=== PATIENT | male | born 1945 | race Caucasian/White ===

== ENCOUNTER 2019-01-20 15:51 | Emergency (ER) | payer OTHER ==
[2019-01-20] MEDS ORDERED: ENALAPRILAT 1.25 MG/ML VIAL IV ONE (16:29)
[2019-01-20 16:49] LABS: Absolute Lymphocytes (CBC) 2.4 K/uL (0.7-4.9); Absolute Neutrophil 4.6 K/uL (1.8-8.0); Basophils % 1.4 % (0-1.3); Eosinophils % 4.1 % (0-4.4); Hematocrit 51.9 % (39.6-49.0); Lymphocytes % 28.4 % (15.3-44.8); MPV 9.7 fL (7.6-11.3); Monocytes % 11.6 % (3.3-12.3); RBC Red Blood Cell Count 5.48 M/uL (4.33-5.43)
[2019-01-20 16:52] LABS: Potassium 3.3 mmol/L (3.5-5.1)
--- NOTE | 2019-01-20 17:00 | ER ---
Nurse's Notes [facility] Name: Miguel Baxter Age: 73 yrs Sex: Male : 1945 Arrival Date: 01/20/2019 Time: 16:00 Bed 6 Private MD: Diagnosis: Essential (primary) hypertension Presentation: 01/20 15:51 Presenting complaint: EMS states: [facility] and they saw that his BP was elevated. Denies CP or SOB. Transition of care: patient was not received from another setting of care. Onset of symptoms was January 20, 2019. Risk Assessment: Do you want to hurt yourself or someone else? Patient reports no desire to harm self or others. Initial Sepsis Screen: Does the patient meet any 2 criteria? No. Patient's initial sepsis screen is negative. Does the patient have a suspected source of infection? No. Patient's initial sepsis screen is negative. Care prior to arrival: None. 15:51 Method Of Arrival: EMS: [facility] sv 15:51 Acuity: JANAY 2 sv Triage Assessment: 15:51 General: Appears in no apparent distress. comfortable, well groomed, well developed, sv Behavior is calm, cooperative, appropriate for age. Pain: Denies pain. Neuro: Level of Consciousness is awake, alert, obeys commands, Oriented to person, place, time, situation, Moves all extremities. Full function Gait is steady, Speech is normal. Respiratory: Airway is patent Respiratory effort is even, unlabored, Respiratory pattern is regular, symmetrical, Denies shortness of breath. Derm: Skin is pink, warm \T\ dry. Musculoskeletal: Range of motion: intact in all extremities. Historical: - Allergies: 16:06 Iodine; sv - Home Meds: 16:14 atorvastatin 20 mg oral tab 1 tab once daily [Active]; finasteride 5 mg oral tab 1 tab sv once daily [Active]; lisinopril 20 mg Oral tab 1 tab once daily [Active]; Nifediac CC 60 mg bedtime Oral [Active]; omeprazole 20 mg Oral cpDR 1 cap once daily [Active]; sertraline 100 mg oral tab 1 tab once daily [Active]; sildenafil oral 100 mg 1/2 tab PO prior to intercourse take 60 mins before for erectile dysfunction oral [Active]; thiamine HCl (vitamin B1) 100 mg Oral tab daily [Active]; aspirin 81 mg Oral chew 1 tab once daily [Active]; etodolac 400 mg Oral tab 1 tab 2 times per day [Active]; - PMHx: 16:14 High Cholesterol; Hypertension; sv - PSHx: 16:14 AAA repair; stent, R leg; sv - Immunization history:: Adult Immunizations up to date, Flu vaccine is up to date. - Social history:: Smoking status: Patient uses tobacco products, smokes two packs cigarettes per day. Patient uses alcohol, on a daily basis. 4-5 beers. - Ebola Screening: : No symptoms or risks identified at this time. Screenin:51 Abuse screen: Denies threats or abuse. Denies injuries from another. Nutritional sv screening: No deficits noted. Tuberculosis screening: No symptoms or risk factors identified. Fall Risk None identified. Assessment: 16:33 Reassessment: Patient appears in no apparent distress at this time. No changes from sv previously documented assessment. Patient and/or family updated on plan of care and expected duration. Pain level reassessed. Patient is alert, oriented x 3, equal unlabored respirations, skin warm/dry/pink. 17:19 Reassessment: Patient appears in no apparent distress at this time. No changes from sv previously documented assessment. Patient and/or family updated on plan of care and expected duration. Pain level reassessed. Patient is alert, oriented x 3, equal unlabored respirations, skin warm/dry/pink. Vital Signs: 15:55 BP 244 / 103; Pulse 67; Resp 16; Temp 98.3; Pulse Ox 96% ; Weight 62.6 kg; Height 5 ft. sv 9 in. (175.26 cm); Pain 0/10; 16:36 BP 189 / 95; Pulse 65; Resp 16; Pulse Ox 95% ; sv 17:03 BP 188 / 94; Pulse 64; Resp 18; Pulse Ox 96% ; sv 15:55 Body Mass Index 20.38 (62.60 kg, 175.26 cm) sv 17:03 Informed Maurice ALBARRAN of vitals before discharge, ok to discharge. sv ED Course: 15:51 Patient has correct armband on for positive identification. Bed in low position. Call sv light in reach. Pulse ox on. NIBP on. Door closed. Head of bed elevated. 16:00 Patient arrived in ED. sv 16:01 Annie Olmos RN is Primary Nurse. sv 16:02 Bo Gann MD is Attending Physician. june 16:04 Triage completed. sv 16:09 Arm band placed on. sv 16:10 Maurice Dubois PA is PHCP. jrParish 16:24 EKG done, by poultry field service technician. reviewed by Maurice ALBARRAN. sm3 16:25 Initial lab(s) drawn, by az, sent to lab. Inserted saline lock: 20 gauge in right sv forearm, using aseptic technique. Blood collected. Flushed right forearm with 5 ml normal saline. 16:34 Awaiting lab results. sv 17:18 No provider procedures requiring assistance completed. IV discontinued, intact, sv bleeding controlled, No redness/swelling at site. Pressure dressing applied. Administered Medications: 16:31 Drug: Enalaprilat 1.25 mg Route: IV; Rate: calculated rate; Site: right forearm; sv 16:33 Follow up: Response: No adverse reaction; IV Status: Completed infusion; IV Intake: 1ml sv Intake: 16:33 IV: 1ml; Total: 1ml. sv Outcome: 16:59 Discharge ordered by . simba 17:18 Discharged to home ambulatory, with family. sv 17:18 Condition: stable 17:18 Discharge instructions given to patient, Instructed on discharge instructions, follow up and referral plans. Demonstrated understanding of instructions, follow-up care. 17:19 Patient left the ED. sv Signatures: Annie Olmos RN RN Bo Gann MD MD cha Roszak, Josh, PA PA jr8 Bertha Tee 3 Corrections: (The following items were deleted from the chart) 17:18 17:03 BP 188 / 94; Pulse 64bpm; Resp 18bpm; Pulse Ox 96%; sv sv
--- NOTE | 2019-01-20 17:01 | EDPHYS ---
Physician Documentation [facility] Name: Miguel Baxter Age: 73 yrs Sex: Male : 1945 Arrival Date: 01/20/2019 Time: 16:00 Bed 6 Private MD: ED Physician Bo Gann HPI: 01/20 16:57 This 73 yrs old Male presents to ER via EMS with complaints of High Blood jr8 Pressure. 16:57 The patient has elevated blood pressure and discovered this at a physician's office, [facility] and sent to the emergency department for evaluation. Onset: The symptoms/episode began/occurred acutely, today. Associated signs and symptoms: The patient has no apparent associated signs or symptoms. Severity of symptoms: At its worst the blood pressure was moderate, in the emergency department the blood pressure is unchanged. It is unknown whether or not the patient has had similar symptoms in the past. The patient has been recently seen by a physician:. Patient was at [facility] office today for routine care. Noted that patients blood pressure was markedly elevated. Denies s/s. Stated that he has forgot to take his HTN meds for the past three days . Historical: - Allergies: 16:06 Iodine; sv - Home Meds: 16:14 atorvastatin 20 mg oral tab 1 tab once daily [Active]; finasteride 5 mg oral tab 1 tab sv once daily [Active]; lisinopril 20 mg Oral tab 1 tab once daily [Active]; Nifediac CC 60 mg bedtime Oral [Active]; omeprazole 20 mg Oral cpDR 1 cap once daily [Active]; sertraline 100 mg oral tab 1 tab once daily [Active]; sildenafil oral 100 mg 1/2 tab PO prior to intercourse take 60 mins before for erectile dysfunction oral [Active]; thiamine HCl (vitamin B1) 100 mg Oral tab daily [Active]; aspirin 81 mg Oral chew 1 tab once daily [Active]; etodolac 400 mg Oral tab 1 tab 2 times per day [Active]; - PMHx: 16:14 High Cholesterol; Hypertension; sv - PSHx: 16:14 AAA repair; stent, R leg; sv - Immunization history:: Adult Immunizations up to date, Flu vaccine is up to date. - Social history:: Smoking status: Patient uses tobacco products, smokes two packs cigarettes per day. Patient uses alcohol, on a daily basis. 4-5 beers. - Ebola Screening: : No symptoms or risks identified at this time. ROS: 16:57 Constitutional: Negative for fever, chills, and weight loss. jr8 16:57 All other systems are negative. Exam: 16:57 Eyes: Pupils equal round and reactive to light, extra-ocular motions intact. Lids and jr8 lashes normal. Conjunctiva and sclera are non-icteric and not injected. Cornea within normal limits. Periorbital areas with no swelling, redness, or edema. ENT: Nares patent. No nasal discharge, no septal abnormalities noted. Tympanic membranes are normal and external auditory canals are clear. Oropharynx with no redness, swelling, or masses, exudates, or evidence of obstruction, uvula midline. Mucous membranes moist. Neck: Trachea midline, no thyromegaly or masses palpated, and no cervical lymphadenopathy. Supple, full range of motion without nuchal rigidity, or vertebral point tenderness. No Meningismus. Cardiovascular: Regular rate and rhythm with a normal S1 and S2. No gallops, murmurs, or rubs. Normal PMI, no JVD. No pulse deficits. Respiratory: Lungs have equal breath sounds bilaterally, clear to auscultation and percussion. No rales, rhonchi or wheezes noted. No increased work of breathing, no retractions or nasal flaring. Abdomen/GI: Soft, non-tender, with normal bowel sounds. No distension or tympany. No guarding or rebound. No evidence of tenderness throughout. Back: No spinal tenderness. No costovertebral tenderness. Full range of motion. Skin: Warm, dry with normal turgor. Normal color with no rashes, no lesions, and no evidence of cellulitis. MS/ Extremity: Pulses equal, no cyanosis. Neurovascular intact. Full, normal range of motion. Neuro: Awake and alert, GCS 15, oriented to person, place, time, and situation. Cranial nerves II-XII grossly intact. Motor strength 5/5 in all extremities. Sensory grossly intact. Cerebellar exam normal. Normal gait. Vital Signs: 15:55 BP 244 / 103; Pulse 67; Resp 16; Temp 98.3; Pulse Ox 96% ; Weight 62.6 kg; Height 5 ft. sv 9 in. (175.26 cm); Pain 0/10; 16:36 BP 189 / 95; Pulse 65; Resp 16; Pulse Ox 95% ; sv 17:03 BP 188 / 94; Pulse 64; Resp 18; Pulse Ox 96% ; sv 15:55 Body Mass Index 20.38 (62.60 kg, 175.26 cm) sv 17:03 Informed Maurice ALBARRAN of vitals before discharge, ok to discharge. sv MDM: 16:02 Patient medically screened. [facility] 16:57 Data reviewed: vital signs, nurses notes, lab test result(s), EKG, and as a result, I jr8 will discharge patient. Data interpreted: Pulse oximetry: on room air is 95 %. Interpretation: normal. Counseling: I had a detailed discussion with the patient and/or guardian regarding: the historical points, exam findings, and any diagnostic results supporting the discharge/admit diagnosis, lab results, the need for outpatient follow up, a family practitioner, to return to the emergency department if symptoms worsen or persist or if there are any questions or concerns that arise at home. ED course: Blood pressure decreased. Patient still asymptomatic. Will send home to take his normal BP meds at home . 01/20 16:10 Order name: CBC with Diff; Complete Time: 16:56 01/20 16:10 Order name: Basic Metabolic Panel; Complete Time: 16:56 8 01/20 16:10 Order name: EKG - Nurse/Tech; Complete Time: 16:31 8 01/20 16:10 Order name: EKG; Complete Time: 16:10 8 01/20 16:10 Order name: IV; Complete Time: 16:31 Administered Medications: 16:31 Drug: Enalaprilat 1.25 mg Route: IV; Rate: calculated rate; Site: right forearm; sv 16:33 Follow up: Response: No adverse reaction; IV Status: Completed infusion; IV Intake: 1ml sv Disposition: 01/20/19 16:59 Discharged to Home. Impression: Essential (primary) hypertension. - Condition is Stable. - Discharge Instructions: Hypertension. - Medication Reconciliation Form, Thank You Letter, Antibiotic Education, Prescription Opioid Use form. - Follow up: Private Physician; When: 1 - 2 days; Reason: Recheck today's complaints, Continuance of care, Re-evaluation by your physician. - Problem is new. - Symptoms have improved. Signatures: Dispatcher [employer] EDMS Nickolas, Annie, KARLOS RN Bo Jaime MD MD cha Roszak, Josh, PA PA jr8 Corrections: (The following items were deleted from the chart) 17:19 16:59 01/20/2019 16:59 Discharged to Home. Impression: Essential (primary) sv hypertension. Condition is Stable. Forms are Medication Reconciliation Form, Thank You Letter, Antibiotic Education, Prescription Opioid Use. Follow up: Private Physician; When: 1 - 2 days; Reason: Recheck today's complaints, Continuance of care, Re-evaluation by your physician. Problem is new. Symptoms have improved. jr8
--- NOTE | 2019-01-21 06:57 | EKG ---
Test Date: 2019-01-20 Test Time: 16:11:52 Reservoir Engineering Manager: [place] MEASUREMENT RESULTS: Intervals: Rate: 66 OK: 200 QRSD: 96 QT: 458 QTc: 480 [place]: P: 73 OK: 200 QRS: -67 T: 35 INTERPRETIVE STATEMENTS: Normal sinus rhythm Incomplete right bundle branch block Left anterior fascicular block Moderate voltage criteria for LVH, may be normal variant Inferior infarct, age undetermined Cannot rule out Anterior infarct, age undetermined Abnormal ECG No previous ECG available for comparison Electronically Signed On 01-21-19 06:56:09 SMASH HAND by Tobi Vela
== END 2019-01-20 17:19 | disposition home or self-care (01) ==
LOC: ER 15:51
DX: I10 Essential (primary) hypertension (principal); E78.00 Pure hypercholesterolemia, unspecified; F17.210 Nicotine dependence, cigarettes, uncomplicated; Z79.82 Long term (current) use of aspirin; Z91.048 Other nonmedicinal substance allergy status
CPT/HCPCS: 36415; 80048; 85025; 93005; 96374; 99284

== ENCOUNTER 2020-01-15 12:33 | Emergency (ER) | payer OTHER ==
--- NOTE | 2020-01-15 14:37 | RAD REPORT ---
EXAM DESCRIPTION: CT - Head Brain Wo Cont - 01/15/2020 2:25 pm CLINICAL HISTORY: HEADACHE, hypertension COMPARISON: Head Brain Wo Cont dated 12/31/2016; Facial Bones W/ Mpr dated 12/31/2016 TECHNIQUE: Axial 5 mm thick images of the head were obtained without IV contrast. All CT scans are performed using dose optimization technique as appropriate and may include automated exposure control or mA/KV adjustment according to patient size. FINDINGS: No intracranial hemorrhage, mass, edema or shift of mid-line structures. No acute infarcti on changes seen. No cortical edema or sulcal effacement. Moderate atrophy present with ventricles in proportion. Mild to moderate chronic ischemic changes are present. Small lacunar type infarctions are seen in the bilateral basal ganglia. Thalamus and brainstem tissues also show chronic ischemic nice es. Arterial and physiologic calcifications are present. Mastoid air cells are clear. No globe or orbital content abnormality. Right maxillary sinus mucosal t hickening changes are present. There is complete opacification of the left maxillary sinus with soft tissue opacification in the left nasal passage. The left nasal passage component is not new but is pr ogressive from 2017 comparison. The left maxillary sinus was fully opacified in 2017 as well. No acute bony findings. Arterial tree calcifications are present. IMPRESSION: Moderate severity atrophy and chronic ischemic change not substantially different from c omparison. No hemorrhage or acute intracranial finding seen. Chronic ischemic change can mask nonhemorrhagic acute CVA. Complete opacification of the left maxillary sinus extending into the left nasal passage. This is pro bably a slowly progressive polyposis. Malignancy is unlikely but not entirely excluded. Follow-up EN T consultation may be helpful to evaluate the progressive left nasal finding.
--- NOTE | 2020-01-15 14:40 | RAD REPORT ---
EXAM DESCRIPTION: RAD - Chest Single View - 01/15/2020 2:23 pm CLINICAL HISTORY: Hypertension COMPARISON: No comparisons TECHNIQUE: AP portable chest image was obtained 01/15/2020 2:23 pm . FINDINGS: Clear of a focal infiltrate or mass. Interstitial pattern is mildly prominent suspected to be baseline. Mediastinal and hilar regions within normal limits. Heart size is upper normal. Vascula ture within normal limits. No measurable pleural effusion and no pneumothorax. No acute bony abnormal ity seen. No acute aortic findings suspected. IMPRESSION: No acute lung parenchymal process seen. Heart size is upper normal. No failure or volume overload findings.
[2020-01-15 14:51] LABS: Absolute Lymphocytes (CBC) 2.5 K/uL (0.7-4.9); Basophils % 1.3 % (0-1.3); Hematocrit 45.7 % (39.6-49.0); Lymphocytes % 21.3 % (15.3-44.8); MPV 9.3 fL (7.6-11.3); RBC Red Blood Cell Count 4.87 M/uL (4.33-5.43)
[2020-01-15 14:52] LABS: Protime INR 1.11
[2020-01-15 15:09] LABS: ALT/SGPT 21 U/L (12-78); AST/SGOT 18 U/L (15-37); Albumin 3.4 g/dL (3.4-5.0); Alkaline Phosphatase 109 U/L (45-117); BUN Blood Urea Nitrogen 18 mg/dL (7-18); Bicarbonate 31 mmol/L (21-32); Bilirubin Direct 0.1 mg/dL (0-0.2); Bilirubin Total 0.3 mg/dL (0.2-1.0); Glucose Level 108 mg/dL (74-106); Potassium 3.8 mmol/L (3.5-5.1); Protein, Total 7.5 g/dL (6.4-8.2); Sodium Level 142 mmol/L (136-145); Troponin (Emerg Dept Use Only) < 0.02 ng/mL (0.0-0.045)
[2020-01-15] MEDS ORDERED: cloNIDine HCL 0.1 MG TAB ONE ×2 (16:11→17:02)
--- NOTE | 2020-01-15 17:35 | EDPHYS ---
Physician Documentation [facility] Name: Miguel Baxter Age: 74 yrs Sex: Male : 1945 Arrival Date: 01/15/2020 Time: 12:36 Bed 5 Private MD: ED Physician Andrew Jang HPI: 01/15 14:09 This 74 yrs old Male presents to ER via Ambulatory with complaints of High pm1 Blood Pressure, Headache. 14:09 The patient has elevated blood pressure and discovered this at a physician's office, pm1 and sent to the emergency department for evaluation. Onset: The symptoms/episode began/occurred elevated blood pressure for the past three months. Modifying factors: The symptoms are aggravated by Nothing, The symptoms are alleviated by Nothing. Associated signs and symptoms: Pertinent positives: headache, Pertinent negatives: chest pain, dizziness, dyspnea, nausea, vomiting, abdominal pain. Severity of symptoms: in the emergency department the blood pressure is unchanged, PCP with difficulty improving his blood pressure for the past few months. Not improved with current blood pressure medications. Recently had his losartan changed. Currently taking losartan 100 mg daily and Procardia 60 mg daily. The patient has experienced similar episodes in the past, hypertension chronically and headache for the past two days. Headache present to occipital area. The patient has been recently seen by a physician: the patient's primary care provider, with similar presenting complaints, and was sent to the [facility] Emergency Department for further evaluation. Historical: - Allergies: 13:00 Iodine; hb - Home Meds: 14:29 aspirin 81 mg Oral chew 1 tab once daily [Active]; sertraline 100 mg Oral tab 1 tab em once daily [Active]; etodolac 400 mg Oral tab 1 tab 2 times per day [Active]; finasteride 5 mg Oral tab 1 tab once daily [Active]; omeprazole 20 mg Oral cpDR 1 cap once daily [Active]; thiamine HCl (vitamin B1) 100 mg Oral tab daily [Active]; Nifediac CC 60 mg bedtime Oral [Active]; - PMHx: 13:00 High Cholesterol; Hypertension; hb - PSHx: 13:00 AAA repair; stent, R leg; hb - Immunization history:: Adult Immunizations up to date. - Coronavirus screen:: The patient has NOT traveled to [place] in the past 14 days. The patient has NOT had contact with known/suspected case of Coronavirus? Proceed with normal triage procedures. - Social history:: Smoking status: Patient reports the use of cigarette tobacco products, smokes one pack cigarettes per day. - Ebola Screening: : No symptoms or risks identified at this time. ROS: 14:09 Constitutional: Negative for fever, chills, and weight loss, Eyes: Negative for injury, pm1 pain, redness, and discharge, ENT: Negative for injury, pain, and discharge, Neck: Negative for injury, pain, and swelling, Cardiovascular: Negative for chest pain, palpitations, and edema, Respiratory: Negative for shortness of breath, cough, wheezing, and pleuritic chest pain, Abdomen/GI: Negative for abdominal pain, nausea, vomiting, diarrhea, and constipation, Back: Negative for injury and pain, MS/Extremity: Negative for injury and deformity, Skin: Negative for injury, rash, and discoloration. 14:09 Neuro: Positive for headache, Negative for dizziness, numbness, tingling, weakness. Exam: 14:09 Constitutional: This is a well developed, well nourished patient who is awake, alert, pm1 and in no acute distress. Head/Face: Normocephalic, atraumatic. Eyes: Pupils equal round and reactive to light, extra-ocular motions intact. Lids and lashes normal. Conjunctiva and sclera are non-icteric and not injected. Cornea within normal limits. Periorbital areas with no swelling, redness, or edema. ENT: Nares patent. No nasal discharge, no septal abnormalities noted. Tympanic membranes are normal and external auditory canals are clear. Oropharynx with no redness, swelling, or masses, exudates, or evidence of obstruction, uvula midline. Mucous membranes moist. Neck: Trachea midline, no thyromegaly or masses palpated, and no cervical lymphadenopathy. Supple, full range of motion without nuchal rigidity, or vertebral point tenderness. No Meningismus. Chest/axilla: Normal chest wall appearance and motion. Nontender with no deformity. No lesions are appreciated. Cardiovascular: Regular rate and rhythm with a normal S1 and S2. No gallops, murmurs, or rubs Respiratory: Lungs have equal breath sounds bilaterally, clear to auscultation and percussion. No rales, rhonchi or wheezes noted. No increased work of breathing, no retractions or nasal flaring. Abdomen/GI: Soft, non-tender, with normal bowel sounds. No distension or tympany. No guarding or rebound. No evidence of tenderness throughout. Back: No spinal tenderness. No costovertebral tenderness. Full range of motion. Skin: Warm, dry with normal turgor. Normal color with no rashes, no lesions, and no evidence of cellulitis. MS/ Extremity: Pulses equal, no cyanosis. Neurovascular intact. Full, normal range of motion. 14:09 Neuro: Orientation: is normal, Mentation: is normal, Motor: is normal, moves all fours. Vital Signs: 12:58 BP 192 / 86; Pulse 54; Resp 16; Temp 97.38; Pulse Ox 100% on R/A; Weight 58.97 kg; hb Height 5 ft. 9 in. (175.26 cm); Pain 7/10; 14:30 BP 205 / 90; Pulse 48; Resp 18; Pulse Ox 100% on R/A; Pain 0/10; em 15:00 BP 221 / 92; Pulse 51; Resp 16; Pulse Ox 99% ; sv 16:00 BP 220 / 90; Pulse 51; Resp 18; Pulse Ox 100% on R/A; Pain 0/10; em 17:00 BP 200 / 97; Pulse 50; Resp 18; Pulse Ox 99% on R/A; Pain 0/10; em 17:30 BP 210 / 89; Pulse 51; Resp 16; Pulse Ox 99% on R/A; Pain 0/10; em 18:03 BP 201 / 92; Pulse 48; Resp 16; Pulse Ox 99% on R/A; Pain 0/10; em 12:58 Body Mass Index 19.20 (58.97 kg, 175.26 cm) hb MDM: 14:00 Patient medically screened. pm1 14:06 Data reviewed: vital signs. Data interpreted: Pulse oximetry: on room air is 100 %. pm1 Interpretation: normal. 17:32 Counseling: I had a detailed discussion with the patient and/or guardian regarding: the pm1 historical points, exam findings, and any diagnostic results supporting the discharge/admit diagnosis, lab results, radiology results, the need for outpatient follow up, a family practitioner, to return to the emergency department if symptoms worsen or persist or if there are any questions or concerns that arise at home. 17:55 ED course: Patient with hypertension, systolic 200 to 220's for at least the past three pm1 months. Patient currently taking Losartan 100 mg and Procardia 60 mg. Patient reports that he used to take 3 medications in the past for HTN. Explained to the patient that he does not have any current signs of end organ damage and that he needs to follow up with his PCP for continued management of his hypertension. It will need to be lower slowly over time, weeks, with stronger hypertensive medications and quite possibly more than just two blood pressure medications. 01/15 14:09 Order name: Troponin (emerg Dept Use Only); Complete Time: 15:12 pm1 01/15 14:09 Order name: Basic Metabolic Panel; Complete Time: 15:12 pm1 01/15 14:09 Order name: CT Head Brain wo Cont; Complete Time: 14:46 pm1 01/15 14:09 Order name: CBC with Diff; Complete Time: 15:00 pm1 01/15 14:09 Order name: LFT's; Complete Time: 15:12 pm1 01/15 14:09 Order name: PT-INR; Complete Time: 15:00 pm1 01/15 14:09 Order name: XRAY Chest (1 view); Complete Time: 14:46 pm1 01/15 14:09 Order name: EKG; Complete Time: 14:11 pm1 01/15 14:09 Order name: Cardiac monitoring; Complete Time: 16:41 pm1 01/15 14:09 Order name: EKG - Nurse/Tech; Complete Time: 16:41 pm1 01/15 14:09 Order name: IV Saline Lock; Complete Time: 14:47 pm1 01/15 14:09 Order name: Labs collected and sent; Complete Time: 14:47 pm1 01/15 14:09 Order name: O2 Per Protocol; Complete Time: 14:47 pm1 01/15 14:09 Order name: O2 Sat Monitoring; Complete Time: 14:47 pm1 Administered Medications: 16:09 Drug: cloNIDine 0.2 mg Route: PO; em 17:04 Follow up: Response: No adverse reaction; Blood pressure is unchanged em 17:04 Drug: cloNIDine 0.1 mg Route: PO; em 18:03 Follow up: Response: No adverse reaction; Blood pressure is unchanged em Disposition: 19:08 Co-signature as Attending Physician, Andrew Jang MD I agree with the assessment and kdr plan of care. Disposition: 01/15/20 17:34 Discharged to Home. Impression: Essential (primary) hypertension, Headache. - Condition is Stable. - Discharge Instructions: General Headache Without Cause, Hypertension, How to Take Your Blood Pressure, Xgdd-ax-Ospt, DASH Eating Plan, Managing Your Hypertension. - Medication Reconciliation Form, Thank You Letter, Antibiotic Education, Prescription Opioid Use form. - Follow up: Emergency Department; When: As needed; Reason: Worsening of condition. Follow up: Private Physician; When: 2 - 3 days; Reason: Recheck today's complaints, Continuance of care, Re-evaluation by your physician. - Problem is new. - Symptoms have improved. Signatures: Dispatcher [employer] EDMS Andrew Jang MD MD [facility] Gaudencio Estevez RN RN em Jamal Samayoa, KNOCKOUT WORKER KNOCKOUT WORKER pm1 Malia Ludwig RN RN Corrections: (The following items were deleted from the chart) 18:04 17:34 01/15/2020 17:34 Discharged to Home. Impression: Essential (primary) em hypertension; Headache. Condition is Stable. Forms are Medication Reconciliation Form, Thank You Letter, Antibiotic Education, Prescription Opioid Use. Follow up: Emergency Department; When: As needed; Reason: Worsening of condition. Follow up: Private Physician; When: 2 - 3 days; Reason: Recheck today's complaints, Continuance of care, Re-evaluation by your physician. Problem is new. Symptoms have improved. pm1
--- NOTE | 2020-01-15 17:35 | ER ---
Nurse's Notes [facility] Name: Miguel Baxter Age: 74 yrs Sex: Male : 1945 Arrival Date: 01/15/2020 Time: 12:36 Bed 5 Private MD: Diagnosis: Essential (primary) hypertension;Headache Presentation: 01/15 12:57 Presenting complaint: Sent [facility] for BP 222/100 and headache x 2 days. hb Transition of care: patient was not received from another setting of care. Onset of symptoms was January 14, 2020. Risk Assessment: Do you want to hurt yourself or someone else? Patient reports no desire to harm self or others. Care prior to arrival: None. 12:57 Method Of Arrival: Ambulatory hb 12:57 Acuity: JANAY 3 hb Triage Assessment: 18:01 Pain: Also complains of. em Historical: - Allergies: 13:00 Iodine; hb - Home Meds: 14:29 aspirin 81 mg Oral chew 1 tab once daily [Active]; sertraline 100 mg Oral tab 1 tab em once daily [Active]; etodolac 400 mg Oral tab 1 tab 2 times per day [Active]; finasteride 5 mg Oral tab 1 tab once daily [Active]; omeprazole 20 mg Oral cpDR 1 cap once daily [Active]; thiamine HCl (vitamin B1) 100 mg Oral tab daily [Active]; Nifediac CC 60 mg bedtime Oral [Active]; - PMHx: 13:00 High Cholesterol; Hypertension; hb - PSHx: 13:00 AAA repair; stent, R leg; hb - Immunization history:: Adult Immunizations up to date. - Coronavirus screen:: The patient has NOT traveled to [place] in the past 14 days. The patient has NOT had contact with known/suspected case of Coronavirus? Proceed with normal triage procedures. - Social history:: Smoking status: Patient reports the use of cigarette tobacco products, smokes one pack cigarettes per day. - Ebola Screening: : No symptoms or risks identified at this time. Screenin:10 Abuse screen: Denies threats or abuse. Nutritional screening: No deficits noted. em Tuberculosis screening: No symptoms or risk factors identified. Fall Risk None identified. Assessment: 14:10 General: Appears in no apparent distress. comfortable, Behavior is calm, cooperative, em appropriate for age. Pain: Denies pain. Neuro: Level of Consciousness is awake, alert, obeys commands, Oriented to person, place, time, situation, Appropriate for age Reports headache occipital area. Cardiovascular: Capillary refill < 3 seconds Patient's skin is warm and dry. Respiratory: Airway is patent Respiratory effort is even, unlabored, Respiratory pattern is regular, symmetrical. GI: Patient currently denies nausea, vomiting. Derm: Skin is intact, is thin, Skin is dry, Skin is pink, warm \T\ dry. Musculoskeletal: Capillary refill < 3 seconds, Range of motion: intact in all extremities. 14:17 Reassessment: xray at bedside at this time. em 14:30 Reassessment: BP 205/90, HR 49, provider notified, no new orders received. em 16:00 Reassessment: Patient appears in no apparent distress at this time. Patient and/or em family updated on plan of care and expected duration. Pain level reassessed. Patient is alert, oriented x 3, equal unlabored respirations, skin warm/dry/pink. Patient denies pain at this time. 17:00 Reassessment: Patient appears in no apparent distress at this time. Patient and/or em family updated on plan of care and expected duration. Pain level reassessed. Patient is alert, oriented x 3, equal unlabored respirations, skin warm/dry/pink. Patient denies pain at this time. Patient states feeling better. 17:50 Reassessment: Patient appears in no apparent distress at this time. Patient and/or em family updated on plan of care and expected duration. Pain level reassessed. Patient is alert, oriented x 3, equal unlabored respirations, skin warm/dry/pink. provider notified of BP, at bedside discussing POC Patient denies pain at this time. Patient states feeling better. Vital Signs: 12:58 BP 192 / 86; Pulse 54; Resp 16; Temp 97.38; Pulse Ox 100% on R/A; Weight 58.97 kg; hb Height 5 ft. 9 in. (175.26 cm); Pain 7/10; 14:30 BP 205 / 90; Pulse 48; Resp 18; Pulse Ox 100% on R/A; Pain 0/10; em 15:00 BP 221 / 92; Pulse 51; Resp 16; Pulse Ox 99% ; sv 16:00 BP 220 / 90; Pulse 51; Resp 18; Pulse Ox 100% on R/A; Pain 0/10; em 17:00 BP 200 / 97; Pulse 50; Resp 18; Pulse Ox 99% on R/A; Pain 0/10; em 17:30 BP 210 / 89; Pulse 51; Resp 16; Pulse Ox 99% on R/A; Pain 0/10; em 18:03 BP 201 / 92; Pulse 48; Resp 16; Pulse Ox 99% on R/A; Pain 0/10; em 12:58 Body Mass Index 19.20 (58.97 kg, 175.26 cm) hb ED Course: 12:36 Patient arrived in ED. ag5 12:58 Triage completed. hb 12:59 Arm band placed on. hb 13:32 Jamal Samayoa, ARA is PHCP. pm1 13:32 Andrew Jang MD is Attending Physician. pm1 13:49 Gaudencio Estevez, RN is Primary Nurse. em 14:10 Patient has correct armband on for positive identification. Bed in low position. Call em light in reach. Side rails up X2. Adult w/ patient. Pulse ox on. NIBP on. 14:22 XRAY Chest (1 view) In Process Unspecified. EDMS 14:25 CT Head Brain wo Cont In Process Unspecified. EDMS 14:38 Initial lab(s) drawn, by me, sent to lab. Inserted saline lock: 20 gauge in right dh3 forearm, using aseptic technique. Blood collected. 17:45 No provider procedures requiring assistance completed. em 18:01 IV discontinued, intact, bleeding controlled, No redness/swelling at site. Pressure em dressing applied. Administered Medications: 16:09 Drug: cloNIDine 0.2 mg Route: PO; em 17:04 Follow up: Response: No adverse reaction; Blood pressure is unchanged em 17:04 Drug: cloNIDine 0.1 mg Route: PO; em 18:03 Follow up: Response: No adverse reaction; Blood pressure is unchanged em Outcome: 17:34 Discharge ordered by . pm1 18:01 Discharged to home ambulatory, with family. em 18:01 Condition: good 18:01 Discharge instructions given to patient, Instructed on discharge instructions, follow up and referral plans. Demonstrated understanding of instructions, follow-up care. 18:04 Patient left the ED. em Signatures: Dispatcher [employer] EDAnnie Eddy RN RN Gaudencio Ortega, RN RN Jamal Hinds, HOT SAW OPERATOR HOT SAW OPERATOR pm1 Malia Ludwig RN RN Domitila Sears 3 Tracey Henao 5
--- NOTE | 2020-01-16 16:29 | EKG ---
Test Date: 2020-01-15 Test Time: 15:34:28 Assistant Operator: TC MEASUREMENT RESULTS: Intervals: Rate: 50 MI: 252 QRSD: 90 QT: 544 QTc: 495 [place]: P: 91 MI: 252 QRS: -73 T: 22 INTERPRETIVE STATEMENTS: Sinus bradycardia with 1st degree AV block Left axis deviation Minimal voltage criteria for LVH, may be normal variant Inferior infarct, age undetermined Anteroseptal infarct, age undetermined Abnormal ECG Compared to ECG 01/20/2019 16:11:52 First degree AV block now present Left-axis deviation now present Sinus rhythm no longer present Incomplete right bundle-branch block no longer present Left anterior fascicular block no longer present Myocardial infarct finding still present Electronically Signed On 01-16-20 16:27:39 HEAVY MOBILE EQUIPMENT REPAIRER by Tobi Vela
== END 2020-01-15 18:04 | disposition home or self-care (01) ==
LOC: ER 12:33
DX: I10 Essential (primary) hypertension (principal); R51 Headache; Z91.09 Other allergy status, other than to drugs and biological substances; Z95.5 Presence of coronary angioplasty implant and graft
CPT/HCPCS: 36415; 70450; 71045; 80048; 80076; 84484; 85025; 85610; 93005; 99284

== ENCOUNTER 2020-02-14 15:25 | Inpatient (IN) | payer OTHER ==
[2020-02-14 16:14] LABS: Absolute Lymphocytes (CBC) 2.5 K/uL (0.7-4.9); Basophils % 2.3 % (0-1.3); Hematocrit 41.8 % (39.6-49.0); Lymphocytes % 24.6 % (15.3-44.8); MPV 8.9 fL (7.6-11.3); RBC Red Blood Cell Count 4.51 M/uL (4.33-5.43)
[2020-02-14 16:18] LABS: Protime INR 1.08
[2020-02-14 16:23] LABS: BUN Blood Urea Nitrogen 20 mg/dL (7-18); Bicarbonate 30 mmol/L (21-32); Glucose Level 102 mg/dL (74-106); Potassium 3.6 mmol/L (3.5-5.1); Sodium Level 143 mmol/L (136-145)
--- NOTE | 2020-02-14 17:10 | RAD REPORT ---
EXAM DESCRIPTION: CT - Head Brain Wo Cont - 02/14/2020 4:12 pm CLINICAL HISTORY: right eye dysconjugate gaze COMPARISON: Head Brain Wo Cont dated 01/15/2020Head Brain Wo Cont dated 01/15/2020; Chest Single View dated 02/14/2020CT head January 15 TECHNIQUE: Axial 5 mm thick images of the head were obtained without IV contrast. All CT scans are performed using dose optimization technique as appropriate and may include automated exposure control or mA/KV adjustment according to patient size. FINDINGS: No intracranial hemorrhage, mass, edema or shift of mid-line structures. No acute cortical based infarction identified. No cortical edema or sulcal effacement prominent atrophy matching charisma rison. Ventricles are in proportion. Chronic ischemic changes are present also similar to comparison. Patient has old ischemic insults in the right thalamus, right internal capsule and left basal gangli a. There is diminished attenuation in the lateral right basal ganglia that is progressive from Februa ry. This is probably subacute infarction that has progressed from December. CVA in this location woul d not likely generate visual changes. Mastoid air cells are clear. Extensive paranasal sinus disease is present similar to comparison. Left maxillary sinus changes extend into the left nasal passage likely a polyposis. This can be correlate d with follow-up physical exam. No acute bony findings. IMPRESSION: No intracranial hemorrhage is present. No acute cortical based infarction identified. Patient has prominent atrophy and chronic ischemic change. There is a new subacute area of infarction in the lateral aspect of the right basal ganglia. CVA in this region would not likely cause visual c hanges. Chronic ischemic changes can mask nonhemorrhagic acute infarction. MR brain followup can be obtained if there is ongoing concern for acute ischemia. Chronic sinusitis and probable polyposis changes not substantially different from December. Correlati on can be made with physical exam findings.
--- NOTE | 2020-02-14 17:16 | RAD REPORT ---
EXAM DESCRIPTION: RAD - Chest Single View - 02/14/2020 4:04 pm CLINICAL HISTORY: Right eye visual disturbance, stroke-like symptoms, shortness of breath COMPARISON: January 15 TECHNIQUE: AP portable chest image was obtained 02/14/2020 4:04 pm . FINDINGS: No focal parenchymal process. Interstitial pattern matches comparison. Heart and vasculatu re are normal. No measurable pleural effusion and no pneumothorax. No acute bony abnormality seen. No acute aortic findings suspected. IMPRESSION: No acute cardiopulmonary process.
--- NOTE | 2020-02-14 17:30 | ER ---
Nurse's Notes [facility] [place] Name: Miguel Baxter Age: 74 yrs Sex: Male : 1945 Arrival Date: 02/14/2020 Time: 15:37 Bed 19 Private MD: Diagnosis: Cerebral infarction-possible TIA Presentation: 02/13 15:46 Chief complaint: EMS states: changes to right eye and vision that started yesterday at iw approx 7pm, eye movements are unsynchronized, right eye seems to lag, pt reports double vision in right eye. Coronavirus screen: Patient denies fever greater than 100.4F, cough, shortness of breath, or difficulty breathing. Proceed with normal triage process. Ebola Screen: Patient negative for fever greater than or equal to 101.5 degrees Fahrenheit, and additional compatible Ebola Virus Disease symptoms Patient denies exposure to infectious person. Patient denies travel to an Ebola-affected area in the 21 days before illness onset. No symptoms or risks identified at this time. 15:46 Method Of Arrival: EMS: [facility] iw 15:46 Acuity: JANAY 2 iw 15:46 Initial Sepsis Screen: Does the patient meet any 2 criteria? No. Patient's initial iw sepsis screen is negative. Does the patient have a suspected source of infection? No. Patient's initial sepsis screen is negative. Risk Assessment: Do you want to hurt yourself or someone else? Patient reports no desire to harm self or others. 15:46 No acute neurological deficit is noted. Pre-hospital glucose is not applicable to this iw patient. 16:00 Onset of symptoms was February 14, 2020. ca1 Stroke Activation: Symptom onset > 6 hours Physician: Stroke Attending; Name: ; Notified At: ; Arrived At: Physician: Chief Stroke Resident; Name: ; Notified At: ; Arrived At: Physician: Stroke Resident; Name: ; Notified At: ; Arrived At: Physician: ED Attending; Name: ; Notified At: ; Arrived At: Physician: ED Resident; Name: ; Notified At: ; Arrived At: Historical: - Allergies: 16:06 Iodine; iw - Home Meds: 16:06 aspirin 81 mg Oral chew 1 tab once daily [Active]; atorvastatin 20 mg Oral tab 1 tab iw once daily [Active]; etodolac 400 mg Oral tab 1 tab 2 times per day [Active]; finasteride 5 mg Oral tab 1 tab once daily [Active]; lisinopril 20 mg Oral tab 1 tab once daily [Active]; Nifediac CC 60 mg bedtime Oral [Active]; omeprazole 20 mg Oral cpDR 1 cap once daily [Active]; sertraline 100 mg Oral tab 1 tab once daily [Active]; sildenafil 100 mg 1/2 tab PO prior to intercourse take 60 mins before for erectile dysfunction Oral [Active]; thiamine HCl (vitamin B1) 100 mg Oral tab daily [Active]; - PMHx: 16:06 High Cholesterol; Hypertension; iw - Immunization history:: Adult Immunizations up to date, Pneumococcal vaccine is up to date, Flu vaccine is up to date. - Social history:: Smoking status: Patient reports the use of cigarette tobacco products, smokes one pack cigarettes per day. Screenin:52 Abuse screen: Denies threats or abuse. Denies injuries from another. Nutritional ca1 screening: No deficits noted. Tuberculosis screening: No symptoms or risk factors identified. Fall Risk IV access (20 points). Assessment: 16:05 Reassessment: Pt to CT. ca1 16:42 VAN Scoring: Arm Drift: Patients demonstrates NO arm weakness. Patient is VAN Negative. ca1 Patient has been NPO before screening. The patient is alert, and able to follow commands. The patient does not exhibit slurred or garbled speech. The patient is not exhibiting difficulty speaking. The patient does not exhibit difficulty understanding words. The patient is able to swallow own secretions with no drooling or need for suction. Patient tolerated one teaspoon of water. No drooling, immediate coughing, gurgling, or clearing of the throat was noted. The patient tolerated 90mL of water. No drooling, immediate coughing, gurgling, or clearing of the throat was noted. The patient passed the bedside swallow screening. Oral medications may be given as ordered. Contact Physician for further diet orders. Provider notified of bedside swallow screening results: Jaaml Samayoa NP. 16:52 General: Appears in no apparent distress. comfortable, Behavior is calm, cooperative, ca1 appropriate for age. Pain: Denies pain. Neuro: Level of Consciousness is awake, alert, obeys commands, Oriented to person, place, time, situation, Appropriate for age Psychologists are equal bilaterally Moves all extremities. Speech is normal, Facial symmetry appears normal, Pupils are PERRLA, Intact Reports diplopia, dizziness. Cardiovascular: Heart tones S1 S2 present Capillary refill < 3 seconds Patient's skin is warm and dry. Rhythm is sinus bradycardia. Respiratory: Airway is patent Respiratory effort is even, unlabored, Respiratory pattern is regular, symmetrical, Breath sounds are clear bilaterally. GI: Abdomen is flat, non-distended, Bowel sounds present X 4 quads. Abd is soft and non tender X 4 quads. : No signs and/or symptoms were reported regarding the genitourinary system. EENT: No signs and/or symptoms were reported regarding the EENT system. Derm: Skin is intact, is healthy with good turgor, Skin is pink, warm \T\ dry. Musculoskeletal: Circulation, motion, and sensation intact. Capillary refill < 3 seconds. 17:05 Reassessment: brother's number [phone]. Irvin for updates please. ca1 17:23 Reassessment: Patient appears in no apparent distress at this time. Patient and/or ca1 family updated on plan of care and expected duration. Pain level reassessed. Patient is alert, oriented x 3, equal unlabored respirations, skin warm/dry/pink. 18:04 Reassessment: Patient appears in no apparent distress at this time. No changes from ca1 previously documented assessment. Patient is alert, oriented x 3, equal unlabored respirations, skin warm/dry/pink. 18:57 Reassessment: Patient appears in no apparent distress at this time. Patient and/or ca1 family updated on plan of care and expected duration. Pain level reassessed. Patient is alert, oriented x 3, equal unlabored respirations, skin warm/dry/pink. 19:10 Reassessment: Patient appears in no apparent distress at this time. Patient and/or wh family updated on plan of care and expected duration. Pain level reassessed. Patient is alert, oriented x 3, equal unlabored respirations, skin warm/dry/pink. Updated PT on POC still waiting for acceptance. 20:18 Reassessment: Patient appears in no apparent distress at this time. No changes from previously documented assessment. Patient and/or family updated on plan of care and expected duration. Pain level reassessed. Patient is alert, oriented x 3, equal unlabored respirations, skin warm/dry/pink. 22:00 Reassessment: Patient appears in no apparent distress at this time. No changes from previously documented assessment. Patient and/or family updated on plan of care and expected duration. Pain level reassessed. Patient is alert, oriented x 3, equal unlabored respirations, skin warm/dry/pink. 23:45 Reassessment: Patient appears in no apparent distress at this time. No changes from previously documented assessment. Patient and/or family updated on plan of care and expected duration. Pain level reassessed. Patient is alert, oriented x 3, equal unlabored respirations, skin warm/dry/pink. Pt sleeping well no signs of distress noted, [facility]. 02/14 01:18 Reassessment: Patient appears in no apparent distress at this time. No changes from previously documented assessment. Patient and/or family updated on plan of care and expected duration. Pain level reassessed. Patient is alert, oriented x 3, equal unlabored respirations, skin warm/dry/pink. Decision to admit Pt explained to Pt. 01:30 Reassessment: received report from Beulah Keith RN for transfer of pt care. jv1 01:51 General: Appears in no apparent distress. comfortable, Behavior is calm, cooperative, jv1 appropriate for age. Pain: Denies pain. Neuro: Level of Consciousness is awake, alert, obeys commands, Oriented to person, place, time, situation, Appropriate for age Psychologists are equal bilaterally Moves all extremities. Speech is normal, Facial symmetry appears normal, Pupils are PERRLA, Intact. Cardiovascular: Heart tones S1 S2 present Capillary refill < 3 seconds Patient's skin is warm and dry. Rhythm is sinus bradycardia. Respiratory: Airway is patent Respiratory effort is even, unlabored, Respiratory pattern is regular, symmetrical, Breath sounds are clear bilaterally. GI: Abdomen is flat, non-distended, Bowel sounds present X 4 quads. Abd is soft and non tender X 4 quads. : No signs and/or symptoms were reported regarding the genitourinary system. EENT: No signs and/or symptoms were reported regarding the EENT system. Derm: Skin is intact, is healthy with good turgor, Skin is pink, warm \T\ dry. Musculoskeletal: Circulation, motion, and sensation intact. Capillary refill < 3 seconds. 02:00 Reassessment: Patient appears in no apparent distress at this time. No changes from jv1 previously documented assessment. Patient and/or family updated on plan of care and expected duration. Pain level reassessed. Patient is alert, oriented x 3, equal unlabored respirations, skin warm/dry/pink. 02:20 Reassessment: called for report but receiving nurse and charge nurse not yet available jv1 because they are giving another pt a bath. 02:45 Reassessment: called report to Isaiah Hansen RN. jv1 Vital Signs: 02/13 15:46 BP 189 / 88; Pulse 50; Resp 16 S; Temp 98.0; Pulse Ox 99% on R/A; Weight 58.97 kg; iw Height 5 ft. 9 in. (175.26 cm); Pain 0/10; 16:42 BP 206 / 82; Pulse 50; Resp 16 S; Pulse Ox 97% on R/A; ca1 17:23 BP 205 / 104; Pulse 52; Resp 17 S; Pulse Ox 97% on R/A; ca1 18:04 BP 189 / 82; Pulse 56; Resp 17 S; Pulse Ox 98% on R/A; ca1 18:35 BP 215 / 93; Pulse 55; Resp 16 S; Pulse Ox 98% on R/A; ca1 19:15 BP 212 / 170; Pulse 55; Resp 18; Pulse Ox 99% on R/A; wh 20:19 BP 184 / 79; Pulse 56; Resp 18; Pulse Ox 99% on R/A; wh 22:00 BP 188 / 64; Pulse 59; Resp 18; Pulse Ox 98% ; wh 23:30 BP 170 / 74; Pulse 57; Resp 16; Pulse Ox 99% ; 02/14 01:00 BP 171 / 74; Pulse 57; Resp 16; Pulse Ox 96% on R/A; wh 01:55 BP 143 / 74; Pulse 57; Resp 18; Temp 98.2; Pulse Ox 95% ; Pain 0/10; jv1 02:33 BP 169 / 88; Pulse 56; Resp 18; Temp 98.3; Pulse Ox 97% ; Pain 0/10; jv1 02/13 15:46 Body Mass Index 19.20 (58.97 kg, 175.26 cm) iw NIH Stroke Scale Scores: 02/13 16:15 NIHSS Score: 1 pm1 19:15 NIHSS Score: 1 wh 21:16 NIHSS Score: 1 ca1 21:24 NIHSS Score: 1 pm1 ED Course: 15:37 Patient arrived in ED. iw 15:39 Jamal Samayoa NP is PHCP. pm1 15:39 Andrew Jang MD is Attending Physician. pm1 15:58 EKG done, by ED staff, reviewed by Andrew Jang MD. ms 16:03 Initial lab(s) drawn, by me, sent to lab. Maintain EMS IV. Dressing intact. Good blood ca1 return noted. Site clean \T\ dry. Gauge \T\ site: [id number]. 16:04 Stroke CXR 1 View In Process Unspecified. EDMS 16:05 Oksana Giang, RN is Primary Nurse. ca1 16:13 CT Head Brain wo Cont In Process Unspecified. EDMS 16:13 Triage completed. iw 16:14 Arm band placed on. iw 16:52 No provider procedures requiring assistance completed. ca1 16:52 Patient has correct armband on for positive identification. Placed in gown. Bed in low ca1 position. Call light in reach. Side rails up X2. readers' advisory service librarian on. Pulse ox on. NIBP on. Warm blanket given. 17:39 initiated a transfer with Naomi from the . A transfer Center/ requests patient chart eb to be faxed/. 20:16 [facility] spoke [facility] she stated they are still pending the transfer. mw2 21:35 called [facility] spoke with Clau she stated they are waiting for the bar staff to mw2 email her back so the transfer is still pending. 22:02 called [facility] spoke to Clau she stated we are still pending transfer. mw2 23:31 called the [facility] got [facility] to a [facility] phone line kept ringing and nobody answered mw2 phone. 02/14 00:26 called the [facility] got transferred to the [facility]. Phone line kept ringing nobody answered. mw2 01:06 called the [facility] spoke with Fiona I told her that I spoke to Clau earlier and she mw2 told me that we are waiting for the polisher eyeglass frames to email her back to transfer the patient. Fiona stated that she told Clau the bar staff won't answer his emails in the middle of the night and that Kenyarjun highly doubted he would be transferred. 01:09 Lindsay Grigsby MD is Hospitalizing Provider. pm1 02:36 Patient admitted, IV remains in place. jv1 Administered Medications: 02/13 17:40 Drug: hydrALAZINE 5 mg Route: IV; Rate: calculated rate; Site: right forearm; ca1 18:05 Follow up: Response: No adverse reaction; Blood pressure is lowered; IV Status: ca1 Completed infusion 17:40 Drug: Aspirin 325 mg Route: PO; ca1 18:05 Follow up: Response: No adverse reaction ca1 19:42 Drug: hydrALAZINE 5 mg {Note: 212/170.} Route: IV; Rate: calculated rate; Site: right wh forearm; 22:01 Follow up: Response: No adverse reaction; Blood pressure is lowered; IV Status: Completed infusion 21:45 Drug: hydrALAZINE 5 mg {Note: 210/87.} Route: IV; Rate: calculated rate; Site: right wh forearm; 02/14 01:21 Follow up: Response: No adverse reaction; IV Status: Completed infusion Outcome: 02/13 17:28 ER care complete, transfer ordered by . pm1 02/14 01:10 Decision to Hospitalize by Provider. pm1 02:34 Admitted to Tele accompanied by tech, via wheelchair, room 408. jv1 02:34 Condition: improved 02:34 Instructed on the need for admit, Demonstrated understanding of instructions. 03:09 Patient left the ED. jv1 NIH Stroke Scale - NIH Stroke Score Date: 02/14/2020 Time: 16:15 Total Score = 1 1a. Level of Consciousness (LOC) - 0(Alert) 1b. Level of Consciousness (LOC) (Year \T\ Age) - 0(Both) 1c. LOC Commands (Open \T\ Closes Eyes/Journal Clerk) - 0(Both) 2. Best Gaze (Lateral Gaze Paresis) - 1(Partial gaze palsy) 3. Visual Field Loss - 0(No visual loss) 4. Facial Palsy - 0(Normal) 5a. Left Arm: Motor (10-second hold) - 0(No drift) 5b. Right Arm: Motor (10-second hold) - 0(No drift) 6a. Left Leg: Motor (5-second hold - always test supine) - 0(No drift) 6b. Right Leg: Motor (5-second hold - always test supine) - 0(No drift) 7. Limb Ataxia (finger/nose \T\ heel/carlson - test with eyes open) - 0(Absent) 8. Sensory Loss (pinprick arms/legs/face) - 0(Normal) 9. Best Language: Aphasia (description/naming/reading) - 0(No aphasia) 10. Dysarthria (speech clarity - read or repeat words) - 0(Normal) 11. Extinction and Inattention (visual/tactile/auditory/spatial/personal) - 0(No abnormality) Initials: pm1 NIH Stroke Scale - NIH Stroke Score Date: 02/14/2020 Time: 19:15 Total Score = 1 1a. Level of Consciousness (LOC) - 0(Alert) 1b. Level of Consciousness (LOC) (Year \T\ Age) - 0(Both) 1c. LOC Commands (Open \T\ Closes Eyes/Journal Clerk) - 0(Both) 2. Best Gaze (Lateral Gaze Paresis) - 0(Normal) 3. Visual Field Loss - 1(Partial hemianopia) 4. Facial Palsy - 0(Normal) 5a. Left Arm: Motor (10-second hold) - 0(No drift) 5b. Right Arm: Motor (10-second hold) - 0(No drift) 6a. Left Leg: Motor (5-second hold - always test supine) - 0(No drift) 6b. Right Leg: Motor (5-second hold - always test supine) - 0(No drift) 7. Limb Ataxia (finger/nose \T\ heel/carlson - test with eyes open) - 0(Absent) 8. Sensory Loss (pinprick arms/legs/face) - 0(Normal) 9. Best Language: Aphasia (description/naming/reading) - 0(No aphasia) 10. Dysarthria (speech clarity - read or repeat words) - 0(Normal) 11. Extinction and Inattention (visual/tactile/auditory/spatial/personal) - 0(No abnormality) Initials: NIH Stroke Scale - NIH Stroke Score Date: 02/14/2020 Time: 21:16 Total Score = 1 1a. Level of Consciousness (LOC) - 0(Alert) 1b. Level of Consciousness (LOC) (Year \T\ Age) - 0(Both) 1c. LOC Commands (Open \T\ Closes Eyes/Journal Clerk) - 0(Both) 2. Best Gaze (Lateral Gaze Paresis) - 1(Partial gaze palsy) 3. Visual Field Loss - 0(No visual loss) 4. Facial Palsy - 0(Normal) 5a. Left Arm: Motor (10-second hold) - 0(No drift) 5b. Right Arm: Motor (10-second hold) - 0(No drift) 6a. Left Leg: Motor (5-second hold - always test supine) - 0(No drift) 6b. Right Leg: Motor (5-second hold - always test supine) - 0(No drift) 7. Limb Ataxia (finger/nose \T\ heel/carlson - test with eyes open) - 0(Absent) 8. Sensory Loss (pinprick arms/legs/face) - 0(Normal) 9. Best Language: Aphasia (description/naming/reading) - 0(No aphasia) 10. Dysarthria (speech clarity - read or repeat words) - 0(Normal) 11. Extinction and Inattention (visual/tactile/auditory/spatial/personal) - 0(No abnormality) Initials: ca1 NIH Stroke Scale - NIH Stroke Score Date: 02/14/2020 Time: 21:24 Total Score = 1 1a. Level of Consciousness (LOC) - 0(Alert) 1b. Level of Consciousness (LOC) (Year \T\ Age) - 0(Both) 1c. LOC Commands (Open \T\ Closes Eyes/Journal Clerk) - 0(Both) 2. Best Gaze (Lateral Gaze Paresis) - 1(Partial gaze palsy) 3. Visual Field Loss - 0(No visual loss) 4. Facial Palsy - 0(Normal) 5a. Left Arm: Motor (10-second hold) - 0(No drift) 5b. Right Arm: Motor (10-second hold) - 0(No drift) 6a. Left Leg: Motor (5-second hold - always test supine) - 0(No drift) 6b. Right Leg: Motor (5-second hold - always test supine) - 0(No drift) 7. Limb Ataxia (finger/nose \T\ heel/carlson - test with eyes open) - 0(Absent) 8. Sensory Loss (pinprick arms/legs/face) - 0(Normal) 9. Best Language: Aphasia (description/naming/reading) - 0(No aphasia) 10. Dysarthria (speech clarity - read or repeat words) - 0(Normal) 11. Extinction and Inattention (visual/tactile/auditory/spatial/personal) - 0(No abnormality) Initials: pm1 Signatures: Dispatcher [employer] Shazia Yee, RN RN iw Rosalee Pak ms Danita, Jamal, MENTAL HEALTH WORKER MENTAL HEALTH WORKER pm1 Beulah Keith, Viji mw2 Goldie Flor Joyce, RN RN jv1 Acob, KARLOS Gandhi RN ca1 Corrections: (The following items were deleted from the chart) 02/13 17:23 16:52 Neuro: Level of Consciousness is awake, alert, obeys commands, Oriented ca1 to person, place, time, situation, Appropriate for age Psychologists are equal bilaterally Moves all extremities. Speech is normal, Facial symmetry appears normal, Intact ca1 18:50 16:52 Neuro: Level of Consciousness is awake, alert, obeys commands, Oriented ca1 to person, place, time, situation, Appropriate for age Psychologists are equal bilaterally Moves all extremities. Speech is normal, Facial symmetry appears normal, Pupils are PERRLA, Intact ca1 21:16 16:52 NIHSS Score: 0 ca1 ca1 02/14 00:29 02/13 23:31 [facility] phone line no body answered mw2 phone mw2
--- NOTE | 2020-02-14 17:30 | EDPHYS ---
Physician Documentation [facility] Name: Miguel Baxter Age: 74 yrs Sex: Male : 1945 Arrival Date: 02/14/2020 Time: 15:37 Bed 19 Private MD: ED Physician Andrew Jang HPI: 02/13 15:47 This 74 yrs old Male presents to ER via EMS with complaints of Right Eye pm1 Problem, Vision Problem. 15:47 The patient is experiencing double vision, right eye gazing to the right side, The pm1 patient sustained None. to the right eye, caused by an unknown mechanism. Onset: The symptoms/episode began/occurred yesterday, at 19:00. Duration: the symptoms are continuous. Aggravated by both eyes open Alleviated by double vision resolved by closing right or left eye. Associated signs and symptoms: Pertinent negatives: fever, headache, weakness, numbness. Severity of symptoms: in the emergency department the symptoms are unchanged Pain is currently a 0 / 10. The patient has not experienced similar symptoms in the past. Historical: - Allergies: 16:06 Iodine; iw - Home Meds: 16:06 aspirin 81 mg Oral chew 1 tab once daily [Active]; atorvastatin 20 mg Oral tab 1 tab iw once daily [Active]; etodolac 400 mg Oral tab 1 tab 2 times per day [Active]; finasteride 5 mg Oral tab 1 tab once daily [Active]; lisinopril 20 mg Oral tab 1 tab once daily [Active]; Nifediac CC 60 mg bedtime Oral [Active]; omeprazole 20 mg Oral cpDR 1 cap once daily [Active]; sertraline 100 mg Oral tab 1 tab once daily [Active]; sildenafil 100 mg 1/2 tab PO prior to intercourse take 60 mins before for erectile dysfunction Oral [Active]; thiamine HCl (vitamin B1) 100 mg Oral tab daily [Active]; - PMHx: 16:06 High Cholesterol; Hypertension; iw - Immunization history:: Adult Immunizations up to date, Pneumococcal vaccine is up to date, Flu vaccine is up to date. - Social history:: Smoking status: Patient reports the use of cigarette tobacco products, smokes one pack cigarettes per day. ROS: 16:15 Constitutional: Negative for fever, chills, and weight loss. pm1 16:15 ENT: Negative for injury, pain, and discharge, Neck: Negative for injury, pain, and swelling, Cardiovascular: Negative for chest pain, palpitations, and edema, Respiratory: Negative for shortness of breath, cough, wheezing, and pleuritic chest pain, Abdomen/GI: Negative for abdominal pain, nausea, vomiting, diarrhea, and constipation, Back: Negative for injury and pain, MS/Extremity: Negative for injury and deformity, Skin: Negative for injury, rash, and discoloration, Neuro: Negative for headache, weakness, numbness, tingling, and seizure. 16:15 Eyes: Positive for double vision. Right eye deviating to lateral side, Negative for blurry vision, itching, pain, redness. Exam: 16:15 Constitutional: This is a well developed, well nourished patient who is awake, alert, pm1 and in no acute distress. Head/Face: Normocephalic, atraumatic. 16:15 Chest/axilla: Normal chest wall appearance and motion. Nontender with no deformity. No lesions are appreciated. Cardiovascular: Regular rate and rhythm with a normal S1 and S2. No gallops, murmurs, or rubs. Normal PMI, no JVD. No pulse deficits. Respiratory: Lungs have equal breath sounds bilaterally, clear to auscultation and percussion. No rales, rhonchi or wheezes noted. No increased work of breathing, no retractions or nasal flaring. Abdomen/GI: Soft, non-tender, with normal bowel sounds. No distension or tympany. No guarding or rebound. No evidence of tenderness throughout. Back: No spinal tenderness. No costovertebral tenderness. Full range of motion. Skin: Warm, dry with normal turgor. Normal color with no rashes, no lesions, and no evidence of cellulitis. MS/ Extremity: Pulses equal, no cyanosis. Neurovascular intact. Full, normal range of motion. 16:15 Eyes: Periorbital structures: appear normal, Pupils: no acute changes, Extraocular movements: nystagmus to right eye as it moves from midline to lateral gaze. Cardinal positions of gaze intact , Conjunctiva: normal, Corneas: are normal, Lids and lashes: appear normal. 16:15 ENT: External ear(s): are unremarkable, Ear canal(s): are normal, Nose: is normal, Mouth: is normal, Posterior pharynx: is normal, airway is patent. 16:15 Neuro: Orientation: is normal, Motor: is normal, moves all fours. Vital Signs: 15:46 BP 189 / 88; Pulse 50; Resp 16 S; Temp 98.0; Pulse Ox 99% on R/A; Weight 58.97 kg; iw Height 5 ft. 9 in. (175.26 cm); Pain 0/10; 16:42 BP 206 / 82; Pulse 50; Resp 16 S; Pulse Ox 97% on R/A; ca1 17:23 BP 205 / 104; Pulse 52; Resp 17 S; Pulse Ox 97% on R/A; ca1 18:04 BP 189 / 82; Pulse 56; Resp 17 S; Pulse Ox 98% on R/A; ca1 18:35 BP 215 / 93; Pulse 55; Resp 16 S; Pulse Ox 98% on R/A; ca1 19:15 BP 212 / 170; Pulse 55; Resp 18; Pulse Ox 99% on R/A; wh 20:19 BP 184 / 79; Pulse 56; Resp 18; Pulse Ox 99% on R/A; wh 22:00 BP 188 / 64; Pulse 59; Resp 18; Pulse Ox 98% ; 23:30 BP 170 / 74; Pulse 57; Resp 16; Pulse Ox 99% ; 02/14 01:00 BP 171 / 74; Pulse 57; Resp 16; Pulse Ox 96% on R/A; 01:55 BP 143 / 74; Pulse 57; Resp 18; Temp 98.2; Pulse Ox 95% ; Pain 0/10; jv1 02:33 BP 169 / 88; Pulse 56; Resp 18; Temp 98.3; Pulse Ox 97% ; Pain 0/10; jv1 02/13 15:46 Body Mass Index 19.20 (58.97 kg, 175.26 cm) NIH Stroke Scale Scores: 02/13 16:15 NIHSS Score: 1 pm1 19:15 NIHSS Score: 1 wh 21:16 NIHSS Score: 1 ca1 21:24 NIHSS Score: 1 pm1 MDM: 15:40 Patient medically screened. pm1 17:17 ED course: TPA not given because the patient's symptoms started at 1900 yesterday which pm1 is approximately 20 hours ago. 17:26 Data reviewed: vital signs. Data interpreted: Pulse oximetry: on room air is 97 %. pm1 Interpretation: normal. Counseling: I had a detailed discussion with the patient and/or guardian regarding: the historical points, exam findings, and any diagnostic results supporting the discharge/admit diagnosis, lab results, radiology results, the need to transfer to another facility. 17:26 ED course: Patient with subacute stroke finding that does not correlate with symptoms pm1 according to neurology. Patient with NIHSS = 1. Patient needs to be admitted for MRI and neurology evaluation. 23:47 Physician consultation: Lindsay Grigsby MD was called at 23:47, was contacted at 23:47, pm1 regarding admission, I have been pending transfer for greater than 5 hours with the [place] therefore I would like to admit him here. Dr. Grigsby would like to attempt to transfer him to the [place] a few more times. 23:47 ED course: Dr. Gamino is insulation nozzleman for 02/15/2020. pm1 02/14 01:07 ED course: digital marketing coordinator from [place] said that she highly doubted that he would be pm1 transferred and the pinball machine repairer does not check e-mails to approve transfers in the middle of the night. Therefore I will keep the patient in the hospital here. 01:07 Physician consultation: Lindsay Grigsby MD was contacted at 01:09, regarding admission, pm1 patient's condition, and will see patient. 02/13 15:47 Order name: Basic Metabolic Panel; Complete Time: 16:24 pm1 02/13 15:47 Order name: CBC with Diff; Complete Time: 16:21 pm1 02/13 15:47 Order name: Protime (+inr); Complete Time: 16:21 pm1 02/13 15:47 Order name: Ptt, Activated; Complete Time: 16:21 pm1 02/13 16:48 Order name: Glucose, Ancillary Testing; Complete Time: 16:52 EDMS 02/14 01:33 Order name: Thyroid Stimulating Hormone EDMS 02/14 01:33 Order name: CBC with Automated Diff EDMS 02/14 01:33 Order name: CBC with Automated Diff EDMS 02/14 01:33 Order name: CBC with Automated Diff EDMS 02/14 01:33 Order name: CBC with Automated Diff EDMS 02/14 01:33 Order name: Lipid Profile EDMS 02/14 01:33 Order name: Lipid Profile EDMS 02/14 01:33 Order name: Magnesium EDMS 02/14 01:33 Order name: Magnesium EDMS 02/13 15:47 Order name: Stroke CXR 1 View; Complete Time: 17:21 pm02/13 15:47 Order name: EKG; Complete Time: 15:49 pm1 02/13 15:57 Order name: CT Head Brain wo Cont; Complete Time: 17:17 pm1 02/14 01:32 Order name: CONS Pharmacy Consult EDMS 02/14 01:32 Order name: Case Management Consult EDMS 02/14 01:33 Order name: Echo with Doppler EDMS 02/14 01:33 Order name: Magnesium EDMS 02/14 01:33 Order name: Magnesium EDMS 02/14 01:33 Order name: Brain With Cont EDMS 02/14 01:33 Order name: Carotid Artery Bilateral EDMS 02/13 15:47 Order name: Accucheck; Complete Time: 16:39 pm1 02/13 15:47 Order name: Cardiac monitoring; Complete Time: 16:30 pm1 02/13 15:47 Order name: EKG - Nurse/Tech; Complete Time: 15:57 pm1 02/13 15:47 Order name: IV Saline Lock; Complete Time: 15:58 pm1 02/13 15:47 Order name: Labs collected and sent; Complete Time: 16:30 pm1 02/13 15:47 Order name: NPO; Complete Time: 15:57 pm1 02/13 15:47 Order name: O2 Per Protocol; Complete Time: 15:58 pm1 02/13 15:47 Order name: O2 Sat Monitoring; Complete Time: 15:58 pm1 02/13 15:47 Order name: Stroke Swallow Screen; Complete Time: 16:41 pm1 02/14 01:33 Order name: CONS Physician Consult EDMS 02/14 01:33 Order name: Physical Therapy Consult EDTX 02/14 01:33 Order name: Clear Liquid EDTX Administered Medications: 02/13 17:40 Drug: hydrALAZINE 5 mg Route: IV; Rate: calculated rate; Site: right forearm; ca1 18:05 Follow up: Response: No adverse reaction; Blood pressure is lowered; IV Status: ca1 Completed infusion 17:40 Drug: Aspirin 325 mg Route: PO; ca1 18:05 Follow up: Response: No adverse reaction ca1 19:42 Drug: hydrALAZINE 5 mg {Note: 212/170.} Route: IV; Rate: calculated rate; Site: right forearm; 22:01 Follow up: Response: No adverse reaction; Blood pressure is lowered; IV Status: Completed infusion 21:45 Drug: hydrALAZINE 5 mg {Note: 210/87.} Route: IV; Rate: calculated rate; Site: right forearm; 02/14 01:21 Follow up: Response: No adverse reaction; IV Status: Completed infusion Disposition: 07:29 Co-signature as Attending Physician, Andrew Jang MD I agree with the assessment and kdr plan of care. Disposition: 02/15/20 01:10 Hospitalization ordered by Lindsay Grigsby for Inpatient Admission. Preliminary diagnosis is Cerebral infarction - possible TIA. - Bed requested for Telemetry/MedSurg (Inpatient). - Status is Inpatient Admission. jv1 - Condition is Stable. - Problem is new. - Symptoms have improved. NIH Stroke Scale - NIH Stroke Score Date: 02/14/2020 Time: 16:15 Total Score = 1 1a. Level of Consciousness (LOC) - 0(Alert) 1b. Level of Consciousness (LOC) (Year \T\ Age) - 0(Both) 1c. LOC Commands (Open \T\ Closes Eyes/Internet Sales Associate) - 0(Both) 2. Best Gaze (Lateral Gaze Paresis) - 1(Partial gaze palsy) 3. Visual Field Loss - 0(No visual loss) 4. Facial Palsy - 0(Normal) 5a. Left Arm: Motor (10-second hold) - 0(No drift) 5b. Right Arm: Motor (10-second hold) - 0(No drift) 6a. Left Leg: Motor (5-second hold - always test supine) - 0(No drift) 6b. Right Leg: Motor (5-second hold - always test supine) - 0(No drift) 7. Limb Ataxia (finger/nose \T\ heel/carlson - test with eyes open) - 0(Absent) 8. Sensory Loss (pinprick arms/legs/face) - 0(Normal) 9. Best Language: Aphasia (description/naming/reading) - 0(No aphasia) 10. Dysarthria (speech clarity - read or repeat words) - 0(Normal) 11. Extinction and Inattention (visual/tactile/auditory/spatial/personal) - 0(No abnormality) Initials: pm1 NIH Stroke Scale - NIH Stroke Score Date: 02/14/2020 Time: 19:15 Total Score = 1 1a. Level of Consciousness (LOC) - 0(Alert) 1b. Level of Consciousness (LOC) (Year \T\ Age) - 0(Both) 1c. LOC Commands (Open \T\ Closes Eyes/Internet Sales Associate) - 0(Both) 2. Best Gaze (Lateral Gaze Paresis) - 0(Normal) 3. Visual Field Loss - 1(Partial hemianopia) 4. Facial Palsy - 0(Normal) 5a. Left Arm: Motor (10-second hold) - 0(No drift) 5b. Right Arm: Motor (10-second hold) - 0(No drift) 6a. Left Leg: Motor (5-second hold - always test supine) - 0(No drift) 6b. Right Leg: Motor (5-second hold - always test supine) - 0(No drift) 7. Limb Ataxia (finger/nose \T\ heel/carlson - test with eyes open) - 0(Absent) 8. Sensory Loss (pinprick arms/legs/face) - 0(Normal) 9. Best Language: Aphasia (description/naming/reading) - 0(No aphasia) 10. Dysarthria (speech clarity - read or repeat words) - 0(Normal) 11. Extinction and Inattention (visual/tactile/auditory/spatial/personal) - 0(No abnormality) Initials: NIH Stroke Scale - NIH Stroke Score Date: 02/14/2020 Time: 21:16 Total Score = 1 1a. Level of Consciousness (LOC) - 0(Alert) 1b. Level of Consciousness (LOC) (Year \T\ Age) - 0(Both) 1c. LOC Commands (Open \T\ Closes Eyes/Internet Sales Associate) - 0(Both) 2. Best Gaze (Lateral Gaze Paresis) - 1(Partial gaze palsy) 3. Visual Field Loss - 0(No visual loss) 4. Facial Palsy - 0(Normal) 5a. Left Arm: Motor (10-second hold) - 0(No drift) 5b. Right Arm: Motor (10-second hold) - 0(No drift) 6a. Left Leg: Motor (5-second hold - always test supine) - 0(No drift) 6b. Right Leg: Motor (5-second hold - always test supine) - 0(No drift) 7. Limb Ataxia (finger/nose \T\ heel/carlson - test with eyes open) - 0(Absent) 8. Sensory Loss (pinprick arms/legs/face) - 0(Normal) 9. Best Language: Aphasia (description/naming/reading) - 0(No aphasia) 10. Dysarthria (speech clarity - read or repeat words) - 0(Normal) 11. Extinction and Inattention (visual/tactile/auditory/spatial/personal) - 0(No abnormality) Initials: ca1 NIH Stroke Scale - NIH Stroke Score Date: 02/14/2020 Time: 21:24 Total Score = 1 1a. Level of Consciousness (LOC) - 0(Alert) 1b. Level of Consciousness (LOC) (Year \T\ Age) - 0(Both) 1c. LOC Commands (Open \T\ Closes Eyes/Internet Sales Associate) - 0(Both) 2. Best Gaze (Lateral Gaze Paresis) - 1(Partial gaze palsy) 3. Visual Field Loss - 0(No visual loss) 4. Facial Palsy - 0(Normal) 5a. Left Arm: Motor (10-second hold) - 0(No drift) 5b. Right Arm: Motor (10-second hold) - 0(No drift) 6a. Left Leg: Motor (5-second hold - always test supine) - 0(No drift) 6b. Right Leg: Motor (5-second hold - always test supine) - 0(No drift) 7. Limb Ataxia (finger/nose \T\ heel/carlson - test with eyes open) - 0(Absent) 8. Sensory Loss (pinprick arms/legs/face) - 0(Normal) 9. Best Language: Aphasia (description/naming/reading) - 0(No aphasia) 10. Dysarthria (speech clarity - read or repeat words) - 0(Normal) 11. Extinction and Inattention (visual/tactile/auditory/spatial/personal) - 0(No abnormality) Initials: pm1 Signatures: Dispatcher [employer] EDMS Andrew Jang MD MD kdr Williams, Irene, RN RN iw Juanita Davis RN RN cg Marinas, Patrick, ARA [employer] MERCHANDISING MANAGER pm1 Beulah Keith Joyce, RN RN jv1 Oksana Giang RN RN ca1 Corrections: (The following items were deleted from the chart) 02/13 16:03 15:48 CT-STROKE BRAIN W/O CONTRAST+CT.RAD.BRZ ordered. EDTX EDMS 16:14 15:56 Head Angio+CT.RAD.BRZ ordered. EDTX EDMS 21:13 16:15 NIHSS Score: 0 pm1 pm1 02/14 01:09 02/13 17:28 02/14/2020 17:28 Transfer ordered to [facility]. Diagnosis is Cerebral infarction. Reason for transfer: Specialty. Accepting physician is [place]. Condition is Stable. Problem is new. Symptoms have improved. pm1 02/14 01:42 01:10 Hospitalization Ordered by Lindsay Grigsby MD for Inpatient Admission. cg Preliminary diagnosis is Cerebral infarction - possible TIA. Bed requested for Telemetry/MedSurg (Inpatient). Status is Inpatient Admission. Condition is Stable. Problem is new. Symptoms have improved. pm1 03:09 01:42 02/15/2020 01:10 Hospitalization Ordered by Lindsay Grigsby MD for jv1 Inpatient Admission. Preliminary diagnosis is Cerebral infarction - possible TIA. Bed requested for Telemetry/MedSurg (Inpatient). Status is Inpatient Admission. Condition is Stable. Problem is new. Symptoms have improved. cg
[2020-02-14] MEDS ORDERED: ASPIRIN 325 MG TAB ONE (17:38)
[2020-02-14] MEDS ORDERED: HYDRALAZINE HCL 20 MG/ML VIAL ONE ×2 (17:38→19:42)
--- NOTE | 2020-02-15 01:19 | P.HP ---
Certification for Inpatient Patient admitted to: Observation With expected LOS: <2 Midnights Patient will require the following post-hospital care: Home Health Services Practitioner: I am a practitioner with admitting privileges, knowledge of patient current condition, hospital course, and medical plan of care. Services: Services provided to patient in accordance with Admission requirements found in Title 42 Section 412.3 of the Code of Federal Regulations Patient History Date of Service: 02/15/20 Reason for admission: Right eye blurred vision History of Present Illness: 74-year-old with past medical history of hypertension, hyperlipidemia, the recent history of fall with facial trauma 1 month ago; presented now because of blurred vision in the right eye since the last 1 day. Patient denies any headache, he denies any fever. On presentation in the ER he was noted with dysconjugate gaze of the right eye. Head CT shows evidence of subacute infarcts in the basal ganglia bleed which does not explain the right eye dysconjugate gaze. [facility] but remained ED ER for over 6 hr. He has been admitted here now pending the acceptance. His blood pressure remained on control with presentation blood pressure of systolic of 210 over 100s. Allergies iodine Allergy (Intermediate, Unverified 02/15/20 03:20) Hives Penicillins Allergy (Unknown, Verified 02/15/20 03:20) unknown Home medications list reviewed: Yes - Past Medical/Surgical History -: Hypertension -: Hyperlipidemia Past Surgical History: Reviewed- Non-Contributory - Family History Family History: Reviewed- Non-Contributory - Social History Smoking Status: Current every day smoker Counseled patient to stop smoking for: less than 10 minutes Smoking therapy provided: Yes Alcohol use: Yes CD- Drugs: No Caffeine use: No Place of Residence: Home Review of Systems General: Unremarkable Eyes: Vision Change ENT: Unremarkable Respiratory: Unremarkable Cardiovascular: Unremarkable Gastrointestinal: Unremarkable Genitourinary: Unremarkable Musculoskeletal: Unremarkable Neurological: Unremarkable Lymphatics: Unremarkable Physical Examination - Physical Exam General: Alert, In no apparent distress, Cooperative HEENT: Atraumatic, Normocephalic, PERRLA, Other (resolved dysconjugate gaze of the right eye, no nystagmus) Neck: 2+ carotid pulse no bruit, JVD not distended, No Thyromegaly Respiratory: Clear to auscultation bilaterally, Normal air movement Cardiovascular: No edema, Normal pulses, Regular rate/rhythm, Normal S1 S2 Capillary refill: <2 Seconds Gastrointestinal: Normal bowel sounds, Soft and benign, Non-distended Musculoskeletal: No clubbing, No swelling Integumentary: No rashes, No breakdown Neurological: Normal speech, Normal strength at 5/5 x4 extr, Normal tone - Studies Laboratory Data (last 24 hrs) 02/14/20 16:03: PT 12.7 H, INR 1.08, APTT 31.1 02/14/20 16:03: WBC 10.1, Hgb 14.4, Hct 41.8, Plt Count 213 02/14/20 16:03: Sodium 143, Potassium 3.6, BUN 20 H, Creatinine 0.77, Glucose 102 Imagings Data: Chest x-ray that is no acute abnormality CT of the head-IMPRESSION: No intracranial hemorrhage is present. No acute cortical based infarction identified. Patient has prominent atrophy and chronic ischemic change. There is a new subacute area of infarction in the lateral aspect of the right basal ganglia. CVA in this region would not likely cause visual changes. Chronic ischemic changes can mask nonhemorrhagic acute infarction. MR brain followup can be obtained if there is ongoing concern for acute ischemia. Chronic sinusitis and probable polyposis changes not substantially different from December. Correlation can be made with physical exam findings. Assessment and Plan - Problems (Diagnosis) (1) CVA (cerebral vascular accident) Current Visit: Yes Status: Acute (2) HTN (hypertension) Current Visit: Yes Status: Acute (3) Tobacco abuse Current Visit: Yes Status: Acute - Advance Directives Does patient have a Living Will: No Does patient have a Durable POA for Healthcare: No Physician Review: Patient Assessed, Agree with Above Assessment and Plan Physician Review Additional Text: # right eye dysconjugate gaze-probably due to new CVA vs TIA - Eye exam unrevealing at time of interview - which was 36 hrs from symptoms onset -will obtain MRI of the brain -will obtain carotid Doppler as well as echocardiogram -we start patient on empirical aspirin 325 mg daily now, will consult Neurology in a.m. -we keep blood pressure within acceptable parameters the in acute CVA sitting # hypertension-start low-dose Norvasc, IV hydralazine to keep a MAP between 100 now 120 # chronic tobacco abuse-start nicotine patch # disposition-transfer to [place] when bed available Time Spent Managing Pts Care (In Minutes): 65
[2020-02-15] MEDS ORDERED: ONDANSETRON 4 MG/2 ML VIAL IV PRN (01:23)
[2020-02-15] MEDS ORDERED: LORAZEPAM 0.5 MG TABLET PO PRN (01:23)
[2020-02-15] MEDS ORDERED: MORPHINE 2 MG/ML SYR IV PRN (01:25)
[2020-02-15] MEDS ORDERED: AMLODIPINE 5 MG TAB PO ONE (01:29)
[2020-02-15] MEDS: NS KCL 20MEQ 20 MEQ/1,000 ML BAG IV SCH ×2 (02:00→22:00)
[2020-02-15] MEDS ORDERED: AMLODIPINE 5 MG TAB ONE (02:58)
[2020-02-15] MEDS ORDERED: NS KCL 20MEQ 1,000 ML IV ONE (02:58)
[2020-02-15] MEDS: HYDRALAZINE HCL 20 MG/ML VIAL IV PRN ×4 (03:57→21:52)
[2020-02-15 04:14] VITALS: BMI 19.0
[2020-02-15 05:04] LABS: Magnesium 2.3 mg/dL (1.8-2.4); Thyroid Stimulating Hormone 2.39 uIU/mL (0.360-3.740)
--- NOTE | 2020-02-15 07:25 | EKG ---
Test Date: 2020-02-14 Test Time: 15:53:40 Cap Maker: JAVY MEASUREMENT RESULTS: Intervals: Rate: 49 WY: 250 QRSD: 98 QT: 506 QTc: 457 [place]: P: 73 WY: 250 QRS: -54 T: 4 INTERPRETIVE STATEMENTS: Sinus bradycardia with 1st degree AV block Left anterior fascicular block Minimal voltage criteria for LVH, may be normal variant Inferior infarct, age undetermined Cannot rule out Anteroseptal infarct, age undetermined Abnormal ECG Compared to ECG 01/15/2020 15:34:28 Left anterior fascicular block now present Left-axis deviation no longer present Myocardial infarct finding still present Electronically Signed On 02-15-20 07:24:40 CDT by Tobi Vela
[2020-02-15] MEDS ORDERED: AMLODIPINE 5 MG TAB PO SCH (09:00)
--- NOTE | 2020-02-15 09:00 | RAD REPORT ---
EXAM DESCRIPTION: USCarotid Artery Bilateral02/15/2020 8:35 am CLINICAL HISTORY: CVA COMPARISON: None FINDINGS: The velocity of the right internal carotid artery equals 53 cm/sec. The right ICA/CCA rati o 0.7 The velocity of the left internal carotid artery equals 75 cm/sec. The left ICA/CCA ratio 1.4 Mild plaque is present within the right internal carotid artery. Moderate to marked soft plaque is pr esent within the left internal carotid artery. The vertebral arteries demonstrate antegrade flow IMPRESSION: Moderate to marked soft plaque within the left internal carotid artery which appears to result in a stenosis of approximately 65-75% NASCET criteria used. Mild 0-49% stenosis Moderate 50-69% stenosis Severe 70-99% stenosis
--- NOTE | 2020-02-15 09:31 | RAD REPORT ---
EXAM DESCRIPTION: MRI - Brain W/Wo Cont - 02/15/2020 8:29 am CLINICAL HISTORY: CVA COMPARISON: February 14, [address] TECHNIQUE: Axial, sagittal, and coronal magnetic images of the brain were obtained. 13 cc MultiHance administered intravenously FINDINGS: 14 millimeter area of abnormal signal within the right basal ganglia has the appearance of acute infarction. Mild to moderate signal within periventricular, deep and subcortical white matter probably ischemic c hanges secondary to small vessel disease The ventricles are normal in caliber. The 1 centimeter old infarct left gnan radiata. 12 millimeter old infarct right occipital lobe. No abnormal enhancement within the brain is seen. An extra-axial fluid collection is not noted. Complete opacification of the maxillary sinuses bilaterally compatible sinusitis IMPRESSION: 14 millimeter tissue right basal ganglia infarct. Exam was discussed with patient's nurs waldo Fine 9:22 a.m. February 15, 2020
[2020-02-15] MEDS: PANTOPRAZOLE 40MG TABLET PO SCH ×2 (10:05→16:52)
[2020-02-15] MEDS: NICOTINE 21 MG/PAT TD SCH (10:05)
[2020-02-15] MEDS: ASPIRIN EC 81 MG TAB PO SCH (10:05)
[2020-02-15] MEDS: HEPARIN 5000 UNIT/ML 1 ML VIAL SQ SCH ×2 (10:05→16:52)
--- NOTE | 2020-02-15 11:32 | PN ---
Date of Progress Note: 02/15/2020 CODE STATUS FULL Subjective: Patient seen and examined. Chart reviewed and case discussed with RN. Patient doing well, still has blurry vision. Medications: List reviewed. Physical Examination: Vital Signs: Temperature 97.6, heart rate 57, blood pressure 175/83, respirations 16, O2 at 95% on room air. General: Awake, alert, oriented x3. Appears older than stated age, frail, cachectic male. BMI 19. CV: S1 and S2. Regular rate and rhythm. Peripheral pulses present. Respiratory: Moving air well bilaterally. No wheezing or stridor. Gastrointestinal: Abdomen is soft, nontender, nondistended. Positive bowel sounds. Extremities: No clubbing, cyanosis, or edema. Neurologic: Nonfocal. Strength is symmetric, bilateral upper and lower extremities. Laboratory Data: Magnesium 2.3. TSH is 2.3. Carotid artery ultrasound shows moderate to marked soft plaque within the left internal carotid artery, which appears to result in his stenosis approximately 65% to 75%. MRI of the brain shows a 14 mm tissue right basal ganglia infarct. Assessment And Plan: 1. 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 We will start on stroke guidelines, aspirin and statin. Carotid artery ultrasound also shows some 65% to 75% stenosis in the left internal carotid artery. We will get MRA neck and head to further evaluate. 2. Essential hypertension. Followup permissive hypertension or discontinue nifedipine due to acute cerebrovascular accident. 3. Nicotine dependence with cigarette smoking. Counseled. 4. Blurry vision, possibly due to cerebrovascular accident. 5. Deep vein thrombosis prophylaxis with Lovenox plan. 6. Mixed hyperlipidemia. We will check lipid panel. Plan neurology consultation. Patient is awaiting transfer to [facility]. We will transfer once accepted. DORIS Voice ID: [id number] Report ID: [id number] SHIRIN
--- NOTE | 2020-02-15 11:57 | ECHO ---
HEIGHT: 5 ft 9 in WEIGHT: 128 lb 11.2 oz DATE OF STUDY: 02/15/[address]: Lindsay Grigsby MD 2-DIMENSIONAL: YES M.MODE: YES DOPPLER: YES COLOR FLOW: YES TDS: NO PORTABLE: NO DEFINITY: NO BUBBLE STUDY: NO DIAGNOSIS: CEREBRAL VASCULAR ACCIDENT CARDIAC HISTORY: CATHERIZATION: NO SURGERY: NO PROSTHETIC VALVE: NO PACEMAKER: NO MEASUREMENTS (cm) DIASTOLIC (NORMALS) SYSTOLIC (NORMALS) IVSd 1.2 (0.6-1.2) LA Diam (1.9-4.0) LVEF 69% LVIDd 4.7 (3.5-5.7) LVIDs 2.9 (2.0-3.5) %FS 38% LVPWd 1.2 (0.6-1.2) Ao Diam 3.4 (2.0-3.7) 2 DIMENSIONAL ASSESSMENT: RIGHT ATRIUM: NORMAL LEFT ATRIUM: NORMAL RIGHT VENTRICLE: NORMAL LEFT VENTRICLE: NORMAL TRICUSPID VALVE: NORMAL MITRAL VALVE: NORMAL PULMONIC VALVE: NORMAL AORTIC VALVE: NORMAL PERICARDIAL EFFUSION: NONE AORTIC ROOT: NORMAL LEFT VENTRICULAR WALL MOTION: NORMAL. DOPPLER/COLOR FLOW: NORMAL. COMMENTS: NORMAL 2D ECHO WITH DOPPLER. NO WALL MOTION ABNORMALITY. NO CLOTS. NO EFFUSION. TECHNOLOGIST: WARNER THOMAS
--- NOTE | 2020-02-15 13:00 | RAD REPORT ---
EXAM DESCRIPTION: MRI - MRA Head Wo Cont - 02/15/2020 12:42 pm CLINICAL HISTORY: Acute CVA COMPARISON: MRI brain February 14, CT head February 13 TECHNIQUE: Axial and coronal 3D [id number] image acquisition was performed. 3D rotational images were generated with source and reconstruction images reviewed. Horizontal and vertical axis rotation al views generated using MIP protocol. FINDINGS: Exam has motion degradation limitations. Distal right vertebral artery is not visualized. This is further detailed on MRA neck examination. Ba silar artery and distal left vertebral artery show no significant findings. Minimal atherosclerotic c hanges are present in the left posterior cerebral artery. Diminished distal right [employer] is identified b ut no acute infarction seen on the MRI examination. Distal internal carotid arteries show no suspicio us findings. The anterior and middle cerebral arteries show atherosclerotic changes in the peripheral branches. The right MCA M1 segment would likely supplied the perforating branches at the area of inf arction. This vessel does not show significant disease. No aneurysm or vascular malformation. IMPRESSION: Significantly diminished size of the far peripheral branches of the right posterior cere bral artery. MRI imaging shows no acute infarction in the distribution of this vascular distribution. There is a questionable subacute or chronic area of ischemic injury in the right occipital lobe. Right M1 MCA vessel, likely site of perforating branches at the area of acute infarction, shows no si gnificant degree of atherosclerotic change. Mild to moderate atherosclerotic changes in the far peripheral bilateral MCA branches. No aneurysm or vascular malformation.
--- NOTE | 2020-02-15 13:13 | RAD REPORT ---
EXAM DESCRIPTION: MRI - MRA Neck With Cont - 02/15/2020 12:42 pm CLINICAL HISTORY: Right basal ganglia acute CVA COMPARISON: MRI head same date, MRA head same date TECHNIQUE: MR angiography of the cervical vasculature performed. Coronal imaging plane acquisition u tilized. A MultiHance contrast volume was utilized. Coronal reformatted images were generated and re viewed. Vertical axis 3D rotational projections obtained using maximum intensity projection protocol. FINDINGS: Aortic arch is 3 vessel with no origins stenosis. Imaged portions of the subclavian arteri es show no significant disease. Left vertebral artery origin is normal. Right vertebral artery origin is normal. Left vertebral artery is dominant. The smaller right vertebral artery terminates at the p osterior inferior cerebellar artery. No dissection or significant stenosis in the vertebral vasculatu re. Basilar artery is mildly tortuous but otherwise unremarkable. Bilateral common carotid arteries s how no dissection or significant disease. Right bulb and right ICA show no significant disease. The l eft bulb ICA junction shows atherosclerotic changes and luminal narrowing estimated at 60%. IMPRESSION: Approximately 60% stenosis at the left carotid bulb ICA junction. No other significant atherosclerotic changes seen. No abnormality on this examination as an embolic s ource for the right basal ganglia CVA.
--- NOTE | 2020-02-15 19:59 | CON ---
Reason For Consultation: Consultation called because of possible stroke. History Of Present Illness: Mr. Baxter is a 74-year-old right-handed patient with uncontr olled diabetes mellitus, multiple prior TIAs and strokes, who came to [facility] after 1 day of double vision and blurred right eye vision. The patient said that the event apparently started o n the and it seemed sudden and he could not resolve 2 objects into 1. He also had blurred visio n in the right eye. He has additional risk factors besides hypertension to include smoking for many years, at least 1 pack of cigarettes daily. I have asked for possible head CT scan, showed prominent atrophy and chronic ischemic change. There was a new subacute infarction in the lateral aspect of t he right basal ganglia; however, did not explain the patient's visual disturbances. Subsequent brain MRI done the following day identified a 14 mm right basal ganglia stroke. Further, the patient did have an old left gann radiata stroke measuring 1 cm and a 12 mm old right occipital stroke and in a ddition to moderate small-vessel ischemic disease. The patient's uncontrolled hypertension along wit h smoking likely the common etiology for the findings. His magnetic resonance angiogram of the neck identified, this is head and neck, the right M1 MCA likely perforated branches. It showed no acute i nfarction in that region and there were mild to moderate arthrosclerotic changes in the far periphera l bilateral MCA branches, but no aneurysm or vascular malformations were identified. His cervical sp ine MRI did show 60% stenosis in the left carotid bulb internal carotid artery junction; however, the patient did not have a likely embolic stroke, but this stroke was likely from hypertension and lipoh yalinosis and further his stenosis of 60% in the left carotid bulb and his stroke is on the right rj e. The patient was not taking aspirin or Plavix or any blood thinner regularly and was not very complian t with medications. Past Medical History: As indicated in addition to dyslipidemia. Allergies: IODINE, PENICILLIN. Family History: Very contributory. Patient has multiple family members including multiple brothers with myocardial infarction status post cardiac stent and strokes in his father as well who at yo ariana age from a stroke. Social History: Smokes on a daily basis, at least 1 pack of cigarettes daily. Does drink alcohol on a regular basis, in the past drank very heavily. Review of Systems: He reports no recent fevers or chills, nausea, vomiting, myalgia, arthralgias, rash, headache, weight change, psychiatric complaints, gastrointestinal or genitourinary issues. Physical Examination: Vital Signs: Blood pressure 200/90, pulse 60, respiratory rate 18, temperature 97.5, oxygen saturati on 96% on room air. Weight 128 pounds, height 5 feet 9 inches, BMI 19. General: Mr. Baxter is resting in bed. He appears unkempt and much older than stated age. He is o therwise normocephalic, atraumatic. His sclerae are anicteric. Oropharynx is pink and moist. Neck: Supple. Chest: Clear. Heart: Regular. Extremities: Show no significant edema, cyanosis or clubbing. Neurologic: Cranial nerves remarkable for right eye external rotation where he also sees double visi on when looking straight ahead. It does resolve somewhat when looking to the far right and slightly worse when looking to the left. He also squints a lot with the right eye given the blurred vision an d double vision. Otherwise, his cranial nerves 2 through 12 are intact. Motor examination of the ar ms and legs, he does have some mild diffuse weakness in the upper and lower extremities with a slight tremor noted, which he says has been for years since he has been drinking alcohol heavily. Tremors, flexion-extension in the hands when doing fine movement or coming close to his face. In the lower e xtremities, no focal weakness in the legs. Sensory exam, he has a loss of stocking glove like to lig ht touch, pinprick, temperature in the legs and arms. Reflexes depressed in the upper and lower extr emities. Coordination slow but intact in the upper and lower extremities. With gait, he is able to stand and ambulate with the therapist with moderate assistance. Laboratory Studies: Complete blood count with differential is unremarkable. Coagulation panel, INR 1.08. Chemistries show a slightly elevated BUN of 20 and chloride of 109, otherwise unremarkable. G lucose 84 range up to 102, triglycerides 108, total cholesterol 151, LDL cholesterol 83, HDL choleste rol 32, cholesterol HDL ratio is 4.72. TSH 2.390. Assessment: Mr. Baxter is a 74-year-old patient with multiple stroke risk factors including chronic alcohol, tobacco abuse and uncontrolled hypertension. He has a strong family history of stroke. He was not taking antiplatelet medication. Plan: 1.Aspirin 81 mg daily. 2.Folate 1 mg daily. 3.Plavix 75 mg daily. 4.He should be on a high-dose statin given his LDL being greater than 70. 5.He may be considered for rehabilitation, potential outpatient speech therapy as he would likely no t necessarily qualify for inpatient rehabilitation given his mobilization and his ability to transfer well, although that still may be evaluated. 6.Patient was counseled strongly on the need to stop drinking alcohol and smoking cigarettes. 7.Once discharged, he may follow up in Dr. Gamino's clinic in 1 month or later. SHRUTHI Voice ID: [id number] Report ID: [id number]
[2020-02-15] MEDS: FINASTERIDE 5 MG TAB PO SCH (21:51)
[2020-02-15] MEDS: ATORVASTATIN 40 MG TAB PO SCH (21:52)
[2020-02-16] MEDS: NS KCL 20MEQ 20 MEQ/1,000 ML BAG IV SCH ×2 (00:53→16:43)
[2020-02-16] MEDS: HEPARIN 5000 UNIT/ML 1 ML VIAL SQ SCH ×3 (00:53→16:38)
[2020-02-16 04:45] LABS: Absolute Lymphocytes (CBC) 2.7 K/uL (0.7-4.9); Basophils % 1.5 % (0-1.3); Hematocrit 43.1 % (39.6-49.0); Lymphocytes % 21.7 % (15.3-44.8); MPV 9.2 fL (7.6-11.3); RBC Red Blood Cell Count 4.62 M/uL (4.33-5.43)
[2020-02-16] MEDS: FOLIC ACID 1 MG TABLET PO SCH (08:06)
[2020-02-16] MEDS: NICOTINE 21 MG/PAT TD SCH (08:06)
[2020-02-16] MEDS: PANTOPRAZOLE 40MG TABLET PO SCH ×2 (08:06→16:38)
[2020-02-16] MEDS: ASPIRIN EC 81 MG TAB PO SCH (08:06)
[2020-02-16] MEDS: THIAMINE HCL 100 MG TABLET PO SCH (08:06)
[2020-02-16] MEDS: CLOPIDOGREL 75 MG TABLET PO SCH (08:06)
[2020-02-16] MEDS: HYDRALAZINE HCL 20 MG/ML VIAL IV PRN ×2 (08:11→21:32)
--- NOTE | 2020-02-16 13:05 | P.PN ---
Subjective Date of Service: 02/16/20 Chief Complaint: Right eye blurred vision, now resolved. Subjective: Working w/ PT Physical Examination - Vital Signs Temperature: 98.1 F Blood Pressure: 157/76 Pulse: 61 Respirations: 16 Pulse Ox (%): 99 - Physical Exam General: Alert, In no apparent distress HEENT: Atraumatic, PERRLA, EOMI Neck: Supple, JVD not distended Respiratory: Clear to auscultation bilaterally, Normal air movement Cardiovascular: Regular rate/rhythm, Normal S1 S2 Gastrointestinal: Normal bowel sounds, No tenderness Musculoskeletal: No tenderness Integumentary: No rashes Neurological: Normal speech, Normal strength at 5/5 x4 extr, Abnormal gait (at baseline) Lymphatics: No axilla or inguinal lymphadenopathy Assessment & Plan Physician Review: Patient Assessed, Agree with Above Assessment and Plan Physician Review Additional Text: 1. Acute cerebrovascular accident of right basal ganglia.-on stroke guidelines , aspirin and statin. Carotid artery ultrasound also shows some 65% to 75% stenosis in the left internal carotid artery. MRA head and neck with 60% stenosis. Neurologist on consult. 2. Essential hypertension-continue permissive hypertension pending neuro clearance. - IV hydralazine if needed 3. Nicotine dependence with cigarette smoking- Counseled. 4. Blurry vision, possibly due to cerebrovascular accident. 5. Deep vein thrombosis prophylaxis with Lovenox plan. 6. Mixed hyperlipidemia- lipid panel. Dispo- pending clearance by neuro.
[2020-02-16] MEDS: ATORVASTATIN 40 MG TAB PO SCH (21:32)
[2020-02-16] MEDS: FINASTERIDE 5 MG TAB PO SCH (21:32)
[2020-02-17] MEDS: HEPARIN 5000 UNIT/ML 1 ML VIAL SQ SCH ×2 (01:15→09:33)
[2020-02-17 03:21] VITALS: O2SAT 97
[2020-02-17 06:21] LABS: Basophils % 1.3 % (0-1.3); Lymphocytes % 26.9 % (15.3-44.8); MPV 9.5 fL (7.6-11.3)
[2020-02-17] MEDS: NICOTINE 21 MG/PAT TD SCH (09:32)
[2020-02-17] MEDS: CLOPIDOGREL 75 MG TABLET PO SCH (09:34)
[2020-02-17] MEDS: THIAMINE HCL 100 MG TABLET PO SCH (09:34)
[2020-02-17] MEDS: PANTOPRAZOLE 40MG TABLET PO SCH (09:34)
[2020-02-17] MEDS: FOLIC ACID 1 MG TABLET PO SCH (09:34)
[2020-02-17] MEDS: ASPIRIN EC 81 MG TAB PO SCH (09:39)
--- NOTE | 2020-02-17 12:48 | P.DS ---
Admission Date: 02/15/20 Discharge Date: 02/18/20 Disposition: DC HOME/HOME HEALTH CARE Discharge Condition: GOOD Reason for Admission: Right eye blurred vision, now resolved. Consultations: Dr. Gamino; Neurologist - Problems (1) CVA (cerebral vascular accident) Status: Acute (2) HTN (hypertension) Status: Acute (3) Tobacco abuse Status: Acute (4) Carotid artery stenosis with cerebral infarction Status: Acute Hospital Course: Mr. Baxter is 74-year-old with past medical history of hypertension, hyperlipidemia, the recent history of fall with facial trauma 1 month ago; presented with 1 day h/o blurred vision in the right eye. Patient denied any headache nor fever. On presentation in the ER he was noted with dysconjugate gaze of the right eye. Head CT shows evidence of subacute infarcts in the basal ganglia bleed which did not explain the right eye dysconjugate gaze. He was accepted by the [facility] and was considered for transfer but remained ED for over 6 hr. His blood pressure was uncontrolled on presentation with systolic of 210 over 100s. Further evaluation with MRI brain showed 14 millimeter tissue right basal ganglia infarct. MRA head and neck shows evidence of left internal carotid artery stenosis measured at 60%. This was also consistent with carotid Doppler findings. He was initiated on secondary prevention of stroke including antiplatelets and statin. Smoking and alcohol cessation has been strongly advised. Patient was followed by neurologist during his hospitalization. He was evaluated by PT and OT, recommended from home physical therapy. Patient follows up at the [facility] and will prefer to have further studies and treatment with his primary care providers at the [facility]. Right eye blurry vision resolved completely prior to discharge. He remained hemodynamically stable for discharge. Vital Signs/Physical Exam: Temp Pulse Resp BP Pulse Ox 98.4 F 66 16 160/77 H 97 02/17/20 08:00 02/17/20 08:00 02/17/20 08:00 02/17/20 08:00 02/17/20 08:00 General: Alert, In no apparent distress HEENT: Atraumatic, PERRLA, EOMI Neck: Supple, JVD not distended Respiratory: Clear to auscultation bilaterally, Normal air movement Cardiovascular: Regular rate/rhythm, Normal S1 S2 Gastrointestinal: Normal bowel sounds, No tenderness Musculoskeletal: No tenderness Integumentary: No rashes Neurological: Normal speech, Normal tone, Normal affect Lymphatics: No axilla or inguinal lymphadenopathy Laboratory Data at Discharge: WBC 11.2 K/uL (4.3-10.9) H 02/17/20 05:23 Hgb 13.6 g/dL (13.6-17.9) 02/17/20 05:23 Hct 40.0 % (39.6-49.0) 02/17/20 05:23 Plt Count 209 K/uL (152-406) 02/17/20 05:23 PT 12.7 SECONDS (9.5-12.5) H 02/14/20 16:03 INR 1.08 02/14/20 16:03 APTT 31.1 SECONDS (24.3-36.9) 02/14/20 16:03 Sodium 143 mmol/L (136-145) 02/14/20 16:03 Potassium 3.6 mmol/L (3.5-5.1) 02/14/20 16:03 BUN 20 mg/dL (7-18) H 02/14/20 16:03 Creatinine 0.77 mg/dL (0.55-1.3) 02/14/20 16:03 Glucose 102 mg/dL (74-106) 02/14/20 16:03 Magnesium 2.0 mg/dL (1.8-2.4) 02/17/20 01:16 Triglycerides 180 mg/dL (<150) H 02/15/20 09:41 Cholesterol 151 mg/dL (<200) 02/15/20 09:41 HDL Cholesterol 32 mg/dL (40-60) L 02/15/20 09:41 Cholesterol/HDL Ratio 4.72 02/15/20 09:41 Imagings Data: IMPRESSION: Significantly diminished size of the far peripheral branches of the right posterior cerebral artery. MRI imaging shows no acute infarction in the distribution of this vascular distribution. There is a questionable subacute or chronic area of ischemic injury in the right occipital lobe. Right M1 MCA vessel, likely site of perforating branches at the area of acute infarction, shows no significant degree of atherosclerotic change. Mild to moderate atherosclerotic changes in the far peripheral bilateral MCA branches. No aneurysm or vascular malformation. IMPRESSION: Approximately 60% stenosis at the left carotid bulb ICA junction. No other significant atherosclerotic changes seen. No abnormality on this examination as an embolic source for the right basal ganglia CVA. Home Medications: Aspirin [Aspirin EC 81 MG] 81 mg PO DAILY #30 tablet. 02/17/20 Atorvastatin Calcium [Lipitor] 40 mg PO BEDTIME #90 tab 02/17/20 Clopidogrel Bisulfate [Plavix*] 75 mg PO DAILY #90 tablet 02/17/20 Finasteride [Proscar*] 5 mg PO BEDTIME tab 02/17/20 Losartan Potassium [Cozaar*] 100 mg PO DAILY #60 tablet 02/17/20 NIFEdipine [Nifedipine ER] 60 mg PO BEDTIME #60 tab.er.24 02/17/20 Omeprazole 20 mg PO DAILY #90 capsule. 02/17/20 Thiamine HCl [Vitamin B-1*] 100 mg PO DAILY #90 tablet 02/17/20 New Medications: Aspirin [Aspirin EC 81 MG] 81 mg PO DAILY #30 tablet. Atorvastatin Calcium [Lipitor] 40 mg PO BEDTIME #90 tab Clopidogrel Bisulfate [Plavix*] 75 mg PO DAILY #90 tablet Losartan Potassium [Cozaar*] 100 mg PO DAILY #60 tablet NIFEdipine [Nifedipine ER] 60 mg PO BEDTIME #60 tab.er.24 Omeprazole 20 mg PO DAILY #90 capsule. Thiamine HCl [Vitamin B-1*] 100 mg PO DAILY #90 tablet Patient [facility] Inst[facility]. Diet: AHA Activity: Ad abhishek Followup: Jim Gamino MD [ASSOCIATE-ACTIVE - CAN ADMIT] - 1-2 Weeks (neurologist- call for an appointment )
[2020-02-17 12:49] VITALS: BP 188/77; TEMP 98.2
[2020-02-17] MEDS: NS KCL 20MEQ 20 MEQ/1,000 ML BAG IV SCH (14:00)
== END 2020-02-17 15:40 | disposition home health service (06) | DRG 66 ==
LOC: ER 15:25 → ERHOLD 02-15 01:36 → 4TH 02-15 02:51
PROVIDERS: ADMIT Internal Medicine; ATTEND Hospitalist
DX: I63.9 Cerebral infarction, unspecified (principal); I10 Essential (primary) hypertension; F17.210 Nicotine dependence, cigarettes, uncomplicated; E78.2 Mixed hyperlipidemia; R29.701 NIHSS score 1; Z86.73 Personal history of transient ischemic attack (TIA), and cerebral infarction without residual deficits; Z91.14 Patient's other noncompliance with medication regimen; Z91.81 History of falling; Z88.5 Allergy status to narcotic agent; Z88.0 Allergy status to penicillin; Z79.899 Other long term (current) drug therapy; Z79.82 Long term (current) use of aspirin; Z79.02 Long term (current) use of antithrombotics/antiplatelets
CPT/HCPCS: 36415; 70450; 70544; 70548; 70553; 71045; 80048; 80061; 82947; 83735; 84443; 85025; 85610; 85730; 92523; 93005; 93306; 93880; 96365; 96366; 97112; 97116; 97161; 97530; 99285; A9577; J0360; J1644

== ENCOUNTER 2020-05-03 14:59 | Emergency (ER) | payer OTHER ==
[2020-05-03 16:53] LABS: Protime INR 1.07
--- NOTE | 2020-05-03 17:04 | RAD REPORT ---
EXAM DESCRIPTION: CT - Head Brain Wo Cont - 05/03/2020 4:55 pm CLINICAL HISTORY: MENTAL STATUS CHANGE COMPARISON: Head Brain Wo Cont dated 02/14/2020 TECHNIQUE: Axial 5 mm thick images of the head were obtained without IV contrast. All CT scans are performed using dose optimization technique as appropriate and may include automated exposure control or mA/KV adjustment according to patient size. FINDINGS: No intracranial hemorrhage, mass, edema or shift of mid-line structures. No acute infarcti on changes seen. No cortical edema or sulcal effacement. Moderate severity atrophy changes are presen t. Ventricles are in proportion. Chronic ischemic changes are present in the cerebral white matter. S everal areas of punctate infarction are present. Mastoid air cells are clear. Patient has extensive paranasal sinus disease with soft tissue extending into the left nasal passage. This may simply be polyposis. A more aggressive paranasal sinus mass ca nnot be excluded. The pattern has not changed from prior imaging. No acute bony findings. IMPRESSION: No acute intracranial finding identified. Prominent atrophy, prominent chronic ischemic change and multiple old lacune or infarction seen. Extensive paranasal sinus disease including mass extending into the left nasal passage. This is stabl e from comparison. This may simply be polyposis. More aggressive sinus mass cannot be excluded.
[2020-05-03 17:10] LABS: Absolute Lymphocytes (CBC) 2.4 K/uL (0.7-4.9); Basophils % 2.2 % (0-1.3); Hematocrit 46.4 % (39.6-49.0); Lymphocytes % 23.6 % (15.3-44.8); MPV 9.2 fL (7.6-11.3); RBC Red Blood Cell Count 5.02 M/uL (4.33-5.43)
[2020-05-03 17:18] LABS: ALT/SGPT 22 U/L (12-78); AST/SGOT 19 U/L (15-37); Albumin 3.6 g/dL (3.4-5.0); Alkaline Phosphatase 97 U/L (45-117); BUN Blood Urea Nitrogen 19 mg/dL (7-18); Bicarbonate 33 mmol/L (21-32); Bilirubin Direct 0.1 mg/dL (0-0.2); Bilirubin Total 0.5 mg/dL (0.2-1.0); Glucose Level 121 mg/dL (74-106); Magnesium 2.3 mg/dL (1.8-2.4); NT PRO-BNP 755 pg/mL (<125); Potassium 3.4 mmol/L (3.5-5.1); Protein, Total 7.4 g/dL (6.4-8.2); Sodium Level 144 mmol/L (136-145); Troponin (Emerg Dept Use Only) < 0.02 ng/mL (0.0-0.045)
--- NOTE | 2020-05-03 17:24 | RAD REPORT ---
EXAM DESCRIPTION: RAD - Chest Single View - 05/03/2020 5:02 pm CLINICAL HISTORY: hypertension COMPARISON: AP chest January 2020 TECHNIQUE: AP portable chest image was obtained 05/03/2020 5:02 pm . FINDINGS: No focal lung parenchymal process. Interstitial pattern matches comparison. Heart size is prominent but slightly decreased from comparison. Vasculature is slightly less pronounced. No measura ble pleural effusion and no pneumothorax. No acute bony abnormality seen. No acute aortic findings fan spected. IMPRESSION: No acute cardiopulmonary process. No suspicious change from comparison.
[2020-05-03] MEDS ORDERED: cloNIDine HCL 0.1 MG TAB ONE (17:52)
[2020-05-03] MEDS ORDERED: HYDRALAZINE HCL 20 MG/ML VIAL ONE (18:59)
--- NOTE | 2020-05-03 20:25 | EDPHYS ---
Physician Documentation [facility] Name: Miguel Baxter Age: 74 yrs Sex: Male : 1945 Arrival Date: 05/03/2020 Time: 15:05 Bed 16 Private MD: ED Physician Andrew Jang HPI: 05/03 16:33 This 74 yrs old Male presents to ER via Wheelchair with complaints of High pm1 Blood Pressure. 16:33 The patient has elevated blood pressure and discovered this at home, with a home pm1 device. Onset: The symptoms/episode began/occurred this morning. Associated signs and symptoms: Pertinent negatives: chest pain, dizziness, headache, nausea, visual changes, vomiting, weakness. Severity of symptoms: in the emergency department the blood pressure is improved, mildly. The patient has experienced similar episodes in the past, chronically, history of poorly controlled blood pressure. Historical: - Allergies: 15:30 Iodine; tw2 15:30 PENICILLINS; tw2 - Home Meds: 15:30 thiamine HCl (vitamin B1) 100 mg Oral tab daily [Active]; aspirin 81 mg Oral chew 1 tab tw2 once daily [Active]; atorvastatin 20 mg Oral tab 1 tab once daily [Active]; etodolac 400 mg Oral tab 1 tab 2 times per day [Active]; finasteride 5 mg Oral tab 1 tab once daily [Active]; lisinopril 20 mg Oral tab 1 tab once daily [Active]; Nifediac CC 60 mg bedtime Oral [Active]; omeprazole 20 mg Oral cpDR 1 cap once daily [Active]; sertraline 100 mg Oral tab 1 tab once daily [Active]; sildenafil 100 mg 1/2 tab PO prior to intercourse take 60 mins before for erectile dysfunction Oral [Active]; - PMHx: 15:30 High Cholesterol; Hypertension; tw2 - Immunization history:: Adult Immunizations. - Social history:: Smoking status: Patient reports the use of cigarette tobacco products, smokes one pack cigarettes per day. Patient/guardian denies using alcohol, the patient reports quitting approximately .8 years ago. ROS: 16:33 Constitutional: Negative for fever, chills, and weight loss, Eyes: Negative for injury, pm1 pain, redness, and discharge, ENT: Negative for injury, pain, and discharge, Neck: Negative for injury, pain, and swelling, Cardiovascular: Negative for chest pain, palpitations, and edema, Respiratory: Negative for shortness of breath, cough, wheezing, and pleuritic chest pain, Abdomen/GI: Negative for abdominal pain, nausea, vomiting, diarrhea, and constipation, Back: Negative for injury and pain, : Negative for injury, bleeding, discharge, and swelling, MS/Extremity: Negative for injury and deformity, Skin: Negative for injury, rash, and discoloration, Neuro: Negative for headache, weakness, numbness, tingling, and seizure. Exam: 16:33 Constitutional: This is a well developed, well nourished patient who is awake, alert, pm1 and in no acute distress. Head/Face: Normocephalic, atraumatic. Chest/axilla: Normal chest wall appearance and motion. Nontender with no deformity. No lesions are appreciated. 16:33 Back: No spinal tenderness. No costovertebral tenderness. Full range of motion. 16:33 Skin: Warm, dry with normal turgor. Normal color with no rashes, no lesions, and no evidence of cellulitis. MS/ Extremity: Pulses equal, no cyanosis. Neurovascular intact. Full, normal range of motion. 16:33 Cardiovascular: Exam negative for acute changes, Rate: normal, Rhythm: regular, Pulses: no pulse deficits are appreciated. 16:33 Respiratory: Exam negative for acute changes, respiratory distress, shortness of breath. 16:33 Abdomen/GI: Inspection: abdomen appears normal, Palpation: abdomen is soft and non-tender, in all quadrants, mass, is not appreciated, rebound tenderness, is not appreciated. 16:33 Neuro: Exam negative for acute changes, Orientation: is normal, Mentation: is normal, Cranial nerves: CN II- XII are normal as tested, Cerebellar function: normal finger to nose testing, heel to carlson testing is normal, Motor: is normal, moves all fours, Sensation: is normal, no obvious gross deficits. Vital Signs: 15:25 BP 180 / 84; Pulse 55; Resp 17; Temp 98.5(TE); Pulse Ox 97% on R/A; Weight 63.5 kg (R); tw2 Height 5 ft. 9 in. (175.26 cm); Pain 0/10; 15:55 BP 184 / 88; Pulse 55; Resp 18; Pulse Ox 94% on R/A; dh4 17:15 BP 203 / 103; Pulse 53; Resp 18; Pulse Ox 95% ; ah 17:40 BP 208 / 92; Pulse 54; Resp 16; Pulse Ox 95% ; ah 18:00 BP 216 / 104; Pulse 52; Resp 16; Pulse Ox 96% ; ah 19:00 BP 182 / 99; Pulse 53; Resp 18; Pulse Ox 96% ; ah 19:30 BP 118 / 76; Pulse 49; Resp 18; Pulse Ox 96% ; ah 20:00 BP 138 / 73; Pulse 50; Resp 17; Pulse Ox 95% ; ah 15:25 Body Mass Index 20.67 (63.50 kg, 175.26 cm) tw2 MDM: 16:02 Patient medically screened. pm1 20:08 Data reviewed: vital signs. Data interpreted: Pulse oximetry: on room air is 96 %. pm1 Interpretation: normal. 20:24 Counseling: I had a detailed discussion with the patient and/or guardian regarding: the pm1 historical points, exam findings, and any diagnostic results supporting the discharge/admit diagnosis, lab results, radiology results, the need for outpatient follow up, to return to the emergency department if symptoms worsen or persist or if there are any questions or concerns that arise at home. 05/03 16:16 Order name: Basic Metabolic Panel; Complete Time: 17:27 pm1 05/03 16:16 Order name: CBC with Diff; Complete Time: 17:14 pm1 05/03 16:16 Order name: LFT's; Complete Time: 17:27 pm1 05/03 16:16 Order name: Magnesium; Complete Time: 17:27 pm05/03 16:16 Order name: NT PRO-BNP; Complete Time: 17:27 pm05/03 16:16 Order name: PT-INR; Complete Time: 17:05 pm05/03 16:16 Order name: Troponin (emerg Dept Use Only); Complete Time: 17:27 pm1 05/03 16:16 Order name: XRAY Chest (1 view); Complete Time: 17:27 pm1 05/03 16:16 Order name: EKG; Complete Time: 16:17 pm1 05/03 16:16 Order name: Cardiac monitoring; Complete Time: 17:11 pm05/03 16:16 Order name: EKG - Nurse/Tech; Complete Time: 21:08 pm1 05/03 16:16 Order name: CT Head Brain wo Cont; Complete Time: 17:14 pm1 05/03 16:16 Order name: IV Saline Lock; Complete Time: 16:56 pm1 05/03 16:16 Order name: Labs collected and sent; Complete Time: 16:55 pm1 05/03 16:16 Order name: O2 Per Protocol; Complete Time: 16:55 pm1 05/03 16:16 Order name: O2 Sat Monitoring; Complete Time: 16:56 pm1 Administered Medications: 17:50 Drug: cloNIDine 0.2 mg Route: PO; 19:48 Follow up: Response: No adverse reaction 21:28 Follow up: Response: No adverse reaction 19:00 Drug: hydrALAZINE 10 mg Route: IV; Rate: calculated rate; Site: left antecubital; 21:28 Follow up: Response: No adverse reaction; IV Status: Completed infusion 21:32 Follow up: Response: No adverse reaction; IV Status: Completed infusion Disposition: 05/04 13:18 Co-signature as Attending Physician, Andrew Jang MD I agree with the assessment and kdr plan of care. Disposition: 05/03/20 20:25 Discharged to Home. Impression: Essential (primary) hypertension. - Condition is Stable. - Discharge Instructions: Hypertension, How to Take Your Blood Pressure, [id number], DASH Eating Plan, Managing Your Hypertension. - Medication Reconciliation Form, Thank You Letter, Antibiotic Education, Prescription Opioid Use form. - Follow up: Emergency Department; When: As needed; Reason: Worsening of condition. Follow up: Private Physician; When: 2 - 3 days; Reason: Recheck today's complaints, Continuance of care, Re-evaluation by your physician. - Problem is new. - Symptoms have improved. Signatures: Dispatcher [employer] EDMS Andrew Jang MD MD kdr Marinas, Patrick, NP OTOLOGIST pm1 Ce Mathis RN RN 2 Chuyita Deluca RN RN Corrections: (The following items were deleted from the chart) 05/03 21:08 16:16 Urine Dipstick-Ancillary ordered. pm1 21:10 20:25 05/03/2020 20:25 Discharged to Home. Impression: Essential (primary) ah hypertension. Condition is Stable. Forms are Medication Reconciliation Form, Thank You Letter, Antibiotic Education, Prescription Opioid Use. Follow up: Emergency Department; When: As needed; Reason: Worsening of condition. Follow up: Private Physician; When: 2 - 3 days; Reason: Recheck today's complaints, Continuance of care, Re-evaluation by your physician. Problem is new. Symptoms have improved. pm1
--- NOTE | 2020-05-03 20:25 | ER ---
Nurse's Notes [facility] Name: Miguel Baxter Age: 74 yrs Sex: Male : 1945 Arrival Date: 05/03/2020 Time: 15:05 Bed 16 Private MD: Diagnosis: Essential (primary) hypertension Presentation: 05/03 15:25 Chief complaint: Patient states: [facility], it has tw2 been high a while it stays high and today they say it got up over 200, they last reading was 215/95 at the ID, daughter states "they gave him his regular bp medicine but it didn't help". Coronavirus screen: Patient denies a cough. Patient denies shortness of breath or difficulty breathing. Patient denies measured and/or subjective temperature greater than 100.4F prior to today's visit. Patient denies travel on a cruise ship or to a country the [facility] currently lists as an affected area. Patient denies contact with known and/or suspected case of COVID-19. Ebola Screen: Patient denies travel to an Ebola-affected area in the 21 days before illness onset. Initial Sepsis Screen: Does the patient meet any 2 criteria? No. Patient's initial sepsis screen is negative. Does the patient have a suspected source of infection? No. Patient's initial sepsis screen is negative. Risk Assessment: Do you want to hurt yourself or someone else? Patient reports no desire to harm self or others. Onset of symptoms was May 03, 2020. 15:25 Method Of Arrival: Wheelchair tw2 15:25 Acuity: JANAY 3 tw2 Triage Assessment: 15:29 General: Appears in no apparent distress. slender, well groomed, Behavior is calm, tw2 cooperative, appropriate for age. Pain: Denies pain. Historical: - Allergies: 15:30 Iodine; tw2 15:30 PENICILLINS; tw2 - Home Meds: 15:30 thiamine HCl (vitamin B1) 100 mg Oral tab daily [Active]; aspirin 81 mg Oral chew 1 tab tw2 once daily [Active]; atorvastatin 20 mg Oral tab 1 tab once daily [Active]; etodolac 400 mg Oral tab 1 tab 2 times per day [Active]; finasteride 5 mg Oral tab 1 tab once daily [Active]; lisinopril 20 mg Oral tab 1 tab once daily [Active]; Nifediac CC 60 mg bedtime Oral [Active]; omeprazole 20 mg Oral cpDR 1 cap once daily [Active]; sertraline 100 mg Oral tab 1 tab once daily [Active]; sildenafil 100 mg 1/2 tab PO prior to intercourse take 60 mins before for erectile dysfunction Oral [Active]; - PMHx: 15:30 High Cholesterol; Hypertension; tw2 - Immunization history:: Adult Immunizations. - Social history:: Smoking status: Patient reports the use of cigarette tobacco products, smokes one pack cigarettes per day. Patient/guardian denies using alcohol, the patient reports quitting approximately .8 years ago. Screenin:02 Abuse screen: Denies threats or abuse. Nutritional screening: No deficits noted. ah Tuberculosis screening: No symptoms or risk factors identified. Fall Risk None identified. Assessment: 16:00 General: Appears in no apparent distress. Behavior is calm, cooperative, appropriate ah for age. Pain: Denies pain. Neuro: Level of Consciousness is awake, alert, obeys commands. Cardiovascular: Denies chest pain, palpitations, Capillary refill < 3 seconds Patient's skin is warm and dry. Cardiovascular: Rhythm is sinus bradycardia. Respiratory: Airway is patent Respiratory effort is even, unlabored, Respiratory pattern is regular, symmetrical. Derm: Skin is intact, is healthy with good turgor. 17:00 Reassessment: Patient and/or family updated on plan of care and expected duration. Pain ah level reassessed. Patient is alert, oriented x 3, equal unlabored respirations, skin warm/dry/pink. Patient denies pain at this time. 18:03 Reassessment: Patient and/or family updated on plan of care and expected duration. Pain ah level reassessed. Patient is alert, oriented x 3, equal unlabored respirations, skin warm/dry/pink. Pt given clonidine, informed pt that it will take a bit for the pressure to come down and we will continue to monitor his BP at this time. 20:25 Reassessment: Patient and/or family updated on plan of care and expected duration. Pain ah level reassessed. Patient is alert, oriented x 3, equal unlabored respirations, skin warm/dry/pink. Awaiting on discharge papers. Pt is feeling better at this time. 20:50 Reassessment: Pt and son given discharge instructions and taken to POV via WC. Pt ah tolerated well. Vital Signs: 15:25 BP 180 / 84; Pulse 55; Resp 17; Temp 98.5(TE); Pulse Ox 97% on R/A; Weight 63.5 kg (R); tw2 Height 5 ft. 9 in. (175.26 cm); Pain 0/10; 15:55 BP 184 / 88; Pulse 55; Resp 18; Pulse Ox 94% on R/A; dh4 17:15 BP 203 / 103; Pulse 53; Resp 18; Pulse Ox 95% ; ah 17:40 BP 208 / 92; Pulse 54; Resp 16; Pulse Ox 95% ; ah 18:00 BP 216 / 104; Pulse 52; Resp 16; Pulse Ox 96% ; ah 19:00 BP 182 / 99; Pulse 53; Resp 18; Pulse Ox 96% ; ah 19:30 BP 118 / 76; Pulse 49; Resp 18; Pulse Ox 96% ; ah 20:00 BP 138 / 73; Pulse 50; Resp 17; Pulse Ox 95% ; ah 15:25 Body Mass Index 20.67 (63.50 kg, 175.26 cm) tw2 ED Course: 15:05 Patient arrived in ED. mr 15:29 Triage completed. tw2 15:29 Arm band placed on. tw2 16:02 Jamal Samayoa NP is PHCP. pm1 16:02 Andrew Jang MD is Attending Physician. pm1 16:30 Inserted saline lock: 20 gauge in left antecubital area, using aseptic technique. ah 16:55 Chuyita Deluca, RN is Primary Nurse. 16:55 CT Head Brain wo Cont In Process Unspecified. EDMS 17:01 XRAY Chest (1 view) In Process Unspecified. EDMS 18:03 Patient has correct armband on for positive identification. Bed in low position. Call light in reach. Side rails up X2. Adult w/ patient. pilot control operator on. Pulse ox on. NIBP on. 20:45 No provider procedures requiring assistance completed. IV discontinued, intact, bleeding controlled, No redness/swelling at site. Pressure dressing applied. Administered Medications: 17:50 Drug: cloNIDine 0.2 mg Route: PO; 19:48 Follow up: Response: No adverse reaction 21:28 Follow up: Response: No adverse reaction 19:00 Drug: hydrALAZINE 10 mg Route: IV; Rate: calculated rate; Site: left antecubital; 21:28 Follow up: Response: No adverse reaction; IV Status: Completed infusion 21:32 Follow up: Response: No adverse reaction; IV Status: Completed infusion Outcome: 20:25 Discharge ordered by . pm1 20:45 Discharged to home via wheelchair. 20:45 Condition: good 20:45 Discharge instructions given to patient, Instructed on discharge instructions, follow up and referral plans. Demonstrated understanding of instructions, follow-up care. 21:10 Patient left the ED. Signatures: Dispatcher [employer] EDMS SeunChioma DanitaJamal NP INFLATED PAD BUFFER pm1 Ce Mathis RN RN 2 Chuyita Deluca RN RN Héctor Morales [facility]
[2020-05-03 21:16] VITALS: TEMP 98.5
[2020-05-03 21:25] VITALS: BP 138/73; O2SAT 95
--- NOTE | 2020-05-04 06:54 | EKG ---
Test Date: 2020-05-03 Test Time: 20:39:53 Director Of Claims: DORETHA MEASUREMENT RESULTS: Intervals: Rate: 51 WI: 252 QRSD: 100 QT: 518 QTc: 477 [place]: P: 76 WI: 252 QRS: -56 T: 47 INTERPRETIVE STATEMENTS: Sinus bradycardia with 1st degree AV block Left anterior fascicular block Inferior infarct, age undetermined Cannot rule out Anteroseptal infarct, age undetermined Abnormal ECG Compared to ECG 02/14/2020 15:53:40 Left ventricular hypertrophy no longer present Myocardial infarct finding still present Electronically Signed On 05-04-20 06:53:14 CDT by Tobi Vela
== END 2020-05-03 21:10 | disposition home or self-care (01) ==
LOC: ER 14:59
DX: I10 Essential (primary) hypertension (principal); E78.00 Pure hypercholesterolemia, unspecified; F17.210 Nicotine dependence, cigarettes, uncomplicated; Z79.82 Long term (current) use of aspirin; Z88.0 Allergy status to penicillin; Z91.048 Other nonmedicinal substance allergy status
CPT/HCPCS: 96365; 93005; 85025; 80048; 36415; 83735; 85610; 80076; 84484; 83880; 70450; 71045; 99284; 96366; J0360

== ENCOUNTER 2020-09-08 10:09 | Observation (INO) | payer OTHER ==
--- NOTE | 2020-09-08 10:40 | RAD REPORT ---
EXAM DESCRIPTION: CT - Ct Stroke Brain Wo Cont - 09/08/2020 10:32 am CLINICAL HISTORY: WEAKNESS Headache, drowsiness, CVA symptomology COMPARISON: Head Brain Wo Cont dated 05/03/2020; Head Brain Wo Cont dated 02/14/2020 TECHNIQUE: All CT scans are performed using dose optimization technique as appropriate and may inclu de automated exposure control or mA/KV adjustment according to patient size. 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 Significant opacification of the paranasal sinuses on the left, chronic in appearance. This has the a ppearance of possible allergic fungal sinusitis. The calvarium is intact. IMPRESSION: No acute intracranial abnormality. The findings were discussed with Dr. Jang in the ER On 09/08/2020 at 10:35 a.m. by telephone.
[2020-09-08 10:45] LABS: Absolute Lymphocytes (CBC) 3.7 K/uL (0.7-4.9); Basophils % 0.8 % (0-1.3); Hematocrit 42.1 % (39.6-49.0); Lymphocytes % 30.5 % (15.3-44.8); MPV 9.6 fL (7.6-11.3); RBC Red Blood Cell Count 4.58 M/uL (4.33-5.43)
[2020-09-08 10:46] LABS: Protime INR 0.97
[2020-09-08 10:50] LABS: BUN Blood Urea Nitrogen 18 mg/dL (7-18); Bicarbonate 30 mmol/L (21-32); Glucose Level 100 mg/dL (74-106); Potassium 3.1 mmol/L (3.5-5.1); Sodium Level 143 mmol/L (136-145)
--- NOTE | 2020-09-08 11:01 | RAD REPORT ---
EXAM DESCRIPTION: RAD - Chest Single View - 09/08/2020 10:50 am CLINICAL HISTORY: PAIN Chest pain. COMPARISON: Chest Single View dated 05/03/2020; Chest Single View dated 02/14/2020; Chest Single View d ated 01/15/2020 FINDINGS: Portable technique limits examination quality. The lungs are grossly clear. The heart is mildly prominent with a tortuous thoracic aorta. No displac ed fractures.Small hiatal hernia. IMPRESSION: No acute intrathoracic process suspected.
--- NOTE | 2020-09-08 11:55 | RAD REPORT ---
EXAM DESCRIPTION: MRI - Brain Wo Cont - 09/08/2020 11:31 am CLINICAL HISTORY: bilateal rightward eye deviation Headache, drowsiness, CVA symptomology COMPARISON: Ct Stroke Brain Wo Cont dated 09/08/2020 TECHNIQUE: Multi-sequence, multiplanar MR imaging of the brain was performed without contrast. FINDINGS: No intracranial hemorrhage, hydrocephalus or extra-axial fluid collections.Areas of prior infarct are noted bilaterally. No edema or shift of midline structures. No findings to suspect brain mass. DWI is negative for acute CVA. Midline structures are normally formed. Extensive paranasal sinus disease is present. IMPRESSION: Negative for acute CVA or other acute intracranial abnormality.
[2020-09-08] MEDS ORDERED: POTASSIUM CL SA 10 MEQ TAB PO ONE ×2 (12:02→12:03)
--- NOTE | 2020-09-08 14:28 | ER ---
Nurse's Notes [facility] Name: Miguel Baxter Age: 75 yrs Sex: Male : 1945 Arrival Date: 09/08/2020 Time: 10:12 Bed 6 Private MD: Diagnosis: Right lateral gaze deveiation Presentation: 09/08 10:14 Chief complaint: Not feeling quite right since midnight last night. Pt's family was ss concerned because they noticed this morning that he was leaning to the right when walking with his walker. Coronavirus screen: Client denies travel out of the [place] in the last 14 days. Ebola Screen: Patient denies exposure to infectious person. Patient denies travel to an Ebola-affected area in the 21 days before illness onset. Initial Sepsis Screen: Does the patient meet any 2 criteria? No. Patient's initial sepsis screen is negative. Does the patient have a suspected source of infection? No. Patient's initial sepsis screen is negative. Risk Assessment: Do you want to hurt yourself or someone else? Patient reports no desire to harm self or others. Onset of symptoms was September 08, 2020 at 00:00. Care prior to arrival: IV initiated. 18 GA, in the right antecubital area. 10:14 Method Of Arrival: EMS: [facility] ss 10:14 Acuity: JANAY 2 ss 10:25 An acute neurological deficit is present. The patient has been moved to a [facility] area. The patients blood glucose was checked before arriving to the hospital and was found to be normal. Stroke Activation: Symptom onset > 6 hours Physician: Stroke Attending; Name: ; Notified At: ; Arrived At: Physician: Chief Stroke Resident; Name: ; Notified At: ; Arrived At: Physician: Stroke Resident; Name: ; Notified At: ; Arrived At: Physician: ED Attending; Name: ; Notified At: ; Arrived At: Physician: ED Resident; Name: ; Notified At: ; Arrived At: Historical: - Allergies: 10:21 PENICILLINS; ss 10:21 Iodine; ss - Home Meds: 10:30 aspirin 81 mg Oral chew 1 tab once daily [Active]; atorvastatin 20 mg Oral tab 1 tab ph once daily [Active]; lisinopril 20 mg Oral tab 1 tab once daily [Active]; Nifediac CC 60 mg bedtime Oral [Active]; omeprazole 20 mg Oral cpDR 1 cap once daily [Active]; sertraline 100 mg Oral tab 1 tab once daily [Active]; thiamine HCl (vitamin B1) 100 mg Oral tab daily [Active]; - PMHx: 10:21 High Cholesterol; Hypertension; CHF; CVA; diabetes; ss - Immunization history:: Adult Immunizations unknown. - Social history:: Smoking status: Patient reports the use of cigarette tobacco products, 1.5 ppd. Screenin:24 Abuse screen: Denies threats or abuse. Denies injuries from another. Nutritional ss screening: No deficits noted. Tuberculosis screening: Never had TB. Fall Risk Fall in past 12 months (25 points). Secondary diagnosis (15 points) CVA, IV access (20 points). Ambulatory Aid- None/Bed Rest/Nurse Assist (0 pts). Gait- Normal/Bed Rest/Wheelchair (0 pts) Mental Status- Oriented to own ability (0 pts). Assessment: 10:25 General: Appears in no apparent distress. comfortable, Behavior is calm, cooperative, ph appropriate for age, Denies fever, feeling ill. Pain: Denies pain. Neuro: Level of Consciousness is awake, alert, obeys commands, Oriented to person, place, time, situation, [employer] Aide are equal bilaterally Moves all extremities. Gait is unsteady, Speech is normal, Facial symmetry appears normal, Pupils are gazing towards the right, Intact Reports weakness. Cardiovascular: Capillary refill < 3 seconds in bilateral fingers Patient's skin is warm and dry. Respiratory: Airway is patent Respiratory effort is even, unlabored, Respiratory pattern is regular, symmetrical. Derm: Skin is fragile, is thin, Skin is pink, warm \T\ dry. Musculoskeletal: Circulation, motion, and sensation intact. Range of motion: intact in all extremities. 10:25 VAN Scoring: Arm Drift: Patients demonstrates NO arm weakness. Patient is VAN Negative. ph 10:28 Reassessment: Patient appears in no apparent distress at this time. Patient is alert, ph oriented x 3, equal unlabored respirations, skin warm/dry/pink. Pt taken to CT via stretcher. 11:52 Patient has been NPO before screening. The patient is alert, and able to follow em commands. The patient does not exhibit slurred or garbled speech. The patient is not exhibiting difficulty speaking. The patient does not exhibit difficulty understanding words. The patient is able to swallow own secretions with no drooling or need for suction. Patient tolerated one teaspoon of water. No drooling, immediate coughing, gurgling, or clearing of the throat was noted. The patient passed the bedside swallow screening. Oral medications may be given as ordered. Contact Physician for further diet orders. Provider notified of bedside swallow screening results: Andrew Jang MD. 13:33 Reassessment: Patient appears in no apparent distress at this time. Patient and/or ph family updated on plan of care and expected duration. Pain level reassessed. Patient is alert, oriented x 3, equal unlabored respirations, skin warm/dry/pink. Dr Jang at bedside to speak w/ pt and family about possible transfer. 14:30 Reassessment: Patient appears in no apparent distress at this time. Patient and/or ph family updated on plan of care and expected duration. Pain level reassessed. Patient is alert, oriented x 3, equal unlabored respirations, skin warm/dry/pink. Gaze remains deviated to R, pt denies pain, awaiting room assignment. 15:30 Reassessment: Patient appears in no apparent distress at this time. Patient and/or ph family updated on plan of care and expected duration. Pain level reassessed. Patient is alert, oriented x 3, equal unlabored respirations, skin warm/dry/pink. 16:28 Reassessment: Pt taken to second floor via wheelchair. ph Vital Signs: 10:14 BP 173 / 79; Pulse 57; Resp 16; Temp 98.0(TE); Pulse Ox 97% on R/A; Weight 65.77 kg; ss Height 5 ft. 9 in. (175.26 cm); Pain 0/10; 12:47 BP 160 / 66; Pulse 54; Resp 18; Pulse Ox 100% on R/A; ph 13:34 BP 173 / 66; Pulse 56; Resp 16; Pulse Ox 98% on R/A; ph 15:00 BP 173 / 70; Pulse 52; Resp 16; Pulse Ox 100% ; ph 16:00 BP 163 / 64; Pulse 51; Resp 18; Temp 97.9; Pulse Ox 99% ; ph 10:14 Body Mass Index 21.41 (65.77 kg, 175.26 cm) ss NIH Stroke Scale Scores: 10:18 NIHSS Score: 2 kb 10:24 NIHSS Score: 2 ss 10:25 NIHSS Score: 2 ph 16:50 NIHSS Score: 2 [facility] ED Course: 10:12 Patient arrived in ED. kb 10:19 Triage completed. ss 10:21 Arm band placed on right wrist. ss 10:23 EKG done, by ED staff, reviewed by Noelle THOMPSON. dh3 10:24 Patient has correct armband on for positive identification. Bed in low position. Call ss light in reach. monitor car operator on. Pulse ox on. NIBP on. 10:25 Maintain EMS IV. Dressing intact. Good blood return noted. Site clean \T\ dry. Gauge \T\ ph site: 18G RAC. 10:27 Yanique Andrews RN is Primary Nurse. ph 10:31 Andrew Jang MD is Attending Physician. kdr 10:33 CT Stroke Brain w/o Contrast In Process Unspecified. EDMS 10:50 Stroke CXR 1 View In Process Unspecified. EDMS 11:20 MRI - Brain Wo Cont In Process Unspecified. EDMS 12:42 Transfer initiated to [facility] for stroke. mt 12:50 DR to report given to [facility] Stroke Team Physician. mt 14:14 Khadar Negro DO is Hospitalizing Provider. kdr 16:27 No provider procedures requiring assistance completed. Patient admitted, IV remains in ph place. Administered Medications: 11:50 Drug: Potassium Chloride 40 mEq Route: PO; em 13:34 Follow up: Response: No adverse reaction ph Outcome: 14:27 Decision to Hospitalize by Provider. kdr 16:28 Admitted to Tele accompanied by manan, family with patient, via wheelchair, room 211, with chart, Report called to Natalia EVERETT 16:28 Condition: stable 16:28 Instructed on the need for admit. 16:30 Patient left the ED. NIH Stroke Scale - NIH Stroke Score Date: 09/08/2020 Time: 10:18 Total Score = 2 1a. Level of Consciousness (LOC) - 0(Alert) 1b. Level of Consciousness (LOC) (Year \T\ Age) - 0(Both) 1c. LOC Commands (Open \T\ Closes Eyes/Tow Motor Driver) - 0(Both) 2. Best Gaze (Lateral Gaze Paresis) - 2(Forced deviation) 3. Visual Field Loss - 0(No visual loss) 4. Facial Palsy - 0(Normal) 5a. Left Arm: Motor (10-second hold) - 0(No drift) 5b. Right Arm: Motor (10-second hold) - 0(No drift) 6a. Left Leg: Motor (5-second hold - always test supine) - 0(No drift) 6b. Right Leg: Motor (5-second hold - always test supine) - 0(No drift) 7. Limb Ataxia (finger/nose \T\ heel/carlson - test with eyes open) - 0(Absent) 8. Sensory Loss (pinprick arms/legs/face) - 0(Normal) 9. Best Language: Aphasia (description/naming/reading) - 0(No aphasia) 10. Dysarthria (speech clarity - read or repeat words) - 0(Normal) 11. Extinction and Inattention (visual/tactile/auditory/spatial/personal) - 0(No abnormality) Initials: NIH Stroke Scale - NIH Stroke Score Date: 09/08/2020 Time: 10:24 Total Score = 2 1a. Level of Consciousness (LOC) - 0(Alert) 1b. Level of Consciousness (LOC) (Year \T\ Age) - 0(Both) 1c. LOC Commands (Open \T\ Closes Eyes/Tow Motor Driver) - 0(Both) 2. Best Gaze (Lateral Gaze Paresis) - 2(Forced deviation) 3. Visual Field Loss - 0(No visual loss) 4. Facial Palsy - 0(Normal) 5a. Left Arm: Motor (10-second hold) - 0(No drift) 5b. Right Arm: Motor (10-second hold) - 0(No drift) 6a. Left Leg: Motor (5-second hold - always test supine) - 0(No drift) 6b. Right Leg: Motor (5-second hold - always test supine) - 0(No drift) 7. Limb Ataxia (finger/nose \T\ heel/carlson - test with eyes open) - 0(Absent) 8. Sensory Loss (pinprick arms/legs/face) - 0(Normal) 9. Best Language: Aphasia (description/naming/reading) - 0(No aphasia) 10. Dysarthria (speech clarity - read or repeat words) - 0(Normal) 11. Extinction and Inattention (visual/tactile/auditory/spatial/personal) - 0(No abnormality) Initials: NIH Stroke Scale - NIH Stroke Score Date: 09/08/2020 Time: 10:25 Total Score = 2 1a. Level of Consciousness (LOC) - 0(Alert) 1b. Level of Consciousness (LOC) (Year \T\ Age) - 0(Both) 1c. LOC Commands (Open \T\ Closes Eyes/Tow Motor Driver) - 0(Both) 2. Best Gaze (Lateral Gaze Paresis) - 2(Forced deviation) 3. Visual Field Loss - 0(No visual loss) 4. Facial Palsy - 0(Normal) 5a. Left Arm: Motor (10-second hold) - 0(No drift) 5b. Right Arm: Motor (10-second hold) - 0(No drift) 6a. Left Leg: Motor (5-second hold - always test supine) - 0(No drift) 6b. Right Leg: Motor (5-second hold - always test supine) - 0(No drift) 7. Limb Ataxia (finger/nose \T\ heel/carlson - test with eyes open) - 0(Absent) 8. Sensory Loss (pinprick arms/legs/face) - 0(Normal) 9. Best Language: Aphasia (description/naming/reading) - 0(No aphasia) 10. Dysarthria (speech clarity - read or repeat words) - 0(Normal) 11. Extinction and Inattention (visual/tactile/auditory/spatial/personal) - 0(No abnormality) Initials: NIH Stroke Scale - NIH Stroke Score Date: 09/08/2020 Time: 16:50 Total Score = 2 1a. Level of Consciousness (LOC) - 0(Alert) 1b. Level of Consciousness (LOC) (Year \T\ Age) - 0(Both) 1c. LOC Commands (Open \T\ Closes Eyes/Tow Motor Driver) - 0(Both) 2. Best Gaze (Lateral Gaze Paresis) - 2(Forced deviation) 3. Visual Field Loss - 0(No visual loss) 4. Facial Palsy - 0(Normal) 5a. Left Arm: Motor (10-second hold) - 0(No drift) 5b. Right Arm: Motor (10-second hold) - 0(No drift) 6a. Left Leg: Motor (5-second hold - always test supine) - 0(No drift) 6b. Right Leg: Motor (5-second hold - always test supine) - 0(No drift) 7. Limb Ataxia (finger/nose \T\ heel/carlson - test with eyes open) - 0(Absent) 8. Sensory Loss (pinprick arms/legs/face) - 0(Normal) 9. Best Language: Aphasia (description/naming/reading) - 0(No aphasia) 10. Dysarthria (speech clarity - read or repeat words) - 0(Normal) 11. Extinction and Inattention (visual/tactile/auditory/spatial/personal) - 0(No abnormality) Initials: kdr Signatures: Dispatcher [employer] EDMS Noelle Rutledge, EDGE INKER-C EDGE INKER-Ckb Andrew Jang MD MD [facility] Gaudencio Estevez RN RN Mis Salgado RN RN ss Hall, Patricia, RN RN David, [facility] Domitila Almeida [facility], [facility]
--- NOTE | 2020-09-08 14:28 | EDPHYS ---
Physician Documentation [facility] Name: Miguel Baxter Age: 75 yrs Sex: Male : 1945 Arrival Date: 09/08/2020 Time: 10:12 Bed 6 Private MD: ED Physician Andrew Jang HPI: 09/08 10:17 This 75 yrs old Male presents to ER via Unassigned with complaints of kb weakness. 10:17 The patient's problem is reported as weakness, that is generalized. Onset: The kb symptoms/episode began/occurred this morning. 16:41 The patient has not recently seen a physician. kdr 16:50 Duration: The episode is continuous. Context: the episode(s) was witnessed, by family, kdr symptoms became apparent This morning, occurred at home, occurred while the patient was at rest, Possible contributing factors include: None. The symptoms are alleviated by nothing. The symptoms are aggravated by nothing. Associated signs and symptoms: Pertinent positives: Family reports that thry noyiced him leaning to the right last night at 2:00 AM. Historical: - Allergies: 10:21 PENICILLINS; ss 10:21 Iodine; ss - Home Meds: 10:30 aspirin 81 mg Oral chew 1 tab once daily [Active]; atorvastatin 20 mg Oral tab 1 tab ph once daily [Active]; lisinopril 20 mg Oral tab 1 tab once daily [Active]; Nifediac CC 60 mg bedtime Oral [Active]; omeprazole 20 mg Oral cpDR 1 cap once daily [Active]; sertraline 100 mg Oral tab 1 tab once daily [Active]; thiamine HCl (vitamin B1) 100 mg Oral tab daily [Active]; - PMHx: 10:21 High Cholesterol; Hypertension; CHF; CVA; diabetes; ss - Immunization history:: Adult Immunizations unknown. - Social history:: Smoking status: Patient reports the use of cigarette tobacco products, 1.5 ppd. ROS: 16:41 Constitutional: Negative for fever, chills, and weight loss, Eyes: Negative for injury, kdr pain, redness, and discharge, Neck: Negative for injury, pain, and swelling, Cardiovascular: Negative for chest pain, palpitations, and edema, Respiratory: Negative for shortness of breath, cough, wheezing, and pleuritic chest pain, Abdomen/GI: Negative for abdominal pain, nausea, vomiting, diarrhea, and constipation, Back: Negative for injury and pain, : Negative for injury, bleeding, discharge, and swelling, MS/Extremity: Negative for injury and deformity, Skin: Negative for injury, rash, and discoloration, Psych: Negative for depression, anxiety, suicide ideation, homicidal ideation, and hallucinations, Allergy/Immunology: Negative for hives, rash, and allergies, Endocrine: Negative for neck swelling, polydipsia, polyuria, polyphagia, and marked weight changes, Hematologic/Lymphatic: Negative for swollen nodes, abnormal bleeding, and unusual bruising. 16:41 Neuro: Positive for speech changes, weakness. Exam: 16:47 ECG was reviewed by the Attending Physician. kdr 16:50 Radiologist reports: Negative kdr 17:14 Constitutional: This is a well developed, well nourished patient who is awake, alert, kdr and in no acute distress. Head/Face: Normocephalic, atraumatic. Neck: Trachea midline, no thyromegaly or masses palpated, and no cervical lymphadenopathy. Supple, full range of motion without nuchal rigidity, or vertebral point tenderness. No Meningismus. Chest/axilla: Normal chest wall appearance and motion. Nontender with no deformity. No lesions are appreciated. Cardiovascular: Regular rate and rhythm with a normal S1 and S2. No gallops, murmurs, or rubs. Normal PMI, no JVD. No pulse deficits. Respiratory: Lungs have equal breath sounds bilaterally, clear to auscultation and percussion. No rales, rhonchi or wheezes noted. No increased work of breathing, no retractions or nasal flaring. Abdomen/GI: Soft, non-tender, with normal bowel sounds. No distension or tympany. No guarding or rebound. No evidence of tenderness throughout. Back: No spinal tenderness. No costovertebral tenderness. Full range of motion. Skin: Warm, dry with normal turgor. Normal color with no rashes, no lesions, and no evidence of cellulitis. MS/ Extremity: Pulses equal, no cyanosis. Neurovascular intact. Full, normal range of motion. Psych: Awake, alert, with orientation to person, place and time. Behavior, mood, and affect are within normal limits. 17:14 Neuro: Orientation: appropriate for stated age, Mentation: appropriate for stated age, able to follow commands, slow to respond, Cranial nerves: normal except right escalera deviation of both eyes with difficulty crossing the medline., Motor: is grossly normal based on the patient's age, moves all fours, Sensation: is normal, no obvious gross deficits, Gait: not tested. Vital Signs: 10:14 BP 173 / 79; Pulse 57; Resp 16; Temp 98.0(TE); Pulse Ox 97% on R/A; Weight 65.77 kg; ss Height 5 ft. 9 in. (175.26 cm); Pain 0/10; 12:47 BP 160 / 66; Pulse 54; Resp 18; Pulse Ox 100% on R/A; ph 13:34 BP 173 / 66; Pulse 56; Resp 16; Pulse Ox 98% on R/A; ph 15:00 BP 173 / 70; Pulse 52; Resp 16; Pulse Ox 100% ; ph 16:00 BP 163 / 64; Pulse 51; Resp 18; Temp 97.9; Pulse Ox 99% ; ph 10:14 Body Mass Index 21.41 (65.77 kg, 175.26 cm) ss NIH Stroke Scale Scores: 10:18 NIHSS Score: 2 kb 10:24 NIHSS Score: 2 ss 10:25 NIHSS Score: 2 ph 16:50 NIHSS Score: 2 kdr MDM: 10:12 Patient medically screened. kb 17:14 Data reviewed: vital signs. Counseling: I had a detailed discussion with the patient kdr and/or guardian regarding: the historical points, exam findings, and any diagnostic results supporting the discharge/admit diagnosis, lab results, radiology results, the need for further work-up and treatment in the hospital. ED course: D/w Dr. Gamino: may potential advantage to CT perfusion study since CT/MRI are negative. D/w Dr. Walker at [facility], Based on current s/s and negative CT/MRI he would not advise transfer for CT perfusion (anterior circulation). Re-discussed with Dr. Gamino. he will see the patient in consult after admission. 09/08 10:14 Order name: Basic Metabolic Panel; Complete Time: 10:54 kb 09/08 10:14 Order name: CBC with Diff; Complete Time: 10:54 kb 09/08 10:14 Order name: Protime (+inr); Complete Time: 10:54 kb 09/08 10:14 Order name: Ptt, Activated; Complete Time: 10:54 kb 09/08 10:14 Order name: CT Stroke Brain w/o Contrast; Complete Time: 10:54 kb 09/08 10:14 Order name: Stroke CXR 1 View; Complete Time: 11:57 kb 09/08 10:14 Order name: EKG; Complete Time: 10:14 kb 09/08 10:14 Order name: Accucheck; Complete Time: 10:26 kb 09/08 10:14 Order name: Cardiac monitoring; Complete Time: 10:26 kb 09/08 10:14 Order name: EKG - Nurse/Tech; Complete Time: 10:24 kb 09/08 10:14 Order name: IV Saline Lock; Complete Time: 10: kb 09/08 10:14 Order name: Labs collected and sent; Complete Time: 10: kb 09/08 10:54 Order name: MRI - Brain Wo Cont; Complete Time: 11:57 kdr 09/08 10:14 Order name: NPO; Complete Time: 10:26 kb 09/08 10:14 Order name: O2 Per Protocol; Complete Time: 10: kb 09/08 10:14 Order name: O2 Sat Monitoring; Complete Time: 10:27 kb 09/08 10:14 Order name: Stroke Swallow Screen; Complete Time: 11:56 kb EC:47 Rate is 56 beats/min. Rhythm is regular, Sinus bradycardia with No ectopy. QRS Fritch is kdr Normal. Left axis deviation noted. RI interval is normal. QRS interval is normal. QT interval is normal. No Q waves. Clinical impression: Sinus bradycardia and No evidence of ischemia. Administered Medications: 11:50 Drug: Potassium Chloride 40 mEq Route: PO; em 13:34 Follow up: Response: No adverse reaction ph Disposition: 14:09 Co-signature as Attending Physician, Andrew Jang MD. kdr Disposition: 09/08/20 14:27 Hospitalization ordered by Khadar Negro for Observation. Preliminary diagnosis is Right lateral gaze deveiation. - Bed requested for Telemetry/MedSurg (observation). - Status is Observation. ph - Condition is Fair. - Problem is new. - Symptoms have improved. NIH Stroke Scale - NIH Stroke Score Date: 09/08/2020 Time: 10:18 Total Score = 2 1a. Level of Consciousness (LOC) - 0(Alert) 1b. Level of Consciousness (LOC) (Year \T\ Age) - 0(Both) 1c. LOC Commands (Open \T\ Closes Eyes/Boxer Operator) - 0(Both) 2. Best Gaze (Lateral Gaze Paresis) - 2(Forced deviation) 3. Visual Field Loss - 0(No visual loss) 4. Facial Palsy - 0(Normal) 5a. Left Arm: Motor (10-second hold) - 0(No drift) 5b. Right Arm: Motor (10-second hold) - 0(No drift) 6a. Left Leg: Motor (5-second hold - always test supine) - 0(No drift) 6b. Right Leg: Motor (5-second hold - always test supine) - 0(No drift) 7. Limb Ataxia (finger/nose \T\ heel/carlson - test with eyes open) - 0(Absent) 8. Sensory Loss (pinprick arms/legs/face) - 0(Normal) 9. Best Language: Aphasia (description/naming/reading) - 0(No aphasia) 10. Dysarthria (speech clarity - read or repeat words) - 0(Normal) 11. Extinction and Inattention (visual/tactile/auditory/spatial/personal) - 0(No abnormality) Initials: NIH Stroke Scale - NIH Stroke Score Date: 09/08/2020 Time: 10:24 Total Score = 2 1a. Level of Consciousness (LOC) - 0(Alert) 1b. Level of Consciousness (LOC) (Year \T\ Age) - 0(Both) 1c. LOC Commands (Open \T\ Closes Eyes/Boxer Operator) - 0(Both) 2. Best Gaze (Lateral Gaze Paresis) - 2(Forced deviation) 3. Visual Field Loss - 0(No visual loss) 4. Facial Palsy - 0(Normal) 5a. Left Arm: Motor (10-second hold) - 0(No drift) 5b. Right Arm: Motor (10-second hold) - 0(No drift) 6a. Left Leg: Motor (5-second hold - always test supine) - 0(No drift) 6b. Right Leg: Motor (5-second hold - always test supine) - 0(No drift) 7. Limb Ataxia (finger/nose \T\ heel/carlson - test with eyes open) - 0(Absent) 8. Sensory Loss (pinprick arms/legs/face) - 0(Normal) 9. Best Language: Aphasia (description/naming/reading) - 0(No aphasia) 10. Dysarthria (speech clarity - read or repeat words) - 0(Normal) 11. Extinction and Inattention (visual/tactile/auditory/spatial/personal) - 0(No abnormality) Initials: NIH Stroke Scale - NIH Stroke Score Date: 09/08/2020 Time: 10:25 Total Score = 2 1a. Level of Consciousness (LOC) - 0(Alert) 1b. Level of Consciousness (LOC) (Year \T\ Age) - 0(Both) 1c. LOC Commands (Open \T\ Closes Eyes/Boxer Operator) - 0(Both) 2. Best Gaze (Lateral Gaze Paresis) - 2(Forced deviation) 3. Visual Field Loss - 0(No visual loss) 4. Facial Palsy - 0(Normal) 5a. Left Arm: Motor (10-second hold) - 0(No drift) 5b. Right Arm: Motor (10-second hold) - 0(No drift) 6a. Left Leg: Motor (5-second hold - always test supine) - 0(No drift) 6b. Right Leg: Motor (5-second hold - always test supine) - 0(No drift) 7. Limb Ataxia (finger/nose \T\ heel/carlson - test with eyes open) - 0(Absent) 8. Sensory Loss (pinprick arms/legs/face) - 0(Normal) 9. Best Language: Aphasia (description/naming/reading) - 0(No aphasia) 10. Dysarthria (speech clarity - read or repeat words) - 0(Normal) 11. Extinction and Inattention (visual/tactile/auditory/spatial/personal) - 0(No abnormality) Initials: NIH Stroke Scale - NIH Stroke Score Date: 09/08/2020 Time: 16:50 Total Score = 2 1a. Level of Consciousness (LOC) - 0(Alert) 1b. Level of Consciousness (LOC) (Year \T\ Age) - 0(Both) 1c. LOC Commands (Open \T\ Closes Eyes/Boxer Operator) - 0(Both) 2. Best Gaze (Lateral Gaze Paresis) - 2(Forced deviation) 3. Visual Field Loss - 0(No visual loss) 4. Facial Palsy - 0(Normal) 5a. Left Arm: Motor (10-second hold) - 0(No drift) 5b. Right Arm: Motor (10-second hold) - 0(No drift) 6a. Left Leg: Motor (5-second hold - always test supine) - 0(No drift) 6b. Right Leg: Motor (5-second hold - always test supine) - 0(No drift) 7. Limb Ataxia (finger/nose \T\ heel/carlson - test with eyes open) - 0(Absent) 8. Sensory Loss (pinprick arms/legs/face) - 0(Normal) 9. Best Language: Aphasia (description/naming/reading) - 0(No aphasia) 10. Dysarthria (speech clarity - read or repeat words) - 0(Normal) 11. Extinction and Inattention (visual/tactile/auditory/spatial/personal) - 0(No abnormality) Initials: kdr Signatures: Dispatcher [employer] EDMS Noelle Rutledge, MEAT PUMPER-C MEAT PUMPER-CkAndrew Moraes MD MD [facility] Gaudencio Estevez RN RN Mis Rollins RN RN Yanique Andrews RN RN Velasquez Pitts, KARLOS RN ja Corrections: (The following items were deleted from the chart) 15:41 14:27 Hospitalization Ordered by Khadar Negro DO for Observation. Preliminary ja diagnosis is Right lateral gaze deveiation. Bed requested for Telemetry/MedSurg (observation). Status is Observation. Condition is Fair. Problem is new. Symptoms have improved. kdr 16:30 15:41 09/08/2020 14:27 Hospitalization Ordered by Khadar Negro DO for Observation. Preliminary diagnosis is Right lateral gaze deveiation. Bed requested for Telemetry/MedSurg (observation). Status is Observation. Condition is Fair. Problem is new. Symptoms have improved. ja1 16:55 16:41 The patient's problem is reported as altered mental status, disoriented kdr to confused, difficulty walking, falling to right, off balance, dysphasia, incoherent speech, expressive aphasia, kdr 16:55 16:41 Duration: The episodes are intermittent, Has largely returned to kdr baseline, kdr 16:55 16:41 Context: the episode(s) was witnessed, by family, , symptoms became kdr apparent at 09:30. occurred at home, occurred while the patient was walking, kdr 16:55 16:41 The symptoms are alleviated by nothing. The symptoms are aggravated by kdr nothing. kdr 16:55 16:41 Associated signs and symptoms: Pertinent positives: ataxia, confusion, kdr gait abnormality, vertigo, weakness, kdr 16:55 16:41 Severity of symptoms: At their worst the symptoms were severe kdr incapacitating this morning, in the emergency department the symptoms have improved markedly, kdr 16:55 16:41 Patient's baseline: Neuro: alert and fully oriented, Motor: no deficits, kdr The patient feels that he has had increasing problems with his coordination over the last week or more, Ambulation: walks with assist only, uses walker, Speech: the patient makes incomprehensible sounds, the patient can speak but doesn't make sense, Now largely resolved, kdr 16:55 16:41 The patient has not experienced similar symptoms in the past, kdr kdr 16:55 16:41 The patient states that he has had increasing coordination difficulty, kdrkdr
--- NOTE | 2020-09-08 15:19 | P.HP ---
Certification for Inpatient Patient admitted to: Observation With expected LOS: <2 Midnights Patient will require the following post-hospital care: Home Health Services Practitioner: I am a practitioner with admitting privileges, knowledge of patient current condition, hospital course, and medical plan of care. Services: Services provided to patient in accordance with Admission requirements found in Title 42 Section 412.3 of the Code of Federal Regulations Patient History Date of Service: 09/08/20 Primary Care Provider: EMILY Patient Reason for admission: Right lateral gaze, ataxia History of Present Illness: 75 yo CM with history of HTN, Prior CVA, Hyperlipidemia, Tobacco abuse. Patient presented to the ER with right lateral eye gaze and ataxia. Information came the ER physician and son who was present. Son reports the patient was doing well around 6-9 p.m. yesterday. The patient apparently woke up around 2:00 a.m.. At that time there was some question of right-sided weakness. He went back to sleep after he ate a snack. When he woke up this morning son reported right lateral eye gaze. Some ataxia noted. Patient was leaning to the right side. Patient did not have any chest pain, shortness of breath. Patient with prior history of CVA with similar symptoms. Patient came to the ER for further evaluation. In the ER patient evaluated. CT head unremarkable. It did show an old right occipital lobe infarct and small old bilateral basal ganglia infarcts. MRI without contrast showed no acute stroke. White count 12.1, hemoglobin 14.3. Platelet count 238. Sodium 143, potassium 3.1. BUN of 18, creatinine 0.6 with a GFR greater than 90. Glucose 100. If ER spoke spoke to neurology locally. Neurology locally recommended to speak to Neurology in [place] to see if patient would require transfer for further evaluation. ER discuss the case further. No indication for transfer. It was recommended to further evaluate with MRI with contrast and possible EEG. Patient admitted for further evaluation. When I saw the patient ER, patient appeared comfortable. Patient still smokes regularly. Medications reviewed from home. Son reports that patient may have some history of carotid arterial stenosis. Patient admits to abdominal aortic aneurysm repair and stents to the lower extremity. Allergies iodine Allergy (Intermediate, Verified 02/15/20 23:31) Hives Penicillins Allergy (Unknown, Verified 02/15/20 03:20) unknown Home medications list reviewed: Yes Home Medications: Aspirin [Aspirin EC 81 MG] 81 mg PO DAILY #30 tablet. 02/17/20 Atorvastatin Calcium [Lipitor] 40 mg PO BEDTIME #90 tab 02/17/20 Clopidogrel Bisulfate [Plavix*] 75 mg PO DAILY #90 tablet 02/17/20 Finasteride [Proscar*] 5 mg PO BEDTIME tab 02/17/20 Losartan Potassium [Cozaar*] 100 mg PO DAILY #60 tablet 02/17/20 NIFEdipine [Nifedipine ER] 60 mg PO BEDTIME #60 tab.er.24 02/17/20 Omeprazole 20 mg PO DAILY #90 capsule. 02/17/20 Thiamine HCl [Vitamin B-1*] 100 mg PO DAILY #90 tablet 02/17/20 - Past Medical/Surgical History Diabetic: No -: Hypertension -: Hyperlipidemia -: Enlarged prostate -: Skin carcinoma (right ear) -: GERD -: Tobacco abuse -: History of CVA -: PVD -: History of AAA repair -: History of lower extremity stents -: AAA repair -: bilateral femoral stent Psychosocial/ Personal History: Patient lives by himself but son takes care of him there. - Family History Mother -: Diabetes Notes: thyroid problem Father -: Heart disease Brother -: Hypertension Sister -: Hypertension Notes: thyroid problem - Social History Smoking Status: Heavy Tobacco smoker (>10 cigarettes/day) Smoking therapy provided: Yes Patient receptive to therapy: Yes Alcohol use: No CD- Drugs: No Caffeine use: Yes Place of Residence: Home Review of Systems General: Weakness, As per HPI Eyes: Unremarkable ENT: As per HPI Respiratory: Unremarkable Cardiovascular: Unremarkable Gastrointestinal: Unremarkable Genitourinary: Unremarkable Musculoskeletal: Unremarkable Integumentary: Unremarkable Neurological: As per HPI Lymphatics: Unremarkable Physical Examination - Physical Exam General: Alert, In no apparent distress, Oriented x3, Cooperative HEENT: Atraumatic, Normocephalic, PERRLA, Mucous membr. moist/pink, EOMI Neck: Supple Respiratory: Clear to auscultation bilaterally, Normal air movement Cardiovascular: Normal pulses, Regular rate/rhythm Gastrointestinal: Normal bowel sounds, Soft and benign, Non-distended, No tenderness, No masses, No rebound, No guarding Musculoskeletal: No erythema, No tenderness, No warmth Integumentary: No tenderness/swelling, No erythema, No warmth, No cyanosis Neurological: Normal speech, Normal strength at 5/5 x4 extr, Normal tone, Normal affect, Other (Patient required some assistance upon standing. Patient leaning to the right side. Patient did not have any significant right lateral gaze. Patient appropriate. Patient follows commands. No aphaxia noted.) - Studies Laboratory Data (last 24 hrs) 09/08/20 10:25: PT 11.5, INR 0.97, APTT 28.7 09/08/20 10:25: WBC 12.1 H, Hgb 14.3, Hct 42.1, Plt Count 238 09/08/20 10:25: Sodium 143, Potassium 3.1 L, BUN 18, Creatinine 0.67, Glucose 100 Assessment and Plan - Plan Impression: Right lateral eye gaze with ataxia suspect CVA with history of CVA/PVD Hypertension Hyperlipidemia Tobacco abuse GERD Depression History of abdominal aortic aneurysm repair and PVD to the lower extremity Plan: Right lateral eye gaze with ataxia suspect CVA with history of CVA/PVD: Patient will be admitted for further evaluation observation. We need to rule out acute stroke. Stroke protocol initiated. Will start aspirin. Add Plavix. Continue Lipitor but at a higher dose. Will provide folic acid. Will discuss case further with Neurology. Will obtain MRI with contrast, echocardiogram, carotid Doppler and EEG. Will physical therapy, occupational therapy and speech therapy evaluate patient. Will obtain home medications. Will monitor blood pressure closely. Maintain blood pressure around 150-160 systolic. Restart home medication. Will provide nicotine patch. Will provide DVT prophylaxis-Lovenox. Will provide low-dose IV fluids. Advanced care planning address with son and patient. Patient is do not resuscitate. Anticipate improvement over the next 24 hr. Patient may require home health and physical therapy at discharge. Await recommendations by Neurology. Advanced care planning 30 min. Hypertension: Restart home medication of hydralazine 50 mg 1 pill 3 times a da y, losartan 50 mg 1 pill twice daily and nifedipine 60 mg daily. Will monitor and adjust blood pressure medication. Maintain blood pressure at this time around 150-160 systolic. Hyperlipidemia: Increase Lipitor to 40 mg daily. Will check fasting lipid panel. Tobacco abuse: Will provide nicotine patch. Will address lifestyle modification and cessation education. GERD: Will provide Protonix Depression: Continue sertraline 100 mg daily History of abdominal aortic aneurysm repair and PVD to the lower extremity: Patient with history. Obtain echo and carotid Doppler. Discharge Plan: Home Plan to discharge in: 24 Hours - Advance Directives Does patient have a Living Will: No Does patient have a Durable POA for Healthcare: No - Code Status/Comfort Care Code Status Assessed: Yes (Patient is do not resuscitate.) Time Spent Managing Pts Care (In Minutes): 55
[2020-09-08] MEDS ORDERED: ONDANSETRON 4 MG/2 ML VIAL IV PRN (16:06)
[2020-09-08] MEDS ORDERED: ACETAMINOPHEN 500 MG TAB PO PRN (16:06)
[2020-09-08] MEDS ORDERED: NA CHLORIDE 0.9% 1,000 ML IV SCH (16:06)
[2020-09-08 16:51] VITALS: BMI 20.7
[2020-09-08] MEDS: HYDRALAZINE HCL 25 MG TABLET PO SCH ×2 (17:06→22:12)
[2020-09-08] MEDS: ASPIRIN 81 MG CHEWABLE TABLET PO SCH (17:07)
[2020-09-08] MEDS: NICOTINE 21 MG/PAT TD SCH (17:07)
[2020-09-08 17:11] LABS: CKMB Creatine Kinase MB < 1.0 ng/mL (0.3-3.6); Creatine Phosphokinase 23 U/L (39-308); Troponin I < 0.02 ng/mL (0.0-0.045)
[2020-09-08] MEDS: CLOPIDOGREL 75 MG TABLET PO SCH (18:10)
[2020-09-08] MEDS ORDERED: ATORVASTATIN 40 MG TAB PO SCH (21:00)
[2020-09-08] MEDS: LOSARTAN POTASSIUM 50 MG TABLET PO SCH (22:12)
[2020-09-09 01:00] LABS: CKMB Creatine Kinase MB 1.1 ng/mL (0.3-3.6); Creatine Phosphokinase 24 U/L (39-308); Troponin I < 0.02 ng/mL (0.0-0.045)
[2020-09-09 06:01] LABS: Absolute Lymphocytes (CBC) 2.4 K/uL (0.7-4.9); Basophils % 2.1 % (0-1.3); Hematocrit 40.3 % (39.6-49.0); MPV 9.5 fL (7.6-11.3); RBC Red Blood Cell Count 4.38 M/uL (4.33-5.43)
[2020-09-09 06:23] LABS: BUN Blood Urea Nitrogen 16 mg/dL (7-18); Bicarbonate 30 mmol/L (21-32); Glucose Level 89 mg/dL (74-106); HDL Cholesterol 28 mg/dL (40-60); LDL Cholesterol, Calculated 111 (<130); Magnesium 2.4 mg/dL (1.8-2.4); Sodium Level 146 mmol/L (136-145)
[2020-09-09] MEDS ORDERED: PANTOPRAZOLE 40MG TABLET PO SCH (06:30)
[2020-09-09] MEDS ORDERED: NACHLORIDE 0.45% 1,000 ML IV SCH (08:00)
[2020-09-09] MEDS: HYDRALAZINE HCL 25 MG TABLET PO SCH ×2 (08:26→13:17)
[2020-09-09] MEDS: CLOPIDOGREL 75 MG TABLET PO SCH (08:28)
[2020-09-09] MEDS: ASPIRIN 81 MG CHEWABLE TABLET PO SCH (08:28)
[2020-09-09] MEDS: LOSARTAN POTASSIUM 50 MG TABLET PO SCH (08:28)
[2020-09-09] MEDS: NICOTINE 21 MG/PAT TD SCH (08:30)
[2020-09-09] MEDS: KCL 20 MEQ/100 mL IVPB 20 MEQ/100 ML BAG IV SCH ×2 (08:31→11:14)
[2020-09-09 08:52] LABS: CKMB Creatine Kinase MB < 1.0 ng/mL (0.3-3.6); Creatine Phosphokinase 19 U/L (39-308); Troponin I < 0.02 ng/mL (0.0-0.045)
[2020-09-09] MEDS ORDERED: ENOXAPARIN 40 MG/0.4 ML SQ SCH (09:00)
[2020-09-09] MEDS ORDERED: NIFEDIPINE XL 60 MG TABLET PO SCH ×2 (09:00→21:00)
[2020-09-09] MEDS ORDERED: FOLIC ACID 1 MG TABLET PO SCH (09:00)
[2020-09-09] MEDS ORDERED: SERTRALINE HCL 100 MG TAB PO SCH (09:00)
[2020-09-09] MEDS ORDERED: THIAMINE HCL 100 MG TABLET PO SCH (09:00)
--- NOTE | 2020-09-09 09:28 | P.DS ---
Admission Date: 09/08/20 Discharge Date: 09/09/20 Primary Care Provider: EMILY Patient Disposition: DC HOME/HOME HEALTH CARE Discharge Condition: GOOD Reason for Admission: Right lateral gaze, ataxia Consultations: Neurology-Dr. Gamino Procedures: CT Scan: FINDINGS: No intracranial hemorrhage, hydrocephalus or extra-axial fluid collection.Evidence of old infarct right occipital lobe seen. Small old infarcts are also present in the basal ganglia bilaterally.No areas of brain edema or evidence of midline shift. Significant opacification of the paranasal sinuses on the left, chronic in appearance. This has the appearance of possible allergic fungal sinusitis. The calvarium is intact. IMPRESSION: No acute intracranial abnormality. MRI w/wo Brain: FINDINGS: Mild signal within periventricular, deep and subcortical white matter probably ischemic changes secondary to small vessel disease Areas of abnormal signal within the right cerebellum, brainstem and left frontal white matter compatible with old infarctions. The ventricles are normal in caliber. Diffusion-weighted/ ADC mapping sequences do not demonstrate evidence of an acute infarction. No abnormal enhancement within the brain is seen. An extra-axial fluid collection is not noted. Chronic sinusitis. Soft tissue left maxillary sinus may represent chronic s inusitis or antrochoanal polyp IMPRESSION: No acute abnormality displayed ECHO: obtained. Carotid doppler: FINDINGS: The velocity of the right internal carotid artery equals 50 cm/sec. The right ICA/CCA ratio 1.4 The velocity of the left internal carotid artery equals 77 cm/sec. The left ICA/CCA ratio 2.8 Mild plaque is present within the right internal carotid artery Moderate plaque is present within the left carotid bulb and proximal left internal carotid artery The vertebral arteries demonstrate antegrade flow IMPRESSION: Moderate plaque within the left carotid bulb and proximal left internal carotid artery NASCET criteria used. Medical Problem List: Right lateral eye gaze with ataxia suspect CVA with history of CVA/PVD Hypertension Hyperlipidemia Tobacco abuse GERD Depression History of abdominal aortic aneurysm repair and PVD to the lower extremity Brief History of Present Illness: 75 yo CM with history of HTN, Prior CVA, Hyperlipidemia, Tobacco abuse. Patient presented to the ER with right lateral eye gaze and ataxia. Information came the ER physician and son who was present. Son reports the patient was doing well around 6-9 p.m. yesterday. The patient apparently woke up around 2:00 a.m.. At that time there was some question of right-sided weakness. He went back to sleep after he ate a snack. When he woke up this morning son reported right lateral eye gaze. Some ataxia noted. Patient was leaning to the right side. Patient did not have any chest pain, shortness of breath. Patient with prior history of CVA with similar symptoms. Patient came to the ER for further evaluation. In the ER patient evaluated. CT head unremarkable. It did show an old right occipital lobe infarct and small old bilateral basal ganglia infarcts. MRI without contrast showed no acute stroke. White count 12.1, hemoglobin 14.3. Platelet count 238. Sodium 143, potassium 3.1. BUN of 18, creatinine 0.6 with a GFR greater than 90. Glucose 100. If ER spoke spoke to neurology locally. Neurology locally recommended to speak to Neurology in [place] to see if patient would require transfer for further evaluation. ER discuss the case further. No indication for transfer. It was recommended to further evaluate with MRI with contrast and possible EEG. Patient admitted for further evaluation. When I saw the patient ER, patient appeared comfortable. Patient still smokes regularly. Medications reviewed from home. Son reports that patient may have some history of carotid arterial stenosis. Patient admits to abdominal aortic aneurysm repair and stents to the lower extremity. Hospital Course: Patient presented with right lateral eye gaze and ataxia. Patient was evaluated in the emergency room. Initial CT scan unremarkable along with noncontrast MRI. The patient was admitted for further evaluation due to his history of CVA and peripheral vascular disease in the past. The patient previously on aspirin. While in the hospital patient received aspirin, Plavix, folic acid and high dose statin. The patient also received IV fluids. His condition improved. Patient was evaluated by physical therapy, occupational therapy and speech. Echocardiogram, carotid Doppler, brain MRI with and without contrast showed no acute changes. EEG cannot be performed. Neurology also consulted. Patient has done well with physical therapy. Physical therapy recommends home health and physical therapy discharge. At discharge home health and physical therapy will be arranged. New medications include Plavix and higher dose statin. At discharge he will continue with aspirin 81 mg daily, Plavix 75 mg daily, folic acid 1 mg daily, thiamine 100 mg daily, and Lipitor at 80 mg daily. Fall precautions in place. Recommend follow up with neurology in 1-2 weeks to follow up this hospitalization and continue his care. Patient with hypertension. This has remained stable. At discharge patient will continue with hydralazine 50 mg 1 pill 3 times a day, losartan 50 mg daily, and Nifedical ER 60 mg at bedtime. Recommend to maintain blood pressure less 150/80. Further adjustment can be done by his PCP or neurology. Patient with hyperlipidemia. His medication has been increased. At discharge patient will continue with Lipitor 80 mg daily. Recommend to recheck fasting lipid panel in 4-6 weeks to monitor his progress. Further adjustment can be done by his PCP. Patient with tobacco abuse. Tobacco cessation education provided. At discharge patient will be provided nicotine patch to be use daily. This can be further monitored by his PCP. Patient with GERD. At discharge patient may continue with Prilosec 20 mg daily. Patient with underlying depression. At discharge patient will continue with Zoloft 100 mg daily. Patient with history of abdominal aortic aneurysm repair and PVD to the lower extremity with prior stents. Recommend follow up with cardiology as an outpatient to further monitor. Advanced directives address in detail. Patient is DNR. Vital Signs/Physical Exam: Temp Pulse Resp BP Pulse Ox 98.6 F 53 18 174/81 H 92 09/09/20 08:00 09/09/20 08:00 09/09/20 08:00 09/09/20 08:00 09/09/20 08:00 General: Alert, In no apparent distress, Oriented x3, Cooperative HEENT: Atraumatic Neck: Supple Respiratory: Clear to auscultation bilaterally, Normal air movement Cardiovascular: Normal pulses, Regular rate/rhythm Gastrointestinal: Normal bowel sounds, No tenderness, No masses, No rebound, No guarding Musculoskeletal: No erythema, No tenderness, No warmth Integumentary: No erythema, No warmth, No cyanosis Neurological: Normal speech, Normal strength at 5/5 x4 extr, Normal tone, Normal affect Laboratory Data at Discharge: WBC 10.8 K/uL (4.3-10.9) 09/09/20 05:27 Hgb 13.9 g/dL (13.6-17.9) 09/09/20 05:27 Hct 40.3 % (39.6-49.0) 09/09/20 05:27 Plt Count 206 K/uL (152-406) 09/09/20 05:27 PT 11.5 SECONDS (9.5-12.5) 09/08/20 10:25 INR 0.97 09/08/20 10:25 APTT 28.7 SECONDS (24.3-36.9) 09/08/20 10:25 Sodium 146 mmol/L (136-145) H 09/09/20 05:27 Potassium 3.0 mmol/L (3.5-5.1) L 09/09/20 05:27 BUN 16 mg/dL (7-18) 09/09/20 05:27 Creatinine 0.71 mg/dL (0.55-1.3) 09/09/20 05:27 Glucose 89 mg/dL (74-106) 09/09/20 05:27 Magnesium 2.4 mg/dL (1.8-2.4) 09/09/20 05:27 Troponin I < 0.02 ng/mL (0.0-0.045) 09/09/20 08:02 Triglycerides 221 mg/dL (<150) H 09/09/20 05:27 Cholesterol 183 mg/dL (<200) 09/09/20 05:27 HDL Cholesterol 28 mg/dL (40-60) L 09/09/20 05:27 Cholesterol/HDL Ratio 6.54 09/09/20 05:27 Home Medications: Aspirin [Ecotrin 81 MG] 81 mg PO DAILY 09/08/20 Hydralazine [Apresoline*] 50 mg PO TID 09/08/20 Losartan Potassium 50 mg PO DAILY 09/08/20 Nifedipine [Nifedipine ER] 60 mg PO BEDTIME 09/08/20 Omeprazole 20 mg PO DAILY 09/08/20 Sertraline HCl 100 mg PO DAILY 09/08/20 Thiamine HCl 100 mg PO DAILY 09/08/20 Atorvastatin Calcium [Lipitor] 80 mg PO DAILY #30 tablet 09/09/20 Clopidogrel Bisulfate [Plavix*] 75 mg PO DAILY #30 tablet 09/09/20 Folic Acid 1 mg PO DAILY #90 tablet 09/09/20 Nicotine [Nicoderm*] 21 mg TD DAILY #30 patch.td24 09/09/20 New Medications: Folic Acid 1 mg PO DAILY #90 tablet Atorvastatin Calcium [Lipitor] 80 mg PO DAILY #30 tablet Nicotine [Nicoderm*] 21 mg TD DAILY #30 patch.td24 Clopidogrel Bisulfate [Plavix*] 75 mg PO DAILY #30 tablet Patient Discharge Instructions: 1. Recommend follow up with PCP in 1 week to follow up this hospitalization. 2. Patient presented with right lateral eye gaze and ataxia. Patient was evaluated in the emergency room. Initial CT scan unremarkable along with noncontrast MRI. The patient was admitted for further evaluation due to his history of CVA and peripheral vascular disease in the past. The patient previously on aspirin. While in the hospital patient received aspirin, Plavix, folic acid and high dose statin. The patient also received IV fluids. His condition improved. Patient was evaluated by physical therapy, occupational therapy and speech. Echocardiogram, carotid Doppler, brain MRI with and without contrast showed no acute changes. EEG cannot be performed. Neurology also consulted. Patient has done well with physical therapy. Physical therapy recommends home health and physical therapy discharge. At discharge home health and physical therapy will be arranged. New medications include Plavix and higher dose statin. At discharge he will continue with aspirin 81 mg daily, Plavix 75 mg daily, folic acid 1 mg daily, thiamine 100 mg daily, and Lipitor at 80 mg daily. Fall precautions in place. Recommend follow up with neurology in 1-2 weeks to follow up this hospitalization and continue his care. 3. Patient with hypertension. This has remained stable. At discharge patient will continue with hydralazine 50 mg 1 pill 3 times a day, losartan 50 mg daily, and Nifedical ER 60 mg at bedtime. Recommend to maintain blood pressure less 150/80. Further adjustment can be done by his PCP or neurology. 4. Patient with hyperlipidemia. His medication has been increased. At discharge patient will continue with Lipitor 80 mg daily. Recommend to recheck fasting lipid panel in 4-6 weeks to monitor his progress. Further adjustment can be done by his PCP. 5. Patient with tobacco abuse. Tobacco cessation education provided. At discharge patient will be provided nicotine patch to be use daily. This can be further monitored by his PCP. 6. Patient with GERD. At discharge patient may continue with Prilosec 20 mg daily. 7. Patient with underlying depression. At discharge patient will continue with Zoloft 100 mg daily. 8. Patient with history of abdominal aortic aneurysm repair and PVD to the lower extremity with prior stents. Recommend follow up with cardiology as an outpatient to further monitor. 9. Advanced directives address in detail. Patient is DNR. Diet: AHA Activity: Fall precautions Time spent managing pt's care (in minutes): 55
--- NOTE | 2020-09-09 10:01 | RAD REPORT ---
EXAM DESCRIPTION: MRI - Brain W/Wo Cont - 09/08/2020 9:19 pm CLINICAL HISTORY: Ataxia COMPARISON: MRI brain September 08, 2020 TECHNIQUE: Axial, sagittal, and coronal magnetic images of the brain were obtained. Twelve cc MultiH ance administered intravenously FINDINGS: Mild signal within periventricular, deep and subcortical white matter probably ischemic ch anges secondary to small vessel disease Areas of abnormal signal within the right cerebellum, brainstem and left frontal white matter compati ble with old infarctions. The ventricles are normal in caliber. Diffusion-weighted/ ADC mapping sequences do not demonstrate evidence of an acute infarction. No abnormal enhancement within the brain is seen. An extra-axial fluid collection is not noted. Chronic sinusitis. Soft tissue left maxillary sinus may represent chronic sinusitis or antrochoanal p olyp IMPRESSION: No acute abnormality displayed
--- NOTE | 2020-09-09 10:17 | RAD REPORT ---
EXAM DESCRIPTION: USCarotid Artery Kzpmdzheo97/15/2020 9:54 pm CLINICAL HISTORY: Ataxia COMPARISON: January 2020 MRA FINDINGS: The velocity of the right internal carotid artery equals 50 cm/sec. The right ICA/CCA rati o 1.4 The velocity of the left internal carotid artery equals 77 cm/sec. The left ICA/CCA ratio 2.8 Mild plaque is present within the right internal carotid artery Moderate plaque is present within the left carotid bulb and proximal left internal carotid artery The vertebral arteries demonstrate antegrade flow IMPRESSION: Moderate plaque within the left carotid bulb and proximal left internal carotid artery NASCET criteria used. Mild 0-49% stenosis Moderate 50-69% stenosis Severe 70-99% stenosis
[2020-09-09 10:21] VITALS: O2SAT 92
[2020-09-09 13:36] VITALS: BP 174/68; TEMP 99.3
--- NOTE | 2020-09-09 14:33 | ECHO ---
HEIGHT: 5 ft 9 in WEIGHT: 140 lb 0 oz DATE OF STUDY: 09/09/[address]: Khadar Negro DO 2-DIMENSIONAL: YES M.MODE: YES DOPPLER: YES COLOR FLOW: YES TDS: NO PORTABLE: NO DEFINITY: NO BUBBLE STUDY: NO DIAGNOSIS: RIGHT LATERAL GAZE, ATAXIA, SUSPECT CEREBRAL VASCULAR ACCIDENT CARDIAC HISTORY: CATHERIZATION: NO SURGERY: NO PROSTHETIC VALVE: NO PACEMAKER: NO MEASUREMENTS (cm) DIASTOLIC (NORMALS) SYSTOLIC (NORMALS) IVSd 1.0 (0.6-1.2) LA Diam 3.2 (1.9-4.0) LVEF 66% LVIDd 4.0 (3.5-5.7) LVIDs 2.6 (2.0-3.5) %FS 36% LVPWd 1.1 (0.6-1.2) Ao Diam 3.1 (2.0-3.7) 2 DIMENSIONAL ASSESSMENT: RIGHT ATRIUM: NORMAL LEFT ATRIUM: NORMAL RIGHT VENTRICLE: NORMAL LEFT VENTRICLE: NORMAL TRICUSPID VALVE: NORMAL MITRAL VALVE: PULMONIC VALVE: NORMAL AORTIC VALVE: PERICARDIAL EFFUSION: NONE AORTIC ROOT: NORMAL LEFT VENTRICULAR WALL MOTION: NORMAL DOPPLER/COLOR FLOW: NORMAL COMMENTS: NORMAL LEFT VENTRICULAR EJECTION FRACTION 55-60% WITH NORMAL WALL MOTION. MILD MITRAL REGURGITATION. MILD AORTIC INSUFFIENCY. TECHNOLOGIST: George PIERCE
--- NOTE | 2020-09-09 15:22 | CON ---
Reason For Consultation: Consultation called because of right gaze preference and unsteady gait and falling to the right. History Of Present Illness: Mr. Baxter is a 75-year-old patient with multiple stroke risk factors i ncluding hypertension, dyslipidemia, tobacco abuse and chronic strokes. He does have strokes, involv ed both hemispheres and the chronic left frontal stroke. His son said around 2 a.m. 2 days ago, he w cony up and was noted to have right-sided weakness, somewhat disoriented. His eyes were pointed over towards the right. He was leaning and falling towards the right when trying to ambulate. He did not have any chest pain, shortness of breath. No stiff neck. No headache. No fever. [facility] head CT scan showed no acute ischemic or hemorrhagic change, chronic right occipital lobe stroke, small bilateral basal ganglia infarcts and then there was an anterior frontal left chronic stroke. MRI done twice, 1 without and with contrast, ruled out the presence of an acute stroke, but the patie nt as indicated has the chronic strokes. The patient did not get an EEG as EEG was not available. A t the time of my evaluation, he did have a mild right gaze preference, but actually had been ambulate d earlier with physical therapy, was able to make around a [address] with some redirecting and cuing. Past Medical History: As indicated. Allergies: IODINE AND PENICILLIN. Medications: Aspirin 81 mg daily, Atorvastatin 40 mg at bedtime, Plavix 75 mg daily, Proscar 5 mg at bedtime, Cozaar 100 mg daily, nifedipine 60 mg at bedtime, omeprazole 20 mg daily, thiamine 100 mg d aily. Past Medical History: Includes hypertension, dyslipidemia, prostate hypertrophy, skin cancer, gastro esophageal reflux disease, chronic tobacco abuse, strokes, peripheral vascular disease. Surgical History: Abdominal aortic aneurysm repair, stents in the lower extremities. Family History: Diabetes, thyroid problems in mother. Father with heart disease. Brother with hype rtension. Sister with hypertension and thyroid problems. Social History: The patient smokes at least a pack of cigarettes daily. Heavy use of alcohol until earlier this year and drinks caffeinated beverages. Review of Systems: As indicated, he had some vision issues prior to his arrival from his chronic stroke and diffuse weak ness but had recovered significantly after his more recent stroke. Physical Examination: Vital Signs: Blood pressure 122-174/68-81, pulse 53-69, temperature max 99.3, oxygen saturation 96% on room air. Weight 140 pounds, height 5 feet 9 inches, BMI 20.7. General: Mr. Baxter is sitting in a chair beside his bed. His son is in the room. He is in no acu te distress. HEENT: He is normocephalic, atraumatic. Sclerae anicteric. Oropharynx is pink and moist. Neck: Supple. Chest: Clear. Heart: Regular. Extremities: Show no clubbing, cyanosis, or edema. Neurologic: He is alert and oriented to situation, place, and person. He follows commands appropria tely. On cranial nerve examination, he has a right gaze preference, but is capable of voluntarily mo ving his eyes to the left, up, down without any difficulty and has full visual rosas. Cranial nerve s otherwise unremarkable. Motor examination, he has symmetric strength in upper and lower extremitie s by the stroke stocking-glove loss, light touch, temperature, hyperreflexia in the upper and lower e xtremities. He has good coordination. Some difficulty reaching with [id number] and fine finger movements, but is well coordinated. Gait tends to drift to the right side. Laboratory Studies: Complete blood count with differential is normal. Coagulation panel unremarkabl e. Chemistries showed no significant abnormalities except after he did receive hydration. He did bustos ve elevated sodium of 146. When he came in was 143. Creatine kinase was slightly low. Thyroid func tion studies normal. HDL low at 28, LDL 111, which is elevated for someone with a chronic stroke. Assessment: Mr. Baxter is a 75-year-old patient with multiple strokes who has heavy tobacco depende ncy, and a right gaze preference, possibly from an irritated left frontal region chronic stroke. He did not get an EEG as EEG was not available. MRI of the brain ruled out presence of an acute stroke. His echocardiogram showed an ejection fraction of 66% with normal wall motion. No evidence of a cl ot or thrombus. His chest x-ray showed no evidence of a pneumonia. Assessment: Mr. Baxter is a 75-year-old patient with multiple stroke risk factors including hyperte nsion, dyslipidemia, as well as chronic stroke, coronary artery related issues and vascular issues in terms of arteries of the legs. He does have a right gaze preference, possibly from irritated left f rontal lobe region following his chronic left frontal lobe stroke. Plan: 1.He should have an EEG. We will do outpatient. 2.May put him on Keppra 5 mg twice daily. 3.Aggressive management of stroke risk reductions. 4.He should stop smoking tobacco, cigarettes. 5.Follow up with primary care physician as indicated. 6.Follow up in this clinic next week after his discharge. SHRUTHI Voice ID: [id number] Report ID: [id number]
[2020-09-09] MEDS ORDERED: ATORVASTATIN 80 MG TAB PO SCH (21:00)
== END 2020-09-09 14:39 | disposition home health service (06) ==
LOC: ER 10:09 → ERHOLD 15:06 → 2ND 16:00
PROVIDERS: ADMIT Family Medicine; ATTEND Family Medicine
DX: H51.8 Other specified disorders of binocular movement (principal); R27.0 Ataxia, unspecified; E78.5 Hyperlipidemia, unspecified; I11.0 Hypertensive heart disease with heart failure; I50.9 Heart failure, unspecified; I73.9 Peripheral vascular disease, unspecified; N40.0 Benign prostatic hyperplasia without lower urinary tract symptoms; K21.9 Gastro-esophageal reflux disease without esophagitis; E78.00 Pure hypercholesterolemia, unspecified; F32.9 Major depressive disorder, single episode, unspecified; Z86.73 Personal history of transient ischemic attack (TIA), and cerebral infarction without residual deficits; F17.210 Nicotine dependence, cigarettes, uncomplicated; Z71.6 Tobacco abuse counseling; Z66 Do not resuscitate; Z79.82 Long term (current) use of aspirin; Z79.02 Long term (current) use of antithrombotics/antiplatelets; Z88.0 Allergy status to penicillin; Z88.8 Allergy status to other drugs, medicaments and biological substances; Z85.828 Personal history of other malignant neoplasm of skin; Z82.49 Family history of ischemic heart disease and other diseases of the circulatory system; Z83.3 Family history of diabetes mellitus
CPT/HCPCS: 93005; 93306; 85025 ×2; 80048 ×2; 36415; 83735; 82550 ×3; 85610; 80061; 85730; 84443; 84484 ×3; 82553 ×3; 84439; 70450; 71045; 93880; 70551; 70553; 97162; 99285; A9577; J3480 ×2; J1650; J7030; G0378 ×3

== ENCOUNTER 2020-09-13 09:47 | Emergency (ER) | payer OTHER ==
[2020-09-13] MEDS ORDERED: OXYMETAZOLINE HCL 0.05% 15ML NAS ONE (10:21)
[2020-09-13 10:49] LABS: Absolute Lymphocytes (CBC) 2.6 K/uL (0.7-4.9); Basophils % 2.8 % (0-1.3); Hematocrit 38.1 % (39.6-49.0); Lymphocytes % 21.7 % (15.3-44.8); MPV 9.5 fL (7.6-11.3); RBC Red Blood Cell Count 4.18 M/uL (4.33-5.43)
[2020-09-13 10:53] LABS: Protime INR 1.05
[2020-09-13 11:05] LABS: BUN Blood Urea Nitrogen 24 mg/dL (7-18); Bicarbonate 31 mmol/L (21-32); Glucose Level 115 mg/dL (74-106); Sodium Level 144 mmol/L (136-145)
[2020-09-13] MEDS ORDERED: KCL 20 MEQ/100 mL IVPB 20 MEQ/100 ML BAG IV ONE (12:47)
[2020-09-13] MEDS ORDERED: NA CHLORIDE 0.9% 250 ML ONE (12:47)
--- NOTE | 2020-09-13 13:04 | ER ---
Nurse's Notes [facility] Name: Miguel Baxter Age: 75 yrs Sex: Male : 1945 Arrival Date: 09/13/2020 Time: 09:52 Bed 18 Private MD: Diagnosis: Epistaxis-Left nare Presentation: 09/13 09:53 Chief complaint: EMS states: Nose bleed since about 0600 this morning, denies trauma. jl7 Coronavirus screen: Client denies travel out of the [place] in the last 14 days. At this time, the client does not indicate any symptoms associated with coronavirus-19. Ebola Screen: No symptoms or risks identified at this time. Initial Sepsis Screen: Does the patient meet any 2 criteria? No. Patient's initial sepsis screen is negative. Does the patient have a suspected source of infection? No. Patient's initial sepsis screen is negative. Risk Assessment: Do you want to hurt yourself or someone else? Patient reports no desire to harm self or others. Onset of symptoms was September 13, 2020 at 06:00. Care prior to arrival: None. Transition of care: patient was not received from another setting of care. 09:53 Method Of Arrival: EMS: [facility] jl7 09:53 Acuity: JANAY 3 jl7 Triage Assessment: 09:56 General: Appears in no apparent distress. uncomfortable, Behavior is calm, cooperative, jl7 appropriate for age. Pain: Denies pain. EENT: Nares with bleeding noted. Neuro: Level of Consciousness is awake, alert, obeys commands. Cardiovascular: Patient's skin is warm and dry. Respiratory: Airway is patent Respiratory effort is even, unlabored, Respiratory pattern is regular, symmetrical. Derm: Skin is pink, warm \T\ dry. Historical: - Allergies: 09:56 Iodine; jl7 09:56 PENICILLINS; jl7 - Home Meds: 09:56 aspirin 81 mg Oral chew 1 tab once daily [Active]; atorvastatin 20 mg Oral tab 1 tab jl7 once daily [Active]; lisinopril 20 mg Oral tab 1 tab once daily [Active]; Nifediac CC 60 mg bedtime Oral [Active]; omeprazole 20 mg Oral cpDR 1 cap once daily [Active]; sertraline 100 mg Oral tab 1 tab once daily [Active]; thiamine HCl (vitamin B1) 100 mg Oral tab daily [Active]; - PMHx: 09:56 CHF; CVA; Diabetes; High Cholesterol; Hypertension; jl7 - Immunization history:: Adult Immunizations up to date. - Social history:: Smoking status: Patient denies any tobacco usage or history of. Screenin:46 Abuse screen: Denies threats or abuse. Denies injuries from another. Nutritional jl7 screening: No deficits noted. Tuberculosis screening: No symptoms or risk factors identified. Fall Risk IV access (20 points). Total Pitts Fall Scale indicates No Risk (0-24 pts). Assessment: 10:00 General: See triage assessment. jl7 10:25 Reassessment: Rhino-rocket placed in left nare by Dr. Jang, pt tolerated well. jl7 10:30 Reassessment: Pt sneezed and rhino-rocket dislodge. ERD notified, replaced with new one.jl7 12:00 Reassessment: Rhino-rocket noted to be dislodging, VO from Dr. Jang to place the jl7 clamp back on the pt's nose. Dr. Jang notifying ENT. 13:19 Reassessment: VO to dc potassium infusion and discharge pt for follow-up with ENT. jl7 Vital Signs: 09:53 BP 187 / 76; Pulse 58; Resp 15; Pulse Ox 99% ; Pain 0/10; jl7 10:00 BP 175 / 86; Pulse 55; Resp 15; Pulse Ox 98% ; jl7 11:00 BP 167 / 86; Pulse 54; Resp 16; Pulse Ox 97% ; jl7 12:00 BP 178 / 81; Pulse 55; Resp 17; Pulse Ox 98% ; jl7 12:46 BP 184 / 77; Pulse 56; Resp 17; Pulse Ox 98% ; Pain 0/10; jl7 ED Course: 09:52 Patient arrived in ED. jl7 09:55 Triage completed. jl7 09:56 Arm band placed on right wrist. jl7 10:06 Andrew Jang MD is Attending Physician. kdr 10:34 James Henson RN is Primary Nurse. jl7 10:43 Initial lab(s) drawn, by fl, sent to lab. Inserted saline lock: 20 gauge in right jl7 forearm, using aseptic technique. Blood collected. 10:46 Patient has correct armband on for positive identification. Bed in low position. Call jl7 light in reach. Side rails up X 1. Pulse ox on. NIBP on. 13:03 Annie Almeida MD is Referral Physician. kdr 13:20 No provider procedures requiring assistance completed. IV discontinued, intact, jl7 bleeding controlled, No redness/swelling at site. Pressure dressing applied. Administered Medications: 12:40 Drug: Potassium Chloride 20 mEq Route: IV; Rate: calculated rate; Site: right forearm; jl7 13:20 Follow up: Response: No adverse reaction; IV Status: Order to discontinue infusion jl7 13:00 Drug: Potassium Chloride 20 mEq Route: PO; jl7 13:20 Follow up: Response: No adverse reaction jl7 Outcome: 13:04 Discharge ordered by . kdr 13:20 Discharged to home via wheelchair, with family. jl7 13:20 Condition: stable 13:20 Discharge instructions given to patient, family, Instructed on discharge instructions, follow up and referral plans. Demonstrated understanding of instructions, follow-up care. 13:21 Patient left the ED. jl7 Signatures: Andrew Jang MD MD kdr James Henson, RN RN jl7
--- NOTE | 2020-09-13 13:04 | EDPHYS ---
Physician Documentation [facility] Name: Miguel Baxter Age: 75 yrs Sex: Male : 1945 Arrival Date: 09/13/2020 Time: 09:52 Bed 18 Private MD: ED Physician Andrew Jang HPI: 09/13 16:56 This 75 yrs old Male presents to ER via EMS with complaints of Nose Bleed. kdr 16:56 The patient presents with a nose bleed, that is apparently anterior, from the left kdr nare, occurred from an unknown cause, that is continuous causative factors include: unknown, and the bleeding is not resolved and continues in ER. Onset: The symptoms/episode began/occurred suddenly, this morning. Modifying factors: The symptoms are alleviated by nothing. the symptoms are aggravated by blowing nose. Associated signs and symptoms: The patient has no apparent associated signs or symptoms, Loss of consciousness: the patient experienced no loss of consciousness. Severity of symptoms: At their worst the symptoms were mild moderate just prior to arrival, in the emergency department the symptoms are unchanged. The patient has not experienced similar symptoms in the past. The patient has not recently seen a physician. Historical: - Allergies: 09:56 Iodine; jl7 09:56 PENICILLINS; jl7 - Home Meds: 09:56 aspirin 81 mg Oral chew 1 tab once daily [Active]; atorvastatin 20 mg Oral tab 1 tab jl7 once daily [Active]; lisinopril 20 mg Oral tab 1 tab once daily [Active]; Nifediac CC 60 mg bedtime Oral [Active]; omeprazole 20 mg Oral cpDR 1 cap once daily [Active]; sertraline 100 mg Oral tab 1 tab once daily [Active]; thiamine HCl (vitamin B1) 100 mg Oral tab daily [Active]; - PMHx: 09:56 CHF; CVA; Diabetes; High Cholesterol; Hypertension; jl7 - Immunization history:: Adult Immunizations up to date. - Social history:: Smoking status: Patient denies any tobacco usage or history of. ROS: 16:56 Constitutional: Negative for fever, chills, and weight loss, Eyes: Negative for injury, kdr pain, redness, and discharge, Neck: Negative for injury, pain, and swelling, Cardiovascular: Negative for chest pain, palpitations, and edema, Respiratory: Negative for shortness of breath, cough, wheezing, and pleuritic chest pain, Abdomen/GI: Negative for abdominal pain, nausea, vomiting, diarrhea, and constipation. 16:56 ENT: Positive for nose bleed. Exam: 16:56 Constitutional: This is a well developed, well nourished patient who is awake, alert, kdr and in no acute distress. Head/Face: Normocephalic, atraumatic. Eyes: Pupils equal round and reactive to light, extra-ocular motions intact. Lids and lashes normal. Conjunctiva and sclera are non-icteric and not injected. Cornea within normal limits. Periorbital areas with no swelling, redness, or edema. Neck: Trachea midline, no thyromegaly or masses palpated, and no cervical lymphadenopathy. Supple, full range of motion without nuchal rigidity, or vertebral point tenderness. No Meningismus. Chest/axilla: Normal chest wall appearance and motion. Nontender with no deformity. No lesions are appreciated. 16:56 ENT: Nose: bleeding, is seen from the left nare, and is moderate. Vital Signs: 09:53 BP 187 / 76; Pulse 58; Resp 15; Pulse Ox 99% ; Pain 0/10; jl7 10:00 BP 175 / 86; Pulse 55; Resp 15; Pulse Ox 98% ; jl7 11:00 BP 167 / 86; Pulse 54; Resp 16; Pulse Ox 97% ; jl7 12:00 BP 178 / 81; Pulse 55; Resp 17; Pulse Ox 98% ; jl7 12:46 BP 184 / 77; Pulse 56; Resp 17; Pulse Ox 98% ; Pain 0/10; jl7 Procedures: 16:56 Epistaxis treatment: A moderate amount of bleeding noted from left nare. Treated using kdr direct pressure, nasal clamp, rhino rocket, Bleeding The tampon was sneezed out the first time and then it slowly slid out the next time. This was replaced by a simple clamp and he was sent directly to Dr. Almeida's office for definitive caer. MDM: 13:04 Patient medically screened. kdr 16:56 Data reviewed: vital signs, nurses notes. Counseling: I had a detailed discussion with kdr the patient and/or guardian regarding: the historical points, exam findings, and any diagnostic results supporting the discharge/admit diagnosis, lab results, the need for outpatient follow up. Physician consultation: Annie Almeida MD regarding consult, patient's condition, and will see patient in office, immediately. 09/13 10:27 Order name: CBC with Diff; Complete Time: 11:49 kdr 09/13 10: Order name: Chem 7; Complete Time: 11:49 kdr 09/13 10: Order name: PT-INR; Complete Time: 11:49 kdr Administered Medications: 12:40 Drug: Potassium Chloride 20 mEq Route: IV; Rate: calculated rate; Site: right forearm; jl7 13:20 Follow up: Response: No adverse reaction; IV Status: Order to discontinue infusion jl7 13:00 Drug: Potassium Chloride 20 mEq Route: PO; jl7 13:20 Follow up: Response: No adverse reaction jl7 Disposition: 09/13/20 13:04 Discharged to Home. Impression: Epistaxis - Left nare. - Condition is Fair. - Discharge Instructions: Nosebleed, [id number]. - Medication Reconciliation Form, Thank You Letter, Antibiotic Education, Prescription Opioid Use form. - Follow up: Annie Almeida MD; When: Upon discharge from the Emergency Department; Reason: If symptoms return, Further diagnostic work-up, Recheck today's complaints, Continuance of care, Re-evaluation by your physician. - Notes: Follow-up in Dr. Almeida's office immediately. Signatures: Dispatcher [employer] EDMS Andrew Jang MD MD kdr James Henson RN RN jl7 Corrections: (The following items were deleted from the chart) 13:21 13:04 09/13/2020 13:04 Discharged to Home. Impression: Epistaxis - Left nare. Condition jl7 is Fair. Discharge Instructions: Nosebleed, [id number]. Forms are Medication Reconciliation Form, Thank You Letter, Antibiotic Education, Prescription Opioid Use. Follow up: Annie Almeida; When: Upon discharge from the Emergency Department; Reason: If symptoms return, Further diagnostic work-up, Recheck today's complaints, Continuance of care, Re-evaluation by your physician. kdr
[2020-09-13] MEDS ORDERED: POTASSIUM CL SA 10 MEQ TAB PO ONE (13:12)
[2020-09-13 14:08] VITALS: O2SAT 98
[2020-09-13 14:09] VITALS: BP 184/77
== END 2020-09-13 13:21 | disposition home or self-care (01) ==
LOC: ER 09:47
PROC: 2Y41X5Z Packing of Nasal Region using Packing Material (ICD-10-PCS; principal; 2020-09-13)
DX: R04.0 Epistaxis (principal); I10 Essential (primary) hypertension; E78.00 Pure hypercholesterolemia, unspecified; E11.9 Type 2 diabetes mellitus without complications; I50.9 Heart failure, unspecified; Z79.82 Long term (current) use of aspirin; Z88.0 Allergy status to penicillin; Z86.73 Personal history of transient ischemic attack (TIA), and cerebral infarction without residual deficits; Z91.048 Other nonmedicinal substance allergy status
CPT/HCPCS: 30901; 36415; 80048; 85025; 85610; 96365; 99284; J3480; J7050

== ENCOUNTER 2020-09-14 21:13 | Inpatient (IN) | payer OTHER ==
[2020-09-14 21:42] LABS: Absolute Lymphocytes (CBC) 2.7 K/uL (0.7-4.9); Basophils % 0.7 % (0-1.3); Hematocrit 35.1 % (39.6-49.0); Lymphocytes % 12.8 % (15.3-44.8); MPV 9.9 fL (7.6-11.3); RBC Red Blood Cell Count 3.84 M/uL (4.33-5.43)
[2020-09-14 21:46] LABS: Protime INR 1.09
[2020-09-14] MEDS ORDERED: NA CHLORIDE 0.9% 500 ML ONE ×3 (21:48→23:46)
[2020-09-14 22:12] LABS: BUN Blood Urea Nitrogen 30 mg/dL (7-18); Bicarbonate 27 mmol/L (21-32); Glucose Level 179 mg/dL (74-106); Magnesium 2.2 mg/dL (1.8-2.4); Sodium Level 141 mmol/L (136-145); Troponin (Emerg Dept Use Only) 1.19 ng/mL (0.0-0.045)
--- NOTE | 2020-09-14 23:20 | ER ---
Nurse's Notes [facility] Name: Miguel Baxter Age: 75 yrs Sex: Male : 1945 Arrival Date: 09/14/2020 Time: 21:20 Bed 5 Private MD: Diagnosis: Dehydration;Orthostatic hypotension;Syncope and collapse Presentation: 09/14 21:21 Chief complaint: EMS states: they were toned out for report of pt having a near bb syncopal episode at home pt became faint family member helped him down on arrival pt's BP was 84/56 they started an IV and initiated fluid administration. Coronavirus screen: At this time, the client does not indicate any symptoms associated with coronavirus-19. Ebola Screen: No symptoms or risks identified at this time. Initial Sepsis Screen: Does the patient meet any 2 criteria? No. Patient's initial sepsis screen is negative. Does the patient have a suspected source of infection? No. Patient's initial sepsis screen is negative. Risk Assessment: Do you want to hurt yourself or someone else? Patient reports no desire to harm self or others. Onset of symptoms was September 14, 2020. 21:21 Method Of Arrival: EMS: [facility] bb 21:21 Acuity: JANAY 2 bb Triage Assessment: 21:29 General: Appears comfortable, Behavior is calm, cooperative. Pain: Denies pain. Neuro: rv Level of Consciousness is awake, alert, obeys commands, Oriented to person, place, time, situation. Cardiovascular: Patient's skin is warm and dry. Respiratory: Airway is patent Respiratory effort is even, unlabored, Breath sounds are clear bilaterally. Derm: Skin is intact. Historical: - Allergies: 21:28 Iodine; bb 21:28 PENICILLINS; bb - Home Meds: 21:28 aspirin 81 mg Oral chew 1 tab once daily [Active]; atorvastatin 80 mg oral tab 1 tab bb once daily [Active]; nifedipine 90 mg Oral TbER 1 tab once daily [Active]; clindamycin HCl 300 mg Oral cap 2 caps every 6 hours [Active]; thiamine HCl (vitamin B1) 100 mg Oral tab daily [Active]; sertraline 100 mg Oral tab 1 tab once daily [Active]; folic acid 1 mg Oral tab 1 tab once daily [Active]; losartan 100 mg oral tab 1 tab once daily [Active]; clopidogrel 75 mg oral tab 1 tab once daily [Active]; - PMHx: 21:28 CHF; CVA; Diabetes; High Cholesterol; Hypertension; Tumor; bb - Immunization history:: Adult Immunizations up to date. - Social history:: Smoking status: Patient reports the use of cigarette tobacco products, smokes one pack cigarettes per day. - Family history:: not pertinent. - Hospitalizations: : Patient was recently seen at. Screenin:28 Abuse screen: Denies threats or abuse. Denies injuries from another. Nutritional rv screening: No deficits noted. Tuberculosis screening: No symptoms or risk factors identified. Fall Risk Fall in past 12 months (25 points). Secondary diagnosis (15 points) impaired mobility, IV access (20 points). Ambulatory Aid- Crutches/Cane/Walker (15 pts). Gait- Weak (10 pts.). Mental Status- Oriented to own ability (0 pts). Total Pitts Fall Scale indicates High Risk Score (45 or more points). Fall prevention measures have been instituted. Side Rails Up X 2 Frequent Obs/Assessments Occuring Family Present and informed to notify staff if the need to leave the bedside As available patient and family educated on Fall Prevention Program and Strategies. Assessment: 21:30 General: Appears in no apparent distress. comfortable, Behavior is calm, cooperative. mg2 Pain: Denies pain. Neuro: Level of Consciousness is awake, alert, obeys commands, Reports dizziness. Cardiovascular: Capillary refill < 3 seconds Patient's skin is warm and dry. Respiratory: Airway is patent Respiratory effort is even, unlabored, Respiratory pattern is regular, symmetrical. GI: No signs and/or symptoms were reported involving the gastrointestinal system. : No signs and/or symptoms were reported regarding the genitourinary system. EENT: No signs and/or symptoms were reported regarding the EENT system. Derm: Skin is intact, is healthy with good turgor, Skin is pink, warm \T\ dry. normal. Musculoskeletal: Circulation, motion, and sensation intact. Capillary refill < 3 seconds. 22:30 Reassessment: Patient appears in no apparent distress at this time. Patient and/or mg2 family updated on plan of care and expected duration. Pain level reassessed. Patient is alert, oriented x 3, equal unlabored respirations, skin warm/dry/pink. 23:30 Reassessment: Patient appears in no apparent distress at this time. Patient and/or mg2 family updated on plan of care and expected duration. Pain level reassessed. Patient is alert, oriented x 3, equal unlabored respirations, skin warm/dry/pink. Vital Signs: 21:21 BP 104 / 56; Pulse 69; Resp 14 S; Temp 97.9(TE); Pulse Ox 99% on R/A; Weight 63.5 kg bb (R); Height 5 ft. 9 in. (175.26 cm) (R); Pain 0/10; 22:19 BP 104 / 56 RA Supine; Pulse 66; Resp 18; Pulse Ox 99% on R/A; mg2 22:22 BP 109 / 56 RA Sitting; Pulse 68; Resp 18; Pulse Ox 99% on R/A; mg2 22:24 BP 91 / 57 RA Standing; Pulse 73; Resp 18; Pulse Ox 99% on R/A; mg2 23:15 BP 118 / 76; Pulse 70; Resp 18; Pulse Ox 99% on R/A; mg2 09/15 00:07 BP 117 / 63; Pulse 73; Resp 17; Pulse Ox 99% on R/A; mg2 09/14 21:21 Body Mass Index 20.67 (63.50 kg, 175.26 cm) bb ED Course: 09/14 21:20 Patient arrived in ED. bb 21:21 Mayco Soto MD is Attending Physician. rn 21:24 Triage completed. bb 21:28 Shree Gtz RN is Primary Nurse. rv 21:28 Maintain EMS IV. Dressing intact. Good blood return noted. Site clean \T\ dry. Gauge \T\ rv site: G20 LEFT FOREARM. 21:28 Arm band placed on Patient placed in an exam room, on a stretcher, on silk spreader, bb on pulse oximetry. 21:29 Patient has correct armband on for positive identification. Placed in gown. Bed in low rv position. Call light in reach. Side rails up X2. jigman on. Pulse ox on. NIBP on. 21:45 First set of blood cultures drawn by ED staff. rv 21:53 Inserted saline lock: 20 gauge in left antecubital area, using aseptic technique. Blood rv collected. 21:53 Second set of blood cultures drawn by me. rv 22:07 CT Head Brain wo Cont In Process Unspecified. EDMS 23:02 XRAY Chest (1 view) In Process Unspecified. EDMS 23:16 No provider procedures requiring assistance completed. Patient admitted, IV remains in mg2 place. 23:19 Blayne Bobby is Hospitalizing Provider. rn 09/15 00:15 IV is patent, with fluids infusing freely, with good blood return. rv 00:27 covid swab sent. mg2 Administered Medications: 09/14 21:37 Drug: NS 0.9% 500 ml Route: IV; Rate: bolus; Site: left forearm; mg2 23:18 Follow up: Response: No adverse reaction; IV Status: Completed infusion; IV Intake: mg2 500ml 22:44 Drug: NS 0.9% 500 ml Route: IV; Rate: bolus; Site: left forearm; mg2 23:27 Follow up: Response: No adverse reaction; IV Status: Completed infusion; IV Intake: mg2 500ml 23:26 Drug: Potassium Chloride 10 mEq Route: IV; Rate: calculated rate; Site: left forearm; mg2 09/15 00:16 Follow up: IV Status: Infusion continued upon admission rv 09/14 23:27 Drug: Aspirin Chewable Tablet 324 mg Route: PO; mg2 09/15 00:16 Follow up: Response: No adverse reaction rv Intake: 09/14 23:18 IV: 500ml; Total: 500ml. mg2 23:27 IV: 500ml; Total: 1000ml. mg2 Outcome: 23:19 Decision to Hospitalize by Provider. rn 09/15 00:15 Admitted to Med/surg accompanied by tech, room 207, Other SBAR, EKG Report called to lizzy HEATH RN Condition: good Instructed on the need for admit. 00:40 Patient left the ED. tt3 Signatures: Dispatcher [employer] EDMS Kamilah Porter RN RN bb Mayco Soto MD MD rn Gardose, Michele, RN RN mg2 Shree Gtz RN RN rv Trim, Tyler tt3
--- NOTE | 2020-09-14 23:20 | EDPHYS ---
Physician Documentation [facility] Name: Miguel Baxter Age: 75 yrs Sex: Male : 1945 Arrival Date: 09/14/2020 Time: 21:20 Bed 5 Private MD: ED Physician Mayco Soto HPI: 09/14 22:41 This 75 yrs old Male presents to ER via EMS with complaints of Near Syncope, rn Blood Pressure Problem. 22:41 The patient has experienced syncope. Onset: The symptoms/episode began/occurred just rn prior to arrival. Duration: This was a single episode. Associated signs and symptoms: Pertinent positives: dizziness, lightheadedness. Current symptoms: Currently, the patient is not experiencing any symptoms. The patient has experienced similar episodes in the past. Son reports assisting him to ambulate, got lightheaded, went down to ground, unclear if lost consciousness or not, patient does not recall all events, son reports able to talk to him while on ground, no seizure activity. Joey not complain of chest pain/sob/abd pain. Recently seen at [facility] for nose bleed, told had nasal/sinus mass, possible cancer, was packed, no longer bleeding and placed on abx. No injury from syncopal episode today. . Historical: - Allergies: 21:28 Iodine; bb 21:28 PENICILLINS; bb - Home Meds: 21:28 aspirin 81 mg Oral chew 1 tab once daily [Active]; atorvastatin 80 mg oral tab 1 tab bb once daily [Active]; nifedipine 90 mg Oral TbER 1 tab once daily [Active]; clindamycin HCl 300 mg Oral cap 2 caps every 6 hours [Active]; thiamine HCl (vitamin B1) 100 mg Oral tab daily [Active]; sertraline 100 mg Oral tab 1 tab once daily [Active]; folic acid 1 mg Oral tab 1 tab once daily [Active]; losartan 100 mg oral tab 1 tab once daily [Active]; clopidogrel 75 mg oral tab 1 tab once daily [Active]; - PMHx: 21:28 CHF; CVA; Diabetes; High Cholesterol; Hypertension; Tumor; bb - Immunization history:: Adult Immunizations up to date. - Social history:: Smoking status: Patient reports the use of cigarette tobacco products, smokes one pack cigarettes per day. - Family history:: not pertinent. - Hospitalizations: : Patient was recently seen at. ROS: 22:41 Constitutional: Negative for fever, chills, and weight loss, Eyes: Negative for injury, rn pain, redness, and discharge, ENT: Negative for injury, pain, and discharge, Cardiovascular: Negative for chest pain, palpitations, and edema, Respiratory: Negative for shortness of breath, cough, wheezing, and pleuritic chest pain, Abdomen/GI: Negative for abdominal pain, nausea, vomiting, diarrhea, and constipation, MS/Extremity: Negative for injury and deformity, Skin: Negative for injury, rash, and discoloration, Neuro: Negative for headache, numbness, tingling, and seizure. Exam: 22:41 Constitutional: Thin male, appears generally weak, no acute distress Head/Face: rn Normocephalic, atraumatic. ENT: Dry MM Cardiovascular: Regular rate and rhythm. No pulse deficits. Respiratory: No increased work of breathing, no retractions or nasal flaring. Abdomen/GI: Soft, non-tender Skin: Warm, dry MS/ Extremity: Pulses equal, no cyanosis. Neuro: Awake and alert, GCS 15, oriented to person, place, and situation. Motor strength 4/5 in all 4 extremities, slow to respond but clear speech, sensation intact. 23:21 ECG was reviewed by the Attending Physician. rn Vital Signs: 21:21 BP 104 / 56; Pulse 69; Resp 14 S; Temp 97.9(TE); Pulse Ox 99% on R/A; Weight 63.5 kg bb (R); Height 5 ft. 9 in. (175.26 cm) (R); Pain 0/10; 22:19 BP 104 / 56 RA Supine; Pulse 66; Resp 18; Pulse Ox 99% on R/A; mg2 22:22 BP 109 / 56 RA Sitting; Pulse 68; Resp 18; Pulse Ox 99% on R/A; mg2 22:24 BP 91 / 57 RA Standing; Pulse 73; Resp 18; Pulse Ox 99% on R/A; mg2 23:15 BP 118 / 76; Pulse 70; Resp 18; Pulse Ox 99% on R/A; mg2 09/15 00:07 BP 117 / 63; Pulse 73; Resp 17; Pulse Ox 99% on R/A; mg2 09/14 21:21 Body Mass Index 20.67 (63.50 kg, 175.26 cm) bb MDM: 10/21 21:21 Patient medically screened. rn 23:17 Differential Diagnosis: cardiac arrhythmia, cerebrovascular accident, idiopathic rn syncope, vasovagal episode, anemia, orthostatic hypotension, AMI. Data reviewed: vital signs, nurses notes, lab test result(s), EKG, radiologic studies, CT scan, plain films, and as a result, I will admit patient. Counseling: I had a detailed discussion with the patient and/or guardian regarding: the historical points, exam findings, and any diagnostic results supporting the discharge/admit diagnosis, lab results, radiology results, the need for further work-up and treatment in the hospital. Response to treatment: the patient's symptoms have markedly improved after treatment, and as a result, I will admit patient. Admission orders: after a detailed discussion of the patient's condition and case, the admit orders are written by me. ED course: Pt with elevated troponin, lateral deep twave inversions, denies chest pain or sob, but will admit for cardiology eval as cause of syncope. Elevated WBC, packing does not seem infected, and on abx. . 09/14 21:31 Order name: Basic Metabolic Panel; Complete Time: 22:17 rn 09/14 21:31 Order name: CBC with Diff; Complete Time: 23:53 rn 09/14 21:31 Order name: Magnesium; Complete Time: 22:17 rn 09/14 21:31 Order name: Protime (+inr); Complete Time: 22:17 rn 09/14 21:31 Order name: Ptt, Activated; Complete Time: 22:17 09/14 21:31 Order name: Troponin (emerg Dept Use Only); Complete Time: 22:17 rn 09/14 21:31 Order name: CT Head Brain wo Cont rn 09/14 21:46 Order name: Blood Culture Adult (2) rn 09/14 21:46 Order name: Procalcitonin; Complete Time: 22:35 rn 09/14 21:46 Order name: Lactate; Complete Time: 22:35 rn 09/14 22:17 Order name: XRAY Chest (1 view) rn 09/14 22:38 Order name: Manual Differential; Complete Time: 23:53 EDMS 09/15 00:01 Order name: COVID-19 mg2 09/15 00:33 Order name: Urine Dipstick--Ancillary (enter results) tt3 09/14 21:31 Order name: EKG; Complete Time: : rn 09/14 21:31 Order name: Cardiac monitoring; Complete Time: : rn 09/14 21:31 Order name: EKG - Nurse/Tech; Complete Time: : rn 09/14 21:31 Order name: IV Saline Lock; Complete Time: : rn 09/14 21:31 Order name: Labs collected and sent; Complete Time: : rn 09/14 21:31 Order name: NPO; Complete Time: : rn 09/14 21:31 Order name: O2 Per Protocol; Complete Time: : rn 09/14 21:31 Order name: O2 Sat Monitoring; Complete Time: rn 09/14 21:31 Order name: Urine Dipstick-Ancillary (obtain specimen); Complete Time: 00:27 rn 09/14 22:22 Order name: Orthostatic Blood Pressure; Complete Time: 22:22 mg2 EC: Rate is 68 beats/min. Rhythm is regular. QRS is positive in lead I and negative in lead rn aVF. IL interval is normal. QRS interval is normal. QT interval is prolonged at 612 msec. No Q waves. T waves are Inverted in leads V4, V5, V6. No ST changes noted. Clinical impression: NSR w/ Non-specific ST/T Changes and Prolonged QT. Interpreted by me. Reviewed by me. Administered Medications: 21:37 Drug: NS 0.9% 500 ml Route: IV; Rate: bolus; Site: left forearm; mg2 23:18 Follow up: Response: No adverse reaction; IV Status: Completed infusion; IV Intake: mg2 500ml 22:44 Drug: NS 0.9% 500 ml Route: IV; Rate: bolus; Site: left forearm; mg2 23:27 Follow up: Response: No adverse reaction; IV Status: Completed infusion; IV Intake: mg2 500ml 23:26 Drug: Potassium Chloride 10 mEq Route: IV; Rate: calculated rate; Site: left forearm; mg2 09/15 00:16 Follow up: IV Status: Infusion continued upon admission rv 09/14 23:27 Drug: Aspirin Chewable Tablet 324 mg Route: PO; mg2 09/15 00:16 Follow up: Response: No adverse reaction rv Disposition: 09/14/20 23:19 Hospitalization ordered by Blayne Bobby for Inpatient Admission. Preliminary diagnosis are Dehydration, Orthostatic hypotension, Syncope and collapse. - Bed requested for Telemetry/MedSurg (Inpatient). - Status is Inpatient Admission. tt3 - Condition is Stable. - Problem is new. - Symptoms have improved. Signatures: Dispatcher [employer] EDMS Kamilah Porter RN RN bb Mayco Soto MD MD rn Roszak, Josh, PA PA jr8 Ledy Bliss RN RN tl1 Sher Lyn RN RN mg2 Mikal, Jordan tt3 Shree Gtz RN rv Corrections: (The following items were deleted from the chart) 00:06 09/14 23:19 Hospitalization Ordered by Blayne Bobby for Inpatient Admission. tl1 Preliminary diagnosis is Dehydration; Orthostatic hypotension; Syncope and collapse. Bed requested for Telemetry/MedSurg (Inpatient). Status is Inpatient Admission. Condition is Stable. Problem is new. Symptoms have improved. rn 09/15 00:40 00:06 09/14/2020 23:19 Hospitalization Ordered by Blayne Bobby for Inpatient tt3 Admission. Preliminary diagnosis is Dehydration; Orthostatic hypotension; Syncope and collapse. Bed requested for Telemetry/MedSurg (Inpatient). Status is Inpatient Admission. Condition is Stable. Problem is new. Symptoms have improved. tl1
[2020-09-14 23:21] LABS: Blood Morphology Comment NOT SEEN (NOT SEEN); Platelet Estimate ADEQ
[2020-09-14] MEDS ORDERED: ASPIRIN 81 MG CHEWABLE TABLET ONE (23:36)
[2020-09-14] MEDS ORDERED: KCL 20 MEQ/100 mL IVPB 20 MEQ/100 ML BAG IV ONE (23:37)
[2020-09-15] MEDS ORDERED: ACETAMINOPHEN 500 MG TAB PO PRN (00:40)
[2020-09-15] MEDS ORDERED: ONDANSETRON 4 MG/2 ML VIAL IV PRN (00:40)
[2020-09-15 01:10] VITALS: BMI 17.3
[2020-09-15 01:27] LABS: Urine Blood NEGATIVE (NEG); Urine Glucose TRACE (NEG); Urine Protein NEGATIVE (NEG); Urine Specific Gravity 1.015 (1.005-1.030)
--- NOTE | 2020-09-15 01:29 | P.HP ---
Certification for Inpatient Patient admitted to: Observation With expected LOS: <2 Midnights Patient will require the following post-hospital care: None Practitioner: I am a practitioner with admitting privileges, knowledge of patient current condition, hospital course, and medical plan of care. Services: Services provided to patient in accordance with Admission requirements found in Title 42 Section 412.3 of the Code of Federal Regulations <Robin Dubois - Last Filed: 09/15/20 01:23> Patient History Date of Service: 09/15/20 Primary Care Provider: OOT Reason for admission: Orthostatic Hypotension, Hypokalemia, Near Syncope, ECG changes History of Present Illness: This is a 75-year-old male that came to the emergency room tonight after having a near syncopal episode at home. EMS was called by family and was found to be hypotensive upon arrival. Patient stated that for the past month he has been more weak and fatigued. Was admitted to the hospital for CVA like symptoms last week and was discharged without acute cerebral infarction finding. Patient had MRI and echocardiogram completed at that time along with carotids. No significant findings at that time. Patient then was seen for new onset of epistaxis earlier this week. 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. Patient currently packed and on antibiotics at this time for this but without any acute change in event. Patient stated that 3 days ago he had a short bout of chest pain that lasted for about 10 min. I did not think anything of it at that time. Today he in the emergency room patient had positive orthostatics changes along with EKG changes in the anterior lateral leads. No ST elevation or significant ischemia noted. Large T-wave inversion was noted. CT of the head was ordered at that time but did not find any acute hemorrhage. Patient did I will also have elevation in his troponin at 1.0. Currently without shortness of breath, chest tightness, nausea, dizziness. Patient also found to be hypokalemic. H and H were within normal limits. Medicine was consulted at that time the patient will be admitted for orthostatic hypotension and abnormal EKG with troponin elevation. Home medications list reviewed: Yes - Past Medical/Surgical History Has patient received pneumonia vaccine in the past: Yes Diabetic: No -: Hypertension -: Hyperlipidemia -: Enlarged prostate -: Skin carcinoma (right ear) -: GERD -: Tobacco abuse -: History of CVA -: PVD -: History of AAA repair -: History of lower extremity stents -: AAA repair -: bilateral femoral stent Psychosocial/ Personal History: Patient lives by himself but son takes care of him there. - Family History Mother -: Diabetes Notes: thyroid problem Father -: Heart disease Brother -: Hypertension Sister -: Hypertension Notes: thyroid problem - Social History Smoking Status: Current every day smoker Smoking therapy provided: Yes Alcohol use: No CD- Drugs: No Caffeine use: No Place of Residence: Home <oRbin Dubois - Last Filed: 09/15/20 01:23> Date of Service: 09/15/20 <sari olsen - Last Filed: 09/15/20 07:22> Allergies iodine Allergy (Intermediate, Verified 02/15/20 23:31) Hives Penicillins Allergy (Unknown, Verified 02/15/20 03:20) unknown fire ant Allergy (Verified 09/15/20 01:00) Rash shellfish derived Allergy (Verified 09/15/20 01:00) Anaphylaxis Home Medications: Aspirin Chewable [Aspirin Chewable*] 81 mg PO DAILY 09/15/20 Atorvastatin Calcium [Lipitor] 80 mg PO DAILY 09/15/20 Clopidogrel Bisulfate [Plavix*] 75 mg PO DAILY 09/15/20 Folic Acid 1 mg PO DAILY 09/15/20 Nifedipine [Procardia Xl] 90 mg PO BEDTIME 09/15/20 Sertraline HCl 100 mg PO DAILY 09/15/20 Thiamine HCl 100 mg PO DAILY 09/15/20 clindamycin HCL [Clindamycin HCl] 300 mg PO Q6H 09/15/20 Review of Systems General: Weakness, Malaise Eyes: Unremarkable ENT: As per HPI Respiratory: Unremarkable Cardiovascular: As per HPI Gastrointestinal: Unremarkable Genitourinary: Unremarkable Musculoskeletal: Unremarkable Integumentary: Unremarkable Neurological: Weakness Lymphatics: Unremarkable <Robin Dubois - Last Filed: 09/15/20 01:23> Physical Examination - Vital Signs Temperature: 98.2 F Blood Pressure: 133/68 Pulse: 75 Respirations: 18 Pulse Ox (%): 96 - Physical Exam General: Alert, In no apparent distress, Oriented x3 HEENT: Normocephalic, PERRLA, Mucous membr. moist/pink, Other (Packing placed to the left [place]. No epistaxis at this time.), EOMI Neck: Supple, 2+ carotid pulse no bruit, JVD not distended, No Thyromegaly Respiratory: Clear to auscultation bilaterally, Normal air movement Cardiovascular: No edema, Normal pulses, Regular rate/rhythm, Systolic murmur (Grade 2 in 6 systolic murmur present over the aortic area) Capillary refill: <2 Seconds Gastrointestinal: Normal bowel sounds, Soft and benign, Non-distended, No ascites, No tenderness, No masses, No rebound, No guarding Musculoskeletal: No clubbing, No swelling, No contractures, No erythema, No tenderness, No warmth Integumentary: No rashes, No breakdown, No significant lesion, No tend erness/swelling, No erythema, No warmth, No cyanosis Neurological: Normal speech, Normal strength at 5/5 x4 extr, Normal tone, Sensation intact, Cranial nerves 3-12 intact, Normal affect Lymphatics: No axilla or inguinal lymphadenopathy - Studies Laboratory Data (last 24 hrs) 09/14/20 21:30: PT 12.8 H, INR 1.09, APTT 24.0 L 09/14/20 21:30: WBC 21.0 H* D, Hgb 12.2 L, Hct 35.1 L, Plt Count 211 09/14/20 21:30: Sodium 141, Potassium 3.0 L, BUN 30 H, Creatinine 0.76, Glucose 179 H, Magnesium 2.2 <Robin Dubois - Last Filed: 09/15/20 01:23> - Studies Laboratory Data (last 24 hrs) 09/14/20 21:30: PT 12.8 H, INR 1.09, APTT 24.0 L 09/14/20 21:30: WBC 21.0 H* D, Hgb 12.2 L, Hct 35.1 L, Plt Count 211 09/14/20 21:30: Sodium 141, Potassium 3.0 L, BUN 30 H, Creatinine 0.76, Glucose 179 H, Magnesium 2.2 <sari olsen - Last Filed: 09/15/20 07:22> Assessment and Plan - Problems (Diagnosis) (1) Orthostatic hypotension Current Visit: Yes Status: Acute Plan: Patient will have continued fluids for the next 24 hr and will be reassessed and have repeat orthostatics changes in the morning to see if patient is no longer hypotensive when standing up. Patient's blood pressure medicines will be held as well until patient's BP normalizes. Reconciliation of his medications to ensure they are not causing severe hypotension will also be addressed. (2) Hypokalemia Current Visit: Yes Status: Acute Plan: Patient has mild to moderate hypokalemia present. Patient will be put on potassium protocol and potassium will be replaced. (3) Abnormal ECG Current Visit: Yes Status: Acute Plan: Repeat ECG will be completed. Cardiology will be consulted for abnormal ECG and elevation in troponin. (4) Elevated troponin Current Visit: Yes Status: Acute Plan: Patient had elevation in troponin. Currently without chest pain, shortness of breath or angina equivalent. Will reassess stroke that night and have serial troponins completed. Cardiology will be consulted as well. Recent echo as of last week to showed mild aortic insufficiency without decrease in LVEF. There was no wall motion abnormalities at that time as well. (5) Near syncope Current Visit: Yes Status: Acute Plan: Patient is nursing to be was most likely related to orthostatic changes. Patient will be hydrated throughout the night and reassess in the morning for stability. Discharge Plan: Home Plan to discharge in: 24 Hours - Advance Directives Does patient have a Living Will: Yes Does patient have a Durable POA for Healthcare: Yes Critical Care: No Time Spent Managing Pts Care (In Minutes): 45 <Robin Dubois - Last Filed: 09/15/20 01:23> Physician Review: Patient Assessed, Agree with Above Assessment and Plan Physician Review Additional Text: Cardiology consult ASA, Plavix. No anticoagulation given epistaxis. Antibiotics. <sari olsen - Last Filed: 09/15/20 07:22>
[2020-09-15] MEDS: NA CHLORIDE 0.9% 1,000 ML IV SCH ×3 (01:43→13:14)
[2020-09-15] MEDS: NICOTINE 21 MG/PAT TD SCH ×2 (01:43→09:42)
[2020-09-15 05:45] LABS: Absolute Lymphocytes (CBC) 2.5 K/uL (0.7-4.9); Basophils % 0.4 % (0-1.3); Hematocrit 32.8 % (39.6-49.0); MPV 9.8 fL (7.6-11.3); RBC Red Blood Cell Count 3.62 M/uL (4.33-5.43)
[2020-09-15 06:05] LABS: BUN Blood Urea Nitrogen 16 mg/dL (7-18); Bicarbonate 29 mmol/L (21-32); Glucose Level 133 mg/dL (74-106); Sodium Level 145 mmol/L (136-145)
[2020-09-15 06:07] LABS: Potassium 2.6 mmol/L (3.5-5.1)
[2020-09-15] MEDS: KCL 20 MEQ/100 mL IVPB 20 MEQ/100 ML BAG IV SCH ×3 (06:43→11:38)
--- NOTE | 2020-09-15 07:25 | EKG ---
Test Date: 2020-09-14 Test Time: 21:22:28 [employer] Ac[employer] Lead: MEASUREMENT RESULTS: Intervals: Rate: 68 HI: 206 QRSD: 88 QT: 576 QTc: 612 Downey: P: 92 HI: 206 QRS: -67 T: 244 INTERPRETIVE STATEMENTS: Normal sinus rhythm Left anterior fascicular block Anterior infarct, age undetermined ST & Marked T wave abnormality, consider inferolateral ischemia Prolonged QT Abnormal ECG Compared to ECG 09/08/2020 10:23:49 Left anterior fascicular block now present T-wave abnormality now present Possible ischemia now present Prolonged QT interval now present Sinus bradycardia no longer present First degree AV block no longer present Left-axis deviation no longer present Myocardial infarct finding still present Electronically Signed On 09-15-20 07:24:43 CDT by Tobi Vela
--- NOTE | 2020-09-15 08:11 | RAD REPORT ---
EXAM DESCRIPTION: Mary Lout Single View09/14/2020 11:03 pm CLINICAL HISTORY: Syncope COMPARISON: September 08, 2020 FINDINGS: The lungs appear clear of acute infiltrate. The heart is mildly enlarged. Aorta is tortuous/ectatic IMPRESSION: No acute abnormalities displayed
[2020-09-15] MEDS: FOLIC ACID 1 MG TABLET PO SCH (09:42)
[2020-09-15] MEDS: ASPIRIN EC 81 MG TAB PO SCH (09:42)
[2020-09-15] MEDS: ATORVASTATIN 80 MG TAB PO SCH (09:42)
[2020-09-15] MEDS: CLOPIDOGREL 75 MG TABLET PO SCH (09:42)
[2020-09-15] MEDS: THIAMINE HCL 100 MG TABLET PO SCH (09:43)
[2020-09-15] MEDS: SERTRALINE HCL 100 MG TAB PO SCH (09:43)
--- NOTE | 2020-09-15 10:49 | CON ---
Date of Consultation: 09/15/2020 Reason For Consultation: Orthostatic hypotension. History Of Present Illness: Mr. Baxter is a 75-year-old male, has a history of congestive heart jose lure, CVA, diabetes, hypertension, dyslipidemia. He was recently in the hospital for syncope, possib le CVA, underwent extensive cardiac workup including echos, carotid MRA all of which was negative. Rosa haas came in with orthostatic hypotension, near syncope, had chest pain 3 days ago that is very minimal, sharp, stabbing that resolved in seconds. Presently, he is not having any symptoms. He has been tr eated for infection of some kind. He has a white count of 19,000. His potassium was 3. His troponi n was 1.19. This may be secondary to sepsis. No plan for coronary intervention. Not an acute coron trish syndrome. The patient is not having any chest pain right now. He denied any shortness of breath , PND, orthopnea, pedal edema, or palpitations. Past Medical History: As stated above. Allergies: TO IODINE, PENICILLIN, SHELLFISH AND FIRE ANTS. Review of Systems: Negative. Social History: Negative. Family History: Noncontributory. Medications: At home include aspirin, Lipitor, Plavix, Procardia, hydralazine and losartan. Physical Examination: General: He was eating. Sinus rhythm. Afebrile. No acute distress. No chest pain. He was pleasa nt. His son was present in the room. Vital signs: Stable, afebrile. HEENT: Negative. Neck: Supple with no bruit. Chest: Clear. Cardiac: Revealed a regular rhythm and rate. No murmurs, gallops, or rubs. Abdomen: Benign. Extremities: Revealed no clubbing, cyanosis, or edema. Skin: Dry and intact. Vascular: Pulses were present distally bilaterally. Diagnostic Data: As stated earlier. Impression And Plan: Near-syncope secondary to possible sepsis with elevated white count of 19,000. He is on antibiotics and is improving. He is not having chest pain. His chest pain few days ago wa s atypical, pleuritic. His troponin elevation is secondary to sepsis, not an acute coronary syndrome . No plan for intervention. Recent cardiovascular workup including echo and carotid MRAs were all w ithin normal limit. I have no intention of doing any further cardiac workup on him in the near futur e. I think he can go home whenever it is okay with Dr. Bobby. 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 I would continue his present regimen. His other problems including chronic diastoli c congestive heart failure, history of cerebrovascular accident, diabetes, hypertension, dyslipidemia , all of that is stable at this point. He needs his potassium supplemented. He needs to be treated with antibiotics and hydrated and he can be discharged whenever it is okay with Dr. Bobby. He follo ws up at the [facility]. CHARISSA/CARISSA Voice ID: [id number] Report ID: [id number]
--- NOTE | 2020-09-15 10:57 | RAD REPORT ---
EXAM DESCRIPTION: CT - Head Brain Wo Cont - 09/15/2020 6:55 am CLINICAL HISTORY: 75-year-old male with syncope COMPARISON: None. TECHNIQUE: CT brain without contrast. This exam was performed according to our departmental dose opt imization program which includes use of automated exposure control, adjustment of the mA and/or kV ac cording to patient size and/or use of iterative reconstruction technique. FINDINGS: Multifocal regions of patchy hypoattenuation are present in a subcortical and periventricular deep wh ite matter distribution, nonspecific; however, most likely represent small vessel ischemic disease, a ge indeterminate. Subcentimeter hypoattenuation within the bilateral basal ganglia stable in compar jacob to the previous examination compatible with sequela of prior infarction. Small volume of gliosis and encephalomalacia the level of the RIGHT occipital lobe compatible with se quela of prior infarction. The ventricles, and sulci are enlarged compatible with underlying volume loss. The roberts-white matte r differentiation is preserved. There is no mass effect, midline shift, intra- or extra-axial fluid collection/acute hemorrhage. The osseous structures are unremarkable. The paranasal sinuses and mastoid air cells are clear. IMPRESSION: 1. No acute intracranial abnormalities. Nonspecific white matter change most likely sm all vessel ischemic disease, age indeterminate. 2. CT is insensitive for early evaluation of acute stroke. If there is clinical concern for acute ischemia, an MRI may be considered. Electronically signed by: Ranjana Rodriguez MD 09/14/2020 10:20 PM CDT Due to temporary technical issues with the PACS/Fluency reporting system, reports are being signed by the in house radiologist without review as a courtesy to ensure prompt reporting. The interpreting r adiologist is fully responsible for the content of the report.
--- NOTE | 2020-09-15 11:14 | P.PN ---
Subjective Date of Service: 09/15/20 Primary Care Provider: AUDRA Chief Complaint: Orthostatic Hypotension, Hypokalemia, Near Syncope, ECG changes Patient denies any complain. No epistaxis. Nasal packing is in place. Vitals are stable. Patient has significant leukocytosis. Physical Examination - Vital Signs Temperature: 97.8 F Blood Pressure: 158/73 Pulse: 71 Respirations: 16 Pulse Ox (%): 97 - Physical Exam General: Alert, In no apparent distress HEENT: Mucous membr. moist/pink Neck: Supple, JVD not distended Respiratory: Clear to auscultation bilaterally, Normal air movement Cardiovascular: No edema, Regular rate/rhythm, Normal S1 S2 Gastrointestinal: Normal bowel sounds, Soft and benign, No tenderness Musculoskeletal: No swelling, No erythema Integumentary: No rashes, No erythema Neurological: Normal speech, Normal strength at 5/5 x4 extr - Studies Laboratory Data (last 24 hrs) 09/15/20 05:27: Troponin I 0.90 H* 09/15/20 05:27: Sodium 145, Potassium 2.6 L*, BUN 16, Creatinine 0.54 L, Glucose 133 H 09/15/20 05:27: WBC 19.0 H, Hgb 11.5 L, Hct 32.8 L, Plt Count 198 09/15/20 01:30: Troponin I 1.05 H* 09/14/20 21:30: PT 12.8 H, INR 1.09, APTT 24.0 L 09/14/20 21:30: WBC 21.0 H* D, Hgb 12.2 L, Hct 35.1 L, Plt Count 211 09/14/20 21:30: Sodium 141, Potassium 3.0 L, BUN 30 H, Creatinine 0.76, Glucose 179 H, Magnesium 2.2 Microbiology Data (last 24 hrs): 09/15/20 00:05 Nasopharnyx Coronavirus COVID-19 PCR - Final Assessment And Plan - Current Problems (Diagnosis) (1) Orthostatic hypotension Current Visit: Yes Status: Acute (2) Near syncope Current Visit: Yes Status: Acute (3) Epistaxis Current Visit: Yes Status: Acute (4) Swelling, mass, or lump in head and neck Current Visit: Yes Status: Acute (5) Elevated troponin Current Visit: Yes Status: Acute (6) History of CVA (cerebrovascular accident) Current Visit: Yes Status: Acute (7) Hypokalemia Current Visit: Yes Status: Acute - Plan Patient is currently hypertensive. Also noted leukocytosis. 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 Continue clindamycin Add IV Rocephin. Continue IV hydration. Labetalol p.r.n. for BP spikes. Elevated troponin likely secondary to sepsis. Cardiology input appreciated. Monitor CBC and transfuse p.r.n. for hemoglobin less than 8. Monitor for active bleeding. Continue aspirin and Plavix. No anticoagulation. Physician Review: Patient Assessed, Agree with Above Assessment and Plan
[2020-09-15] MEDS: Levofloxacin 750mg IV 750 MG/150 ML BAG IV SCH (11:38)
[2020-09-15] MEDS: ENSURE ENLIVE 237 ML CAN PO SCH (20:32)
[2020-09-16] MEDS: KCL 20 MEQ/100 mL IVPB 20 MEQ/100 ML BAG IV SCH ×3 (00:36→04:28)
[2020-09-16] MEDS: NA CHLORIDE 0.9% 1,000 ML IV SCH ×3 (00:38→11:08)
[2020-09-16 06:16] LABS: Absolute Lymphocytes (CBC) 2.9 K/uL (0.7-4.9); Basophils % 0.6 % (0-1.3); Hematocrit 36.3 % (39.6-49.0); MPV 10.2 fL (7.6-11.3); RBC Red Blood Cell Count 3.99 M/uL (4.33-5.43)
[2020-09-16 06:39] LABS: BUN Blood Urea Nitrogen 8 mg/dL (7-18); Bicarbonate 31 mmol/L (21-32); Glucose Level 149 mg/dL (74-106); Potassium 3.3 mmol/L (3.5-5.1); Sodium Level 140 mmol/L (136-145)
[2020-09-16] MEDS ORDERED: POTASSIUM CL SA 10 MEQ TAB PO ONE (07:15)
[2020-09-16] MEDS: CLOPIDOGREL 75 MG TABLET PO SCH (08:04)
[2020-09-16] MEDS: FOLIC ACID 1 MG TABLET PO SCH (08:04)
[2020-09-16] MEDS: NICOTINE 21 MG/PAT TD SCH (08:04)
[2020-09-16] MEDS: ATORVASTATIN 80 MG TAB PO SCH (08:04)
[2020-09-16] MEDS: SERTRALINE HCL 100 MG TAB PO SCH (08:04)
[2020-09-16] MEDS: ASPIRIN EC 81 MG TAB PO SCH (08:04)
[2020-09-16] MEDS: THIAMINE HCL 100 MG TABLET PO SCH (08:04)
[2020-09-16] MEDS: ENSURE ENLIVE 237 ML CAN PO SCH ×2 (08:05→20:22)
[2020-09-16 08:32] LABS: Blood Morphology Comment NOT SEEN (NOT SEEN); Platelet Estimate ADEQ
[2020-09-16] MEDS: HYDRALAZINE HCL 25 MG TABLET PO SCH ×3 (08:43→20:21)
[2020-09-16] MEDS: LOSARTAN POTASSIUM 50 MG TABLET PO SCH (08:43)
[2020-09-16] MEDS: Levofloxacin 750mg IV 750 MG/150 ML BAG IV SCH (11:00)
--- NOTE | 2020-09-16 11:25 | RAD REPORT ---
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 All CT scans are performed using dose optimization technique as appropriate and may include automated exposure control or mA/KV adjustment according to patient size. FINDINGS: There is extensive opacification of the left frontal sinus, left ethmoid sinus as well as both maxillary antra. Both nasal cavities appear filled with heterogenous soft tissue material extend ing to the nasopharynx.The mandible is intact. No focal fluid collection is seen. The globes and orbital contents are grossly unremarkable. IMPRESSION: Extensive opacification of paranasal sinuses is present as detailed.Poorly defined soft tissue density material is present in the nasal cavity extending to the nasopharynx, slightly greater on the left. No loculated fluid collection is seen
--- NOTE | 2020-09-16 12:24 | P.PN ---
Subjective Date of Service: 09/16/20 Primary Care Provider: AUDRA Chief Complaint: Orthostatic Hypotension, Hypokalemia, Near Syncope, ECG changes Patient complaining of left eye redness, discharge and left infraorbital swelling. No epistaxis. Nasal packing is in place. Vitals are stable. No change in leukocytosis. CT maxillofacial reviewed and reporting extensive opacification of the paranasal sinuses including the left frontal sinus. Physical Examination - Vital Signs Temperature: 98.8 F Blood Pressure: 155/80 Pulse: 74 Respirations: 19 Pulse Ox (%): 97 - Physical Exam General: In no apparent distress, Other (Intermittently confused.) HEENT: Other (Left infraorbital swelling, left eye redness and discharge.) Neck: Supple Respiratory: Clear to auscultation bilaterally, Normal air movement Cardiovascular: No edema, Regular rate/rhythm, Normal S1 S2 Gastrointestinal: Normal bowel sounds, Soft and benign, No tenderness Musculoskeletal: No swelling, No erythema Integumentary: No rashes Neurological: Other (Confused, nonfocal.) - Studies Microbiology Data (last 24 hrs): 09/15/20 00:05 Nasopharnyx Coronavirus COVID-19 PCR - Final Assessment And Plan - Current Problems (Diagnosis) (1) Orthostatic hypotension Current Visit: Yes Status: Acute (2) Near syncope Current Visit: Yes Status: Acute (3) Epistaxis Current Visit: Yes Status: Acute (4) Swelling, mass, or lump in head and neck Current Visit: Yes Status: Acute (5) Elevated troponin Current Visit: Yes Status: Acute (6) History of CVA (cerebrovascular accident) Current Visit: Yes Status: Acute (7) Hypokalemia Current Visit: Yes Status: Acute (8) Acute sinus infection Current Visit: Yes Status: Acute - Plan Patient is hypertensive. Home antihypertensives resumed. No change in leukocytosis. CT maxillofacial reviewed. I suspect infected sinuses. Given no significant the remission response to the current antibiotics, which change antibiotics to IV meropenem and vancomycin. Blood cultures: No growth to date Continue IV hydration. Labetalol p.r.n. for BP spikes. Elevated troponin likely secondary to sepsis. Cardiology input appreciated. Monitor CBC and transfuse p.r.n. for hemoglobin less than 8. Monitor for active bleeding. Continue aspirin and Plavix. No anticoagulation. Case discussed with ENT-Dr. Almeida. Awaiting her input.
[2020-09-16] MEDS: VANCOMYCIN/NS 1 gm 1 GM/250 ML BAG IV SCH ×2 (13:00→23:21)
[2020-09-16] MEDS ORDERED: VANCOMYCIN 1.25 GM in NA CHLORIDE 0.9% 250 ML IVPB SCH (13:00)
[2020-09-16] MEDS ORDERED: Meropenem 1,000 MG in NA CHLORIDE 0.9% 100 ML IV SCH (15:00)
[2020-09-16] MEDS ORDERED: POTASSIUM 25 MEQ EFFERV TAB PO ONE ×2 (17:00→23:44)
[2020-09-16] MEDS ORDERED: Meropenem 500 MG VIAL IV SCH (17:00)
[2020-09-16] MEDS: NIFEDIPINE XL 60 MG TABLET PO SCH (20:22)
[2020-09-17 05:40] LABS: Absolute Lymphocytes (CBC) 2.9 K/uL (0.7-4.9); Basophils % 0.9 % (0-1.3); Hematocrit 32.9 % (39.6-49.0); Lymphocytes % 15.7 % (15.3-44.8); MPV 10.1 fL (7.6-11.3)
[2020-09-17] MEDS: NA CHLORIDE 0.9% 1,000 ML IV SCH (05:42)
[2020-09-17 05:58] LABS: BUN Blood Urea Nitrogen 11 mg/dL (7-18); Bicarbonate 30 mmol/L (21-32); Glucose Level 173 mg/dL (74-106); Potassium 3.2 mmol/L (3.5-5.1); Sodium Level 140 mmol/L (136-145)
[2020-09-17] MEDS ORDERED: POTASSIUM 25 MEQ EFFERV TAB PO ONE (06:07)
[2020-09-17] MEDS: CLOPIDOGREL 75 MG TABLET PO SCH (08:44)
[2020-09-17] MEDS: HYDRALAZINE HCL 25 MG TABLET PO SCH ×3 (08:45→20:36)
[2020-09-17] MEDS: SERTRALINE HCL 100 MG TAB PO SCH (08:45)
[2020-09-17] MEDS: FOLIC ACID 1 MG TABLET PO SCH (08:45)
[2020-09-17] MEDS: ASPIRIN EC 81 MG TAB PO SCH (08:45)
[2020-09-17] MEDS: THIAMINE HCL 100 MG TABLET PO SCH (08:45)
[2020-09-17] MEDS: LOSARTAN POTASSIUM 50 MG TABLET PO SCH (08:45)
[2020-09-17] MEDS: ATORVASTATIN 80 MG TAB PO SCH (08:45)
[2020-09-17] MEDS: NICOTINE 21 MG/PAT TD SCH (08:46)
[2020-09-17] MEDS: ENSURE ENLIVE 237 ML CAN PO SCH ×2 (08:46→20:37)
[2020-09-17] MEDS: VANCOMYCIN/NS 1 gm 1 GM/250 ML BAG IV SCH ×2 (08:47→22:00)
--- NOTE | 2020-09-17 10:32 | P.PN ---
Subjective Date of Service: 09/17/20 Primary Care Provider: AUDRA Chief Complaint: Orthostatic Hypotension, Hypokalemia, Near Syncope, ECG changes No event overnight. Son says the patient is intermittently confused. No epistaxis. Left eye erythema and infraorbital swelling has gone down. Nasal packing is in place. No nasal discharge. Vitals are stable. Leukocytosis is trending down. Physical Examination - Vital Signs Temperature: 98.1 F Blood Pressure: 124/64 Pulse: 75 Respirations: 18 Pulse Ox (%): 95 - Physical Exam General: In no apparent distress, Confused (Mild), Other (Awake) HEENT: Mucous membr. moist/pink, EOMI Respiratory: Clear to auscultation bilaterally, Normal air movement Cardiovascular: No edema, Regular rate/rhythm, Normal S1 S2 Gastrointestinal: Normal bowel sounds, Soft and benign, No tenderness Musculoskeletal: No swelling, No erythema Integumentary: No rashes Neurological: Other (Nonfocal.) Assessment And Plan - Current Problems (Diagnosis) (1) Orthostatic hypotension Current Visit: Yes Status: Acute (2) Near syncope Current Visit: Yes Status: Acute (3) Epistaxis Current Visit: Yes Status: Acute (4) Swelling, mass, or lump in head and neck Current Visit: Yes Status: Acute (5) Elevated troponin Current Visit: Yes Status: Acute (6) History of CVA (cerebrovascular accident) Current Visit: Yes Status: Acute (7) Hypokalemia Current Visit: Yes Status: Acute (8) Acute sinus infection Current Visit: Yes Status: Acute - Plan Blood pressure has improved and patient is currently normotensive. The infection may be responding to the current antibiotics given the decrease in leukocytosis. Allergy to penicillin which shortness of breath noted. Continue IV Levaquin, oral clindamycin and IV vancomycin. Blood cultures: No growth to date Discontinue IV fluid. Labetalol p.r.n. for BP spikes. Elevated troponin likely secondary to sepsis. Cardiology input appreciated. Monitor CBC and transfuse p.r.n. for hemoglobin less than 8. Monitor for active bleeding. Continue aspirin and Plavix. No anticoagulation. Case discussed with ENT-Dr. Almeida. Awaiting her input. Physician Review: Patient Assessed, Agree with Above Assessment and Plan Physician Review Additional Text: Cardiology consult ASA, Plavix. No anticoagulation given epistaxis. Antibiotics.
[2020-09-17] MEDS ORDERED: POTASSIUM CL SA 10 MEQ TAB PO ONE (14:00)
[2020-09-17] MEDS: Levofloxacin 750mg IV 750 MG/150 ML BAG IV SCH (15:36)
[2020-09-17] MEDS: NIFEDIPINE XL 60 MG TABLET PO SCH (22:05)
[2020-09-18 05:51] LABS: Absolute Lymphocytes (CBC) 2.8 K/uL (0.7-4.9); Basophils % 0.9 % (0-1.3); Hematocrit 32.7 % (39.6-49.0); Lymphocytes % 15.3 % (15.3-44.8); MPV 9.7 fL (7.6-11.3)
[2020-09-18 06:07] LABS: BUN Blood Urea Nitrogen 11 mg/dL (7-18); Bicarbonate 31 mmol/L (21-32); Glucose Level 142 mg/dL (74-106); Potassium 3.2 mmol/L (3.5-5.1); Sodium Level 140 mmol/L (136-145)
[2020-09-18] MEDS ORDERED: POTASSIUM 25 MEQ EFFERV TAB PO ONE ×2 (06:12→14:32)
[2020-09-18] MEDS: CLOPIDOGREL 75 MG TABLET PO SCH (08:29)
[2020-09-18] MEDS: HYDRALAZINE HCL 25 MG TABLET PO SCH ×2 (08:30→14:43)
[2020-09-18] MEDS: SERTRALINE HCL 100 MG TAB PO SCH (08:30)
[2020-09-18] MEDS: ASPIRIN EC 81 MG TAB PO SCH (08:30)
[2020-09-18] MEDS: ATORVASTATIN 80 MG TAB PO SCH (08:30)
[2020-09-18] MEDS: ENSURE ENLIVE 237 ML CAN PO SCH (08:31)
[2020-09-18] MEDS: LOSARTAN POTASSIUM 50 MG TABLET PO SCH (08:31)
[2020-09-18] MEDS: THIAMINE HCL 100 MG TABLET PO SCH (08:31)
[2020-09-18] MEDS: FOLIC ACID 1 MG TABLET PO SCH (08:31)
[2020-09-18] MEDS: NICOTINE 21 MG/PAT TD SCH (08:31)
--- NOTE | 2020-09-18 10:45 | P.PN ---
Subjective Date of Service: 09/18/20 Primary Care Provider: AUDRA Chief Complaint: Orthostatic Hypotension, Hypokalemia, Near Syncope, ECG changes Son reports patient had a bloody left eye discharge. He also had a little bloody discharge from the nose. It appears his confusion is better. Left eye erythema has gone down but infraorbital swelling persist Nasal packing is in place. Vitals are stable. Leukocytosis unchanged from yesterday. Physical Examination - Vital Signs Temperature: 97.5 F Blood Pressure: 131/75 Pulse: 71 Respirations: 16 Pulse Ox (%): 96 - Physical Exam General: In no apparent distress, Other (Awake) HEENT: Other (Left infraorbital swelling.) Neck: Supple Respiratory: Clear to auscultation bilaterally, Normal air movement Cardiovascular: No edema, Regular rate/rhythm, Normal S1 S2 Gastrointestinal: Normal bowel sounds, Soft and benign, No tenderness Musculoskeletal: No swelling, No erythema Integumentary: No rashes Neurological: Normal speech, Normal strength at 5/5 x4 extr Assessment And Plan - Current Problems (Diagnosis) (1) Orthostatic hypotension Current Visit: Yes Status: Acute (2) Near syncope Current Visit: Yes Status: Acute (3) Epistaxis Current Visit: Yes Status: Acute (4) Swelling, mass, or lump in head and neck Current Visit: Yes Status: Acute (5) Elevated troponin Current Visit: Yes Status: Acute (6) History of CVA (cerebrovascular accident) Current Visit: Yes Status: Acute (7) Hypokalemia Current Visit: Yes Status: Acute (8) Acute sinus infection Current Visit: Yes Status: Acute - Plan Blood pressure has improved and patient is currently normotensive. T no change in leukocytosis from yesterday. Patient also bloody left eye discharge. Continue IV Levaquin, oral clindamycin and IV vancomycin. Blood cultures: No growth to date Case discussed with ENT Dr. Almeida. Will initiate transfer to [facility] where his nose was packed. The procedure was performed by Dr. Degroot. Labetalol p.r.n. for BP spikes. Cardiology input appreciated. Monitor CBC and transfuse p.r.n. for hemoglobin less than 8. Monitor for active bleeding. Hold aspirin and Plavix. No anticoagulation. Physician Review: Patient Assessed, Agree with Above Assessment and Plan
[2020-09-18] MEDS ORDERED: VANCOMYCIN 1.25 GM in NA CHLORIDE 0.9% 250 ML IVPB SCH (13:00)
[2020-09-18 13:38] VITALS: BP 130/66; TEMP 98.4
[2020-09-18] MEDS: Levofloxacin 750mg IV 750 MG/150 ML BAG IV SCH (14:43)
[2020-09-18 17:04] VITALS: O2SAT 97
--- NOTE | 2020-09-19 07:00 | P.CNS ---
Date of Consult: 09/19/20 I had brief communication regarding patient on evening, Sep 15, regarding his facial swelling and cellulitis and recommended IV Abx based on prior knowledge of patient from his clinical appointment with me earlier in the week. I reviewed his CT findings which were not overly different from other recent imaging other than likely packing/blood/secretions in the nasal cavity/sinuses. It was not my understanding that a formal consultation was being requested at that time. I was out of town for a wedding when I was notified on Saturday afternoon that a consult had been placed. I received a text from the primary team on Saturday afternoon, while I was still out of town that he was not improving and they were considering transfer for a higher level of care and I concurred. I was unable to personally evaluate the patient due to the circumstances.
--- NOTE | 2020-09-19 14:02 | P.DS ---
Admission Date: 09/15/20 Discharge Date: 09/18/20 Primary Care Provider: OOT Disposition: TRANSFER TO [facility] Reason for Admission: Orthostatic Hypotension, Hypokalemia, Near Syncope, ECG changes - Problems (1) Orthostatic hypotension Status: Acute (2) Near syncope Status: Acute (3) Epistaxis Status: Acute (4) Swelling, mass, or lump in head and neck Status: Acute (5) Elevated troponin Status: Acute (6) History of CVA (cerebrovascular accident) Status: Acute (7) Hypokalemia Status: Acute (8) Acute sinus infection Status: Acute Brief History of Present Illness: 75-year-old gentleman was brought to the emergency department because he had a syncopal episode at home. He he was diagnosed with a nasal 2 which was biopsied. Per report, patient bled profusely from the nose after the biopsy and had to be transferred to [facility] where his nose was packed by ENT. His hemoglobin in the ED was 12 but his WBC count was severely elevated to 21,000. Patient was taking antibiotics after the biopsy and and nasal packing. His troponin was also elevated. Patient was admitted for further management. Hospital Course: Patient admitted to the medical floor and started on broad-spectrum antibiotic which included IV Levaquin and oral clindamycin. His troponin was elevated to 1.19. Patient was not anticoagulated but was kept on his Plavix. He was seen by cardiology-Dr. Vela who attributed the elevated troponin to sepsis. Patient was intermittently confused during the hospital stay. His leukocytosis did not respond to the [address] maxillofacial was obtained which reported opacification of all the paranasal sinuses and also demonstrated the nasal packing. Case was discussed with Dr. Almeida who recommended antibioticss. IV vancomycin was added. Family reports that patient had a blood stained eye discharge and a brief bloody nasal discharge. Case was again discussed with ENT-Dr. Almeida and the general consensus was to transfer him to [facility] for further management. I spoke to Dr. Degroot and the hospitalist on-call at [facility] who accepted patient for transfer. His vitals were stable for transfer. Vital Signs/Physical Exam: Temp Pulse Resp BP Pulse Ox 98.4 F 69 16 130/66 96 09/18/20 12:00 09/18/20 12:00 09/18/20 12:00 09/18/20 12:00 09/18/20 12:00 General: Alert, In no apparent distress HEENT: Other (Left infraorbital and zygomatic areas slightly swollen compared to the right.) Respiratory: Clear to auscultation bilaterally, Normal air movement Cardiovascular: No edema, Regular rate/rhythm, Normal S1 S2 Gastrointestinal: Normal bowel sounds, Soft and benign, No tenderness Neurological: Other (Nonfocal.) Laboratory Data at Discharge: WBC 18.2 K/uL (4.3-10.9) H 09/18/20 05:36 Hgb 11.5 g/dL (13.6-17.9) L 09/18/20 05:36 Hct 32.7 % (39.6-49.0) L 09/18/20 05:36 Plt Count 241 K/uL (152-406) 09/18/20 05:36 PT 12.8 SECONDS (9.5-12.5) H 09/14/20 21:30 INR 1.09 09/14/20 21:30 APTT 24.0 SECONDS (24.3-36.9) L 09/14/20 21:30 Sodium 140 mmol/L (136-145) 09/18/20 05:36 Potassium 3.7 mmol/L (3.5-5.1) 09/18/20 12:15 BUN 11 mg/dL (7-18) 09/18/20 05:36 Creatinine 0.45 mg/dL (0.55-1.3) L 09/18/20 05:36 Glucose 142 mg/dL (74-106) H 09/18/20 05:36 Magnesium 2.1 mg/dL (1.8-2.4) 09/18/20 05:36 Troponin I 0.90 ng/mL (0.0-0.045) H* 09/15/20 05:27 Home Medications: Aspirin Chewable [Aspirin Chewable*] 81 mg PO DAILY 09/15/20 Atorvastatin Calcium [Lipitor] 80 mg PO DAILY 09/15/20 Clopidogrel Bisulfate [Plavix*] 75 mg PO DAILY 09/15/20 Folic Acid 1 mg PO DAILY 09/15/20 Nifedipine [Procardia Xl] 60 mg PO BEDTIME 09/15/20 Sertraline HCl 100 mg PO DAILY 09/15/20 Thiamine HCl 100 mg PO DAILY 09/15/20 clindamycin HCL [Clindamycin HCl] 300 mg PO Q6H 09/15/20 Hydralazine HCl [Apresoline] 1 tab PO TID 09/16/20 Losartan Potassium [Cozaar*] 1 tab PO DAILY 09/16/20 Followup: NONE,NONE [Primary Care Provider] - Time spent managing pt's care (in minutes): 46
== END 2020-09-18 17:33 | disposition short-term general hospital (02) | DRG 872 ==
LOC: ER 21:13 → ERHOLD 23:55 → 2ND 09-15 00:28 → OBSVTOIN 09-15 10:33
PROVIDERS: ADMIT Internal Medicine; ATTEND Internal Medicine
DX: A41.9 Sepsis, unspecified organism (principal); I50.32 Chronic diastolic (congestive) heart failure; L03.211 Cellulitis of face; I11.0 Hypertensive heart disease with heart failure; I95.1 Orthostatic hypotension; E86.0 Dehydration; E87.6 Hypokalemia; E78.5 Hyperlipidemia, unspecified; J01.90 Acute sinusitis, unspecified; K21.9 Gastro-esophageal reflux disease without esophagitis; L53.8 Other specified erythematous conditions; E11.9 Type 2 diabetes mellitus without complications; F17.200 Nicotine dependence, unspecified, uncomplicated; R04.0 Epistaxis; R22.0 Localized swelling, mass and lump, head; R22.1 Localized swelling, mass and lump, neck; R94.31 Abnormal electrocardiogram [ECG] [EKG]; R77.8 Other specified abnormalities of plasma proteins; Z88.0 Allergy status to penicillin; Z91.048 Other nonmedicinal substance allergy status; Z79.82 Long term (current) use of aspirin; Z79.899 Other long term (current) drug therapy; Z86.73 Personal history of transient ischemic attack (TIA), and cerebral infarction without residual deficits; Z91.038 Other insect allergy status; Z91.013 Allergy to seafood; Z60.2 Problems related to living alone; Z79.02 Long term (current) use of antithrombotics/antiplatelets; Z20.828 Contact with and (suspected) exposure to other viral communicable diseases
CPT/HCPCS: 30901; 36415; 70450; 70486; 71045; 80048; 80202; 81003; 83605; 83735; 84132; 84145; 84484; 85025; 85610; 85730; 87040; 88305; 93005; 96361; 96365; 97116; 97161; 97530; 99284; 99285; G0378; J2185; J3370; J3480; J7030; J7040; J7050; U0002

== ENCOUNTER 2023-07-09 12:56 | Emergency (ER) | payer OTHER ==
--- OUTSIDE RECORDS SUMMARY | 2023-07-09 12:59 | XMS REPORT | Continuity of Care Document ---
:1945 Author Organization [facility] t Address [address] [place] [address] Care Team Providers Name Role Phone BEATRIZ ACOSTA Attending Clinician Unavailable Problems This patient has no known problems. Allergies, Adverse Reactions, Alerts This patient has no known allergies or adverse reactions. Medications This patient has no known medications. Procedures This patient has no known procedures. Encounters Start End Encounter Admission Attending Care Care Encounter Source Date/Time Date/Time Type Type Clinicians Facility Department ID 2020-11-03 Outpatient DAVID ACOSTA [facility] [id number] [facility] 14:19:59 BEATRIZ Results This patient has no known results.
[2023-07-09 13:33] LABS: Absolute Lymphocytes (CBC) 2.7 K/uL (0.7-4.9); Hematocrit 46.6 % (39.6-49.0); Lymphocytes % 23.1 % (15.3-44.8); MCV 91.8 fL (80-100); MPV 8.7 fL (7.6-11.3); Platelets 233 thou/uL (152-406); RBC Red Blood Cell Count 5.07 M/uL (4.33-5.43)
[2023-07-09 13:43] LABS: Protime INR 1.07
[2023-07-09 13:47] LABS: Potassium 3.4 mEq/L (3.5-5.1)
[2023-07-09 13:59] LABS: Platelet Estimate ADEQ; White Blood Cell Scan OK (OK)
[2023-07-09 14:00] LABS: Blood Morphology Comment NOT SEEN (NOT SEEN)
--- NOTE | 2023-07-09 14:15 | RAD REPORT ---
EXAM DESCRIPTION: CT - Lower Ext Wo Con W/ Mpr - 07/09/2023 1:34 pm CLINICAL HISTORY: right femur stent with swelling COMPARISON: Extremity Venous Uni Ltd dated 07/09/2023; Lower Extremity Artery Uni Ltd dated 07/09/2023 TECHNIQUE: Thin cut axial CT imaging of the right lower extremity was performed without IV contrast. Multiplanar reformats were generated and reviewed. All CT scans are performed using dose optimization technique as appropriate and may include automated exposure control or mA/KV adjustment according to patient size. FINDINGS: Right external iliac graft in place, not well assessed in the absence of IV contrast. A lo bulated collection is seen at the distal aspect of the graft, at the junction with the common femoral artery, measuring 5.8 x 4.9 x 7.0 cm in greatest dimensions. There is distention of the distal aspec t of the graft at the proximal aspect of this collection. Atherosclerotic calcifications lying the po sterior wall of the collection, such as seen on axial image 43. Mild adjacent fat stranding. Dense atherosclerotic calcifications along the external iliac through popliteal arteries. Circumscribed central distal femoral diaphysis lesion with popcorn like pattern opacification, measur ing 1.5 x 1.1 cm, may represent a small enchondroma. No other suspicious masses or fluid collections. Visualized muscle compartments are unremarkable. No significant soft tissue swelling elsewhere. Evaluation of the pelvic structures reveals a small fat containing right inguinal hernia. IMPRESSION: Lobulated collection at the indication of the right external iliac artery graft with the common femoral artery measures up to 7 centimeter in greatest dimension. This is most suggestive of a pseudoaneurysm. Incidentally noted distal femoral diaphysis small enchondroma.
--- NOTE | 2023-07-09 14:20 | RAD REPORT ---
EXAM DESCRIPTION: US - Lower Extremity Artery Uni Ltd - 07/09/2023 1:53 pm CLINICAL HISTORY: Pain;Swelling COMPARISON: Lower Ext Wo Con W/ Mpr dated 07/09/2023 TECHNIQUE: Right lower extremity arterial Doppler examination was performed with waveform tracing. FINDINGS: Partially thrombosed pseudoaneurysm at the junction of the external iliac artery with the common femoral artery, measuring up to 5.1 x 3.4 cm in greatest dimensions on ultrasound, although it s size is better assessed on concomitant CT. Turbulent flow seen in its non thrombosed portion, which is measured at 2.5 x 2.3 cm in greatest caliber on ultrasound. Dense atherosclerotic calcifications throughout. Biphasic to monophasic waveforms are seen throughout the right lower extremity arterial systems from the level of the proximal superficial femoral artery to the level of the dorsalis pedis artery. Mildly blunted waveforms starting at the distal superfici al femoral artery. IMPRESSION: Partially thrombosed pseudoaneurysm at the junction of the external iliac artery with th e common femoral artery, as described above. Moderate peripheral vascular disease of the right lower extremity as above. The findings were communicated to Mayco Soot on 07/09/2023 at 14:17 hours.
--- NOTE | 2023-07-09 14:21 | RAD REPORT ---
EXAM DESCRIPTION: US - Extremity Venous Uni Ltd - 07/09/2023 1:53 pm CLINICAL HISTORY: Pain, swelling COMPARISON: None. TECHNIQUE: Real-time sonographic evaluation of the right lower extremity deep venous system was perf ormed. FINDINGS: Normal compressibility, flow augmentation, phasic flow and spontaneous flow is identified in the right lower extremity deep venous system. Limited evaluation of the common femoral vein due to presence of known pseudoaneurysm. No intraluminal filling defects seen. IMPRESSION: No evidence of DVT in the right lower extremity.
--- NOTE | 2023-07-09 14:28 | EDPHYS ---
Physician Documentation [facility] Name: Miguel Baxter Age: 77 yrs Sex: Male : 1945 Arrival Date: 07/09/2023 Time: 12:56 Bed 11 Private MD: ED Physician Mayco Soto HPI: 07/09 13:14 This 77 yrs old Male presents to ER via Ambulatory with complaints of Groin Pain. rn 13:14 The patient presents with pain, swelling. The complaints affect the right upper thigh. rn Onset: The symptoms/episode began/occurred yesterday. Modifying factors: The symptoms are alleviated by nothing. the symptoms are aggravated by palpation. Associated signs and symptoms: Pertinent positives: swelling, Pertinent negatives fever, warmth, weakness. Severity of symptoms: At their worst the symptoms were moderate, in the emergency department the symptoms are unchanged. The patient has not experienced similar symptoms in the past. The patient has not recently seen a physician. Pt reports right groin pain, began yesterday, no injury, no fever. Had femoral stent placed atleast 5 years ago, no problems since. Also reports swelling to the area. No skin changes or change in color of RLE. . Historical: - Allergies: 13:10 Iodine; ap3 13:10 PENICILLINS; ap3 - PMHx: 13:10 CHF; CVA; Diabetes; High Cholesterol; Hypertension; tumor; ap3 - PSHx: 13:32 Stented artery; mb9 - Immunization history:: Adult Immunizations up to date. - Family history:: not pertinent. - Social history:: Smoking status: Patient reports the use of cigarette tobacco products, smokes one pack cigarettes per day. - Hospitalizations: : No recent hospitalization is reported. ROS: 13:14 Constitutional: Negative for fever, chills, and weight loss, Cardiovascular: Negative rn for chest pain, palpitations, and edema, Respiratory: Negative for shortness of breath, cough, wheezing, and pleuritic chest pain, Abdomen/GI: Negative for abdominal pain, nausea, vomiting, diarrhea, and constipation, Back: Negative for injury and pain, MS/Extremity: + right proximal leg pain and swelling Skin: Negative for injury, rash, and discoloration, Neuro: Negative for headache, weakness, numbness, tingling, and seizure. Exam: 13:14 Constitutional: This is a well developed, well nourished patient who is awake, alert, rn and in no acute distress. Cardiovascular: Bradycardic, regular. No pulse deficits. Respiratory: No increased work of breathing, no retractions or nasal flaring. Abdomen/GI: Soft, non-tender Skin: Warm, dry MS/ Extremity: No cyanosis. Neurovascular intact. Full, normal range of motion. Equal circumference. + swelling and tenderness right proximal thigh overlying femoral vessels with strong femoral pulse. Neuro: Awake and alert, GCS 15 Vital Signs: 13:09 BP 161 / 78; Pulse 56; Resp 17; Temp 98.6; Pulse Ox 96% ; Weight 54.43 kg; Pain 3/10; ap3 14:30 BP 150 / 74; Pulse 51; Resp 18; Pulse Ox 97% on R/A; Height 5 ft. 5 in. ; mb9 16:54 BP 162 / 87; Pulse 55; Resp 16; Pulse Ox 97% on R/A; mb9 18:00 BP 166 / 80; Pulse 61; Resp 16; Pulse Ox 100% on R/A; mb9 14:30 Body Mass Index 19.97 (54.43 kg, 165.1 cm) mb9 13:09 Pain Scale: Adult ap3 MDM: 13:00 Patient medically screened. rn 14:26 Differential diagnosis: pseudoaneurysm, DVT, arterial thrombus. Data reviewed: vital rn signs, nurses notes, lab test result(s), radiologic studies, CT scan, ultrasound, and as a result, I will admit patient. Consideration of Admission/Observation Patient was admitted/placed on observation. Counseling: I had a detailed discussion with the patient and/or guardian regarding: the historical points, exam findings, and any diagnostic results supporting the discharge/admit diagnosis, lab results, radiology results, the need for further work-up and treatment in the hospital, the need to transfer to another facility, for higher level of care, [facility] does not immediately have the required specialist. 16:39 ED course: Still have not heard back from [facility] regarding transfer. . rn 17:11 ED course: [facility], spoke rn with Vascular surgeon there, accepts for transfer, does not recommend anticoagulation at this time.. 17:29 ED course: Accepted for transfer to [facility]. . rn 07/09 13:11 Order name: CBC with Diff; Complete Time: 14:00 rn 07/09 13:11 Order name: Basic Metabolic Panel; Complete Time: 13:58 rn 07/09 13:11 Order name: Protime (+inr); Complete Time: 13:58 rn 07/09 13:11 Order name: Ptt, Activated; Complete Time: 13:58 rn 07/09 13:36 Order name: CBC Smear Scan; Complete Time: 14:00 EDMS 07/09 13:11 Order name: Extremity Venous Uni Ltd US; Complete Time: 14:23 rn 07/09 13:11 Order name: Lower Extremity Artery Uni Ltd US; Complete Time: 14:23 rn 07/09 13:21 Order name: Lower Ext Wo Con W/ Mpr; Complete Time: 14:23 EDMS 07/09 13:11 Order name: IV Start; Complete Time: 13:21 rn Administered Medications: 16:23 Drug: Nicotine Transdermal Patch 21 mg/24 hr 1 patches {Note: right arm.} Route: mb9 Transdermal; Site: affected area; Disposition Summary: 07/09/23 14:28 Transfer Ordered Reason: Higher level of care rn Condition: Stable rn Problem: new 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 Total time: 45 rn minutes Signatures: Dispatcher [employer] EDWI Mayco Soto MD MD rn Prokisch, Amanda RN RN [email or web address] Chioma Florez RN RN [email or web address] Corrections: (The following items were deleted from the chart) 13:11 13:10 PMHx: Angina pectoris; ap3 ap3 13:21 13:15 Lower Ext Angio ordered. EDWI EDMS 17:29 14:28 rn rn 17:29 14:28 's Administration System rn rn 19:55 17:29 Dr. malachi [email or web address]
--- NOTE | 2023-07-09 14:28 | ER ---
Nurse's Notes [facility] Name: Miguel Baxter Age: 77 yrs Sex: Male : 1945 Arrival Date: 07/09/2023 Time: 12:56 Bed 11 Private MD: Diagnosis: Pseudoaneurysm of right femoral artery, with partial thrombus Presentation: 07/09 13:09 Chief complaint: Patient states: he is having pain and swelling at the location of a ap3 right femoral stent which was placed approx 5 years ago. Coronavirus screen: At this time, the client does not indicate any symptoms associated with coronavirus-19. Ebola Screen: No symptoms or risks identified at this time. Initial Sepsis Screen: Does the patient meet any 2 criteria? No. Patient's initial sepsis screen is negative. Does the patient have a suspected source of infection? No. Patient's initial sepsis screen is negative. Risk Assessment: Do you want to hurt yourself or someone else? Patient reports no desire to harm self or others. Onset of symptoms was July 09, 2023 at 03:00. 13:09 Method Of Arrival: Ambulatory ap3 13:09 Acuity: JANAY 3 ap3 Triage Assessment: 13:11 General: Appears in no apparent distress. Behavior is calm, cooperative. Pain: ap3 Complains of pain in right femoral artery Pain currently is 3 out of 10 on a pain scale. at worst was 10 out of 10 on a pain scale. Neuro: Level of Consciousness is awake, alert, obeys commands, Oriented to person, place, time, situation. Cardiovascular: Patient's skin is warm and dry. Respiratory: Airway is patent Respiratory effort is even, unlabored, Respiratory pattern is regular, symmetrical. Historical: - Allergies: 13:10 Iodine; ap3 13:10 PENICILLINS; ap3 - PMHx: 13:10 CHF; CVA; Diabetes; High Cholesterol; Hypertension; tumor; ap3 - PSHx: 13:32 Stented artery; mb9 - Immunization history:: Adult Immunizations up to date. - Family history:: not pertinent. - Social history:: Smoking status: Patient reports the use of cigarette tobacco products, smokes one pack cigarettes per day. - Hospitalizations: : No recent hospitalization is reported. Screenin:11 Abuse screen: Denies threats or abuse. Nutritional screening: No deficits noted. ap3 Tuberculosis screening: No symptoms or risk factors identified. 13:21 [facility] ED Fall Risk Assessment (Adult) History of falling in the last 3 months, mb9 including since admission No falls in past 3 months (0 pts) Confusion or Disorientation No (0 pts) Intoxicated or Sedated No (0 pts) Impaired Gait No (0 pts) Mobility Assist Device Used No (0 pt) Altered Elimination No (0 pt) Score/Fall Risk Level 0 - 2 = Low Risk Oriented to surroundings, Maintained a safe environment, Educated pt \\T\\ family on fall prevention, incl call for assistance when getting out of bed. Assessment: 13:10 General: Appears in no apparent distress. Behavior is calm, cooperative. Pain: mb9 Complains of pain in right leg Pain does not radiate. Pain currently is 3 out of 10 on a pain scale. Quality of pain is described as throbbing, Pain began 1 day ago. Is intermittent. Neuro: Delgado Agitation-Sedation Scale (RASS): 0 - Alert and Calm Level of Consciousness is awake, alert, obeys commands, Oriented to person, place, time, situation, Appropriate for age. Cardiovascular: Heart tones S1 S2 present Patient's skin is warm and dry. Pulses are 1+ in right dorsalis pedis artery. Cardiovascular: Pulses are 2+ in right femoral artery. Respiratory: Airway is patent Respiratory effort is even, unlabored, Respiratory pattern is regular, symmetrical. GI: Abdomen is round non-distended, Abd is soft and non tender X 4 quads. Derm: Skin is pink, warm \\T\\ dry. Musculoskeletal: Swelling present in right thigh. 13:25 Reassessment: pt taken to CT via wheelchair. mb9 14:30 Reassessment: No changes from previously documented assessment. Patient and/or family mb9 updated on plan of care and expected duration. Pain level reassessed. Patient is alert, oriented x 3, equal unlabored respirations, skin warm/dry/pink. 15:30 Reassessment: No changes from previously documented assessment. Patient and/or family mb9 updated on plan of care and expected duration. Pain level reassessed. Patient is alert, oriented x 3, equal unlabored respirations, skin warm/dry/pink. 16:30 Reassessment: No changes from previously documented assessment. Patient and/or family mb9 updated on plan of care and expected duration. Pain level reassessed. Patient is alert, oriented x 3, equal unlabored respirations, skin warm/dry/pink. 17:58 Reassessment: Attempted to call report to transferring nurse. States, "can you call mb9 back in 15 minutes due to the nurse in a pts room.". 18:20 Reassessment: Attempted to call report to transferring nurse. States "We will call you mb9 back in 10-15 minutes." Charge nurse, Mis, notified. 19:23 Reassessment: Report given to transferring nurse KARLOS Flannery. mb9 19:49 Reassessment: Report given to [facility]. mb9 Vital Signs: 13:09 BP 161 / 78; Pulse 56; Resp 17; Temp 98.6; Pulse Ox 96% ; Weight 54.43 kg; Pain 3/10; ap3 14:30 BP 150 / 74; Pulse 51; Resp 18; Pulse Ox 97% on R/A; Height 5 ft. 5 in. ; mb9 16:54 BP 162 / 87; Pulse 55; Resp 16; Pulse Ox 97% on R/A; mb9 18:00 BP 166 / 80; Pulse 61; Resp 16; Pulse Ox 100% on R/A; mb9 14:30 Body Mass Index 19.97 (54.43 kg, 165.1 cm) mb9 13:09 Pain Scale: Adult ap3 ED Course: 12:59 Patient arrived in ED. rg4 13:00 Mayco Soto MD is Attending Physician. rn 13:10 Chioma Florez RN is Primary Nurse. mb9 13:10 Triage completed. ap3 13:10 Arm band placed on. mb9 13:11 Patient has correct armband on for positive identification. Bed in low position. Call ap3 light in reach. Side rails up X 1. Adult w/ patient. Pulse ox on. NIBP on. 13:21 Inserted saline lock: 20 gauge in right forearm, using aseptic technique. mb9 13:22 No provider procedures requiring assistance completed. mb9 13:36 Lower Ext Wo Con W/ Mpr In Process Unspecified. EDMS 13:55 Extremity Venous Uni Ltd US In Process Unspecified. EDMS 13:55 Lower Extremity Artery Uni Ltd US In Process Unspecified. EDMS 14:38 Inserted saline lock: 18 gauge in left forearm, using aseptic technique. ds4 14:46 initiated transfer to [facility]. bd 19:49 Patient transferred, IV remains in place. mb9 Administered Medications: 16:23 Drug: Nicotine Transdermal Patch 21 mg/24 hr 1 patches {Note: right arm.} Route: mb9 Transdermal; Site: affected area; Medication: 13:22 VIS not applicable for this client. mb9 Outcome: 14:28 ER care complete, transfer ordered by . rn 19:49 Transferred to [facility] [place], [place] form completed. mb9 19:49 Condition: stable 19:49 Instructed on the need for transfer. 19:55 Patient left the ED. mb9 Signatures: Dispatcher [employer] EDMS Jennifer Butler Roman, MD MD rn Swanson, Donovan ds4 Magdalena Davis rg4 Emilie Ruth RN RN ap3 Chioma Florez RN RN mb9 Corrections: (The following items were deleted from the chart) 13:11 13:10 PMHx: Angina pectoris; ap3 ap3 14:34 14:30 BP 150 / 74; Pulse 51bpm; Resp 18bpm; Pulse Ox 97% RA; mb9 mb9
[2023-07-09] MEDS ORDERED: NICOTINE 21 MG/PAT TD ONE (16:30)
[2023-07-09 20:52] VITALS: TEMP 98.6
[2023-07-09 20:59] VITALS: BP 166/80; O2SAT 100
== END 2023-07-09 19:55 | disposition short-term general hospital (02) ==
LOC: ER 12:56
DX: I72.4 Aneurysm of artery of lower extremity (principal); F17.210 Nicotine dependence, cigarettes, uncomplicated; I10 Essential (primary) hypertension; Z86.73 Personal history of transient ischemic attack (TIA), and cerebral infarction without residual deficits; Z88.0 Allergy status to penicillin; Z91.048 Other nonmedicinal substance allergy status
CPT/HCPCS: 36415; 73700; 76377; 80048; 85025; 85610; 85730; 93926; 93971; 99285

== ENCOUNTER 2023-08-11 18:55 | Emergency (ER) | payer OTHER ==
--- OUTSIDE RECORDS SUMMARY | 2023-08-11 18:46 | XMS REPORT | Continuity of Care Document ---
:1945 Author Organization [facility] t Address [address] [place] [address] [address] [place] [address] Care Team Providers Name Role Phone No, Pcp [facility] Primary Care Physician Unavailable ABILIO HERNANDEZ Attending Clinician Unavailable LEE PETTIT Attending Clinician Unavailable BERNABE PETTIT Attending Clinician Unavailable JOSE JUAN MARTINEZ Attending Clinician Unavailable BEATRIZ ACOSTA Attending Clinician Unavailable Leonel RIGGS, Heydi River Attending Clinician Jenny RIGGS, Tyron Cisneros Attending Clinician Jose Juan Martinez MD Attending Clinician Suzy RIGGS, Jossue Cruz Attending Clinician Abilio Hernandez MD Attending Clinician Dacia RIGGS, Parvez Anne Attending Clinician Blayne Larose MD Attending Clinician Lee Pettit MD Attending Clinician JOSE JUAN MARTINEZ Admitting Clinician Unavailable Payers Payer Name Policy Type Policy Number Effective Date Expiration Date S theresa MEDICARE A B [id number] 2011 00:00:00 S CNTRL [place] NTWK [id number] 2023 00:00:00 Problems Condition Condition Condition Status Onset Resolution Last Treating Co mments Source Name Details Category Date Date Treatment Clinician Date Urinary Urinary Disease Active [facility] retention retention 07-23 [facility] 00:[facility]: [facility] 00 Center Acute Acute Disease Active [facility] metabolic metabolic 07-23 [facility] encephalop encephalop 00:00: Me dical athy athy 00 Center Other Other Disease Active [facility] constipati constipati 07-23 Birdie kes on on 00:00: Medical 00 Dwarf Acute Acute Disease Active [facility] post-opera post-opera 07-17 [facility]ie k[facility] tive pain tive pain 00:00: Medi matt 00 Center Mixed Mixed Disease Active [facility] hyperlipid hyperlipid 07-17 Birdie kes emia emia 00:00: Medical 00 Center History of History of Disease Active [facility] rheumatic rheumatic 07-17 [facility] heart heart 00:00: Medical disease disease 00 Center History of History of Disease Active [facility] AAA AAA 23 [facility] (abdominal (abdominal 00:00: Me dical aortic aortic 00 Center aneurysm) aneurysm) repair repair Acute Acute Disease Active [facility] blood loss blood loss 07-17 Birdie kes anemia anemia 00:00: Medical 00 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, is, 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 00:00: Me dical d type d type 00 Center Hyperglyce Hyperglyce Disease Active [facility] yajaira yajaira 23 [facility] 00:00: Medical 00 Center 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 00:00: Medica l 00 Center Hypertensi Hypertensi Disease Active [facility] on with on with 8-15 [facility] goal to be goal to be 00:00: Me dical determined determined 00 Ce nter Acute Acute Disease Recurre [facility] cerebrovas cerebrovas nce 8-15 [facility]ie k[facility] cular cular 00:00: Medical accident accident 00 Center of of cerebellum cerebellum Peripheral Peripheral Disease Recurre [facility] arterial arterial nce 8-15 [facility] disease disease 00:00: Medical 00 Center 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 00:00: Medical artery artery 00 Center Tobacco Tobacco Disease Active [facility] use use 8-15 [facility] disorder disorder 00:00: Medica l 00 Center Essential Essential Disease Active [facility] hypertensi hypertensi 8-15 Birdie kes on on 00:00: Medical 00 Center History of History of Disease Active [facility] aorto-femo aorto-femo -15 Birdie kes ral bypass ral bypass 00:00: Me dical 00 Center Femoral Femoral Disease Resolve 2023-07-10 2023-07-[address] [facility] artery artery d 8-15 00:00:00 04:01:46 [facility] pseudo-ane pseudo-ane 00:00: Me dical urysm, urysm, 00 Center right right Allergies, Adverse Reactions, Alerts Allergy Allergy Status Severity Reaction(s) Onset Inactive Treating Comm ents Source Name Type Date Date Clinician Iodinate Drug Active [facility] Allergy 8-16 [facility] Contrast 00:00: Medical Media 00 Center IODINATE Allergy Active High [facility] D 8-16 [facility] CONTRAST 00:00: Medical MEDIA 00 Center Penicill Drug Active Other (See Stated [facility] in Allergy Comments) 8-15 childhood Naty es 00:00: allergy - Medical 00 tolerates Center cephalosp orins Shellfis Drug Active Anaphylaxis [facility] Allergy 8-15 [facility] Containi 00:00: Medical ng 00 Center Products SHELLFIS Allergy Active High Anaphylaxis [facility] H 8-15 [facility] CONTAINI 00:00: Medical NG 00 Center PRODUCTS PENICILL Allergy Active Other [facility] IN 8-15 [facility] 00:00: Medical 00 Center Family History Family Member Diagnosis Comments Start Date Stop Date Source Natural father Heart attack [facility] Natural mother [facility] Social History Social Habit Start Date Stop Date Quantity Comments Source History of tobacco Cigarette Smoker [facility] History SDOH [facility]Med [facility] Alcohol intake 2023-07-17 2023-07-17 Ex-drinker [facility] es 00:00:00 00:00:00 (finding) Medical Center History SDOH 2023-07-10 2023-07-[address] [facility] Transport Med 00:00:00 00:00:[address] [facility] 2023-07-10 2023-07-[address] [facility] Housing Unable to 00:00:00 00:00:00 Medical Center Pay History [facility] 2023-07-10 2023-07-[address] [facility] Places 00:00:00 00:00:00 Medical Ce nter Lived History [facility] 2023-07-10 2023-07-[address] [facility] Homeless 00:00:00 00:00:00 Medical Center Last Year Exposure to 2023-06-29 2023-07-09 Not sure [facility] SARS-CoV-2 (event) 00:00:00 23:10:00 [facility] Cigarettes smoked 2023-07-09 2023-07-09 [facility] current (pack per 00:00:00 00:00:00 Medical Center day) - Reported Cigarette 2023-07-09 2023-07-09 [facility] pack-years 00:00:00 00:00:00 [facility] Sex Ass[birth year] At [birth year] [facility] 00:00:00 00:00:00 [facility] Smoking Status Start Date Stop Date Source Smokes tobacco daily 2023-07-09 00:00:00 [facility] Medications Ordered Filled Start Stop Current Ordering Indication Dosage Frequency Signature Comments Components Source Medication Medication Date Date Medication? Clinician (SIG) Name Name nicotine Yes 1{patch QD Place [address] [facility] St (NICODERM 8-30 } patch onto Luke s CQ) 21 00:00: the skin Medical mg/24 hr 00 daily. Center patch pantoprazol Yes 40mg QD Take [address] [facility] St e 8-30 tablet (40 [facility] (PROTONIX) 00:00: mg total) Me dical 40 MG 00 by mouth Center tablet daily. tamsulosin Yes .4mg QD Take 1 [facility] (FLOMAX) 8-30 capsule [facility] 0.4 mg Cap 00:00: (0.4 mg Medi matt 24 hr 00 total) by Center capsule mouth daily. nicotine Yes 1{patch QD Place [address] [facility] (NICODERM 8-30 } patch onto Luke s CQ) 00:00: the skin Medical mg/24 hr 00 daily. Center patch pantoprazol 2023-0 Yes 40mg QD Take [address] [facility] e 8-30 tablet (40 [facility] (PROTONIX) 00:00: mg total) Me dical 40 MG 00 by mouth Center tablet daily. tamsulosin 2023-0 Yes .4mg QD Take 1 [facility] (FLOMAX) 8-30 capsule [facility] 0.4 mg Cap 00:00: (0.4 mg Medi matt 24 hr 00 total) by Center capsule mouth daily. nicotine 2023-0 Yes 1{patch QD Place [address] [facility] (NICODERM 8-30 } patch onto Luke s CQ) 00:00: the skin Medical mg/24 hr 00 daily. Center patch pantoprazol 2023-0 Yes 40mg QD Take [address] [facility] e 8-30 tablet (40 [facility] (PROTONIX) 00:00: mg total) Me dical 40 MG 00 by mouth Center tablet daily. tamsulosin 2023-0 Yes .4mg QD Take 1 [facility] (FLOMAX) 8-30 capsule [facility] 0.4 mg Cap 00:00: (0.4 mg Medi matt 24 hr 00 total) by Center capsule mouth daily. aspirin 81 2023-0 Yes 81mg QD Take 1 [facility] MG chewable 8-29 tablet (81 Birdie kes tablet 14:46: mg total) Medica l 10 by mouth Center daily. thiamine 2023-0 Yes 100mg QD Take [address] [facility] 100 MG 8-29 tablet [facility] tablet 14:46: (100 mg Medical 10 total) by Center mouth daily. atorvastati 2023-0 Yes 40mg QD Take [address] [facility] [address] n (LIPITOR) 8-29 tablet (40 Birdie kes 40 MG 14:46: mg total) Medical tablet 10 by mouth Center daily. aspirin 81 2023-0 Yes 81mg QD Take 1 [facility] MG chewable 8-29 tablet (81 Birdie kes tablet 14:46: mg total) Medica l 10 by mouth Center daily. thiamine 2023-0 Yes 100mg QD Take [address] [facility] 100 MG 8-29 tablet [facility] tablet 14:46: (100 mg Medical 10 total) by Center mouth daily. atorvastati 2023-0 Yes 40mg QD Take [address] [facility] n (LIPITOR) 8-29 tablet (40 Birdie kes 40 MG 14:46: mg total) Medical tablet 10 by mouth Center daily. aspirin 81 2022-0 Yes 81mg QD Take 1 [facility] t MG chewable 8-29 tablet (81 Birdie kes tablet 14:46: mg total) Medica l 10 by mouth Center daily. thiamine 3-0 Yes 100mg QD Take [address] [facility] [address] 100 MG 8-29 tablet [facility] tablet 14:46: (100 mg Medical 10 total) by Center mouth daily. atorvastati 2022-0 Yes 40mg QD Take [address] [facility] [address] n (LIPITOR) 8-29 tablet (40 Birdie kes 40 MG 14:46: mg total) Medical tablet 10 by mouth Center daily. NIFEdipine 2022-0 2023- No 60mg QD Take [address] [facility] (PROCARDIA- 8-29 08-29 tablet (60 L ukes XL) 60 MG 10:51: 00:00 mg total) Me dical (OSM) 24 hr 58 :00 by mouth Cent er tablet nightly. NIFEdipine 2022-0 2022- No 60mg QD Take [address] [facility] [address] (PROCARDIA- 8-29 08-29 tablet (60 L ukes XL) 60 MG 10:51: 00:00 mg total) Me dical (OSM) 24 hr 58 :00 by mouth Cent er tablet nightly. NIFEdipine 2022-0 2022- No 60mg QD Take [address] [facility] [address] (PROCARDIA- 8-29 08-29 tablet (60 L ukes XL) 60 MG 10:51: 00:00 mg total) Me dical (OSM) 24 hr 58 :00 by mouth Cent er tablet nightly. acetaminoph 2022-0 Yes 650mg Take [address] [facility] en 8-29 tablets [facility] (TYLENOL) 00:00: (650 mg Medic al 325 MG 00 total) by Center tablet mouth every 6 (six) hours. bisacodyL 3-0 Yes 10mg Take [address] [facility] (DULCOLAX) 8-29 tablets [facility] 5 mg EC 00:00: (10 mg Medical tablet 00 total) by Center mouth daily as needed for Constipati on. bisacodyL 3-[address] [facility] (DULCOLAX) 8-29 suppositor Naty es 10 mg 00:00: y (10 mg Medical suppository 00 total) Center rectally daily as needed. calcium 2023-0 Yes 1000mg Take [address] [facility] [address] carbonate 8-29 tablets [facility] (TUMS) 500 00:00: (1,000 mg Me dical mg chewable 00 total) by [address] tablet mouth 3 (three) times daily as needed for Heartburn. insulin 2023-0 Yes 0U Inject 0-[address] lispro 8-29 Units [facility] (HumaLOG) 00:00: subcutaneo Me dical 100 unit/mL 00 usly every Ce nter injection night as needed (High blood sugar). ondansetron 3-0 Yes 4mg Inject [address] PF (ZOFRAN) 8-29 mLs (4 mg Naty es 4 mg/2 mL 00:00: total) Medica l injection 00 intravenou Cent er sly every 6 (six) hours as needed (Nausea, vomiting). polyethylen 3-0 Yes 17g Q.5D Take [address] e glycol 8-29 by mouth 2 [facility] (GLYCOLAX) 00:00: (two) Medica l 17 gram 00 times Center packet daily. QUEtiapine 2023-0 Yes 25mg QD Take 1 [facility] (SEROquel) 8-29 tablet (25 Naty es 25 MG 00:00: mg total) Medical tablet 00 by mouth Center nightly. traMADoL 2023-0 Yes 50mg Take [address] [facility] (ULTRAM) 50 8-29 tablet (50 Birdie kes mg tablet 00:00: mg total) Med ical 00 by mouth Center every 6 (six) hours as needed (Moderate to severe acute postop pain). Max Daily Amount: 200 mg acetaminoph 2023-0 Yes 650mg Take [address] [facility] [facility] en 8-29 tablets [facility]ukes (TYLENOL) 00:00: (650 mg Medic al 325 MG 00 total) by Center tablet mouth every 6 (six) hours. bisacodyL 2023-0 Yes 10mg Take [address] [facility] (DULCOLAX) 8-29 tablets [facility]ukes 5 mg EC 00:00: (10 mg Medical tablet 00 total) by Center mouth daily as needed for Constipati on. bisacodyL 2023-[address] [facility] (DULCOLAX) 8-29 suppositor Naty es 10 mg 00:00: y (10 mg Medical suppository 00 total) Center rectally daily as needed. calcium 3-0 Yes 1000mg Take [address] [facility] carbonate 8-29 tablets [facility] (TUMS) 500 00:00: (1,000 mg Me dical mg chewable 00 total) by [address] tablet mouth 3 (three) times daily as needed for Heartburn. insulin 2022-0 Yes 0U Inject 0-[address] lispro 8-29 Units [facility] (HumaLOG) 00:00: subcutaneo Me dical 100 unit/mL 00 usly every Ce nter injection night as needed (High blood sugar). ondansetron 2022-0 Yes 4mg Inject [address] PF (ZOFRAN) 8-29 mLs (4 mg Naty es 4 mg/2 mL 00:00: total) Medica l injection 00 intravenou Cent er sly every 6 (six) hours as needed (Nausea, vomiting). polyethylen 2022-0 Yes 17g Q.5D Take [address] e glycol 8-29 by mouth 2 [facility] (GLYCOLAX) 00:00: (two) Medica l 17 gram 00 times Center packet daily. QUEtiapine 2022-0 Yes 25mg QD Take 1 [facility] (SEROquel) 8-29 tablet (25 Naty es 25 MG 00:00: mg total) Medical tablet 00 by mouth Center nightly. traMADoL 3-0 Yes 50mg Take [address] [facility] (ULTRAM) 50 8-29 tablet (50 Birdie kes mg tablet 00:00: mg total) Med ical 00 by mouth Center every 6 (six) hours as needed (Moderate to severe acute postop pain). Max Daily Amount: 200 mg acetaminoph 3-0 Yes 650mg Take [address] [facility] [facility] en 8-29 tablets [facility] (TYLENOL) 00:00: (650 mg Medic al 325 MG 00 total) by Center tablet mouth every 6 (six) hours. bisacodyL 2023-0 Yes 10mg Take [address] [facility] (DULCOLAX) 8-29 tablets [facility]ukes 5 mg EC 00:00: (10 mg Medical tablet 00 total) by Center mouth daily as needed for Constipati on. bisacodyL 2023-[address] [facility] (DULCOLAX) 8- suppositor Naty es 10 mg 00:00: y (10 mg Medical suppository 00 total) Center rectally daily as needed. calcium 0 Yes 1000mg Take [address] [facility] [facility] carbonate 8-29 tablets [facility] (TUMS) 500 00:00: (1,000 mg Me dical mg chewable 00 total) by [address] tablet mouth 3 (three) times daily as needed for Heartburn. insulin 0 Yes 0U Inject 0-[address] lispro 8-29 Units [facility] (HumaLOG) 00:00: subcutaneo Me dical 100 unit/mL 00 usly every Ce nter injection night as needed (High blood sugar). ondansetron 0 Yes 4mg Inject [address] PF (ZOFRAN) - mLs (4 mg Naty es 4 mg/2 mL 00:00: total) Medica l injection 00 intravenou Cent er sly every 6 (six) hours as needed (Nausea, vomiting). polyethylen 0 Yes 17g Q.5D Take [address] e glycol - by mouth 2 [facility] (GLYCOLAX) 00:00: (two) Medica l 17 gram 00 times Center packet daily. QUEtiapine 0 Yes 25mg QD Take 1 [facility] (SEROquel) - tablet (25 Naty es 25 MG 00:00: mg total) Medical tablet 00 by mouth Center nightly. traMADoL 0 Yes 50mg Take [address] [facility] (ULTRAM) 50 - tablet (50 Birdie kes mg tablet 00:00: mg total) Med ical 00 by mouth Center every 6 (six) hours as needed (Moderate to severe acute postop pain). Max Daily Amount: 200 mg NIFEdipine 0 2023- Yes 60mg Q.5D Take [address] [address] (PROCARDIA- 07-23- tablet (60 L ukes XL) 60 MG 00:00: 23:59 mg total) Me dical (OSM) 24 hr 00 :00 by mouth 2 Ce nter tablet (two) times daily. carvediloL 0 2023- Yes 6.25mg Q.5D Take [address] (COREG) 8-29 08-28 tablet [facility] 6.25 MG 00:00: 23:59 (6.25 mg Medic al tablet 00 :00 total) by Center mouth 2 (two) times daily. insulin 2023- Yes 0U Inject 0-[address] lispro 07-23 08-28 Units [facility]ukes (HumaLOG) 00:00: 23:59 subcutaneo M edical 100 unit/mL 00 :00 usly 3 Center injection (three) times daily before meals. senna-docus 2023- Yes 2{tbl} QD Take [address] ate 07-23-28 tablets by [facility] (SENOKOT S) 00:00: 23:59 mouth Medi matt 8.6-50 mg 00 :00 nightly. Center per tablet NIFEdipine 2023- Yes 60mg Q.5D Take [address] [facility] [address] (PROCARDIA- 07-23 08-28 tablet (60 L ukes XL) 60 MG 00:00: 23:59 mg total) Me dical (OSM) 24 hr 00 :00 by mouth 2 Ce nter tablet (two) times daily. carvediloL 2023- Yes 6.25mg Q.5D Take [address] (COREG) 07-23-28 tablet [facility] 6.25 MG 00:00: 23:59 (6.25 mg Medic al tablet 00 :00 total) by Center mouth 2 (two) times daily. insulin 2023- Yes 0U Inject 0-[address] lispro 07-23 08-28 Units [facility] (HumaLOG) 00:00: 23:59 subcutaneo M edical 100 unit/mL 00 :00 usly 3 Center injection (three) times daily before meals. senna-docus 2023- Yes 2{tbl} QD Take [address] ate 8- 08-28 tablets by [facility] (SENOKOT S) 00:00: 23:59 mouth Medi matt 8.6-50 mg 00 :00 nightly. Center per tablet NIFEdipine 2023- Yes 60mg Q.5D Take [address] [facility] [address] (PROCARDIA- 07-23 08-28 tablet (60 L ukes XL) 60 MG 00:00: 23:59 mg total) Me dical (OSM) 24 hr 00 :00 by mouth 2 Ce nter tablet (two) times daily. carvediloL 2023- Yes 6.25mg Q.5D Take [address] (COREG) 07-23 tablet [facility]ukes 6.25 MG 00:00: 23:59 (6.25 mg Medic al tablet 00 :00 total) by Center mouth 2 (two) times daily. insulin 2023- Yes 0U Inject 0-[address] lispro 07-23 Units [facility]ukes (HumaLOG) 00:00: 23:59 subcutaneo M edical 100 unit/mL 00 :00 usly 3 Center injection (three) times daily before meals. senna-docus 2023- Yes 2{tbl} QD Take [address] ate 07-23 tablets by [facility] (SENOKOT S) 00:00: 23:59 mouth Medi matt 8.6-50 mg 00 :00 nightly. Center per tablet aspirin 81 Yes 81mg QD Take 1 [facility] MG chewable 8-15 tablet (81 Birdie kes tablet 22:39: mg total) Medica l 19 by mouth Center daily. NIFEdipine Yes 60mg QD Take 1 [facility] (PROCARDIA- 8-15 tablet (60 Birdie kes XL) 60 MG 22:39: mg total) Med ical (OSM) 24 hr 19 by mouth Cent er tablet nightly. thiamine Yes 100mg QD Take [address] [facility] 100 MG 8-15 tablet [facility]ukes tablet 22:39: (100 mg Medical 19 total) by Center mouth daily. atorvastati Yes 40mg QD Take [address] [facility] n (LIPITOR) 8-15 tablet (40 Birdie kes 40 MG 22:39: mg total) Medical tablet 19 by mouth Center daily. Vital Signs Vital Name Observation Time Observation Value Comments Source WEIGHT 2023-07-23 03:45:00 52.3 kg WEIGHT 2023-07-21 05:54:00 50.168 kg WEIGHT 2023-07-20 04:57:00 54.25 kg WEIGHT 2023 05:00:00 56.564 kg WEIGHT 2023-07-16 05:19:00 58.06 kg WEIGHT 2023-07-15 04:55:00 57.788 kg WEIGHT 2023-07-14 04:00:00 58.196 kg WEIGHT 2023-07-11 04:36:00 52.345 kg WEIGHT 2023-07-09 21:34:00 52.345 kg WEIGHT 2023-07-23 03:45:00 52.3 kg WEIGHT 2023-07-21 05:54:00 50.168 kg WEIGHT 2023-07-20 04:57:00 54.25 kg WEIGHT 2023 05:00:00 56.564 kg WEIGHT 2023-07-16 05:19:00 58.06 kg WEIGHT 2023-07-15 04:55:00 57.788 kg WEIGHT 2023-07-14 04:00:00 58.196 kg WEIGHT 2023-07-11 04:36:00 52.345 kg WEIGHT 2023-07-09 21:34:00 52.345 kg WEIGHT 2023-07-23 03:45:00 52.3 kg WEIGHT 2023-07-21 05:54:00 50.168 kg WEIGHT 2023-07-20 04:57:00 54.25 kg WEIGHT 2023 05:00:00 56.564 kg WEIGHT 2023-07-16 05:19:00 58.06 kg WEIGHT 2023-07-15 04:55:00 57.788 kg WEIGHT 2023-07-14 04:00:00 58.196 kg WEIGHT 2023-07-11 04:36:00 52.345 kg WEIGHT 2023-07-09 21:34:00 52.345 kg Systolic blood 2023-07-23 13:06:00 153 mm[Hg] [facility] Diastolic blood 2023-07-23 13:06:00 62 mm[Hg] [facility] Heart rate 2023-07-23 13:06:00 57 /min [facility] Body temperature 2023-07-23 13:06:00 37.11 Janice [facility] Respiratory rate 2023-07-23 13:06:00 18 /min [facility] Oxygen saturation in 2023-07-23 13:06:00 95 /min [facility] Arterial blood by Medical Ce nter Pulse oximetry Body weight 2023-07-23 03:45:[address] [facility] Systolic blood 2023-07-12 11:00:00 153 mm[Hg] [facility] Diastolic blood 2023-07-12 11:00:00 69 mm[Hg] [facility] Heart rate 2023-07-12 11:00:00 55 /min [facility] Body temperature 2023-07-12 11:00:00 36.28 Janice [facility] Respiratory rate 2023-07-12 11:00:00 18 /min [facility] Oxygen saturation in 2023-07-12 11:00:00 97 /min [facility] Arterial blood by Medical Ce nttato Pulse oximetry Body weight 2023-07-11 04:36:[address] [facility] Procedures Procedure Date / Time Performed Performing Clinician Sourdisha e POCT-GLUCOSE METER 2023-07-23 12:58:00 Jose Juan Martinez [facility] POCT-GLUCOSE METER 2023-07-23 07:27:00 Abilio Hernandez [facility] CBC W/PLT COUNT & AUTO 2023-07-23 04:54:[address] [facility] BASIC METABOLIC PANEL 2023-07-23 04:54:00 Solomon Mathias [facility] PHOSPHORUS 2023-07-23 04:54:00 Jose Juan Martinez [facility] MAGNESIUM 2023-07-23 04:54:00 [facility] W[facility] & AUTO 2023-07-23 04:54:00 Solomon Mathias [facility] (CELLAVISION MANUAL 2023-07-23 04:54:00 Solomon Mathias [facility] DIFF) [facility] ECG 12-LEAD 2023-07-23 04:17:14 Jossue Almonte [facility] POCT-GLUCOSE METER 2023-07-22 20:58:00 Abilio Hernandez [facility] POCT-GLUCOSE METER 2023-07-22 16:40:00 [facility] 2023-07-22 12:46:[address] [facility]KUB 1 VIEW 2023-07-22 10:02[facility] 2023-07-22 07:08:00 [facility] 12-LEAD 2023-07-22 05:13:56 Jossue Almonte [facility] ECG 12-LEAD 2023-07-22 05:13:56 Unknown, 7 [facility] ECG 12-LEAD 2023-07-22 05:13:56 Unknown, Hl7 [facility] CBC W/PLT COUNT & AUTO 2023-07-22 04:31:00 Solomon Mathias [facility] BASIC METABOLIC PANEL 2023-07-22 04:31:00 Solomon Mathias [facility] PHOSPHORUS 2023-07-22 04:31:00 MartinezJose Juan [facility] MAGNESIUM 2023-07-22 04:31:00 Juan Jose Juan [facility] CBC W/PLT COUNT & AUTO 2023-07-22 04:31:00 Solomon Mathias [facility] (CELLAVISION MANUAL 2023-07-22 04:31:00 [facility] DIFF[facility] POCT-GLUCOSE METER 2023-07-21 20:52:00 Jossue Almonte [facility] POCT-GLUCOSE METER 2023-07-21 16:59:00 Suzy Jossue [facility] POCT-GLUCOSE METER 2023-07-21 11:01:00 Suzy [facility] POCT-GLUCOSE METER 2023-07-21 08:54:00 Suzy [facility] ECG 12-LEAD 2023-07-21 08:46:25 Hasan, Jossue Ali [facility] ECG 12-LEAD 2023-07-21 08:46:25 Unknown, Hl7 [facility] ECG 12-LEAD 2023-07-21 08:46:25 Unknown, Hl7 [facility] CBC W/PLT COUNT & AUTO 2023-07-21 04:35:00 StewSolomon wilsonb [facility] BASIC METABOLIC PANEL 2023-07-21 04:35:00 StewSolomon wilson [facility] PHOSPHORUS 2023-07-21 04:35:00 [facility] MAG[facility]UM 2023-07-21 04:35:00 [facility] CBC W/PLT COUNT & AUTO 2023-07-21 04:35:[address] [facility] (CELLAVISION MANUAL 2023-07-21 04:35:[address] [facility] DIFF[facility] POCT-GLUCOSE METER 2023-07-20 21:41:00 Suzy [facility] POCT-GLUCOSE METER 2023-07-20 18:01:00 Jossue Almonte [facility] CBC W/PLT COUNT & AUTO 2023-07-20 04:47:[address] [facility] BASIC METABOLIC PANEL 2023-07-20 04:47:00 Solomon Mathias [facility] HEMOGLOBIN A1C 2023-07-20 04:47:00 [facility] PHOSPHORUS 2023-07-20 04:47:00 [facility] MAGNESIUM 2023-07-20 04:47:00 [facility] CBC W/PLT COUNT & AUTO 2023-07-20 04:47:00 StewSolomon wilson [facility] (CELLAVISION MANUAL 2023-07-20 04:47:[address] [facility] S [facility] DIFF[facility] Medical Center HEMOGLOBIN AND 2023 18:14:00 Martinez Jose [facility]josy [facility] HEMATOCRIT [facility] POCT-GLUCOSE METER 2023 16:38:00 Martinez, [facility] POCT-GLUCOSE METER 2023 04:51:00 [facility]US 2023 03:14:00 StewSolomon wilson [facility] MAGNESIUM 2023 03:14:00 StewSolomon wilson [facility] CBC W/PLT COUNT & AUTO 2023 03:14:00 Solomon Mathias [facility] BASIC METABOLIC PANEL 2023 03:14:00 Solomon Mathias [facility] CBC W/PLT COUNT & AUTO 2023 03:14:00 Solomon Mathias I [facility] (CELLAVISION MANUAL 2023 03:14:[address] [facility] S t [facility] DIFF) [facility] POCT-GLUCOSE METER 2023-07-18 21:10:00 Martinez, [facility] POCT-GLUCOSE METER 2023-07-18 16:40:00 [facility] 2023-07-18 11:03:00 [facility] PO[facility]SE [facility]ER 2023-07-18 08:15:00 Martinez, [facility] PHOSPHORUS 2023-07-18 02:40:00 StewSolomon wilson [facility] MAGNESIUM 2023-07-18 02:40:00 StewSolomon wilson [facility] CBC W/PLT COUNT & AUTO 2023-07-18 02:40:00 Solomon Mathias CH I [facility] BASIC METABOLIC PANEL 2023-07-18 02:40:00 StewSolomon wilson El [facility] CBC W/PLT COUNT & AUTO 2023-07-18 02:40:[address] [facility] (CELLAVISION MANUAL 2023-07-18 02:40:[address] [facility] S t Lujesus DIFF) [facility] POCT-GLUCOSE METER 2023-07-17 20:57:00 Jose Juan Martinez [facility] POCT-GLUCOSE METER 2023-07-17 16:32:00 Juan Jose Juan [facility] ALBUMIN 2023-07-17 12:55:00 Taylor Cisneros [facility] PREALBUMIN 2023-07-17 12:55:00 Blayne [facility] POCT-GLUCOSE METER 2023-07-17 12:03:00 Juan Jose Juan [facility] PHOSPHORUS 2023-07-17 04:19:00 Solomon Mathias El [facility] MAGNESIUM 2023-07-17 04:19:00 [facility] & AUTO 2023-07-17 04:19:00 Solomon Mathias [facility] BASIC METABOLIC PANEL 2023-07-17 04:19:00 Solomon Mathias [facility] CBC W/PLT COUNT & AUTO 2023-07-17 04:19:00 Solomon Mathias [facility] (CELLAVISION MANUAL 2023-07-17 04:19:[address] [facility] S t Lujesus DIFF) [facility] PREPARE RBC 2023-07-17 00:43:00 Tyron Alvarado [facility] POCT-GLUCOSE METER 2023-07-16 23:51:00 [facility], ION[facility]ED 2023-07-16 22:49:[address] [facility] PHOSPHORUS 2023-07-16 22:49:00 Solomon Mathias El [facility] MAGNESIUM 2023-07-16 22:49:00 Solomon Mathias [facility] CBC W/PLT COUNT & AUTO 2023-07-16 22:49:00 Solomon Mathias [facility] BASIC METABOLIC PANEL 2023-07-16 22:49:00 Solomon Mathias [facility] CBC W/PLT COUNT & AUTO 2023-07-16 22:49:00 Solomon Mathias [facility] (CELLAVISION MANUAL 2023-07-16 22:49:00 Solomon Mathias [facility] 2023-07-16 20:15:00 [facility] POCTACT 2023-07-16 19:40:00 [facility] POCT-ACT 2023-07-16 19:04:00 [facility] RRL CRITICAL LABS 2023-07-16 19:00:00 [facility] (ABG,NA,K,H&H,GLUCOSE) [facility] enter CALCIUM, IONIZED 2023-07-16 19:00:[address] [facility] BLOOD GAS, ARTERIAL 2023-07-16 19:00:[address] [facility] SODIUM NA-STAT LAB 2023-07-16 19:00:00 Bret Cobb [facility] POTASSIUM-STAT LAB 2023-07-16 19:00:00 Bret Cobb [facility] GLUCOSE-STAT LAB 2023-07-16 19:00:[address] [facility] HGB/HCT (H&H) - STAT LAB 2023-07-16 19:00:[address] [facility] POCT-ACT 2023-07-16 18:27:00 [facility] RRL CRITICAL LABS 2023-07-16 18:15:51 [facility] (ABG,NA,K,H&H,GLUCOSE) [facility] enter CALCIUM, IONIZED 2023-07-16 18:15:[address] [facility] BLOOD GAS, ARTERIAL 2023-07-16 18:15:[address] [facility] SODIUM NA-STAT LAB 2023-07-16 18:15:51 Jordyn [facility] POTASSIUM-STAT LAB 2023-07-16 18:15:51 Jordyn [facility] GLUCOSE-STAT LAB 2023-07-16 18:15:[address] [facility] HGB/HCT (H&H) - STAT LAB 2023-07-16 18:15:[address] [facility] RRL CRITICAL LABS 2023-07-16 16:51:03 Dacia [facility] (ABG[facility]NA,K,[facility]H,[facility] CALCIUM, IONIZED 2023-07-16 16:51:03 Dacia [facility] BLOOD GAS, ARTERIAL 2023-07-16 16:51:03 Dacia [facility] SODIUM NA-STAT LAB 2023-07-16 16:51:03 Dacia [facility] POTASSIUM-STAT LAB 2023-07-16 16:51:03 Dacia [facility] GLUCOSE-STAT LAB 2023-07-16 16:51:03 Dacia [facility] HGB/HCT (H&H) - STAT LAB 2023-07-16 16:51:03 Dacia [facility] REPAIR,ANEURYSM 2023-07-16 15:31:00 Lee Pettit [facility] FEMORAL/POPLITEAL [facility] VENOUS DOPPLER LEGS 2023-07-16 08:49:[address] [facility] CBC (HEMOGRAM ONLY) 2023-07-16 04:19:00 Deja Shelton [facility] BASIC METABOLIC PANEL 2023-07-16 04:19:[address] [facility] [place] [place] PROTHROMBIN TIME/INR 2023-07-16 04:19:00 [facility] TYPE AND SCREEN, 2023-07-15 16:29:00 [facility] BASIC METABOLIC PANEL 2023-07-13 05:47:00 Tyron [facility] CBC (HEMOGRAM ONLY) 2023-07-13 05:47:00 Tyron Alvarado [facility] VEIN MAPPING LEGS 2023-07-12 19:45:00 [facility] BASIC METABOLIC PANEL 2023-07-12 04:23:00 Tyron Al[facility] CBC (HEMOGRAM ONLY) 2023-07-12 04:23:00 Tyron Alvarado [facility] PSA 2023-07-12 04:23:00 Jose Juan Martinez [facility] 2D ECHO W/ DOPPLER 2023-07-11 09:25:00 Todd Joya [facility] (CW/PW/COLOR) [facility] BASIC METABOLIC PANEL 2023-07-11 05:07:00 Jenny [facility]ron [facility] CBC (HEMOGRAM ONLY) 2023-07-11 05:07:00 Tyron Alvarado [facility] MAGNESIUM 2023-07-11 05:07:00 Jose Juan Martinez [facility] PHOSPHORUS 2023-07-11 05:07:00 Minasael [facility] ABORH, MANUAL 2023-07-10 18:26:00 Terra Pearce [facility] SARS-COV2/RT-PCR ([facility] & 2023-07-10 17:34:00 [facility] REF LABS) Medical Center TYPE AND SCREEN, 2023-07-10 17:34:00 [facility] ECG 12-LEAD 2023-07-10 17:25:45 Vitor Root [facility] ECG 12-LEAD 2023-07-10 17:25:45 Unknown, Hl[facility] ECG 12-LEAD 2023-07-10 17:25:45 Unknown, Hl[facility] CTA AAA AND RUNOFF 2023-07-10 16:25:38 Jina Soto [facility] HIGH SENSITIVITY 2023-07-10 12:32:00 Todd Joya Susana [facility] TROPONIN I [facility] URINE CULTURE 2023-07-10 08:45:00 [facility] REFLEX 2023-07-10 08:45:00 Padilla [facility] URINE CULTURE [facility] BLOOD CULTURE 2023-07-10 04:27:00 Padilla [facility] BASIC METABOLIC PANEL 2023-07-10 04:26:00 Jenny Tyron [facility] MAGNESIUM 2023-07-10 04:26:00 Jenny, [facility] PHOSPHORUS 2023-07-10 04:26:00 Jenny [facility] CBC W/PLT COUNT & AUTO 2023-07-10 04:26:00 Jenny [facility] DIFFERENTIAL [facility] CBC W/PLT COUNT & AUTO 2023-07-10 04:26:00 Jenny [facility] Plan of Care Planned Activity Planned Date Details Comments Source Future Scheduled 2027-08-08 DTAP/TDAP/TD VACCINES [facility]00 (2 - Td or Tdap) [code Medic al Center = DTAP/TDAP/TD VACCINES (2 - Td or Tdap)] Future Scheduled 2027-08-08 DTAP/TDAP/TD VACCINES [facility] 00:00:00 (2 - Td or Tdap) [code Medic al Center = DTAP/TDAP/TD VACCINES (2 - Td or Tdap)] Future Scheduled 2027-08-08 DTAP/TDAP/TD VACCINES [facility] 00:00:00 (2 - Td or Tdap) [code Medic al Center = DTAP/TDAP/TD VACCINES (2 - Td or Tdap)] Future Scheduled 2024-07-[address] [facility] 00:00:00 Counseling and Medical Cente r Screening (12+) [code = Tobacco Cessation Counseling and Screening (12+)] Future Scheduled 2024-07-[address] [facility] 00:00:00 [facility]ing and Medical Cente r Screening (12+) [code = Tobacco Cessation Counseling and Screening (12+)] Future Scheduled 2024-07-[address] [facility] 00:00:00 Counseling and Medical Cente r Screening (12+) [code = Tobacco Cessation Counseling and Screening (12+)] Future Scheduled 2024-07-[address] [facility] 00:00:00 Counseling and Medical Cente r Screening (12+) [code = Tobacco Cessation Counseling and Screening (12+)] Future Scheduled 2023-07-26 Influenza Vaccine (#1) [facility] 00:00:00 [code = Influenza Medical Ce nter Vaccine (#1)] Future Scheduled 2023-07-26 Influenza Vaccine (#1) [facility] 00:00:00 [code = Influenza Medical Ce nter Vaccine (#1)] Future Scheduled 2023-07-26 Influenza Vaccine (#1) [facility] 00:00:00 [code = Influenza Medical Ce nter Vaccine (#1)] Future Scheduled 2023-07-26 Influenza Vaccine (#1) [facility] 00:00:00 [code = Influenza Medical Ce nter Vaccine (#1)] Future Scheduled 2022-11-25 FALLS [address]ISK SCREENING [facility] 00:00:00 [code = FALLS RISK Medical C enter SCREENING] Future Scheduled 2022-11-[address] [facility] 00:00:00 (12+) [code = Medical Center DEPRESSION SCREENING (12+)] Future Scheduled 2022-11-25 FALLS RISK SCREENING [facility] 00:00:00 [code = FALLS RISK Medical C enter SCREENING] Future Scheduled 2022-11-[address] [facility] 00:00:00 (12+) [code = Medical Center DEPRESSION SCREENING (12+)] Future Scheduled 2022-11-25 FALLS RISK SCREENING [facility] 00:00:00 [code = FALLS RISK Medical C enter SCREENING] Future Scheduled 2022-11-[address] [facility] 00:00:00 (12+) [code = Medical Center DEPRESSION SCREENING (12+)] Future Scheduled 2022-11-[address] [facility] 00:00:00 (12+) [code = Medical Center DEPRESSION SCREENING (12+)] Future Scheduled 2022-11-25 FALLS RISK SCREENING [facility] 00:00:00 [code = FALLS RISK Medical C enter SCREENING] Future Scheduled 2017-12-03 PNEUMOCOCCAL 65+ Y[facility] 00:00:00 (2 - PPSV23 if Medical Cente r available, else PCV20) [code = PNEUMOCOCCAL 65+ YRS (2 - PPSV23 if available, else PCV20)] Future Scheduled 2017-12-03 PNEUMOCOCCAL 65+ Y[facility] 00:00:00 (2 - PPSV23 if Medical Cente r available, else PCV20) [code = PNEUMOCOCCAL 65+ YRS (2 - PPSV23 if available, else PCV20)] Future Scheduled 2017-12-03 PNEUMOCOCCAL 65+ Y[facility] 00:00:00 (2 - PPSV23 if Medical Cente r available, else PCV20) [code = PNEUMOCOCCAL 65+ YRS (2 - PPSV23 if available, else PCV20)] Future Scheduled 2013-04-28 SHINGLES VACCINES ([address] [facility] 00:00:00 of 3) [code = SHINGLES Medic al Center VACCINES (2 of 3)] Future Scheduled 2013-04-28 SHINGLES VACCINES ([address] [facility] 00:00:00 of 3) [code = SHINGLES Medic al Center VACCINES (2 of 3)] Future Scheduled 2013-04-28 SHINGLES VACCINES ([address] [facility] 00:00:00 of 3) [code = SHINGLES Medic al Center VACCINES (2 of 3)] Future Scheduled 2012-06-[address] [facility] 00:[facility]:00 WELLNESS (YEAR 2 or Medical Center FIRST YEAR if no IPPE) [code = MEDICARE ANNUAL WELLNESS (YEAR 2 or FIRST YEAR if no IPPE)] Future Scheduled 2012-06-[address] [facility] 00:00:00 WELLNESS (YEAR 2 or Medical Center FIRST YEAR if no IPPE) [code = MEDICARE ANNUAL WELLNESS (YEAR 2 or FIRST YEAR if no IPPE)] Future Scheduled 2012-06-[address] [facility] 00:00:00 WELLNESS (YEAR 2 or Medical Center FIRST YEAR if no IPPE) [code = MEDICARE ANNUAL WELLNESS (YEAR 2 or FIRST YEAR if no IPPE)] Future Scheduled 2012-06-[address] [facility] 00:00:00 WELLNESS (YEAR 2 or Medical Center FIRST YEAR if no IPPE) [code = MEDICARE ANNUAL WELLNESS (YEAR 2 or FIRST YEAR if no IPPE)] Future Scheduled [address] [facility] 00:[facility]:00 malignant neoplasm of Medica l Center lung (procedure) [code = 479774084] Future Scheduled [address] [facility] [facility] 00:00:00 malignant neoplasm of Medica l Center lung (procedure) [code = 949532129] Future Scheduled [address] [facility] [facility] 00:00:00 malignant neoplasm of Medica l Center lung (procedure) [code = 579537890] Future Scheduled 1996 SHINGLES VACCINES ([address] [facility] 00:00:00 of 2) [code = SHINGLES Medic al Center VACCINES (1 of 2)] Future Scheduled [address] [facility] 00:00:00 malignant neoplasm of Medica l Center lung (procedure) [code = 280900490] Future Scheduled 1965 DTAP/TDAP/TD VACCINES [facility] 00:00:00 (1 - Tdap) [code = Medical C enter DTAP/TDAP/TD VACCINES (1 - Tdap)] Future Scheduled 1964 HEPATITIS C SCREENING [facility] 00:00:00 [code = HEPATITIS C Medical Center SCREENING] Future Scheduled 1964 HEPATITIS C SCRE[facility]ING [facility] 00:00:00 [code = HEPATITIS C Medical Center SCREENING] Future Scheduled 1964 HEPATITIS C SCRE[facility]ING [facility] 00:00:00 [code = HEPATITIS C Medical Center SCREENING] Future Scheduled 1964 HEPATITIS C SCRE[facility]ING [facility] 00:00:00 [code = HEPATITIS C Medical Center SCREENING] Future Scheduled 1952 PNEUMOCOCCAL 65+ YRS [facility] 00:00:00 (1 - PCV) [code = Medical Ce nter PNEUMOCOCCAL 65+ YRS (1 - PCV)] Future Scheduled 1947-01-19 COVID-19 VACCINE (#1) [facility] 00:00:00 [code = COVID-[address] VACCINE (#1)] Future Scheduled 1947-01-19 COVID-19 VACCINE (#1) [facility] 00:00:00 [code = COVID-[address] VACCINE (#1)] Future Scheduled 1947-01-19 COVID-19 VACCINE (#1) [facility] 00:00:00 [code = COVID-[address] VACCINE (#1)] Future Scheduled 1946-01-19 COVID-19 VACCINE (#1) [facility] 00:00:00 [code = COVID-[address] VACCINE (#1)] Encounters Start End Encounter Admission Attending Care Care Encounter Source Date/Time Date/Time Type Type Clinicians Facility Department ID 2023-07-22 Inpatient [facility] [id number] [facility] 09:18:36 2023-07-16 Inpatient ER WILVER [facility] [id number] [facility] 07:31[facility] Inpatient ER WILVER [facility] SLE [id number] SLE[facility] 17:49:59 BERNABE 2023-07-11 Inpatient ER JOSE JUAN MARTINEZ [facility] [id number] SLE 07:38:53 2020-11-03 Outpatient DAVE, [facility] [id number] [facility] 14:19:59 BEATRIZ 2023-07-09 2023-07-23 Inpatient ER JUAN JOSE JUAN [facility] Surgery [id number] SLEH 20:54:00 14:45:00 2023-07-09 2023-07-23 [facility] Heydi Castaneda [facility] [id number] 20:54:00 14:45:00 Encounter Tyron Alvarado [facility] Jossue Almonte Dwarf Abilio Hernandez 2023-07-09 2023-07-23 [facility] Heydi Castaneda [facility] [id number] 20:54:00 14:45:00 Encounter Tyron Alvarado [facility] Jose Juan Martinez Syed Ali Reza Dwarf Abilio Hernandez 2023-07-16 2023-07-16 Anesthesia Dacia Parvez Anne [facility] [id number] 15:41:00 22:13:00 Event Lachelle [facility] 2023-07-16 2023-07-16 Anesthesia Dacia Parvez Anne [facility] [id number] 15:41[facility]00 22:13:00 [facility] 2023-07-16 Surgery Wilver, [facility] [id number] 15:00:00 18:46:00 [facility] 2023-07-16 2023-07-16 Surgery Wilver, [facility] [id number] 15:00:00 18:46:00 [facility] 2023-07-10 2023-07-10 Inpatient ER WILVER, [facility] [id number] SLEH 16:07:16 00:00:00 [facility] 2023-07-10 2023-07-10 Outpatient WILVER, [facility] SLE [id number] [facility] 00:00:00 00:00:00 [facility] 2023-07-10 2023-07-10 Orders [facility] [id number] 00:00:00 00:00:00 Only [facility] 2023-07-10 2023-07-10 Orders [facility] [id number] 00:00:00 00:00:00 Only [facility] 2023-07-09 2023-07-09 Travel [facility] [id number] [facility] 00:[facility]00 00:00:00 [facility] 2023-07-09 2023-07-09 Travel [facility] [id number] [facility] 00[facility] 00:00:00 [facility] Results Test Description Test Time Test Comments Results Result Comments Source POC-Glucose meter 2023-07-23 13:13:05 Test Item Value Reference Range Interpretation Comme nts POC-Glucose Meter (test code = 127 mg/dL 70-110 H : TESTED AT [facility] [address] [facility] 1538) [facility], [facility] 30: Hvac Refrigeration Technician/Techni krystal ID = [id number] for LUCIO BRUNSONOM A Lab Interpretation (test code = Abnormal 87401-7) [facility] [id number] 13:13:05 Test Item Value Reference Range Interpretation Comments POC-Glucose Meter (test 127 mg/dL 70-110 H : TE STED AT [facility] code = 1538) [address] [place] [address], [facility] 30: Hvac Refrigeration Technician/Techni krystal ID = [id number] for LUCIO BRUNSONOM A Lab Interpretation (test Abnormal code = 42356-7) [facility] [id number] 13:13:05 Test Item Value Reference Range Interpretation Comments POC-Glucose Meter (test 127 mg/dL 70-110 H : TE STED AT [facility] code = 1538) [address] [place] [address], [facility] 30: Hvac Refrigeration Technician/Techni krystal ID = [id number] for LUCIO BRUNSONOM A Lab Interpretation (test Abnormal code = 59082-3) [facility] [id number] 13:13:05 Test Item Value Reference Range Interpretation Comments POC-GLUCOSE METER 127 mg/dL 70-110 H [facility] (BE[facility]ER[facility] (test code = [facility] 1538) [address]: Hvac Refrigeration Technician/Techni krystal ID = [id number] for CHASE CRAWFORD CHIOMA POCT-GLUCOSE [id number] 08:33:19 Test Item Value Reference Range Interpretation Comments POC-GLUCOSE METER 134 mg/dL 70-110 H : TESTED A T [facility] [address] (BEAKER) (test code = [facility], 1538) [address]: Hvac Refrigeration Technician/Techni krystal ID = [id number] for NW JONATHANKU, EVELIA (CELLAVISION MANUAL DIFF)2023-07-23 07:06:44 Test Item Value Reference Range Interpretation Comments NEUTROPHILS - REL 79 % (CELLAVISION)(BEAKER) (test code = 2816) LYMPHOCYTES - REL 15 % (CELLAVISION)(BEAKER) (test code = 2817) MONOCYTES - REL 3 % (CELLAVISION)(BEAKER) (test code = 2818) EOSINOPHILS - REL 1 % (CELLAVISION)(BEAKER) (test code = 2819) BASOPHILS - REL 1 % (CELLAVISION)(BEAKER) (test code = 2820) ATYPICAL LYMPHOCYTES - REL 1 % 0-0 H (CELLAVISION)(BEAKER) (test code = 2829) NEUTROPHILS - ABS 12.72 K/ul 1.78-5.38 H (CELLAVISION)(BEAKER) (test code = 2830) LYMPHOCYTES - ABS 2.42 K/ul 1.32-3.57 (CELLAVISION)(BEAKER) (test code = 2831) MONOCYTES - ABS 0.48 K/uL 0.30-0.82 (CELLAVISION)(BEAKER) (test code = 2832) EOSINOPHILS - ABS 0.16 K/uL 0.04-0.54 (CELLAVISION)(BEAKER) (test code = 2834) BASOPHILS - ABS 0.16 K/uL 0.01-0.08 H (CELLAVISION)(BEAKER) (test code = 2835) ATYPICAL LYMPHOCYTES - ABS 0.16 K/uL 0.00-0.00 H (CELLAVISION)(BEAKER) (test code = 2858) TOTAL COUNTED (BEAKER) (test code 100 = 1351) WBC MORPHOLOGY (BEAKER) (test code Normal = 487) GIANT PLATELETS (BEAKER) (test Present code = 313) POLYCHROMATOPHILLIC RBCS(BEAKER) 1+ few (test code = 478) ARTIFACT (CELLAVISION)(BEAKER) Present (test code = 3432) PLATELET CONCENTRATION Adequate (CELLAVISION)(BEAKER) (test code = 3438) Hvac Refrigeration Technician ID - Christy Carrillo comments: Slide comments:CBC W/PLT COUNT & AUTO [id number] 07:06:43 Test Item Value Reference Range Interpretation Comments WHITE BLOOD CELL COUNT (BEAKER) 16.1 K/ L 3.5-10.5 H (test code = 775) RED BLOOD CELL COUNT (BEAKER) 2.71 M/ L 4.63-6.08 L (test code = 761) HEMOGLOBIN (BEAKER) (test code = 8.5 GM/DL 13.7-17.5 L 410) HEMATOCRIT (BEAKER) (test code = 25.7 % 40.1-51.0 L 411) MEAN CORPUSCULAR VOLUME (BEAKER) 95 fL 79-92 H (test code = 753) MEAN CORPUSCULAR HEMOGLOBIN 31.4 pg 25.7-32.2 (BEAKER) (test code = 751) MEAN CORPUSCULAR HEMOGLOBIN CONC 33.1 GM/DL 32.3-36.5 (BEAKER) (test code = 752) RED CELL DISTRIBUTION WIDTH 14.4 % 11.6-14.4 (BEAKER) (test code = 412) PLATELET COUNT (BEAKER) (test 377 K/CU MM 150-450 code = 756) MEAN PLATELET VOLUME (BEAKER) 9.9 fL 9.4-12.4 (test code = 754) NUCLEATED RED BLOOD CELLS 0 /100 WBC 0-0 (BEAKER) (test code = 413) [id number] 06:14:48 Test Item Value Reference Range Interpretation Comments PHOSPHORUS (BEAKER) (test code = 2.9 mg/dL 2.3-4.7 604) Hvac Refrigeration Technician ID - ADMINBASIC METABOLIC [id number] 06:14:47 Test Item Value Reference Range Interpretation Comments SODIUM (BEAKER) 142 meq/L 136-145 (test code = 381) POTASSIUM 3.8 meq/L 3.5-5.1 (BEAKER) (test code = 379) CHLORIDE (BEAKER) 106 meq/L 98-107 (test code = 382) CO2 (BEAKER) 30 meq/L 22-29 H (test code = 355) BLOOD UREA 14 mg/dL 7-21 NITROGEN (BEAKER) (test code = 354) CREATININE 0.61 mg/dL 0.57-1.25 (BEAKER) (test code = 358) GLUCOSE RANDOM 114 mg/dL 70-105 H (BEAKER) (test code = 652) CALCIUM (BEAKER) 8.4 mg/dL 8.4-10.2 (test code = 697) EGFR (BEAKER) 98 Interpretatio n of eGFR (test code = mL/min/1.73 values Stage De scription 1092) sq m Result G1 Haleigh l or high >=90 G2 Mildly decreased 60-89 G3a Mildl y to moderately 45-5 9 G3b Moderately to s everely 30-44 G4 Severl y decreased 15-29 G5 Kidney failure <15Reported eGF R is based on the CKD-EPI 2020 equation that d oes not use a race coefficientEsti mated GFR is not as accur ate as Creatinine Cristina jeanine in predicting glom erular filtration rate . Estimated GFR is not appl icable for dialysis patien ts Hvac Refrigeration Technician ID - [id number] 06:14:47 Test Item Value Reference Range Interpretation Comments MAGNESIUM (BEAKER) (test code = 2.0 mg/dL 1.6-2.6 627) Hvac Refrigeration Technician ID - ADMINPOCT-GLUCOSE [id number] 21:11:07 Test Item Value Reference Range Interpretation Comments POC-GLUCOSE METER 189 mg/dL 70-110 H : TESTED A T [facility] 6720 (BEAKER) (test code = [facility], 1538) [id number]: Hvac Refrigeration Technician/Techni krystal ID = [id number] for MCKAYLA SANTOS POCT-GLUCOSE [id number] 16:53:06 Test Item Value Reference Range Interpretation Comments POC-GLUCOSE METER 133 mg/dL 70-110 H : TESTED A T [facility] 6720 (BEAKER) (test code = [facility], 1538) [id number]: Hvac Refrigeration Technician/Techni krystal ID = [id number] for [place] LLIAMS, TYNEKA POCT-GLUCOSE [id number] 13:01:10 Test Item Value Reference Range Interpretation Comments POC-GLUCOSE METER 138 mg/dL 70-110 H : TESTED A T [facility] 6720 (BEAKER) (test code = [facility], 1538) [id number]: Hvac Refrigeration Technician/Techni krystal ID = [id number] for [place] LLIAMS, TYNEKA XR ABDOMEN/KUB 1 VIEW [id number] 10:03:55 [facility] 1945 Sex: MEXAMINATION: XR ABDOMEN/KUB 1 VIEW PORTABLE INDICATION: nausea, vomitingCOMPARISON: None FINDINGS/IMPRESSION:Air-filled mildly prominent small bowel loops noted throughout theabdomen. Bowel gas is seen in nondilated colon. Small amount of retainedfeces also seen in the ascending colon. This may represent general izedileus versus partial obstruction. No radiographically apparent urinarycalculi. No acute osseous injury.Electronically Signed By: Ligia Cunningham07/22/2023 10:05 CDTWorkstation Name: [id number] 07:26:43 Test Item Value Reference Range Interpretation Comments POC-GLUCOSE METER 124 mg/dL 70-110 H : TESTED A T [facility] 6720 (BEAKER) (test code = [place], 1538) [id number]: Hvac Refrigeration Technician/Techni krystal ID = [id number] for DERRICK COFFMAN (CELLAVISION MANUAL DIFF)2023-07-22 05:58:39 Test Item Value Reference Range Interpretation Comments NEUTROPHILS - REL 83 % (CELLAVISION)(BEAKER) (test code = 2816) LYMPHOCYTES - REL 10 % (CELLAVISION)(BEAKER) (test code = 2817) MONOCYTES - REL 6 % (CELLAVISION)(BEAKER) (test code = 2818) EOSINOPHILS - REL 1 % (CELLAVISION)(BEAKER) (test code = 2819) NEUTROPHILS - ABS 15.85 K/ul 1.78-5.38 H (CELLAVISION)(BEAKER) (test code = 2830) LYMPHOCYTES - ABS 1.91 K/ul 1.32-3.57 (CELLAVISION)(BEAKER) (test code = 2831) MONOCYTES - ABS 1.15 K/uL 0.30-0.82 H (CELLAVISION)(BEAKER) (test code = 2832) EOSINOPHILS - ABS 0.19 K/uL 0.04-0.54 (CELLAVISION)(BEAKER) (test code = 2834) TOTAL COUNTED (BEAKER) (test code 100 = 1351) WBC MORPHOLOGY (BEAKER) (test code Normal = 487) GIANT PLATELETS (BEAKER) (test Present code = 313) POIKILOCYTES (BEAKER) (test code = 1+ few 966) OVALOCYTES (BEAKER) (test code = 1+ few 477) NANCY CELLS (BEAKER) (test code = 1+ few 474) ARTIFACT (CELLAVISION)(BEAKER) Present (test code = 3432) PLATELET CONCENTRATION Adequate (CELLAVISION)(BEAKER) (test code = 3438) Hvac Refrigeration Technician ID - Devorah Jennifer comments: Slide comments:CBC W/PLT COUNT & AUTO [id number] 05:58:38 Test Item Value Reference Range Interpretation Comments WHITE BLOOD CELL COUNT (BEAKER) 19.1 K/ L 3.5-10.5 H (test code = 775) RED BLOOD CELL COUNT (BEAKER) 2.72 M/ L 4.63-6.08 L (test code = 761) HEMOGLOBIN (BEAKER) (test code = 8.3 GM/DL 13.7-17.5 L 410) HEMATOCRIT (BEAKER) (test code = 25.4 % 40.1-51.0 L 411) MEAN CORPUSCULAR VOLUME (BEAKER) 93 fL 79-92 H (test code = 753) MEAN CORPUSCULAR HEMOGLOBIN 30.5 pg 25.7-32.2 (BEAKER) (test code = 751) MEAN CORPUSCULAR HEMOGLOBIN CONC 32.7 GM/DL 32.3-36.5 (BEAKER) (test code = 752) RED CELL DISTRIBUTION WIDTH 13.8 % 11.6-14.4 (BEAKER) (test code = 412) PLATELET COUNT (BEAKER) (test 318 K/CU MM 150-450 code = 756) MEAN PLATELET VOLUME (BEAKER) 9.8 fL 9.4-12.4 (test code = 754) NUCLEATED RED BLOOD CELLS 0 /100 WBC 0-0 (BEAKER) (test code = 413) BASIC METABOLIC [id number] 05:38:58 Test Item Value Reference Range Interpretation Comments SODIUM (BEAKER) 142 meq/L 136-145 (test code = 381) POTASSIUM 3.5 meq/L 3.5-5.1 (BEAKER) (test code = 379) CHLORIDE (BEAKER) 105 meq/L 98-107 (test code = 382) CO2 (BEAKER) 28 meq/L 22-29 (test code = 355) BLOOD UREA 16 mg/dL 7-21 NITROGEN (BEAKER) (test code = 354) CREATININE 0.60 mg/dL 0.57-1.25 (BEAKER) (test code = 358) GLUCOSE RANDOM 153 mg/dL 70-105 H (BEAKER) (test code = 652) CALCIUM (BEAKER) 8.2 mg/dL 8.4-10.2 L (test code = 697) EGFR (BEAKER) 98 Interpretatio n of eGFR (test code = mL/min/1.73 values Stage De scription 1092) sq m Result G1 Haleigh l or high >=90 G2 Mildly decreased 60-89 G3a Mildl y to moderately 45-5 9 G3b Moderately to s everely 30-44 G4 Severl y decreased 15-29 G5 Kidney failure <15Reported eGF R is based on the CKD-EPI 2020 equation that d oes not use a race coefficientEsti mated GFR is not as accur ate as Creatinine Cristina jeanine in predicting glom erular filtration rate . Estimated GFR is not appl icable for dialysis patien ts Hvac Refrigeration Technician ID - [id number] 05:38:58 Test Item Value Reference Range Interpretation Comments MAGNESIUM (BEAKER) (test code = 1.9 mg/dL 1.6-2.6 627) Hvac Refrigeration Technician ID - [id number] 05:38:58 Test Item Value Reference Range Interpretation Comments PHOSPHORUS (BEAKER) (test code = 3.0 mg/dL 2.3-4.7 604) Hvac Refrigeration Technician ID - ADMINPOCT-GLUCOSE [id number] 21:03:38 Test Item Value Reference Range Interpretation Comments POC-GLUCOSE METER 180 mg/dL 70-110 H : TESTED A T [facility] 6720 (BEAKER) (test code = [facility], 1538) [address]: Hvac Refrigeration Technician/Techni krystal ID = [id number] for Divina Martin POCT-GLUCOSE [id number] 17:11:12 Test Item Value Reference Range Interpretation Comments POC-GLUCOSE METER 154 mg/dL 70-110 H : TESTED A T [facility] 6720 (BEAKER) (test code = [facility], 1538) 570[address]: Hvac Refrigeration Technician/Techni krystal ID = [id number] for Kamla Manzano POCT-GLUCOSE [id number] 11:12:22 Test Item Value Reference Range Interpretation Comments POC-GLUCOSE METER 197 mg/dL 70-110 H : TESTED A T [facility] 6720 (BEAKER) (test code = [facility], 1538) 348[address]: Hvac Refrigeration Technician/Techni krystal ID = [id number] for Kamla Manzano POCT-GLUCOSE [id number] 09:06:28 Test Item Value Reference Range Interpretation Comments POC-GLUCOSE METER 128 mg/dL 70-110 H : TESTED A T [facility] 6720 (BEAKER) (test code = [facility], 1538) 564[address]: Hvac Refrigeration Technician/Techni krystal ID = [id number] for Kamla Manzano (CELLAVISION MANUAL DIFF)2023-07-21 05:40:55 Test Item Value Reference Range Interpretation Comments NEUTROPHILS - REL 80 % (CELLAVISION)(BEAKER) (test code = 2816) LYMPHOCYTES - REL 10 % (CELLAVISION)(BEAKER) (test code = 2817) MONOCYTES - REL 8 % (CELLAVISION)(BEAKER) (test code = 2818) EOSINOPHILS - REL 1 % (CELLAVISION)(BEAKER) (test code = 2819) BASOPHILS - REL 1 % (CELLAVISION)(BEAKER) (test code = 2820) NEUTROPHILS - ABS 12.24 K/ul 1.78-5.38 H (CELLAVISION)(BEAKER) (test code = 2830) LYMPHOCYTES - ABS 1.53 K/ul 1.32-3.57 (CELLAVISION)(BEAKER) (test code = 2831) MONOCYTES - ABS 1.22 K/uL 0.30-0.82 H (CELLAVISION)(BEAKER) (test code = 2832) EOSINOPHILS - ABS 0.15 K/uL 0.04-0.54 (CELLAVISION)(BEAKER) (test code = 2834) BASOPHILS - ABS 0.15 K/uL 0.01-0.08 H (CELLAVISION)(BEAKER) (test code = 2835) TOTAL COUNTED (BEAKER) (test code 100 = 1351) WBC MORPHOLOGY (BEAKER) (test code Normal = 487) GIANT PLATELETS (BEAKER) (test Present code = 313) ANISOCYTOSIS (BEAKER) (test code = 1+ few 961) POIKILOCYTES (BEAKER) (test code = 1+ few 966) OVALOCYTES (BEAKER) (test code = 1+ few 477) ARTIFACT (CELLAVISION)(BEAKER) Present (test code = 3432) PLATELET CONCENTRATION Adequate (CELLAVISION)(BEAKER) (test code = 3438) Hvac Refrigeration Technician ID - Devorah Rodriguez comments: Slide comments:CBC W/PLT COUNT & AUTO [id number] 05:40:54 Test Item Value Reference Range Interpretation Comments WHITE BLOOD CELL COUNT (BEAKER) 15.3 K/ L 3.5-10.5 H (test code = 775) RED BLOOD CELL COUNT (BEAKER) 2.78 M/ L 4.63-6.08 L (test code = 761) HEMOGLOBIN (BEAKER) (test code = 8.6 GM/DL 13.7-17.5 L 410) HEMATOCRIT (BEAKER) (test code = 26.1 % 40.1-51.0 L 411) MEAN CORPUSCULAR VOLUME (BEAKER) 94 fL 79-92 H (test code = 753) MEAN CORPUSCULAR HEMOGLOBIN 30.9 pg 25.7-32.2 (BEAKER) (test code = 751) MEAN CORPUSCULAR HEMOGLOBIN CONC 33.0 GM/DL 32.3-36.5 (BEAKER) (test code = 752) RED CELL DISTRIBUTION WIDTH 13.4 % 11.6-14.4 (BEAKER) (test code = 412) PLATELET COUNT (BEAKER) (test 265 K/CU MM 150-450 code = 756) MEAN PLATELET VOLUME (BEAKER) 10.2 fL 9.4-12.4 (test code = 754) NUCLEATED RED BLOOD CELLS 0 /100 WBC 0-0 (BEAKER) (test code = 413) BASIC METABOLIC [id number] 05:39:10 Test Item Value Reference Range Interpretation Comments SODIUM (BEAKER) 143 meq/L 136-145 (test code = 381) POTASSIUM 3.9 meq/L 3.5-5.1 (BEAKER) (test code = 379) CHLORIDE (BEAKER) 105 meq/L 98-107 (test code = 382) CO2 (BEAKER) 30 meq/L 22-29 H (test code = 355) BLOOD UREA 10 mg/dL 7-21 NITROGEN (BEAKER) (test code = 354) CREATININE 0.61 mg/dL 0.57-1.25 (BEAKER) (test code = 358) GLUCOSE RANDOM 124 mg/dL 70-105 H (BEAKER) (test code = 652) CALCIUM (BEAKER) 8.5 mg/dL 8.4-10.2 (test code = 697) EGFR (BEAKER) 98 Interpretatio n of eGFR (test code = mL/min/1.73 values Stage De scription 1092) sq m Result G1 Haleigh l or high >=90 G2 Mildly decreased 60-89 G3a Mildl y to moderately 45-5 9 G3b Moderately to s everely 30-44 G4 Severl y decreased 15-29 G5 Kidney failure <15Reported eGF R is based on the CKD-EPI 2020 equation that d oes not use a race coefficientEsti mated GFR is not as accur ate as Creatinine Cristina solorzano in predicting glom erular filtration rate . Estimated GFR is not appl icable for dialysis patien ts Hvac Refrigeration Technician ID - [id number] 05:39:10 Test Item Value Reference Range Interpretation Comments MAGNESIUM (BEAKER) (test code = 2.0 mg/dL 1.6-2.6 627) Hvac Refrigeration Technician ID - [id number] 05:39:10 Test Item Value Reference Range Interpretation Comments PHOSPHORUS (BEAKER) (test code = 3.0 mg/dL 2.3-4.7 604) Hvac Refrigeration Technician ID - LINDAOPOCT-GLUCOSE [id number] 21:52:31 Test Item Value Reference Range Interpretation Comments POC-GLUCOSE METER 159 mg/dL 70-110 H : TESTED A T [facility] 6720 (BEAKER) (test code = [place], 1538) [address]: Hvac Refrigeration Technician/Techni krystal ID = [id number] for Divina Martin POCT-GLUCOSE [id number] 18:13:00 Test Item Value Reference Range Interpretation Comments POC-GLUCOSE METER 134 mg/dL 70-110 H : TESTED A T [facility] 6720 (BEAKER) (test code = [place] [facility], 1538) [address]: Hvac Refrigeration Technician/Techni krystal ID = [id number] for Torri Mack HEMOGLOBIN [id number] 11:18:47 Test Item Value Reference Range Interpretation Comments HEMOGLOBIN A1C 5.9 % See_Comment H [Automated m essage] ELECTROPHORESIS (BEAKER) The system which (test code = 3811) generated this result transmitted ref erence range: <=5.6%. The reference range was not used to int erpret this result as normal/abnormal . "The A1c is measured using a NGSP-certified method. HbA1c value equal to or greater than 6.5% as thediagnosis cutoff for diabetes. An HbA1c value of 5.7- 6.4% indicates increased risk for diabetes (prediabetes)."Hvac Refrigeration Technician ID - ADM (CELLAVISION MANUAL DIFF)2023-07-20 06:20:08 Test Item Value Reference Range Interpretation Comments NEUTROPHILS - REL 83 % (CELLAVISION)(BEAKER) (test code = 2816) LYMPHOCYTES - REL 9 % (CELLAVISION)(BEAKER) (test code = 2817) MONOCYTES - REL 3 % (CELLAVISION)(BEAKER) (test code = 2818) EOSINOPHILS - REL 2 % (CELLAVISION)(BEAKER) (test code = 2819) BASOPHILS - REL 3 % (CELLAVISION)(BEAKER) (test code = 2820) NEUTROPHILS - ABS 13.03 K/ul 1.78-5.38 H (CELLAVISION)(BEAKER) (test code = 2830) LYMPHOCYTES - ABS 1.41 K/ul 1.32-3.57 (CELLAVISION)(BEAKER) (test code = 2831) MONOCYTES - ABS 0.47 K/uL 0.30-0.82 (CELLAVISION)(BEAKER) (test code = 2832) EOSINOPHILS - ABS 0.31 K/uL 0.04-0.54 (CELLAVISION)(BEAKER) (test code = 2834) BASOPHILS - ABS 0.47 K/uL 0.01-0.08 H (CELLAVISION)(BEAKER) (test code = 2835) TOTAL COUNTED (BEAKER) (test code 100 = 1351) PLT MORPHOLOGY (BEAKER) (test code Normal = 486) SMUDGE CELLS (BEAKER) (test code = Present 1371) ANISOCYTOSIS (BEAKER) (test code = 1+ few 961) MICROCYTES (BEAKER) (test code = 1+ few 965) POIKILOCYTES (BEAKER) (test code = 1+ few 966) SPHEROCYTES (BEAKER) (test code = 1+ few 768) PLATELET CONCENTRATION Adequate (CELLAVISION)(BEAKER) (test code = 3438) Hvac Refrigeration Technician ID - Hannah comments: Slide comments:CBC W/PLT COUNT & AUTO [id number] 06:20:07 Test Item Value Reference Range Interpretation Comments WHITE BLOOD CELL COUNT (BEAKER) 15.7 K/ L 3.5-10.5 H (test code = 775) RED BLOOD CELL COUNT (BEAKER) 2.64 M/ L 4.63-6.08 L (test code = 761) HEMOGLOBIN (BEAKER) (test code = 8.0 GM/DL 13.7-17.5 L 410) HEMATOCRIT (BEAKER) (test code = 24.4 % 40.1-51.0 L 411) MEAN CORPUSCULAR VOLUME (BEAKER) 92 fL 79-92 (test code = 753) MEAN CORPUSCULAR HEMOGLOBIN 30.3 pg 25.7-32.2 (BEAKER) (test code = 751) MEAN CORPUSCULAR HEMOGLOBIN CONC 32.8 GM/DL 32.3-36.5 (BEAKER) (test code = 752) RED CELL DISTRIBUTION WIDTH 13.4 % 11.6-14.4 (BEAKER) (test code = 412) PLATELET COUNT (BEAKER) (test 218 K/CU MM 150-450 code = 756) MEAN PLATELET VOLUME (BEAKER) 10.9 fL 9.4-12.4 (test code = 754) NUCLEATED RED BLOOD CELLS 0 /100 WBC 0-0 (BEAKER) (test code = 413) [id number] 05:57:30 Test Item Value Reference Range Interpretation Comments PHOSPHORUS (BEAKER) (test code = 2.7 mg/dL 2.3-4.7 604) Hvac Refrigeration Technician ID - ADMINBASIC METABOLIC [id number] 05:57:29 Test Item Value Reference Range Interpretation Comments SODIUM (BEAKER) 144 meq/L 136-145 (test code = 381) POTASSIUM 3.5 meq/L 3.5-5.1 (BEAKER) (test code = 379) CHLORIDE (BEAKER) 107 meq/L 98-107 (test code = 382) CO2 (BEAKER) 30 meq/L 22-29 H (test code = 355) BLOOD UREA 12 mg/dL 7-21 NITROGEN (BEAKER) (test code = 354) CREATININE 0.56 mg/dL 0.57-1.25 L (BEAKER) (test code = 358) GLUCOSE RANDOM 117 mg/dL 70-105 H (BEAKER) (test code = 652) CALCIUM (BEAKER) 8.5 mg/dL 8.4-10.2 (test code = 697) EGFR (BEAKER) 100 Interpretatio n of eGFR (test code = mL/min/1.73 values Stage De scription 1092) sq m Result G1 Haleigh l or high >=90 G2 Mildly decreased 60-89 G3a Mildl y to moderately 45-5 9 G3b Moderately to s everely 30-44 G4 Severl y decreased 15-29 G5 Kidney failure <15Reported eGF R is based on the CKD-EPI 2020 equation that d oes not use a race coefficientEsti mated GFR is not as accur ate as Creatinine Cristina solorzano in predicting glom erular filtration rate . Estimated GFR is not appl icable for dialysis patien ts Hvac Refrigeration Technician ID - [id number] 05:57:29 Test Item Value Reference Range Interpretation Comments MAGNESIUM (BEAKER) (test code = 2.0 mg/dL 1.6-2.6 627) Hvac Refrigeration Technician ID - ADMINHEMOGLOBIN AND [id number] 18:25:24 Test Item Value Reference Range Interpretation Comments HEMOGLOBIN (BEAKER) (test code = 8.9 GM/DL 13.7-17.5 L 410) HEMATOCRIT (BEAKER) (test code = 26.6 % 40.1-51.0 L 411) Hvac Refrigeration Technician ID - 6000POCT-GLUCOSE [id number] 16:50:31 Test Item Value Reference Range Interpretation Comments POC-GLUCOSE METER 160 mg/dL 70-110 H : TESTED A T [facility] 6720 (BEAKER) (test code = [place], 1538) [address]: Hvac Refrigeration Technician/Techni krystal ID = [id number] for NW EVELIA CRAWFORD (CELLAVISION MANUAL DIFF)2023 05:24:50 Test Item Value Reference Range Interpretation Comments NEUTROPHILS - REL 79 % (CELLAVISION)(BEAKER) (test code = 2816) LYMPHOCYTES - REL 10 % (CELLAVISION)(BEAKER) (test code = 2817) MONOCYTES - REL 10 % (CELLAVISION)(BEAKER) (test code = 2818) EOSINOPHILS - REL 1 % (CELLAVISION)(BEAKER) (test code = 2819) NEUTROPHILS - ABS 12.64 K/ul 1.78-5.38 H (CELLAVISION)(BEAKER) (test code = 2830) LYMPHOCYTES - ABS 1.60 K/ul 1.32-3.57 (CELLAVISION)(BEAKER) (test code = 2831) MONOCYTES - ABS 1.60 K/uL 0.30-0.82 H (CELLAVISION)(BEAKER) (test code = 2832) EOSINOPHILS - ABS 0.16 K/uL 0.04-0.54 (CELLAVISION)(BEAKER) (test code = 2834) TOTAL COUNTED (BEAKER) (test code 100 = 1351) WBC MORPHOLOGY (BEAKER) (test Normal code = 487) PLT MORPHOLOGY (BEAKER) (test Normal code = 486) POLYCHROMATOPHILLIC RBCS(BEAKER) 1+ few (test code = 478) ANISOCYTOSIS (BEAKER) (test code 2+ moderate = 961) MICROCYTES (BEAKER) (test code = 2+ moderate 965) POIKILOCYTES (BEAKER) (test code 1+ few = 966) OVALOCYTES (BEAKER) (test code = 1+ few 477) ARTIFACT (CELLAVISION)(BEAKER) Present (test code = 3432) PLATELET CONCENTRATION Adequate (CELLAVISION)(BEAKER) (test code = 3438) Hvac Refrigeration Technician ID - Devorah Rodriguez comments: Slide comments:CBC W/PLT COUNT & AUTO [id number] 05:24:49 Test Item Value Reference Range Interpretation Comments WHITE BLOOD CELL COUNT (BEAKER) 16.0 K/ L 3.5-10.5 H (test code = 775) RED BLOOD CELL COUNT (BEAKER) 2.60 M/ L 4.63-6.08 L (test code = 761) HEMOGLOBIN (BEAKER) (test code = 7.9 GM/DL 13.7-17.5 L 410) HEMATOCRIT (BEAKER) (test code = 23.9 % 40.1-51.0 L 411) MEAN CORPUSCULAR VOLUME (BEAKER) 92 fL 79-92 (test code = 753) MEAN CORPUSCULAR HEMOGLOBIN 30.4 pg 25.7-32.2 (BEAKER) (test code = 751) MEAN CORPUSCULAR HEMOGLOBIN CONC 33.1 GM/DL 32.3-36.5 (BEAKER) (test code = 752) RED CELL DISTRIBUTION WIDTH 13.3 % 11.6-14.4 (BEAKER) (test code = 412) PLATELET COUNT (BEAKER) (test 198 K/CU MM 150-450 code = 756) MEAN PLATELET VOLUME (BEAKER) 10.8 fL 9.4-12.4 (test code = 754) NUCLEATED RED BLOOD CELLS 0 /100 WBC 0-0 (BEAKER) (test code = 413) POCT-GLUCOSE [id number] 05:02:41 Test Item Value Reference Range Interpretation Comments POC-GLUCOSE METER 131 mg/dL 70-110 H : [facility] (BEAKER[facility] (test code = [place], 1538) [address]: Hvac Refrigeration Technician/Techni krystal ID = [id number] for ROBERT DALAL [id number] 04:18:57 Test Item Value Reference Range Interpretation Comments MAGNESIUM (BEAKER) (test code = 2.1 mg/dL 1.6-2.6 627) Hvac Refrigeration Technician ID - [id number] 04:18:57 Test Item Value Reference Range Interpretation Comments PHOSPHORUS (BEAKER) (test code = 1.9 mg/dL 2.3-4.7 L 604) Hvac Refrigeration Technician ID - mmBASIC METABOLIC [id number] 04:18:56 Test Item Value Reference Range Interpretation Comments SODIUM (BEAKER) 141 meq/L 136-145 (test code = 381) POTASSIUM 3.5 meq/L 3.5-5.1 (BEAKER) (test code = 379) CHLORIDE (BEAKER) 107 meq/L 98-107 (test code = 382) CO2 (BEAKER) 28 meq/L 22-29 (test code = 355) BLOOD UREA 20 mg/dL 7-21 NITROGEN (BEAKER) (test code = 354) CREATININE 0.61 mg/dL 0.57-1.25 (BEAKER) (test code = 358) GLUCOSE RANDOM 117 mg/dL 70-105 H (BEAKER) (test code = 652) CALCIUM (BEAKER) 8.4 mg/dL 8.4-10.2 (test code = 697) EGFR (BEAKER) 98 Interpretatio n of eGFR (test code = mL/min/1.73 values Stage De scription 1092) sq m Result G1 Haleigh l or high >=90 G2 Mildly decreased 60-89 G3a Mildl y to moderately 45-5 9 G3b Moderately to s everely 30-44 G4 Severl y decreased 15-29 G5 Kidney failure <15Reported eGF R is based on the CKD-EPI 2020 equation that d oes not use a race coefficientEsti mated GFR is not as accur ate as Creatinine Cristina solorzano in predicting glom erular filtration rate . Estimated GFR is not appl icable for dialysis patien ts Hvac Refrigeration Technician ID - mmPOCT-GLUCOSE [id number] 21:21:42 Test Item Value Reference Range Interpretation Comments POC-GLUCOSE METER 183 mg/dL 70-110 H : TESTED A T [facility] 6720 (BEAKER) (test code = [place], 1538) [address]: Hvac Refrigeration Technician/Techni krystal ID = [id number] for ROBERT DALAL POCT-GLUCOSE [id number] 16:53:13 Test Item Value Reference Range Interpretation Comments POC-GLUCOSE METER 134 mg/dL 70-110 H : TESTED A T [facility] 6720 (BEAKER) (test code = [facility], 1538) 23480: Hvac Refrigeration Technician/Techni krystal ID = [id number] for Leila Gamboa POCT-GLUCOSE [id number] 11:18:08 Test Item Value Reference Range Interpretation Comments POC-GLUCOSE METER 175 mg/dL 70-110 H : TESTED A T [facility] 6720 (BEAKER) (test code = [facility], 1538) 445[address]: Hvac Refrigeration Technician/Techni krystal ID = [id number] for Bu iKeysha POCT-GLUCOSE [id number] 08:29:56 Test Item Value Reference Range Interpretation Comments POC-GLUCOSE METER 199 mg/dL 70-110 H : TESTED A T [facility] 6720 (BEAKER) (test code = [facility], 1538) 50132: Hvac Refrigeration Technician/Techni krystal ID = [id number] for Bu iNellieKeysha (CELLAVISION MANUAL DIFF)2023-07-18 05:04:38 Test Item Value Reference Range Interpretation Comments NEUTROPHILS - REL 80 % (CELLAVISION)(BEAKER) (test code = 2816) LYMPHOCYTES - REL 6 % (CELLAVISION)(BEAKER) (test code = 2817) MONOCYTES - REL 12 % (CELLAVISION)(BEAKER) (test code = 2818) BASOPHILS - REL 1 % (CELLAVISION)(BEAKER) (test code = 2820) ATYPICAL LYMPHOCYTES - REL 1 % 0-0 H (CELLAVISION)(BEAKER) (test code = 2829) NEUTROPHILS - ABS 18.72 K/ul 1.78-5.38 H (CELLAVISION)(BEAKER) (test code = 2830) LYMPHOCYTES - ABS 1.40 K/ul 1.32-3.57 (CELLAVISION)(BEAKER) (test code = 2831) MONOCYTES - ABS 2.81 K/uL 0.30-0.82 H (CELLAVISION)(BEAKER) (test code = 2832) BASOPHILS - ABS 0.23 K/uL 0.01-0.08 H (CELLAVISION)(BEAKER) (test code = 2835) ATYPICAL LYMPHOCYTES - ABS 0.23 K/uL 0.00-0.00 H (CELLAVISION)(BEAKER) (test code = 2858) TOTAL COUNTED (BEAKER) (test code 100 = 1351) RBC MORPHOLOGY (BEAKER) (test code Normal = 762) PLT MORPHOLOGY (BEAKER) (test code Normal = 486) SMUDGE CELLS (BEAKER) (test code = Present 1371) PLATELET CONCENTRATION Adequate (CELLAVISION)(BEAKER) (test code = 3438) Hvac Refrigeration Technician ID - Hannah comments: Slide comments:CBC W/PLT COUNT & AUTO [id number] 05:04:37 Test Item Value Reference Range Interpretation Comments WHITE BLOOD CELL COUNT (BEAKER) 23.4 K/ L 3.5-10.5 H (test code = 775) RED BLOOD CELL COUNT (BEAKER) 3.12 M/ L 4.63-6.08 L (test code = 761) HEMOGLOBIN (BEAKER) (test code = 9.6 GM/DL 13.7-17.5 L 410) HEMATOCRIT (BEAKER) (test code = 28.9 % 40.1-51.0 L 411) MEAN CORPUSCULAR VOLUME (BEAKER) 93 fL 79-92 H (test code = 753) MEAN CORPUSCULAR HEMOGLOBIN 30.8 pg 25.7-32.2 (BEAKER) (test code = 751) MEAN CORPUSCULAR HEMOGLOBIN CONC 33.2 GM/DL 32.3-36.5 (BEAKER) (test code = 752) RED CELL DISTRIBUTION WIDTH 13.2 % 11.6-14.4 (BEAKER) (test code = 412) PLATELET COUNT (BEAKER) (test 205 K/CU MM 150-450 code = 756) MEAN PLATELET VOLUME (BEAKER) 10.5 fL 9.4-12.4 (test code = 754) NUCLEATED RED BLOOD CELLS 0 /100 WBC 0-0 (BEAKER) (test code = 413) BASIC METABOLIC [id number] 03:15:19 Test Item Value Reference Range Interpretation Comments SODIUM (BEAKER) 142 meq/L 136-145 (test code = 381) POTASSIUM 3.3 meq/L 3.5-5.1 L (BEAKER) (test code = 379) CHLORIDE (BEAKER) 108 meq/L 98-107 H (test code = 382) CO2 (BEAKER) 26 meq/L 22-29 (test code = 355) BLOOD UREA 18 mg/dL 7-21 NITROGEN (BEAKER) (test code = 354) CREATININE 0.55 mg/dL 0.57-1.25 L (BEAKER) (test code = 358) GLUCOSE RANDOM 134 mg/dL 70-105 H (BEAKER) (test code = 652) CALCIUM (BEAKER) 8.5 mg/dL 8.4-10.2 (test code = 697) EGFR (BEAKER) 101 Interpretatio n of eGFR (test code = mL/min/1.73 values Stage De scription 1092) sq m Result G1 Haleigh l or high >=90 G2 Mildly decreased 60-89 G3a Mild ly to moderately 45-5 9 G3b Moderately to s everely 30-44 G4 Severl y decreased 15-29 G5 Kidney failure <15Reported eGF R is based on the CKD-EPI 2020 equation that d oes not use a race coefficientEsti mated GFR is not as accur ate as Creatinine Cristina jeanine in predicting glom erular filtration rate . Estimated GFR is not appl icable for dialysis patien ts Hvac Refrigeration Technician ID - [id number] 03:15:19 Test Item Value Reference Range Interpretation Comments MAGNESIUM (BEAKER) (test code = 2.0 mg/dL 1.6-2.6 627) Hvac Refrigeration Technician ID - [id number] 03:15:19 Test Item Value Reference Range Interpretation Comments PHOSPHORUS (BEAKER) (test code = 1.8 mg/dL 2.3-4.7 L 604) Hvac Refrigeration Technician ID - ADMINPOCT-GLUCOSE [id number] 21:10:21 Test Item Value Reference Range Interpretation Comments POC-GLUCOSE METER 122 mg/dL 70-110 H : TESTED A T [facility] 6720 (BEAKER) (test code = [place], 1538) [address]: Hvac Refrigeration Technician/Techni krystal ID = [id number] for Sp Giancarlo hankins [id number] 17:12:05 Test Item Value Reference Range Interpretation Comments PREALBUMIN (BEAKER) (test code = 20 mg/dL 14-45 586) Hvac Refrigeration Technician ID - BSPOCT-GLUCOSE [id number] 16:44:07 Test Item Value Reference Range Interpretation Comments POC-GLUCOSE METER 160 mg/dL 70-110 H : TESTED A T [place] [address] (BEAKER) (test code = [facility] Dhruv [facility], 1538) [address]: Hvac Refrigeration Technician/Techni krystal ID = [id number] for SUNNY SANCHEZ [id number] 13:39:33 Test Item Value Reference Range Interpretation Comments ALBUMIN (BEAKER) 3.3 g/dL 3.5-5.0 L Specimen mo derately (test code = 1145) hemolyzed Hvac Refrigeration Technician ID - EMPOCT-GLUCOSE [id number] 12:15:06 Test Item Value Reference Range Interpretation Comments POC-GLUCOSE METER 147 mg/dL 70-110 H : TESTED [place] [address] (RADHA) (test code = [facility] Dhruv [facility], 1538) [address]: Hvac Refrigeration Technician/Techni krystal ID = [id number] for SUNNY SANCHEZ POC ACTIVATED CLOTTING [id number] 06:34:26 Test Item Value Reference Range Interpretation Comments Activated Clotting Time 131 sec : 74 -137 seconds, (test code = 3184-9) Baselin e: TESTED AT [address], [address]: Hvac Refrigeration Technician/Techni krystal ID = [id number] for GA TOBY, KATINA [facility] ACTIVATED CLOTTING [id number] 06:34:26 Test Item Value Reference Range Interpretation Comments Activated Clotting Time 131 sec : 74 -137 seconds, (test code = 3184-9) Baselin e: TESTED AT [address], [address]: Hvac Refrigeration Technician/Techni krystal ID = [id number] for GA TOBY, KATINA [facility] ACTIVATED CLOTTING [id number] 06:34:26 Test Item Value Reference Range Interpretation Comments Activated Clotting Time 131 sec : 74 -137 seconds, (test code = 3184-9) Baselin e: TESTED AT [address], [address]: Hvac Refrigeration Technician/Techni krystal ID = [id number] for GA TOBY, KATINA [facility][id number] 06:34:26 Test Item Value Reference Range Interpretation Comments ACTIVATED CLOTTING TIME 131 sec : 74 -137 seconds, (BEAKER) (test code = Baseli ne: TESTED AT 441) [address], [facility] 30: Hvac Refrigeration Technician/Techni krystal ID = [id number] for KATINA CELESTE [id number] 06:34:02 Test Item Value Reference Range Interpretation Comments ACTIVATED CLOTTING TIME 377 sec : 74 -137 seconds, (BEAKER) (test code = Baseli ne: TESTED AT 441) [address], [facility] 30: Hvac Refrigeration Technician/Techni krystal ID = [id number] for KATINA CELESTE [id number] 06:34:00 Test Item Value Reference Range Interpretation Comments ACTIVATED CLOTTING TIME 245 sec : 74 -137 seconds, (BEAKER) (test code = Baseli ne: TESTED AT [facility]) [address], [facility] 30: Hvac Refrigeration Technician/Techni krystal ID = [id number] for KATINA CELESTE [id number] 06:34:00 Test Item Value Reference Range Interpretation Comments ACTIVATED CLOTTING TIME 269 sec : 74 -137 seconds, (BEAKER) (test code = Baseli ne: TESTED AT [facility]) [address], [facility] 30: Hvac Refrigeration Technician/Techni krystal ID = [id number] for Domenico Laura dent (CELLAVISION MANUAL DIFF)2023-07-17 06:20:52 Test Item Value Reference Range Interpretation Comments NEUTROPHILS - REL 86 % (CELLAVISION)(BEAKER) (test code = 2816) LYMPHOCYTES - REL 3 % (CELLAVISION)(BEAKER) (test code = 2817) MONOCYTES - REL 8 % (CELLAVISION)(BEAKER) (test code = 2818) MYELOCYTES - REL 1 % 0-0 H (CELLAVISION)(BEAKER) (test code = 2822) BANDS - REL (CELLAVISION)(BEAKER) 2 % 0-10 (test code = 2826) NEUTROPHILS - ABS 21.93 K/ul 1.78-5.38 H (CELLAVISION)(BEAKER) (test code = 2830) LYMPHOCYTES - ABS 0.77 K/ul 1.32-3.57 L (CELLAVISION)(BEAKER) (test code = 2831) MONOCYTES - ABS 2.04 K/uL 0.30-0.82 H (CELLAVISION)(BEAKER) (test code = 2832) MYELOCYTES-ABS 0.26 K/uL 0.00-0.00 H (CELLAVISION)(BEAKER) (test code = 2837) BANDS - ABS (CELLAVISION)(BEAKER) 0.51 K/uL 0.00-0.80 (test code = 2840) TOTAL COUNTED (BEAKER) (test code 100 = 1351) RBC MORPHOLOGY (BEAKER) (test code Normal = 762) PLT MORPHOLOGY (BEAKER) (test code Normal = 486) SMUDGE CELLS (BEAKER) (test code = Present 1371) ARTIFACT (CELLAVISION)(BEAKER) Present (test code = 3432) PLATELET CONCENTRATION Adequate (CELLAVISION)(BEAKER) (test code = 3438) Hvac Refrigeration Technician ID - Montytato comments: Slide comments:CBC W/PLT COUNT & AUTO [id number] 06:20:51 Test Item Value Reference Range Interpretation Comments WHITE BLOOD CELL COUNT (BEAKER) 25.5 K/ L 3.5-10.5 H (test code = 775) RED BLOOD CELL COUNT (BEAKER) 3.56 M/ L 4.63-6.08 L (test code = 761) HEMOGLOBIN (BEAKER) (test code = 10.8 GM/DL 13.7-17.5 L 410) HEMATOCRIT (BEAKER) (test code = 33.1 % 40.1-51.0 L 411) MEAN CORPUSCULAR VOLUME (BEAKER) 93 fL 79-92 H (test code = 753) MEAN CORPUSCULAR HEMOGLOBIN 30.3 pg 25.7-32.2 (BEAKER) (test code = 751) MEAN CORPUSCULAR HEMOGLOBIN CONC 32.6 GM/DL 32.3-36.5 (BEAKER) (test code = 752) RED CELL DISTRIBUTION WIDTH 12.9 % 11.6-14.4 (BEAKER) (test code = 412) PLATELET COUNT (BEAKER) (test 216 K/CU MM 150-450 code = 756) MEAN PLATELET VOLUME (BEAKER) 10.6 fL 9.4-12.4 (test code = 754) NUCLEATED RED BLOOD CELLS 0 /100 WBC 0-0 (BEAKER) (test code = 413) [id number] 05:27:41 Test Item Value Reference Range Interpretation Comments MAGNESIUM (BEAKER) (test code = 2.0 mg/dL 1.6-2.6 627) Hvac Refrigeration Technician ID - [id number] 05:27:41 Test Item Value Reference Range Interpretation Comments PHOSPHORUS (BEAKER) (test code = 4.3 mg/dL 2.3-4.7 604) Hvac Refrigeration Technician ID - EMBASIC METABOLIC [id number] 05:27:40 Test Item Value Reference Range Interpretation Comments SODIUM (BEAKER) 142 meq/L 136-145 (test code = 381) POTASSIUM 4.2 meq/L 3.5-5.1 (BEAKER) (test code = 379) CHLORIDE (BEAKER) 108 meq/L 98-107 H (test code = 382) CO2 (BEAKER) 25 meq/L 22-29 (test code = 355) BLOOD UREA 27 mg/dL 7-21 H NITROGEN (BEAKER) (test code = 354) CREATININE 0.80 mg/dL 0.57-1.25 (BEAKER) (test code = 358) GLUCOSE RANDOM 195 mg/dL 70-105 H (BEAKER) (test code = 652) CALCIUM (BEAKER) 8.8 mg/dL 8.4-10.2 (test code = 697) EGFR (BEAKER) 92 Interpretatio n of eGFR (test code = mL/min/1.73 values Stage De scription 1092) sq m Result G1 Haleigh l or high >=90 G2 Mildly decreased 60-89 G3a Mildl y to moderately 45-5 9 G3b Moderately to s everely 30-44 G4 Sever ly decreased 15-29 G5 Kidney failure <15Repo rted eGFR is based on the CKD-EPI 2020 equation t hat does not use a race coefficientEsti mated GFR is not as accur ate as Creatinine Cristina jeanine in predicting glom erular filtration rate . Estimated GFR is not appl icable for dialysis patien ts Hvac Refrigeration Technician ID - EM(CELLAVISION MANUAL DIFF)2023-07-17 01:11:07 Test Item Value Reference Range Interpretation Comments NEUTROPHILS - REL 95 % (CELLAVISION)(BEAKER) (test code = 2816) MONOCYTES - REL 5 % (CELLAVISION)(BEAKER) (test code = 2818) NEUTROPHILS - ABS 26.60 K/ul 1.78-5.38 H (CELLAVISION)(BEAKER) (test code = 2830) MONOCYTES - ABS 1.40 K/uL 0.30-0.82 H (CELLAVISION)(BEAKER) (test code = 2832) TOTAL COUNTED (BEAKER) (test code 100 = 1351) SMUDGE CELLS (BEAKER) (test code = Present 1371) GIANT PLATELETS (BEAKER) (test Present code = 313) POLYCHROMATOPHILLIC RBCS(BEAKER) 1+ few (test code = 478) PLATELET CONCENTRATION Adequate (CELLAVISION)(BEAKER) (test code = 3438) Hvac Refrigeration Technician ID - Nato Manzo comments: Slide comments:CBC W/PLT COUNT & AUTO [id number] 01:11:06 Test Item Value Reference Range Interpretation Comments WHITE BLOOD CELL COUNT (BEAKER) 28.0 K/ L 3.5-10.5 H (test code = 775) RED BLOOD CELL COUNT (BEAKER) 3.57 M/ L 4.63-6.08 L (test code = 761) HEMOGLOBIN (BEAKER) (test code = 11.1 GM/DL 13.7-17.5 L 410) HEMATOCRIT (BEAKER) (test code = 33.4 % 40.1-51.0 L 411) MEAN CORPUSCULAR VOLUME (BEAKER) 94 fL 79-92 H (test code = 753) MEAN CORPUSCULAR HEMOGLOBIN 31.1 pg 25.7-32.2 (BEAKER) (test code = 751) MEAN CORPUSCULAR HEMOGLOBIN CONC 33.2 GM/DL 32.3-36.5 (BEAKER) (test code = 752) RED CELL DISTRIBUTION WIDTH 13.2 % 11.6-14.4 (BEAKER) (test code = 412) PLATELET COUNT (BEAKER) (test 230 K/CU MM 150-450 code = 756) MEAN PLATELET VOLUME (BEAKER) 10.4 fL 9.4-12.4 (test code = 754) NUCLEATED RED BLOOD CELLS 0 /100 WBC 0-0 (BEAKER) (test code = 413) Prepare [id number] 00:43:00 Test Item Value Reference Range Interpretation Comments CROSSMATCH (test code = COMPATIBLE 2264) Unit ABO (test code = O Pos 6368122) UNIT NUMBER (test code = [id number] 934-0) Status (test code = RETURNED FROM ISSUE [id number]) Blood Bank Product (test RED BLOOD CELLS code = 2263) PRODUCT CODE (test code = [id number] 933-2) [facility] [id number] 00:43:00 Test Item Value Reference Range Interpretation Comments CROSSMATCH (test code = COMPATIBLE 4) Unit ABO (test code = O Pos 7312789) UNIT NUMBER (test code = [id number] 934-0) Status (test code = RETURNED FROM ISSUE 7476128) Blood Bank Product (test RED BLOOD CELLS code = 2263) PRODUCT CODE (test code = [id number] 933-2) [facility] [id number] 00:43:00 Test Item Value Reference Range Interpretation Comments CROSSMATCH (test code = COMPATIBLE 2263) Unit ABO (test code = O Pos 7762563) UNIT NUMBER (test code = [id number] 934-0) Status (test code = RETURNED FROM ISSUE 2405378) Blood Bank Product (test RED BLOOD CELLS code = 2263) PRODUCT CODE (test code = [id number] 933-2) [facility] [id number] 00:32:53 Test Item Value Reference Range Interpretation Comments SODIUM (BEAKER) 139 meq/L 136-145 (test code = 381) POTASSIUM 4.6 meq/L 3.5-5.1 (BEAKER) (test code = 379) CHLORIDE (BEAKER) 106 meq/L 98-107 (test code = 382) CO2 (BEAKER) 20 meq/L 22-29 L (test code = 355) BLOOD UREA 27 mg/dL 7-21 H NITROGEN (BEAKER) (test code = 354) CREATININE 0.84 mg/dL 0.57-1.25 (BEAKER) (test code = 358) GLUCOSE RANDOM 171 mg/dL 70-105 H (BEAKER) (test code = 652) CALCIUM (BEAKER) 7.7 mg/dL 8.4-10.2 L (test code = 697) EGFR (BEAKER) 91 Interpretatio n of eGFR (test code = mL/min/1.73 values Stage De scription 1092) sq m Result G1 Haleigh l or high >=90 G2 Mildly decreased 60-89 G3a Mildl y to moderately 45-5 9 G3b Moderately to s everely 30-44 G4 Severl y decreased 15-29 G5 Kidney failure <15Reported eGF R is based on the CKD-EPI 2020 equation that d oes not use a race coefficientEsti mated GFR is not as accur ate as Creatinine Cristina jeanine in predicting glom erular filtration rate . Estimated GFR is not appl icable for dialysis patien ts Hvac Refrigeration Technician ID - [id number] 00:29:21 Test Item Value Reference Range Interpretation Comments PHOSPHORUS (BEAKER) (test code = 4.4 mg/dL 2.3-4.7 604) Hvac Refrigeration Technician ID - [id number] 00:29:20 Test Item Value Reference Range Interpretation Comments MAGNESIUM (BEAKER) (test code = 2.0 mg/dL 1.6-2.6 627) Hvac Refrigeration Technician ID - ADMINPOCT-GLUCOSE [id number] 00:04:16 Test Item Value Reference Range Interpretation Comments POC-GLUCOSE METER 173 mg/dL 70-110 H : TESTED A T [facility] 6720 (BEAKER) (test code = [place], 1538) [address]: Hvac Refrigeration Technician/Techni krystal ID = [id number] for NIKA GORMAN CALCIUM, [id number] 23:02:35 Test Item Value Reference Range Interpretation Comments CALCIUM IONIZED (BEAKER) (test 1.06 mmol/L 1.12-1.27 L code = 698) PH, BLOOD (BEAKER) (test code = 7.35 1810) CALCIUM, [id number] 19:18:38 Test Item Value Reference Range Interpretation Comments CALCIUM IONIZED (BEAKER) (test 0.94 mmol/L 1.12-1.27 L code = 698) PH, BLOOD (BEAKER) (test code = 7.38 1810) Blood gas, [id number] 19:18:37 Test Item Value Reference Range Interpretation Comments pH, Arterial (test code 7.40 7.35-7.45 = 2744-1) pCO2, Arterial (test 44 See_Comment [Autom ated message] code = 2019-06) The system [facility] generated this result transmit gonsalo reference range : 35 - 45 mm Hg. The reference range was not used to interpret this result as normal/abnormal . pO2, Arterial (test 229 See_Comment H [Automa gonsalo message] code = 2703-7) The system [facility] generated this result transmit gonsalo reference range : 80 - 90 mm Hg. The reference range was not used to interpret this result as normal/abnormal . O2 Sat, Arterial (test 99.5 % 96.0-97.0 H code = 2708-6) HCO3, Arterial (test 27 mmol/L 21-29 code = 1960-4) Base Excess, Arterial 1.4 mmol/L -2.0-3.0 (test code = 1925-7) Patient Temperature 36.0 (test code = 8310-5) FIO2 (test code = 1819) 50.0 Lab Interpretation Abnormal (test code = 62322-3) [facility] [id number] 19:18:37 Test Item Value Reference Range Interpretation Comments Hemoglobin (test code = 10.5 See_Comment L [Au tomated message] 718-7) The system [facility] generated this result transmitted ref erence range: 13.0 - 1 6.8 GM/DL. The refe rence range was not u sed to interpret this result as normal/abnor mal. Hematocrit (test code = 31.0 % 40.0-50.0 L 4544-3) Lab Interpretation (test Abnormal code = 75627-8) [facility], [id number] 19:18:37 Test Item Value Reference Range Interpretation Comments pH, Arterial (test code 7.40 7.35-7.45 = 2744-1) pCO2, Arterial (test 44 See_Comment [Autom ated message] code = 2019-06) The system [facility] generated this result transmit gonsalo reference range : 35 - 45 mm Hg. The reference range was not used to interpret this result as normal/abnormal . pO2, Arterial (test 229 See_Comment H [Automa gonsalo message] code = 2703-7) The system [facility] generated this result transmit gonsalo reference range : 80 - 90 mm Hg. The reference range was not used to interpret this result as normal/abnormal . O2 Sat, Arterial (test 99.5 % 96.0-97.0 H code = 2708-6) HCO3, Arterial (test 27 mmol/L 21-29 code = 1960-4) Base Excess, Arterial 1.4 mmol/L -2.0-3.0 (test code = 1925-7) Patient Temperature 36.0 (test code = 8310-5) FIO2 (test code = 1819) 50.0 Lab Interpretation Abnormal (test code = 24214-9) [facility]Stat [id number] 19:18:37 Test Item Value Reference Range Interpretation Comments Hemoglobin (test code = 10.5 See_Comment L [Au tomated message] 718-7) The system [facility] [employer] generated this result transmitted ref erence range: 13.0 - 1 6.8 GM/DL. The refe rence range was not u sed to interpret this result as normal/abnor mal. Hematocrit (test code = 31.0 % 40.0-50.0 L 4544-3) Lab Interpretation (test Abnormal code = 75877-9) [facility], [id number] 19:18:37 Test Item Value Reference Range Interpretation Comments pH, Arterial (test code 7.40 7.35-7.45 = 2744-1) pCO2, Arterial (test 44 See_Comment [Autom ated message] code = 2019-8) The system [facility] generated this result transmit gonsalo reference range : 35 - 45 mm Hg. The reference range was not used to interpret this result as normal/abnormal . pO2, Arterial (test 229 See_Comment H [Automa gonsalo message] code = 2703-7) The system [facility] generated this result transmit gonsalo reference range : 80 - 90 mm Hg. The reference range was not used to interpret this result as normal/abnormal . O2 Sat, Arterial (test 99.5 % 96.0-97.0 H code = 2708-6) HCO3, Arterial (test 27 mmol/L 21-29 code = 1960-4) Base Excess, Arterial 1.4 mmol/L -2.0-3.0 (test code = 1925-7) Patient Temperature 36.0 (test code = 8310-5) FIO2 (test code = 1819) 50.0 Lab Interpretation Abnormal (test code = 43340-3) [facility] [id number] 19:18:37 Test Item Value Reference Range Interpretation Comments Hemoglobin (test code = 10.5 See_Comment L [Au tomated message] 718-7) The system [employer] generated this result transmitted ref erence range: 13.0 - 1 6.8 GM/DL. The refe rence range was not u sed to interpret this result as normal/abnor mal. Hematocrit (test code = 31.0 % 40.0-50.0 L 4544-3) Lab Interpretation (test Abnormal code = 56443-6) [facility] G[facility], [id number] 19:18:37 Test Item Value Reference Range Interpretation Comments PH ARTERIAL (BEAKER) (test code = 7.40 7.35-7.45 383) PCO2 ARTERIAL (BEAKER) (test code 44 mm Hg 35-45 = 384) PO2 ARTERIAL (BEAKER) (test code = 229 mm Hg 80-90 H 385) O2 SATURATION ARTERIAL (BEAKER) 99.5 % 96.0-97.0 H (test code = 386) HCO3 ARTERIAL (BEAKER) (test code 27 mmol/L 21-29 = 388) BASE EXCESS ARTERIAL (BEAKER) 1.4 mmol/L -2.0-3.0 (test code = 387) PATIENT TEMPERATURE (BEAKER) (test 36.0 code = 1818) FIO2 (BEAKER) (test code = 1819) 50.0 HGB/HCT (H&H) - STAT [id number] 19:18:37 Test Item Value Reference Range Interpretation Comments HEMOGLOBIN (BEAKER) (test code = 10.5 GM/DL 13.0-16.8 L 410) HEMATOCRIT (BEAKER) (test code = 31.0 % 40.0-50.0 L 411) Potassium-Stat [id number] 19:18:06 Test Item Value Reference Range Interpretation Comments Potassium (test code = 2823-3) 3.6 meq/L 3.6-5.5 Lab Interpretation (test code = Normal 47784-4) [facility] [id number] 19:18:06 Test Item Value Reference Range Interpretation Comments Potassium (test code = 2823-3) 3.6 meq/L 3.6-5.5 Lab Interpretation (test code = Normal 80680-4) [facility] [id number] 19:18:06 Test Item Value Reference Range Interpretation Comments Potassium (test code = 2823-3) 3.6 meq/L 3.6-5.5 Lab Interpretation (test code = Normal 43467-5) [facility]OTASSIUM-STAT [id number] 19:18:06 Test Item Value Reference Range Interpretation Comments POTASSIUM (BEAKER) (test code = 3.6 meq/L 3.6-5.5 379) Glucose-Stat [id number] 19:18:05 Test Item Value Reference Range Interpretation Comments Glucose (test code = 2345-7) 133 mg/dL 70-110 H Lab Interpretation (test code = Abnormal 32743-5) [facility] [id number] 19:18:05 Test Item Value Reference Range Interpretation Comments Sodium (test code = 2951-2) 138 meq/L 136-145 Lab Interpretation (test code = Normal 39381-1) [facility] [id number] 19:18:05 Test Item Value Reference Range Interpretation Comments Glucose (test code = 2345-7) 133 mg/dL 70-110 H Lab Interpretation (test code = Abnormal 79663-2) [facility] [id number] 19:18:05 Test Item Value Reference Range Interpretation Comments Sodium (test code = 2951-2) 138 meq/L 136-145 Lab Interpretation (test code = Normal 18501-6) [facility]Stat [id number] 19:18:05 Test Item Value Reference Range Interpretation Comments Glucose (test code = 2345-7) 133 mg/dL 70-110 H Lab Interpretation (test code = Abnormal 49913-2) [facility] [id number] 19:18:05 Test Item Value Reference Range Interpretation Comments Sodium (test code = 2951-2) 138 meq/L 136-145 Lab Interpretation (test code = Normal 14367-5) [facility] [id number] 19:18:05 Test Item Value Reference Range Interpretation Comments GLUCOSE RANDOM (BEAKER) (test code 133 mg/dL 70-110 H = 652) SODIUM NA-STAT [id number] 19:18:05 Test Item Value Reference Range Interpretation Comments SODIUM (BEAKER) (test code = 381) 138 meq/L 136-145 CALCIUM, [id number] 18:22:48 Test Item Value Reference Range Interpretation Comments CALCIUM IONIZED (BEAKER) (test 0.97 mmol/L 1.12-1.27 L code = 698) PH, BLOOD (BEAKER) (test code = 7.28 1810) BLOOD GAS, [id number] 18:22:46 Test Item Value Reference Range Interpretation Comments PH ARTERIAL (BEAKER) (test code = 7.28 7.35-7.45 L 383) PCO2 ARTERIAL (BEAKER) (test code 51 mm Hg 35-45 H = 384) PO2 ARTERIAL (BEAKER) (test code 222 mm Hg 80-90 H = 385) O2 SATURATION ARTERIAL (BEAKER) 99.3 % 96.0-97.0 H (test code = 386) HCO3 ARTERIAL (BEAKER) (test code 23 mmol/L 21-29 = 388) BASE EXCESS ARTERIAL (BEAKER) -3.8 mmol/L -2.0-3.0 L (test code = 387) PATIENT TEMPERATURE (BEAKER) 37.0 (test code = 1818) FIO2 (BEAKER) (test code = 1819) 50.0 HGB/HCT (H&H) - STAT [id number] 18:22:46 Test Item Value Reference Range Interpretation Comments HEMOGLOBIN (BEAKER) (test code = 11.7 GM/DL 13.0-16.8 L 410) HEMATOCRIT (BEAKER) (test code = 34.0 % 40.0-50.0 L 411) POTASSIUM-STAT [id number] 18:22:33 Test Item Value Reference Range Interpretation Comments POTASSIUM (BEAKER) (test code = 3.8 meq/L 3.6-5.5 379) GLUCOSE-STAT [id number] 18:22:32 Test Item Value Reference Range Interpretation Comments GLUCOSE RANDOM (BEAKER) (test code 126 mg/dL 70-110 H = 652) SODIUM NA-STAT [id number] 18:22:32 Test Item Value Reference Range Interpretation Comments SODIUM (BEAKER) (test code = 381) 135 meq/L 136-145 L BLOOD GAS, [id number] 17:09:48 Test Item Value Reference Range Interpretation Comments PH ARTERIAL (BEAKER) (test code = 7.36 7.35-7.45 383) PCO2 ARTERIAL (BEAKER) (test code 45 mm Hg 35-45 = 384) PO2 ARTERIAL (BEAKER) (test code 404 mm Hg 80-90 H = 385) O2 SATURATION ARTERIAL (BEAKER) 99.8 % 96.0-97.0 H (test code = 386) HCO3 ARTERIAL (BEAKER) (test code 25 mmol/L 21-29 = 388) BASE EXCESS ARTERIAL (BEAKER) -0.9 mmol/L -2.0-3.0 (test code = 387) PATIENT TEMPERATURE (BEAKER) 37.0 (test code = 1818) FIO2 (BEAKER) (test code = 1819) 75.0 CALCIUM, [id number] 17:09:20 Test Item Value Reference Range Interpretation Comments CALCIUM IONIZED (BEAKER) (test 1.13 mmol/L 1.12-1.27 code = 698) PH, BLOOD (BEAKER) (test code = 7.36 1810) HGB/HCT (H&H) - STAT [id number] 17:09:03 Test Item Value Reference Range Interpretation Comments HEMOGLOBIN (BEAKER) (test code = 14.7 GM/DL 13.0-16.8 410) HEMATOCRIT (BEAKER) (test code = 43.0 % 40.0-50.0 411) GLUCOSE-STAT [id number] 17:09:02 Test Item Value Reference Range Interpretation Comments GLUCOSE RANDOM (BEAKER) (test code 108 mg/dL 70-110 = 652) SODIUM NA-STAT [id number] 17:09:01 Test Item Value Reference Range Interpretation Comments SODIUM (BEAKER) (test code = 381) 137 meq/L 136-145 POTASSIUM-STAT [id number] 17:09:01 Test Item Value Reference Range Interpretation Comments POTASSIUM (BEAKER) (test code = 3.8 meq/L 3.6-5.5 379) BASIC METABOLIC [id number] 05:29:58 Test Item Value Reference Range Interpretation Comments SODIUM (BEAKER) 140 meq/L 136-145 (test code = 381) POTASSIUM 4.2 meq/L 3.5-5.1 (BEAKER) (test code = 379) CHLORIDE (BEAKER) 106 meq/L 98-107 (test code = 382) CO2 (BEAKER) 25 meq/L 22-29 (test code = 355) BLOOD UREA 20 mg/dL 7-21 NITROGEN (BEAKER) (test code = 354) CREATININE 0.71 mg/dL 0.57-1.25 (BEAKER) (test code = 358) GLUCOSE RANDOM 121 mg/dL 70-105 H (BEAKER) (test code = 652) CALCIUM (BEAKER) 9.1 mg/dL 8.4-10.2 (test code = 697) EGFR (BEAKER) 95 Interpretatio n of eGFR (test code = mL/min/1.73 values Stage De scription 1092) sq m Result G1 Haleigh l or high >=90 G2 Mildly decreased 60-89 G3a Mildl y to moderately 45-5 9 G3b Moderately to s everely 30-44 G4 Severl y decreased 15-29 G5 Kidney failure <15Reported eGF R is based on the CKD-EPI 2020 equation that d oes not use a race coefficientEsti mated GFR is not as accur ate as Creatinine Cristina jeanine in predicting glom erular filtration rate . Estimated GFR is not appl icable for dialysis patien ts [employer] Refrigeration Technician ID - MARY [id number] 05:21:53 Test Item Value Reference Range Interpretation Comments PROTIME (BEAKER) 14.0 seconds 11.9-14.2 (test code = 759) INR (BEAKER) (test 1.10 See_Comment [Automat ed message] code = 370) The system [employer] generated this result transmitted ref erence range: <=5.90. The reference range was not used to int erpret this result as normal/abnormal . RECOMMENDED COUMADIN/WARFARIN INR THERAPY RANGESSTANDARD DOSE: 2.0 - 3.0 Includes: PROPHYLAXIS for venous thrombosis, systemic embolization; TREATMENT for venous thrombosis and/or pulmonary embolus.HIGH RISK: Target INR is 2.5-3.5 for patients with mechanical heart valves.CBC (HEMOGRAM ONLY)2023-07-16 05:03:01 Test Item Value Reference Range Interpretation Comments WHITE BLOOD CELL COUNT (BEAKER) 13.4 K/ L 3.5-10.5 H (test code = 775) RED BLOOD CELL COUNT (BEAKER) 4.94 M/ L 4.63-6.08 (test code = 761) HEMOGLOBIN (BEAKER) (test code = 15.2 GM/DL 13.7-17.5 410) HEMATOCRIT (BEAKER) (test code = 45.3 % 40.1-51.0 411) MEAN CORPUSCULAR VOLUME (BEAKER) 92 fL 79-92 (test code = 753) MEAN CORPUSCULAR HEMOGLOBIN 30.8 pg 25.7-32.2 (BEAKER) (test code = 751) MEAN CORPUSCULAR HEMOGLOBIN CONC 33.6 GM/DL 32.3-36.5 (BEAKER) (test code = 752) RED CELL DISTRIBUTION WIDTH 13.2 % 11.6-14.4 (BEAKER) (test code = 412) PLATELET COUNT (BEAKER) (test 226 K/CU MM 150-450 code = 756) MEAN PLATELET VOLUME (BEAKER) 10.9 fL 9.4-12.4 (test code = 754) NUCLEATED RED BLOOD CELLS 0 /100 WBC 0-0 (BEAKER) (test code = 413) BLOOD [id number] 10:00:34 Test Item Value Reference Range Interpretation Comments CULTURE (BEAKER) (test No growth in 5 days code = 1095) BLOOD [id number] 07:00:11 Test Item Value Reference Range Interpretation Comments CULTURE (BEAKER) (test No growth in 5 days code = 1095) BASIC METABOLIC [id number] 07:27:27 Test Item Value Reference Range Interpretation Comments SODIUM (BEAKER) 143 meq/L 136-145 (test code = 381) POTASSIUM 3.1 meq/L 3.5-5.1 L (BEAKER) (test code = 379) CHLORIDE (BEAKER) 107 meq/L 98-107 (test code = 382) CO2 (BEAKER) 27 meq/L 22-29 (test code = 355) BLOOD UREA 18 mg/dL 7-21 NITROGEN (BEAKER) (test code = 354) CREATININE 0.60 mg/dL 0.57-1.25 (BEAKER) (test code = 358) GLUCOSE RANDOM 96 mg/dL 70-105 (BEAKER) (test code = 652) CALCIUM (BEAKER) 8.7 mg/dL 8.4-10.2 (test code = 697) EGFR (BEAKER) 99 Interpretatio n of eGFR (test code = mL/min/1.73 values Stage De scription 1092) sq m Result G1 Haleigh l or high >=90 G2 Mildly decreased 60-89 G3a Mildl y to moderately 45-5 9 G3b Moderately to s everely 30-44 G4 Severl y decreased 15-29 G5 Kidney failure <15Reported eGF R is based on the CKD-EPI 2020 equation that d oes not use a race coefficientEsti mated GFR is not as accur ate as Creatinine Cristina jeanine in predicting glom erular filtration rate . Estimated GFR is not appl icable for dialysis patien ts Hvac Refrigeration Technician ID - [facility] (HEMOGRAM ONLY)2023-07-13 06:54:37 Test Item Value Reference Range Interpretation Comments WHITE BLOOD CELL COUNT (BEAKER) 14.2 K/ L 3.5-10.5 H (test code = 775) RED BLOOD CELL COUNT (BEAKER) 4.72 M/ L 4.63-6.08 (test code = 761) HEMOGLOBIN (BEAKER) (test code = 14.5 GM/DL 13.7-17.5 410) HEMATOCRIT (BEAKER) (test code = 42.3 % 40.1-51.0 411) MEAN CORPUSCULAR VOLUME (BEAKER) 90 fL 79-92 (test code = 753) MEAN CORPUSCULAR HEMOGLOBIN 30.7 pg 25.7-32.2 (BEAKER) (test code = 751) MEAN CORPUSCULAR HEMOGLOBIN CONC 34.3 GM/DL 32.3-36.5 (BEAKER) (test code = 752) RED CELL DISTRIBUTION WIDTH 13.0 % 11.6-14.4 (BEAKER) (test code = 412) PLATELET COUNT (BEAKER) (test 210 K/CU MM 150-450 code = 756) MEAN PLATELET VOLUME (BEAKER) 10.9 fL 9.4-12.4 (test code = 754) NUCLEATED RED BLOOD CELLS 0 /100 WBC 0-0 (BEAKER) (test code = 413) [id number] 06:52:14 Test Item Value Reference Range Interpretation Comments PROSTATE SPECIFIC ANTIGEN (BEAKER) 0.9 ng/mL 0.0-4.0 (test code = 844) Hvac Refrigeration Technician ID - [facility] METABOLIC [id number] 06:26:08 Test Item Value Reference Range Interpretation Comments SODIUM (BEAKER) 142 meq/L 136-145 (test code = 381) POTASSIUM 3.1 meq/L 3.5-5.1 L (BEAKER) (test code = 379) CHLORIDE (BEAKER) 110 meq/L 98-107 H (test code = 382) CO2 (BEAKER) 26 meq/L 22-29 (test code = 355) BLOOD UREA 16 mg/dL 7-21 NITROGEN (BEAKER) (test code = 354) CREATININE 0.60 mg/dL 0.57-1.25 (BEAKER) (test code = 358) GLUCOSE RANDOM 96 mg/dL 70-105 (BEAKER) (test code = 652) CALCIUM (BEAKER) 9.0 mg/dL 8.4-10.2 (test code = 697) EGFR (BEAKER) 99 Interpretatio n of eGFR (test code = mL/min/1.73 values Stage De scription 1092) sq m Result G1 Haleigh l or high >=90 G2 Mildly decreased 60-89 G3a Mildl y to moderately 45-5 9 G3b Moderately to s everely 30-44 G4 Severl y decreased 15-29 G5 Kidney failure <15Reported eGF R is based on the CKD-EPI 2020 equation that d oes not use a race coefficientEsti mated GFR is not as accur ate as Creatinine Cristina solorzano in predicting glom erular filtration rate . Estimated GFR is not appl icable for dialysis patien ts Hvac Refrigeration Technician ID - [facility] (HEMOGRAM ONLY)2023-07-12 06:03:59 Test Item Value Reference Range Interpretation Comments WHITE BLOOD CELL COUNT (BEAKER) 22.9 K/ L 3.5-10.5 H (test code = 775) RED BLOOD CELL COUNT (BEAKER) 4.69 M/ L 4.63-6.08 (test code = 761) HEMOGLOBIN (BEAKER) (test code = 14.9 GM/DL 13.7-17.5 410) HEMATOCRIT (BEAKER) (test code = 41.9 % 40.1-51.0 411) MEAN CORPUSCULAR VOLUME (BEAKER) 89 fL 79-92 (test code = 753) MEAN CORPUSCULAR HEMOGLOBIN 31.8 pg 25.7-32.2 (BEAKER) (test code = 751) MEAN CORPUSCULAR HEMOGLOBIN CONC 35.6 GM/DL 32.3-36.5 (BEAKER) (test code = 752) RED CELL DISTRIBUTION WIDTH 13.1 % 11.6-14.4 (BEAKER) (test code = 412) PLATELET COUNT (BEAKER) (test 217 K/CU MM 150-450 code = 756) MEAN PLATELET VOLUME (BEAKER) 11.0 fL 9.4-12.4 (test code = 754) NUCLEATED RED BLOOD CELLS 0 /100 WBC 0-0 (BEAKER) (test code = 413) BASIC METABOLIC [id number] 06:17:28 Test Item Value Reference Range Interpretation Comments SODIUM (BEAKER) 141 meq/L 136-145 (test code = 381) POTASSIUM 3.6 meq/L 3.5-5.1 (BEAKER) (test code = 379) CHLORIDE (BEAKER) 109 meq/L 98-107 H (test code = 382) CO2 (BEAKER) 24 meq/L 22-29 (test code = 355) BLOOD UREA 17 mg/dL 7-21 NITROGEN (BEAKER) (test code = 354) CREATININE 0.68 mg/dL 0.57-1.25 (BEAKER) (test code = 358) GLUCOSE RANDOM 224 mg/dL 70-105 H (BEAKER) (test code = 652) CALCIUM (BEAKER) 9.0 mg/dL 8.4-10.2 (test code = 697) EGFR (BEAKER) 96 Interpretatio n of eGFR (test code = mL/min/1.73 values Stage De scription 1092) sq m Result G1 Haleigh l or high >=90 G2 Mildly decreased 60-89 G3a Mildl y to moderately 45-5 9 G3b Moderately to s everely 30-44 G4 Severl y decreased 15-29 G5 Kidney failure <15Reported eGF R is based on the CKD-EPI 2020 equation that d oes not use a race coefficientEsti mated GFR is not as accur ate as Creatinine Cristina solorzano in predicting glom erular filtration rate . Estimated GFR is not appl icable for dialysis patien ts Hvac Refrigeration Technician ID - [id number] 06:17:28 Test Item Value Reference Range Interpretation Comments MAGNESIUM (BEAKER) (test code = 2.0 mg/dL 1.6-2.6 627) Hvac Refrigeration Technician ID - [id number] 06:17:28 Test Item Value Reference Range Interpretation Comments PHOSPHORUS (BEAKER) (test code = 2.1 mg/dL 2.3-4.7 L 604) Hvac Refrigeration Technician ID - [facility] (HEMOGRAM ONLY)2023-07-11 05:59:41 Test Item Value Reference Range Interpretation Comments WHITE BLOOD CELL COUNT (BEAKER) 23.7 K/ L 3.5-10.5 H (test code = 775) RED BLOOD CELL COUNT (BEAKER) 5.11 M/ L 4.63-6.08 (test code = 761) HEMOGLOBIN (BEAKER) (test code = 15.8 GM/DL 13.7-17.5 410) HEMATOCRIT (BEAKER) (test code = 45.6 % 40.1-51.0 411) MEAN CORPUSCULAR VOLUME (BEAKER) 89 fL 79-92 (test code = 753) MEAN CORPUSCULAR HEMOGLOBIN 30.9 pg 25.7-32.2 (BEAKER) (test code = 751) MEAN CORPUSCULAR HEMOGLOBIN CONC 34.6 GM/DL 32.3-36.5 (BEAKER) (test code = 752) RED CELL DISTRIBUTION WIDTH 12.7 % 11.6-14.4 (BEAKER) (test code = 412) PLATELET COUNT (BEAKER) (test 216 K/CU MM 150-450 code = 756) MEAN PLATELET VOLUME (BEAKER) 10.8 fL 9.4-12.4 (test code = 754) NUCLEATED RED BLOOD CELLS 0 /100 WBC 0-0 (BEAKER) (test code = 413) CTA AAA AND [id number] 22:32:09 [facility] : 1945 Sex: MEXAM: CT A ngiography Abdomen and Pelvis With Runoff to the LowerExtremities With Intravenous ContrastCLINICAL INDICATION: Peripheral arterial disease (PAD), prior revasc,follow upTECHNIQUE: Axial computed tomographic angiography images of theabdomen, pelvis and lower extremities with intravenous contrast. ThisCT exam was performed using one or more of the following dose reductiontechniques: automated exposure control, adjustment of the mA and/or kVaccording to patient size, and/or use of iterative reconstructiontechnique. MIP reconstructed images were created and reviewed.COMPARISON: No relevant prior studies available.FINDINGS:VASCULATURE:Aorta: No acute findings. No abdominal aortic aneurysm. 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 There is moderate, 60% stenosis of the origin ofthe right superficial femoral artery. Severe, 90% stenosis of thedistal right superficial femoral artery. Moderate plaque with 30%stenosis of the rightpopliteal artery.Right calf/foot arteries: No acute findings. No occlusion orsignificant stenosis.Left iliac arteries: No acute findings. No occlusion or significantstenosis.Left femoral/popliteal arteries: Multifocal plaque with up to 60%stenosis of the distal left superficial femoral artery. Heavilycalcified plaque causing 60% stenosis of the left popliteal artery.Left calf/foot arteries: No acute findings. No occlusion orsignificant stenosis.Lung bases: Unremarkable. No mass. No consolidation.ABDOMEN:Liver: Unremarkable. No mass.Gallbladder and bile ducts: Unremarkable. No calcified stones. Noductal dilation.Pancreas: Unremarkable. No ductal dilation. No mass.Spleen: Unremarkable. No splenomegaly.Adrenals: Unremarkable. No mass.Kidneys and ureters: Unremarkable. No hydronephrosis. No solid mass.Stomach and bowel: There is diverticulosis of the left and sigmoidcolon without evidence of divertic ulitis. 6.4 cm of stool in the rectumcould indicate mild constipation. No obstruction.PELVIS:Appendix: No findings to suggest acute appendicitis.Bladder: Unremarkable. No mass.Reproductive: Unremarkable as visualized.ABDOMEN, PELVIS and LOWER EXTREMITIES:Intraperitoneal space: Unremarkable. No significant fluid collection. No free air.Bones/joints: Mild stenosis of the left tibial peroneal trunk. Noacute fracture. No dislocation.Soft tissues: Unremarkable.Lymph nodes: Unremarkable. No enlarged lymphnodes.Other findings: Surgical changes status post aortobifem bypass graft.The graft is widely patent.IMPRESSION:1. 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 Severe, 90% stenosis of the distal right superficial femoral artery.3. Diffuse atherosclerotic disease with other areas of onsi-yz-rwccaliivuhlmgbds described above.Electronically Signed By: Luis Manuel Hernandez07/10/2023 22:34 CDTWorkstation Name: [id number]/RT-PCR (Asymptomatic ONLY)2023-07-10 18:35:27 Test Item Value Reference Interpretation Comments Range SARS-COV2/RT-PCR Negative Negative The SARS-Co V-2 (test code = target nucleic 93306-9) acids are not detected in thi s specimen. Negat sari results do not preclude SARS-C oV-2 infection and should not be u sed as the sole bas is for patient management decisions. Nega tive results must be combined with clinical observations, patient history , and epidemiolog ical information. A false negative result may occu r if a specimen is improperly collected, transported or handled. This S ARS CoV-2 test is a rapid, real-gem e RT-PCR test intended for th e qualitative detection of nucleic acid fr om SARS-CoV-2 in a nasopharyngeal swab specimen [facility] from individual s suspected of COVID-19 by the ir healthcare provider. RAJESH (test code = This test has been RAJESH) authorized by FDA under an EUA for use by authorized laboratories. This test is only authorized for the duration of the declaration that circumstances exist justifying the authorization of emergency use of in vitro diagnostic tests for detection and/or diagnosis of COVID-19 under Section 564(b)(1) of the Federal Food, Drug and Cosmetic Act, 21 U.S.C. 360bbb-3(b)(1), unless the authorization is terminated or revoked sooner. Fact Sheet for Healthcare Providers: https://www.[employer]/Documents/Xp ert%20Xpress%20SAR S%20CoV-2/Fact%20S heets/302-3802%20S ARS-COV-2%20HEALTH CARE%20PROVIDERS%2 0FACT%20SHEET.pdf Fact Sheet for Healthcare Patients: https://www.[employer]/Documents/Xp ert%20Xpress%20SAR S%20CoV-2/Fact%20S heets/302-3801%20S ARS-COV-2%20PATIEN T%20FACT%20SHEET.p df Lab Interpretation Normal (test code = 38424-8) [facility]23-[facility]-10 18:35:27 Test Item Value Reference Interpretation Comments Range SARS-COV2/RT-PCR Negative Negative The SARS-Co V-2 (test code = target nucleic 82836-0) acids are not detected in thi s specimen. Negat sari results do not preclude SARS-C oV-2 infection and should not be u sed as the sole bas is for patient management decisions. Nega tive results must be combined with clinical observations, patient history , and epidemiolog ical information. A false negative result may occu r if a specimen is improperly collected, transported or handled. This S ARS CoV-2 test is a rapid, real-gem e RT-PCR test intended for th e qualitative detection of nucleic acid fr om SARS-CoV-2 in a nasopharyngeal swab specimen collec gonsalo from individual s suspected of COVID-19 by the ir healthcare provider. RAJESH (test code = This test has been RAJESH) authorized by FDA under an EUA for use by authorized laboratories. This test is only authorized for the duration of the declaration that circumstances exist justifying the authorization of emergency use of in vitro diagnostic tests for detection and/or diagnosis of COVID-19 under Section 564(b)(1) of the Federal Food, Drug and Cosmetic Act, 21 U.S.C. 360bbb-3(b)(1), unless the authorization is terminated or revoked sooner. Fact Sheet for Healthcare Providers: https://www.[employer]/Documents/Xp ert%20Xpress%20SAR S%20CoV-2/Fact%20S heets/302-3802%20S ARS-COV-2%20HEALTH CARE%20PROVIDERS%2 0FACT%20SHEET.pdf Fact Sheet for Healthcare Patients: https://www.[employer]/Documents/Xp ert%20Xpress%20SAR S%20CoV-2/Fact%20S heets/302-3801%20S ARS-COV-2%20PATIEN T%20FACT%20SHEET.p df Lab Interpretation Normal (test code = 06695-7) [facility]2023-07-10 18:35:27 Test Item Value Reference Interpretation Comments Range SARS-COV2/RT-PCR Negative Negative The SARS-Co V-2 (test code = target nucleic 19870-0) acids are not detected in thi s specimen. Negat sari results do not preclude SARS-C oV-2 infection and should not be u sed as the sole bas is for patient management decisions. Nega tive results must be combined with clinical observations, patient history , and epidemiolog ical information. A false negative result may occu r if a specimen is improperly collected, transported or handled. This S ARS CoV-2 test is a rapid, real-gem e RT-PCR test intended for th e qualitative detection of nucleic acid fr om SARS-CoV-2 in a nasopharyngeal swab specimen collec gonsalo from individual s suspected of COVID-19 by the ir healthcare provider. RAJESH (test code = This test has been RAJESH) authorized by FDA under an EUA for use by authorized laboratories. This test is only authorized for the duration of the declaration that circumstances exist justifying the authorization of emergency use of in vitro diagnostic tests for detection and/or diagnosis of COVID-19 under Section 564(b)(1) of the Federal Food, Drug and Cosmetic Act, 21 U.S.C. 360bbb-3(b)(1), unless the authorization is terminated or revoked sooner. Fact Sheet for Healthcare Providers: https://www.[employer]/Documents/Xp ert%20Xpress%20SAR S%20CoV-2/Fact%20S heets/302-3802%20S ARS-COV-2%20HEALTH CARE%20PROVIDERS%2 0FACT%20SHEET.pdf Fact Sheet for Healthcare Patients: https://www.[employer]/Documents/Xp ert%20Xpress%20SAR S%20CoV-2/Fact%20S heets/302-3801%20S ARS-COV-2%20PATIEN T%20FACT%20SHEET.p df Lab Interpretation Normal (test code = 66498-6) [facility]2023-07-10 18:35:27 Test Item Value Reference Interpretation Comments Range SARS-COV2/RT-PCR Negative Negative The SARS-Co V-2 (test code = target nucleic 44528-5) acids are not [facility]. Negat sari results do not preclude SARS-C oV-2 infection and should not be u sed as the sole bas is for patient management decisions. Nega tive results must be combined with clinical observations, patient history , and epidemiolog ical information. A false negative result may occu r if a specimen is improperly collected, transported or handled. This S ARS CoV-2 test is a rapid, real-gem e RT-PCR test intended for th e qualitative detection of nucleic acid fr om SARS-CoV-2 in a nasopharyngeal swab specimen collec gonsalo from individual s suspected of COVID-19 by the ir healthcare provider. RAJESH (test code = This test has been RAJESH) authorized by FDA under an EUA for use by authorized laboratories. This test is only authorized for the duration of the declaration that circumstances exist justifying the authorization of emergency use of in vitro diagnostic tests for detection and/or diagnosis of COVID-19 under Section 564(b)(1) of the Federal Food, Drug and Cosmetic Act, 21 U.S.C. 360bbb-3(b)(1), unless the authorization is terminated or revoked sooner. Fact Sheet for Healthcare Providers: https://www.[employer]/Documents/Xp ert%20Xpress%20SAR S%20CoV-2/Fact%20S heets/302-3802%20S ARS-COV-2%20HEALTH CARE%20PROVIDERS%2 0FACT%20SHEET.pdf Fact Sheet for Healthcare Patients: https://wwwVZnet [employer]ke/Documents/Xp ert%20Xpress%20SAR S%20CoV-2/Fact%20S heets/302-3801%20S ARS-COV-2%20PATIEN T%20FACT%20SHEET.p df Lab Interpretation Normal (test code = 78856-7) [facility]2023-07-10 18:35:27 Test Item Value Reference Range Interpretation Comments SARS-COV2/RT-PCR Negative Negative The SARS-Co V-2 target (test code = nucleic acids a re not 9624691) detected in thi s specimen. Negative result s do not preclude SARS-C oV-2 infection and s hould not be used as the sumanth e basis for patient managem ent decisions. Nega tive results must be combine d with clinical observ ations, patient history , and epidemiological information. A false negativ e result may occur if a spec imen is improperly donnell ected, transported or handled. This SARS CoV-2 test is a rapid, real-time RT-PC R test intended for th e qualitative detection of nu cleic acid from SARS-CoV-2 in a nasopharyngeal swab specimen collected from individuals suspected of CO VID-19 by their healthcar e provider. This test has been authorized by FDA under an EUA for use by authorized laboratories. This test is only authorized for the duration of the declaration that circumstances exist justifying the authorization of emergency use of in vitro diagnostic tests for detection and/or diagnosis of COVID-19 under Section 564(b)(1) of the Federal Food, Drug and Cosmetic Act, 21 U.S.C. 360bbb-3(b)(1), unless the authorization is terminated or revoked sooner. Fact Sheet for Healthcare Providers: https://www.[employer]/Documents/Xpert%20Xpress%20SARS%20CoV-2/Fact%20Sheets/3023802%30TEIV-WVQ-4%20 HEALTHCARE%20PROVIDERS%20FACT%20SHEET.pdf Fact Sheet for Healthcare Patients: https://www.[employer]/Documents/Xpert%20Xp ress%20SARS%20CoV-2/Fact%20Sheets/3023801%30SKCU-GJM-3%20PATIENT%20FACT%20SHEET .pdfHIGH SENSITIVITY TROPONIN [id number] 13:56:59 Test Item Value Reference Range Interpretation Comments HIGH SENSITIVITY 8 pg/ml See_Comment [Automated message] TROPONIN I (test code = The system which 9904602) generated this result transmitted ref erence range: <=35. Th e reference range was not used to interpr et this result as normal/abnormal . Hvac Refrigeration Technician ID - esauThe [employer]YROLL AND BENEFITS SPECIALIST STAT High Sensitivity Troponin-I results should be used in conjunction with other diagnostic information such as ECG, clinical observations and information, and patient symptoms to aid in the diagnosis of OR.BASIC METABOLIC [id number] 11:12:51 Test Item Value Reference Range Interpretation Comments SODIUM (BEAKER) 143 meq/L 136-145 (test code = 381) POTASSIUM 2.9 meq/L 3.5-5.1 L (BEAKER) (test code = 379) CHLORIDE (BEAKER) 103 meq/L 98-107 (test code = 382) CO2 (BEAKER) 28 meq/L 22-29 (test code = 355) BLOOD UREA 12 mg/dL 7-21 NITROGEN (BEAKER) (test code = 354) CREATININE 0.62 mg/dL 0.57-1.25 (BEAKER) (test code = 358) GLUCOSE RANDOM 81 mg/dL 70-105 (BEAKER) (test code = 652) CALCIUM (DERICKAKER) 9.3 mg/dL 8.4-10.2 (test code = 697) EGFR (DERICKAKER) 98 Interpretatio n of eGFR (test code = mL/min/1.73 values Stage De scription 1092) sq m Result G1 Haleigh l or high >=90 G2 Mildly decreased 60-89 G3a Mildl y to moderately 45-5 9 G3b Moderately to s everely 30-44 G4 Severl y decreased 15-29 G5 Kidney failure <15Reported eGF R is based on the CKD-EPI 2020 equation that d oes not use a race coefficientEsti mated GFR is not as accur ate as Creatinine Cristina solorzano in predicting glom erular filtration rate . Estimated GFR is not appl icable for dialysis patien ts Hvac Refrigeration Technician ID - esauOperator ID - esauUrinalysis w/Microscopic + Reflex to Culture 2023-07-10 09:23:59 Test Item Value Reference Range Interpretation Comments Color, UA (test code [place] = 5778-6) Clarity, UA (test Hazy code = 5767-9) Specific [place], UA 1.018 1.001-1.035 (test code = 5811-5) pH, UA (test code = 7.5 5.0-8.0 5803-2) Protein, UA (test 200 mg/dL Negative A code = 68795-6) Glucose, UA (test Negative Negative code = 365) Ketones, UA (test 100 mg/dL Negative A code = 2514-8) Bilirubin, UA (test Negative Negative code = 50179-3) Blood, UA (test code Large Negative A = 27807-1) Nitrite, UA (test Positive Negative A code = 5802-4) Leukocytes, UA (test Large Negative A code = 5799-2) Urobilinogen, UA 0.2 0.2-1.0 (test code = 13854-4) RBC, UA (test code = See_Comment [Autom ated 12655-9) message] The system which generated this result transmit gonsalo reference range : /HPF. The reference range was not used to interpret this result as normal/abnormal . WBC, UA (test code = 25 See_Comment [Autom ated 5821-4) message] The system which generated this result transmit gonsalo reference range : /HPF. The reference range was not used to interpret this result as normal/abnormal . Specimen Source (test code = 2795) RAJESH (test code = RAJESH) Hvac Refrigeration Technician ID - [auto]Hvac Refrigeration Technician ID - tech Lab Interpretation Abnormal (test code = 98687-8) [facility] Reflex to Culture 2023-07-10 09:23:59 Test Item Value Reference Range Interpretation Comments Color, UA (test code [place] = 5778-6) Clarity, UA (test Hazy code = 5767-9) Specific [place], UA 1.018 1.001-1.035 (test code = 5811-5) pH, UA (test code = 7.5 5.0-8.0 5803-2) Protein, UA (test 200 mg/dL Negative A code = 97090-0) Glucose, UA (test Negative Negative code = 365) Ketones, UA (test 100 mg/dL Negative A code = 2514-8) Bilirubin, UA (test Negative Negative code = 32221-8) Blood, UA (test code Large Negative A = 78591-0) Nitrite, UA (test Positive Negative A code = 5802-4) Leukocytes, UA (test Large Negative A code = 5799-2) Urobilinogen, UA 0.2 0.2-1.0 (test code = 64933-7) RBC, UA (test code = See_Comment [Autom ated 21188-8) message] The system which generated this result transmit gonsalo reference range : /HPF. The reference range was not used to interpret this result as normal/abnormal . WBC, UA (test code = 25 See_Comment [Autom ated 5821-4) message] The system which generated this result transmit gonsalo reference range : /HPF. The reference range was not used to interpret this result as normal/abnormal . Specimen Source (test code = 2795) RAJESH (test code = RAJESH) Hvac Refrigeration Technician ID - [auto]Hvac Refrigeration Technician ID - tech Lab Interpretation Abnormal (test code = 01729-8) [facility] Culture 2023-07-10 09:23:59 Test Item Value Reference Range Interpretation Comments Color, UA (test code [place] = 5778-6) Clarity, UA (test Hazy code = 5767-9) Specific [place], UA 1.018 1.001-1.035 (test code = 5811-5) pH, UA (test code = 7.5 5.0-8.0 5803-2) Protein, UA (test 200 mg/dL Negative A code = 67408-4) Glucose, UA (test Negative Negative code = 365) Ketones, UA (test 100 mg/dL Negative A code = 2514-8) Bilirubin, UA (test Negative Negative code = 79108-2) Blood, UA (test code Large Negative A = 45639-6) Nitrite, UA (test Positive Negative A code = 5802-4) Leukocytes, UA (test Large Negative A code = 5799-2) Urobilinogen, UA 0.2 0.2-1.0 (test code = 68652-8) RBC, UA (test code = See_Comment [Autom ated 20117-7) message] The system which generated this result transmit gonsalo reference range : /HPF. The reference range was not used to interpret this result as normal/abnormal . WBC, UA (test code = 25 See_Comment [Autom ated 5821-4) message] The system which generated this result transmit gonsalo reference range : /HPF. The reference range was not used to interpret this result as normal/abnormal . Specimen Source (test code = 2795) RAJESH (test code = RAJESH) Hvac Refrigeration Technician ID - [auto]Hvac Refrigeration Technician ID - tech Lab Interpretation Abnormal (test code = 03332-0) [facility] + Reflex to Culture 2023-07-10 09:23:59 Test Item Value Reference Range Interpretation Comments Color, UA (test code [place] = 5778-6) Clarity, UA (test Hazy code = 5767-9) Specific [place], UA 1.018 1.001-1.035 (test code = 5811-5) pH, UA (test code = 7.5 5.0-8.0 5803-2) Protein, UA (test 200 mg/dL Negative A code = 12556-5) Glucose, UA (test Negative Negative code = 365) Ketones, UA (test 100 mg/dL Negative A code = 2514-8) Bilirubin, UA (test Negative Negative code = 13369-8) Blood, UA (test code Large Negative A = 30758-2) Nitrite, UA (test Positive Negative A code = 5802-4) Leukocytes, UA (test Large Negative A code = 5799-2) Urobilinogen, UA 0.2 0.2-1.0 (test code = 17484-8) RBC, UA (test code = See_Comment [Autom ated 71263-1) message] The system which generated this result transmit gonsalo reference range : /HPF. The reference range was not used to interpret this result as normal/abnormal . WBC, UA (test code = 25 See_Comment [Autom ated 5821-4) message] The system which generated this result transmit gonsalo reference range : /HPF. The reference range was not used to interpret this result as normal/abnormal . Specimen Source (test code = 2795) RAJESH (test code = RAJESH) Hvac Refrigeration Technician ID - [auto]Hvac Refrigeration Technician ID - tech Lab Interpretation Abnormal (test code = 41632-9) [facility] UR[facility] [id number] 09:23:59 Test Item Value Reference Range Interpretation Comments COLOR (BEAKER) (test code = 470) [place] CLARITY (BEAKER) (test code = 469) Hazy SPECIFIC GRAVITY UA (BEAKER) (test 1.018 1.001-1.035 code = 468) PH UA (BEAKER) (test code = 467) 7.5 5.0-8.0 PROTEIN UA (BEAKER) (test code = 200 mg/dL Negative A 464) GLUCOSE UA (BEAKER) (test code = Negative Negative 365) KETONES UA (BEAKER) (test code = 100 mg/dL Negative A 371) BILIRUBIN UA (BEAKER) (test code = Negative Negative 462) BLOOD UA (BEAKER) (test code = 461) Large Negative A NITRITE UA (BEAKER) (test code = Positive Negative A 465) LEUKOCYTE ESTERASE UA (BEAKER) Large Negative A (test code = 466) UROBILINOGEN UA (BEAKER) (test code 0.2 0.2-1.0 = 463) RBC UA (BEAKER) (test code = 519) > /HPF WBC UA (BEAKER) (test code = 520) 25 /HPF SOURCE(BEAKER) (test code = 2795) Hvac Refrigeration Technician ID - [auto]Hvac Refrigeration Technician ID - [id number] 07:07:03 Test Item Value Reference Range Interpretation Comments MAGNESIUM (BEAKER) (test code = 2.0 mg/dL 1.6-2.6 627) Hvac Refrigeration Technician ID - [id number] 07:07:03 Test Item Value Reference Range Interpretation Comments PHOSPHORUS (BEAKER) (test code = 2.7 mg/dL 2.3-4.7 604) Hvac Refrigeration Technician ID - [id number] W/PLT COUNT & AUTO [id number] 06:12:49 Test Item Value Reference Range Interpretation Comments WHITE BLOOD CELL COUNT (BEAKER) 10.4 K/ L 3.5-10.5 (test code = 775) RED BLOOD CELL COUNT (BEAKER) 4.91 M/ L 4.63-6.08 (test code = 761) HEMOGLOBIN (BEAKER) (test code = 14.8 GM/DL 13.7-17.5 410) HEMATOCRIT (BEAKER) (test code = 45.2 % 40.1-51.0 411) MEAN CORPUSCULAR VOLUME (BEAKER) 92 fL 79-92 (test code = 753) MEAN CORPUSCULAR HEMOGLOBIN 30.1 pg 25.7-32.2 (BEAKER) (test code = 751) MEAN CORPUSCULAR HEMOGLOBIN CONC 32.7 GM/DL 32.3-36.5 (BEAKER) (test code = 752) RED CELL DISTRIBUTION WIDTH 12.8 % 11.6-14.4 (BEAKER) (test code = 412) PLATELET COUNT (BEAKER) (test 212 K/CU MM 150-450 code = 756) MEAN PLATELET VOLUME (BEAKER) 10.8 fL 9.4-12.4 (test code = 754) NUCLEATED RED BLOOD CELLS 0 /100 WBC 0-0 (BEAKER) (test code = 413) NEUTROPHILS RELATIVE PERCENT 59 % (BEAKER) (test code = 429) LYMPHOCYTES RELATIVE PERCENT 25 % (BEAKER) (test code = 430) MONOCYTES RELATIVE PERCENT 10 % (BEAKER) (test code = 431) EOSINOPHILS RELATIVE PERCENT 5 % (BEAKER) (test code = 432) BASOPHILS RELATIVE PERCENT 1 % (BEAKER) (test code = 437) NEUTROPHILS ABSOLUTE COUNT 6.19 K/ L 1.78-5.38 H (BEAKER) (test code = 670) LYMPHOCYTES ABSOLUTE COUNT 2.57 K/ L 1.32-3.57 (BEAKER) (test code = 414) MONOCYTES ABSOLUTE COUNT (BEAKER) 0.99 K/ L 0.30-0.82 H (test code = 415) EOSINOPHILS ABSOLUTE COUNT 0.50 K/ L 0.04-0.54 (BEAKER) (test code = 416) BASOPHILS ABSOLUTE COUNT (BEAKER) 0.12 K/ L 0.01-0.08 H (test code = 417) IMMATURE GRANULOCYTES-RELATIVE 0.40 % 0.00-1.00 PERCENT (BEAKER) (test code = 2801)
[2023-08-11 19:56] LABS: Absolute Lymphocytes (CBC) 1.3 K/uL (0.7-4.9); Hematocrit 28.5 % (39.6-49.0); Lymphocytes % 7.5 % (15.3-44.8); MCV 92.7 fL (80-100); MPV 8.3 fL (7.6-11.3); Platelets 220 thou/uL (152-406); RBC Red Blood Cell Count 3.07 M/uL (4.33-5.43)
[2023-08-11 19:59] LABS: Protime INR 1.25
[2023-08-11 20:25] LABS: Bilirubin Total 0.3 mg/dL (0.2-1.0); Potassium 3.8 mEq/L (3.5-5.1); Protein, Total 6.3 g/dL (6.4-8.2)
[2023-08-11] MEDS ORDERED: NA CHLORIDE 0.9% 500 ML ONE (20:48)
[2023-08-11] MEDS ORDERED: PANTOPRAZOLE 40 MG INJ ONE (20:48)
[2023-08-11] MEDS ORDERED: CEFTRIAXONE 1000 MG/VIAL ONE (20:48)
[2023-08-11] MEDS ORDERED: ONDANSETRON 4 MG/2 ML VIAL ONE (20:48)
[2023-08-11] MEDS ORDERED: METOCLOPRAMIDE 10 MG/2mL INJ ONE (20:48)
[2023-08-11] MEDS ORDERED: NA CHLORIDE 0.9% 250 ML ONE (20:48)
[2023-08-11] MEDS ORDERED: OCTREOTIDE ACETATE 500 MCG/ML ONE (20:49)
[2023-08-11 20:53] LABS: SARS-CoV-2 Antigen Rapid Res Negative (Negative)
--- NOTE | 2023-08-11 21:37 | EDPHYS ---
Physician Documentation [facility] Name: Miguel Baxter Age: 78 yrs Sex: Male : 1945 Arrival Date: 08/11/2023 Time: 18:55 Bed 20 Private MD: ED Physician Yvon Carreon HPI: 08/11 19:05 This 78 yrs old Male presents to ER via Unassigned with complaints of sp4 Vomiting. 19:30 Today at home patient was being showered by his son with assistance in the shower when sp4 patient manifested with bloody emesis which reportedly contained blood clots. Patient also had 1 episode of dark nonbloody stool. Patient felt weak and unwell and he was brought here for evaluation. At this time patient has no active vomiting. . Patient is 78-year-old male who is generally goes to [facility] . 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 Aortofemoral bypass repair with at [facility] 07/24/2023. After right femoral pseudoaneurysm repair patient had significant decline in functional capacity declining mobility and decline in his ability to do daily activities, and he also manifested with persistent urinary retention requiring indwelling Dodson catheter. Patient was admitted here on 07/23/[address] Gamino. Patient was subsequently discharged from rehab on 08/02/2023 . . 19:43 Patient's medications based on the record include aspirin 81 mg daily and Plavix 75 mg sp4 daily. . Historical: - Allergies: 19:07 Iodine; me1 19:07 PENICILLINS; me1 - PMHx: 19:07 CHF; CVA; Diabetes; High Cholesterol; Hypertension; tumor; me1 - PSHx: 19:07 Stented artery; me1 - Immunization history:: Adult Immunizations unknown. - Social history:: Smoking status: Patient reports the use of cigarette tobacco products, smokes one pack cigarettes per day. - Family history:: not pertinent. ROS: 19:44 Constitutional: Negative for fever, chills, and weight loss, positive for generalized sp4 weakness and pallor Eyes: Negative for injury, pain, redness, and discharge, ENT: Negative for injury, pain, and discharge, Neck: Negative for injury, pain, and swelling, Cardiovascular: Negative for chest pain, palpitations, and edema, Abdomen/GI: Positive for dark stool, 1 episode of bloody emesis, also positive for nausea, negative for abdominal pain or constipation 19:44 All other systems are negative. Exam: 19:44 Constitutional: This is a well developed, well nourished patient who is awake, alert, sp4 patient is pale, ill-appearing, hemodynamically stable, appears chronically ill but nontoxic at this time. Patient has indwelling Dodson catheter, no tachycardia Head/Face: Normocephalic, atraumatic. Eyes: Pupils equal round and reactive to light, extra-ocular motions intact. Lids and lashes normal. Conjunctiva and sclera are not injected. Cornea within normal limits. Periorbital areas with no swelling, redness, or edema. ENT: Nares patent. No nasal discharge, no septal abnormalities noted. Tympanic membranes are normal and external auditory canals are clear. Oropharynx with no redness, swelling, or masses, exudates, or evidence of obstruction, uvula midline. Mucous membranes moist. Neck: Trachea midline, no thyromegaly or masses palpated, and no cervical lymphadenopathy. Supple, full range of motion without nuchal rigidity, or vertebral point tenderness. Chest/axilla: Normal chest wall appearance and motion. Nontender with no deformity. No lesions are appreciated. Cardiovascular: Regular rate and rhythm with a normal S1 and S2. No gallops, murmurs, or rubs. Normal PMI, no JVD. No pulse deficits. Respiratory: Lungs have equal breath sounds bilaterally, clear to auscultation and percussion. No rales, rhonchi or wheezes noted. No increased work of breathing, no retractions or nasal flaring. Abdomen/GI: Soft, non-tender, with normal bowel sounds. No distension or tympany. No guarding or rebound. No evidence of tenderness throughout. Back: No spinal tenderness. No costovertebral tenderness. Male : Normal genitalia with no discharge or lesions. Positive indwelling Dodson catheter Skin: Warm, dry with normal turgor. Normal color with no rashes, no lesions, and no evidence of cellulitis. MS/ Extremity: Pulses equal, no cyanosis. Neurovascular intact. Full, normal range of motion. Neuro: Awake and alert, GCS 15, oriented to person, place, time, and situation. Cranial nerves II-XII grossly intact. Motor strength 5/5 in all extremities. Sensory grossly intact. Psych: Awake, alert, with orientation to person, place and time. Appears chronically ill 20:04 ECG was reviewed by the Attending Physician. Time 19:59 there is ventricular rate at sp4 72 bpm, first-degree AV block, sinus rhythm of 72, left anterior fascicular block, no ST elevation or depression, no active ectopy Vital Signs: 19:05 BP 140 / 97; Pulse 75; Resp 19; Temp 97.7(O); Pulse Ox 95% on R/A; Weight 49.9 kg; me1 Height 5 ft. 9 in. ; 20:00 BP 166 / 88; Pulse 72; Resp 22; Pulse Ox 100% on 3 lpm NC; me1 21:00 BP 134 / 81; Pulse 82; Resp 19; Pulse Ox 100% on 3 lpm NC; me1 22:00 BP 120 / 81; Pulse 83; Resp 21; Pulse Ox 100% on 3 lpm NC; me1 19:05 Body Mass Index 16.24 (49.90 kg, 175.26 cm) me1 MDM: 19:47 Patient medically screened. sp4 21:32 Differential diagnosis: Nonspecific abd pain, gastritis, cholecystitis, pancreatitis, sp4 appendicitis, diverticulitis, viral gastroenteritis, gastroenteritis. Data reviewed: vital signs, nurses notes, old medical records, lab test result(s), cardiac enzymes, CBC, electrolytes, hepatic panel, urinalysis, EKG. Consideration of Admission/Observation Patient was admitted/placed on observation. Escalation of care including admission/observation considered. Management of patient was discussed with the following: Hospitalist: [facility] Hospitalist. ED course: Patient at this time requires transfer for GI consult and upper endoscopy. There is no lineman a class available here. [facility] goes to [facility] for [facility] basic medical needs however [facility] is not picking up the phone, [facility] transfer center is not answering phone calls. Patient at this time was discussed with [facility] hospitalist who accepted patient for transfer for GI consult. Patient is hemodynamically stable at this. . 08/12 02:17 ED course: Catheterized urine revealed Dodson catheter associated UTI. sp4 08/11 19:15 Order name: CBC with Diff; Complete Time: 20:09 sp4 08/11 19:15 Order name: CMP; Complete Time: 20:42 sp4 08/11 19:15 Order name: Lipase; Complete Time: 20:42 sp4 08/11 19:22 Order name: Type And Screen; Complete Time: 20:42 sp4 08/11 19:23 Order name: PT-INR; Complete Time: 20:09 sp4 08/11 19:37 Order name: CRP; Complete Time: 20:42 sp4 08/11 19:38 Order name: Urinalysis W/Microscopic; Complete Time: 02:17 sp4 08/11 19:47 Order name: Troponin High Sensitivity; Complete Time: 20:20 sp4 08/11 19:47 Order name: SARS RAPID; Complete Time: 21:18 sp4 08/11 22:14 Order name: Urine Culture [facility] 08/11 19:47 Order name: EKG; Complete Time: 19:48 sp4 08/11 19:15 Order name: IV Saline Lock; Complete Time: 20:27 sp4 08/11 19:15 Order name: Labs collected and sent; Complete Time: 20:27 sp4 08/11 19:23 Order name: Dodson; Complete Time: 20:25 sp4 08/11 19:23 Order name: Saline Lock; Complete Time: 20:28 sp4 08/11 19:47 Order name: EKG - Nurse/Tech; Complete Time: 20:03 sp4 08/11 20:10 Order name: NPO; Complete Time: 20:27 sp4 EC/17 20:04 Rate is 72 beats/min. Rhythm is regular, Sinus Rhythm. QRS [place] is Normal. NM interval sp4 is prolonged. QRS interval is normal. No ST changes noted. Clinical impression: No evidence of ischemia. Interpreted by me. Reviewed by me. Administered Medications: 20:53 Drug: Ondansetron IVP 4 mg Route: IVP; Site: right forearm; me1 23:15 Follow up: Response: No adverse reaction me1 20:54 Drug: Pantoprazole IVP 80 mg Route: IVP; Site: right forearm; me1 23:15 Follow up: Response: No adverse reaction me1 20:54 Drug: Pantoprazole IV 8 mg/hr Route: IV; Rate: 25 ml/hr; Site: right forearm; me1 23:15 Follow up: Response: No adverse reaction me1 23:34 Follow up: IV Status: Infusion continued upon transfer me1 20:54 Drug: metoCLOPramide IVP 10 mg Route: IVP; Site: right forearm; me1 23:15 Follow up: Response: No adverse reaction me1 22:06 Drug: Rocephin - Rocephin (cefTRIAXone) IVPB 1 grams Route: IVPB; Infused Over: 30 me1 mins; Site: right antecubital; 22:28 Follow up: IV Status: Completed infusion me1 22:06 Drug: Octreotide Infusion (50 mcg/hr) - (Octreotide IV 500 mcg, NS 0.9% IV 500 ml) me1 Route: IV; Rate: 50 ml/hr; Site: right antecubital; 23:16 Follow up: Response: No adverse reaction me1 23:34 Follow up: IV Status: Infusion continued upon transfer me1 Disposition Summary: 08/11/23 21:36 Transfer Ordered Transfer Location: [facility] sp4 Reason: Higher level of care sp4 Condition: Stable sp4 Problem: new sp4 Symptoms: have improved sp4 Accepting Physician: [facility] Hospitalist (08/11/23 23:19) me1 Diagnosis - GI Bleed/ Gastrointestinal hemorrhage, unspecified sp4 - Acute upper GI bleed, hematemesis, physical debility, acute blood loss anemia, sp4 leukocytosis with left shift, Forms: - Medication Reconciliation Form sp4 - SBAR form sp4 Signatures: Dispatcher [employer] EDParish Pitts, MEDICAL UNDERWRITER-C MEDICAL UNDERWRITER-Cla1 Yvon Carreon MD MD sp4 Aminta Silverio RN RN me1 Corrections: (The following items were deleted from the chart) 19:44 19:30 Patient is 78-year-old male who is generally goes to [facility] . 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 Aortofemoral bypass repair with at [facility] 07/09/2023. After right femoral pseudoaneurysm repair patient had significant decline in functional capacity declining mobility and decline in his ability to do daily activities, and he also manifested with persistent urinary retention requiring indwelling Dodson catheter. Patient was admitted here on 07/23/[address] Gamino. Patient was subsequently discharged from rehab on 08/02/2023 . . sp4 22:04 19:15 Urinalysis+U.LAB.BRZ ordered. EDMS EDMS 23:19 21:36 [facility] Hospitalist sp4 me1
--- NOTE | 2023-08-11 21:37 | ER ---
Nurse's Notes [facility] Name: Miguel Baxter Age: 78 yrs Sex: Male : 1945 Arrival Date: 08/11/2023 Time: 18:55 Bed 20 Private MD: Diagnosis: GI Bleed/ Gastrointestinal hemorrhage, unspecified;Acute upper GI bleed, hematemesis, physical debility, acute blood loss anemia, leukocytosis with left shift, Presentation: 08/11 19:05 Chief complaint: Patient states: vomiting blood since this afternoon. Reports some me1 black stools in the recent past. Coronavirus screen: Vaccine status: Patient reports being unvaccinated. Ebola Screen: No symptoms or risks identified at this time. Initial Sepsis Screen: Does the patient meet any 2 criteria? No. Patient's initial sepsis screen is negative. Does the patient have a suspected source of infection? No. Patient's initial sepsis screen is negative. Risk Assessment: Do you want to hurt yourself or someone else? Patient reports no desire to harm self or others. Onset of symptoms was August 11, 2023. 19:05 Method Of Arrival: Wheelchair me1 19:05 Acuity: JANAY 3 me1 Triage Assessment: 19:07 General: Appears comfortable, slender, well groomed, Behavior is calm, cooperative, me1 appropriate for age. Pain: Denies pain. Neuro: Level of Consciousness is awake, alert, obeys commands, Oriented to person, place, time, situation, Appropriate for age. Cardiovascular: Capillary refill < 3 seconds Patient's skin is warm and dry. pale. Respiratory: Airway is patent Respiratory effort is even, unlabored, Respiratory pattern is regular, symmetrical. GI: Reports vomiting, bloody emesis that started this morning. Historical: - Allergies: 19:07 Iodine; me1 19:07 PENICILLINS; me1 - PMHx: 19:07 CHF; CVA; Diabetes; High Cholesterol; Hypertension; tumor; me1 - PSHx: 19:07 Stented artery; me1 - Immunization history:: Adult Immunizations unknown. - Social history:: Smoking status: Patient reports the use of cigarette tobacco products, smokes one pack cigarettes per day. - Family history:: not pertinent. Screenin:10 [facility] ED Fall Risk Assessment (Adult) History of falling in the last 3 months, me1 including since admission No falls in past 3 months (0 pts) Confusion or Disorientation No (0 pts) Intoxicated or Sedated No (0 pts) Impaired Gait Yes (1 pt) Mobility Assist Device Used Yes (1 pt) Altered Elimination No (0 pt) Score/Fall Risk Level 3 or more points = High Risk Oriented to surroundings, Maintained a safe environment, Educated pt \T\ family on fall prevention, incl call for assistance when getting out of bed, Provided non-skid footwear, Hourly rounding (assess needs \T\ fall precautionary measures) done, Used ambulatory aids as needed (educated on \T\ assisted with). Abuse screen: Denies threats or abuse. Nutritional screening: No deficits noted. Tuberculosis screening: No symptoms or risk factors identified. Assessment: 19:10 General: See triage assessment. . GI: Reports vomiting, bloody emesis that started this me1 afternoon. Vital Signs: 19:05 BP 140 / 97; Pulse 75; Resp 19; Temp 97.7(O); Pulse Ox 95% on R/A; Weight 49.9 kg; me1 Height 5 ft. 9 in. ; 20:00 BP 166 / 88; Pulse 72; Resp 22; Pulse Ox 100% on 3 lpm NC; me1 21:00 BP 134 / 81; Pulse 82; Resp 19; Pulse Ox 100% on 3 lpm NC; me1 22:00 BP 120 / 81; Pulse 83; Resp 21; Pulse Ox 100% on 3 lpm NC; me1 19:05 Body Mass Index 16.24 (49.90 kg, 175.26 cm) ar1 ED Course: 18:56 Patient arrived in ED. im 19:05 Yvon Carreon MD is Attending Physician. sp4 19:05 Aminta Silverio, KARLOS is Primary Nurse. me1 19:07 Triage completed. me1 19:07 Arm band placed on Patient placed in waiting room. me1 19:10 Patient has correct armband on for positive identification. Placed in gown. Bed in low me1 position. Call light in reach. Side rails up X2. Provided Education on: POC. Verbalized understanding.. 19:10 No provider procedures requiring assistance completed. me1 20:25 Ramirez cath removed intact, balloon deflated, 16F ramirez , patient came with upon cg3 arrival, removed in ER. 20:26 Ramirez cath inserted, using sterile technique, 16 Fr., by me, balloon inflated, to cg3 gravity drainage. 20:27 CRP Sent. me1 20:27 Lipase Sent. me1 20:34 SARS RAPID Sent. me1 20:[address] [facility] for GI. Spoke to Emilia. mb4 21:24 Dr. Obi de leon for doc-to-doc. mb4 21:52 Face sheet and Covid-19 test results faxed to . mb4 21:52 Patient accepted at [facility] under Dr. Aamir Malhotra at 2130. 4 Administrative approval by Kate Godinez at 2141. 22:06 Urinalysis W/Microscopic Sent. me1 22:06 Inserted saline lock: 22 gauge in right antecubital area, using aseptic technique. me1 22:16 Contacted [facility] preparation department supervisor. Spoke to Vaishali who advised her crew would transfer this 4 patient once they transferred care of their current 911 patient. 23:16 Patient transferred, IV remains in place. me1 Administered Medications: 20:53 Drug: Ondansetron IVP 4 mg Route: IVP; Site: right forearm; me1 23:15 Follow up: Response: No adverse reaction me1 20:54 Drug: Pantoprazole IVP 80 mg Route: IVP; Site: right forearm; me1 23:15 Follow up: Response: No adverse reaction me1 20:54 Drug: Pantoprazole IV 8 mg/hr Route: IV; Rate: 25 ml/hr; Site: right forearm; me1 23:15 Follow up: Response: No adverse reaction me1 23:34 Follow up: IV Status: Infusion continued upon transfer me1 20:54 Drug: metoCLOPramide IVP 10 mg Route: IVP; Site: right forearm; me1 23:15 Follow up: Response: No adverse reaction me1 22:06 Drug: Rocephin - Rocephin (cefTRIAXone) IVPB 1 grams Route: IVPB; Infused Over: 30 me1 mins; Site: right antecubital; 22:28 Follow up: IV Status: Completed infusion me1 22:06 Drug: Octreotide Infusion (50 mcg/hr) - (Octreotide IV 500 mcg, NS 0.9% IV 500 ml) me1 Route: IV; Rate: 50 ml/hr; Site: right antecubital; 23:16 Follow up: Response: No adverse reaction me1 23:34 Follow up: IV Status: Infusion continued upon transfer me1 Medication: 19:10 VIS not applicable for this client. me1 Outcome: 21:36 ER care complete, transfer ordered by . melba 23:18 Transferred by ground EMS to [facility]. me1 23:18 Condition: stable 23:18 Condition: stable 23:18 Instructed on the need for transfer. 23:19 Patient left the ED. me1 Signatures: Nitza Ludwig mb4 Yvon Carreon MD MD sp4 Deborah Olvera Michelle, RN RN me1 Hanane Espitia 3
[2023-08-11 22:10] LABS: Specific Gravity 1.022 (1.005-1.030); Urine Bacteria 20-50 /HPF (<20); Urine Bilirubin NEGATIVE (Negative); Urine Blood 3+ (Negative); Urine Clarity Extremely Turbid (Clear); Urine Color Yellow (Yellow); Urine Glucose NEGATIVE (Negative); Urine Mucus 3+ /HPF (None Seen); Urine Protein 2+ (Negative); Urine RBC >50 /HPF (None Seen); Urine Urobilinogen Normal (Normal); Urine WBC Clump Occasional /HPF (None Seen); Urine pH 5.5 (5.0-7.0)
[2023-08-12 01:10] VITALS: TEMP 97.7
[2023-08-12 01:12] VITALS: O2SAT 100
[2023-08-12 01:15] VITALS: BP 120/81
--- NOTE | 2023-08-12 19:05 | EKG ---
Test Date: 2023-08-11 Test Time: 19:59:53 Metal Numerical Control Programmer: VIRGIE MEASUREMENT RESULTS: Intervals: Rate: 72 NE: 226 QRSD: 86 QT: 422 QTc: 462 [place]: P: 84 NE: 226 QRS: -59 T: 80 INTERPRETIVE STATEMENTS: Sinus rhythm with 1st degree AV block Left anterior fascicular block Inferior infarct, age undetermined Anterior infarct, age undetermined Abnormal ECG Compared to ECG 09/16/2020 04:51:25 First degree AV block now present Left ventricular hypertrophy no longer present T-wave abnormality no longer present Possible ischemia no longer present Prolonged QT interval no longer present Myocardial infarct finding still present Electronically Signed On 08-12-23 19:03:29 CDT by Shawn Norton
== END 2023-08-11 23:19 | disposition short-term general hospital (02) ==
LOC: ER 18:55
DX: K92.0 Hematemesis (principal); D62 Acute posthemorrhagic anemia; D72.828 Other elevated white blood cell count; R54 Age-related physical debility; I10 Essential (primary) hypertension; I50.9 Heart failure, unspecified; F17.210 Nicotine dependence, cigarettes, uncomplicated; Z20.822 Contact with and (suspected) exposure to COVID-19; Z88.0 Allergy status to penicillin; Z91.048 Other nonmedicinal substance allergy status; Z79.01 Long term (current) use of anticoagulants; Z79.82 Long term (current) use of aspirin
CPT/HCPCS: 93005; 87088; 85025; 81001; 87086; 36415; 86900; 86850; 85610; 86901; 84484; 83690; 80053; 86140; 51702; 99285; 87811; J2765; J2354; C9113; J2405; J7050; J7040; J0696

== ENCOUNTER 2023-08-27 21:24 | Emergency (ER) | payer OTHER ==
--- OUTSIDE RECORDS SUMMARY | 2023-08-27 21:31 | XMS REPORT | Continuity of Care Document ---
:1945 Author Organization [facility] t Address [address] [place] [address] [address] [place] [address] Care Team Providers Name Role Phone No, Pcp [facility] Primary Care Physician Unavailable TYRON ALVARADO Attending Clinician Unavailable TAYLOR CISNEROS Attending Clinician Unavailable ABILIO HERNANDEZ Attending Clinician Unavailable LEE PETTIT Attending Clinician Unavailable BERNABE PETTIT Attending Clinician Unavailable JOSE JUAN MARTINEZ Attending Clinician Unavailable BEATRIZ ACOSTA Attending Clinician Unavailable JORDIN OSWALD Attending Clinician Unavailable NAHID SIERRA Attending Clinician Unavailable Leonel RIGGS, Heydi River Attending Clinician Tyron Alvarado MD Attending Clinician Jose Juan Martinez MD Attending Clinician Suzy RIGGS, Jossue Cruz Attending Clinician Abilio Hernandez MD Attending Clinician Parvez Pederson MD Attending Clinician Blayne Larose MD Attending Clinician Lee Pettit MD Attending Clinician TYRON ALVARADO Admitting Clinician Unavailable JOSE JUAN MARTINEZ Admitting Clinician Unavailable Payers Payer Name Policy Type Policy Number Effective Date Expiration Date S ource S [facility] NTWK [id number] 2023 00:00:00 MEDICARE A B [id number] 2011 00:00:00 Problems Condition Condition Condition Status Onset Resolution Last Treating Co mments Source Name Details Category Date Date Treatment Clinician Date Urinary Urinary Disease Active [facility]-29 [facility] 00[facility] Center Acute Acute Disease Active [facility] metabolic metabolic 8-29 [facility] encephalop encephalop 00:00: Az dical athy athy 00 Center Other Other Disease Active [facility] constipati constipati 8-29 Birdie kes on on 00:00: Medical 00 Center Acute Acute Disease Active [facility] post-opera post-opera 8-23 Birdie kes tive pain tive pain 00:00: Medi matt 00 Center Mixed Mixed Disease Active [facility] hyperlipid hyperlipid 8-23 Birdie kes emia emia 00:00: Medical 00 Center History of History of Disease Active [facility] rheumatic rheumatic 823 [facility] heart heart 00:00: Medical disease disease 00 Center History of History of Disease Active [facility] AAA AAA 8-23 [facility] (abdominal (abdominal 00:00: Az dical aortic aortic 00 Center aneurysm) aneurysm) repair repair Acute Acute Disease Active [facility] blood loss blood loss 8-23 Birdie kes anemia anemia 00:00: Medical 00 [place] 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, is, 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 [facility] unspecifie unspecifie 00:00: Az dical d type d type 00 Center Hyperglyce Hyperglyce Disease Active [facility] yajaira yajaira 8-23 [facility] 00:00: Medical 00 Center 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 00:00: Medica l 00 Center Essential Essential Disease Active [facility] hypertensi hypertensi 8-15 Birdie kes on on 00:00: Medical 00 Center Acute Acute Disease Recurre [facility] cerebrovas [...] disorder disorder 00:00: Medica l 00 Center Hypertensi Hypertensi Disease Active [facility] on with on with -15 [facility] goal to be goal to be 00:00: Me dical determined determined 00 Ce nter History of History of Disease Active C [...] ents Source Name Type Date Date Clinician IODINATE Allergy Active High [facility] D 8-16 [facility] CONTRAST 00:00: Medical MEDIA 00 Center Iodinate Drug Active [facility] d Allergy 8-16 [facility] Contrast 00:00: Medical Media 00 Center SHELLFIS Allergy Active High Anaphylaxis [facility] H 8-15 [facility] CONTAINI 00:00: Medical NG 00 Center PRODUCTS PENICILL Allergy Active Other [facility] IN 8-15 [facility] 00:00: Medical 00 Center Penicill Drug Active Other (See Stated [facility] in Allergy Comments) 8-15 childhood Naty es 00:00: allergy - Medical 00 tolerates Center cephalosp orins Shellfis Drug Active Anaphylaxis [facility] h Allergy 8-15 [facility] Containi 00:00: Medical ng 00 Center Products Family History Family Member Diagnosis Comments Start Date Stop Date Source Natural father Heart [facility] Natural mother [facility]roid [facility] Social History Social Habit Start Date Stop Date Quantity Comments Source History of tobacco Cigarette Smoker [facility] use [facility] History SDOH [facility]Med Medical [facility] Alcohol intake 2023-07-17 2023-07-17 Ex-drinker [facility] St Naty es 00:00:00 00:00:00 (finding) Medical Center History [facility] 2023-07-10 2023-07-[address] [facility] Transport Med 00:00:00 00:00:[address] [facility] 2023-07-10 2023-07-[address] [facility] Housing Unable to 00:00:00 00:00:00 Medical Center Pay History [facility] 2023-07-10 2023-07-[address] [facility] Housing Places 00:00:00 00:00:00 Medical Ce nter Lived History [facility] 2023-07-10 2023-07-[address] [facility] Housing Homeless 00:00:00 00:00:00 Medical Center Last Year Exposure to 2023-06-29 2023-07-[address] [facility] SARS-CoV-2 (event) 00:00:00 23:10:00 [facility] Cigarettes smoked 2023-07-09 2023-07-09 [facility] [address] jesus current (pack per 00:00:00 00:00:00 Medical Center day) - Reported Cigarette 2023-07-09 2023-07-09 [facility] pack-years 00:00:00 00:00:00 [facility] Center Sex Ass[birth year] At [birth year] [facility] [address] Birdie carsons 00:00:00 00:00:00 [facility] Center Smoking Status Start Date Stop Date Source Smokes tobacco daily 2023-07-09 00:00:00 [facility] Medications Ordered Filled Start Stop Current Ordering Indication Dosage Frequency Signature Comments Components Source Medication Medication Date Date Medication? Clinician (SIG) Name Name nicotine Yes 1{patch QD Place [address] [facility] (NICODERM 8-30 } patch onto Luke s CQ) 21 00:00: the skin Medical mg/24 hr 00 daily. Center patch pantoprazol Yes 40mg QD Take [address] [facility] [...] 10 total) by Center mouth daily. atorvastati 3-0 Yes 40mg QD Take [address] [facility] n (LIPITOR) 8-29 tablet (40 Birdie kes 40 MG 14:46: mg total) Medical tablet 10 by mouth Center daily. aspirin 81 3-0 Yes 81mg QD Take 1 CHI S [...] by mouth Cent er tablet nightly. NIFEdipine 3-0 2023- No 60mg QD Take [address] [facility] [address] (PROCARDIA- 8-29 08-29 tablet (60 L ukes XL) 60 MG 10:51: 00:00 mg total) Me dical (OSM) 24 hr 58 :00 by mouth Cent er tablet nightly. NIFEdipine 3-0 2023- No 60mg QD Take 1 CHI [...] gram 00 times Center packet daily. QUEtiapine 3-0 Yes 25mg QD Take 1 CHI S [...] Me dical mg chewable 00 total) by [facility] tablet mouth 3 (three) times daily as needed for Heartburn. insulin 3-0 Yes 0U Inject 0-[address] lispro [...] gram 00 times Center packet daily. QUEtiapine 3-0 Yes 25mg QD Take 1 CH[facility] [...] daily as needed for Constipati on. bisacodyL [address] 1 [facility] t (DULCOLAX) 8-29 suppositor Naty es 10 mg 00:00: y (10 mg Medical suppository 00 total) Center rectally daily as needed. calcium 2022-0 Yes 1000mg Take [address] [facility] [address] carbonate 8-29 tablets [facility]ukes (TUMS) 500 00:00: (1,000 mg Me dical mg chewable 00 total) by [facility] ter tablet mouth 3 (three) times daily [...] tablet 00 by mouth Center nightly. traMADoL 2022-0 Yes 50mg Take [address] [facility] [address] (ULTRAM) 50 8-29 tablet (50 Birdie kes mg tablet 00:00: mg total) Med ical 00 by mouth Center every 6 (six) hours as needed (Moderate to severe acute postop pain). Max Daily Amount: 200 mg NIFEdipine 2022-0 2024- Yes 60mg Q.5D Take [address] [address] (PROCARDIA- 8-29 08-28 tablet (60 L ukes XL) 60 MG 00:00: 23:59 mg total) Me dical (OSM) 24 hr 00 :00 by mouth 2 Ce nter tablet (two) times daily. carvediloL 2023- Yes 6.25mg Q.5D Take [address] (COREG) 8- 08-28 tablet [facility] 6.25 MG 00:00: 23:59 (6.25 mg Medic al tablet 00 :00 total) by Center mouth 2 (two) times daily. insulin 2023- Yes 0U Inject 0-[address] lispro 8-29 08-28 Units [facility]ukes (HumaLOG) 00:00: 23:59 subcutaneo M edical 100 unit/mL 00 :00 usly 3 Center injection (three) times daily before meals. senna-docus 2023- Yes 2{tbl} QD Take [address] ate 07-23 08-28 tablets by [facility] (SENOKOT S) 00:00: 23:59 mouth Medi matt 8.6-50 mg 00 :00 nightly. Center per tablet NIFEdipine 2023- Yes 60mg Q.5D Take [address] (PROCARDIA- 07-23-28 tablet (60 L ukes XL) 60 MG 00:00: 23:59 mg total) Me dical (OSM) 24 hr 00 :00 by mouth 2 Ce nter tablet (two) times daily. carvediloL 2023- Yes 6.25mg Q.5D Take [address] (COREG) 07-23 08-28 tablet [facility] 6.25 MG 00:00: 23:59 (6.25 mg Medic al tablet 00 :00 total) by Center mouth 2 (two) times daily. insulin 2023- Yes 0U Inject 0-[address] lispro 8-29 08-28 Units [facility]ukes (HumaLOG) 00:00: 23:59 subcutaneo M edical 100 unit/mL 00 :00 usly 3 Center injection (three) times daily before meals. senna-docus 2023- Yes 2{tbl} QD Take [address] ate 8- 08-28 tablets by [facility] (SENOKOT S) 00:00: 23:59 mouth Medi matt 8.6-50 mg 00 :00 nightly. Center per tablet NIFEdipine 2023-0 2024- Yes 60mg Q.5D Take [address] [...] Observation Time Observation Value Comments Source WEIGHT 2023-08-15 06:00:00 56.1 kg WEIGHT 2023-08-14 04:59:00 53.4 kg HEIGHT 2023-08-12 00:37:00 175.3 cm WEIGHT 2023-08-12 00:37:00 49.896 kg WEIGHT 2023-08-15 06:00:00 56.1 kg WEIGHT 2023-08-14 04:59:00 53.4 kg HEIGHT 2023-08-12 00:37:00 175.3 cm WEIGHT 2023-08-12 00:37:00 49.896 kg WEIGHT 2023-07-23 03:45:00 52.3 kg WEIGHT [...] kg Systolic blood 2023-07-23 13:06:00 153 mm[Hg] [facility] Diastolic blood 2023-07-23 13:06:00 62 mm[Hg] [facility] Heart rate 2023-07-23 13:06:00 57 /min [facility] Body temperature 2023-07-23 13:06:00 37.11 Janice [facility] Respiratory rate 2023-07-23 13:06:00 18 /min [facility] Oxygen saturation in 2023-07-23 13:06:00 95 /min [facility] Arterial blood by Medical Ce nter Pulse oximetry Body weight 2023-07-23 03:45:00 52.3 kg [facility] Systolic blood 2023-07-12 11:00:00 153 mm[Hg] [facility] Diastolic blood 2023-07-12 11:00:00 69 mm[Hg] [facility] Heart rate 2023-07-12 11:00:00 55 /min [facility] Body temperature 2023-07-12 11:00:00 36.28 Janice [facility] Respiratory rate 2023-07-12 11:00:00 18 /min [facility] Oxygen saturation in 2023-07-12 11:00:00 97 /min [facility] Arterial blood by Medical Ce nter Pulse oximetry Body weight 2023-07-11 04:36:00 52.345 kg [facility] Procedures Procedure Date / Time Performed Performing Clinician Daisy e POCT-GLUCOSE METER 2023-07-23 12:58:00 Jose Juan Martinez [facility] POCT-GLUCOSE METER 2023-07-23 07:27:00 Abilio Hernandez [facility] CBC W/PLT COUNT & AUTO 2023-07-23 04:54:[address] [facility] BASIC METABOLIC PANEL 2023-07-23 04:54:00 Solomon Mathias [facility] PHOSPHORUS 2023-07-23 04:54:00 Jose Juan Martinez [facility] MAGNESIUM 2023-07-23 04:54:00 Katey Jose Juan [facility] CBC W/PLT COUNT & AUTO 2023-07-23 04:54:[address] [facility] (CELLAVISION MANUAL 2023-07-23 04:54:00 Solomon Mathias [facility] DIFF) [facility] ECG 12-LEAD 2023-07-23 04:17:14 Jossue Almonte [facility] POCT-GLUCOSE METER 2023-07-22 20:58:00 [facility]SE METER 2023-07-22 16:40:00 [facility] POCT-GLUCOSE METER 2023-07-22 12:46:00 [facility] ABDOMEN/KUB 1 VIEW 2023-07-22 10:02:[facility] PO[facility]SE [facility]ER 2023-07-22 07:08:00 [facility] 12-LEAD 2023-07-22 05:13:56 Jossue Almonte [facility] ECG 12-LEAD 2023-07-22 05:13:56 Unknown, Hl7 Doctor [facility] CBC W/PLT COUNT & AUTO 2023-07-22 04:31:00 Solomon Mathias [facility] BASIC METABOLIC PANEL 2023-07-22 04:31:00 Solomon Mathias [facility] PHOSPHORUS 2023-07-22 04:31:00 MartinezJose Juan [facility] MAGNESIUM 2023-07-22 04:31:00 Katey Jose Juan [facility] CBC W/PLT COUNT & AUTO 2023-07-22 04:31:00 Solomon Mathias [facility] (CELLAVISION MANUAL 2023-07-22 04:31:00 [facility] POCT-GLUCOSE METER 2023-07-21 20:52:00 Jossue Almonte [facility] POCT-GLUCOSE METER 2023-07-21 16:59:00 Jossue Almonte [facility] POCT-GLUCOSE METER 2023-07-21 11:01:00 Jossue Almonte [facility] POCT-GLUCOSE METER 2023-07-21 08:54:00 Jossue Almonte [facility] ECG 12-LEAD 2023-07-21 08:46:25 [facility] 2023-07-21 08:46:25 Unknown, Hl7 Doctor [facility] CBC W/PLT COUNT & AUTO 2023-07-21 04:35:[address] [facility] BASIC METABOLIC PANEL 2023-07-21 04:35:00 StewSolomon wilson [facility] PHOSPHORUS 2023-07-21 04:35:00 MartinezJose Juan [facility] MAGNESIUM 2023-07-21 04:35:00 Martinez Jose Juan [facility] CBC W/PLT COUNT & AUTO 2023-07-21 04:35:[address] [facility] (CELLAVISION MANUAL 2023-07-21 04:35:00 Solomon Mathias [facility] S [facility]FF[facility] POCT-GLUCOSE METER 2023-07-20 21:41:00 Jossue Almonte [facility] POCT-GLUCOSE METER 2023-07-20 18:01:00 Jossue Almonte [facility] CBC W/PLT COUNT & AUTO 2023-07-20 04:47:00 Solomon Mathias [facility] BASIC METABOLIC PANEL 2023-07-20 04:47:00 Solomon Mathias [facility] HEMOGLOBIN A1C 2023-07-20 04:47:00 Katey Jose Juan [facility] PHOSPHORUS 2023-07-20 04:47:00 Martinez [facility] MAG[facility]ESIUM 2023-07-20 04:47[facility] & AUTO 2023-07-20 04:47:[address] [facility] (CELLAVISION MANUAL 2023-07-20 04:47:00 Solomon Mathias [facility] S [facility] DIFF) [facility] HEMOGLOBIN AND 2023 18:14:00 Katey Jose Juan [facility] PO[facility]SE METER 2023 16:38:00 [facility] PO[facility]-GLUCOSE METER 2023 04:51:00 Martinez [facility] PHOS[facility]US 2023 03:14:00 StewSolomon wilson [facility] MAGNESIUM 2023 03:14:00 StewSolomon wilson [facility] CBC W/PLT COUNT & AUTO 2023 03:14:[address] [facility] BASIC METABOLIC PANEL 2023 03:14:00 Solomon Mathias [facility] CBC W/PLT COUNT & AUTO 2023 03:14:00 Solomon Mathias [facility] (CELLAVISION MANUAL 2023 03:14:00 Solomon Mathias [facility] POCT-GLUCOSE METER 2023-07-18 21:10:00 Martinez [facility] POCT-GLUCOSE METER 2023-07-18 16:40:00 [facility] POCT-GLUCOSE METER 2023-07-18 11:03:00 [facility] POCT-GLUCOSE METER 2023-07-18 08:15:00 Katey [facility] PHOSPHORUS 2023-07-18 02:40:00 StewSolomon wilson [facility] MAGNESIUM 2023-07-18 02:40:00 StewSolomon wilson [facility] CBC W/PLT COUNT & AUTO 2023-07-18 02:40:[address] Solomon Math[address] [facility] BASIC METABOLIC PANEL 2023-07-18 02:40:00 StewSolomon wilson [facility] CBC W/PLT COUNT & AUTO 2023-07-18 02:40:[address] [facility] (CELLAVISION MANUAL 2023-07-18 02:40:00 Solomon Mathias [facility] S t [facility] DIFF) [facility] POCT-GLUCOSE METER 2023-07-17 20:57:00 [facility] POCT-GLUCOSE METER 2023-07-17 16:32:00 [facility] ALBUMIN 2023-07-17 12:55:00 Tavon Cisnerosimie [facility] PREALBUMIN 2023-07-17 12:55:00 Tavon [facility]Centin[facility] POCT-GLUCOSE METER 2023-07-17 12:03:00 [facility] PHOSPHORUS 2023-07-17 04:19:00 Solomon Mathias [facility] MAGNESIUM 2023-07-17 04:19:00 Stew [facility] CBC W/PLT COUNT & AUTO 2023-07-17 04:19:[address] Solomon [address] [facility] BASIC METABOLIC PANEL 2023-07-17 04:19:00 Solomon Mathias El [facility] CBC W/PLT COUNT & AUTO 2023-07-17 04:19:00 Solomon Mathias [facility] (CELLAVISION MANUAL 2023-07-17 04:19:00 Solomon Matihas [facility] S [facility] DIFF) [facility] PREPARE RBC 2023-07-17 00:43:00 Tyron Alvarado [facility] POCT-GLUCOSE METER 2023-07-16 23:51:00 Katey Jose Juan [facility] CALCIUM, IONIZED 2023-07-16 22:49:00 Solomon Mathias [facility] PHOSPHORUS 2023-07-16 22:49:00 StewSolomon wilson [facility] MAGNESIUM 2023-07-16 22:49:00 Stew, [facility] CBC W/PLT COUNT & AUTO 2023-07-16 22:49:00 Solomon Mathias [facility] BASIC METABOLIC PANEL 2023-07-16 22:49:00 Solomon Mathias El [facility] CBC W/PLT COUNT & AUTO 2023-07-16 22:49:00 Solomon Mathias [facility] (CELLAVISION MANUAL 2023-07-16 22:49:00 Solomon Mathias [facility] POCT-ACT 2023-07-16 20:15:00 Katey [facility] POCT-ACT 2023-07-16 19:40:00 [facility] 2023-07-16 19:04:00 [facility] RRL CRIT[facility]S 2023-07-16 19:00:00 Jordyn [facility] (ABG,NA,K,H&H,GLUCOSE) [facility] enter CALCIUM, IONIZED 2023-07-16 19:00:00 Jordyn [facility] BLOOD GAS, ARTERIAL 2023-07-16 19:00:00 Jordyn [facility] SODIUM NA-STAT LAB 2023-07-16 19:00:00 Jordyn [facility] POTASSIUM-STAT LAB 2023-07-16 19:00:00 Jordyn [facility] GLUCOSE-STAT LAB 2023-07-16 19:00:00 Jordyn [facility] HGB/HCT (H&H) - STAT LAB 2023-07-16 19:00:00 Jordyn [facility] POCT-ACT 2023-07-16 18:27:00 Katey [facility] RRL CRITICAL LABS 2023-07-16 18:15:51 Jordyn [facility] (ABG,NA,K,H&H,GLUCOSE) [facility] enter CALCIUM, IONIZED 2023-07-16 18:15:51 Jordyn [facility] BLOOD GAS, ARTERIAL 2023-07-16 18:15:51 Jordyn [facility] SODIUM NA-STAT LAB 2023-07-16 18:15:51 Jordyn [facility] POTASSIUM-STAT LAB 2023-07-16 18:15:51 Jordyn [facility] GLUCOSE-STAT LAB 2023-07-16 18:15:51 Jordyn [facility] HGB/HCT (H&H) - STAT LAB 2023-07-16 18:15:51 Jordyn [facility] RRL CRITICAL LABS 2023-07-16 16:51:03 Dacia [facility] (ABG,NA,K,H&H,GLUCOSE) Medical C enter CALCIUM, IONIZED 2023-07-16 16:51:03 Dacia [facility] BLOOD GAS, ARTERIAL 2023-07-16 16:51:03 Dacia [facility] SODIUM NA-STAT LAB 2023-07-16 16:51:03 Dacia [facility] POTASSIUM-STAT LAB 2023-07-16 16:51:03 Dacia [facility] GLUCOSE-STAT LAB 2023-07-16 16:51:03 Dacia [facility] HGB/HCT (H&H) - STAT LAB 2023-07-16 16:51:03 Dacia [facility] REPAIR,ANEURYSM 2023-07-16 15:31:00 Lee Pettit [facility] FEMORAL/POPLITEAL [facility] VENOUS DOPPLER LEGS 2023-07-16 08:49:22 Simeon Causey [facility] CBC (HEMOGRAM ONLY) 2023-07-16 04:19:00 Deja Shelton [facility] BASIC METABOLIC PANEL 2023-07-16 04:19:00 Nikita, [facility] PROTHROMBIN TIME/INR 2023-07-16 04:19:00 NikitaDeja [facility] TYPE AND SCREEN, 2023-07-15 16:29:00 [facility]OLIC PANEL 2023-07-13 05:47:00 Jenny Tyron [facility] CBC (HEMOGRAM ONLY) 2023-07-13 05:47:00 Tyron Alvarado [facility] VEIN MAPPING LEGS 2023-07-12 19:45:00 [facility]OL[facility] 2023-07-12 04:23:00 Tyron Alvarado [facility] CBC (HEMOGRAM ONLY) 2023-07-12 04:23:00 Tyron Alvarado [facility] PSA 2023-07-12 04:23:00 Katey Jose Juan [facility] 2D ECHO W/ DOPPLER 2023-07-11 09:25:00 Todd Joya [facility] (CW/PW/COLOR) [facility] BASIC METABOLIC PANEL 2023-07-11 05:07:00 Jenny Tyron [facility] CBC (HEMOGRAM ONLY) 2023-07-11 05:07:00 Tyron Alvarado [facility] MAGNESIUM 2023-07-11 05:07:00 Jose Juan Martinez [facility] PHOSPHORUS 2023-07-11 05:07:00 Charles [facility] ABORH, MANUAL 2023-07-10 18:26:00 Terra Pearce [facility] SARS-COV2/RT-PCR ([facility] & 2023-07-10 17:34:00 [facility] REF LABS) Medical Center TYPE AND SCREEN, 2023-07-10 17:34:00 [facility] ECG 12-LEAD 2023-07-10 17:25:45 Vitor Root [facility] ECG 12-LEAD 2023-07-10 17:25:45 Unknown, Hl7 Doctor [facility] CTA AAA AND RUNOFF 2023-07-10 16:25:38 MinasaelJina [facility] HIGH SENSITIVITY 2023-07-10 12:32:00 Mahnaz Todd Meza [facility] TROPONIN I [facility] Center URINE CULTURE 2023-07-10 08:45:00 [facility] URINALYS[facility] W/ REFLEX 2023-07-10 08:45:00 Padilla [facility] URINE CULTURE [facility] Center BLOOD CULTURE 2023-07-10 04:27:00 [facility] BASIC METABOLIC PANEL 2023-07-10 04:26:00 Jenny [facility] MAGNESIUM 2023-07-10 04:26:00 Jenny [facility] PHOSPHORUS 2023-07-10 04:26:00 Jenny [facility] CBC W/PLT COUNT & AUTO 2023-07-10 04:26:00 Jenny [facility] DIFFERENTIAL [facility] CBC W/PLT COUNT & AUTO 2023-07-10 04:26:[facility] Planned Activity Planned Date Details Comments Source Future Scheduled 2027-08-08 DTAP/TDAP/TD VACCINES [facility] Test 00:00:00 (2 - Td or Tdap) [code Medic al Center = DTAP/TDAP/TD VACCINES (2 - Td or Tdap)] Future Scheduled 2027-08-08 DTAP/TDAP/TD VACCINES [facility] Test 00:00:00 (2 - Td or Tdap) [code Medic al Center = DTAP/TDAP/TD VACCINES (2 - Td or Tdap)] Future Scheduled 2027-08-08 DTAP/TDAP/TD VACCINES [facility] Test 00:00:00 (2 - Td or Tdap) [code Medic al Center = DTAP/TDAP/TD VACCINES (2 - Td or Tdap)] Future Scheduled 2024-07-24 Tobacco Cessation [facility] Test 00:00:00 Counseling [facility] Medical Cente r [...] Medical Center DEPRESSION SCREENING (12+)] Future Scheduled 2017-12-03 PNEUMOCOCCAL 65+ YRS [facility] [...] Medica l Center lung (procedure) [code = 022372532] Future Scheduled [address] [facility] Test 00:00:00 malignant neoplasm of Medica l Center lung (procedure) [code = 605606522] Future Scheduled 1995 [facility] (procedure) [code = 401526717] Future Scheduled [address] [facility] (procedure) [code = 424903768] Future Scheduled 1996 SHINGLES VACCINES ([address] [facility] 00:00:00 of 2) [code = SHINGLES [facility] Center VACCINES (1 of 2)] Future Scheduled 1965 DTAP/TDAP/TD VACCINES [facility] [...] Date/Time Type Type Clinicians Facility Department ID 2023-08-13 Inpatient ER JENNY, [facility] [id number] [facility] 19:15:39 TYRON 2023-08-12 Inpatient ER JENNY, [facility]H [facility] [id number] [facility] 13:03:35 TYRON 2023-08-12 Inpatient ER BLAYNE SLEH SLEH [id number] SLEH 12:53:18 [facility] 2023-08-12 Inpatient ER BLAYNE, SLEH SLEH [id number] SLEH 11:07:44 [facility] 2023-08-12 Inpatient ER JENNY, SLEH SLEH [id number] SLEH 10:55:48 TYRON 2023-07-22 Inpatient ER ABILIO HERNANDEZ [facility] SLE [id number] SLEH 09:18:36 2023-07-16 Inpatient ER WILVER, [facility]H [facility] [id number] [facility] 07:31:47 [facility] ER WILVER, SLEH SLEH [id number] SLEH 17:49:59 BERNABE 2023-07-11 Inpatient ER JOSE JUAN MARTINEZ [facility] SLEH [id number] SLEH 07:38:53 2020-11-03 Outpatient DAVE, [facility] [address] [facility] 14:19:59 BEATRIZ 2023-08-12 2023-08-17 [id number] 00:02:00 20:00:00 MED 2023-08-12 2023-08-12 [id number] SLE 11:53:29 00:00:00 NAHID KNAPP 2023-07-09 2023-07-23 Inpatient ER JOSE JUAN MARTINEZ [facility] Surgery [id number] SLE 20:54:00 14:45:00 2023-07-09 2023-07-23 Hospital ER Heydi Castaneda [facility] [id number] 20:54[facility] 14:45:00 Encounter Tyron Alvarado [facility], Jossue [facility] Abilio Hernandez 2023-07-16 2023-07-16 Anesthesia Parvez Pederson [facility] [id number] [facility] 15:41[facility]00 22:13:00 Event Blayne Larose [facility] 2023-07-16 2023-07-16 Surgery Wilver [facility] [id number] 15:00:00 18:46:00 [facility] 2023-07-10 2023-07-10 Inpatient ER WILVER [facility] [id number] SLE 16:07:16 00:00:00 [facility] 2023-07-10 2023-07-10 Outpatient WILVER [facility] [id number] [facility] 00:00:00 00:00:00 [facility] 2023-07-10 2023-07-10 Orders [facility] [id number] 00:00:00 00:00:00 Only [facility] 2023-07-09 2023-07-09 Travel BESS [facility] [id number] [facility] 00:[facility]00 [facility] Results Test Description Test Time Test Comments Results Result Comments Source POCT-GLUCOSE METER 2023-08-17 11:38:02 Test Item Value Reference Range Interpretation Comme nts POC-GLUCOSE METER (BEAKER) 166 mg/dL 70-110 H : TESTED AT [facility] [address] (test code = 1538) JULIANA Velasco [address]: Gas Engineer/Techni krystal ID = [id number] for Frank Solorzano POCT-GLUCOSE [id number] 07:51:21 Test Item Value Reference Range Interpretation Comments POC-GLUCOSE METER 115 mg/dL 70-110 H : TESTED A T [facility] [address] (BEAKER) (test code = [place], 1538) [address]: Gas Engineer/Techni krystal ID = [id number] for Frank Velarde COMPREHENSIVE METABOLIC [id number] 05:34:48 Test Item Value Reference Range Interpretation Comments TOTAL PROTEIN 4.8 gm/dL 6.0-8.3 L (BEAKER) (test code = 770) ALBUMIN (BEAKER) 2.7 g/dL 3.5-5.0 L (test code = 1145) ALKALINE 68 U/L 40-150 PHOSPHATASE (BEAKER) (test code = 346) BILIRUBIN TOTAL 0.3 mg/dL 0.2-1.2 (BEAKER) (test code = 377) SODIUM (BEAKER) 143 meq/L 136-145 (test code = 381) POTASSIUM (BEAKER) 3.5 meq/L 3.5-5.1 (test code = 379) CHLORIDE (BEAKER) 115 meq/L 98-107 H (test code = 382) CO2 (BEAKER) (test 24 meq/L 22-29 code = 355) BLOOD UREA 13 mg/dL 7-21 NITROGEN (BEAKER) (test code = 354) CREATININE 0.66 mg/dL 0.57-1.25 (BEAKER) (test code = 358) GLUCOSE RANDOM 118 mg/dL 70-105 H (BEAKER) (test code = 652) CALCIUM (BEAKER) 8.0 mg/dL 8.4-10.2 L (test code = 697) AST (SGOT) 17 U/L 5-34 (BEAKER) (test code = 353) ALT (SGPT) 11 U/L 6-55 (BEAKER) (test code = 347) EGFR (BEAKER) 96 Interpretatio n of eGFR (test code = 1092) mL/min/1.[address] age Description sq m Result G1 Haleigh l or [...] not appl icable for dialysis patien ts Gas Engineer ID - [id number] 05:34:48 Test Item Value Reference Range Interpretation Comments MAGNESIUM (BEAKER) (test code = 2.0 mg/dL 1.6-2.6 627) Gas Engineer ID - BSCBC W/PLT COUNT & AUTO [id number] 05:01:35 Test Item Value Reference Range Interpretation Comments WHITE BLOOD CELL COUNT (BEAKER) 10.2 K/ L 3.5-10.5 (test code = 775) RED BLOOD CELL COUNT (BEAKER) 2.88 M/ L 4.63-6.08 L (test code = 761) HEMOGLOBIN (BEAKER) (test code = 8.6 GM/DL 13.7-17.5 L 410) HEMATOCRIT (BEAKER) (test code = 26.4 % 40.1-51.0 L 411) MEAN CORPUSCULAR VOLUME (BEAKER) 92 fL 79-92 (test code = 753) MEAN CORPUSCULAR HEMOGLOBIN 29.9 pg 25.7-32.2 (BEAKER) (test code = 751) MEAN CORPUSCULAR HEMOGLOBIN CONC 32.6 GM/DL 32.3-36.5 (BEAKER) (test code = 752) RED CELL DISTRIBUTION WIDTH 16.0 % 11.6-14.4 H (BEAKER) (test code = 412) PLATELET COUNT (BEAKER) (test 131 K/CU MM 150-450 L code = 756) MEAN PLATELET VOLUME (BEAKER) 11.1 fL 9.4-12.4 (test code = 754) NUCLEATED RED BLOOD CELLS 0 /100 WBC 0-0 (BEAKER) (test code = 413) NEUTROPHILS RELATIVE PERCENT 58 % (BEAKER) (test code = 429) LYMPHOCYTES RELATIVE PERCENT 23 % (BEAKER) (test code = 430) MONOCYTES RELATIVE PERCENT 12 % (BEAKER) (test code = 431) EOSINOPHILS RELATIVE PERCENT 7 % (BEAKER) (test code = 432) BASOPHILS RELATIVE PERCENT 1 % (BEAKER) (test code = 437) NEUTROPHILS ABSOLUTE COUNT 5.85 K/ L 1.78-5.38 H (BEAKER) (test code = 670) LYMPHOCYTES ABSOLUTE COUNT 2.30 K/ L 1.32-3.57 (BEAKER) (test code = 414) MONOCYTES ABSOLUTE COUNT (BEAKER) 1.18 K/ L 0.30-0.82 H (test code = 415) EOSINOPHILS ABSOLUTE COUNT 0.72 K/ L 0.04-0.54 H (BEAKER) (test code = 416) BASOPHILS ABSOLUTE COUNT (BEAKER) 0.07 K/ L 0.01-0.08 (test code = 417) IMMATURE GRANULOCYTES-RELATIVE 0.50 % 0.00-1.00 PERCENT (BEAKER) (test code = 2801) BLOOD [id number] 02:00:48 Test Item Value Reference Range Interpretation Comments CULTURE (BEAKER) (test No growth in 5 days code = 1095) BLOOD [id number] 02:00:48 Test Item Value Reference Range Interpretation Comments CULTURE (BEAKER) (test No growth in 5 days code = 1095) POCT-GLUCOSE [id number] 20:35:03 Test Item Value Reference Range Interpretation Comments POC-GLUCOSE METER 182 mg/dL 70-110 H : TESTED A T [facility] 6720 (BEAKER) (test code = [facility], 153) [address]: Gas Engineer/Techni krystal ID = [id number] for SAY LIN POCT-GLUCOSE [id number] 17:59:48 Test Item Value Reference Range Interpretation Comments POC-GLUCOSE METER 158 mg/dL 70-110 H : TESTED A T [facility] 6720 (BEAKER) (test code = [facility], 153) 61539: Gas Engineer/Techni krystal ID = [id number] for Kraig Nicole BASIC METABOLIC [id number] 03:14:39 Test Item Value Reference Range Interpretation Comments SODIUM (BEAKER) 145 meq/L 136-145 (test code = 381) POTASSIUM 3.5 meq/L 3.5-5.1 (BEAKER) (test code = 379) CHLORIDE (BEAKER) 116 meq/L 98-107 H (test code = 382) CO2 (BEAKER) 24 meq/L 22-29 (test code = 355) BLOOD UREA 21 mg/dL 7-21 NITROGEN (BEAKER) (test code = 354) CREATININE 0.70 mg/dL 0.57-1.25 (BEAKER) (test code = 358) GLUCOSE RANDOM 124 mg/dL 70-105 H (BEAKER) (test code = 652) CALCIUM (BEAKER) 8.2 mg/dL 8.4-10.2 L (test code = 697) EGFR (BEAKER) 95 [...] not appl icable for dialysis patien ts Gas Engineer ID - [id number] 03:14:39 Test Item Value Reference Range Interpretation Comments MAGNESIUM (BEAKER) (test code = 2.0 mg/dL 1.6-2.6 627) Gas Engineer ID - [id number] 03:14:39 Test Item Value Reference Range Interpretation Comments PHOSPHORUS (BEAKER) (test code = 2.6 mg/dL 2.3-4.7 604) Gas Engineer ID - BSCBC W/PLT COUNT & AUTO [id number] 02:55:55 Test Item Value Reference Range Interpretation Comments WHITE BLOOD CELL COUNT (BEAKER) 11.1 K/ L 3.5-10.5 H (test code = 775) RED BLOOD CELL COUNT (BEAKER) 3.19 M/ L 4.63-6.08 L (test code = 761) HEMOGLOBIN (BEAKER) (test code = 9.5 GM/DL 13.7-17.5 L 410) HEMATOCRIT (BEAKER) (test code = 29.0 % 40.1-51.0 L 411) MEAN CORPUSCULAR VOLUME (BEAKER) 91 fL 79-92 (test code = 753) MEAN CORPUSCULAR HEMOGLOBIN 29.8 pg 25.7-32.2 (BEAKER) (test code = 751) MEAN CORPUSCULAR HEMOGLOBIN CONC 32.8 GM/DL 32.3-36.5 (BEAKER) (test code = 752) RED CELL DISTRIBUTION WIDTH 15.6 % 11.6-14.4 H (BEAKER) (test code = 412) PLATELET COUNT (BEAKER) (test 114 K/CU MM 150-450 L code = 756) MEAN PLATELET VOLUME (BEAKER) 10.9 fL 9.4-12.4 (test code = 754) NUCLEATED RED BLOOD CELLS 0 /100 WBC 0-0 (BEAKER) (test code = 413) NEUTROPHILS RELATIVE PERCENT 64 % (BEAKER) (test code = 429) LYMPHOCYTES RELATIVE PERCENT 20 % (BEAKER) (test code = 430) MONOCYTES RELATIVE PERCENT 10 % (BEAKER) (test code = 431) EOSINOPHILS RELATIVE PERCENT 5 % (BEAKER) (test code = 432) BASOPHILS RELATIVE PERCENT 1 % (BEAKER) (test code = 437) NEUTROPHILS ABSOLUTE COUNT 7.11 K/ L 1.78-5.38 H (BEAKER) (test code = 670) LYMPHOCYTES ABSOLUTE COUNT 2.16 K/ L 1.32-3.57 (BEAKER) (test code = 414) MONOCYTES ABSOLUTE COUNT (BEAKER) 1.07 K/ L 0.30-0.82 H (test code = 415) EOSINOPHILS ABSOLUTE COUNT 0.60 K/ L 0.04-0.54 H (BEAKER) (test code = 416) BASOPHILS ABSOLUTE COUNT (BEAKER) 0.08 K/ L 0.01-0.08 (test code = 417) IMMATURE GRANULOCYTES-RELATIVE 0.50 % 0.00-1.00 PERCENT (BEAKER) (test code = 2801) POCT-GLUCOSE [id number] 22:43:31 Test Item Value Reference Range Interpretation Comments POC-GLUCOSE METER 149 mg/dL 70-110 H : TESTED John T [facility] [address] (BEAKER) (test code = [place], 1538) [address]: Gas Engineer/Techni krystal ID = [id number] for Mi Moore HEMOGLOBIN AND [id number] 19:32:14 Test Item Value Reference Range Interpretation Comments HEMOGLOBIN (BEAKER) (test code = 9.0 GM/DL 13.7-17.5 L 410) HEMATOCRIT (BEAKER) (test code = 26.5 % 40.1-51.0 L 411) Gas Engineer ID - [id number] ID - [id number]-GLUCOSE [id number] 18:38:52 Test Item Value Reference Range Interpretation Comments POC-GLUCOSE METER 189 mg/dL 70-110 H : TESTED A T [facility] 67[address] (BEAKER) (test code = [facility], 1538) 14921: Gas Engineer/Techni krystal ID = [id number] for MARY CARMEN LEGGETT, ANA POCT-GLUCOSE [id number] 17:55:02 Test Item Value Reference Range Interpretation Comments POC-GLUCOSE METER 199 mg/dL 70-110 H : TESTED A T [facility] 67[address] (BEAKER) (test code = [facility], 1538) 75584: Gas Engineer/Techni krystal ID = [id number] for MA RIN, ANA POCT-GLUCOSE [id number] 11:46:23 Test Item Value Reference Range Interpretation Comments POC-GLUCOSE METER 104 mg/dL 70-110 : TESTED A T [facility] 67[address] (BEAKER) (test code = [facility], 1538) 83218: Gas Engineer/Techni krystal ID = [id number] for MARY CARMEN RIN, ANA POCT-GLUCOSE [id number] 05:39:48 Test Item Value Reference Range Interpretation Comments POC-GLUCOSE METER 87 mg/dL 70-110 : TESTED A T [facility] 67[address] (BEAKER) (test code = [facility], 1538) 34376: Gas Engineer/Techni krystal ID = [id number] for Guid ry (contract), Aub mel [id number] 05:39:22 Test Item Value Reference Range Interpretation Comments MAGNESIUM (BEAKER) (test code = 2.0 mg/dL 1.6-2.6 627) Gas Engineer ID - EMBASIC METABOLIC [id number] 05:39:21 Test Item Value Reference Range Interpretation Comments SODIUM (BEAKER) 143 meq/L 136-145 (test code = 381) POTASSIUM 3.2 meq/L 3.5-5.1 L (BEAKER) (test code = 379) CHLORIDE (BEAKER) 113 meq/L 98-107 H (test code = 382) CO2 (BEAKER) 24 meq/L 22-29 (test code = 355) BLOOD UREA 13 mg/dL 7-21 NITROGEN (BEAKER) (test code = 354) CREATININE 0.59 mg/dL 0.57-1.25 (BEAKER) (test code = 358) GLUCOSE RANDOM 81 mg/dL 70-105 (BEAKER) (test code = 652) CALCIUM (BEAKER) 8.2 mg/dL 8.4-10.2 L (test code = 697) EGFR (BEAKER) 99 [...] not appl icable for dialysis patien ts Gas Engineer ID - EMCBC W/PLT COUNT & AUTO [id number] 05:12:43 Test Item Value Reference Range Interpretation Comments WHITE BLOOD CELL COUNT (BEAKER) 13.9 K/ L 3.5-10.5 H (test code = 775) RED BLOOD CELL COUNT (BEAKER) 3.20 M/ L 4.63-6.08 L (test code = 761) HEMOGLOBIN (BEAKER) (test code = 9.6 GM/DL 13.7-17.5 L 410) HEMATOCRIT (BEAKER) (test code = 28.6 % 40.1-51.0 L 411) MEAN CORPUSCULAR VOLUME (BEAKER) 89 fL 79-92 (test code = 753) MEAN CORPUSCULAR HEMOGLOBIN 30.0 pg 25.7-32.2 (BEAKER) (test code = 751) MEAN CORPUSCULAR HEMOGLOBIN CONC 33.6 GM/DL 32.3-36.5 (BEAKER) (test code = 752) RED CELL DISTRIBUTION WIDTH 15.8 % 11.6-14.4 H (BEAKER) (test code = 412) PLATELET COUNT (BEAKER) (test 123 K/CU MM 150-450 L code = 756) MEAN PLATELET VOLUME (BEAKER) 10.9 fL 9.4-12.4 (test code = 754) NUCLEATED RED BLOOD CELLS 0 /100 WBC 0-0 (BEAKER) (test code = 413) NEUTROPHILS RELATIVE PERCENT 71 % (BEAKER) (test code = 429) LYMPHOCYTES RELATIVE PERCENT 14 % (BEAKER) (test code = 430) MONOCYTES RELATIVE PERCENT 9 % (BEAKER) (test code = 431) EOSINOPHILS RELATIVE PERCENT 5 % (BEAKER) (test code = 432) BASOPHILS RELATIVE PERCENT 1 % (BEAKER) (test code = 437) NEUTROPHILS ABSOLUTE COUNT 9.88 K/ L 1.78-5.38 H (BEAKER) (test code = 670) LYMPHOCYTES ABSOLUTE COUNT 2.00 K/ L 1.32-3.57 (BEAKER) (test code = 414) MONOCYTES ABSOLUTE COUNT (BEAKER) 1.25 K/ L 0.30-0.82 H (test code = 415) EOSINOPHILS ABSOLUTE COUNT 0.63 K/ L 0.04-0.54 H (BEAKER) (test code = 416) BASOPHILS ABSOLUTE COUNT (BEAKER) 0.10 K/ L 0.01-0.08 H (test code = 417) IMMATURE GRANULOCYTES-RELATIVE 0.40 % 0.00-1.00 PERCENT (BEAKER) (test code = 2801) POCT-GLUCOSE [id number] 23:44:58 Test Item Value Reference Range Interpretation Comments POC-GLUCOSE METER 90 mg/dL 70-110 : TESTED A T [facility] 67[address] ([facility]) (test code = [facility], 153) 53830: Gas Engineer/Techni krystal ID = [id number] for Brant ry (contract), July leal POCT-GLUCOSE [id number] 18:34:41 Test Item Value Reference Range Interpretation Comments POC-GLUCOSE METER 92 mg/dL 70-110 : TESTED A T [facility] 67[address] ([employer]) (test code = [facility], 153) 13192: Gas Engineer/Techni krystal ID = [id number] for Albert s (contract)Gaf brock POCT-GLUCOSE [id number] 13:59:34 Test Item Value Reference Range Interpretation Comments POC-GLUCOSE METER 111 mg/dL 70-110 H : TESTED A T [facility] 67[address] (BEAKER) (test code = [place], 1538) 11554: Gas Engineer/Techni krystal ID = [id number] for Marcus tamayo (contract)Gaf brock CBC W/PLT COUNT & AUTO [id number] 09:52:45 Test Item Value Reference Range Interpretation Comments WHITE BLOOD CELL COUNT (BEAKER) 12.6 K/ L 3.5-10.5 H (test code = 775) RED BLOOD CELL COUNT (BEAKER) 2.89 M/ L 4.63-6.08 L (test code = 761) HEMOGLOBIN (BEAKER) (test code = 8.6 GM/DL 13.7-17.5 L 410) HEMATOCRIT (BEAKER) (test code = 25.5 % 40.1-51.0 L 411) MEAN CORPUSCULAR VOLUME (BEAKER) 88 fL 79-92 (test code = 753) MEAN CORPUSCULAR HEMOGLOBIN 29.8 pg 25.7-32.2 (BEAKER) (test code = 751) MEAN CORPUSCULAR HEMOGLOBIN CONC 33.7 GM/DL 32.3-36.5 (BEAKER) (test code = 752) RED CELL DISTRIBUTION WIDTH 15.9 % 11.6-14.4 H (BEAKER) (test code = 412) PLATELET COUNT (BEAKER) (test 103 K/CU MM 150-450 L code = 756) MEAN PLATELET VOLUME (BEAKER) 11.3 fL 9.4-12.4 (test code = 754) NUCLEATED RED BLOOD CELLS 0 /100 WBC 0-0 (BEAKER) (test code = 413) NEUTROPHILS RELATIVE PERCENT 72 % (BEAKER) (test code = 429) LYMPHOCYTES RELATIVE PERCENT 17 % (BEAKER) (test code = 430) MONOCYTES RELATIVE PERCENT 8 % (BEAKER) (test code = 431) EOSINOPHILS RELATIVE PERCENT 2 % (BEAKER) (test code = 432) BASOPHILS RELATIVE PERCENT 1 % (BEAKER) (test code = 437) NEUTROPHILS ABSOLUTE COUNT 9.09 K/ L 1.78-5.38 H (BEAKER) (test code = 670) LYMPHOCYTES ABSOLUTE COUNT 2.10 K/ L 1.32-3.57 (BEAKER) (test code = 414) MONOCYTES ABSOLUTE COUNT (BEAKER) 1.00 K/ L 0.30-0.82 H (test code = 415) EOSINOPHILS ABSOLUTE COUNT 0.24 K/ L 0.04-0.54 (BEAKER) (test code = 416) BASOPHILS ABSOLUTE COUNT (BEAKER) 0.10 K/ L 0.01-0.08 H (test code = 417) IMMATURE GRANULOCYTES-RELATIVE 0.40 % 0.00-1.00 PERCENT (BEAKER) (test code = 2801) [id number] 09:04:51 Test Item Value Reference Range Interpretation Comments PHOSPHORUS (BEAKER) (test code = 2.3 mg/dL 2.3-4.7 604) Gas Engineer ID - EMCBC W/PLT COUNT & AUTO [id number] 06:45:07 Test Item Value Reference Range Interpretation Comments WHITE BLOOD CELL COUNT (BEAKER) 12.8 K/ L 3.5-10.5 H (test code = 775) RED BLOOD CELL COUNT (BEAKER) 3.01 M/ L 4.63-6.08 L (test code = 761) HEMOGLOBIN (BEAKER) (test code = 8.8 GM/DL 13.7-17.5 L 410) HEMATOCRIT (BEAKER) (test code = 27.5 % 40.1-51.0 L 411) MEAN CORPUSCULAR VOLUME (BEAKER) 91 fL 79-92 (test code = 753) MEAN CORPUSCULAR HEMOGLOBIN 29.2 pg 25.7-32.2 (BEAKER) (test code = 751) MEAN CORPUSCULAR HEMOGLOBIN CONC 32.0 GM/DL 32.3-36.5 L (BEAKER) (test code = 752) RED CELL DISTRIBUTION WIDTH 15.8 % 11.6-14.4 H (BEAKER) (test code = 412) PLATELET COUNT (BEAKER) (test code 96 K/CU MM 150-450 L = 756) MEAN PLATELET VOLUME (BEAKER) 11.1 fL 9.4-12.4 (test code = 754) NUCLEATED RED BLOOD CELLS (BEAKER) 0 /100 WBC 0-0 (test code = 413) NEUTROPHILS RELATIVE PERCENT 71 % (BEAKER) (test code = 429) LYMPHOCYTES RELATIVE PERCENT 17 % (BEAKER) (test code = 430) MONOCYTES RELATIVE PERCENT 9 % (BEAKER) (test code = 431) EOSINOPHILS RELATIVE PERCENT 2 % (BEAKER) (test code = 432) BASOPHILS RELATIVE PERCENT 1 % (BEAKER) (test code = 437) NEUTROPHILS ABSOLUTE COUNT 9.01 K/ L 1.78-5.38 H (BEAKER) (test code = 670) LYMPHOCYTES ABSOLUTE COUNT 2.22 K/ L 1.32-3.57 (BEAKER) (test code = 414) MONOCYTES ABSOLUTE COUNT (BEAKER) 1.14 K/ L 0.30-0.82 H (test code = 415) EOSINOPHILS ABSOLUTE COUNT 0.22 K/ L 0.04-0.54 (BEAKER) (test code = 416) BASOPHILS ABSOLUTE COUNT (BEAKER) 0.10 K/ L 0.01-0.08 H (test code = 417) IMMATURE GRANULOCYTES-RELATIVE 0.70 % 0.00-1.00 PERCENT (BEAKER) (test code = 2801) BASIC METABOLIC [id number] 06:37:10 Test Item Value Reference Range Interpretation Comments SODIUM (BEAKER) 145 meq/L 136-145 (test code = 381) POTASSIUM 3.2 meq/L 3.5-5.1 L (BEAKER) (test code = 379) CHLORIDE (BEAKER) 116 meq/L 98-107 H (test code = 382) CO2 (BEAKER) 22 meq/L 22-29 (test code = 355) BLOOD UREA 29 mg/dL 7-21 H NITROGEN (BEAKER) (test code = 354) CREATININE 0.61 mg/dL 0.57-1.25 (BEAKER) (test code = 358) GLUCOSE RANDOM 91 mg/dL 70-105 (BEAKER) (test code = 652) CALCIUM (BEAKER) 7.9 mg/dL 8.4-10.2 L (test code = 697) [...] not appl icable for dialysis patien ts Gas Engineer ID - [id number] 06:36:35 Test Item Value Reference Range Interpretation Comments MAGNESIUM (BEAKER) (test code = 1.8 mg/dL 1.6-2.6 627) Gas Engineer ID - MMPOCT-GLUCOSE [id number] 05:30:38 Test Item Value Reference Range Interpretation Comments POC-GLUCOSE METER 87 mg/dL 70-110 : TESTED A T [facility] 6720 (BEAKER) (test code = [facility], 1538) 65987: Gas Engineer/Techni krystal ID = [id number] for Sae Marin POCT-GLUCOSE [id number] 01:03:07 Test Item Value Reference Range Interpretation Comments POC-GLUCOSE METER 91 mg/dL 70-110 : TESTED A T [facility] 6720 (BEAKER) (test code = [facility], 1538) 61540: Gas Engineer/Techni krystal ID = [id number] for Sae Marin CBC W/PLT COUNT & AUTO [id number] 01:02:06 Test Item Value Reference Range Interpretation Comments WHITE BLOOD CELL COUNT (BEAKER) 13.2 K/ L 3.5-10.5 H (test code = 775) RED BLOOD CELL COUNT (BEAKER) 2.39 M/ L 4.63-6.08 L (test code = 761) HEMOGLOBIN (BEAKER) (test code = 7.0 GM/DL 13.7-17.5 L 410) HEMATOCRIT (BEAKER) (test code = 21.9 % 40.1-51.0 L 411) MEAN CORPUSCULAR VOLUME (BEAKER) 92 fL 79-92 (test code = 753) MEAN CORPUSCULAR HEMOGLOBIN 29.3 pg 25.7-32.2 (BEAKER) (test code = 751) MEAN CORPUSCULAR HEMOGLOBIN CONC 32.0 GM/DL 32.3-36.5 L (BEAKER) (test code = 752) RED CELL DISTRIBUTION WIDTH 16.1 % 11.6-14.4 H (BEAKER) (test code = 412) PLATELET COUNT (BEAKER) (test 109 K/CU MM 150-450 L code = 756) MEAN PLATELET VOLUME (BEAKER) 11.1 fL 9.4-12.4 (test code = 754) NUCLEATED RED BLOOD CELLS 0 /100 WBC 0-0 (BEAKER) (test code = 413) NEUTROPHILS RELATIVE PERCENT 69 % (BEAKER) (test code = 429) LYMPHOCYTES RELATIVE PERCENT 19 % (BEAKER) (test code = 430) MONOCYTES RELATIVE PERCENT 10 % (BEAKER) (test code = 431) EOSINOPHILS RELATIVE PERCENT 1 % (BEAKER) (test code = 432) BASOPHILS RELATIVE PERCENT 1 % (BEAKER) (test code = 437) NEUTROPHILS ABSOLUTE COUNT 9.06 K/ L 1.78-5.38 H (BEAKER) (test code = 670) LYMPHOCYTES ABSOLUTE COUNT 2.52 K/ L 1.32-3.57 (BEAKER) (test code = 414) MONOCYTES ABSOLUTE COUNT (BEAKER) 1.27 K/ L 0.30-0.82 H (test code = 415) EOSINOPHILS ABSOLUTE COUNT 0.19 K/ L 0.04-0.54 (BEAKER) (test code = 416) BASOPHILS ABSOLUTE COUNT (BEAKER) 0.10 K/ L 0.01-0.08 H (test code = 417) IMMATURE GRANULOCYTES-RELATIVE 0.60 % 0.00-1.00 PERCENT (BEAKER) (test code = 2801) XR ABDOMEN/KUB 1 VIEW [id number] 21:16:50 [facility] : 1945 Sex: MEXAM/TECHNIQUE: XR ABDOMEN/KUB 1 VIEW PORTABLEINDICATION: Enteric tube placement verificationCOMPARISON: 08/12/2023.FINDINGS: Gastric tube and sidehole terminate in the expected location of thestomach. No dilatedloops of large small bowel. No acute osseousprocess. Lung bases are clear.IMPRESSION:Gastric tube and sidehole terminate in the expected location of thestomach.Electronically Signed By: Garrett Rodas08/13/2023 21:18 CDTWorkstation Name: [id number] METER 2023-08-13 19:17:39 Test Item Value Reference Range Interpretation Comments POC-GLUCOSE METER 100 mg/dL 70-110 : TESTED A T [facility] 6720 (BEAKER) (test code = [place], 1538) [id number]: Gas Engineer/Techni krystal ID = [id number] for Love Orellana CBC W/PLT COUNT & AUTO [id number] 18:06:06 Test Item Value Reference Range Interpretation Comments WHITE BLOOD CELL COUNT (BEAKER) 15.1 K/ L 3.5-10.5 H (test code = 775) RED BLOOD CELL COUNT (BEAKER) 2.76 M/ L 4.63-6.08 L (test code = 761) HEMOGLOBIN (BEAKER) (test code = 8.2 GM/DL 13.7-17.5 L 410) HEMATOCRIT (BEAKER) (test code = 25.0 % 40.1-51.0 L 411) MEAN CORPUSCULAR VOLUME (BEAKER) 91 fL 79-92 (test code = 753) MEAN CORPUSCULAR HEMOGLOBIN 29.7 pg 25.7-32.2 (BEAKER) (test code = 751) MEAN CORPUSCULAR HEMOGLOBIN CONC 32.8 GM/DL 32.3-36.5 (BEAKER) (test code = 752) RED CELL DISTRIBUTION WIDTH 16.3 % 11.6-14.4 H (BEAKER) (test code = 412) PLATELET COUNT (BEAKER) (test 116 K/CU MM 150-450 L code = 756) MEAN PLATELET VOLUME (BEAKER) 10.8 fL 9.4-12.4 (test code = 754) NUCLEATED RED BLOOD CELLS 0 /100 WBC 0-0 (BEAKER) (test code = 413) NEUTROPHILS RELATIVE PERCENT 70 % (BEAKER) (test code = 429) LYMPHOCYTES RELATIVE PERCENT 19 % (BEAKER) (test code = 430) MONOCYTES RELATIVE PERCENT 9 % (BEAKER) (test code = 431) EOSINOPHILS RELATIVE PERCENT 1 % (BEAKER) (test code = 432) BASOPHILS RELATIVE PERCENT 1 % (BEAKER) (test code = 437) NEUTROPHILS ABSOLUTE COUNT 10.53 K/ L 1.78-5.38 H (BEAKER) (test code = 670) LYMPHOCYTES ABSOLUTE COUNT 2.88 K/ L 1.32-3.57 (BEAKER) (test code = 414) MONOCYTES ABSOLUTE COUNT (BEAKER) 1.40 K/ L 0.30-0.82 H (test code = 415) EOSINOPHILS ABSOLUTE COUNT 0.11 K/ L 0.04-0.54 (BEAKER) (test code = 416) BASOPHILS ABSOLUTE COUNT (BEAKER) 0.08 K/ L 0.01-0.08 (test code = 417) IMMATURE GRANULOCYTES-RELATIVE 0.70 % 0.00-1.00 PERCENT (BEAKER) (test code = 2801) POCT-GLUCOSE [id number] 11:39:16 Test Item Value Reference Range Interpretation Comments POC-GLUCOSE METER 106 mg/dL 70-110 : TESTED A T [facility] 6720 (BEAKER) (test code = [facility] [employer], 1538) [id number]: Gas Engineer/Techni krystal ID = [id number] for Julia Murphy LACTIC ACID, [id number] 11:34:41 Test Item Value Reference Range Interpretation Comments LACTATE BLOOD VENOUS 1.10 mmol/L 0.50-2.00 Specime n slightly (2) (BEAKER) (test hemolyzed code = 2872) Gas Engineer ID - EMCBC W/PLT COUNT & AUTO [id number] 11:21:12 Test Item Value Reference Range Interpretation Comments WHITE BLOOD CELL COUNT 14.9 K/ L 3.5-10.5 H (BEAKER) (test code = 775) RED BLOOD CELL COUNT 2.57 M/ L 4.63-6.08 L (BEAKER) (test code = 761) HEMOGLOBIN (BEAKER) 7.6 GM/DL 13.7-17.5 L (test code = 410) HEMATOCRIT (BEAKER) 23.1 % 40.1-51.0 L (test code = 411) MEAN CORPUSCULAR 90 fL 79-92 Discordant results VOLUME (BEAKER) (test compar ed to code = 753) previous, clini matt correlation req uired MEAN CORPUSCULAR 29.6 pg 25.7-32.2 HEMOGLOBIN (BEAKER) (test code = 751) MEAN CORPUSCULAR 32.9 GM/DL 32.3-36.5 HEMOGLOBIN CONC (BEAKER) (test code = 752) RED CELL DISTRIBUTION 15.9 % 11.6-14.4 H WIDTH (BEAKER) (test code = 412) PLATELET COUNT 105 K/CU MM 150-450 L (BEAKER) (test code = 756) MEAN PLATELET VOLUME 10.8 fL 9.4-12.4 (BEAKER) (test code = 754) NUCLEATED RED BLOOD 0 /100 WBC 0-0 CELLS (BEAKER) (test code = 413) NEUTROPHILS RELATIVE 75 % PERCENT (BEAKER) (test code = 429) LYMPHOCYTES RELATIVE 15 % PERCENT (BEAKER) (test code = 430) MONOCYTES RELATIVE 9 % PERCENT (BEAKER) (test code = 431) EOSINOPHILS RELATIVE 0 % PERCENT (BEAKER) (test code = 432) BASOPHILS RELATIVE 1 % PERCENT (BEAKER) (test code = 437) NEUTROPHILS ABSOLUTE 11.17 K/ L 1.78-5.38 H COUNT (BEAKER) (test code = 670) LYMPHOCYTES ABSOLUTE 2.20 K/ L 1.32-3.57 COUNT (BEAKER) (test code = 414) MONOCYTES ABSOLUTE 1.38 K/ L 0.30-0.82 H COUNT (BEAKER) (test code = 415) EOSINOPHILS ABSOLUTE 0.04 K/ L 0.04-0.54 COUNT (BEAKER) (test code = 416) BASOPHILS ABSOLUTE 0.07 K/ L 0.01-0.08 COUNT (BEAKER) (test code = 417) IMMATURE 0.50 % 0.00-1.00 GRANULOCYTES-RELATIVE PERCENT (BEAKER) (test code = 2801) POCT-GLUCOSE [id number] 09:07:18 Test Item Value Reference Range Interpretation Comments POC-GLUCOSE METER 96 mg/dL 70-110 : TESTED A T [facility] 6720 (BEAKER) (test code = [place], 1538) [address]: Gas Engineer/Techni krystal ID = [id number] for Judson Johnson (CELLAVISION MANUAL DIFF)2023-08-13 08:06:09 Test Item Value Reference Range Interpretation Comments NEUTROPHILS - REL 85 % (CELLAVISION)(BEAKER) (test code = 2816) LYMPHOCYTES - REL 9 % (CELLAVISION)(BEAKER) (test code = 2817) MONOCYTES - REL 5 % (CELLAVISION)(BEAKER) (test code = 2818) BASOPHILS - REL 1 % (CELLAVISION)(BEAKER) (test code = 2820) NEUTROPHILS - ABS 16.15 K/ul 1.78-5.38 H (CELLAVISION)(BEAKER) (test code = 2830) LYMPHOCYTES - ABS 1.71 K/ul 1.32-3.57 (CELLAVISION)(BEAKER) (test code = 2831) MONOCYTES - ABS 0.95 K/uL 0.30-0.82 H (CELLAVISION)(BEAKER) (test code = 2832) BASOPHILS - ABS 0.19 K/uL 0.01-0.08 H (CELLAVISION)(BEAKER) (test code = 2835) TOTAL COUNTED (BEAKER) (test code 100 = 1351) PLT MORPHOLOGY (BEAKER) (test code Normal = 486) SMUDGE CELLS (BEAKER) (test code = Present 1371) BASOPHILIC STIPPLING (BEAKER) Present (test code = 473) ARTIFACT (CELLAVISION)(BEAKER) Present (test code = 3432) PLATELET CONCENTRATION Decreased (CELLAVISION)(BEAKER) (test code = 3438) Gas Engineer ID - [id number] ID - Hannah comments: Slide comments:CBC W/PLT COUNT & AUTO [id number] 08:05:55 Test Item Value Reference Range Interpretation Comments WHITE BLOOD CELL COUNT (BEAKER) 19.0 K/ L 3.5-10.5 H (test code = 775) RED BLOOD CELL COUNT (BEAKER) 1.96 M/ L 4.63-6.08 L (test code = 761) HEMOGLOBIN (BEAKER) (test code = 5.9 GM/DL 13.7-17.5 LL 410) HEMATOCRIT (BEAKER) (test code = 18.7 % 40.1-51.0 L 411) MEAN CORPUSCULAR VOLUME (BEAKER) 95 fL 79-92 H (test code = 753) MEAN CORPUSCULAR HEMOGLOBIN 30.1 pg 25.7-32.2 (BEAKER) (test code = 751) MEAN CORPUSCULAR HEMOGLOBIN CONC 31.6 GM/DL 32.3-36.5 L (BEAKER) (test code = 752) RED CELL DISTRIBUTION WIDTH 15.5 % 11.6-14.4 H (BEAKER) (test code = 412) PLATELET COUNT (BEAKER) (test 144 K/CU MM 150-450 L code = 756) MEAN PLATELET VOLUME (BEAKER) 11.4 fL 9.4-12.4 (test code = 754) NUCLEATED RED BLOOD CELLS 0 /100 WBC 0-0 (BEAKER) (test code = 413) XR CHEST 1 VIEW PORTABLE / [id number] 06:52:30 [facility] 1945 Sex: MEXAMINATION: XR CHEST 1 VIEW PORTABLE / BEDSIDE INDICATION: leukocytosis, infectious workupCOMPARISON: None FINDINGS:LINES/TUBES: The nasogastric tube tip overlies the proximal stomach. LUNGS: The lungs are wellinflated. No focal airspace consolidation.PLEURA: No pleural effusion or pneumothorax.MEDIASTINUM: The cardiomediastinal silhouette appears normal in size andshape.BONES/SOFT TISSUES: No acute osseous injury.ABDOMEN: No free air under the diaphragm.IMPRESSION:No focal pneumonia or airspace edema.Electronically Signed By: Ligia Cunningham08/13/2023 06:54 CDTWorkstation Name: [id number] METABOLIC PANEL 2023-08-13 06:24:55 Test Item Value Reference Range Interpretation Comments SODIUM (BEAKER) 145 meq/L 136-145 (test code = 381) POTASSIUM 4.1 meq/L 3.5-5.1 (BEAKER) (test code = 379) CHLORIDE (BEAKER) 117 meq/L 98-107 H (test code = 382) CO2 (BEAKER) 25 meq/L 22-29 (test code = 355) BLOOD UREA 41 mg/dL 7-21 H NITROGEN (BEAKER) (test code = 354) CREATININE 0.75 mg/dL 0.57-1.25 (BEAKER) (test code = 358) GLUCOSE RANDOM 106 mg/dL 70-105 H (BEAKER) (test code = 652) CALCIUM (BEAKER) 7.9 mg/dL 8.4-10.2 L (test code = 697) EGFR (BEAKER) 93 Interpretatio n of eGFR (test code = [...] not appl icable for dialysis patien ts Gas Engineer ID - [id number] 06:18:15 Test Item Value Reference Range Interpretation Comments MAGNESIUM (BEAKER) (test code = 2.1 mg/dL 1.6-2.6 627) Gas Engineer ID - EMLACTIC ACID, [id number] 06:05:50 Test Item Value Reference Range Interpretation Comments LACTATE BLOOD VENOUS (2) (BEAKER) 0.99 mmol/L 0.50-2.00 (test code = 2872) Gas Engineer ID - [id number] 06:03:29 Test Item Value Reference Range Interpretation Comments PARTIAL THROMBOPLASTIN TIME 29.0 seconds 22.5-36.0 (BEAKER) (test code = 760) PROTHROMBIN TIME/[id number] 06:02:49 Test Item Value Reference Range Interpretation Comments PROTIME (BEAKER) 17.1 seconds 11.9-14.2 H (test code = 759) INR (BEAKER) (test 1.48 See_Comment [Automat ed message] code = 370) The system SureFire generated this result transmitted ref erence range: <=5.90. The reference range was not used to int erpret this result as normal/abnormal . RECOMMENDED COUMADIN/WARFARIN INR THERAPY RANGESSTANDARD DOSE: 2.0 - 3.0 Includes: PROPHYLAXIS for venous thrombosis, systemic embolization; TREATMENT for venous thrombosis and/or pulmonary embolus.HIGH RISK: Target INR is 2.5-3.5 for patients with mechanical heart valves.POCT-GLUCOSE [id number] 01:36:17 Test Item Value Reference Range Interpretation Comments POC-GLUCOSE METER 102 mg/dL 70-110 : TESTED A T [facility] 6720 (BEAKER) (test code = [facility], 153) [address]: Gas Engineer/Techni krystal ID = [id number] for NOELLE MAYBERRY MS POCT-GLUCOSE [id number] 22:36:53 Test Item Value Reference Range Interpretation Comments POC-GLUCOSE METER 191 mg/dL 70-110 H : TESTED A T [facility] 6720 (BEAKER) (test code = [facility], 153) [address]: Gas Engineer/Techni krystal ID = [id number] for Love Orellana POCT-GLUCOSE [id number] 22:36:33 Test Item Value Reference Range Interpretation Comments POC-GLUCOSE METER 70 mg/dL 70-110 : TESTED A T [facility] 6720 (BEAKER) (test code = [facility], 153) [address]: Gas Engineer/Techni krystal ID = [id number] for Cristina an, Annabelle CBC W/PLT COUNT & AUTO [id number] 18:35:18 Test Item Value Reference Range Interpretation Comments WHITE BLOOD CELL COUNT (BEAKER) 14.4 K/ L 3.5-10.5 H (test code = 775) RED BLOOD CELL COUNT (BEAKER) 2.68 M/ L 4.63-6.08 L (test code = 761) HEMOGLOBIN (BEAKER) (test code = 7.9 GM/DL 13.7-17.5 L 410) HEMATOCRIT (BEAKER) (test code = 25.7 % 40.1-51.0 L 411) MEAN CORPUSCULAR VOLUME (BEAKER) 96 fL 79-92 H (test code = 753) MEAN CORPUSCULAR HEMOGLOBIN 29.5 pg 25.7-32.2 (BEAKER) (test code = 751) MEAN CORPUSCULAR HEMOGLOBIN CONC 30.7 GM/DL 32.3-36.5 L (BEAKER) (test code = 752) RED CELL DISTRIBUTION WIDTH 15.4 % 11.6-14.4 H (BEAKER) (test code = 412) PLATELET COUNT (BEAKER) (test 175 K/CU MM 150-450 code = 756) MEAN PLATELET VOLUME (BEAKER) 10.8 fL 9.4-12.4 (test code = 754) NUCLEATED RED BLOOD CELLS 0 /100 WBC 0-0 (BEAKER) (test code = 413) NEUTROPHILS RELATIVE PERCENT 89 % (BEAKER) (test code = 429) LYMPHOCYTES RELATIVE PERCENT 9 % (BEAKER) (test code = 430) MONOCYTES RELATIVE PERCENT 1 % (BEAKER) (test code = 431) EOSINOPHILS RELATIVE PERCENT 0 % (BEAKER) (test code = 432) BASOPHILS RELATIVE PERCENT 0 % (BEAKER) (test code = 437) NEUTROPHILS ABSOLUTE COUNT 12.84 K/ L 1.78-5.38 H (BEAKER) (test code = 670) LYMPHOCYTES ABSOLUTE COUNT 1.23 K/ L 1.32-3.57 L (BEAKER) (test code = 414) MONOCYTES ABSOLUTE COUNT (BEAKER) 0.14 K/ L 0.30-0.82 L (test code = 415) EOSINOPHILS ABSOLUTE COUNT 0.00 K/ L 0.04-0.54 L (BEAKER) (test code = 416) BASOPHILS ABSOLUTE COUNT (BEAKER) 0.04 K/ L 0.01-0.08 (test code = 417) IMMATURE GRANULOCYTES-RELATIVE 0.70 % 0.00-1.00 PERCENT (BEAKER) (test code = 2801) LACTIC ACID, [id number] 18:19:48 Test Item Value Reference Range Interpretation Comments LACTATE BLOOD VENOUS (2) (BEAKER) 2.92 mmol/L 0.50-2.00 H (test code = 2703) Gas Engineer ID - MMCTA AAA AND [id number] 16:00:54 [facility] : 1945 Sex: MEXAM: CTAABDOMEN AND PELVIS WITH CONTRASTEXAM: CTA LOWER EXTREMITIES WITH CONTRASTDATE: 08/12/2023 11:40 AM INDICATION: 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 A xial,coronal and sagittal images, including MIPS, are provided.FINDINGS:Bridge/Structure Inspection Team Leader: Noncontributory.VASCULAR:Aorta: No aneurysm, dissection, penetrating ulcer, or ruptureidentified. No evidence of aortoenteric fistula. Measurements are as follows:Descending aorta at the hiatus: 3.1 cmAbdominal aorta at thelevel of the renal arteries: 2.3 cmAbdominal aorta prior to the bifurcation: 2.2 cmAbdominal arterial anatomy:Celiac artery, SMA and SID: Patent.Hepatic arteries: Conventional.Renal arteries: PatentRight run-off:Common iliac artery: Interval resolution of previously noted aneurysm.The [place] right common iliac artery is completely excluded andthrombosis.External iliac artery: Patent.Internal iliac artery: Thrombosed.Common femoral artery: Status post repair of previously notedpseudoaneurysm.Superficial femoral artery: Evaluation limited due to poor contrastbolus timing. Multifocal areas of high-grade stenosis.Profunda femoris artery: Patent.Popliteal artery: Patent.Tibia peroneal trunk: Patent.Anterior tibial artery: Patent.Posterior tibial artery: Patent.Peroneal artery: Patent.Dorsalis pedis artery: Patent.Evaluation of the mid and distal lower extremity is limited due to poorcontrast bolus timing. The proximal lower extremity vessels are patentLeft run-off:Common iliac artery: PatentExternal iliac artery: Patent.Internal iliac artery: Thrombosed.Common femoral artery: Patent.Superficial femoral artery: Evaluation limited due to poor contrastbolus timing. Multifocal areas of high-grade stenosis.Profunda femoris artery: Patent.Popliteal artery: Patent.Tibia peroneal trunk: Patent.Anterior tibial artery: Patent.Posterior tibial artery: Patent.Peroneal artery: Patent.Dorsalis pedis artery: Patent.Evaluation of the mid and distal lower extremity is limited due to poorcontrast bolus timing. The proximal lower extremity vessels are patentSVC, IVC and veins: Normal.Portal and mesenteric vasculature: Normal. MPV: PatentNONVASCULAR:Lines, tubes and hardware: None.Lower thorax: Clear.Liver: Decreased attenuation in keeping with steatosis.Biliary tree: No intra- or extrahepatic bile duct dilation.Gallbladder: Gallstone identified. No inflammation.Pancreas: Normal.Spleen: Stable splenic parenchymal hypodensity measuring 1.6 x 1.1 cm.Adrenals: Normal.Kidneys and ureters: Scattered bilateral renal hypodensities mostconsistent with simple cysts, unchanged from prior study. No evidence ofhydronephrosis or nephrolithiasis..Bladder: Normal.Reproductive organs: UnremarkableGastrointestinal tract:Lower esophagus: Normal.Stomach: Normal.Small bowel: Normal.Colon: Normal.Appendix: Normal.Peritoneum, mesentery and retroperitoneum: No free air, ascites orloculated fluid.Lymph nodes: Normal.Bones: No acute abnormality.Soft tissues: Normal.IMPRESSION:1. No evidence for gastrointestinal hemorrhage or aortoenteric fistula.2. Patent aortobifemoral bypass. Status post surgical repair of rightcommon femoralpseudoaneurysm.3. Multifocal high-grade stenosis of bilateral superficial femoralarteries. Likely three vessel runoff bilaterally, although evaluationlimited due to poor contrast bolus timing. There issymmetric loss ofopacification of distal bilateral lower extremities.4. Cholelithiasis without CT evidence of acute cholecystitis.Electronically Signed By: Selwyn Morelos08/12/2023 16:02 CDTWorkstation Name: [id number] ABDOMEN/KUB 1 VIEW [id number] 14:36:02 [facility] : 1945 Sex: MAbdomen x- rayClinical Diagnosis: Status post NG tube placementComparison: 07/22/2023Views: Supine view of the abdomen obtainedFINDINGS/IMPRESSION:Nasogastric tube noted coursing below the abdomen with distal tipturning within left upper quadrant expected region of the stomach.Visualized bowel gas pattern is nonobstructive. No pathologicallydilated loops of bowel are identified. No intraperitoneal free air isappreciated on this supine view examination.Excreted contrast material noted within the urinary bladder.Dextroscoliosis and degenerative changes noted of the visualized spine.No acute osseous abnormality is identified.Electronically Signed By: Paulino Peters MD08/12/2023 14:38 CDTWorkstation Name: [id number] 13:53:32 Test Item Value Reference Range Interpretation Comments FIBRINOGEN LEVEL (BEAKER) (test 183 mg/dl 225-434 L code = 658) POCT-GLUCOSE [id number] 13:02:50 Test Item Value Reference Range Interpretation Comments POC-GLUCOSE METER 124 mg/dL 70-110 H : TESTED A T [facility] 6720 (BEAKER) (test code = [place], 1538) [id number]: Gas Engineer/Techni krystal ID = [id number] for Br Love baird URINALYSIS W/ REFLEX URINE [id number] 12:54:06 Test Item Value Reference Range Interpretation Comments COLOR (BEAKER) (test code = 470) Light Yellow CLARITY (BEAKER) (test code = Cloudy 469) SPECIFIC GRAVITY UA (BEAKER) 1.035 1.001-1.035 (test code = 468) PH UA (BEAKER) (test code = 467) 5.5 5.0-8.0 PROTEIN UA (BEAKER) (test code = 20 mg/dL Negative A 464) GLUCOSE UA (BEAKER) (test code = Negative Negative 365) KETONES UA (BEAKER) (test code = Negative Negative 371) BILIRUBIN UA (BEAKER) (test code Negative Negative = 462) BLOOD UA (BEAKER) (test code = Moderate Negative A 461) NITRITE UA (BEAKER) (test code = Negative Negative 465) LEUKOCYTE ESTERASE UA (BEAKER) Large Negative A (test code = 466) UROBILINOGEN UA (BEAKER) (test 0.2 0.2-1.0 code = 463) RBC UA (BEAKER) (test code = 125 /HPF 519) WBC UA (BEAKER) (test code = 77 /HPF 520) BACTERIA (BEAKER) (test code = Rare 517) MUCUS (BEAKER) (test code = Rare 1574) HYALINE CASTS (BEAKER) (test 1 /LPF code = 514) SOURCE(BEAKER) (test code = 2795) Gas Engineer ID - [auto]Gas Engineer ID - techLACTIC ACID, [id number] 09:47:00 Test Item Value Reference Range Interpretation Comments LACTATE BLOOD VENOUS 2.45 mmol/L 0.50-2.00 H Specime n moderately (2) (BEAKER) (test hemolyzed code = 2872) Gas Engineer ID - MARCOCBC W/PLT COUNT & AUTO [id number] 09:44:19 Test Item Value Reference Range Interpretation Comments WHITE BLOOD CELL COUNT (BEAKER) 16.4 K/ L 3.5-10.5 H (test code = 775) RED BLOOD CELL COUNT (BEAKER) 2.71 M/ L 4.63-6.08 L (test code = 761) HEMOGLOBIN (BEAKER) (test code = 8.2 GM/DL 13.7-17.5 L 410) HEMATOCRIT (BEAKER) (test code = 25.9 % 40.1-51.0 L 411) MEAN CORPUSCULAR VOLUME (BEAKER) 96 fL 79-92 H (test code = 753) MEAN CORPUSCULAR HEMOGLOBIN 30.3 pg 25.7-32.2 (BEAKER) (test code = 751) MEAN CORPUSCULAR HEMOGLOBIN CONC 31.7 GM/DL 32.3-36.5 L (BEAKER) (test code = 752) RED CELL DISTRIBUTION WIDTH 15.1 % 11.6-14.4 H (BEAKER) (test code = 412) PLATELET COUNT (BEAKER) (test 186 K/CU MM 150-450 code = 756) MEAN PLATELET VOLUME (BEAKER) 10.9 fL 9.4-12.4 (test code = 754) NUCLEATED RED BLOOD CELLS 0 /100 WBC 0-0 (BEAKER) (test code = 413) NEUTROPHILS RELATIVE PERCENT 70 % (BEAKER) (test code = 429) LYMPHOCYTES RELATIVE PERCENT 19 % (BEAKER) (test code = 430) MONOCYTES RELATIVE PERCENT 9 % (BEAKER) (test code = 431) EOSINOPHILS RELATIVE PERCENT 1 % (BEAKER) (test code = 432) BASOPHILS RELATIVE PERCENT 1 % (BEAKER) (test code = 437) NEUTROPHILS ABSOLUTE COUNT 11.51 K/ L 1.78-5.38 H (BEAKER) (test code = 670) LYMPHOCYTES ABSOLUTE COUNT 3.11 K/ L 1.32-3.57 (BEAKER) (test code = 414) MONOCYTES ABSOLUTE COUNT (BEAKER) 1.50 K/ L 0.30-0.82 H (test code = 415) EOSINOPHILS ABSOLUTE COUNT 0.10 K/ L 0.04-0.54 (BEAKER) (test code = 416) BASOPHILS ABSOLUTE COUNT (BEAKER) 0.12 K/ L 0.01-0.08 H (test code = 417) IMMATURE GRANULOCYTES-RELATIVE 0.60 % 0.00-1.00 PERCENT (BEAKER) (test code = 2801) BLOOD GAS, [id number] 09:39:37 Test Item Value Reference Range Interpretation Comments PH VENOUS (BEAKER) (test code = 7.31 7.32-7.42 L 701) PCO2 VENOUS (BEAKER) (test code = 46 mm Hg 41-51 755) PO2 VENOUS (BEAKER) (test code = 24 mm Hg 25-40 L 702) O2 SATURATION VENOUS (BEAKER) 38.2 % 40.0-70.0 L (test code = 703) HCO3 VENOUS (BEAKER) (test code = 23 mmol/L 21-29 705) BASE EXCESS VENOUS (BEAKER) (test -3.4 mmol/L -2.0-3.0 L code = 704) PATIENT TEMPERATURE (BEAKER) 36.7 (test code = 1818) FIO2 (BEAKER) (test code = 1819) 21.0 COMPREHENSIVE METABOLIC [id number] 02:11:51 Test Item Value Reference Range Interpretation Comments TOTAL PROTEIN 5.2 gm/dL 6.0-8.3 L (BEAKER) (test code = 770) ALBUMIN (BEAKER) 3.0 g/dL 3.5-5.0 L (test code = 1145) ALKALINE 67 U/L 40-150 PHOSPHATASE (BEAKER) (test code = 346) BILIRUBIN TOTAL 0.3 mg/dL 0.2-1.2 (BEAKER) (test code = 377) SODIUM (BEAKER) 141 meq/L 136-145 (test code = 381) POTASSIUM (BEAKER) 4.1 meq/L 3.5-5.1 (test code = 379) CHLORIDE (BEAKER) 112 meq/L 98-107 H (test code = 382) CO2 (BEAKER) (test 20 meq/L 22-29 L code = 355) BLOOD UREA 57 mg/dL 7-21 H NITROGEN (BEAKER) (test code = 354) CREATININE 0.92 mg/dL 0.57-1.25 (BEAKER) (test code = 358) GLUCOSE RANDOM 178 mg/dL 70-105 H (BEAKER) (test code = 652) CALCIUM (BEAKER) 8.1 mg/dL 8.4-10.2 L (test code = 697) AST (SGOT) 20 U/L 5-34 (BEAKER) (test code = 353) ALT (SGPT) 18 U/L 6-55 (BEAKER) (test code = 347) EGFR (BEAKER) 87 Interpretatio n of eGFR (test code = 1092) mL/min/1.[address] age Description sq m Result G1 Haleigh l or high >=90 G2 Mildly decreased 60-89 G3a Mildl y to moderately 45-5 9 G3b Moderately to s everely 30-44 G4 Severl y decreased 15-29 G5 Kidne y failure <15Reported eGF R is based on the CKD-EPI 2020 equation that d oes not use a race coefficientEsti mated GFR is not as accur ate as Creatinine Cristina jeanine in predicting glom erular filtration rate . Estimated GFR is not appl icable for dialysis patien ts Gas Engineer ID - [id number] 02:09:33 Test Item Value Reference Range Interpretation Comments PARTIAL THROMBOPLASTIN TIME 30.9 seconds 22.5-36.0 (BEAKER) (test code = 760) PROTHROMBIN TIME/[id number] 02:08:48 Test Item Value Reference Range Interpretation Comments PROTIME (BEAKER) 16.5 seconds 11.9-14.2 H (test code = 759) INR (BEAKER) (test 1.42 See_Comment [Automat ed message] code = 370) The system SureFire generated this result transmitted ref erence range: <=5.90. The reference range was not used to int erpret this result as normal/abnormal . RECOMMENDED COUMADIN/WARFARIN INR THERAPY RANGESSTANDARD DOSE: 2.0 - 3.0 Includes: PROPHYLAXIS for venous thrombosis, systemic embolization; TREATMENT for venous thrombosis and/or pulmonary embolus.HIGH RISK: Target INR is 2.5-3.5 for patients with mechanical heart valves.LACTIC ACID, [id number] 02:07:31 Test Item Value Reference Range Interpretation Comments LACTATE BLOOD VENOUS (2) (BEAKER) 0.84 mmol/L 0.50-2.00 (test code = 2872) Gas Engineer ID - ADMINCBC W/PLT COUNT & AUTO [id number] 02:03:55 Test Item Value Reference Range Interpretation Comments WHITE BLOOD CELL COUNT (BEAKER) 16.2 K/ L 3.5-10.5 H (test code = 775) RED BLOOD CELL COUNT (BEAKER) 2.42 M/ L 4.63-6.08 L (test code = 761) HEMOGLOBIN (BEAKER) (test code = 7.4 GM/DL 13.7-17.5 L 410) HEMATOCRIT (BEAKER) (test code = 23.5 % 40.1-51.0 L 411) MEAN CORPUSCULAR VOLUME (BEAKER) 97 fL 79-92 H (test code = 753) MEAN CORPUSCULAR HEMOGLOBIN 30.6 pg 25.7-32.2 (BEAKER) (test code = 751) MEAN CORPUSCULAR HEMOGLOBIN CONC 31.5 GM/DL 32.3-36.5 L (BEAKER) (test code = 752) RED CELL DISTRIBUTION WIDTH 14.0 % 11.6-14.4 (BEAKER) (test code = 412) PLATELET COUNT (BEAKER) (test 181 K/CU MM 150-450 code = 756) MEAN PLATELET VOLUME (BEAKER) 10.7 fL 9.4-12.4 (test code = 754) NUCLEATED RED BLOOD CELLS 0 /100 WBC 0-0 (BEAKER) (test code = 413) NEUTROPHILS RELATIVE PERCENT 78 % (BEAKER) (test code = 429) LYMPHOCYTES RELATIVE PERCENT 12 % (BEAKER) (test code = 430) MONOCYTES RELATIVE PERCENT 8 % (BEAKER) (test code = 431) EOSINOPHILS RELATIVE PERCENT 0 % (BEAKER) (test code = 432) BASOPHILS RELATIVE PERCENT 1 % (BEAKER) (test code = 437) NEUTROPHILS ABSOLUTE COUNT 12.68 K/ L 1.78-5.38 H (BEAKER) (test code = 670) LYMPHOCYTES ABSOLUTE COUNT 2.00 K/ L 1.32-3.57 (BEAKER) (test code = 414) MONOCYTES ABSOLUTE COUNT (BEAKER) 1.28 K/ L 0.30-0.82 H (test code = 415) EOSINOPHILS ABSOLUTE COUNT 0.05 K/ L 0.04-0.54 (BEAKER) (test code = 416) BASOPHILS ABSOLUTE COUNT (BEAKER) 0.11 K/ L 0.01-0.08 H (test code = 417) IMMATURE GRANULOCYTES-RELATIVE 0.70 % 0.00-1.00 PERCENT (BEAKER) (test code = 2801) POC-Glucose [id number] 13:13:05 Test Item Value Reference Range Interpretation Comments POC-Glucose Meter (test 127 mg/dL 70-110 H : TE STED AT [facility] code = 1538) [address] [facility] [place], [address]: Gas Engineer/Techni krystal ID = [id number] for CHASEJohnKELSEY ANTHONY Lab Interpretation (test Abnormal code = 72869-1) [facility] [id number] 13:13:05 Test Item Value Reference Range Interpretation Comments POC-Glucose Meter (test 127 mg/dL 70-110 H : TE STED AT [facility] code = 1538) [address] [facility], [address]: Gas Engineer/Techni krystal ID = [id number] for KELSEY BRUNSON A Lab Interpretation (test Abnormal code = 40260-0) [facility] [id number] 13:13:05 Test Item Value Reference Range Interpretation Comments POC-Glucose Meter (test 127 mg/dL 70-110 H : TE STED AT [facility] code = 1538) [address] [facility], [address]: Gas Engineer/Techni krystal ID = [id number] for KELSEY BRUNSON A Lab Interpretation (test Abnormal code = 35077-1) [facility] [id number] 13:13:05 Test Item Value Reference Range Interpretation Comments POC-GLUCOSE METER 127 mg/dL 70-110 H : TESTED A T [facility] [address] (BEAKER) (test code = [facility], 1538) [address]: Gas Engineer/Techni krystal ID = [id number] for EVELIA PENDLETON POCT-GLUCOSE [id number] 08:33:19 Test Item Value Reference Range Interpretation Comments POC-GLUCOSE METER 134 mg/dL 70-110 H : TESTED A T [facility] [address] (BEAKER) (test code = [facility], 1538) [address]: Gas Engineer/Techni krystal ID = [id number] for EVELIA PENDLETON (CELLAVISION MANUAL DIFF)2023-07-23 07:06:44 Test Item Value [...] CONCENTRATION Adequate (CELLAVISION)(BEAKER) (test code = 3438) Gas Engineer ID - Christy Carrillo comments: Slide comments:CBC W/PLT COUNT & AUTO [id number] 07:06:43 Test Item Value Reference Range Interpretation [...] WBC 0-0 (BEAKER) (test code = 413) [id number] 06:14:48 Test Item Value Reference Range Interpretation Comments PHOSPHORUS (BEAKER) (test code = 2.9 mg/dL 2.3-4.7 604) Gas Engineer ID - ADMINBASIC METABOLIC [id number] 06:14:47 Test Item Value Reference Range Interpretation [...] eGFR (test code = mL/min/1.73 values Stage D escription 1092) sq m Result G1 Haleigh l or high >=90 G2 Mildly decreased 60-89 G3a Mildl y to moderately 45-5 9 G3b Moderately to s everely 30-44 G4 Severl y decreased 15-29 G5 Kidney failure <15Reported eGF R is based on the CKD-EPI 202 equation that d oes not use a race coefficientEsti mated GFR is not as accur ate as Creatinine Cristina jeanine in predicting glom erular filtration rate . Estimated GFR is not appl icable for dialysis patien ts Gas Engineer ID - [id number] 06:14:47 Test Item Value Reference Range Interpretation Comments MAGNESIUM (BEAKER) (test code = 2.0 mg/dL 1.6-2.6 627) Gas Engineer ID - ADMINPOCT-GLUCOSE [id number] 21:11:07 Test Item Value Reference Range Interpretation Comments POC-GLUCOSE METER 189 mg/dL 70-110 H : TESTED A T [facility] 6720 (BEAKER) (test code = [facility], 1538) 45039: Gas Engineer/Techni krystal ID = [id number] for MCKAYLA SANTOS POCT-GLUCOSE [id number] 16:53:06 Test Item Value Reference Range Interpretation Comments POC-GLUCOSE METER 133 mg/dL 70-110 H : TESTED A T [facility] 6720 (BEAKER) (test code = [facility], 1538) 19451: Gas Engineer/Techni krystal ID = [id number] for [place] LLIAMS, TYNEKA POCT-GLUCOSE [id number] 13:01:10 Test Item Value Reference Range Interpretation Comments POC-GLUCOSE METER 138 mg/dL 70-110 H : TESTED A T [facility] 6720 (BEAKER) (test code = [facility], 1538) 08901: Gas Engineer/Techni krystal ID = [id number] for [place] LLIAMS, TYNEKA XR ABDOMEN/KUB 1 VIEW [id number] 10:03:55 [facility] : 1945 Sex: MEXAMINATION: [...] Signed By: Ligia Cunningham07/22/2023 10:05 CDTWorkstation Name: [id number] 07:26:43 Test Item Value Reference Range Interpretation Comments POC-GLUCOSE METER 124 mg/dL 70-110 H : TESTED A T [facility] 6720 (BEAKER) (test code = [place], 1538) 12765: Gas Engineer/Techni krystal ID = [id number] for YANELI MOCKDAWNBHAVIKATILIO (CELLAVISION MANUAL DIFF)2023-07-22 05:58:39 Test Item Value [...] CONCENTRATION Adequate (CELLAVISION)(BEAKER) (test code = 3438) Gas Engineer ID - Devorah Rodriguez comments: Slide comments:CBC W/PLT COUNT & AUTO [id number] 05:58:38 Test Item Value Reference Range Interpretation [...] (BEAKER) (test code = 413) BASIC METABOLIC [id number] 05:38:58 Test Item Value Reference Range Interpretation [...] not appl icable for dialysis patien ts Gas Engineer ID - [id number] 05:38:58 Test Item Value Reference Range Interpretation Comments MAGNESIUM (BEAKER) (test code = 1.9 mg/dL 1.6-2.6 627) Gas Engineer ID - [id number] 05:38:58 Test Item Value Reference Range Interpretation Comments PHOSPHORUS (BEAKER) (test code = 3.0 mg/dL 2.3-4.7 604) Gas Engineer ID - ADMINPOCT-GLUCOSE [id number] 21:03:38 Test Item Value Reference Range Interpretation Comments POC-GLUCOSE METER 180 mg/dL 70-110 H : TESTED A T [facility] 6720 (BEAKER) (test code = [facility], 1537) 11596: Gas Engineer/Techni krystal ID = [id number] for Divina Martin POCT-GLUCOSE [id number] 17:11:12 Test Item Value Reference Range Interpretation Comments POC-GLUCOSE METER 154 mg/dL 70-110 H : TESTED A T [facility] 6720 (BEAKER) (test code = [facility], 153) 17417: Gas Engineer/Techni krystal ID = [id number] for Fr clayton Kamla POCT-GLUCOSE [id number] 11:12:22 Test Item Value Reference Range Interpretation Comments POC-GLUCOSE METER 197 mg/dL 70-110 H : TESTED A T [facility] 6720 (BEAKER) (test code = [place], 1538) 09898: Gas Engineer/Techni krystal ID = [id number] for Kamla Manzano POCT-GLUCOSE [id number] 09:06:28 Test Item Value Reference Range Interpretation Comments POC-GLUCOSE METER 128 mg/dL 70-110 H : TESTED A T [facility] 6720 (BEAKER) (test code = [facility] [employer], 1538) 66760: Gas Engineer/Techni krystal ID = [id number] for Kamla Manzano (CELLAVISION MANUAL DIFF)2023-07-21 05:40:55 [...] CONCENTRATION Adequate (CELLAVISION)(BEAKER) (test code = 3438) Gas Engineer ID - Devorah Rodriguez comments: Slide comments:CBC W/PLT COUNT & AUTO [id number] 05:40:54 Test Item Value Reference Range Interpretation [...] (BEAKER) (test code = 413) BASIC METABOLIC [id number] 05:39:10 Test Item Value Reference Range Interpretation [...] not appl icable for dialysis patien ts Gas Engineer ID - [id number] 05:39:10 Test Item Value Reference Range Interpretation Comments MAGNESIUM (BEAKER) (test code = 2.0 mg/dL 1.6-2.6 627) Gas Engineer ID - [id number] 05:39:10 Test Item Value Reference Range Interpretation Comments PHOSPHORUS (BEAKER) (test code = 3.0 mg/dL 2.3-4.7 604) Gas Engineer ID - LINDAOPOCT-GLUCOSE [id number] 21:52:31 Test Item Value Reference Range Interpretation Comments POC-GLUCOSE METER 159 mg/dL 70-110 H : TESTED A T [facility] 6720 (BEAKER) (test code = [facility] [employer], 153) 44022: Gas Engineer/Techni krystal ID = [id number] for Divina Martin POCT-GLUCOSE [id number] 18:13:00 Test Item Value Reference Range Interpretation Comments POC-GLUCOSE METER 134 mg/dL 70-110 H : TESTED A T [facility] 6720 (BEAKER) (test code = [facility] [employer], 153) 45683: Gas Engineer/Techni krystal ID = [id number] for Torri Mack HEMOGLOBIN [id number] 11:18:47 Test Item Value Reference Range Interpretation [...] 5.7- 6.4% indicates increased risk for diabetes (prediabetes)."Gas Engineer ID - ADM (CELLAVISION MANUAL DIFF)2023-07-20 06:20:08 [...] CONCENTRATION Adequate (CELLAVISION)(BEAKER) (test code = 3438) Gas Engineer ID - Hannah comments: Slide comments:CBC W/PLT COUNT & AUTO [id number] 06:20:07 Test Item Value Reference Range Interpretation [...] WBC 0-0 (BEAKER) (test code = 413) [id number] 05:57:30 Test Item Value Reference Range Interpretation Comments PHOSPHORUS (BEAKER) (test code = 2.7 mg/dL 2.3-4.7 604) Gas Engineer ID - ADMINBASIC METABOLIC [id number] 05:57:29 Test Item Value Reference Range Interpretation [...] not appl icable for dialysis patien ts Gas Engineer ID - [id number] 05:57:29 Test Item Value Reference Range Interpretation Comments MAGNESIUM (BEAKER) (test code = 2.0 mg/dL 1.6-2.6 627) Gas Engineer ID - ADMINHEMOGLOBIN AND [id number] 18:25:24 Test Item Value Reference Range Interpretation Comments HEMOGLOBIN (BEAKER) (test code = 8.9 GM/DL 13.7-17.5 L 410) HEMATOCRIT (BEAKER) (test code = 26.6 % 40.1-51.0 L 411) Gas Engineer ID - 6000POCT-GLUCOSE [id number] 16:50:31 Test Item Value Reference Range Interpretation Comments POC-GLUCOSE METER 160 mg/dL 70-110 H : TESTED A T [facility] 6720 (BEAKER) (test code = [place], 1538) 92829: Gas Engineer/Techni krystal ID = [id number] for NW JUANU EVELIA (CELLAVISION MANUAL DIFF)2023 05:24:50 Test Item Value [...] CONCENTRATION Adequate (CELLAVISION)(BEAKER) (test code = 3438) Gas Engineer ID - Devorah Rodriguez comments: Slide comments:CBC W/PLT COUNT & AUTO [id number] 05:24:49 Test Item Value Reference Range Interpretation [...] 0-0 (BEAKER) (test code = 413) POCT-GLUCOSE [id number] 05:02:41 Test Item Value Reference Range Interpretation Comments POC-GLUCOSE METER 131 mg/dL 70-110 H : TESTED A T [facility] 6720 (BEAKER) (test code = [place], 1538) 81322: Gas Engineer/Techni krystal ID = [id number] for ROBERT DALAL [id number] 04:18:57 Test Item Value Reference Range Interpretation Comments MAGNESIUM (BEAKER) (test code = 2.1 mg/dL 1.6-2.6 627) Gas Engineer ID - [id number] 04:18:57 Test Item Value Reference Range Interpretation Comments PHOSPHORUS (BEAKER) (test code = 1.9 mg/dL 2.3-4.7 L 604) Gas Engineer ID - mmBASIC METABOLIC [id number] 04:18:56 Test Item Value Reference Range Interpretation Comments SODIUM (BEAKER) 141 meq/L 136-145 (test code = 381) POTASSIUM 3.5 meq/L 3.5-5.1 (BEAKER) (test code = 379) CHLORIDE (BEAKER) 107 meq/L 98-107 (test code = 382) CO2 (BEAKER) 28 meq/L 22-29 (test code = 355) BLOOD UREA 20 mg/dL 7-21 NITROGEN (AKER) (test code = 354) CREATININE 0.61 mg/dL 0.57-1.25 (BEAKER) (test code = 358) GLUCOSE RANDOM 117 mg/dL 70-105 H ([facility]) (test code = 652) CALCIUM ([facility]) 8.4 mg/dL 8.4-10.2 (test code = 697) EGFR ([facility]) 98 Interpretatio n of eGFR (test code [...] not appl icable for dialysis patien ts Gas Engineer ID - mmPOCT-GLUCOSE [id number] 21:21:42 Test Item Value Reference Range Interpretation Comments POC-GLUCOSE METER 183 mg/dL 70-110 H : TESTED A T [facility] 6720 ([facility]) (test code = [facility], 153) 26461: Gas Engineer/Techni krystal ID = [id number] for [place]O, ADACHI POCT-GLUCOSE [id number] 16:53:13 Test Item Value Reference Range Interpretation Comments POC-GLUCOSE METER 134 mg/dL 70-110 H : TESTED A T [facility] 6720 ([facility]) (test code = [facility], 153) 01952: Gas Engineer/Techni krystal ID = [id number] for Vi shruthi, Leila POCT-GLUCOSE [id number] 11:18:08 Test Item Value Reference Range Interpretation Comments POC-GLUCOSE METER 175 mg/dL 70-110 H : TESTED A T [facility] 6720 ([facility]) (test code = [facility], 153) 85584: Gas Engineer/Techni krystal ID = [id number] for Bu i, Keysha POCT-GLUCOSE [id number] 08:29:56 Test Item Value Reference Range Interpretation Comments POC-GLUCOSE METER 199 mg/dL 70-110 H : TESTED A T [facility] 6720 (BEAKER) (test code = [place], 1538) 99161: Gas Engineer/Techni krystal ID = [id number] for Keysha Velazquez i (CELLAVISION MANUAL DIFF)2023-07-18 05:04:38 Test Item Value [...] CONCENTRATION Adequate (CELLAVISION)(BEAKER) (test code = 3438) Gas Engineer ID - DannFranciatato comments: Slide comments:CBC W/PLT COUNT & AUTO [id number] 05:04:37 Test Item Value Reference Range Interpretation [...] (BEAKER) (test code = 413) BASIC METABOLIC [id number] 03:15:19 Test Item Value Reference Range Interpretation [...] not appl icable for dialysis patien ts Gas Engineer ID - [id number] 03:15:19 Test Item Value Reference Range Interpretation Comments MAGNESIUM (BEAKER) (test code = 2.0 mg/dL 1.6-2.6 627) Gas Engineer ID - [id number] 03:15:19 Test Item Value Reference Range Interpretation Comments PHOSPHORUS (BEAKER) (test code = 1.8 mg/dL 2.3-4.7 L 604) Gas Engineer ID - ADMINPOCT-GLUCOSE [id number] 21:10:21 Test Item Value Reference Range Interpretation Comments POC-GLUCOSE METER 122 mg/dL 70-110 H : TESTED A T [facility] 6720 (BEAKER) (test code = [facility], 1538) 25738: Gas Engineer/Techni krystal ID = [id number] for Giancarlo Gay [id number] 17:12:05 Test Item Value Reference Range Interpretation Comments PREALBUMIN (BEAKER) (test code = 20 mg/dL 14-45 586) Gas Engineer ID - BSPOCT-GLUCOSE [id number] 16:44:07 Test Item Value Reference Range Interpretation Comments POC-GLUCOSE METER 160 mg/dL 70-110 H : TESTED A T [facility] 6720 (BEAKER) (test code = [facility], 1538) 85238: Gas Engineer/Techni krystal ID = [id number] for SUNNY SANCHEZ [id number] 13:39:33 Test Item Value Reference Range Interpretation Comments ALBUMIN (BEAKER) 3.3 g/dL 3.5-5.0 L Specimen mo derately (test code = 1145) hemolyzed Gas Engineer ID - EMPOCT-GLUCOSE [id number] 12:15:06 Test Item Value Reference Range Interpretation Comments POC-GLUCOSE METER 147 mg/dL 70-110 H : TESTED A T [place] [address] (BEAKER) (test code = [facility], 1538) 70849: Gas Engineer/Techni krystal ID = [id number] for SUNNY SANCHEZ POC ACTIVATED CLOTTING [id number] 06:34:26 Test Item Value Reference Range Interpretation Comments Activated Clotting Time 131 sec : 74 -137 seconds, (test code = 3184-9) Baselin e: TESTED AT [address], [address]: Gas Engineer/Techni krystal ID = [id number] for GA TOBY, KATINA [facility] ACTIVATED CLOTTING [id number] 06:34:26 Test Item Value Reference Range Interpretation Comments Activated Clotting Time 131 sec : 74 -137 seconds, (test code = 3184-9) Baselin e: TESTED AT [address], 770 [address]: Gas Engineer/Techni krystal ID = [id number] for GA TOBY, KATINA [facility] ACTIVATED CLOTTING [id number] 06:34:26 Test Item Value Reference Range Interpretation Comments Activated Clotting Time 131 sec : 74 -137 seconds, (test code = 3184-9) Baselin e: TESTED AT [address], 770 30: Gas Engineer/Techni krystal ID = [id number] for GA TOBY, KATINA [facility][id number] 06:34:26 Test Item Value Reference Range Interpretation Comments ACTIVATED CLOTTING TIME 131 sec : 74 -137 seconds, (BEAKER) (test code = Camilla ne: TESTED AT 441) [address], 770 30: Gas Engineer/Techni krystal ID = [id number] for GA TOBY, KATINA [id number] 06:34:02 Test Item Value Reference Range Interpretation Comments ACTIVATED CLOTTING TIME 377 sec : 74 -137 seconds, (BEAKER) (test code = Camilla ne: TESTED AT 441) [address], 770 30: Gas Engineer/Techni krystal ID = [id number] for GA TOBY, KATINA [id number] 06:34:00 Test Item Value Reference Range Interpretation Comments ACTIVATED CLOTTING TIME 245 sec : 74 -137 seconds, (BEAKER) (test code = Baseli ne: TESTED AT 441) [facility] 6720 [facility], 770 30: Gas Engineer/Techni krystal ID = [id number] for KATINA CELESTE [id number] 06:34:00 Test Item Value Reference Range Interpretation Comments ACTIVATED CLOTTING TIME 269 sec : 74 -137 seconds, (BEAKER) (test code = Camilla ne: TESTED AT 441) [facility] 6720 [facility], 770 30: Gas Engineer/Techni krystal ID = [id number] for Laura Cameron (CELLAVISION MANUAL DIFF)2023-07-17 06:20:52 Test Item Value [...] CONCENTRATION Adequate (CELLAVISION)(BEAKER) (test code = 3438) Gas Engineer ID - Hannah comments: Slide comments:CBC W/PLT COUNT & AUTO [id number] 06:20:51 Test Item Value Reference Range Interpretation [...] WBC 0-0 (BEAKER) (test code = 413) [id number] 05:27:41 Test Item Value Reference Range Interpretation Comments MAGNESIUM (BEAKER) (test code = 2.0 mg/dL 1.6-2.6 627) Gas Engineer ID - [id number] 05:27:41 Test Item Value Reference Range Interpretation Comments PHOSPHORUS (BEAKER) (test code = 4.3 mg/dL 2.3-4.7 604) Gas Engineer ID - EMBASIC METABOLIC [id number] 05:27:40 Test Item Value Reference Range Interpretation [...] not appl icable for dialysis patien ts Gas Engineer ID - EM(CELLAVISION MANUAL DIFF)2023-07-17 01:11:07 Test [...] CONCENTRATION Adequate (CELLAVISION)(BEAKER) (test code = 3438) Gas Engineer ID - Nato Manzo comments: Slide comments:CBC W/PLT COUNT & AUTO [id number] 01:11:06 Test Item Value Reference Range Interpretation [...] 0-0 (BEAKER) (test code = 413) Prepare [id number] 00:43:00 Test Item Value Reference Range Interpretation Comments CROSSMATCH (test code = COMPATIBLE 2263) Unit ABO (test code = O Pos 3467145) UNIT NUMBER (test code = [id number] 934-0) Status (test code = RETURNED FROM ISSUE 5162753) Blood Bank Product (test RED BLOOD CELLS code = 2263) PRODUCT CODE (test code = [id number] 933-2) [facility] [id number] 00:43:00 Test Item Value Reference Range Interpretation Comments CROSSMATCH (test code = COMPATIBLE 2263) Unit ABO (test code = O Pos 1287670) UNIT NUMBER (test code = [id number] 934-0) Status (test code = RETURNED FROM ISSUE 2590800) Blood Bank Product (test RED BLOOD CELLS code = 2263) PRODUCT CODE (test code = X1368H59 933-2) [facility] [id number] 00:43:00 Test Item Value Reference Range Interpretation Comments CROSSMATCH (test code = COMPATIBLE 2264) Unit ABO (test code = O Pos 3293527) UNIT NUMBER (test code = [id number] 934-0) Status (test code = RETURNED FROM ISSUE 6968313) Blood Bank Product (test RED BLOOD CELLS code = 2263) PRODUCT CODE (test code = [id number] 933-2) [facility] CenterBASIC METABOLIC [id number] 00:32:53 Test Item Value Reference Range Interpretation [...] not appl icable for dialysis patien ts Gas Engineer ID - [id number] 00:29:21 Test Item Value Reference Range Interpretation Comments PHOSPHORUS (BEAKER) (test code = 4.4 mg/dL 2.3-4.7 604) Gas Engineer ID - [id number] 00:29:20 Test Item Value Reference Range Interpretation Comments MAGNESIUM (BEAKER) (test code = 2.0 mg/dL 1.6-2.6 627) Gas Engineer ID - ADMINPOCT-GLUCOSE [id number] 00:04:16 Test Item Value Reference Range Interpretation Comments POC-GLUCOSE METER 173 mg/dL 70-110 H : [facility] (BEAKER) (test code = [place], 1538) 014[address]: Gas Engineer/Techni krystal ID = [id number] for NIKA GORMAN CALCIUM, [id number] 23:02:35 Test Item Value Reference Range Interpretation Comments CALCIUM IONIZED (BEAKER) (test 1.06 mmol/L 1.12-1.27 L code = 698) PH, BLOOD (BEAKER) (test code = 7.35 1810) CALCIUM, [id number] 19:18:38 Test Item Value Reference Range Interpretation Comments CALCIUM IONIZED (BEAKER) (test 0.94 mmol/L 1.12-1.27 L code = 698) PH, BLOOD (BEAKER) (test code = 7.38 1810) Blood gas, [id number] 19:18:37 Test Item Value Reference Range Interpretation Comments pH, Arterial (test code 7.40 7.35-7.45 = 2744-1) pCO2, Arterial (test 44 See_Comment [Autom ated message] code = 2019-8) The system [employer] generated this result transmit gonsalo reference range : 35 - 45 mm Hg. The reference range was not used to interpret this result as normal/abnormal . pO2, Arterial (test 229 See_Comment H [Automa gonsalo message] code = 2703-7) The system [employer] generated this result transmit gonsalo reference range [...] 50.0 Lab Interpretation Abnormal (test code = 67589-2) [facility] CenterH[facility]/HCT (H&H)-Stat [id number] 19:18:37 Test Item Value Reference Range Interpretation Comments Hemoglobin (test code = 10.5 See_Comment L [Au tomated message] 718-7) The system [facility] [employer] generated this result transmitted ref erence range: 13.0 - 1 6.8 GM/DL. The refe rence range was not u sed to interpret this result as normal/abnor mal. Hematocrit (test code = 31.0 % 40.0-50.0 L 4544-3) Lab Interpretation (test Abnormal code = 24189-9) [facility] CenterBlood gas, [id number] 19:18:37 Test Item Value Reference Range Interpretation Comments pH, Arterial (test code 7.40 7.35-7.45 = 2744-1) pCO2, Arterial (test 44 See_Comment [Autom ated message] code = 2019-8) The system [facility] generated this result transmit gonsalo reference range : 35 - 45 mm Hg. The reference range was not used to interpret this result as normal/abnormal . pO2, Arterial (test 229 See_Comment H [Automa gonsalo message] code = 2703-7) The system [facility] generated this result transmit gonsalo reference range [...] 50.0 Lab Interpretation Abnormal (test code = 69345-6) [facility] CenterHGB/HCT (H&H)-Stat [id number] 19:18:37 Test Item Value Reference Range Interpretation Comments Hemoglobin (test code = 10.5 See_Comment L [Au tomated message] 118-7) The system [facility] [employer] generated this result transmitted ref erence range: 13.0 - 1 6.8 GM/DL. The refe rence range was not u sed to interpret this result as normal/abnor mal. Hematocrit (test code = 31.0 % 40.0-50.0 L 4544-3) Lab Interpretation (test Abnormal code = 43108-1) [facility] CenterBlood gas, [id number] 19:18:37 Test Item Value Reference Range Interpretation Comments pH, Arterial (test code 7.40 7.35-7.45 = 2744-1) pCO2, Arterial (test 44 See_Comment [Autom ated message] code = 2019-8) The system [facility] generated this result transmit gonsalo reference range : 35 - 45 mm Hg. The reference range was not used to interpret this result as normal/abnormal . pO2, Arterial (test 229 See_Comment H [Automa gonsalo message] code = 2703-7) The system [facility] generated this result transmit gonsalo reference range [...] 50.0 Lab Interpretation Abnormal (test code = 45170-9) [facility] CenterHGB/HCT (H&H)-Stat [id number] 19:18:37 Test Item Value Reference Range Interpretation Comments Hemoglobin (test code = 10.5 See_Comment L [Au tomated message] 718-7) The system [facility] [employer] generated this result transmitted ref erence range: 13.0 - 1 6.8 GM/DL. The refe rence range was not u sed to interpret this result as normal/abnor mal. Hematocrit (test code = 31.0 % 40.0-50.0 L 4544-3) Lab Interpretation (test Abnormal code = 39911-6) [facility] CenterBLOOD GAS, [id number] 19:18:37 Test Item Value Reference Range Interpretation [...] = 1819) 50.0 HGB/HCT (H&H) - STAT [id number] 19:18:37 Test Item Value Reference Range Interpretation Comments HEMOGLOBIN (BEAKER) (test code = 10.5 GM/DL 13.0-16.8 L 410) HEMATOCRIT (BEAKER) (test code = 31.0 % 40.0-50.0 L 411) Potassium-Stat [id number] 19:18:06 Test Item Value Reference Range Interpretation Comments Potassium (test code = 2823-3) 3.6 meq/L 3.6-5.5 Lab Interpretation (test code = Normal 35500-5) [facility] CenterPotassium-Stat [id number] 19:18:06 Test Item Value Reference Range Interpretation Comments Potassium (test code = 2823-3) 3.6 meq/L 3.6-5.5 Lab Interpretation (test code = Normal 43870-4) [facility] CenterPotassium-Stat [id number] 19:18:06 Test Item Value Reference Range Interpretation Comments Potassium (test code = 2823-3) 3.6 meq/L 3.6-5.5 Lab Interpretation (test code = Normal 53440-9) [facility] CenterPOTASSIUM-STAT [id number] 19:18:06 Test Item Value Reference Range Interpretation Comments POTASSIUM (BEAKER) (test code = 3.6 meq/L 3.6-5.5 379) Glucose-Stat [id number] 19:18:05 Test Item Value Reference Range Interpretation Comments Glucose (test code = 2345-7) 133 mg/dL 70-110 H Lab Interpretation (test code = Abnormal 49275-9) [facility] [id number] 19:18:05 Test Item Value Reference Range Interpretation Comments Sodium (test code = 2951-2) 138 meq/L 136-145 Lab Interpretation (test code = Normal 45857-9) [facility] CenterGlucose-Stat [id number] 19:18:05 Test Item Value Reference Range Interpretation Comments Glucose (test code = 2345-7) 133 mg/dL 70-110 H Lab Interpretation (test code = Abnormal 38833-6) [facility] [id number] 19:18:05 Test Item Value Reference Range Interpretation Comments Sodium (test code = 2951-2) 138 meq/L 136-145 Lab Interpretation (test code = Normal 53087-7) [facility] CenterGlucose-Stat [id number] 19:18:05 Test Item Value Reference Range Interpretation Comments Glucose (test code = 2345-7) 133 mg/dL 70-110 H Lab Interpretation (test code = Abnormal 42499-0) [facility] [id number] 19:18:05 Test Item Value Reference Range Interpretation Comments Sodium (test code = 2951-2) 138 meq/L 136-145 Lab Interpretation (test code = Normal 79192-2) [facility] CenterGLUCOSE-STAT [id number] 19:18:05 Test Item Value Reference Range Interpretation Comments GLUCOSE RANDOM (BEAKER) (test code 133 mg/dL 70-110 H = 652) SODIUM NA-STAT [id number] 19:18:05 Test Item Value Reference Range Interpretation Comments SODIUM (BEAKER) (test code = 381) 138 meq/L 136-145 CALCIUM, [id number] 18:22:48 Test Item Value Reference Range Interpretation Comments CALCIUM IONIZED (BEAKER) (test 0.97 mmol/L 1.12-1.27 L code = 698) PH, BLOOD (BEAKER) (test code = 7.28 1810) BLOOD GAS, [id number] 18:22:46 Test Item Value Reference Range Interpretation [...] = 1819) 50.0 HGB/HCT (H&H) - STAT [id number] 18:22:46 Test Item Value Reference Range Interpretation Comments HEMOGLOBIN (BEAKER) (test code = 11.7 GM/DL 13.0-16.8 L 410) HEMATOCRIT (BEAKER) (test code = 34.0 % 40.0-50.0 L 411) POTASSIUM-STAT [id number] 18:22:33 Test Item Value Reference Range Interpretation Comments POTASSIUM (BEAKER) (test code = 3.8 meq/L 3.6-5.5 379) GLUCOSE-STAT [id number] 18:22:32 Test Item Value Reference Range Interpretation Comments GLUCOSE RANDOM (BEAKER) (test code 126 mg/dL 70-110 H = 652) SODIUM NA-STAT [id number] 18:22:32 Test Item Value Reference Range Interpretation Comments SODIUM (BEAKER) (test code = 381) 135 meq/L 136-145 L BLOOD GAS, [id number] 17:09:48 Test Item Value Reference Range Interpretation [...] (BEAKER) (test code = 1819) 75.0 CALCIUM, [id number] 17:09:20 Test Item Value Reference Range Interpretation Comments CALCIUM IONIZED (BEAKER) (test 1.13 mmol/L 1.12-1.27 code = 698) PH, BLOOD (BEAKER) (test code = 7.36 1810) HGB/HCT (H&H) - STAT [id number] 17:09:03 Test Item Value Reference Range Interpretation Comments HEMOGLOBIN (BEAKER) (test code = 14.7 GM/DL 13.0-16.8 410) HEMATOCRIT (BEAKER) (test code = 43.0 % 40.0-50.0 411) GLUCOSE-STAT [id number] 17:09:02 Test Item Value Reference Range Interpretation Comments GLUCOSE RANDOM (BEAKER) (test code 108 mg/dL 70-110 = 652) SODIUM NA-STAT [id number] 17:09:01 Test Item Value Reference Range Interpretation Comments SODIUM (BEAKER) (test code = 381) 137 meq/L 136-145 POTASSIUM-STAT [id number] 17:09:01 Test Item Value Reference Range Interpretation Comments POTASSIUM (BEAKER) (test code = 3.8 meq/L 3.6-5.5 379) BASIC METABOLIC [id number] 05:29:58 Test Item Value Reference Range Interpretation [...] (test code = 697) EGFR (BEAKER) 95 Interpretati on of eGFR (test code = mL/min/1.73 values [...] not appl icable for dialysis patien ts Gas Engineer ID - MARY WPROTHROMBIN [id number] 05:21:53 Test Item Value Reference Range Interpretation Comments PROTIME (BEAKER) 14.0 seconds 11.9-14.2 (test code = 759) INR (BEAKER) (test 1.10 See_Comment [Automat ed message] code = 370) The system [employer] generated this result transmitted ref erence range: [...] 0-0 (BEAKER) (test code = 413) BLOOD [id number] 10:00:34 Test Item Value Reference Range Interpretation Comments CULTURE (BEAKER) (test No growth in 5 days code = 1095) BLOOD [id number] 07:00:11 Test Item Value Reference Range Interpretation Comments CULTURE (BEAKER) (test No growth in 5 days code = 1095) BASIC METABOLIC [id number] 07:27:27 Test Item Value Reference Range Interpretation [...] not appl icable for dialysis patien ts Gas Engineer ID - MARY WCBC (HEMOGRAM ONLY)2023-07-13 06:54:37 Test Item Value Reference [...] WBC 0-0 (BEAKER) (test code = 413) [id number] 06:52:14 Test Item Value Reference Range Interpretation Comments PROSTATE SPECIFIC ANTIGEN (BEAKER) 0.9 ng/mL 0.0-4.0 (test code = 844) Gas Engineer ID - ADMINBASIC METABOLIC [id number] 06:26:08 Test Item Value Reference Range Interpretation [...] 30-44 G4 Severl y decreased 15-29 G5 Kidne y failure <15Reported eGF R is based on the CKD-EPI 2020 equation that d oes not use a race coefficientEsti mated GFR is not as accur ate as Creatinine Cristina jeanine in predicting glom erular filtration rate . Estimated GFR is not appl icable for dialysis patien ts Gas Engineer ID - MARCOCBC (HEMOGRAM ONLY)2023-07-12 06:03:59 Test [...] (BEAKER) (test code = 413) BASIC METABOLIC [id number] 06:17:28 Test Item Value Reference Range Interpretation [...] De scription 1092) sq m Result G1 Norm al or high >=90 G2 Mildly decreased 60-89 G3a Mildl y to moderately 45-5 9 G3b Moderately to s everely 30-44 G4 Severl y decreased 15-29 G5 Kidney failure <15Reported eGF R is based on the CKD-EPI 2021 equation that d oes not use a race coefficientEsti mated GFR is not as accur ate as Creatinine Cristina solorzano in predicting glom erular filtration rate . Estimated GFR is not appl icable for dialysis patien ts Gas Engineer ID - [id number] 06:17:28 Test Item Value Reference Range Interpretation Comments MAGNESIUM (BEAKER) (test code = 2.0 mg/dL 1.6-2.6 627) Gas Engineer ID - [id number] 06:17:28 Test Item Value Reference Range Interpretation Comments PHOSPHORUS (BEAKER) (test code = 2.1 mg/dL 2.3-4.7 L 604) Gas Engineer ID - ADMINCBC (HEMOGRAM ONLY)2023-07-11 05:59:41 Test [...] (test code = 413) CTA AAA AND [id number] 22:32:09 [facility] : 1945 Sex: MEXAM: CTAngiography Abdomen and Pelvis With Runoff to the LowerExtremities With Intravenous ContrastCLINICALINDICATION: Peripheral arterial disease (PAD), prior revasc,follow upTECHNIQUE: Axial computed tomographic angiography images of theabdomen, pelvis and lower extremities with intravenous contrast. ThisCT exam was performed using one or more of the following dose reductiontechniques: automated exposurecontrol, adjustment of the mA and/or kVaccording to patient size, and/or use of iterative reconstructiontechnique. MIP reconstructed images were created and reviewed.COMPARISON: No relevant prior studies available.FINDINGS:VASCULATURE:Aorta: No acute findings. No abdominal aortic aneurysm. 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 There is moderate, 60% stenosis of the origin ofthe right superficial femoral artery. Severe, 90%stenosis of thedistal right superficial femoral artery. Moderate plaque with 30%stenosis of the right popliteal artery.Right calf/foot arteries: No acute findings. No occlusion orsignificant stenosis.Left iliac arteries: No acute findings. No occlusion or significantstenosis.Left femoral/popliteal arteries: Multifocal plaque with up to 60%stenosis of the distal left superficial femoral artery. Heavilycalcified plaque causing 60% stenosis of the left popliteal artery.Left calf/foot arteries: No acutefindings. No occlusion orsignificant stenosis.Lung bases: Unremarkable. No mass. No consolidation.ABDOMEN:Liver: Unremarkable. No mass.Gallbladder and bile ducts: Unremarkable. No calcified stones. Noductal dilation.Pancreas: Unremarkable. No ductal dilation. No mass.Spleen: Unremarkable. No splenomegaly.Adrenals: Unremarkable. No mass.Kidneys and ureters: Unremarkable. No hydronephrosis. No solid mass.Stomach and bowel: There is diverticulosis of the left and sigmoidcolon without evidence of diverti culitis. 6.4 cm of stool in the rectumcould indicate mild constipation. No obstruction.PELVIS:Appendix: No findings to suggest acute appendicitis.Bladder: Unremarkable. No mass.Reproductive: Unremarkable as visualized.ABDOMEN, PELVIS and LOWER EXTREMITIES:Intraperitoneal space: Unremarkable. No significant fluid collection. No free air.Bones/joints: Mild stenosis of the left tibial peroneal trunk. Noacute fracture. No dislocation.Soft tissues: Unremarkable.Lymph nodes: Unremarkable. No enlarged lymph nodes.Other findings: Surgical changes status post aortobifem bypass [...] Diffuse atherosclerotic disease with other areas of qykz-mm-mszvyavwnoaeruqsq described above.Electronically Signed By: Luis Manuel Hernandez07/10/2023 22:34 CDTWorkstation Name: [id number]/RT-PCR (Asymptomatic ONLY)2023-07-10 18:35:27 Test Item Value Reference Interpretation Comments Range SARS-COV2/RT-PCR Negative Negative The SARS-Co V-2 (test code = target nucleic 83532-3) acids are not detected in thi s [...] om SARS-CoV-2 in a nasopharyngeal swab specimen [facility] from individual s suspected of COVID-19 by [...] Food, Drug and Cosmetic Act, 21 U.S.C. § 360bbb-3(b)(1), unless the authorization is terminated or revoked sooner. Fact Sheet for Healthcare Providers: https://www.[employer]/Documents/Xp ert%20Xpress%20SAR S%20CoV-2/Fact%20S heets/302-3802%20S ARS-COV-2%20HEALTH CARE%20PROVIDERS%2 0FACT%20SHEET.pdf Fact Sheet for Healthcare Patients: https://www.[employer]/Documents/Xp ert%20Xpress%20SAR S%20CoV-2/Fact%20S heets/302-3801%20S ARS-COV-2%20PATIEN T%20FACT%20SHEET.p df Lab Interpretation Normal (test code = 77375-3) [facility]23-07-10 18:35:27 Test Item Value Reference Interpretation Comments Range SARS-COV2/RT-PCR Negative Negative The SARS-Co V-2 (test code = target nucleic 31014-1) acids are not detected in thi s [...] Food, Drug and Cosmetic Act, 21 U.S.C. § 360bbb-3(b)(1), unless the authorization is terminated or revoked sooner. Fact Sheet for Healthcare Providers: https://www.[employer]/Documents/Xp ert%20Xpress%20SAR S%20CoV-2/Fact%20S heets/302-3802%20S ARS-COV-2%20HEALTH CARE%20PROVIDERS%2 0FACT%20SHEET.pdf Fact Sheet for Healthcare Patients: https://www.[employer]/Documents/Xp ert%20Xpress%20SAR S%20CoV-2/Fact%20S heets/302-3801%20S ARS-COV-2%20PATIEN T%20FACT%20SHEET.p df Lab Interpretation Normal (test code = 18782-0) [facility]2023-07-10 18:35:27 Test Item Value Reference Interpretation Comments Range SARS-COV2/RT-PCR Negative Negative The SARS-Co V-2 (test code = target nucleic 47116-8) acids are not detected in thi s [...] om SARS-CoV-2 in a nasopharyngeal swab specimen [facility] from individual s suspected of COVID-19 by [...] Food, Drug and Cosmetic Act, 21 U.S.C. § 360bbb-3(b)(1), unless the authorization is terminated or revoked sooner. Fact Sheet for Healthcare Providers: https://www.[employer]/Documents/Xp ert%20Xpress%20SAR S%20CoV-2/Fact%20S heets/302-3802%20S ARS-COV-2%20HEALTH CARE%20PROVIDERS%2 0FACT%20SHEET.pdf Fact Sheet for Healthcare Patients: https://www.[employer]/Documents/Xp ert%20Xpress%20SAR S%20CoV-2/Fact%20S heets/302-3801%20S ARS-COV-2%20PATIEN T%20FACT%20SHEET.p df Lab Interpretation Normal (test code = 04057-6) [facility]2023-07-10 18:35:27 Test Item Value Reference Interpretation Comments Range SARS-COV2/RT-PCR Negative Negative The SARS-Co V-2 (test code = target nucleic 20709-5) acids are not detected in thi s [...] S ARS CoV-2 test is a rapid, real-egm e RT-PCR test intended for th e qualitative detection of nucleic acid fr om SARS-CoV-2 in a nasopharyngeal swab specimen colle gonsalo from individual s suspected of COVID-19 [...] Food, Drug and Cosmetic Act, 21 U.S.C. § 360bbb-3(b)(1), unless the authorization is terminated or revoked sooner. Fact Sheet for Healthcare Providers: https://www.[employer]/Documents/Xp ert%20Xpress%20SAR S%20CoV-2/Fact%20S heets/302-3802%20S ARS-COV-2%20HEALTH CARE%20PROVIDERS%2 0FACT%20SHEET.pdf Fact Sheet for Healthcare Patients: https://www.[employer]/Documents/Xp ert%20Xpress%20SAR S%20CoV-2/Fact%20S heets/302-3801%20S ARS-COV-2%20PATIEN T%20FACT%20SHEET.p df Lab Interpretation Normal (test code = 76690-2) [facility])2023-07-10 18:35:27 Test Item Value Reference Range Interpretation Comments SARS-COV2/RT-PCR Negative Negative The SARS-Co V-2 target (test code = nucleic acids a re not 7323429) detected in thi s specimen. Negative result [...] revoked sooner. Fact Sheet for Healthcare Providers: https://www.[employer]/Documents/Xpert%20Xpress%20SARS%20CoV-2/Fact%20Sheets/302-3802%83IVCT-BCH-6%20 HEALTHCARE%20PROVIDERS%20FACT%20SHEET.pdf Fact Sheet for Healthcare Patients: https://www.[facility]/Documents/Xpert%20Xp ress%20SARS%20CoV-2/Fact%20Sheets/302-3801%82YTVF-VVC-3%20PATIENT%20FACT%20SHEET .pdfHIGH SENSITIVITY TROPONIN [id number] 13:56:59 Test Item Value Reference Range Interpretation Comments HIGH SENSITIVITY 8 pg/ml See_Comment [Automated message] TROPONIN I (test code = The system which 9439994) generated this result transmitted ref erence range: <=35. Th e reference range was not used to interpr et this result as normal/abnormal . Gas Engineer ID - esauThe AUTOMOTIVE QUALITY MANAGER STAT High Sensitivity Troponin-I results should be used in conjunction with other diagnostic information such as ECG, clinical observations and information, and patient symptoms to aid in the diagnosis of [place].BASIC METABOLIC [id number] 11:12:51 Test Item Value Reference Range Interpretation [...] (BEAKER) (test code = 652) CALCIUM (BEAKER) 9.3 mg/dL 8.4-10.2 (test code = 697) EGFR (BEAKER) 98 Interpretati on of eGFR (test code = mL/min/1.73 values [...] not appl icable for dialysis patien ts Gas Engineer ID - esauOperator ID - esauUrinalysis w/Microscopic + Reflex to Culture 2023-07-10 09:23:59 Test Item Value Reference Range Interpretation Comments Color, UA (test code [place] = 5778-6) Clarity, UA (test Hazy code = 5767-9) Specific [place], UA 1.018 1.001-1.035 (test code = 5811-5) pH, UA (test code = 7.5 5.0-8.0 5803-2) Protein, UA (test 200 mg/dL Negative A code = 58141-3) Glucose, UA (test Negative Negative code = 365) Ketones, UA (test 100 mg/dL Negative A code = 2514-8) Bilirubin, UA (test Negative Negative code = 07987-4) Blood, UA (test code Large Negative A = 05181-5) Nitrite, UA (test Positive Negative A code = 5802-4) Leukocytes, UA (test Large Negative A code = 5799-2) Urobilinogen, UA 0.2 0.2-1.0 (test code = 09291-7) RBC, UA (test code = See_Comment [Autom ated 20328-5) message] The system which generated this result [...] = 2795) RAJESH (test code = RAJESH) Gas Engineer ID - [auto]Gas Engineer ID - tech Lab Interpretation Abnormal (test code = 27688-4) [facility] Reflex [facility] Culture 2023-07-10 09:23:59 Test Item Value Reference Range Interpretation Comments Color, UA (test code [place] = 5778-6) Clarity, UA (test Hazy code = 5767-9) Specific [place], UA 1.018 1.001-1.035 (test code = 5811-5) pH, UA (test code = 7.5 5.0-8.0 5803-2) Protein, UA (test 200 mg/dL Negative A code = 36362-5) Glucose, UA (test Negative Negative code = 365) Ketones, UA (test 100 mg/dL Negative A code = 2514-8) Bilirubin, UA (test Negative Negative code = 33921-3) Blood, UA (test code Large Negative A = 90168-8) Nitrite, UA (test Positive Negative A code = 5802-4) Leukocytes, UA (test Large Negative A code = 5799-2) Urobilinogen, UA 0.2 0.2-1.0 (test code = 16686-1) RBC, UA (test code = See_Comment [Autom ated 08604-8) message] The system which generated this result [...] = 2795) RAJESH (test code = RAJESH) Gas Engineer ID - [auto]Gas Engineer ID - tech Lab Interpretation Abnormal (test code = 92314-2) [facility] Reflex to Culture 2023-07-10 09:23:59 Test Item Value Reference Range Interpretation Comments Color, UA (test code [place] = 5778-6) Clarity, UA (test Hazy code = 5767-9) Specific [place], UA 1.018 1.001-1.035 (test code = 5811-5) pH, UA (test code = 7.5 5.0-8.0 5803-2) Protein, UA (test 200 mg/dL Negative A code = 19545-6) Glucose, UA (test Negative Negative code = 365) Ketones, UA (test 100 mg/dL Negative A code = 2514-8) Bilirubin, UA (test Negative Negative code = 61878-7) Blood, UA (test code Large Negative A = 78734-7) Nitrite, UA (test Positive Negative A code = 5802-4) Leukocytes, UA (test Large Negative A code = 5799-2) Urobilinogen, UA 0.2 0.2-1.0 (test code = 26094-5) RBC, UA (test code = See_Comment [Autom ated 25147-6) message] The system which generated this result [...] = 2795) RAJESH (test code = RAJESH) Gas Engineer ID - [auto]Gas Engineer ID - tech Lab Interpretation Abnormal (test code = 23601-4) [facility]Microscopic + Reflex to Culture 2023-07-10 09:23:59 Test Item Value Reference Range Interpretation Comments Color, UA (test code [place] = 5778-6) Clarity, UA (test Hazy code = 5767-9) Specific [place], UA 1.018 1.001-1.035 (test code = 5811-5) pH, UA (test code = 7.5 5.0-8.0 5803-2) Protein, UA (test 200 mg/dL Negative A code = 49863-0) Glucose, UA (test Negative Negative code = 365) Ketones, UA (test 100 mg/dL Negative A code = 2514-8) Bilirubin, UA (test Negative Negative code = 36749-8) Blood, UA (test code Large Negative A = 88154-4) Nitrite, UA (test Positive Negative A code = 5802-4) Leukocytes, UA (test Large Negative A code = 5799-2) Urobilinogen, UA 0.2 0.2-1.0 (test code = 27473-5) RBC, UA (test code = See_Comment [Autom ated 77437-3) message] The system which generated this result [...] = 2795) RAJESH (test code = RAJESH) Gas Engineer ID - [auto]Gas Engineer ID - tech Lab Interpretation Abnormal (test code = 11559-2) [facility]/ REFLEX URINE [id number] 09:23:59 Test Item Value Reference Range Interpretation Comments COLOR (BEAKER) (test code = 470) [place] CLARITY (BEAKER) (test code = 469) Hazy [...] 25 /HPF SOURCE(BEAKER) (test code = 2795) Gas Engineer ID - [auto]Gas Engineer ID - [id number] 07:07:03 Test Item Value Reference Range Interpretation Comments MAGNESIUM (BEAKER) (test code = 2.0 mg/dL 1.6-2.6 627) Gas Engineer ID - [id number] 07:07:03 Test Item Value Reference Range Interpretation Comments PHOSPHORUS (BEAKER) (test code = 2.7 mg/dL 2.3-4.7 604) Gas Engineer ID - esauCBC W/PLT COUNT & AUTO [id number] 06:12:49 Test Item Value Reference Range Interpretation [...]
[2023-08-27] MEDS ORDERED: PANTOPRAZOLE 40 MG INJ ONE (21:50)
[2023-08-27] MEDS ORDERED: NA CHLORIDE 0.9% 500 ML ONE (21:51)
[2023-08-27] MEDS ORDERED: OCTREOTIDE ACETATE 100 MCG/ML ONE (21:51)
[2023-08-27] MEDS ORDERED: OCTREOTIDE ACETATE 500 MCG/ML ONE (21:51)
[2023-08-27] MEDS ORDERED: NA CHLORIDE 0.9% 1,000 ML ONE (21:51)
[2023-08-27] MEDS ORDERED: NA CHLORIDE 0.9% 250 ML ONE ×2 (21:51→23:16)
[2023-08-27 21:52] LABS: Absolute Lymphocytes (CBC) 4.9 K/uL (0.7-4.9); Hematocrit 22.3 % (39.6-49.0); Lymphocytes % 22.9 % (15.3-44.8); MCV 90.1 fL (80-100); MPV 8.2 fL (7.6-11.3); Platelets 486 thou/uL (152-406); RBC Red Blood Cell Count 2.47 M/uL (4.33-5.43)
--- NOTE | 2023-08-27 22:02 | RAD REPORT ---
EXAM DESCRIPTION: CT - Abdomen Pelvis Wo Contrast - 08/27/2023 9:50 pm CLINICAL HISTORY: Abdominal pain. GI BLEED COMPARISON: No comparisons TECHNIQUE: CT imaging of the abdomen and pelvis was performed without contrast. Solid organ, bowel a nd vascular assessment is limited due to lack of IV and oral contrast. All CT scans are performed using dose optimization technique as appropriate and may include automated exposure control or mA/KV adjustment according to patient size. FINDINGS: The lower lung rosas are clear.Atherosclerosis of the aorta is present. Cholelithiasis no gonsalo. The liver, spleen, pancreas, adrenal glands and kidneys are within normal limits for a limited non-co ntrast examination.Aortobifemoral bypass noted. No bowel obstruction, free air, free fluid or abscess. Moderate stool is present throughout the colon . Diverticulosis coli without diverticulitis. The appendix is normal. Moderate lumbar degenerative changes. IMPRESSION: No acute intra-abdominal or pelvic findings. Cholelithiasis. A limited non-contrast examination was performed as detailed.
[2023-08-27 22:11] LABS: Albumin 2.3 g/dL (3.4-5.0); Bilirubin Total 0.2 mg/dL (0.2-1.0); Potassium 3.3 mEq/L (3.5-5.1); Protein, Total 5.3 g/dL (6.4-8.2); Troponin High Sensitivity 23.1 pg/mL (<58.9)
--- NOTE | 2023-08-27 22:59 | ER ---
Nurse's Notes [facility] Name: Miguel Baxter Age: 78 yrs Sex: Male : 1945 Arrival Date: 08/27/2023 Time: 21:24 Bed 2 Private MD: Diagnosis: Upper GI bleed, anemia, leukocytosis of unknown etiology Presentation: 08/27 21:26 Chief complaint: EMS states: PT HAD HX OF GASTRIC ULCER, RECENT SURGERY, WAS VOMITING rv BLOOD TODAY, + SYNCOPE, HYPOTENSIVE AT SCENE. AAOX4 UPON ARRIVAL. Coronavirus screen: At this time, the client does not indicate any symptoms associated with coronavirus-19. Ebola Screen: No symptoms or risks identified at this time. Initial Sepsis Screen: Does the patient meet any 2 criteria? No. Patient's initial sepsis screen is negative. Does the patient have a suspected source of infection? No. Patient's initial sepsis screen is negative. Risk Assessment: Do you want to hurt yourself or someone else? Patient reports no desire to harm self or others. Onset of symptoms was August 27, 2023. 21:26 Method Of Arrival: EMS: [facility] rv 21:26 Acuity: JANAY 2 rv Triage Assessment: 21:28 General: Appears ill, Behavior is calm, cooperative. Pain: Denies pain. Neuro: Level of rv Consciousness is awake, alert, obeys commands, Oriented to person, place, time, situation. Cardiovascular: Capillary refill Patient's skin is warm and dry. Respiratory: Airway is patent Respiratory effort is even, unlabored. Historical: - Allergies: 21:28 Iodine; rv 21:28 PENICILLINS; rv - PMHx: 21:28 CHF; CVA; Diabetes; High Cholesterol; Hypertension; tumor; rv - PSHx: 21:28 Stented artery; rv - Immunization history:: Adult Immunizations up to date. - Social history:: Smoking status: unknown. Screenin:38 [facility] ED Fall Risk Assessment (Adult) History of falling in the last 3 months, rv including since admission Yes- single mechanical fall (1 pt) Confusion or Disorientation Yes (5 pts) Score/Fall Risk Level 3 or more points = High Risk Oriented to surroundings, Maintained a safe environment, Educated pt \T\ family on fall prevention, incl call for assistance when getting out of bed, Assessed \T\ reinforced patient's understanding of fall precautions, Provided non-skid footwear, Hourly rounding (assess needs \T\ fall precautionary measures) done, Used ambulatory aids as needed (educated on \T\ assisted with), Used gait belt as appropriate Implemented a Fall Risk Plan of Care, Apply high fall risk patient identification: yellow non skid footwear/ fall signage, Placed fall mat w/ non beveled edge next to bed, Activated bed/chair alarm, Remained w/in arm's length of patient and in sight while toileting, Offered frequent toileting (1:1 observation), Remained with patient while ambulating, Utilized family, sitter, or virtual directional survey drafter as indicated. Abuse screen: Denies threats or abuse. Denies injuries from another. Nutritional screening: No deficits noted. Tuberculosis screening: No symptoms or risk factors identified. Assessment: 21:30 General: SEE TRIAGE NOTE. bp 22:34 Reassessment: No changes from previously documented assessment. Patient is alert, bp oriented x 3, equal unlabored respirations, skin warm/dry/pink. 08/28 01:51 Reassessment: REPORT GIVEN TO MERRITT EVERETT. rv Vital Signs: 08/27 21:26 BP 118 / 66; Pulse 70; Resp 17; Temp 98; Pulse Ox 100% on R/A; Weight 51.26 kg; Height rv 5 ft. 9 in. ; 22:34 BP 130 / 72; Pulse 75; Resp 15; Pulse Ox 100% ; bp 23:00 BP 137 / 68; Pulse 81; Resp 17; Temp 97.2(TE); Pulse Ox 100% ; rv 23:20 BP 105 / 71; Pulse 75; Resp 16; Temp 98(TE); Pulse Ox 100% on R/A; rv 08/28 00:00 BP 139 / 65; Pulse 74; Resp 18; Pulse Ox 100% on R/A; rv 00:30 BP 120 / 58; Pulse 73; Resp 20; Pulse Ox 100% on R/A; rv 01:00 BP 124 / 73; Pulse 70; Resp 20; Temp 98.2; Pulse Ox 100% on R/A; rv 01:30 BP 121 / 65; Pulse 68; Resp 20; Pulse Ox 99% on R/A; rv 01:45 BP 123 / 67; Pulse 68; Resp 20; Temp 98.1; Pulse Ox 100% ; rv 08/27 21:26 Body Mass Index 16.69 (51.26 kg, 175.26 cm) rv [place] Coma Score: 01:45 Eye Response: spontaneous(4). Motor Response: obeys commands(6). Verbal Response: rv oriented(5). Total: 15. ED Course: 08/27 21:26 Patient arrived in ED. rv 21:28 Triage completed. rv 21:31 Kulwant River MD is Attending Physician. sp3 21:32 Arm band placed on right wrist. rv 21:33 Maintain EMS IV. Dressing intact. Good blood return noted. Site clean \T\ dry. Gauge \T\ rv site: G20 LAC. 21:36 Shree Gtz RN is Primary Nurse. rv 21:38 Patient has correct armband on for positive identification. Client placed on continuous rv cardiac and pulse oximetry monitoring. NIBP monitoring applied. court monitor on. 21:51 CT Abd/Pelvis - Without Contrast In Process Unspecified. EDMS 22:00 Inserted saline lock: 22 gauge in right forearm, using aseptic technique. Blood bp collected. 22:24 Initiated transfer with Vaishali at [facility]. rv1 23:[address] Coleman at [facility] to 3 [facility] bed 1. rv1 23:10 Pt family is requesting pt be transferred to either [facility] or [facility] facilities.rv1 23:25 Initiated transfer with Sweta at [facility]. rv1 23:30 Inserted saline lock: 20 gauge in right hand, using aseptic technique. rv 23:31 No provider procedures requiring assistance completed. rv 08/28 00:[address] Escudero at [facility] to 10B Rm 1035. rv1 01:16 Spoke with Chandana Whitaker at EMS, given 5-10 min ETA for transfer truck. rv1 01:50 Provided Education on: Blood Transfusion. rv 01:51 Patient transferred, IV remains in place. rv Administered Medications: 08/27 22:14 Drug: NS 0.9% IV 1000 ml IV at 1 bolus Per protocol; 1000 mL bolus Route: IV; Rate: 1 bp bolus; Site: left forearm; 23:32 Follow up: IV Status: Completed infusion; IV Intake: 1000ml rv 22:14 Drug: Pantoprazole IV 8 mg/hr IV at 25 ml/hr continuous; (Standard dilution is 80 mg in bp 250 mL NS) Route: IV; Rate: 25 ml/hr; Site: left forearm; 23:32 Follow up: IV Status: Infusion continued upon transfer rv 22:14 Drug: Pantoprazole IVP 40 mg IVP once Route: IVP; Site: left forearm; bp 23:32 Follow up: Response: No adverse reaction rv 22:14 Drug: Octreotide Infusion (50 mcg/hr) - (Octreotide IV 500 mcg, NS 0.9% IV 500 ml) IV bp at 50 ml/hr continuous Route: IV; Rate: 50 ml/hr; Site: right forearm; 23:32 Follow up: IV Status: Infusion continued upon transfer rv 22:14 Drug: Octreotide IV 50 mcg IV at bolus once Route: IV; Rate: bolus; Site: right forearm;bp 23:32 Follow up: Response: No adverse reaction rv Medication: 21:38 VIS not applicable for this client. rv 08/28 01:50 Blood products: PRBCs X 2 units given. See transfusion record. rv Intake: 08/27 23:32 IV: 1000ml; Total: 1000ml. rv Outcome: 22:59 ER care complete, transfer ordered by MD. torres 08/28 01:50 Transferred by ground EMS to [facility], Transfer form rv completed. X-rays sent w/ patient. Condition: stable Instructed on the need for transfer, 01:53 Patient left the ED. rv Signatures: Dispatcher [employer] EDMatteo Boyle RN RN bp Vicente, Ronaldo, RN RN rv Kulwant River MD MD sp3 Annabelle Hannon rv1 Corrections: (The following items were deleted from the chart) 08/27 23:23 23:10 Pt family is requesting pt be transferred to either [facility] or [place] [address] facilities. rv1
--- NOTE | 2023-08-27 23:00 | EDPHYS ---
Physician Documentation [facility] Name: Miguel Baxter Age: 78 yrs Sex: Male : 1945 Arrival Date: 08/27/2023 Time: 21:24 Bed 2 Private MD: ED Physician Kulwant River HPI: 08/27 22:15 This 78 yrs old Male presents to ER via EMS with complaints of vomiting blood and dark sp3 stools. 22:15 78-year-old male with a history of prior peptic ulcer disease status post upper GI and sp3 lower GI secondary to extensive GI bleeding history, CVA, diabetes, hyperlipidemia, hypertension currently on Plavix now presents to the ED for chief complaint coffee-ground emesis and melena for the last 48 hours. Patient has had multiple episodes of coffee-ground emesis today prompting family to activate EMS and bring him to the ED. He was just discharged from [facility] and [facility] for similar symptoms where he had his procedures and interventions performed. He denies bleeding from any other sites. On review of systems, he denies headache, fever, URI symptoms, chest pain, shortness of breath, back pain, rash, syncope, near syncope, any other signs or symptoms at this time.. Historical: - Allergies: 21:28 Iodine; rv 21:28 PENICILLINS; rv - PMHx: 21:28 CHF; CVA; Diabetes; High Cholesterol; Hypertension; tumor; rv - PSHx: 21:28 Stented artery; rv - Immunization history:: Adult Immunizations up to date. - Social history:: Smoking status: unknown. ROS: 22:17 Constitutional: Negative for fever, chills, and weight loss, Eyes: Negative for injury, sp3 pain, redness, and discharge, ENT: Negative for injury, pain, and discharge, Neck: Negative for injury, pain, and swelling, Cardiovascular: Negative for chest pain, palpitations, and edema, Respiratory: Negative for shortness of breath, cough, wheezing, and pleuritic chest pain, Back: Negative for injury and pain, MS/Extremity: Negative for injury and deformity, Skin: Negative for injury, rash, and discoloration, Neuro: Negative for headache, weakness, numbness, tingling, and seizure, Psych: Negative for depression, anxiety, suicide ideation, homicidal ideation, and hallucinations, Allergy/Immunology: Negative for hives, rash, and allergies, Endocrine: Negative for neck swelling, polydipsia, polyuria, polyphagia, and marked weight changes, Hematologic/Lymphatic: Negative for swollen nodes, abnormal bleeding, and unusual bruising, 22:17 All other systems are negative, Exam: 22:18 Constitutional: This is a well developed, well nourished patient who is awake, alert, sp3 and in no acute distress. Head/Face: Normocephalic, atraumatic. Eyes: Pupils equal round and reactive to light, extra-ocular motions intact. Lids and lashes normal. Conjunctiva and sclera are non-icteric and not injected. Cornea within normal limits. Periorbital areas with no swelling, redness, or edema. Neck: Trachea midline, no thyromegaly or masses palpated, and no cervical lymphadenopathy. Supple, full range of motion without nuchal rigidity, or vertebral point tenderness. No Meningismus. Chest/axilla: Normal chest wall appearance and motion. Nontender with no deformity. No lesions are appreciated. Cardiovascular: Regular rate and rhythm with a normal S1 and S2. No gallops, murmurs, or rubs. Normal PMI, no JVD. No pulse deficits. Respiratory: Lungs have equal breath sounds bilaterally, clear to auscultation and percussion. No rales, rhonchi or wheezes noted. No increased work of breathing, no retractions or nasal flaring. Back: No spinal tenderness. No costovertebral tenderness. Full range of motion. Skin: Warm, dry with normal turgor. Normal color with no rashes, no lesions, and no evidence of cellulitis. MS/ Extremity: Pulses equal, no cyanosis. Neurovascular intact. Full, normal range of motion. Neuro: Awake and alert, GCS 15, oriented to person, place, time, and situation. Cranial nerves II-XII grossly intact. Motor strength 5/5 in all extremities. Sensory grossly intact. Cerebellar exam normal. Normal gait. Psych: Awake, alert, with orientation to person, place and time. Behavior, mood, and affect are within normal limits. 22:18 Abdomen/GI: Abdomen is soft nontender nondistended with no pain on palpation., 22:18 Skin: Skin is pale.. 22:18 ECG was reviewed by the Attending Physician. EKG demonstrates normal sinus rhythm at 70 sp3 bpm with first-degree AV block at 208 ms with early repolarization pattern and old Q waves inferiorly with QTc prolongation at [address]/T changes without evidence of acute ischemia. Vital Signs: 21:26 BP 118 / 66; Pulse 70; Resp 17; Temp 98; Pulse Ox 100% on R/A; Weight 51.26 kg; Height rv 5 ft. 9 in. ; 22:34 BP 130 / 72; Pulse 75; Resp 15; Pulse Ox 100% ; bp 23:00 BP 137 / 68; Pulse 81; Resp 17; Temp 97.2(TE); Pulse Ox 100% ; rv 23:20 BP 105 / 71; Pulse 75; Resp 16; Temp 98(TE); Pulse Ox 100% on R/A; rv 08/28 00:00 BP 139 / 65; Pulse 74; Resp 18; Pulse Ox 100% on R/A; rv 00:30 BP 120 / 58; Pulse 73; Resp 20; Pulse Ox 100% on R/A; rv 01:00 BP 124 / 73; Pulse 70; Resp 20; Temp 98.2; Pulse Ox 100% on R/A; rv 01:30 BP 121 / 65; Pulse 68; Resp 20; Pulse Ox 99% on R/A; rv 01:45 BP 123 / 67; Pulse 68; Resp 20; Temp 98.1; Pulse Ox 100% ; rv 08/27 21:26 Body Mass Index 16.69 (51.26 kg, 175.26 cm) rv [place] Coma Score: 01:45 Eye Response: spontaneous(4). Motor Response: obeys commands(6). Verbal Response: rv oriented(5). Total: 15. MDM: 08/27 21:31 Patient medically screened. sp3 22:18 Data reviewed: vital signs, nurses notes, old medical records, lab test result(s), EKG, sp3 radiologic studies. 22:19 ED course: 78-year-old male with active GI bleed with coffee-ground emesis and sp3 melanotic stools. Patient has had 2 episodes in the ED. Hemoglobin initially is 7.2 and we have ordered 2 units of PRBCs. Consider platelet transfusion as well. Patient would like to be transferred back to [facility] for further intervention. Remainder of labs are pending. CT scan of the abdomen pelvis noncontrast due to iodine allergy demonstrates no significant abnormality. Vital signs remained stable and patient is NPO. Protonix bolus plus drip as well as octreotide bolus plus drip has been started as well. Patient has no history of varices.. 22:21 ED course: WBC count 21,000 however I do not see any obvious infection. We will hold [facility] antibiotics given all of the remaining medications he is receiving along with the blood. Inpatient team can add antibiotics as they deem necessary. BUN is expectedly elevated. Remainder of chemistries show no significant abnormality with exception of potassium at 3.2. Again we will hold on correcting any of those and focus on prior to meds at this time. We will initiate transfer at this point.. 22:52 ED course: We are attempting to transfer patient to another [facility] facility through the [facility] transfer center. [facility] has no beds at the moment. Have contacted Dr. Magdaleno our GI on-call physician who states that our facility does not have the tools required to likely treat this patient. He therefore recommends transfer. Worst-case if we are unable to transfer we will try a different facility and he states that he will see the patient here as long as the family understands the risks associated. I spoken to the family and they are okay with his transferring to another [facility] facility if possible. I will update the medical record once final disposition is identified.. 22:58 ED course: Spoke with Dr. Jang who has graciously excepted this patient at [address] 08/27 21:33 Order name: Type And Screen [facility] 08/27 21:33 Order name: CBC with Diff [facility] 08/27 21:33 Order name: CMP; Complete Time: 22:21 [facility] 08/27 21:33 Order name: Lipase; Complete Time: 22:21 [facility] 08/27 21:33 Order name: Troponin High Sensitivity; Complete Time: 22:21 [facility] 08/27 22:33 Order name: Packed RBC Leukored EDAK 08/28 00:18 Order name: Manual Differential EDAK 08/27 21:34 Order name: CT Abd/Pelvis - Without Contrast; Complete Time: 22:06 [facility] 08/27 21:33 Order name: EKG; Complete Time: 21:34 [facility] 08/27 21:33 Order name: IV Saline Lock; Complete Time: 21:39 sp3 08/27 21:33 Order name: Labs collected and sent; Complete Time: 21:39 sp3 08/27 21:33 Order name: EKG - Nurse/Tech; Complete Time: 21:39 sp3 08/27 21:33 Order name: NPO; Complete Time: 21:39 sp3 08/27 22:15 Order name: Transfuse: 2 units PRBCs; Complete Time: 00:00 sp3 Administered Medications: 22:14 Drug: NS 0.9% IV 1000 ml IV at 1 bolus Per protocol; 1000 mL bolus Route: IV; Rate: 1 bp bolus; Site: left forearm; 23:32 Follow up: IV Status: Completed infusion; IV Intake: 1000ml rv 22:14 Drug: Pantoprazole IV 8 mg/hr IV at 25 ml/hr continuous; (Standard dilution is 80 mg in bp 250 mL NS) Route: IV; Rate: 25 ml/hr; Site: left forearm; 23:32 Follow up: IV Status: Infusion continued upon transfer rv 22:14 Drug: Pantoprazole IVP 40 mg IVP once Route: IVP; Site: left forearm; bp 23:32 Follow up: Response: No adverse reaction rv 22:14 Drug: Octreotide Infusion (50 mcg/hr) - (Octreotide IV 500 mcg, NS 0.9% IV 500 ml) IV bp at 50 ml/hr continuous Route: IV; Rate: 50 ml/hr; Site: right forearm; 23:32 Follow up: IV Status: Infusion continued upon transfer rv 22:14 Drug: Octreotide IV 50 mcg IV at bolus once Route: IV; Rate: bolus; Site: right forearm;bp 23:32 Follow up: Response: No adverse reaction rv Disposition Summary: 08/27/23 22:59 Transfer Ordered Notes: Transfer Location: Other Acute Care Facility sp3 Reason: Higher level of care sp3 Condition: Stable sp3 Problem: an acute exacerbation sp3 Symptoms: have worsened sp3 Accepting Physician: Dr. Jang(08/28/23 01:53) rv Diagnosis - Upper GI bleed, anemia, leukocytosis of unknown etiology sp3 Forms: - Medication Reconciliation Form sp3 - SBAR form sp3 Signatures: Dispatcher [employer] EDMatteo Boyle RN RN Shree Cisse RN RN rv Kulwant River MD MD sp3 Corrections: (The following items were deleted from the chart) 21:49 21:34 Abdomen Pelvis W Con+CT.RAD.BRZ ordered. EDMS EDMS :32 22:15 PACKED RBC LEUKORED+BB.LAB.BRZ ordered. EDMS EDMS : 22:17 ABO/RH typing ordered. EDMS EDMS : 22:17 Antibody Screen ordered. EDMS EDMS 08/28 00:18 08/27 22:08 CBC Smear Scan ordered. EDMS EDMS 08/28 01:53 08/27 22:59 Dr. Jang sp3 rv
[2023-08-28 00:19] LABS: Blood Morphology Comment NOT SEEN (NOT SEEN); Platelet Estimate ADEQ
[2023-08-28] MEDS ORDERED: NA CHLORIDE 0.9% 250 ML ONE (01:40)
[2023-08-28 02:34] VITALS: BP 123/67; TEMP 98.1; O2SAT 100
--- NOTE | 2023-08-28 16:37 | EKG ---
Test Date: 2023-08-27 Test Time: 21:40:50 [employer]: TEENA MEASUREMENT RESULTS: Intervals: Rate: 70 ID: [id number] QRSD: 98 QT: 510 QTc: 550 [place]: P: 92 ID: [id number] QRS: -77 T: 80 INTERPRETIVE STATEMENTS: Normal sinus rhythm Left axis deviation Inferior infarct, age undetermined Anterior infarct, age undetermined Prolonged QT Abnormal ECG Compared to ECG 08/11/2023 19:59:53 Left-axis deviation now present Prolonged QT interval now present First degree AV block no longer present Left anterior fascicular block no longer present Myocardial infarct finding still present Electronically Signed On 08-28-23 16:37:21 CDT by Shawn Norton
== END 2023-08-28 01:53 ==
LOC: ER 21:24
PROC: 30233N1 Transfusion of Nonautologous Red Blood Cells into Peripheral Vein, Percutaneous Approach (ICD-10-PCS; principal; 2023-08-28)
DX: D64.9 Anemia, unspecified (principal); D72.829 Elevated white blood cell count, unspecified; E11.9 Type 2 diabetes mellitus without complications; I10 Essential (primary) hypertension; I50.9 Heart failure, unspecified; Z88.0 Allergy status to penicillin; Z91.048 Other nonmedicinal substance allergy status
CPT/HCPCS: 93005; 85025; 36415; 86900; 86850; 86901; 86920 ×2; 84484; 83690; 80053; 74176; 36430; J2354 ×2; C9113; P9016 ×2; J7050 ×3; J7040; J7030; 99285

== ENCOUNTER 2023-09-12 12:06 | Emergency (ER) | payer OTHER ==
--- OUTSIDE RECORDS SUMMARY | 2023-09-12 12:18 | XMS REPORT | Continuity of Care Document ---
:1945 Author Organization [facility] t Address [address] [place] [address] [address] [place] [address] Care Team Providers Name Role Phone FAHAD AMARAL Primary Care Physician Unavailable RICCARDO PARKER Attending Clinician Unavail able TYRON ALVARADO Attending Clinician Unavailable TAYLOR CISNEROS Attending Clinician Unavailable ABILIO HERNANDEZ Attending Clinician Unavailable LEE PETTIT Attending Clinician Unavailable BERNABE PETTIT Attending Clinician Unavailable JOSE JUAN MARTINEZ Attending Clinician Unavailable BEATRIZ ACOSTA Attending Clinician Unavailable Grace Desai RN Attending Clinician Peace Art MD Attending Clinician Kiesha Escudero MD Attending Clinician Jian Whitfield MD Attending Clinician Paulie Arredondo MD Attending Clinician PEACE ART Attending Clinician Unavailable Sivakumar Amador MD Attending Clinician Olegario Hurd MD Attending Clinician Velasquez Mendoza MD Attending Clinician JORDIN OSWALD Attending Clinician Unavailable NAHID SIERRA Attending Clinician Unavailable Heydi Castaneda MD Attending Clinician Jenny RIGGS, Tyron Csineros Attending Clinician Juan RIGGS, Jose Juan Cosby Attending Clinician Suzy RIGGS, Rosalina Cruz Attending Clinician Abilio Hernandez MD Attending Clinician Parvez Pederson MD Attending Clinician Lachelle RIGGS, Blayne Marmolejo Attending Clinician Lee Pettit MD Attending Clinician KEITH, ROSALINA-ALFIE SHAH Admitting Clinician Unavail able TYRON ALVARADO Admitting Clinician Unavailable JOSE JUAN MARTINEZ Admitting Clinician Unavailable Peace Art MD Admitting Clinician PEACE ART Admitting Clinician Unavailable Payers Payer Name Policy Type Policy Number Effective Date Expiration Date Antoni Corrales CNTRL [place] NTWK [id number] 2023 00:00:00 MEDICARE A B [id number] 2011 00:00:00 Problems Condition Condition Condition Status Onset Resolution Last Treating Co mments Source Name Details Category Date Date Treatment Clinician Date 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 00:00: [place] without without 00 Medical rupture rupture Branch UGIB UGIB Disease Recurre 2022-11 Univers (upper (upper nce 0-04 ity of gastrointe gastrointe 00:00[place] stinal stinal 00 Medical bleed) bleed) Branch Hematemesi Hematemesi Disease Active U nivers s s 9-18 ity of 00:00: [place] 00 Medical Branch Upper GI Upper GI Disease Active Unive rs bleed bleed 18 ity of 00:00: Medical Branch Urinary Urinary Disease Active [facility] retention retention 07-23 [facility] 00:[facility]: Medical 00 Center Other Other Disease Active [facility] constipati constipati 07-23 Bird[facility] kes on on 00:00: Medical 00 Center Acute Acute Disease Active Univers metabolic metabolic 07-23 ity of encephalop encephalop 00:[place] athy athy 00 Medical Branch Acute Acute Disease Active [facility] post-opera post-opera 07-17 Birdie kes tive pain tive pain 00:00: Medi matt 00 Center History of History of Disease Active [facility] rheumatic rheumatic 07-17 [facility] heart heart 00:00: Medical disease disease 00 Center 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, is, 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 00:00: Me dical d type d type 00 Center Hyperglyce Hyperglyce Disease Active [facility] yajaira yajaira 07-17 [facility] 00:00: Medical 00 Center History of History of Disease Active U mary kay AAA AAA 8- ity of (abdominal (abdominal 00:00[place] aortic aortic 00 Medical aneurysm) aneurysm) Bran ch repair repair Mixed Mixed Disease Active Univers hyperlipid hyperlipid 8 it y of emia emia 00:00: [place] 00 Medical Branch Acute Acute Disease Active Univers blood loss blood loss 8- it y of anemia anemia 00:00: [place] 00 Medical Branch 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 00:00: Medica l 00 Center Essential Essential Disease Active [facility] hypertensi hypertensi 8-15 Birdie kes on on 00:00: Medical 00 Center Peripheral Peripheral Disease Recurre [facility] arterial arterial nce 8-15 [facility] disease disease 00:00: Medical 00 Center 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 00:00: Medical artery artery 00 Center Hypertensi Hypertensi Disease Active [facility] on with on with 8-15 [facility] goal to be goal to be 00:00: Me dical determined determined 00 Ce nter History of History of Disease Active [facility] aorto-femo aorto-femo 8-15 Birdie kes ral bypass ral bypass 00:00: Me dical 00 [place] Tobacco Tobacco Disease Active Univers use use 8-15 ity of disorder disorder 00:00: [place] 00 Medical Branch Acute Acute Disease Active Univers cerebrovas cerebrovas 8-15 it y of cular cular 00:00: [place] accident accident 00 Medica l of of Branch cerebellum cerebellum Femoral Femoral Disease Resolve 2023-07-10 2023-07-10 [facility] [...] 8-15 [facility] CONTAINI 00:00: Medical NG 00 [place] PRODUCTS PENICILL Allergy Active Other [facility] IN 8-15 [facility] 00:00: Medical 00 Center Penicill Drug Active Other (See Stated [facility] in Allergy Comments) 8-15 childhood Naty es 00:00: allergy - Medical 00 tolerates Center cephalosp orins Shellfis Drug Active Anaphylaxis [facility] Allergy 07-09 [facility] Containi 00:00: Medical 00 Center Products PENICILL DRUG Active Dizziness Unive rs IN INGREDI 07-13 ity of 00:00: [place] 00 Medical Branch Penicill Drug Active Anaphylaxis Stated Uni vers in Allergy 07-13 childhood ity of 00:00: allergy - [place] 00 tolerates Medical cephalosp Branch orins Family History Family Member Diagnosis Comments Start Date Stop Date Source Natural father Heart attack [facility] Natural mother Thyroid disease [facility] S t [facility] Social History Social Habit Start Date Stop Date Quantity Comments Source [facility] of tobacco Cigarette Smoker University of use [facility] History [facility] Transport Non-Med [facility] Alcohol intake 2023-08-29 2023-08-29 Ex-drinker [facility] 00:00:00 00:00:00 (finding) [facility] History of Social 2023-08-28 2023-08-28 Univers ity of function 00:00:00 00:00:00 [facility] Tobacco use and 2023-08-28 2023-08-28 Smokeless Universit y of exposure 00:00:00 00:00:00 tobacco non-user [facility] dical Branch History [facility] 2023-07-10 2023-07-[address] [facility] Transport Med 00:00:00 00:00:[address] History [facility] 2023-07-10 2023-07-[address] [facility] Housing Unable to 00:00:00 00:00:00 Medical Center Pay History [facility] 2023-07-10 2023-07-[address] [facility] Housing Places 00:00:00 00:00:00 Medical Ce nter Lived History [facility] 2023-07-10 2023-07-[address] [facility] Housing Homeless 00:00:00 00:00:00 Medical Center Last Year Exposure to 2023-06-29 2023-07-[address] [facility] SARS-CoV-2 (event) 00:00:00 23:10:00 [facility] Cigarettes smoked 2023-07-09 2023-07-[address] [facility] current (pack per 00:00:00 00:00:00 [facility] Center day) - Reported Cigarette 2023-07-09 2023-07-09 [facility] pack-years 00:00:00 00:00:00 [facility] Sex [birth year] Universit y of 00:00:00 00:00:00 [facility] Smoking Status Start Date Stop Date Source Ex-smoker 2023-08-28 00:00:2023-08-28 00:00:00 [facility] Smokes tobacco daily 2023-07-09 00:00:00 [facility] Medications Ordered Filled Start Stop Current Ordering Indication Dosage Frequency Signature Comments Components Source Medication Medication Date Date Medication? Clinician (SIG) Name Name carvediloL 2022-11 Yes 6.25mg Take 1 Uni vers 6.25 mg 0-12 tablet by ity of tablet 00:00: mouth in [place] the morning Branch and 1 tablet in the evening. Take with meals. isosorbide 2022-11 Yes 30mg Take 1 Unive rs mononitrate 0-12 tablet by ity of 30 mg 24 hr 00:00: [place] in [place] tablet the Medical morning. Branch lisinopriL 2022-11 Yes 10mg Take 1 Unive rs 10 mg 0-12 tablet by ity of tablet 00:00: mouth in [place] the Medical morning. Branch spironolact 2022-11 Yes 12.5mg Take 0.5 Univers one 25 mg 0-12 tablets by ity of tablet 00:00: mouth in [place] the Medical morning. Branch polyethylen 2022-11 Yes 17g Take 1 Univ ers e glycol 0-12 Packet by ity of 3350 17 00:00: mouth in [place] gram powder 00 the Medical morning. Branch carvediloL 2022-11 Yes 6.25mg Take 1 Uni vers 6.25 mg 0-12 tablet by ity of tablet 00:00: mouth in [place] the Medical morning Branch and 1 tablet in the evening. Take with meals. isosorbide 2022-11 Yes 30mg Take 1 Unive rs mononitrate 0-12 tablet by ity of 30 mg 24 hr 00:00: mouth in [place] tablet the Medical morning. Branch lisinopriL 2022-11 Yes 10mg Take 1 Unive rs 10 mg 0-12 tablet by ity of tablet 00:00: mouth in [place] the Medical morning. Branch spironolact 2022-11 Yes 12.5mg Take 0.5 Univers one 25 mg 0-12 tablets by ity of tablet 00:00: mouth in [place] the morning. Branch polyethylen 2022-11 Yes 17g Take 1 Univ ers e glycol 0-12 Packet by ity of 3350 17 00:00: mouth in [place] gram powder 00 the Medical morning. Branch foLIC acid 2022-11 Yes 1mg Take 1 Unive rs 1 mg tablet 0-11 tablet by ity of 19:42: mouth. [address] thiamine 2022-11 Yes 100mg Take 1 Univer s 100 mg 0-11 tablet by ity of tablet 19:42: mouth. [address] foLIC acid 2022-11 Yes 1mg Take 1 Unive rs 1 mg tablet 0-11 tablet by ity of 19:42: mouth. [address] thiamine 2022-11 Yes 100mg Take 1 Univer s 100 mg 0-11 tablet by ity of tablet 19:42: mouth. [address] clopidogreL 2022-11- No 75mg Take 1 Uni vers 75 mg 0-11 10-11 tablet by ity of tablet 19:42: 00:00 mouth. [place] 48 :00 [facility] topiramate 2022-11- No 25mg Take 1 Univ ers 25 mg 0-11 10-11 capsule by ity of SPRINKLE 19:42: 00:00 mouth. [place] capsule 48 :00 [facility] hydrALAZINE 2022-11 Yes 10mg 10 mg, Univ ers (APRESOLINE 0-11 Oral, Q8H, it y of ) tablet 10 19:00: First dose [place] mg 00 (after Medical last Branch reorder) on Sat09/04/23 at 1400, Until Discontinu ed, Routine multivitami 2022-11 Yes 15mL 15 mL, Univ ers n oral 0-11 Oral, ity of solution 15 15:30: DAILY, [place] mL 00 First dose Medical on Sat [place] 09/04/23 at 1030, Until Discontinu ed, Routine spironolact 2022-11 Yes 12.5mg 12.5 mg, Univers one 0-11 Oral, ity of (ALDACTONE) 14:00: DAILY, [place] tablet 12.5 00 First dose Me dical mg on Sat Branch 09/04/23 at 0900, Until Discontinu ed, Routine polyethylen 2022-11 Yes 17g 17 g, Unive rs e glycol 0-11 Oral, ity of 3350 powder 14:00: DAILY, [place] 17 g 00 First dose Medical (after Branch last modificati on) on Sat09/04/23 at 0900, Until Discontinu ed, Routine carvediloL 2022-11 Yes 6.25mg 6.25 mg, U nivers (COREG) 0-11 Oral, BID ity of tablet 6.25 13:00: MEALS, [place] mg 00 First dose Medical (after Branch last modificati on) on Sat09/04/23 at 0800, Until Discontinu ed, Routine hydrALAZINE 2022-11 Yes 10mg Take 1 Univ ers 10 mg 0-11 tablet by ity of tablet 00:00: mouth [place] 00 every 8 Medical (eight) Branch hours. omeprazole 2022-11 Yes 40mg Take 1 Unive rs 40 mg 0-11 capsule by ity of capsule 00:00: mouth in [place] 00 the Medical morning Branch and 1 capsule in the evening. nitroglycer 2022-[address] 1 Uni vers in 0.4 mg 0-11 tablet ity of sublingual 00:00: under the [place] tablet 00 tongue Medical every 5 Branch (five) minutes as needed for Chest pain. hydrALAZINE 2022-11 Yes 10mg Take 1 Univ ers 10 mg 0-11 tablet by ity of tablet 00:00: mouth [place] 00 every 8 Medical (eight) Branch hours. omeprazole 2022-11 Yes 40mg Take 1 Unive rs 40 mg 0-11 capsule by ity of capsule 00:00: mouth in [place] 00 the Medical morning Branch and 1 capsule in the evening. nitroglycer 2022-[address] 1 Uni vers in 0.4 mg 0-11 tablet ity of sublingual 00:00: under the [place] tablet 00 tongue Medical every 5 Branch (five) minutes as needed for Chest pain. NaCl 0.9% 2022-11- No 500mL at 100 Univ ers (NS) IV 0-11 10-11 mL/hr, IV ity of infusion 00:00: 00:41 Infusion, [place] as 500 mL 00 :00 ONCE, 1 Medical dose, On [facility] 09/03/23 at 1900, Routine KCL 20 2022-11 No 40meq 40 mEq, Univer s mEq/15 mL 0-10 10-10 Oral, ity of solution 40 17:45: 18:57 ONCE, 1 [place] mEq 00 :00 dose, On Medical [facility] 09/03/23 at 1245, Routine lisinopriL 2022-11 Yes 10mg 10 mg, Unive rs (PRINIVIL,Z 0-10 Oral, ity of ESTRIL) 14:00: DAILY, [place] tablet 10 00 First dose Medi matt mg on [facility] 09/03/23 at 0900, Until Discontinu ed, Routine lisinopriL 2022-11 Yes 10mg 10 mg, Unive rs (PRINIVIL,Z 0-10 Oral, ity of ESTRIL) 14:00: DAILY, [place] tablet 10 00 First dose Medi matt mg on [facility] 09/03/23 at 0900, Until Discontinu ed, Routine carvediloL 2022-11 Yes 6.25mg 6.25 mg, U nivers (COREG) 0-10 Oral, BID ity of tablet 6.25 13:00: MEALS, [place] mg 00 First dose Medical on [facility] 09/03/23 at 0800, Until Discontinu ed, Routine omeprazole 2022-11 Yes 40mg 40 mg, Unive rs (PRILOSEC) 0-10 Oral, BID, ity of capsule 40 13:00: First dose [place] mg 00 on [facility] 09/03/23 Branch at 0800, Until Discontinu ed, Routine carvediloL 2022-11 No 6.25mg 6.25 mg, Univers (COREG) 0-10 10-10 Oral, BID ity of tablet 6.25 13:00: 18:52 MEALS, [place] mg 00 :32 First dose Medical on [facility] 09/03/23 at 0800, Until Discontinu ed, Routine hydralAZINE 2022-11 No 20mg 20 mg, Uni vers (APRESOLINE 0-10 10-10 Slow IV ity of ) injection 05:37: 05:51 Push, [place] 20 mg 00 :00 ONCE, 1 Medical dose, On Branch 09/03/23 at 0045, STAT pantoprazol 2022-11 No 40mg 40 mg, Uni vers e 0-10 10-10 Slow IV ity of (PROTONIX) 01:00: 02:40 Push, BID, [place] injection 00 :00 1 dose, Medical 40 mg First dose Branch (after last modificati on) on [facility] 09/02/23 at 1999 polyethylen 2022-11 No 17g 17 g, Univ ers e glycol 0-10 10-10 Oral, TID, ity of 3350 powder 01:00: 19:52 First dose [place] 17 g 00 :19 on [facility] 09/02/23 at Branch 1999, Until Discontinu ed, Routine potassium 2022-11 No 20meq 20 mEq, IV Univers chloride in 0- Piggyback, i ty of water (KCL) 16:00: 17:57 ONCE, 1 [place] 20 mEq/100 00 :00 dose, On Medic al mL RTU IVPB [facility] 20 mEq 09/02/23 at 1100, 100 mL clopidogreL 2022-11 Yes 75mg 75 mg, Univ ers (PLAVIX) 75 0-09 Oral, ity of mg tablet 14:00: DAILY, [place] 75 mg 00 First dose Medical on [facility] 09/02/23 at 0900, Until Discontinu ed, Routine clopidogreL 2022-11 No 75mg 75 mg, Uni vers (PLAVIX) 75 0-11 Oral, ity of mg tablet 14:00: 16:49 DAILY, [place] 75 mg 00 :58 First dose Medical on [facility] 09/02/23 at 0900, Until Discontinu ed, Routine KCL 20 2022-11 No 40meq 40 mEq, Univer s mEq/15 mL 0- Oral, ity of solution 40 12:15: 11:32 ONCE, 1 [place] mEq 00 :00 dose, On Medical [facility] 09/02/23 at 0715, Routine clopidogreL 2022-11 Yes 75mg Take 1 Univ ers 75 mg 0-09 tablet by ity of tablet 11:39: mouth. [address] foLIC acid 2022-11 Yes 1mg Take 1 Unive rs 1 mg tablet 0-09 tablet by ity of 11:39: mouth. [address] thiamine 2022-11 Yes 100mg Take 1 Univer s 100 mg 0-09 tablet by ity of tablet 11:39: mouth. [address] topiramate 2022-11 Yes 25mg Take 1 Unive rs 25 mg 0-09 capsule by ity of SPRINKLE 11:39: mouth. [address] potassium 2022-11- No 40meq 40 mEq, Uni vers chloride 40 009-02 Intravenou i ty of mEq in 100 11:30: 15:33 s, ONCE, 1 [place] mL IVPB 00 :00 dose, On [facility] 09/02/23 at 0630, 100 mL clopidogreL 2022-11 No 300mg 300 mg, U nivers (PLAVIX) 009-02 Oral, ity of 300 mg 04:45: 04:12 ONCE, 1 [place] tablet 300 00 :00 dose, On Medic al mg [facility] 09/01/23 at 2345, Routine potassium 2022-11 No 20meq 20 mEq, IV Univers chloride in 0-07 04-08 Piggyback, i ty of water (KCL) 11:00: 13:03 ONCE, 1 [place] 20 mEq/100 00 :00 dose, On Medic al mL RTU IVPB [facility] 20 mEq 09/01/23 at 0600, 100 mL potassium 2022-11 No 20meq 20 mEq, IV Univers chloride in 0-08 Piggyback, i ty of water (KCL) 02:30: 04:26 ONCE, 1 [place] 20 mEq/100 00 :00 dose, On Medic al mL RTU IVPB [facility] 20 mEq 08/31/23 at 2130, 100 mL melatonin 2022-11 Yes 3mg 3 mg, Univers (MELATIN) 0-08 Oral, QHS, ity of tablet 3 mg 02:00: First dose on [facility] 08/31/23 at Branch 2100, Until Discontinu ed, Routine melatonin 2022-11 Yes 3mg 3 mg, Univers (MELATIN) 0-08 Oral, QHS, ity of tablet 3 mg 02:00: First dose on [facility] 08/31/23 at Branch 2100, Until Discontinu ed, Routine aspirin 2022-11 Yes 81mg 81 mg, Univers chewable 0-07 Oral, ity of tablet 81 14:00: DAILY, [place] mg 00 First dose Medical on [facility] 08/31/23 at 0900, Until Discontinu ed, Routine aspirin 2022-11 No 81mg 81 mg, Univers chewable 0-07 10-11 Oral, ity of tablet 81 14:00: 16:49 DAILY, [place] mg 00 :58 First dose Medical on [facility] 08/31/23 at 0900, Until Discontinu ed, Routine potassium 2022-11 No 20meq 20 mEq, IV Univers chloride in 0-07 10-07 Piggyback, i ty of water (KCL) 13:00: 17:00 Q2H, 2 [place] 20 mEq/100 00 :00 doses, Medical mL RTU IVPB First dose Br anch 20 mEq on [facility] 08/31/23 at 0800, Last dose on [facility] 08/31/23 at 1000, 100 mL KCL 2022-11 No 40meq 40 mEq, Univers (KLOR-CON 0-07 10-07 Oral, Q2H, ity of M20) tablet 11:15: 14:51 2 doses, [place] 40 mEq 00 :00 First dose Medical on [facility] 08/31/23 at 0615, Last dose on [facility] 08/31/23 at 0800, Routine HEPARIN 2022-11- No 60U/kg 3,156 Univer s SODIUM 0-07 10-07 Units (60 ity of (PORCINE) 03:45: 03:57 Units/kg [place] 1,000 00 :00 ?52.6 kg), Medical UNIT/ML IV Push, Branch BOLUS ACS ONCE, 1 ORDER SET dose, On Sat08/30/23 at 2245, JERMAN heparin 2022-11 No 0U/h 0-1,600 Univer s 25,000 0-07 10-09 Units/hr ity of Units/250 03:33: 03:47 (0-16 [place] mL 39 :04 mL/hr), IV Medical (Premixed Infusion, Branc h Bag) in D5W TITRATE, Parameters in Admin. Instr., Starting on Sat08/30/23 at 2233
In itiate dosing:&nb sp; & nbsp;&nbsp ; -Patient 83 kg or under: 650 Units/hr (Calculate d dose at 12 units/kg/h r) &n bsp; &nbs p; -Patient over 83 k,000 units/hr&n bsp;DO NOT Exceed the MAXIMUM 1,000 units/hr for initiation of heparin drip.&nbsp ; CAU TION - If LMWH given in ER, AVOID bolus and start next dose/drip 12 hrs after ER dosage.&nb sp; M ust program rate using programmab le infusion pump.&nbsp ; Jillian ck with the ordering provider first prior to any administra tion should the patient be on existing/a dditional anticoagul ant therapy.&n bsp; Range, Dosing and Testing&nb sp; - aPTT < 40: & nbsp;Bolus 3000 units, increase rate 100 units/hr.& nbsp;- aPTT 40-49:&nbs p; In crease rate 50 units/hr. - aPTT 50-70:&amp ;nbsp;&nbs p;NO CHANGE.&nb sp;- aPTT 71-85:&nbs p; De crease rate 50 units/hr.& amp;nbsp;- aPTT 86-100:&nb sp; H old 30 minutes, decrease rate 100 units/hr.& nbsp;- aPTT 101-150:&n bsp; Hold 60 minutes, decrease rate 150 units/hr.& nbsp;- aPTT > 150: Hold 60 minutes, decrease rate 300 units/hr.& nbsp;&nbsp ;Check aPTT 6 hours after initiation , then Q6H after every change, aPTT Q12H once therapeuti c levels are reached.&a mp;nbsp;&n bsp;DO NOT ADJUST INITIAL BOLUS OR INITIAL INFUSION RATE.
heparin 2022-11- No 3000U FOR Univers (1,000 0-07 10-09 REBOLUSING ity of unit/mL, 10 03:33: 14:02 , Starting [place] mL vial) 32 :07 on Sat for 08/30/23 at Branch Rebolusing 2233, Until Sat09/02/23 at 0902, Routine
Dosing based on aPPT testing parameters (refer to continuous heparin drip order).
hydrALAZINE 2022-11 Yes 20mg 20 mg, Univ ers (APRESOLINE 0-07 Oral, Q8H, it y of ) tablet 20 03:00: First dose [place] mg 00 (after Medical last Branch modificati on) on Sat08/30/23 at 2200, Until Discontinu ed, Routine hydrALAZINE 2022-11- No 20mg 20 mg, Uni vers (APRESOLINE 0-07 10-10 Oral, Q8H, i ty of ) tablet 20 03:00: 18:52 First dose [place] mg 00 :32 (after Medical last Branch modificati on) on Sat08/30/23 at 2200, Until Discontinu ed, Routine iohexol 2022-11- No ONCE INTRA Uni vers (OMNIPAQUE 0-07 08-31 PROCEDURE, it y of 300-100 mL) 01:07: 01:11 Starting [place] injection 51 :24 on Sat08/30/23 at Branch 2006, Until Sat08/30/23 at 2010, Routine, CV Intraproce dure pantoprazol 2022-11 Yes 40mg 40 mg, Univ ers e 0-07 Slow IV ity of (PROTONIX) 01:00: Push, BID, [place] injection 00 First dose Medi matt 40 mg on Sat [place] 08/30/23 at 1999, Until Discontinu ed pantoprazol 2022-11- No 40mg 40 mg, Uni vers e 0-07 1009 Slow IV ity of (PROTONIX) 01:00: 23:28 Push, BID, [place] injection 00 :34 First dose Medi matt 40 mg on Sat [place] 08/30/23 at 1999, Until Discontinu ed aspirin 2022-11- No ONCE INTRA Uni vers tablet 0-07 1007 PROCEDURE, ity of 00:58: 01:11 Starting [place] 09 :24 on Sat [facility] 08/30/23 at Branch 1957, Until Sat08/30/23 at 2010, Routine, CV Intraproce dure lidocaine 2022-11- No ONCE INTRA U nivers 1% (PF) 008-31 PROCEDURE, ity o f (XYLOCAINE) 23:29: 01:11 Starting [place] injection 45 :24 on Sat08/30/23 at Branch 1829, Until Sat08/30/23 at 2010, Routine, CV Intraproce dure midazolam 2022-11- No ONCE INTRA U nivers (VERSED) 008-31 PROCEDURE, ity of injection 23:26: 01:11 Starting [place] 00 :24 on Sat08/30/23 at Branch 1826, Until Sat08/30/23 at 2010, Routine, CV Intraproce dure FENTanyl PF 2022-11- No ONCE INTRA Univers (SUBLIMAZE 008-31 PROCEDURE, it y of (PF)) 23:25: 01:11 Starting [place] injection 53 :24 on Sat [facility] 08/30/23 at Branch 1825, Until Sat08/30/23 at 2010, Routine, CV Intraproce dure hydralAZINE 2022-11- No ONCE INTRA Univers (APRESOLINE 008-31 PROCEDURE, i ty of ) injection 23:16: 01:11 Starting [place] 52 :24 on Sat [facility] 08/30/23 at Branch 1816, Until Sat08/30/23 at 2010, STAT, CV Intraproce dure clopidogreL 2022-11 Yes 75mg Take 1 Univ ers 75 mg 0-06 tablet by ity of tablet 20:19: mouth. [address] foLIC acid 2022-11 Yes 1mg Take 1 Unive rs 1 mg tablet 0-06 tablet by ity of 20:19: mouth. [address] thiamine 2022-11 Yes 100mg Take 1 Univer s 100 mg 0-06 tablet by ity of tablet 20:19: mouth. [address] topiramate 2022-11 Yes 25mg Take 1 Unive rs 25 mg 0-06 capsule by ity of SPRINKLE 20:19: mouth. [address] isosorbide 2022-11 Yes 30mg 30 mg, Unive rs mononitrate 0-06 Oral, ity of (IMDUR) 24 17:00: DAILY, [place] hr tablet 00 First dose Medi matt 30 mg on Sat Branch 08/30/23 at 1200, Until Discontinu ed, Routine isosorbide 2022-11 Yes 30mg 30 mg, Unive rs mononitrate 0-06 Oral, ity of (IMDUR) 24 17:00: DAILY, [place] hr tablet 00 First dose Medi matt 30 mg on Sat Branch 08/30/23 at 1200, Until Discontinu ed, Routine metoprolol 2022-11 No 25mg 25 mg, Univ ers tartrate 0-06 -09 Oral, BID, ity of (LOPRESSOR) 17:00: 22:32 First dose [place] tablet 25 00 :04 on Fri Medical mg 08/30/23 at Branch 1200, Until Discontinu ed, Routine sulfur 2022-11 No [id number] 5mL 5 mL, Univ ers hexafluorid 0-08-30 Intravenou i ty of e microsphr 14:45: 14:45 s, ONCE, 1 [place] (LUMASON) 00 :00 dose, On Medica l injection 5 Sat Branch mL 08/30/23 at 0945, Routine
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 : ALBERT BROOKS nitroglycer 2022-11 Yes .4mg 0.4 mg, Uni vers in 0-06 Sublingual ity of (NITROSTAT) 14:38: , Q5MIN [place] as sublingual 06 PRN, Medical tablet 0.4 Starting Branc h mg on Sat08/30/23 at 0938, Until Discontinu ed, Routine, Chest pain nitroglycer 2022-11 Yes .4mg 0.4 mg, Uni vers in 0-06 Sublingual ity of (NITROSTAT) 14:38: , Q5MIN [place] as sublingual 06 PRN, Medical tablet 0.4 Starting Branc h mg on Sat08/30/23 at 0938, Until Discontinu ed, Routine, Chest pain hydrALAZINE 2022-11 No 10mg 10 mg, Uni vers (APRESOLINE 0-06 10-06 Oral, Q8H, i ty of ) tablet 10 13:00: 20:00 First dose [place] mg 00 :33 on Fri Medical 08/30/23 at Branch 0800, Until Discontinu ed, Routine proCHLORper 2022-11 Yes 10mg 10 mg, IV U nivers azine 0-06 Piggyback, ity of (COMPAZINE) 05:50: at 100 [place] 10 mg in 43 mL/hr Medical NaCl 0.9% Administer Bran ch (NS) over 30 piggyback Minutes, Q6HPRN, Starting on Sat08/30/23 at 0050, Until Discontinu ed, Routine, Nausea and Vomiting (N/V) proCHLORper 2022-11 Yes 10mg 10 mg, IV U nivers azine 0-06 Piggyback, ity of (COMPAZINE) 05:50: at 100 [place] 10 mg in 43 mL/hr Medical NaCl 0.9% Administer Bran ch (NS) over 30 piggyback Minutes, Q6HPRN, Starting on Sat08/30/23 at 0050, Until Discontinu ed, Routine, Nausea and Vomiting (N/V) ondansetron 2022-11 Yes 4mg 4 mg, Slow Univers (ZOFRAN 0-06 IV Push, ity of (PF)) 05:04: Q6HPRN, [place] injection 4 11 Nausea and Me dical mg Vomiting Branch (N/V), Starting on Sat08/30/23 at 0004
Do ses of ondansetro n 16 mg and above need to be administer ed via IV piggyback. For Dose >=24mg ECG monitoring is advisable.
ondansetron 2022-11 Yes 4mg 4 mg, Slow Univers (ZOFRAN 0-06 IV Push, ity of (PF)) 05:04: Q6HPRN, [place] injection 4 11 Nausea and Me dical mg Vomiting Branch (N/V), Starting on Sat08/30/23 at 0004
Do ses of ondansetro n 16 mg and above need to be administer ed via IV piggyback. For Dose >=24mg ECG monitoring is advisable.
aspirin 2022-11- No 325mg 325 mg, Unive rs tablet 325 0-06 08-30 Oral, ity of mg 03:00: 02:58 ONCE, 00 :00 dose, On Medical Maureen Branch 08/29/23 at 2200, STAT nitroglycer 2022-11- No 5ug/min 5-200 U nivers in 50 mg in 0-05 04-06 mcg/min ity of D5W 250 mL 01:19: 20:32 (1.5-60 [place] as infusion 07 :00 mL/hr), IV Medic al RTU Infusion, Branch TITRATE, SBP<180, Starting on Maureen 08/29/23 at 2019
Initiate infusion at 5 mcg/min.&n bsp; Titrate by 5 mcg/min every 3 minutes to 5 minutes as needed to achieve and maintain goal blood pressure. Maximum dose = 200 mcg/min. If goal not maintained at maximum allowed dose, contact prescriber .
potassium 2022-11- No 20meq 20 mEq, IV Univers chloride in 0- Piggyback, i ty of water (KCL) 01:00: 09:33 Q2H, 4 [place] as 20 mEq/100 00 :00 doses, Medical mL RTU IVPB First dose Br anch 20 mEq on Maureen 08/29/23 at 2000, Last dose on Sat08/30/23 at 0200, 100 mL KCL 20 2022-11- No 40meq 40 mEq, Univer s mEq/15 mL 0-08-30 Oral, ity of solution 40 00:30: 01:15 ONCE, 1 [place] mEq 00 :00 dose, On [facility] 08/29/23 at 1930, Routine iopamidol 2022-11- No [id number] 100mL 100 mL, Univers (ISOVUE 0-05 10-05 Intravenou ity o f 300-100 mL) 23:18: 23:22 s, ONCE, 1 [place] injection 00 :00 dose, On Medica l 100 mL Maureen [place] 08/29/23 at 1830, Routine hydralAZINE 2022-11- No PRN, Unive rs (APRESOLINE 0-05 10-05 Starting ity of ) injection 21:38: 21:41 on [place] Rick as 53 :18 08/29/23 at [facility] 1638, Branch Until Discontinu ed, STAT, Intra-op ondansetron 2022-11- No Slow IV Un chi (ZOFRAN 0-05 10-05 Push, PRN, ity o f (PF)) 21:38: 21:38 Starting [place] injection 39 :39 on [facility] 08/29/23 at Branch 1638, Until Discontinu ed, Routine, Intra-op FENTanyl PF 2022-11 Yes Slow IV Uni vers (SUBLIMAZE 0-05 Push, PRN, ity of (PF)) 19:15: Starting [place] injection 30 on [facility] 08/29/23 at Branch 1415, Until Discontinu ed, Routine, Intra-op FENTanyl PF 2022-11- No Slow IV Un chi (SUBLIMAZE 0-05 10-05 Push, PRN, it y of (PF)) 19:15: 22:58 Starting [place] injection 30 :29 on [facility] 08/29/23 at Branch 1415, Until Discontinu ed, Routine, Intra-op midazolam 2022-11 Yes IV Push, Univ ers (VERSED) 0-05 PRN, ity of injection 19:15: Starting [place] 09 on [facility] 08/29/23 at Branch 1415, Until Discontinu ed, Routine, Intra-op midazolam 2022-11- No IV Push, Uni vers (VERSED) 0-05 10-05 PRN, ity of injection 19:15: 20:42 Starting [place] as 09 :37 on [facility] 08/29/23 at Branch 1415, Until Discontinu ed, Routine, Intra-op NaCl 0.9% 2022-11 Yes 10mL 10 mL, Univer s (NS) 0-05 Slow IV ity of injection 16:00: Push, PRN, [place] 10 mL 20 Starting Medical on [facility] 08/29/23 at 1100, Until Discontinu ed, Routine, line maintenanc e lidocaine 2022-11 Yes 5mL 5 mL, Univers 1% (PF) 0-05 Subcutaneo ity of (XYLOCAINE) 16:00: us, PRN, [place] injection 5 20 Starting Medi matt mL on [facility] 08/29/23 at 1100, Until Discontinu ed, Routine, Local anesthesia NaCl 0.9% 2022-11 Yes 10mL 10 mL, Univer s (NS) 0-05 Slow IV ity of injection 16:00: Push, PRN, [place] 10 mL 20 Starting Medical on [facility] 08/29/23 at 1100, Until Discontinu ed, Routine, line maintenanc e lidocaine 2022-11 Yes 5mL 5 mL, Univers 1% (PF) 0-05 Subcutaneo ity of (XYLOCAINE) 16:00: us, PRN, [place] injection 5 20 Starting Medi matt mL on [facility] Branch 08/29/23 at 1100, Until Discontinu ed, Routine, Local anesthesia NaCl 0.9% 2022-11 Yes 10mL 10 mL, Univer s (NS) 0-05 Slow IV ity of injection 16:00: Push, PRN, [place] 10 mL 20 Starting Medical on [facility] Branch 08/29/23 at 1100, Until Discontinu ed, Routine, line maintenanc e lidocaine 2022-11 Yes 5mL 5 mL, Univers 1% (PF) 0-05 Subcutaneo ity of (XYLOCAINE) 16:00: us, PRN, [place] injection 5 20 Starting Medi matt mL on [facility] Branch 08/29/23 at 1100, Until Discontinu ed, Routine, Local anesthesia NaCl 0.9% 2022-11- No 1000mL at 100 Uni vers (NS) IV 0-05 10-05 mL/hr, IV ity of infusion 13:00: 16:16 Infusion, Rick as 1,000 mL 00 :00 ONCE, 1 Medical dose, On Branch [facility] 08/29/23 at 0800, Routine iohexol 2022-11- No [id number] 100mL 100 mL, U nivers (OMNIPAQUE 0-05 10-05 Intravenou it y of 350 11:21: 11:21 s, ONCE, 1 [place] BULK-100 00 :00 dose, On Medical mL) [facility] Branch injection 08/29/23 at 100 mL 0645, Routine nicotine 2022-11 Yes 1{patch 1 Patch, Un chi (NICODERM) 0-05 } Topical, ity o f 21 mg/24 hr 10:00: Administer [place] patch 1 00 over 24 Medical Patch Hours, Branch Q24H, First dose on [facility] 08/29/23 at 0500, Until Discontinu ed, Routine nicotine 2022-11 Yes 1{patch 1 Patch, Un chi (NICODERM) 0-05 } Topical, ity o f 21 mg/24 hr 10:00: Administer [place] patch 1 00 over 24 Medical Patch Hours, Branch Q24H, First dose on Sat08/29/23 at 0500, Until Discontinu ed, Routine nicotine 2022-11 Yes 1{patch 1 Patch, Un chi (NICODERM) 0-05 } Topical, ity o f 21 mg/24 hr 10:00: Administer [place] patch 1 00 over 24 Medical Patch Hours, Branch Q24H, First dose on Sat08/29/23 at 0500, Until Discontinu ed, Routine atorvastati 2022-11 Yes 40mg 40 mg, Univ ers n (LIPITOR) 0-05 Oral, QHS, it y of tablet 40 02:00: First dose [place] mg 00 on Sat08/28/23 at Branch 2100, Until Discontinu ed, Routine atorvastati 2022-11 Yes 40mg 40 mg, Univ ers n (LIPITOR) 0-05 Oral, QHS, it y of tablet 40 02:00: First dose [place] mg 00 on Sat08/28/23 at Branch 2100, Until Discontinu ed, Routine atorvastati 2022-11 Yes 40mg 40 mg, Univ ers n (LIPITOR) 0-05 Oral, QHS, it y of tablet 40 02:00: First dose [place] mg 00 on Sat08/28/23 at Branch 2100, Until Discontinu ed, Routine pantoprazol 2022-11 Yes 8mg/h 8 mg/hr Un chi e 0-04 (50 ity of (PROTONIX) 20:00: mL/hr), IV [place] 80 mg in 00 Infusion, Medica l NaCl CONTINUOUS Branch 0.9%(NS) , Starting 500 mL IV on Sat infusion 08/28/23 at (CNR) 1500 pantoprazol 2022-11 8mg/h 8 mg/hr U nivers e 0-04 10-06 (50 ity of (PROTONIX) 20:00: 20:31 mL/hr), IV [place] 80 mg in 00 :33 Infusion, Medica l NaCl CONTINUOUS Branch 0.9%(NS) , Starting 500 mL IV on Sat infusion 08/28/23 at (CNR) 1500 FENTanyl PF 2022-11 Yes 25ug 25 mcg, Uni vers (SUBLIMAZE 0-04 Slow IV ity of (PF)) 17:51: Push, [place] injection 55 Q5MIN PRN, Medi matt 25 mcg 4 doses, Branch Starting on Sat08/28/23 at 1251, Until Discontinu ed, Routine, Pain (scale 4-6), PACU FENTanyl PF 2022-11 Yes 25ug 25 mcg, Uni vers (SUBLIMAZE 0-04 Slow IV ity of (PF)) 17:51: Push, [place] injection 55 Q5MIN PRN, Medi matt 25 mcg 4 doses, Branch Starting on Sat08/28/23 at 1251, Until Discontinu ed, Routine, Pain (scale 4-6), PACU ondansetron 2022-11 Yes 4mg 4 mg, Slow Univers (ZOFRAN 0-04 IV Push, ity of (PF)) 17:51: PRN, 1 [place] injection 4 55 dose, Medical mg Starting Branch on Sat08/28/23 at 1251, Until Discontinu ed, Routine, Nausea and Vomiting (N/V), PACU FENTanyl PF 2022-11 Yes 25ug 25 mcg, Uni vers (SUBLIMAZE 0-04 Slow IV ity of (PF)) 17:51: Push, [place] injection 55 Q5MIN PRN, Medi matt 25 mcg 4 doses, Branch Starting on Sat08/28/23 at 1251, Until Discontinu ed, Routine, Pain (scale 4-6), PACU ondansetron 2022-11- No 4mg 4 mg, Slow Univers (ZOFRAN 0-04 10-06 IV Push, ity of (PF)) 17:51: 00:21 PRN, 1 [place] injection 4 55 :00 dose, Medical mg Starting Branch on Sat08/28/23 at 1251, Until Discontinu ed, Routine, Nausea and Vomiting (N/V), PACU EPINEPHrine 2022-11- No PRN, Unive rs (PF) 0-04 08-28 Starting ity of 1:1,000 (1 17:17: 18:30 on Sat [place] mg/mL) 00 :27 08/28/23 at Medical (ADRENALIN 1217, Branch (PF)) Until Sat injection 08/28/23 at 1330, Routine, Intra-op erythromyci 2022-11- No 250mg 250 mg, IV Univers n 0-04 10- Piggyback, ity of (ERYTHROCIN 15:00: 16:49 ONCE, 1 [place] ) 250 mg in 00 :00 dose, On Medi matt NaCl 0.9% Sat (NS) 08/28/23 at piggyback 1000, Administer over 60 Minutes, 250 mL
[place] for Anti-Infec tive: Surgical Prophylaxi s
Surgi matt Prophylaxi s: Other (see Comments)< br>Duratio n of therapy: within 24 hours of surgery thiamine 2022-11 Yes 100mg 100 mg, Unive rs (VITAMIN 0-04 Oral, ity of B1) tablet 14:00: DAILY, [place] 100 mg 00 First dose Medical on Sat08/28/23 at 0900, Until Discontinu ed, Routine topiramate 2022-11 Yes 25mg 25 mg, Unive rs (TOPAMAX) 0-04 Oral, ity of SPRINKLE 14:00: DAILY, [place] capsule 25 00 First dose Med ical mg on Sat08/28/23 at 0900, Until Discontinu ed, Routine
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 : ESCUDERO, KIESHA thiamine 2022-11 Yes 100mg 100 mg, Unive rs (VITAMIN 0-04 Oral, ity of B1) tablet 14:00: DAILY, [place] 100 mg 00 First dose Medical on Sat08/28/23 at 0900, Until Discontinu ed, Routine foLIC acid 2022-11 Yes 1mg 1 mg, Univer s (FOLATE) 0-04 Oral, ity of tablet 1 mg 14:00: DAILY, [place] 00 First dose Medical on Sat Branch 08/28/23 at 0900, Until Discontinu ed, Routine foLIC acid 2022-11 Yes 1mg 1 mg, Univer s (FOLATE) 0-04 Oral, ity of tablet 1 mg 14:00: DAILY, [place] 00 First dose Medical on Sat08/28/23 at 0900, Until Discontinu ed, Routine topiramate 2022-11- No 25mg 25 mg, Univ ers (TOPAMAX) 0-04 10-10 Oral, ity of SPRINKLE 14:00: 16:16 DAILY, [place] capsule 25 00 :09 First dose Med ical mg on Sat08/28/23 at 0900, Until Discontinu ed, Routine
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 [address] foLIC acid 2022-11 Yes 1mg Take 1 Unive rs 1 mg tablet 0-04 tablet by ity of 13:30: mouth. [address] thiamine 2022-11 Yes 100mg Take 1 Univer s 100 mg 0-04 tablet by ity of tablet 13:30: mouth. [address] topiramate 2022-11 Yes 25mg Take 1 Unive rs 25 mg 0-04 capsule by ity of SPRINKLE 13:30: mouth. [address] pantoprazol 2022-11- No 40mg 40 mg, Uni vers e 0-04 10-04 Slow IV ity of (PROTONIX) 13:00: 18:49 Push, [place] injection 00 :15 Q12H, Medical 40 mg First dose Branch on Sat08/28/23 at 0800, Until Discontinu ed acetaminoph 2022-11 Yes 650mg 650 mg, Un chi en 0-04 Oral, ity of (TYLENOL) 09:06: Q6HPRN, [place] tablet 650 48 Starting Medic al mg on Sat08/28/23 at 0406, Until Discontinu ed, Routine, Pain (scale 1-3) acetaminoph 2022-11 Yes 650mg 650 mg, Un chi en 0-04 Oral, ity of (TYLENOL) 09:06: Q6HPRN, [place] tablet 650 48 Starting Medic al mg on Sat Branch 08/28/23 at 0406, Until Discontinu ed, Routine, Pain (scale 1-3) acetaminoph 2022-11 Yes 650mg 650 mg, Un chi en 0-04 Oral, ity of (TYLENOL) 09:06: Q6HPRN, [place] tablet 650 48 Starting Medic al mg on Sat Branch 08/28/23 at 0406, Until Discontinu ed, Routine, Pain (scale 1-3) multivit-ir 2022- Yes 1{tbl} Take 1 U nivers on-FA-calci 9-24 10-25 tablet by it y of um-mins 9 00:00: 04:59 mouth. [place] mg iron-400 00 :00 Medical mcg tablet Branch multivit-ir 2022- Yes 1{tbl} Take 1 U nivers on-FA-calci -24 10-25 tablet by it y of um-mins 9 00:00: 04:59 mouth. [place] mg iron-400 00 :00 Medical mcg tablet Branch multivit-ir 2022- Yes 1{tbl} Take 1 U nivers on-FA-calci -24 10-25 tablet by it y of um-mins 9 00:00: 04:59 mouth. [place] mg iron-400 00 :00 Medical mcg tablet Branch multivit-ir 2022- Yes 1{tbl} Take 1 U nivers on-FA-calci -24 10-25 tablet by it y of um-mins 9 00:00: 04:59 mouth. [place] mg iron-400 00 :00 Medical mcg tablet Branch multivit-ir 2022- Yes 1{tbl} Take 1 U nivers on-FA-calci -24 10-25 tablet by it y of um-mins 9 00:00: 04:59 mouth. [place] mg iron-400 00 :00 Medical mcg tablet [place] carvediloL 2022- Yes 3.125mg Take 1 U nivers 3.125 mg 9-23 10-24 tablet by ity o f tablet 00:00: 04:59 mouth. [place] 00 :00 Medical Branch pantoprazol 2022-0 2022- Yes 40mg Take 1 Uni vers e 40 mg EC 9-23 10-24 tablet by ity of tablet 00:00: 04:59 mouth in [place] 00 :00 the Medical morning Branch and 1 tablet in the evening. carvediloL 2022- Yes 3.125mg Take 1 U nivers 3.125 mg 9-23 10-24 tablet by ity o f tablet 00:00: 04:59 mouth. [place] 00 :00 Medical Branch pantoprazol 2022- Yes 40mg Take 1 Uni vers e 40 mg EC 9-23 10-24 tablet by ity of tablet 00:00: 04:59 mouth in [place] 00 :00 the Medical morning Branch and 1 tablet in the evening. carvediloL 2022- Yes 3.125mg Take 1 U nivers 3.125 mg 9-23 10-24 tablet by ity o f tablet 00:00: 04:59 mouth. [place] 00 :00 Medical Branch pantoprazol 0 2022- Yes 40mg Take 1 Uni vers e 40 mg EC 9-23 10-24 tablet by ity of tablet 00:00: 04:59 mouth in [place] 00 :00 the Medical morning Branch and 1 tablet in the evening. carvediloL 2022- Yes 3.125mg Take 1 U nivers 3.125 mg 9-23 10-24 tablet by ity o f tablet 00:00: 04:59 mouth. [place] 00 :00 Medical Branch carvediloL 0 2022- Yes 3.125mg Take 1 U nivers 3.125 mg 9-23 10-24 tablet by ity o f tablet 00:00: 04:59 mouth. [place] 00 :00 Medical Branch pantoprazol 2022-2022- No 40mg Take 1 Uni vers e 40 mg EC 9-23 10-11 tablet by ity of tablet 00:00: 00:00 mouth in [place] 00 :00 the Medical morning Branch and 1 tablet in the evening. nicotine 21 2022-0 Yes 1{patch Apply 1 Univers mg/24 hr 8-30 } Patch to ity of patch 00:00: skin. [address] nicotine 21 2022-0 Yes 1{patch Apply 1 Univers mg/24 hr 8-30 } Patch to ity of patch 00:00: skin. [address] nicotine 21 2022-0 Yes 1{patch Apply 1 Univers mg/24 hr 8-30 } Patch to ity of patch 00:00: skin. [address] nicotine 21 3-0 Yes 1{patch Apply 1 Univers mg/24 hr 8-30 } Patch to ity of patch 00:00: skin. [address] nicotine 21 2022-0 Yes 1{patch Apply 1 Univers mg/24 hr 8-30 } Patch to ity of patch 00:00: skin. [address] nicotine 3-0 Yes 1{patch QD Place [address] [facility] [...] total) by Center capsule mouth daily. nicotine 3-0 Yes 1{patch QD Place [address] [facility] [...] 00 by mouth Center tablet daily. tamsulosin 2022-0 Yes .4mg QD Take 1 [facility] (FLOMAX[facility] 8-30 [facility].4 mg Cap 00:00: (0.4 mg Medi matt 24 hr 00 total) by Center capsule mouth daily. aspirin 81 2022-0 Yes 81mg QD Take 1 [facility] MG chewable 8-29 tablet (81 Birdie kes tablet 14:46: mg total) Medica l 10 by mouth Center daily. thiamine 2022-0 Yes 100mg QD Take [address] [facility] [facility] [...] l 10 by mouth Center daily. thiamine 2022-0 Yes 100mg QD Take [address] [facility] [facility] [...] tablet 10 by mouth Center daily. NIFEdipine 2023-0 2023- No 60mg QD Take 1 [facility] [...] :00 by mouth Cent er tablet nightly. insulin 2022-0 Yes 8U inject 8 Univer s lispro, 8-29 Units ity of human, 100 00:00: under the [place] unit/mL 00 skin in Medical injection the [place] morning and 8 Units at noon and 8 Units in the evening. inject before meals. insulin 2022-0 Yes 8U inject 8 Univer s lispro, 8-29 Units ity of human, 100 00:00: under the [place] unit/mL 00 skin in Medical injection the Branch morning and 8 Units at noon and 8 Units in the evening. inject before meals. insulin 2022-0 Yes 8U inject 8 Univer s lispro, 8-29 Units ity of human, 100 00:00: under the [place] unit/mL 00 skin in Medical injection the Branch morning and 8 Units at noon and 8 Units in the evening. inject before meals. acetaminoph 2022-0 Yes 650mg Take 2 [facility] [...] Inject [address] [facility] (ZOFRAN) 8- mLs (4 mg Naty es 4 mg/2 [...] pain). Max Daily Amount: 200 mg NIFEdipine 2023- Yes 60mg Take 1 Univ ers XL 60 mg 24 07-23 tablet by it y of hr tablet 00:00: 04:59 mouth. [place] 00 :00 Medical Branch NIFEdipine 2022-0 2023- Yes 60mg Take 1 Univ ers XL 60 mg 24 07-23 tablet by it y of hr tablet 00:00: 04:59 mouth. [place] 00 :00 Medical Branch NIFEdipine 2022023- Yes 60mg Take 1 Univ ers XL 60 mg 24 -23 07-29 tablet by it y of hr tablet 00:00: 04:59 mouth. [place] 00 :00 Medical Branch NIFEdipine 2023- Yes 60mg Q.5D Take [address] [facility] (PROCARDIA- 8- 08-28 tablet (60 L ukes XL) 60 MG 00:00: 23:59 mg total) Me dical (OSM) 24 hr 00 :00 by mouth 2 Ce nter tablet (two) times daily. carvediloL 2023- Yes 6.25mg Q.5D Take [address] (COREG) 8-23 07-28 tablet [facility] 6.25 MG 00:00: 23:59 (6.25 mg Medic al tablet 00 :00 total) by Center mouth 2 (two) times daily. insulin 2023- Yes 0U Inject 0-[address] lispro 8- 08-28 Units [facility] (HumaLOG) 00:00: 23:59 subcutaneo [...] QD Take [address] ate 07-23- tablets by [facility] (SENOKOT S) 00:00: 23:59 [...] Yes 0U Inject 0-[address] lispro 07-23- Units [facility] (HumaLOG) 00:00: 23:59 subcutaneo M edical 100 unit/mL 00 :00 usly 3 Center injection (three) times daily before meals. senna-docus 2023- Yes 2{tbl} QD Take [address] ate 07-23- tablets by [facility] (SENOKOT S) 00:00: 23:59 mouth Medi matt 8.6-50 mg 00 :00 nightly. Center per tablet insulin 2022- No 8U inject 8 Unive rs lispro, 07-23 10-11 Units ity of human, 100 00:00: 00:00 under the [place] unit/mL 00 :00 skin in Medical injection the Branch morning and 8 Units at noon and 8 Units in the evening. inject before meals. NIFEdipine 2022- No 60mg Take 1 Univ ers XL 60 mg 24 07-23 10-11 tablet by it y of hr tablet 00:00: 00:00 mouth. [place] 00 :00 Medical Branch aspirin 81 2022-0 Yes 81mg QD Take [...] Medical tablet 19 by mouth Center daily. atorvastati 2021-11 Yes 40mg 1 tablet. U nivers n 40 mg 1-28 ity of tablet 00:00: [address] atorvastati 2021-11 Yes 40mg 1 tablet. U nivers n 40 mg 1-28 ity of tablet 00:00: [address] atorvastati 2021-11 Yes 40mg 1 tablet. U nivers n 40 mg 1-28 ity of tablet 00:00: [address] atorvastati 2021-11 Yes 40mg 1 tablet. U nivers n 40 mg 1-28 ity of tablet 00:00: [address] atorvastati 2021-11 Yes 40mg 1 tablet. U nivers n 40 mg 1-28 ity of tablet 00:00: [address] Immunizations Ordered Immunization Filled Immunization Date Status Commen ts Source Name Name Influenza Virus Unknown Completed Universit [facility] of Vaccine [facility] Influenza Virus Unknown Completed Universit y of Vaccine [facility] Influenza High Dose Unknown Completed Unive [facility] Influenza High Dose Unknown Completed Unive [facility] Influenza High Dose Unknown Completed Unive [facility] Influenza High Dose Unknown Completed Unive [facility] Influenza High Dose Unknown Completed Unive [facility] Influenza High Dose Unknown Completed Unive [facility] Influenza, Unknown Completed [facility] Influenza, Unknown Completed [facility] Pneumococcal 13 Unknown Completed Universit y of Conjugate, PCV13 [facility] dical (Prevnar 13) Branch Pneumococcal Unknown Completed University o f Unspecified [facility] TDAP Unknown Completed [facility] Zoster(Zostavax)(Mahnaz Unknown Completed Univ ersity of ngles) [facility] Influenza Virus Unknown Completed Universit y of Vaccine [facility] Influenza Virus Unknown Completed Universit y of Vaccine [facility] Influenza High Dose Unknown Completed Unive rsity of [facility] Influenza High Dose Unknown Completed Unive rsity of [facility] Influenza High Dose Unknown Completed Unive rsity of [facility] Influenza High Dose Unknown Completed Unive rsity of [facility] Influenza High Dose Unknown Completed Unive rsity of [facility] Influenza High Dose Unknown Completed Unive rsity of [facility], [facility] [place] [facility], [facility] Pneumococcal 13 Unknown Completed Universit y of Conjugate, PCV13 [facility] dical (Prevnar 13) Branch Pneumococcal Unknown Completed University o f Unspecified [facility] TDAP Unknown Completed [facility] Zoster(Zostavax)(Mahnaz Unknown Completed Univ ersity of ngles) [facility] Influenza Virus Unknown Completed Universit y of Vaccine [facility] Influenza Virus Unknown Completed Universit y of Vaccine [facility] Influenza High Dose Unknown Completed Unive rsity of [facility] Influenza High Dose Unknown Completed Unive rsity of [facility] Influenza High Dose Unknown Completed Unive rsity of [facility] Influenza High Dose Unknown Completed Unive rsity of [facility] Influenza High Dose Unknown Completed Unive rsity of [facility] Influenza High Dose Unknown Completed Unive rsity of [facility] Influenza, Unknown [facility] Influ[facility], [facility] Pneumococcal 13 Unknown Completed Universit y of Conjugate, PCV13 [facility] dical (Prevnar 13) Branch Pneumococcal Unknown Completed University o f Unspecified [facility] TDAP Unknown Completed [facility] Zoster(Zostavax)(Mahnaz Unknown Completed Univ ersity of ngles) [facility] Influenza Virus Unknown Completed Universit y of Vaccine [facility] Influenza Virus Unknown Completed Universit y of Vaccine [facility] Influenza High Dose Unknown Completed Unive rsity of [facility] Influenza High Dose Unknown Completed Unive rsity of [facility] Influenza High Dose Unknown Completed Unive rsity of [facility] Influenza High Dose Unknown [facility] High Dose Unknown Completed Unive rsity [facility] Influenza High Dose Unknown Com[facility], [facility] [place] Influ[facility], [facility] Completed [facility] Pneumococcal 13 Unknown Completed Universit y of Conjugate, PCV13 [facility] dical (Prevnar 13) Branch Pneumococcal Unknown Completed University o f Unspecified [facility] TDAP Unknown Completed [facility] Zoster(Zostavax)(Mahnaz Unknown Completed Univ ersity of [facility]) [facility] Influenza Virus Unknown Completed Universit y of Vaccine [facility] Influenza Virus Unknown Completed Universit y of Vaccine [facility] Influenza High Dose Unknown Completed [facility] Influenza High Dose Unknown Com[facility] Influenza High Dose Unknown Completed [facility] Influenza High Dose Unknown Completed [facility] Influenza High Dose Unknown Completed [facility] Influenza High Dose Unknown Completed [facility] Influenza, Unknown Completed [facility] Influenza, Unknown Completed [facility] Pneumococcal 13 Unknown Completed Universit y of Conjugate, PCV13 [facility] dical (Prevnar 13) Branch Pneumococcal Unknown Completed University o f Unspecified [facility] TDAP Unknown Completed [facility] Zoster(Zostavax)(Mahnaz Unknown Completed Univ ersity of [facility]) [facility] Vital Signs Vital Name Observation Time Observation Value Comments Source Systolic blood 2023-09-04 21:08:00 152 mm[Hg] Univer sity of pressure [facility] Diastolic blood 2023-09-04 21:08:00 67 mm[Hg] Unive rsity of pressure [facility] Heart rate 2023-09-04 21:08:00 67 /min [facility] Body temperature 2023-09-04 21:08:00 37.39 Janice [facility] Respiratory rate 2023-09-04 21:08:00 16 /min [facility] Oxygen saturation in 2023-09-04 21:08:00 97 /min [facility] Arterial blood by [facility] Pulse oximetry Branch Body height 2023-08-29 17:41:00 175.3 cm [facility] Body weight 2023-08-29 17:41:00 52.617 kg [facility] BMI 2023-08-29 17:41:00 17.13 kg/m2 [facility] Systolic blood 2023-08-30 23:24:00 202 mm[Hg] Univer sity of pressure [facility] Diastolic blood 2023-08-30 23:24:00 89 mm[Hg] Unive rsity of pressure [facility] Respiratory rate 2023-08-30 23:24:00 18 /min Univ ers[facility] Oxygen saturation in 2023-08-30 23:24:00 96 /min University Arterial blood by [facility] Pulse oximetry Branch Heart rate 2023-08-30 21:00:00 75 /min [facility] Body temperature 2023-08-30 21:00:00 35.78 Janice [facility] Body height 2023-08-29 17:41:00 175.3 cm [facility] Body weight 2023-08-29 17:41:00 52.617 kg [facility] BMI 2023-08-29 17:41:00 17.13 kg/m2 [facility] Systolic blood 2023-08-28 16:13:00 136 mm[Hg] Univer sity of pressure [facility] Diastolic blood 2023-08-28 16:13:00 72 mm[Hg] Unive rsity of pressure [facility] Heart rate 2023-08-28 16:13:00 63 /min [facility] Body temperature 2023-08-28 16:13:00 37.22 Janice [facility] Respiratory rate 2023-08-28 16:13:00 16 /min [facility] Body height 2023-08-28 16:13:00 175.3 cm [facility] Body weight 2023-08-28 16:13:00 49.896 kg [facility] BMI 2023-08-28 16:13:00 17.13 kg/m2 [facility] Oxygen saturation in 2023-08-28 16:13:00 98 /min University of Arterial blood by [facility] Pulse oximetry Branch WEIGHT 2023-08-15 06:00:00 56.1 kg WEIGHT 2023-08-14 [...] WEIGHT 2023-07-09 21:34:00 52.345 kg Systolic blood 2023-08-31 15:00:00 119 mm[Hg] Univer sity of pressure [facility] Diastolic blood 2023-08-31 15:00:00 80 mm[Hg] Unive rsity of [facility] Heart rate 2023-08-31 15:00:00 76 /min [facility] Respiratory rate 2023-08-31 15:00:00 18 /min [facility] Oxygen saturation in 2023-08-31 15:00:00 99 /min University Arterial blood by [facility] Pulse oximetry [place] Body temperature 2023-08-31 13:00:00 36 Janice [facility] Body height 2023-08-29 17:41:00 175.3 cm [facility] Body weight 2023-08-29 17:41:00 52.617 kg [facility] BMI 2023-08-29 17:41:00 17.13 kg/m2 [facility] Systolic blood 2023-07-23 13:06:00 153 mm[Hg] [facility] Diastolic blood 2023-07-23 13:06:00 62 mm[Hg] [facility] Heart rate 2023-07-23 13:06:00 57 /min [facility] Body temperature 2023-07-23 13:06:00 37.11 Janice [facility] Respiratory rate 2023-07-23 13:06:00 18 /min [facility] Oxygen saturation in 2023-07-23 13:06:00 95 /min [facility] Arterial blood by Medical Ce nter Pulse oximetry Body weight 2023-07-23 03:45:00 52.3 kg [facility] Systolic blood 2023-07-12 11:00:00 153 mm[Hg] [facility] Diastolic blood 2023-07-12 11:00:00 69 mm[Hg] [facility] Heart rate 2023-07-12 11:00:00 55 /min [facility] Body temperature 2023-07-12 11:00:00 36.28 Janice [facility] Respiratory rate 2023-07-12 11:00:00 18 /min [facility] Oxygen saturation in 2023-07-12 11:00:00 97 /min [facility] Arterial blood by Medical Ce [facility]ter Pulse oximetry Body weight 2023-07-11 04:36:[address] [facility] Procedures Procedure Date / Time Performing Source Performed Clinician CBC WITHOUT DIFF [facility]23[facility] 20:01:00 [facility] MAGNESIUM 2023-09-04 [facility] 09:34:00 [facility] COMP. METABOLIC PANEL (54858) 2023-09-04 [facility] 09:34:00 [facility] CBC WITH DIFF 2023-09-04 [facility] 09:34:00 [facility] CBC WITHOUT DIFF 2023-09-04 [facility] 04:56:00 [facility] LACTIC ACID WHOLE BLOOD 2023-09-[facility] 23:34:00 [facility] CBC WITHOUT DIFF 2023-09-03 [facility] 18:56:00 [facility] MAGNESIUM 2023-09-03 [facility] 09:15:00 [facility] BASIC METABOLIC PANEL (NA, K, CL, 2023-09-03 Adi [facility] of CO2, GLUCOSE, BUN, CREATININE, CA) 09:15:00 [facility] CBC WITHOUT DIFF 2023-09-03 [facility] of 09:15:00 [facility] CBC WITHOUT DIFF 2023-09-02 [facility] 23:06:00 [facility] BASIC METABOLIC PANEL (NA, K, CL, 2023-09-02 [facility] [employer] [facility] of CO2, GLUCOSE, BUN, CREATININE, CA) 09:12:00 [facility] CBC WITHOUT DIFF 2023-09-02 [facility] of 09:12:00 [facility] PHOSPHORUS 2023-09-02 Rian [facility] of 09:12:00 [facility] MAGNESIUM 2023-09-02 [facility] 09:12:00 [facility] BASIC METABOLIC PANEL (NA, K, CL, 2023-09-02 [employer] University of CO2, GLUCOSE, BUN, CREATININE, CA) 09:12:00 [facility] CBC WITHOUT DIFF 2023-09-02 [place] of 09:12:00 [facility] CBC WITHOUT DIFF 2023-09-02 [facility] of 01:26:00 [facility] CBC WITHOUT DIFF 2023-09-02 [facility], [facility] of :26:00 [facility] CBC WITHOUT DIFF 2023-09-01 [facility], [facility] of 20:00:00 [facility] CBC WITHOUT DIFF 2023-09-01 [facility], [facility] of 20:00:00 [facility] ACTIVATED PARTIAL THRMPLAS MARVA 2023-09-01 [place] [facility] niversity of 17:24: [facility] ACTIVATED PARTIAL THRMPLAS MARVA 2023-09-01 [place] [facility] niversity of :24: [facility] PREPARE PACKED RBC 2023-09-01 [facility] o f 16:53:28 [facility] PREPARE PACKED RBC 2023-09-01 [facility] o f 16:53:28 [facility] HB ABO GROUPING 2023-09-01 [facility] of 15:13:00 [facility] HB ABO GROUPING 2023-09-01 [facility] of 15:13:00 [facility] BASIC METABOLIC PANEL (NA, K, CL, 2023-09-01 CharlesAltaf University of CO2, GLUCOSE, BUN, CREATININE, CA) 09:24: [facility] CBC WITHOUT DIFF 2023-09-01 [place] of 09:24:00 [facility] ACTIVATED PARTIAL THRMPLAS MARVA 2023-09-01 [place] U niversity of :24: [facility] BASIC METABOLIC PANEL (NA, K, CL, 2023-09-01 Charles [facility] of CO2, GLUCOSE, BUN, CREATININE, CA) 09:24: [facility] CBC WITHOUT DIFF 2023-09-01 [place] of 09:24:00 [facility] ACTIVATED PARTIAL THRMPLAS MARVA 2023-09-01 [place] U niversity of :24:00 [facility] CBC WITHOUT DIFF 2023-09-01 Charles [facility] of 01:08:00 [facility] CBC WITHOUT DIFF 2023-09-01 [facility] of 01:08:00 [facility] AC PANEL 20 + LACTIC ACID 2023-08-[address] [facility] sity of 19:50:00 [facility] AC PANEL 20 + LACTIC ACID 2023-08-[address] [facility] sity of 19:50:00 [facility] ACTIVATED PARTIAL THRMPLAS MARVA 2023-08-31 [place] [facility] niversity of 19:37:00 [facility] ACTIVATED PARTIAL THRMPLAS MARVA 2023-08-31 Canelokes, Laura U niversity of 19:37:00 [facility] CBC WITHOUT DIFF 2023-08-31 Charles, [facility] of 15:53:00 [facility] CBC WITHOUT DIFF 2023-08-31 Charles, [facility] of 15:53:00 [facility] CBC WITHOUT DIFF 2023-08-31 Charles, [facility] of 15:53:00 [facility] ACTIVATED PARTIAL THRMPLAS MARVA 2023-08-31 Harjinder, Laura U niversity of 12:33:00 [facility] ACTIVATED PARTIAL THRMPLAS MARVA 2023-08-31 Dykes, Laura U niversity of 12:33:00 [facility] ACTIVATED PARTIAL THRMPLAS MARVA 2023-08-31 Canelokes, Laura U niversity of 12:33:00 [facility] LACTIC ACID WHOLE BLOOD 2023-08-31 [place] Universi ty of 11:07:00 [facility] LACTIC ACID WHOLE BLOOD 2023-08-31 Harjinder, Laura Universi ty of 11:07:00 [facility] LACTIC ACID WHOLE BLOOD 2023-08-31 Harjinder, Laura Universi ty of 11:07:00 [facility] MAGNESIUM 2023-08-31 [facility], [facility] of 09:30:00 [facility] CBC WITH DIFF 2023-08-31 [facility], [facility] of 09:30:00 [facility] BASIC METABOLIC PANEL (NA, K, CL, 2023-08-31 Charles, [facility] University of CO2, GLUCOSE, BUN, CREATININE, CA) 09:30:00 [facility] MAGNESIUM 2023-08-31 [facility] of 09:30:00 [facility] BASIC METABOLIC PANEL (NA, K, CL, 2023-08-31 [facility] of CO2, GLUCOSE, BUN, CREATININE, CA) 09:30:00 [facility] CBC WITH DIFF 2023-08-31 [facility] of 09:30:00 [facility] MAGNESIUM 2023-08-31 [facility] of 09:30:00 [facility] BASIC METABOLIC PANEL (NA, K, CL, 2023-08-31 [facility] of CO2, GLUCOSE, BUN, CREATININE, CA) 09:30:00 [facility] CBC WITH DIFF 2023-08-31 [facility] of 09:30:00 [facility] ACTIVATED PARTIAL THRMPLAS MARVA 2023-08-31 [place] [facility]iversity of 04:59:00 [facility] ACTIVATED PARTIAL THRMPLAS MARVA 2023-08-31 [place] [facility] niversity of 04:59:00 [facility] ACTIVATED PARTIAL THRMPLAS MARVA 2023-08-31 [place] U niversity of 04:59:00 [facility] PROTHROMBIN TIME / INR 2023-08-31 [place] Universit y of 03:56:00 [facility] PROTHROMBIN TIME / INR 2023-08-31 [place] Universit y of 03:56:00 [facility] PROTHROMBIN TIME / INR 2023-08-31 [place] Universit y of 03:56:00 [facility] HB ECG ROUTINE & RHYTHM STRIP 2023-08-31 Anthony Troncoso Un iversity of 01:37:02 [facility] HB ECG ROUTINE & RHYTHM STRIP 2023-08-31 Anthony Troncoso Un iversity of 01:37:02 [facility] CARDIAC CATHETERIZATION 2023-08-31 u-Tram, Universi ty of 00:36:00 Tareq [facility] CARDIAC CATHETERIZATION 2023-08-31 Abu-Cesar, Universi ty of 00:36:00 Tareq [facility] TROPONIN I 2023-08-30 [facility] of 18:21:00 [facility] TROPONIN I 2023-08-30 [facility] of 18:21:00 [facility] TROPONIN I 2023-08-30 [facility] of 18:21:00 [facility] LACTIC ACID WHOLE BLOOD 2023-08-30 [facility] Univers ity of 17:05:00 [facility] LACTIC ACID WHOLE BLOOD 2023-08-30 [facility] ity of 17:05:00 [facility] LACTIC ACID WHOLE BLOOD 2023-08-30 [facility] ity of 17:05:00 [facility] HB ECG ROUTINE & RHYTHM STRIP 2023-08-30 Joslyn Membreno. Un iversity of 16:57:57 [facility] HB ECG ROUTINE & RHYTHM STRIP 2023-08-30 Joslyn Membreno Un iversity of 16:57:57 [facility] TRANSTHORACIC ECHO (TTE) COMPLETE 2023-08-30 [facility] W/ CONTRAST 14:40:31 [facility] TRANSTHORACIC ECHO (TTE) COMPLETE 2023-08-30 [facility] W/ CONTRAST 14:40:31 [facility] TRANSTHORACIC ECHO (TTE) COMPLETE 2023-08-30 [facility]/ CONTRAST 14:40:31 [facility] HB ECG ROUTINE & RHYTHM STRIP 2023-08-30 Joslyn Membreno Un iversity of 12:59:52 [facility] HB ECG ROUTINE & RHYTHM STRIP 2023-08-30 Joslyn Membreno Un iversity of 12:59:52 [facility] TROPONIN I 2023-08-30 Joslyn Membreno [facility] 10:32:00 [facility] MAGNESIUM 2023-08-30 Joslyn Membreno [facility] 10:32:00 [facility] BASIC METABOLIC PANEL (NA, K, CL, 2023-08-30 Joslyn Membreno [facility] CO2, GLUCOSE, BUN, CREATININE, CA) 10:32:00 [facility] CBC WITH DIFF 2023-08-30 Joslyn Membreno. University 10:32:00 [facility] MAGNESIUM 2023-08-30 Joslyn Membreno. University 10:32:00 [facility] TROPONIN I 2023-08-30 Joslyn Membreno. University of 10:32:00 [facility] BASIC METABOLIC PANEL (NA, K, CL, 2023-08-30 Joslyn Membreno. University CO2, GLUCOSE, BUN, CREATININE, CA) 10:32:00 [facility] CBC WITH DIFF 2023-08-30 Joslyn Membreno. University 10:32:00 [facility] MAGNESIUM 2023-08-30 Joslyn Membreno. University 10:32:00 [facility] TROPONIN I 2023-08-30 Joslyn Membreno. University 10:32:00 [facility] BASIC METABOLIC PANEL (NA, K, CL, 2023-08-30 Joslyn Membreno. University of CO2, GLUCOSE, BUN, CREATININE, CA) 10:32:00 [facility] CBC WITH DIFF 2023-08-30 Joslyn Membreno. University 10:32:00 [facility] HB ECG ROUTINE & RHYTHM STRIP 2023-08-30 Joslyn Membreno Un iversity of 10:16:05 [facility] HB ECG ROUTINE & RHYTHM STRIP 2023-08-30 Joslyn Membreno Un iversity of 10:16:05 [facility] TROPONIN I 2023-08-30 Joslyn Membreno University of 07:02:00 [facility] LACTIC ACID WHOLE BLOOD 2023-08-30 Joslyn Membreno. Universi ty of 07:02:00 [facility] TROPONIN I 2023-08-30 Joslyn Membreno. University of 07:02:00 [facility] LACTIC ACID WHOLE BLOOD 2023-08-30 Joslyn Membreno. Universi ty of 07:02:00 [facility] TROPONIN I 2023-08-30 Joslyn Membreno. University of 07:02:00 [facility] LACTIC ACID WHOLE BLOOD 2023-08-30 Joslyn Membreno. Universi ty of 07:02:00 [facility] BASIC METABOLIC PANEL (NA, K, CL, 2023-08-30 Haseeb, Joslyn Anderson University of CO2, GLUCOSE, BUN, CREATININE, CA) 05:26:00 [facility] BASIC METABOLIC PANEL (NA, K, CL, 2023-08-30 Haseeb, Joslyn Anderson University of CO2, GLUCOSE, BUN, CREATININE, CA) 05:26:00 [facility] BASIC METABOLIC PANEL (NA, K, CL, 2023-08-30 Haseeb, Joslyn Anderson University of CO2, GLUCOSE, BUN, CREATININE, CA) 05:26:00 [facility] TROPONIN I 2023-08-30 Joslyn Membreno. University of 03:14:00 [facility] LACTIC ACID WHOLE BLOOD 2023-08-30 Joslyn Membreno. Universi ty of 03:14: [facility] TROPONIN I 2023-08-30 Joslyn Membreno [place] of 03:14:00 [facility] LACTIC ACID WHOLE BLOOD 2023-08-30 Joslyn Membreno. Universi ty of 03:14:00 [facility] TROPONIN I 2023-08-30 Joslyn Membreno. University of 03:14:00 [facility] LACTIC ACID WHOLE BLOOD 2023-08-30 Joslyn Membreno. Universi ty of 03:14:00 [facility] HB ECG ROUTINE & RHYTHM STRIP 2023-08-30 Joslyn Membreno Un iversity of 02:43:23 [facility] HB ECG ROUTINE & RHYTHM STRIP 2023-08-30 Joslyn Membreno Un iversity of 02:43:23 [facility] MRSA / MSSA SCREEN BY PCRARMANI 2023-08-30 Vicky [facility] of 02:05:00 [facility] MRSA / MSSA SCREEN BY PCRARMANI 2023-08-30 [facility] of 02:05:00 [facility] MRSA / MSSA SCREEN BY PCRARMANI 2023-08-30 [facility] of 02:05:00 [facility] XR CHEST 1 VW 2023-08-30 Justino Bowser of 00:44:00 [facility] XR CHEST 1 VW 2023-08-30 Justino Bowser [place] of 00:44:00 [facility] XR CHEST 1 VW 2023-08-30 Justino Bowser [place] of 00:44:00 [facility] IR EMBOLIZATION ARTERIAL OR VENOUS 2023-08-29 Anthony Troncoso [place] of HEMORRHAGE OR LYMPHATIC 23:18:00 [facility] dical EXTRAVASATION Branch IR EMBOLIZATION ARTERIAL OR VENOUS 2023-08-29 [facility] of HEMORRHAGE OR LYMPHATIC 23:18:00 [facility] dical EXTRAVASATION Branch ACTIVATED PARTIAL THRMPLAS MARVA 2023-08-29 yonas Rex U niversity of 22:43:00 [facility] BASIC METABOLIC PANEL (NA, K, CL, 2023-08-29 [facility] of CO2, GLUCOSE, BUN, CREATININE, CA) 22:43:00 [facility] CBC WITH DIFF 2023-08-29 yonas, [facility] of 22:43:00 [facility] MAGNESIUM 2023-08-29 yonas, [facility] of 22:43:00 [facility] PROTHROMBIN TIME / INR 2023-08-29 [facility] 22:43:00 [facility] TROPONIN I 2023-08-29 [facility], [facility] of 22:43:00 [facility] N-TERMINAL PRO-BNP 2023-08-29 [facility] of 22:43:00 [facility] MAGNESIUM 2023-08-29 [facility], [facility] of 22:43:00 [facility] TROPONIN I 2023-08-29 yonas, [facility] of 22:43:00 [facility] BASIC METABOLIC PANEL (NA, K, CL, 2023-08-29 [facility], [facility] of CO2, GLUCOSE, BUN, CREATININE, CA) 22:43:00 [facility] CBC WITH DIFF 2023-08-29 yonas, [facility] of 22:43:00 [facility] PROTHROMBIN TIME / INR 2023-08-29 [facility] 22:43:00 [facility] ACTIVATED PARTIAL THRMPLAS MARVA 2023-08-29 Eamon, Rex U niversity of 22:43:00 [facility] N-TERMINAL PRO-BNP 2023-08-29 [facility] of 22:43:00 [facility] MAGNESIUM 2023-08-29 [facility], [facility] of 22:43:00 [facility] TROPONIN I 2023-08-29 [facility], [facility] of 22:43:00 [facility] BASIC METABOLIC PANEL (NA, K, CL, 2023-08-29 [facility], [facility] of CO2, GLUCOSE, BUN, CREATININE, CA) 22:43:00 [facility] CBC WITH DIFF 2023-08-29 [facility], [facility] of 22:43:00 [facility] PROTHROMBIN TIME / INR 2023-08-29 [facility] 22:43[facility]00 [facility] ACTIVATED PARTIAL THRMPLAS MARVA 2023-08-29 [facility] niversity of 22:43:00 [facility] N-TERMINAL PRO-BNP 2023-08-29 [facility], [facility] of 22:43:00 [facility] PREPARE PACKED RBC 2023-08-29 Purvi Ochoa [place] of 20:06:18 [facility] PREPARE PACKED RBC 2023-08-29 Ochoa, [facility] of 20:06:18 [facility] PREPARE PACKED RBC 2023-08-29 Ochoa, [facility] of 20:06:18 [facility] PREPARE PACKED RBC 2023-08-29 Ochoa, [facility] of 20:06:18 [facility] PREPARE PACKED RBC 2023-08-29 [facility] 16:43:50 [facility] FIBRINOGEN 2023-08-29 Don [facility] of 16:40:00 [facility] FIBRINOGEN 2023-08-29 [facility] 16:40:00 [facility] FIBRINOGEN 2023-08-29 Ochoa, [facility] 16:40:00 [facility] FIBRINOGEN 2023-08-29 OchoaSusie canalesSaint [facility] of 16:40:00 [facility] TRANSFUSE PACKED RBC 2023-08-29 Susie [facility] 16:30:00 [facility] TRANSFUSE PACKED RBC 2023-08-29 Don, [facility] 16:30:00 [facility] CT ANGIOGRAM ABDOMEN/PELVIS 2023-08-29 Todd Santos [facility] ersity of 11:34:15 [facility] [address] ANGIOGRAM ABDOMEN/PELVIS 2023-08-29 Santos, [facility] ersity of 11:34:15 [facility] [address] ANGIOGRAM ABDOMEN/PELVIS 2023-08-29 Santos, [facility] ersity of 11:34:15 [facility] CBC WITHOUT DIFF 2023-08-29 Ochoa, [facility] of 07:10:00 [facility] CBC WITHOUT DIFF 2023-08-29 Ochoa, [facility] of 07:10:00 [facility] CBC WITHOUT DIFF 2023-08-29 Ochoa, [facility] of 07:10:00 [facility] CBC WITHOUT DIFF 2023-08-29 Ochoa, [facility] of 07:10:00 [facility] CBC WITHOUT DIFF 2023-08-29 Ochoa, [facility] of 01:12:00 [facility] CBC WITHOUT DIFF 2023-08-29 Ochoa, [facility] of 01:12:00 [facility] CBC WITHOUT DIFF 2023-08-29 Ochoa, [facility] of 01:12:00 [facility] CBC WITHOUT DIFF 2023-08-29 Ochoa, [facility] of 01:12:[address] [facility] [address] ABDOMEN PELVIS WO CONTRAST 2023-08-28 Purvi Ochoa [facility] of 20:49:32 [facility] [address] ABDOMEN PELVIS WO CONTRAST 2023-08-28 Purvi Ochoa [facility] of 20:49:32 [facility] [address] ABDOMEN PELVIS WO CONTRAST 2023-08-28 Purvi Ochoa [facility] of 20:49:32 [facility] CBC WITHOUT DIFF 2023-08-28 Ochoa, [facility] of 18:51:00 [facility] CBC WITHOUT DIFF 2023-08-28 Ochoa, [facility] of 18:51:00 [facility] CBC WITHOUT DIFF 2023-08-28 Ochoa, [facility] of 18:51:00 [facility] CBC WITHOUT DIFF 2023-08-28 Ochoa, [facility] of 18:51:00 [facility] INTUBATION 2023-08-28 Clark, [facility] of 16:56:00 [facility] ESOPHAGOGASTRODUODENOSCOPY 2023-08-28 [facility] 16:33:00 [facility] ESOPHAGOGASTRODUODENOSCOPY 2023-08-28 MendozaVelasquez munoz [facility] rsity of 16:33:00 [facility] ESOPHAGOGASTRODUODENOSCOPY 2023-08-28 MendozaVelasquez [facility] 16:33:00 [facility] EGD (ENDO) 2023-08-28 Kulwant River [facility] 16:21:47 [facility] EGD (ENDO) 2023-08-28 Perico [facility] 16:21:47 [facility] EGD (ENDO) 2023-08-28 [facility] 16:21:47 [facility] EGD (ENDO) 2023-08-28 [facility] 16:21:47 [facility] ABORH CONFIRMATION (LAB ONLY) 2023-08-28 Kiesha Escudero Un [facility] of 11:04:00 [facility] ABORH CONFIRMATION (LAB ONLY) 2023-08-28 Kiesha Escudero [facility] of 11:04:00 [facility] ABORH CONFIRMATION (LAB ONLY) 2023-08-28 Kena Kiesha Un i[facility] of 11:04:00 [facility] ABORH CONFIRMATION (LAB ONLY) 2023-08-28 Kiesha Escudero Un [facility] of 11:04:00 [facility] HB ABO GROUPING 2023-08-28 [facility] of 10:17:00 [facility] COMP. METABOLIC PANEL ([id number]) 2023-08-28 [facility] 10:17:00 [facility] PROTHROMBIN TIME / INR 2023-08-28 [facility] 10:17:00 [facility] FIBRINOGEN 2023-08-28 [facility] of 10:17:00 [facility] ACTIVATED PARTIAL THRMPLAS MARVA 2023-08-28 [facility] of 10:17:00 [facility] FOLATE 2023-08-28 [facility] of 10:17:00 [facility] VITAMIN B12, LEVEL 2023-08-28 [facility] o f 10:17:00 [facility] CBC WITH DIFF 2023-08-28 [facility] of 10:17:00 [facility] EXTRA TUBE LT. GREEN 2023-08-28 [facility] 10:17:00 [facility] VITAMIN B12, LEVEL 2023-08-28 [facility] o f 10:17:00 [facility] FOLATE 2023-08-28 [facility] of 10:17:00 [facility] COMP. METABOLIC PANEL ([id number]) 2023-08-28 [facility] niversity of 10:17:00 [facility] CBC WITH DIFF 2023-08-28 [facility] of 10:17:00 [facility] PROTHROMBIN TIME / INR 2023-08-28 [facility] 10:17:00 [facility] ACTIVATED PARTIAL THRMPLAS MARVA 2023-08-28 [facility] of 10:17:00 [facility] FIBRINOGEN 2023-08-28 [facility] of 10:17:00 [facility] HB ABO GROUPING 2023-08-28 [facility] 10:17:00 [facility] EXTRA TUBE LT. GREEN 2023-08-28 [facility] 10:17:00 [facility] VITAMIN B12, LEVEL 2023-08-28 [facility] f 10:17:00 [facility] FOLATE 2023-08-28 [facility] of 10:17:00 [facility] COMP. METABOLIC PANEL ([id number]) 2023-08-28 [facility] of 10:17:00 [facility] CBC WITH DIFF 2023-08-28 [facility] of 10:17:00 [facility] PROTHROMBIN TIME / INR 2023-08-28 [facility] 10:17:00 [facility] ACTIVATED PARTIAL THRMPLAS MARVA 2023-08-28 [facility] of 10:17:00 [facility] FIBRINOGEN 2023-08-28 [facility] of 10:17:00 [facility] HB ABO GROUPING 2023-08-28 [facility] 10:17:00 [facility] EXTRA TUBE LT. GREEN 2023-08-28 [facility] 10:17:00 [facility] VITAMIN B12, LEVEL 2023-08-28 [facility] f 10:17:00 [facility] FOLATE 2023-08-28 [facility] 10:17:00 [facility] COMP. METABOLIC PANEL ([id number]) 2023-08-28 [facility] niversity of 10:17:00 [facility] CBC WITH DIFF 2023-08-28 [facility] 10:17:00 [facility] PROTHROMBIN TIME / INR 2023-08-28 [facility] 10:17:00 [facility] ACTIVATED PARTIAL THRMPLAS MARVA 2023-08-28 [facility] 10:17:00 [facility] FIBRINOGEN 2023-08-28 [facility] 10:17:00 [facility] HB ABO GROUPING 2023-08-28 [facility] 10:17:00 [facility] EXTRA TUBE LT. GREEN 2023-08-28 [facility] 10:17:00 [facility] ENDOSCOPY PROCEDURE DOCUMENTATION 2023-08-28 Doctor Mamadou hyatt, [facility] 05:01:00 [place] [facility] ADMISSION 2023-08-28 Doctor Stacey, [facility] 05:01:00 [place] [facility] ENDOSCOPY PROCEDURE DOCUMENTATION 2023-08-28 Doctor Mamadou hyatt, [facility] 05:01:00 [facility] ADMISSION 2023-08-28 Doctor Ibarra, [facility] 05:01:00 [place] [facility] ENDOSCOPY PROCEDURE DOCUMENTATION 2023-08-28 Doctor Mamadou hyatt, [facility] 05:01:00 [place] [facility] ENDOSCOPY PROCEDURE DOCUMENTATION 2023-08-28 Doctor Mamadou hyatt, [facility] 05:01:00 [place] [facility] POCT-GLUCOSE METER 2023-07-23 Jose Juan Martinez [facility] 12:58:00 [facility] POCT-GLUCOSE METER 2023-07-23 Giveon, Abilio [facility] 07:27:00 [facility] CBC W/PLT COUNT & AUTO 2023-07-23 Stew, Solomon El [facility] DIFFERENTIAL 04:54:00 [facility] BASIC METABOLIC PANEL 2023-07-23 Stew, Solomon El [facility] 04:54:00 [facility] PHOSPHORUS 2023-07-23 Martinez, Jose Juan Harjeet [facility] 04:54:00 [facility] MAGNESIUM 2023-07-23 Martinez, Jose Juan Harjeet [facility] 04:54:00 [facility] CBC W/PLT COUNT & AUTO 2023-07-23 Stew, Solomon El [facility] DIFFERENTIAL 04:54:00 [facility] (CELLAVISION MANUAL DIFF) 2023-07-23 Stew, Solomon El [facility] 04:54:00 [facility] ECG 12-LEAD 2023-07-[address] [facility] 04:17:14 [facility] POCT-GLUCOSE METER 2023-07-22 Givesoha, Abilio [facility] 20:58:00 [facility] POCT-GLUCOSE METER 2023-07-22 Giveon, Abilio [facility] 16:40:00 [facility] POCT-GLUCOSE METER 2023-07-22 Givesoha, Abilio [facility] 12:46:00 [facility] XR ABDOMEN/KUB 1 VIEW PORTABLE 2023-07-[address] GiveAb[address] [facility] 10:02:10 [facility] POCT-GLUCOSE METER 2023-07-22 Givesoha, Abilio [facility] 07:08:00 [facility] ECG 12-LEAD 2023-07-[address] [facility] 05:13:56 [facility] ECG 12-LEAD 2023-07-22 Unknown, Hl7 [facility] 05:13:56 [facility] CBC W/PLT COUNT & AUTO 2023-07-22 Stew, Solomon El [facility] DIFFERENTIAL 04:31:00 [facility] BASIC METABOLIC PANEL 2023-07-22 Stew, Solomon El [facility] 04:31:00 [facility] PHOSPHORUS 2023-07-22 Martinez, Jose Juan Harjeet [facility] 04:31:00 [facility] MAGNESIUM 2023-07-22 Martinez, Jose Juan Harjeet [facility] 04:31:00 [facility] CBC W/PLT COUNT & AUTO 2023-07-22 Stew, Solomon El [facility] DIFFERENTIAL 04:31:00 [facility] (CELLAVISION MANUAL DIFF) 2023-07-22 Stew, Solomon El [facility] 04:31:00 [facility] POCT-GLUCOSE METER 2023-07-21 Hasan, Rosalina Ali [facility] 20:52:00 [facility] POCT-GLUCOSE METER 2023-07-21 Hasan, Rosalina Ali [facility] 16:59:00 [facility] POCT-GLUCOSE METER 2023-07-21 Hasan, Rosalina Ali [facility] 11:01:00 [facility] POCT-GLUCOSE METER 2023-07-21 Hasan, Rosalina Ali [facility] 08:54:00 [facility] ECG 12-LEAD 2023-07-21 Hasan, Rosalina Ali [facility] 08:46:25 [facility] ECG 12-LEAD 2023-07-21 Unknown, Hl7 [facility] 08:46:25 [facility] CBC W/PLT COUNT & AUTO 2023-07-21 Stew, Solomon El [facility] DIFFERENTIAL 04:35:00 [facility] BASIC METABOLIC PANEL 2023-07-21 Stew, Solomon El [facility] 04:35:00 [facility] PHOSPHORUS 2023-07-21 Martinez, Jose Juan Harjeet [facility] 04:35:00 [facility] MAGNESIUM 2023-07-21 Martinez, Jose Juan Harjeet [facility] 04:35:00 [facility] CBC W/PLT COUNT & AUTO 2023-07-21 Stew, Solomon El [facility] DIFFERENTIAL 04:35:00 [facility] (CELLAVISION MANUAL DIFF) 2023-07-21 Stew, Solomon El [facility] 04:35:00 [facility] POCT-GLUCOSE METER 2023-07-20 Hasan, Rosalina Ali [facility] 21:41:00 [facility] POCT-GLUCOSE METER 2023-07-20 Hasan, Rosalina Ali [facility] 18:01:00 [facility] CBC W/PLT COUNT & AUTO 2023-07-20 Stew, Solomon El [facility] DIFFERENTIAL 04:47:00 [facility] BASIC METABOLIC PANEL 2023-07-20 Stew, Solomon El [facility] 04:47:00 [facility] HEMOGLOBIN A1C 2023-07-20 Martinez, Jose Juan Harjeet [facility] 04:47:00 [facility] PHOSPHORUS 2023-07-20 Martinez, Jose Juan Harjeet [facility] 04:47:00 [facility] MAGNESIUM 2023-07-20 Martinez, Jose Juan Harjeet [facility] 04:47:00 [facility] CBC W/PLT COUNT & AUTO 2023-07-20 Stew, Solomon El [facility] DIFFERENTIAL 04:47:00 [facility] (CELLAVISION MANUAL DIFF) 2023-07-20 Stew, Solomon El [facility] 04:47:00 [facility] HEMOGLOBIN AND HEMATOCRIT 2023 Martinez, Jose Juan Harjeet [facility] 18:14:00 [facility] POCT-GLUCOSE METER 2023 Martinez, Jose Juan Harjeet [facility] 16:38:00 [facility] POCT-GLUCOSE METER 2023 Martinez, Jose Juan Harjeet [facility] 04:51:00 [facility] PHOSPHORUS 2023 Stew, Solomon Le [facility] 03:14:00 [facility] MAGNESIUM 2023 Stew, Solomon El [facility] 03:14:00 [facility] CBC W/PLT COUNT & AUTO 2023 Stew, Solomon El [facility] DIFFERENTIAL 03:14:00 [facility] BASIC METABOLIC PANEL 2023 Stew, Solomon El [facility] 03:14:00 [facility] CBC W/PLT COUNT & AUTO 2023 Stew, Solomon El [facility] DIFFERENTIAL 03:14:00 [facility] (CELLAVISION MANUAL DIFF) 2023 Stew, Solomon El [facility] 03:14:00 [facility] POCT-GLUCOSE METER 2023-07-18 Martinez, Ojse Juan Harjeet [facility] 21:10:00 [facility] POCT-GLUCOSE METER 2023-07-18 Martinez, Jose Juan Harjeet [facility] 16:40:00 [facility] POCT-GLUCOSE METER 2023-07-18 Martinez, Jose Juan Harjeet [facility] 11:03:00 [facility] POCT-GLUCOSE METER 2023-07-18 Martinez, Jose Juan Harjeet [facility] 08:15:00 [facility] PHOSPHORUS 2023-07-18 Stew, Solomon El [facility] 02:40:00 [facility] MAGNESIUM 2023-07-18 Stew, Solomon El [facility] 02:40:00 [facility] CBC W/PLT COUNT & AUTO 2023-07-18 Stew, Solomon El [facility] DIFFERENTIAL 02:40:00 [facility] BASIC METABOLIC PANEL 2023-07-18 Stew, Solomon El [facility] 02:40:00 [facility] CBC W/PLT COUNT & AUTO 2023-07-18 Stew, Solomon El [facility] DIFFERENTIAL 02:40:00 [facility] (CELLAVISION MANUAL DIFF) 2023-07-18 Stew, Solomon El [facility] 02:40:00 [facility] POCT-GLUCOSE METER 2023-07-17 Martinez, Jose Juan Harjeet [facility] 20:57:00 [facility] POCT-GLUCOSE METER 2023-07-17 Martinez, Jose Juan Harjeet [facility] 16:32:00 [facility] ALBUMIN 2023-07-[address] [facility] 12:55:00 [facility] PREALBUMIN 2023-07-[address] [facility] 12:55:00 [facility] POCT-GLUCOSE METER 2023-07-17 Martinez, Jose Juan Harjeet [facility] 12:03:00 [facility] PHOSPHORUS 2023-07-17 Stew, Solomon El [facility] 04:19:00 [facility] MAGNESIUM 2023-07-17 Stew, Solomon El [facility] 04:19:00 [facility] CBC W/PLT COUNT & AUTO 2023-07-17 Stew, Solomon El [facility] DIFFERENTIAL 04:19:00 [facility] BASIC METABOLIC PANEL 2023-07-17 Stew, Solomon El [facility] 04:19:00 [facility] CBC W/PLT COUNT & AUTO 2023-07-17 Stew, Solomon El [facility] DIFFERENTIAL 04:19:00 [facility] (CELLAVISION MANUAL DIFF) 2023-07-17 Stew, Solomon El [facility] 04:19:00 [facility] PREPARE RBC 2023-07-[address] [facility] 00:43:00 [facility] POCT-GLUCOSE METER 2023-07-16 Martinez, Jose Juan Harjeet [facility] 23:51:00 [facility] CALCIUM, IONIZED 2023-07-16 Stew, Solomon El [facility] 22:49:00 [facility] PHOSPHORUS 2023-07-16 Stew, Solomon El [facility] 22:49:00 [facility] MAGNESIUM 2023-07-16 Stew, Solomon El [facility] 22:49:00 [facility] CBC W/PLT COUNT & AUTO 2023-07-16 Stew, Solomon El [facility] DIFFERENTIAL 22:49:00 [facility] BASIC METABOLIC PANEL 2023-07-16 Stew, Solomon El [facility] 22:49:00 [facility] CBC W/PLT COUNT & AUTO 2023-07-16 Stew, Solomon El [facility] DIFFERENTIAL 22:49:00 [facility] (CELLAVISION MANUAL DIFF) 2023-07-16 Stew, Solomon El [facility] 22:49:00 [facility] POCT-ACT 2023-07-16 Martinez, Jose Juan Harjeet [facility] 20:15:00 [facility] POCT-ACT 2023-07-16 Martinez, Jose Juan Harjeet [facility] 19:40:00 [facility] POCT-ACT 2023-07-16 Martinez, Jose Juan Harjeet [facility] 19:04:00 [facility] RRL CRITICAL LABS 2023-07-16 Lyubashevsky, [facility] (ABG,NA,K,H&H,GLUCOSE) 19:00:00 [facility] enter CALCIUM, IONIZED 2023-07-16 Lyubashevsky, [facility] 19:00:00 [facility] BLOOD GAS, ARTERIAL 2023-07-16 Lyubashevsky, [facility] 19:00:00 [facility] SODIUM NA-STAT LAB 2023-07-16 Lyubashevcharlettey, [facility] 19:00:00 [facility] POTASSIUM-STAT LAB 2023-07-16 Lyubashevsky, [facility] 19:00:00 [facility] GLUCOSE-STAT LAB 2023-07-16 Lyubashevcharlettey, [facility] 19:00:00 [facility] HGB/HCT (H&H) - STAT LAB 2023-07-16 Lyubashmarlenyy, [facility] 19:00:00 [facility] POCT-ACT 2023-07-16 MartinezJose Juan [address] [facility] 18:27:00 [facility] RRL CRITICAL LABS 2023-07-16 Lyubashmarlenyy, [facility] (ABG,NA,K,H&H,GLUCOSE) 18:15:51 [facility] enter CALCIUM, IONIZED 2023-07-16 Lyubashmarlenyy, [facility] 18:15:51 [facility] BLOOD GAS, ARTERIAL 2023-07-16 Lyubashmarlenyy, [facility] 18:15:51 [facility] SODIUM NA-STAT LAB 2023-07-16 Lyubashmarlenyy, [facility] 18:15:51 [facility] POTASSIUM-STAT LAB 2023-07-16 Lyubashevcharlettey, [facility] 18:15:51 [facility] GLUCOSE-STAT LAB 2023-07-16 Lyubashmarlenyy, [facility] 18:15:51 [facility] HGB/HCT (H&H) - STAT LAB 2023-07-16 Lyubashmarlenyy, [facility] 18:15:51 [facility] RRL CRITICAL LABS 2023-07-16 Dacia, Parvez [facility] (ABG,NA,K,H&H,GLUCOSE) 16:51:03 [facility] enter CALCIUM, IONIZED 2023-07-16 Dacia, Parvez [facility] 16:51:03 [facility] BLOOD GAS, ARTERIAL 2023-07-16 Dacia, Parvez [facility] 16:51:03 [facility] SODIUM NA-STAT LAB 2023-07-16 Dacia, Parvez [facility] 16:51:03 [facility] POTASSIUM-STAT LAB 2023-07-16 Dacia, Parvez [facility] 16:51:03 [facility] GLUCOSE-STAT LAB 2023-07-[address] [facility] 16:51:03 [facility] HGB/HCT (H&H) - STAT LAB 2023-07-[address] [facility] 16:51:03 [facility] REPAIR,ANEURYSM FEMORAL/POPLITEAL 2023-07-[address] [facility] 15:31:00 [facility] VENOUS DOPPLER LEGS BILATERAL 2023-07-[address] [facility] 08:49:22 [facility] CBC (HEMOGRAM ONLY) 2023-07-[address] [facility] 04:19:00 [facility] BASIC METABOLIC PANEL 2023-07-16 Nikita[facility] Deja [facility] 04:19:00 [facility] PROTHROMBIN TIME/INR 2023-07-16 Nikita[facility] 04:19:00 [facility] TYPE AND SCREEN, AUTOMATED 2023-07-15 Nikita[facility] 16:29:00 [facility] BASIC METABOLIC PANEL 2023-07-13 Jenny, Tyron [facility] 05:47:00 [facility] CBC (HEMOGRAM ONLY) 2023-07-13 Jenny, Tyron [facility] 05:47:00 [facility] VEIN MAPPING LEGS BILATERAL 2023-07-[address] [facility] 19:45:00 [facility] BASIC METABOLIC PANEL 2023-07-12 Jenny, Tyron [facility] 04:23:00 [facility] CBC (HEMOGRAM ONLY) 2023-07-[address] [facility] 04:23:00 [facility] PSA 2023-07-12 Martinez, Jose Juan Harjeet [facility] 04:23:00 [facility] 2D ECHO W/ DOPPLER (CW/PW/COLOR) 2023-07-[address] [facility] 09:25:00 [facility] BASIC METABOLIC PANEL 2023-07-11 Jenny, Tyron [facility] 05:07:00 [facility] CBC (HEMOGRAM ONLY) 2023-07-[address] [facility] 05:07:00 [facility] MAGNESIUM 2023-07-11 Martinez, Jose Juan Harjeet [facility] 05:07:00 [facility] PHOSPHORUS 2023-07-[address] [facility] 05:07:00 [facility] ABORH, MANUAL 2023-07-[address] [facility] 18:26:00 [facility] SARS-COV2/RT-PCR ([facility]) 2023-07-[address] [facility] 17:34:00 [facility] TYPE AND SCREEN, AUTOMATED 2023-07-10 [facility] 17:34:00 [facility] ECG 12-LEAD 2023-07-[address] [facility] 17:25:45 [facility] ECG 12-LEAD 2023-07-10 Unknown, Hl7 [facility] 17:25:45 [facility] CTA AAA AND RUNOFF 2023-07-[address] [facility] 16:25:38 [facility] HIGH SENSITIVITY TROPONIN I 2023-07-[address] [facility] 12:32:00 [facility] URINE CULTURE 2023-07-[address] [facility] 08:45:00 [facility] URINALYSIS W/ REFLEX URINE CULTURE 2023-07-[address] [facility] 08:45:00 [facility] BLOOD CULTURE 2023-07-[address] [facility] 04:27:00 [facility] BASIC METABOLIC PANEL 2023-07-[address] [facility] 04:26:00 [facility] MAGNESIUM 2023-07-[address] [facility] 04:26:00 [facility] PHOSPHORUS 2023-07-[address] [facility] 04:26:00 [facility] CBC W/PLT COUNT & AUTO 2023-07-[address] [facility] DIFFERENTIAL 04:26:00 [facility] CBC W/PLT COUNT & AUTO 2023-07-[address] [facility] DIFFERENTIAL 04:26:00 [facility] Plan of Care Planned Activity Planned Date Details Comments Source Future Scheduled 2027-08-08 DTAP/TDAP/TD VACCINES CH I [...] Ce nter Vaccine (#1)] Future Scheduled 2022-11-[address] [facility] (procedure) [code = 048381259] Future Scheduled [address] [facility] 00:[facility]00 [facility] (procedure) [code = 365127341] Future Scheduled [address] 00:00[facility]00 [facility] (procedure) [code = 229343097] Future Scheduled [address] [facility] 00:00[facility]00 [facility] (procedure) [code = 633581299] Future Scheduled 1996 SHINGLES VACCINES (1 [facility] [...] Date/Time Type Type Clinicians Facility Department ID 2023-08-[address] [facility] Gastro [id number] [facility] 23:00:51 [facility] 2023-08-13 Inpatient ER JENNY [facility] [id number] SLE 19:15:39 TYRON 2023-08-12 [facility] [id number] SLEH 13:03:35 TYRON 2023-08-12 Inpatient ER BLAYNE [facility] [id number] SLEH 12:53:18 TAYLOR 2023-08-12 Inpatient ER BLAYNE [facility] [id number] SLEH 11:07:44 TAYLOR 2023-08-12 Inpatient ER JENNY SLERosa [facility]H [id number] SLEH 10:55:48 TYRON 2023-07-22 Inpatient ER ABILIO HERNANDEZ [facility] SLEH [id number] SLEH 09:18:36 2023-07-16 Inpatient ER WILVER SLE [facility] [id number] SLEH 07:31:47 RAMYAR 2023-07-12 Inpatient ER WILVER SLE SLEH [id number] SLEH 17:49:59 BERNABE 2023-07-11 Inpatient ER JOSE JUAN MARTINEZ SLEH SLEH [id number] SLEH 07:38:53 2020-11-03 Outpatient DAVE, [facility] 14:19:59 BEATRIZ 2023-09-05 2023-09-05 Transition LloydLUIS MIGUELJose 1.2.840.114 [id number] Univers 00:00:00 00:00:00 of Care Grace DE [place] 350.1.13.10 i ty [facility] [place] [id number] [facility] [address] 2023-08-28 2023-09-04 [facility] Art 1.2.8 40.114 [id number] Univers 03:17:00 19:42:00 Encounter Kiesha Escudero 350.1.13.10 ity [facility] 4.2.7.2.686 [place] Paulie Arredondo [id number] Medical [address] 2023-08-28 2023-09-04 Inpatient U [facility] [id number] Univers 03:17:00 19:42:00 PEACE itkayleen of [facility] 2023-08-30 2023-08-30 Surgery Sivakumar Amador 1.2.840.114 10 [id number] Univers 18:00:00 19:00:00 Jose DENNY 350.1.13.10 it [facility] 4.2.7.2.686 Rick as [id number] [facility] [address] 2023-08-28 2023-08-28 Anesthesia Vickey, 1.2.840.5 [id number] Univers 11:43:00 12:31:00 Event Olegario 77429.1.1 ity of 3.104.2.7 [place] .3.137295 Medica l .8 Branch 2023-08-28 2023-08-28 Surgery Reji, 1.2.840.6 [id number] Univers 10:41:00 11:23:00 Velasquez 25033.1.1 ity of 3.104.2.7 [place] .3.514326 Medica l .8 Branch 2023-08-28 2023-08-28 Travel 1.2.840.1 1.2.147.434 [id number] Univers 00:00:00 00:00:00 17588.1.1 350.1.13.10 ity of 3.104.2.7 [place].3.698 [place] .3.298015 084.8 Medica l .8 [place] 2023-08-12 2023-08-17 Inpatient ER DAREK [facility] Gastro [id number] SLEH 00:02:00 20:00:00 [facility] 2023-08-12 2023-08-12 Inpatient ER [facility] 2 [id number] [facility] 11:53:29 00:00:00 NAHID KNAPP 2023-07-09 2023-07-23 Inpatient ER JUAN JOSE JUAN [facility] Surgery [id number] [facility] 20:54:00 14:45:00 2023-07-09 2023-07-23 Hospital ER Heydi Castaneda [facility] [id number] [facility] 20:54:00 14:45:00 Encounter Tyron Alvarado [facility] JuanFormerly [facility] Rosalina Almonte [facility] Abilio Hernandez 2023-07-16 2023-07-[address] [facility] [id number] [facility] 15:41:00 22:13:00 Event Blayne Larose [facility] 2023-07-16 2023-07-[address] [facility] [id number] 15:00:00 18:46:00 [facility] 2023-07-10 2023-07-10 [facility]patient [facility] [id number] SLE 16:07:16 00:00:00 BERNABE 2023-07-10 2023-07-10 Outpatient JAIRO PETTIT [facility] [id number] [facility] 00:00:00 00:00:00 BERNABE 2023-07-10 2023-07-[address] [facility] [id number] 00:00:00 00:00:00 Only [facility] 2023-07-09 2023-07-09 Travel [facility] [id number] [facility] 00:[facility] 00:00:00 [facility] Results Test Description Test Time Test Comments Results Result Comments Source Lactic Acid Whole Blood 2023-09-03 23:43:11 Test Item Value Reference Range Interpretation Comme nts LACTIC ACID (test code = 1706386270) 0.81 mmol/L 0.50-2.20 QUES Lab Interpretation (test code = 68216-5) [facility] Test Item Value Reference Range Interpretation Comments MAGNESIUM (test code = 2988028617) 2.5 mg/dL 1.7-2.4 H Lab Interpretation (test code = Abnormal 62153-6) [facility] 00:57:37 Test Item Value Reference Range Interpretation Comments PHOSPHORUS (test code = 9760920892) 2.5 mg/dL 2.5-5.0 Lab Interpretation (test code = Normal 07594-2) [facility] (NA, K, CL, CO2, GLUCOSE, BUN, CREATININE, CA)2023-09-02 09:47:54 Test Item Value Reference Range Interpretation Comments NA (test code = 144 mmol/L 135-145 5492877664) K (test code = 3.0 mmol/L 3.5-5.0 L 9320392741) CL (test code = 112 mmol/L 98-108 H 8675999887) CO2 TOTAL (test code = 24 mmol/L 23-31 3828996672) AGAP (test code = 8 2-16 2115676126) BUN (test code = 20 mg/dL - 7797029075) GLUCOSE (test code = 136 mg/dL 70-110 H 6538394603) CREATININE (test code = 0.74 mg/dL 0.60-1.25 9186566584) CALCIUM (test code = 8.1 mg/dL 8.6-10.6 L 8639886139) eGFR (test code = 102.6 mL/min/1.73m2 2670759720) RAJESH (test code = RAJESH) Association of Glomerular Filtration Rate (GFR) and Staging of Kidney Disease* + --+ --+ ------+| GFR (mL/min/1.73 m2) ?| With Kidney Damage ?| ?Without Kidney Damage+ --------+ --------+ +| ?>90 ?| ?Stage one ?| ? Normal ?+ ---+ ---+ -------+| ?60-89 ?| ?Stage two ?| ? Decreased GFR ? + --+ --+ ------+| ?30-59 ?| ?Stage three ?| ? Stage three ? + --+ --+ ------+| ?15-29 ?| ?Stage four ? | ? Stage four ?+ ---+ ---+ -------+| ?<15 (or dialysis) ? ?| ?Stage five ? | ? Stage five ?+ ---+ ---+ -------+ *Each stage assumes the associated GFR level has been in effect for at least three months. ?Stages 1 to 5, with or without kidney disease, indicate chronic kidney disease. Notes: Determination of stages one and two (with eGFR >59mL/min/1.73 m2) requires estimation of kidney damage for at least three months as defined by structural or functional abnormalities of the kidney, manifested by either:Pathological abnormalities or Markers of kidney damage (including abnormalities in the composition of the blood or urine or abnormalities in imaging tests). Lab Interpretation Abnormal (test code = 04021-5) [facility] METABOLIC PANEL (NA, K, CL, CO2, GLUCOSE, BUN, CREATININE, CA)2023-09-02 09:47:54 Test Item Value Reference Range Interpretation Comments NA (test code = 144 mmol/L 135-145 9827668577) K (test code = 3.0 mmol/L 3.5-5.0 L 2839134342) CL (test code = 112 mmol/L 98-108 H 3032301037) CO2 TOTAL (test code = 24 mmol/L 23-31 8625816437) AGAP (test code = 8 2-16 7786752256) BUN (test code = 20 mg/dL 7-23 9810330343) GLUCOSE (test code = 136 mg/dL 70-110 H 7838348248) CREATININE (test code = 0.74 mg/dL 0.60-1.25 5653125850) CALCIUM (test code = 8.1 mg/dL 8.6-10.6 L 0608473516) eGFR (test code = 102.6 mL/min/1.73m2 9075851587) RAJESH (test code = RAJESH) Association of Glomerular Filtration Rate (GFR) and Staging of Kidney Disease* + --+ --+ ------+| GFR (mL/min/1.73 m2) ?| With Kidney Damage ?| ?Without Kidney Damage+ --------+ --------+ +| ?>90 ?| ?Stage one ?| ? Normal ?+ ---+ ---+ -------+| ?60-89 ?| ?Stage two ?| ? Decreased GFR ? + --+ --+ ------+| ?30-59 ?| ?Stage three ?| ? Stage three ? + --+ --+ ------+| ?15-29 ?| ?Stage four ? | ? Stage four ?+ ---+ ---+ -------+| ?<15 (or dialysis) ? ?| ?Stage five ? | ? Stage five ?+ ---+ ---+ -------+ *Each stage assumes the associated GFR level has been in effect for at least three months. ?Stages 1 to 5, with or without kidney disease, indicate chronic kidney disease. Notes: Determination of stages one and two (with eGFR >59mL/min/1.73 m2) requires estimation of kidney damage for at least three months as defined by structural or functional abnormalities of the kidney, manifested by either:Pathological abnormalities or Markers of kidney damage (including abnormalities in the composition of the blood or urine or abnormalities in imaging tests). Lab Interpretation Abnormal (test code = 32123-8) [facility] WITHOUT [id number] 09:25:14 Test Item Value Reference Range Interpretation Comments WBC (test code = 6690-2) 14.79 See_Comment H [A utomated message] The system [employer] generated this result transmit gonsalo reference range : 4.20 - 10.70 10*3/?L. The reference range was not used to interpret this result as normal/abnormal . RBC (test code = 789-8) 3.12 See_Comment L [Au tomated message] The system [employer] generated this result transmit gonsalo reference range : 4.26 - 5.52 10* 6/?L. The reference r ramiro was not used to interpret this result as normal/abnormal . HGB (test code = 718-7) 8.8 g/dL 12.2-16.4 L HCT (test code = 4544-3) 26.4 % 38.4-49.3 L MCH (test code = 785-6) 28.2 pg 26.1-32.7 MCV (test code = 787-2) 84.6 fL 81.7-95.6 MCHC (test code = 786-4) 33.3 g/dL 31.2-35.0 PLT (test code = 777-3) 233 See_Comment [Au tomated message] The system [employer] generated this result transmit gonsalo reference range : 150 - 328 10*3/?L. The reference range was not used to interpret this result as normal/abnormal . MPV (test code = 10.1 fL 9.8-13.0 02567-8) RDW-CV (test code = 18.0 % 12.1-15.4 H 788-0) RDW-SD (test code = 54.8 fL 38.5-51.6 H 98519-7) NRBC x10^3 (test code = See_Comment [Au tomated message] 2342919939) The system [employer] generated this result transmit gonsalo reference range : 10*3/?L. The reference range was not used to interpret this result as normal/abnormal . NRBC/100 WBC (test code 0.0 See_Comment [Au tomated message] = 2753945357) The system [facility] generated this result transmit gonsalo reference range : 0.0 - 10.0 /100 WBC s. The reference r ramiro was not used to interpret this result as normal/abnormal . IPF % (test code = 3872789559) Lab Interpretation (test Abnormal code = 52114-7) [facility] WITHOUT [id number] 09:25:14 Test Item Value Reference Range Interpretation Comments WBC (test code = 6690-2) 14.79 See_Comment H [A utomated message] The system [employer] generated this result transmit gonsalo reference range : 4.20 - 10.70 10*3/?L. The reference range was not used to interpret this result as normal/abnormal . RBC (test code = 789-8) 3.12 See_Comment L [Au tomated message] The system [employer] generated this result transmit gonsalo reference range : 4.26 - 5.52 10* 6/?L. The reference r ramiro was not used to interpret this result as normal/abnormal . HGB (test code = 718-7) 8.8 g/dL 12.2-16.4 L HCT (test code = 4544-3) 26.4 % 38.4-49.3 L MCH (test code = 785-6) 28.2 pg 26.1-32.7 MCV (test code = 787-2) 84.6 fL 81.7-95.6 MCHC (test code = 786-4) 33.3 g/dL 31.2-35.0 PLT (test code = 777-3) 233 See_Comment [Au tomated message] The system [employer] generated this result transmit gonsalo reference range : 150 - 328 10*3/?L. The reference range was not used to interpret this result as normal/abnormal . MPV (test code = 10.1 fL 9.8-13.0 44972-3) RDW-CV (test code = 18.0 % 12.1-15.4 H 788-0) RDW-SD (test code = 54.8 fL 38.5-51.6 H 28107-9) NRBC x10^3 (test code = See_Comment [Au tomated message] 2504522646) The system [employer] generated this result transmit gonsalo reference range : 10*3/?L. The reference range was not used to interpret this result as normal/abnormal . NRBC/100 WBC (test code 0.0 See_Comment [Au tomated message] = 0315243363) The system [facility] generated this result transmit gonsalo reference range : 0.0 - 10.0 /100 WBC s. The reference r ramiro was not used to interpret this result as normal/abnormal . IPF % (test code = 0546427729) Lab Interpretation (test Abnormal code = 36658-0) [facility] WITHOUT [id number] 01:42:24 Test Item Value Reference Range Interpretation Comments WBC (test code = 6690-2) 16.74 See_Comment H [A utomated message] The system [employer] [facility] generated this result transmit gonsalo reference range : 4.20 - 10.70 10*3/?L. The reference range was not used to interpret this result as normal/abnormal . RBC (test code = 789-8) 3.06 See_Comment L [Au tomated message] The system [facility] [facility] generated this result transmit gonsalo reference range : 4.26 - 5.52 10* 6/?L. The reference r ramiro was not used to interpret this result as normal/abnormal . HGB (test code = 718-7) 8.8 g/dL 12.2-16.4 L HCT (test code = 4544-3) 27.3 % 38.4-49.3 L MCH (test code = 785-6) 28.8 pg 26.1-32.7 MCV (test code = 787-2) 89.2 fL 81.7-95.6 MCHC (test code = 786-4) 32.2 g/dL 31.2-35.0 PLT (test code = 777-3) 242 See_Comment [Au tomated message] The system [employer] generated this result transmit gonsalo reference range : 150 - 328 10*3/?L. The reference range was not used to interpret this result as normal/abnormal . MPV (test code = 10.6 fL 9.8-13.0 23436-6) RDW-CV (test code = 18.2 % 12.1-15.4 H 788-0) RDW-SD (test code = 56.7 fL 38.5-51.6 H 65735-2) NRBC x10^3 (test code = See_Comment [Au tomated message] 0959815737) The system [employer] generated this result transmit gonsalo reference range : 10*3/?L. The reference range was not used to interpret this result as normal/abnormal . NRBC/100 WBC (test code 0.0 See_Comment [Au tomated message] = 8604346487) The system [employer] generated this result transmit gonsalo reference range : 0.0 - 10.0 /100 WBC s. The reference r ramiro was not used to interpret this result as normal/abnormal . IPF % (test code = 3092386479) Lab Interpretation (test Abnormal code = 94572-6) [facility] WITHOUT [id number] 01:42:24 Test Item Value Reference Range Interpretation Comments WBC (test code = 6690-2) 16.74 See_Comment H [A utomated message] The system [employer] generated this result transmit gonsalo reference range : 4.20 - 10.70 10*3/?L. The reference range was not used to interpret this result as normal/abnormal . RBC (test code = 789-8) 3.06 See_Comment L [Au tomated message] The system [employer] generated this result transmit gonsalo reference range : 4.26 - 5.52 10* 6/?L. The reference r ramiro was not used to interpret this result as normal/abnormal . HGB (test code = 718-7) 8.8 g/dL 12.2-16.4 L HCT (test code = 4544-3) 27.3 % 38.4-49.3 L MCH (test code = 785-6) 28.8 pg 26.1-32.7 MCV (test code = 787-2) 89.2 fL 81.7-95.6 MCHC (test code = 786-4) 32.2 g/dL 31.2-35.0 PLT (test code = 777-3) 242 See_Comment [Au tomated message] The system [employer] generated this result transmit gonsalo reference range : 150 - 328 10*3/?L. The reference range was not used to interpret this result as normal/abnormal . MPV (test code = 10.6 fL 9.8-13.0 43715-6) RDW-CV (test code = 18.2 % 12.1-15.4 H 788-0) RDW-SD (test code = 56.7 fL 38.5-51.6 H 08572-6) NRBC x10^3 (test code = See_Comment [Au tomated message] 7044076521) The system [employer] generated this result transmit gonsalo reference range : 10*3/?L. The reference range was not used to interpret this result as normal/abnormal . NRBC/100 WBC (test code 0.0 See_Comment [Au tomated message] = 3348717519) The system [facility] generated this result transmit gonsalo reference range : 0.0 - 10.0 /100 WBC s. The reference r ramiro was not used to interpret this result as normal/abnormal . IPF % (test code = 3400142158) Lab Interpretation (test Abnormal code = 40122-2) [facility] WITHOUT [id number] 20:25:27 Test Item Value Reference Range Interpretation Comments WBC (test code = 6690-2) 20.00 See_Comment H [A utomated message] The system [employer] generated this result transmit gonsalo reference range : 4.20 - 10.70 10*3/?L. The reference range was not used to interpret this result as normal/abnormal . RBC (test code = 789-8) 3.03 See_Comment L [Au tomated message] The system [employer] generated this result transmit gonsalo reference range : 4.26 - 5.52 10* 6/?L. The reference r ramiro was not used to interpret this result as normal/abnormal . HGB (test code = 718-7) 8.7 g/dL 12.2-16.4 L HCT (test code = 4544-3) 27.1 % 38.4-49.3 L MCH (test code = 785-6) 28.7 pg 26.1-32.7 MCV (test code = 787-2) 89.4 fL 81.7-95.6 MCHC (test code = 786-4) 32.1 g/dL 31.2-35.0 PLT (test code = 777-3) 285 See_Comment [Au tomated message] The system [employer] generated this result transmit gonsalo reference range : 150 - 328 10*3/?L. The reference range was not used to interpret this result as normal/abnormal . MPV (test code = 10.9 fL 9.8-13.0 93099-3) RDW-CV (test code = 17.8 % 12.1-15.4 H 788-0) RDW-SD (test code = 55.5 fL 38.5-51.6 H 53102-0) NRBC x10^3 (test code = See_Comment [Au tomated message] 1337216057) The system [employer] generated this result transmit gonsalo reference range : 10*3/?L. The reference range was not used to interpret this result as normal/abnormal . NRBC/100 WBC (test code 0.0 See_Comment [Au tomated message] = 9703631119) The system [facility] generated this result transmit gonsalo reference range : 0.0 - 10.0 /100 WBC s. The reference r ramiro was not used to interpret this result as normal/abnormal . IPF % (test code = 7569196357) Lab Interpretation (test Abnormal code = 74670-6) [facility] WITHOUT [id number] 20:25:27 Test Item Value Reference Range Interpretation Comments WBC (test code = 6690-2) 20.00 See_Comment H [A utomated message] The system [employer] generated this result transmit gonsalo reference range : 4.20 - 10.70 10*3/?L. The reference range was not used to interpret this result as normal/abnormal . RBC (test code = 789-8) 3.03 See_Comment L [Au tomated message] The system [employer] generated this result transmit gonsalo reference range : 4.26 - 5.52 10* 6/?L. The reference r ramiro was not used to interpret this result as normal/abnormal . HGB (test code = 718-7) 8.7 g/dL 12.2-16.4 L HCT (test code = 4544-3) 27.1 % 38.4-49.3 L MCH (test code = 785-6) 28.7 pg 26.1-32.7 MCV (test code = 787-2) 89.4 fL 81.7-95.6 MCHC (test code = 786-4) 32.1 g/dL 31.2-35.0 PLT (test code = 777-3) 285 See_Comment [Au tomated message] The system [employer] generated this result transmit gonsalo reference range : 150 - 328 10*3/?L. The reference range was not used to interpret this result as normal/abnormal . MPV (test code = 10.9 fL 9.8-13.0 69706-9) RDW-CV (test code = 17.8 % 12.1-15.4 H 788-0) RDW-SD (test code = 55.5 fL 38.5-51.6 H 18879-6) NRBC x10^3 (test code = See_Comment [Au tomated message] 6660263607) The system [employer] generated this result transmit gonsalo reference range : 10*3/?L. The reference range was not used to interpret this result as normal/abnormal . NRBC/100 WBC (test code 0.0 See_Comment [Au tomated message] = 2233122308) The system [employer] generated this result transmit gonsalo reference range : 0.0 - 10.0 /100 WBC s. The reference r ramiro was not used to interpret this result as normal/abnormal . IPF % (test code = 1245063406) Lab Interpretation (test Abnormal code = 61272-5) [facility] (for use with Heparin Infusion)2023-09-01 17:45:38 Test Item Value Reference Range Interpretation Comments APTT Patient (test code 50 See_Comment H [Au tomated message] = 3173-2) The system [employer] generated this result transmitted ref erence range: 26 - 36 Seconds. The reference range was not used to int erpret this result as normal/abnormal . Lab Interpretation (test Abnormal code = 83853-5) [facility] (for use with Heparin Infusion)2023-09-01 17:45:38 Test Item Value Reference Range Interpretation Comments APTT Patient (test code 50 See_Comment H [Au tomated message] = 3173-2) The system [employer] generated this result transmitted ref erence range: 26 - 36 Seconds. The reference range was not used to int erpret this result as normal/abnormal . Lab Interpretation (test Abnormal code = 59414-0) [facility] Packed RBC (in units), 1 Units 2023-09-01 16:53:28 Test Item Value Reference Range Interpretation Comments Cross Match Result Compatible (test code = 4409) ISBT Blood Type Code 5100 (test code = 461735) Unit Blood Type (test O Pos code = 4410) Unit Number (test [id number] code = 4411) Blood Expiration Date [id number] & Time (test code = 350794) Status Information Issued (test code = 4412) Product Red Blood Cells Identification (test code = 4413) Product Code (test [id number] Performed at [facility] code = 4414) Laboratory Services - [facility] Blood [address] [address] Free: [phone] A No. [id number] [facility] Packed RBC (in units), 1 Units 2023-09-01 16:53:28 Test Item Value Reference Range Interpretation Comments Cross Match Result Compatible (test code = 4409) ISBT Blood Type Code 5100 (test code = 739128) Unit Blood Type (test O Pos code = 4410) Unit Number (test [id number] code = 4411) Blood Expiration Date & Time (test code = 521330) Status Information Issued (test code = 4412) Product Red Blood Cells Identification (test code = 4413) Product Code (test [id number] Performed at [facility] code = 4414) Laboratory Services - [facility] Blood [address] [address]Pl[address] Free: [phone] A No. [id number] [facility] [id number] 15:16:00 Test Item Value Reference Range Interpretation Comments ABO & RH (test code = 20) O POSITIVE IAT (test code = 1185) Negative [facility] [id number] 15:16:00 Test Item Value Reference Range Interpretation Comments ABO & RH (test code = 20) O POSITIVE IAT (test code = 1185) Negative [facility] (NA, K, CL, CO2, GLUCOSE, BUN, CREATININE, CA)2023-09-01 09:55:16 Test Item Value Reference Range Interpretation Comments NA (test code = 141 mmol/L 135-145 5965828423) K (test code = 3.5 mmol/L 3.5-5.0 7101218909) CL (test code = 111 mmol/L 98-108 H 8497315163) CO2 TOTAL (test code = 25 mmol/L 23-31 6496165735) AGAP (test code = 5 2-16 1055079353) BUN (test code = 16 mg/dL 7-23 5599052037) GLUCOSE (test code = 159 mg/dL 70-110 H 7566788042) CREATININE (test code = 0.73 mg/dL 0.60-1.25 8813106432) CALCIUM (test code = 8.3 mg/dL 8.6-10.6 L 6570148953) eGFR (test code = 104.2 mL/min/1.73m2 3996843166) RAJESH (test code = RAJESH) Association of Glomerular Filtration Rate (GFR) and Staging of Kidney Disease* + --+ --+ ------+| GFR (mL/min/1.73 m2) ?| With Kidney Damage ?| ?Without Kidney Damage+ --------+ --------+ +| ?>90 ?| ?Stage one ?| ? Normal ?+ ---+ ---+ -------+| ?60-89 ?| ?Stage two ?| ? Decreased GFR ? + --+ --+ ------+| ?30-59 ?| ?Stage three ?| ? Stage three ? + --+ --+ ------+| ?15-29 ?| ?Stage four ? | ? Stage four ?+ ---+ ---+ -------+| ?<15 (or dialysis) ? ?| ?Stage five ? | ? Stage five ?+ ---+ ---+ -------+ *Each stage assumes the associated GFR level has been in effect for at least three months. ?Stages 1 to 5, with or without kidney disease, indicate chronic kidney disease. Notes: Determination of stages one and two (with eGFR >59mL/min/1.73 m2) requires estimation of kidney damage for at least three months as defined by structural or functional abnormalities of the kidney, manifested by either:Pathological abnormalities or Markers of kidney damage (including abnormalities in the composition of the blood or urine or abnormalities in imaging tests). Lab Interpretation Abnormal (test code = 07234-8) [facility] METABOLIC PANEL (NA, K, CL, CO2, GLUCOSE, BUN, CREATININE, CA)2023-09-01 09:55:16 Test Item Value Reference Range Interpretation Comments NA (test code = 141 mmol/L 135-145 3479205277) K (test code = 3.5 mmol/L 3.5-5.0 4597523440) CL (test code = 111 mmol/L 98-108 H 1009158363) CO2 TOTAL (test code = 25 mmol/L 23-31 0992469129) AGAP (test code = 5 2-16 3449714511) BUN (test code = 16 mg/dL 7-23 7333196764) GLUCOSE (test code = 159 mg/dL 70-110 H 2851325100) CREATININE (test code = 0.73 mg/dL 0.60-1.25 3295926121) CALCIUM (test code = 8.3 mg/dL 8.6-10.6 L 4730771707) eGFR (test code = 104.2 mL/min/1.73m2 [id number]) RAJESH (test code = RAJESH) Association of Glomerular Filtration Rate (GFR) and Staging of Kidney Disease* + --+ --+ ------+| GFR (mL/min/1.73 m2) ?| With Kidney Damage ?| ?Without Kidney Damage+ --------+ --------+ +| ?>90 ?| ?Stage one ?| ? Normal ?+ ---+ ---+ -------+| ?60-89 ?| ?Stage two ?| ? Decreased GFR ? + --+ --+ ------+| ?30-59 ?| ?Stage three ?| ? Stage three ? + --+ --+ ------+| ?15-29 ?| ?Stage four ? | ? Stage four ?+ ---+ ---+ -------+| ?<15 (or dialysis) ? ?| ?Stage five ? | ? Stage five ?+ ---+ ---+ -------+ *Each stage assumes the associated GFR level has been in effect for at least three months. ?Stages 1 to 5, with or without kidney disease, indicate chronic kidney disease. Notes: Determination of stages one and two (with eGFR >59mL/min/1.73 m2) requires estimation of kidney damage for at least three months as defined by structural or functional abnormalities of the kidney, manifested by either:Pathological abnormalities or Markers of kidney damage (including abnormalities in the composition of the blood or urine or abnormalities in imaging tests). Lab Interpretation Abnormal (test code = 00593-5) [facility] (for use with Heparin Infusion)2023-09-01 09:47:57 Test Item Value Reference Range Interpretation Comments APTT Patient (test code 38 See_Comment H [Au tomated message] = 3173-2) The system [employer] generated this result transmitted ref erence range: 26 - 36 Seconds. The reference range was not used to int erpret this result as normal/abnormal . Lab Interpretation (test Abnormal code = 12756-0) [facility] (for use with Heparin Infusion)2023-09-01 09:47:57 Test Item Value Reference Range Interpretation Comments APTT Patient (test code 38 See_Comment H [Au tomated message] = 3173-2) The system [employer] generated this result transmitted ref erence range: 26 - 36 Seconds. The reference range was not used to int erpret this result as normal/abnormal . Lab Interpretation (test Abnormal code = 72743-5) [facility] Without [id number] 09:43:13 Test Item Value Reference Range Interpretation Comments WBC (test code = 6690-2) 25.41 See_Comment H [A utomated message] The system [employer] generated this result transmit gonsalo reference range : 4.20 - 10.70 10*3/?L. The reference range was not used to interpret this result as normal/abnormal . RBC (test code = 789-8) 2.66 See_Comment L [Au tomated message] The system [employer] generated this result transmit gonsalo reference range : 4.26 - 5.52 10* 6/?L. The reference r ramiro was not used to interpret this result as normal/abnormal . HGB (test code = 718-7) 7.6 g/dL 12.2-16.4 L HCT (test code = 4544-3) 23.4 % 38.4-49.3 L MCH (test code = 785-6) 28.6 pg 26.1-32.7 MCV (test code = 787-2) 88.0 fL 81.7-95.6 MCHC (test code = 786-4) 32.5 g/dL 31.2-35.0 PLT (test code = 777-3) 277 See_Comment [Au tomated message] The system [facility] generated this result transmit gonsalo reference range : 150 - 328 10*3/?L. The reference range was not used to interpret this result as normal/abnormal . MPV (test code = 10.6 fL 9.8-13.0 69723-5) RDW-CV (test code = 17.7 % 12.1-15.4 H 788-0) RDW-SD (test code = 54.6 fL 38.5-51.6 H 64983-3) NRBC x10^3 (test code = See_Comment [Au tomated message] [id number]) The system [employer] generated this result transmit gonsalo reference range : 10*3/?L. The reference range was not used to interpret this result as normal/abnormal . NRBC/100 WBC (test code 0.0 See_Comment [Au tomated message] = 8269019935) The system [facility] generated this result transmit gonsalo reference range : 0.0 - 10.0 /100 WBC s. The reference r ramiro was not used to interpret this result as normal/abnormal . IPF % (test code = 2810778093) Lab Interpretation (test Abnormal code = 20194-0) [facility] Without [id number] 09:43:13 Test Item Value Reference Range Interpretation Comments WBC (test code = 6690-2) 25.41 See_Comment H [A utomated message] The system [facility] generated this result transmit gonsalo reference range : 4.20 - 10.70 10*3/?L. The reference range was not used to interpret this result as normal/abnormal . RBC (test code = 789-8) 2.66 See_Comment L [Au tomated message] The system [facility] generated this result transmit gonsalo reference range : 4.26 - 5.52 10* 6/?L. The reference r ramiro was not used to interpret this result as normal/abnormal . HGB (test code = 718-7) 7.6 g/dL 12.2-16.4 L HCT (test code = 4544-3) 23.4 % 38.4-49.3 L MCH (test code = 785-6) 28.6 pg 26.1-32.7 MCV (test code = 787-2) 88.0 fL 81.7-95.6 MCHC (test code = 786-4) 32.5 g/dL 31.2-35.0 PLT (test code = 777-3) 277 See_Comment [Au tomated message] The system [facility] generated this result transmit gonsalo reference range : 150 - 328 10*3/?L. The reference range was not used to interpret this result as normal/abnormal . MPV (test code = 10.6 fL 9.8-13.0 51140-2) RDW-CV (test code = 17.7 % 12.1-15.4 H 788-0) RDW-SD (test code = 54.6 fL 38.5-51.6 H 59655-6) NRBC x10^3 (test code = See_Comment [Au tomated message] [id number]) The system [facility] generated this result transmit gonsalo reference range : 10*3/?L. The reference range was not used to interpret this result as normal/abnormal . NRBC/100 WBC (test code 0.0 See_Comment [Au tomated message] = 3565377353) The system [facility] generated this result transmit gonsalo reference range : 0.0 - 10.0 /100 WBC s. The reference r ramiro was not used to interpret this result as normal/abnormal . IPF % (test code = 9386843008) Lab Interpretation (test Abnormal code = 24698-4) [facility] WITHOUT [id number] 01:34:20 Test Item Value Reference Range Interpretation Comments WBC (test code = 6690-2) 28.45 See_Comment H [A utomated message] The system [facility] generated this result transmit gonsalo reference range : 4.20 - 10.70 10*3/?L. The reference range was not used to interpret this result as normal/abnormal . RBC (test code = 789-8) 2.69 See_Comment L [Au tomated message] The system [employer] generated this result transmit gonsalo reference range : 4.26 - 5.52 10* 6/?L. The reference r ramiro was not used to interpret this result as normal/abnormal . HGB (test code = 718-7) 7.9 g/dL 12.2-16.4 L HCT (test code = 4544-3) 24.5 % 38.4-49.3 L MCH (test code = 785-6) 29.4 pg 26.1-32.7 MCV (test code = 787-2) 91.1 fL 81.7-95.6 MCHC (test code = 786-4) 32.2 g/dL 31.2-35.0 PLT (test code = 777-3) 311 See_Comment [Au tomated message] The system [employer] generated this result transmit gonsalo reference range : 150 - 328 10*3/?L. The reference range was not used to interpret this result as normal/abnormal . MPV (test code = 10.7 fL 9.8-13.0 87529-9) RDW-CV (test code = 17.7 % 12.1-15.4 H 788-0) RDW-SD (test code = 54.4 fL 38.5-51.6 H 78432-3) NRBC x10^3 (test code = See_Comment [Au tomated message] 3420248851) The system [employer] generated this result transmit gonsalo reference range : 10*3/?L. The reference range was not used to interpret this result as normal/abnormal . NRBC/100 WBC (test code 0.0 See_Comment [Au tomated message] = 6926230702) The system [facility] generated this result transmit gonsalo reference range : 0.0 - 10.0 /100 WBC s. The reference r ramiro was not used to interpret this result as normal/abnormal . IPF % (test code = 1562726548) Lab Interpretation (test Abnormal code = 58816-9) [facility] WITHOUT [id number] 01:34:20 Test Item Value Reference Range Interpretation Comments WBC (test code = 6690-2) 28.45 See_Comment H [A utomated message] The system [facility] generated this result transmit gonsalo reference range : 4.20 - 10.70 10*3/?L. The reference range was not used to interpret this result as normal/abnormal . RBC (test code = 789-8) 2.69 See_Comment L [Au tomated message] The system [facility] generated this result transmit gonsalo reference range : 4.26 - 5.52 10* 6/?L. The reference r ramiro was not used to interpret this result as normal/abnormal . HGB (test code = 718-7) 7.9 g/dL 12.2-16.4 L HCT (test code = 4544-3) 24.5 % 38.4-49.3 L MCH (test code = 785-6) 29.4 pg 26.1-32.7 MCV (test code = 787-2) 91.1 fL 81.7-95.6 MCHC (test code = 786-4) 32.2 g/dL 31.2-35.0 PLT (test code = 777-3) 311 See_Comment [Au tomated message] The system [facility] generated this result transmit gonsalo reference range : 150 - 328 10*3/?L. The reference range was not used to interpret this result as normal/abnormal . MPV (test code = 10.7 fL 9.8-13.0 36198-6) RDW-CV (test code = 17.7 % 12.1-15.4 H 788-0) RDW-SD (test code = 54.4 fL 38.5-51.6 H 45550-9) NRBC x10^3 (test code = See_Comment [Au tomated message] 1812532194) The system [facility] generated this result transmit gonsalo reference range : 10*3/?L. The reference range was not used to interpret this result as normal/abnormal . NRBC/100 WBC (test code 0.0 See_Comment [Au tomated message] = 6981066738) The system [facility] generated this result transmit gonsalo reference range : 0.0 - 10.0 /100 WBC s. The reference r ramiro was not used to interpret this result as normal/abnormal . IPF % (test code = 4500938845) Lab Interpretation (test Abnormal code = 24756-9) [facility] [id number] 19:59:22 Test Item Value Reference Range Interpretation Comments PH (test code = 2) 7.51 7.35-7.45 H PCO2 (test code = 28 See_Comment L [Automate d 5637913581) message] The sy stem which generated this result transmitted reference range : 35 - 45 mmHg. The reference range was not used to interpret this result as normal/abnormal . PO2 (test code = 78 See_Comment L [Automated 1677834595) message] The sy stem which generated this result transmitted reference range : 80 - 100 mmHg. The reference range was not used to interpret this result as normal/abnormal . HCO3 (test code = 22 See_Comment [Automate d 9345938841) message] The sy stem which generated this result transmitted reference range : 22 - 26 mEq/L. The reference range was not used to interpret this result as normal/abnormal . BE (test code = -0.2 See_Comment [Automated 4733322743) message] The sy stem which generated this result transmitted reference range : -3.0 - 3.0 mEq/ L. The reference r ramiro was not used to interpret this result as normal/abnormal . THB (test code = 9.0 g/dL 13.5-18.0 L 0070734251) %O2HB (test code = 95.4 % 94.0-99.0 6193911942) %COHB ART (test code = 0.6 % 0.0-1.5 3511406797) %METHB ART (test code = 0.1 % 0.4-1.5 L 7764050594) VOL%O2 ART (test code = 12.2 % 15.0-23.0 L 8694501035) NA (test code = 138 mmol/L 135-145 0622066084) K+ (test code = 3.4 mmol/L 3.5-5.0 L 7868446463) AC CA IONZ (test code = 4.70 mg/dL 4.50-5.30 3784663954) GLUCOSE (test code = 158 mg/dL 70-110 H 5207162539) LACTIC ACID (test code 0.92 mmol/L 0.50-2.20 QUES = 0793252895) Lab Interpretation Abnormal (test code = 79331-0) [facility] [id number] 19:59:22 Test Item Value Reference Range Interpretation Comments PH (test code = 2) 7.51 7.35-7.45 H PCO2 (test code = 28 See_Comment L [Automate d 4282589341) message] The sy stem which generated this result transmitted reference range : 35 - 45 mmHg. The reference range was not used to interpret this result as normal/abnormal . PO2 (test code = 78 See_Comment L [Automated 6249158822) message] The sy stem which generated this result transmitted reference range : 80 - 100 mmHg. The reference range was not used to interpret this result as normal/abnormal . HCO3 (test code = 22 See_Comment [Automate d 5942531974) message] The sy stem which generated this result transmitted reference range : 22 - 26 mEq/L. The reference range was not used to interpret this result as normal/abnormal . BE (test code = -0.2 See_Comment [Automated 6956986168) message] The sy stem which generated this result transmitted reference range : -3.0 - 3.0 mEq/ L. The reference r ramiro was not used to interpret this result as normal/abnormal . THB (test code = 9.0 g/dL 13.5-18.0 L 6227455555) %O2HB (test code = 95.4 % 94.0-99.0 2712276817) %COHB ART (test code = 0.6 % 0.0-1.5 5453079046) %METHB ART (test code = 0.1 % 0.4-1.5 L 4323901031) VOL%O2 ART (test code = 12.2 % 15.0-23.0 L 9119901137) NA (test code = 138 mmol/L 135-145 5043682396) K+ (test code = 3.4 mmol/L 3.5-5.0 L 3320812474) AC CA IONZ (test code = 4.70 mg/dL 4.50-5.30 6875889228) GLUCOSE (test code = 158 mg/dL 70-110 H 4993871768) LACTIC ACID (test code 0.92 mmol/L 0.50-2.20 QUES = 0976150408) Lab Interpretation Abnormal (test code = 93091-0) [facility] (for use with Heparin Infusion)2023-08-31 19:51:29 Test Item Value Reference Range Interpretation Comments APTT Patient (test code 54 See_Comment H [Au tomated message] = 3173-2) The system [employer] generated this result transmitted ref erence range: 26 - 36 Seconds. The reference range was not used to int erpret this result as normal/abnormal . Lab Interpretation (test Abnormal code = 06417-0) [facility] (for use with Heparin Infusion)2023-08-31 19:51:29 Test Item Value Reference Range Interpretation Comments APTT Patient (test code 54 See_Comment H [Au tomated message] = 3173-2) The system [employer] generated this result transmitted ref erence range: 26 - 36 Seconds. The reference range was not used to int erpret this result as normal/abnormal . Lab Interpretation (test Abnormal code = 11467-5) [facility] WITHOUT [id number] 16:00:31 Test Item Value Reference Range Interpretation Comments WBC (test code = 6690-2) 31.36 See_Comment H [A utomated message] The system [employer] generated this result transmit gonsalo reference range : 4.20 - 10.70 10*3/?L. The reference range was not used to interpret this result as normal/abnormal . RBC (test code = 789-8) 2.80 See_Comment L [Au tomated message] The system [employer] generated this result transmit gonsalo reference range : 4.26 - 5.52 10* 6/?L. The reference r ramiro was not used to interpret this result as normal/abnormal . HGB (test code = 718-7) 8.2 g/dL 12.2-16.4 L HCT (test code = 4544-3) 24.9 % 38.4-49.3 L MCH (test code = 785-6) 29.3 pg 26.1-32.7 MCV (test code = 787-2) 88.9 fL 81.7-95.6 MCHC (test code = 786-4) 32.9 g/dL 31.2-35.0 PLT (test code = 777-3) 307 See_Comment [Au tomated message] The system [employer] generated this result transmit gonsalo reference range : 150 - 328 10*3/?L. The reference range was not used to interpret this result as normal/abnormal . MPV (test code = 10.4 fL 9.8-13.0 45840-9) RDW-CV (test code = 17.0 % 12.1-15.4 H 788-0) RDW-SD (test code = 51.8 fL 38.5-51.6 H 91863-3) NRBC x10^3 (test code = See_Comment [Au tomated message] 5566066201) The system [employer] generated this result transmit gonsalo reference range : 10*3/?L. The reference range was not used to interpret this result as normal/abnormal . NRBC/100 WBC (test code 0.0 See_Comment [Au tomated message] = 2169407252) The system [facility] generated this result transmit gonsalo reference range : 0.0 - 10.0 /100 WBC s. The reference r ramiro was not used to interpret this result as normal/abnormal . IPF % (test code = 3993349883) Lab Interpretation (test Abnormal code = 72455-8) [facility] WITHOUT [id number] 16:00:31 Test Item Value Reference Range Interpretation Comments WBC (test code = 6690-2) 31.36 See_Comment H [A utomated message] The system [employer] generated this result transmit gonsalo reference range : 4.20 - 10.70 10*3/?L. The reference range was not used to interpret this result as normal/abnormal . RBC (test code = 789-8) 2.80 See_Comment L [Au tomated message] The system [facility] generated this result transmit gonsalo reference range : 4.26 - 5.52 10* 6/?L. The reference r ramiro was not used to interpret this result as normal/abnormal . HGB (test code = 718-7) 8.2 g/dL 12.2-16.4 L HCT (test code = 4544-3) 24.9 % 38.4-49.3 L MCH (test code = 785-6) 29.3 pg 26.1-32.7 MCV (test code = 787-2) 88.9 fL 81.7-95.6 MCHC (test code = 786-4) 32.9 g/dL 31.2-35.0 PLT (test code = 777-3) 307 See_Comment [Au tomated message] The system [facility] generated this result transmit gonsalo reference range : 150 - 328 10*3/?L. The reference range was not used to interpret this result as normal/abnormal . MPV (test code = 10.4 fL 9.8-13.0 89094-4) RDW-CV (test code = 17.0 % 12.1-15.4 H 788-0) RDW-SD (test code = 51.8 fL 38.5-51.6 H 88326-1) NRBC x10^3 (test code = See_Comment [Au tomated message] 9314759280) The system [facility] generated this result transmit gonsalo reference range : 10*3/?L. The reference range was not used to interpret this result as normal/abnormal . NRBC/100 WBC (test code 0.0 See_Comment [Au tomated message] = 0602077873) The system [facility] generated this result transmit gonsalo reference range : 0.0 - 10.0 /100 WBC s. The reference r ramiro was not used to interpret this result as normal/abnormal . IPF % (test code = 4027858347) Lab Interpretation (test Abnormal code = 07114-6) [facility] WITHOUT [id number] 16:00:31 Test Item Value Reference Range Interpretation Comments WBC (test code = 6690-2) 31.36 See_Comment H [A utomated message] The system [facility] generated this result transmit gonsalo reference range : 4.20 - 10.70 10*3/?L. The reference range was not used to interpret this result as normal/abnormal . RBC (test code = 789-8) 2.80 See_Comment L [Au tomated message] The system [facility] generated this result transmit gonsalo reference range : 4.26 - 5.52 10* 6/?L. The reference r ramiro was not used to interpret this result as normal/abnormal . HGB (test code = 718-7) 8.2 g/dL 12.2-16.4 L HCT (test code = 4544-3) 24.9 % 38.4-49.3 L MCH (test code = 785-6) 29.3 pg 26.1-32.7 MCV (test code = 787-2) 88.9 fL 81.7-95.6 MCHC (test code = 786-4) 32.9 g/dL 31.2-35.0 PLT (test code = 777-3) 307 See_Comment [Au tomated message] The system [employer] generated this result transmit gonsalo reference range : 150 - 328 10*3/?L. The reference range was not used to interpret this result as normal/abnormal . MPV (test code = 10.4 fL 9.8-13.0 59047-7) RDW-CV (test code = 17.0 % 12.1-15.4 H 788-0) RDW-SD (test code = 51.8 fL 38.5-51.6 H 72540-4) NRBC x10^3 (test code = See_Comment [Au tomated message] 9390413265) The system [employer] generated this result transmit gonsalo reference range : 10*3/?L. The reference range was not used to interpret this result as normal/abnormal . NRBC/100 WBC (test code 0.0 See_Comment [Au tomated message] = 4679893284) The system [facility] generated this result transmit gonsalo reference range : 0.0 - 10.0 /100 WBC s. The reference r ramiro was not used to interpret this result as normal/abnormal . IPF % (test code = 7934624981) Lab Interpretation (test Abnormal code = 70638-6) [facility] (for use with Heparin Infusion)2023-08-31 12:56:52 Test Item Value Reference Range Interpretation Comments APTT Patient (test code 37 See_Comment H [Au tomated message] = 3173-2) The system [employer] generated this result transmitted ref erence range: 26 - 36 Seconds. The reference range was not used to int erpret this result as normal/abnormal . Lab Interpretation (test Abnormal code = 48145-0) [facility] (for use with Heparin Infusion)2023-08-31 12:56:52 Test Item Value Reference Range Interpretation Comments APTT Patient (test code 37 See_Comment H [Au tomated message] = 3173-2) The system [employer] generated this result transmitted ref erence range: 26 - 36 Seconds. The reference range was not used to int erpret this result as normal/abnormal . Lab Interpretation (test Abnormal code = 60640-2) [facility] (for use with Heparin Infusion)2023-08-31 12:56:52 Test Item Value Reference Range Interpretation Comments APTT Patient (test code 37 See_Comment H [Au tomated message] = 3173-2) The system [employer] generated this result transmitted ref erence range: 26 - 36 Seconds. The reference range was not used to int erpret this result as normal/abnormal . Lab Interpretation (test Abnormal code = 53472-7) [id number] 11:13:59 Test Item Value Reference Range Interpretation Comments LACTIC ACID (test code = 1.43 mmol/L 0.50-2.20 1721817597) Lab Interpretation (test code = Normal 33836-4) [facility] Acid Whole [id number] 11:13:59 Test Item Value Reference Range Interpretation Comments LACTIC ACID (test code = 1.43 mmol/L 0.50-2.20 4667347754) Lab Interpretation (test code = Normal 56484-2) [facility] [id number] 11:13:59 Test Item Value Reference Range Interpretation Comments LACTIC ACID (test code = 1.43 mmol/L 0.50-2.20 2869675138) Lab Interpretation (test code = Normal 06878-4) [facility] WITH [id number] 10:25:02 Test Item Value Reference Range Interpretation Comments WBC (test code = 28.42 See_Comment H [Automated 9290-2) message] The system which generated this result transmit gonsalo reference range : 4.20 - 10.70 10*3/?L. The reference range was not used to interpret this result as normal/abnormal . RBC (test code = 2.97 See_Comment L [Automated 479-8) message] The system which generated this result transmit gonsalo reference range : 4.26 - 5.52 10*6/?L. The reference range was not used to interpret this result as normal/abnormal . HGB (test code = 8.4 g/dL 12.2-16.4 L 718-7) HCT (test code = 25.9 % 38.4-49.3 L 4544-3) MCV (test code = 87.2 fL 81.7-95.6 787-2) MCH (test code = 28.3 pg 26.1-32.7 785-6) MCHC (test code = 32.4 g/dL 31.2-35.0 786-4) RDW-SD (test code = 50.5 fL 38.5-51.6 21410-8) RDW-CV (test code = 16.9 % 12.1-15.4 H 788-0) PLT (test code = 316 See_Comment [Automated 777-3) message] The system which generated this result transmit gonsalo reference range : 150 - 328 10*3/ ?L. The reference range was not u sed to interpret th is result as normal/abnormal . MPV (test code = 10.4 fL 9.8-13.0 71519-4) NRBC/100 WBC (test 0.0 See_Comment [Automat ed code = 8249206821) message] The system which generated this result transmit gonsalo reference range : 0.0 - 10.0 /100 WBCs. The reference range was not used to interpret this result as normal/abnormal . NRBC x10^3 (test code See_Comment [Auto mated = 8663273528) message] The system which generated this result transmit gonsalo reference range : 10*3/?L. The reference range was not used to interpret this result as normal/abnormal . GRAN MAT (NEUT) % 87.4 % (test code = 770-8) IMM GRAN % (test code 0.80 % = 7814721725) LYMPH % (test code = 2.7 % 736-9) MONO % (test code = 9.0 % 5905-5) EOS % (test code = 0.0 % 713-8) BASO % (test code = 0.1 % 706-2) GRAN MAT x10^3(ANC) 24.83 10*3/uL 1.99-6.95 H (test code = 8426580405) IMM GRAN x10^3 (test 0.24 10*3/uL 0.00-0.06 H code = 2451516537) LYMPH x10^3 (test code 0.77 10*3/uL 1.09-3.23 L = 731-0) MONO x10^3 (test code 2.55 10*3/uL 0.36-1.02 H = 742-7) EOS x10^3 (test code = 0.06-0.53 L 711-2) BASO x10^3 (test code 0.03 10*3/uL 0.01-0.09 = 704-7) POLYCHROMASIA (test 2+ See_Comment [Automa gonsalo code = 26463-5) message] The system which generated this result transmit gonsalo reference range : 2+. The referen ce range was not u sed to interpret th is result as normal/abnormal . HYPERSEG NEUTS (test Present See_Comment A [Autom ated code = 765-8) message] The system which generated this result transmit gonsaol reference range : (none). The reference range was not used to interpret this result as normal/abnormal . Lab Interpretation Abnormal (test code = 62676-6) [facility] WITH [id number] 10:25:02 Test Item Value Reference Range Interpretation Comments WBC (test code = 28.42 See_Comment H [Automated 2390-2) message] The system which generated this result transmit gonsalo reference range : 4.20 - 10.70 10*3/?L. The reference range was not used to interpret this result as normal/abnormal . RBC (test code = 2.97 See_Comment L [Automated 498-8) message] The system which generated this result transmit gonsalo reference range : 4.26 - 5.52 10*6/?L. The reference range was not used to interpret this result as normal/abnormal . HGB (test code = 8.4 g/dL 12.2-16.4 L 718-7) HCT (test code = 25.9 % 38.4-49.3 L 4544-3) MCV (test code = 87.2 fL 81.7-95.6 787-2) MCH (test code = 28.3 pg 26.1-32.7 785-6) MCHC (test code = 32.4 g/dL 31.2-35.0 786-4) RDW-SD (test code = 50.5 fL 38.5-51.6 39773-0) RDW-CV (test code = 16.9 % 12.1-15.4 H 788-0) PLT (test code = 316 See_Comment [Automated 777-3) message] The system which generated this result transmit gonsalo reference range : 150 - 328 10*3/ ?L. The reference range was not u sed to interpret th is result as normal/abnormal . MPV (test code = 10.4 fL 9.8-13.0 34878-7) NRBC/100 WBC (test 0.0 See_Comment [Automat ed code = 0132364483) message] The system which generated this result transmit gonsalo reference range : 0.0 - 10.0 /100 WBCs. The reference range was not used to interpret this result as normal/abnormal . NRBC x10^3 (test code See_Comment [Auto mated = 1602409809) message] The system which generated this result transmit gonsalo reference range : 10*3/?L. The reference range was not used to interpret this result as normal/abnormal . GRAN MAT (NEUT) % 87.4 % (test code = 770-8) IMM GRAN % (test code 0.80 % = 0931305349) LYMPH % (test code = 2.7 % 736-9) MONO % (test code = 9.0 % 5905-5) EOS % (test code = 0.0 % 713-8) BASO % (test code = 0.1 % 706-2) GRAN MAT x10^3(ANC) 24.83 10*3/uL 1.99-6.95 H (test code = 6306195896) IMM GRAN x10^3 (test 0.24 10*3/uL 0.00-0.06 H code = 4418691483) LYMPH x10^3 (test code 0.77 10*3/uL 1.09-3.23 L = 731-0) MONO x10^3 (test code 2.55 10*3/uL 0.36-1.02 H = 742-7) EOS x10^3 (test code = 0.06-0.53 L 711-2) BASO x10^3 (test code 0.03 10*3/uL 0.01-0.09 = 704-7) POLYCHROMASIA (test 2+ See_Comment [Automa gonsalo code = 97029-6) message] The system which generated this result transmit gonsalo reference range : 2+. The referen ce range was not u sed to interpret th is result as normal/abnormal . HYPERSEG NEUTS (test Present See_Comment A [Autom ated code = 765-8) message] The system which generated this result transmit gonsalo reference range : (none). The reference range was not used to interpret this result as normal/abnormal . Lab Interpretation Abnormal (test code = 52577-5) [facility] WITH [id number] 10:25:02 Test Item Value Reference Range Interpretation Comments WBC (test code = 28.42 See_Comment H [Automated 6690-2) message] The system which generated this result transmit gonsalo reference range : 4.20 - 10.70 10*3/?L. The reference range was not used to interpret this result as normal/abnormal . RBC (test code = 2.97 See_Comment L [Automated 789-8) message] The system which generated this result transmit gonsalo reference range : 4.26 - 5.52 10*6/?L. The reference range was not used to interpret this result as normal/abnormal . HGB (test code = 8.4 g/dL 12.2-16.4 L 718-7) HCT (test code = 25.9 % 38.4-49.3 L 4544-3) MCV (test code = 87.2 fL 81.7-95.6 787-2) MCH (test code = 28.3 pg 26.1-32.7 785-6) MCHC (test code = 32.4 g/dL 31.2-35.0 786-4) RDW-SD (test code = 50.5 fL 38.5-51.6 58486-2) RDW-CV (test code = 16.9 % 12.1-15.4 H 788-0) PLT (test code = 316 See_Comment [Automated 777-3) message] The system which generated this result transmit gonsalo reference range : 150 - 328 10*3/ ?L. The reference range was not u sed to interpret th is result as normal/abnormal . MPV (test code = 10.4 fL 9.8-13.0 43301-0) NRBC/100 WBC (test 0.0 See_Comment [Automat ed code = 3843644507) message] The system which generated this result transmit gonsalo reference range : 0.0 - 10.0 /100 WBCs. The reference range was not used to interpret this result as normal/abnormal . NRBC x10^3 (test code See_Comment [Auto mated = 9752709346) message] The system which generated this result transmit gonsalo reference range : 10*3/?L. The reference range was not used to interpret this result as normal/abnormal . GRAN MAT (NEUT) % 87.4 % (test code = 770-8) IMM GRAN % (test code 0.80 % = 4326372601) LYMPH % (test code = 2.7 % 736-9) MONO % (test code = 9.0 % 5905-5) EOS % (test code = 0.0 % 713-8) BASO % (test code = 0.1 % 706-2) GRAN MAT x10^3(ANC) 24.83 10*3/uL 1.99-6.95 H (test code = 7917180467) IMM GRAN x10^3 (test 0.24 10*3/uL 0.00-0.06 H code = 9835021580) LYMPH x10^3 (test code 0.77 10*3/uL 1.09-3.23 L = 731-0) MONO x10^3 (test code 2.55 10*3/uL 0.36-1.02 H = 742-7) EOS x10^3 (test code = 0.06-0.53 L 711-2) BASO x10^3 (test code 0.03 10*3/uL 0.01-0.09 = 704-7) POLYCHROMASIA (test 2+ See_Comment [Automa gonsalo code = 07665-2) message] The system which generated this result transmit gonsalo reference range : 2+. The referen ce range was not u sed to interpret th is result as normal/abnormal . HYPERSEG NEUTS (test Present See_Comment A [Autom ated code = 765-8) message] The system which generated this result transmit gonsalo reference range : (none). The reference range was not used to interpret this result as normal/abnormal . Lab Interpretation Abnormal (test code = 01743-3) [facility] Test Item Value Reference Range Interpretation Comments MAGNESIUM (test code = 2027867635) 2.1 mg/dL 1.7-2.4 Lab Interpretation (test code = Normal 95680-5) [facility] METABOLIC PANEL (NA, K, CL, CO2, GLUCOSE, BUN, CREATININE, CA)2023-08-31 10:02:14 Test Item Value Reference Range Interpretation Comments NA (test code = 139 mmol/L 135-145 9355008758) K (test code = 3.0 mmol/L 3.5-5.0 L 0399671770) CL (test code = 107 mmol/L 98-108 4008031836) CO2 TOTAL (test code = 25 mmol/L 23-31 1065086729) AGAP (test code = 7 2-16 9552559673) BUN (test code = 13 mg/dL 7-23 4930680120) GLUCOSE (test code = 155 mg/dL 70-110 H 5731125327) CREATININE (test code = 0.60 mg/dL 0.60-1.25 5236400122) CALCIUM (test code = 8.3 mg/dL 8.6-10.6 L 5557296944) eGFR (test code = 130.6 mL/min/1.73m2 3039720081) RAJESH (test code = RAJESH) Association of Glomerular Filtration Rate (GFR) and Staging of Kidney Disease* + --+ --+ ------+| GFR (mL/min/1.73 m2) ?| With Kidney Damage ?| ?Without Kidney Damage+ --------+ --------+ +| ?>90 ?| ?Stage one ?| ? Normal ?+ ---+ ---+ -------+| ?60-89 ?| ?Stage two ?| ? Decreased GFR ? + --+ --+ ------+| ?30-59 ?| ?Stage three ?| ? Stage three ? + --+ --+ ------+| ?15-29 ?| ?Stage four ? | ? Stage four ?+ ---+ ---+ -------+| ?<15 (or dialysis) ? ?| ?Stage five ? | ? Stage five ?+ ---+ ---+ -------+ *Each stage assumes the associated GFR level has been in effect for at least three months. ?Stages 1 to 5, with or without kidney disease, indicate chronic kidney disease. Notes: Determination of stages one and two (with eGFR >59mL/min/1.73 m2) requires estimation of kidney damage for at least three months as defined by structural or functional abnormalities of the kidney, manifested by either:Pathological abnormalities or Markers of kidney damage (including abnormalities in the composition of the blood or urine or abnormalities in imaging tests). Lab Interpretation Abnormal (test code = 18427-8) [facility]14 Test Item Value Reference Range Interpretation Comments MAGNESIUM (test code = 3402069331) 2.1 mg/dL 1.7-2.4 Lab Interpretation (test code = Normal 21941-5) [facility] (NA, K, CL, CO2, GLUCOSE, BUN, CREATININE, CA)2023-08-31 10:02:14 Test Item Value Reference Range Interpretation Comments NA (test code = 139 mmol/L 135-145 4136106893) K (test code = 3.0 mmol/L 3.5-5.0 L 8618598515) CL (test code = 107 mmol/L 98-108 5089424469) CO2 TOTAL (test code = 25 mmol/L 23-31 2923248872) AGAP (test code = 7 2-16 0586954440) BUN (test code = 13 mg/dL 7-23 7036216987) GLUCOSE (test code = 155 mg/dL 70-110 H 8464743920) CREATININE (test code = 0.60 mg/dL 0.60-1.25 0127288906) CALCIUM (test code = 8.3 mg/dL 8.6-10.6 L 5251446801) eGFR (test code = 130.6 mL/min/1.73m2 5542506122) RAJESH (test code = RAJESH) Association of Glomerular Filtration Rate (GFR) and Staging of Kidney Disease* + --+ --+ ------+| GFR (mL/min/1.73 m2) ?| With Kidney Damage ?| ?Without Kidney Damage+ --------+ --------+ +| ?>90 ?| ?Stage one ?| ? Normal ?+ ---+ ---+ -------+| ?60-89 ?| ?Stage two ?| ? Decreased GFR ? + --+ --+ ------+| ?30-59 ?| ?Stage three ?| ? Stage three ? + --+ --+ ------+| ?15-29 ?| ?Stage four ? | ? Stage four ?+ ---+ ---+ -------+| ?<15 (or dialysis) ? ?| ?Stage five ? | ? Stage five ?+ ---+ ---+ -------+ *Each stage assumes the associated GFR level has been in effect for at least three months. ?Stages 1 to 5, with or without kidney disease, indicate chronic kidney disease. Notes: Determination of stages one and two (with eGFR >59mL/min/1.73 m2) requires estimation of kidney damage for at least three months as defined by structural or functional abnormalities of the kidney, manifested by either:Pathological abnormalities or Markers of kidney damage (including abnormalities in the composition of the blood or urine or abnormalities in imaging tests). Lab Interpretation Abnormal (test code = 03863-3) [facility]14 Test Item Value Reference Range Interpretation Comments MAGNESIUM (test code = 8277173114) 2.1 mg/dL 1.7-2.4 Lab Interpretation (test code = Normal 76946-6) [facility] (NA, K, CL, CO2, GLUCOSE, BUN, CREATININE, CA)2023-08-31 10:02:14 Test Item Value Reference Range Interpretation Comments NA (test code = 139 mmol/L 135-145 5042464224) K (test code = 3.0 mmol/L 3.5-5.0 L 2558306505) CL (test code = 107 mmol/L 98-108 9642352247) CO2 TOTAL (test code = 25 mmol/L 23-31 8136253976) AGAP (test code = 7 2-16 4742091441) BUN (test code = 13 mg/dL - 3859053285) GLUCOSE (test code = 155 mg/dL 70-110 H 4917706927) CREATININE (test code = 0.60 mg/dL 0.60-1.25 8720483040) CALCIUM (test code = 8.3 mg/dL 8.6-10.6 L 6186960861) eGFR (test code = 130.6 mL/min/1.73m2 2983853108) RAJESH (test code = RAJESH) Association of Glomerular Filtration Rate (GFR) and Staging of Kidney Disease* + --+ --+ ------+| GFR (mL/min/1.73 m2) ?| With Kidney Damage ?| ?Without Kidney Damage+ --------+ --------+ +| ?>90 ?| ?Stage one ?| ? Normal ?+ ---+ ---+ -------+| ?60-89 ?| ?Stage two ?| ? Decreased GFR ? + --+ --+ ------+| ?30-59 ?| ?Stage three ?| ? Stage three ? + --+ --+ ------+| ?15-29 ?| ?Stage four ? | ? Stage four ?+ ---+ ---+ -------+| ?<15 (or dialysis) ? ?| ?Stage five ? | ? Stage five ?+ ---+ ---+ -------+ *Each stage assumes the associated GFR level has been in effect for at least three months. ?Stages 1 to 5, with or without kidney disease, indicate chronic kidney disease. Notes: Determination of stages one and two (with eGFR >59mL/min/1.73 m2) requires estimation of kidney damage for at least three months as defined by structural or functional abnormalities of the kidney, manifested by either:Pathological abnormalities or Markers of kidney damage (including abnormalities in the composition of the blood or urine or abnormalities in imaging tests). Lab Interpretation Abnormal (test code = 26481-7) [facility] Test Item Value Reference Range Interpretation Comments APTT Patient (test code 127 See_Comment HH [Au tomated message] = 4613-2) The system [employer] generated this result transmitted ref erence range: 26 - 36 Seconds. The reference range was not used to int erpret this result as normal/abnormal . Lab Interpretation (test Abnormal code = 71007-4) [facility]:32[facility]48 Test Item Value Reference Range Interpretation Comments APTT Patient (test code 127 See_Comment HH [Au tomated message] = 3173-2) The system [employer] generated this result transmitted ref erence range: 26 - 36 Seconds. The reference range was not used to int erpret this result as normal/abnormal . Lab Interpretation (test Abnormal code = 85490-8) [facility] / [id number] 04:38:03 PROTIME WVITPTO4008/30/2023 11:38 PM [facility] ZITJJLZFNAO95/06/2023 11:38 PM [facility] SERVICES[facility] Prothrombin Time (PT) / [id number] 04:38:03PROTIME UTBCVFZ6008/30/2023 11:38 PM [facility] UTFOJUPVKET14/06/2023 11:38 PM [facility] SERVICES [facility]PT[facility] / [id number] 04:38:03 PROTIME VCWVZHP8508/30/2023 11:38 PM [facility] UYXAFCJPRMY62/06/2023 11:38 PM [facility] SERVICESMay[facility] HospitalTROPONIN I 2023-08-30 19:04:10 Test Item Value Reference Range Interpretation Comments TROPONIN I (test code = 0.325 ng/mL <=0.034 H 5020370429) RAJESH (test code = RAJESH) Reference (Normal) Range (defined by the 99th percentile reference limit): <= 0.034 ng/mL Note: Cardiac troponin begins to rise 3-4 hours after the onset of ischemia. Repeat in 4-6 hours if the sample was drawn within 3-4 hours of the onset of the symptom and found normal. Diagnosis of myocardial injury is made with acute changes in cTn concentrations with at least one serial sample above the 99th percentile upper reference limit (URL), taken together with the patient's clinical presentation. Biotin has been reported to cause a negative bias, interpret results relative to patient's use of biotin. Lab Interpretation Abnormal (test code = 18547-1) [facility] [id number] 19:04:10 Test Item Value Reference Range Interpretation Comments TROPONIN I (test code = 0.325 ng/mL <=0.034 H 6648979488) RAJESH (test code = RAJESH) Reference (Normal) Range (defined by the 99th percentile reference limit): <= 0.034 ng/mL Note: Cardiac troponin begins to rise 3-4 hours after the onset of ischemia. Repeat in 4-6 hours if the sample was drawn within 3-4 hours of the onset of the symptom and found normal. Diagnosis of myocardial injury is made with acute changes in cTn concentrations with at least one serial sample above the 99th percentile upper reference limit (URL), taken together with the patient's clinical presentation. Biotin has been reported to cause a negative bias, interpret results relative to patient's use of biotin. Lab Interpretation Abnormal (test code = 24172-8) [facility] [id number] 19:04:10 Test Item Value Reference Range Interpretation Comments TROPONIN I (test code = 0.325 ng/mL <=0.034 H 8395095119) RAJESH (test code = RAJESH) Reference (Normal) Range (defined by the 99th percentile reference limit): <= 0.034 ng/mL Note: Cardiac troponin begins to rise 3-4 hours after the onset of ischemia. Repeat in 4-6 hours if the sample was drawn within 3-4 hours of the onset of the symptom and found normal. Diagnosis of myocardial injury is made with acute changes in cTn concentrations with at least one serial sample above the 99th percentile upper reference limit (URL), taken together with the patient's clinical presentation. Biotin has been reported to cause a negative bias, interpret results relative to patient's use of biotin. Lab Interpretation Abnormal (test code = 63871-8) [facility]23-[facility]-30 18:27:03 Test Item Value Reference Range Interpretation Comments Height (test code = 69 in 3750094944) Weight (test code = 116 lbs 2090367811) Systolic BP (test code 145 mmHg = 8756429898) Diastolic BP (test code 90 mmHg = 7101518942) Heart Rate (test code = 82 bpm 2192802609) BSA (test code = 1.64 m2 6635401812) LVOT diameter (test 2.11 cm code = 0285777636) LVOT area (test code = 3.50 cm2 0855274106) LA size (test code = 3.4 cm 1140078627) Ao root diam (test code 3.50 cm = 7253644022) Aortic root (test code 3.5 cm = 3734074064) Ao root annulus (test 3.5 cm code = 3893349769) MV Peak A Ashish (test 135.3 cm/s code = 3948247708) MR max PG (test code = 142.70 mm[Hg] 5141515035) MR max ashish (test code = 597.20 cm/s 4127314948) Mr max ashish (test code = 597.2 m/s 7855963542) LAV(MOD-sp4) (test code 65.50 mL = 2821219897) Ao peak ashish (test code 306.2 cm/s = 5918622188) Ao max PG (test code = 37.50 mm[Hg] 3395637324) AV peak gradient (test 37.5 mmHg code = 7362960511) Aortic valve mean 229.8 cm/s velocity (test code = 0741880749) Ao VTI (test code = 56.6 cm 8835382017) AV mean gradient (test 23.6 mmHg code = 9401148124) LVOT stroke volume 142.10 cm3 (test code = 7547139669) LVOT peak ashish (test 233.5 cm/s code = 3239175147) LVOT mn grad (test code 12.3 mmHg = 9506976990) AV LVOT peak gradient 21.8 mmHg (test code = 0887486241) LVOT peak VTI (test 40.7 cm code = 4420380622) AV area by cont VTI 2.5 cm2 (test code = 1291656988) AV area peak ashish (test 2.7 cm2 code = 1594616841) LV V1 mean (test code = 165.00 cm/s 8693520155) AV valve area (test 2.50 cm2 code = 1919924695) Tapse (test code = 2.04 cm 3294559886) LA Volume Index (BP) 40.8 mL/m2 (test code = 9354489901) LA volume (BP) (test 66.9 mL code = 3499295842) LAV(MOD-sp2) (test code 55.40 mL = 6740584411) LVIDS (test code = 2.08 cm 2587172691) Left Ventricular End 14.0 mL Systolic Volume by Teichholz Method (test code = 0692027) LVIDD (test code = 3.50 cm 5168120665) Left Ventricular End 50.3 mL Diastolic Volume by Teichholz Method (test code = 3361013) IVS (test code = 1.58 cm 2115262434) Interventricular Septum 1.58 cm Diastolic Thickness by 2D (test code = 5139245) LVPWD (test code = 1.46 cm 3012400790) PW (test code = 1.46 cm 0.6-1.9 5308292631) EF(Teich) (test code = 72.10 % 9821419951) FS (test code = 40 % 2269760339) EF - 2D (test code = 72.10 % 69294376) MV mean gradient (test 91.1 mmHg code = 5304276172) MV peak gradient (test 127.8 mmHg code = 8399176657) MV pk ashish (test code = 565.2 cm/s 5639286342) MV valve area by 1.59 cm2 continuity eq (test code = 4818054602) MV VTI (test code = 89.2 cm 1688053478) MV V2 mean (test code = 444.50 cm/s 3134664496) A4C EF (test code = 63.80 % 6855504707) EF(sp4-el) (test code = 65.20 % 1189575714) SV(MOD-sp4) (test code 113.90 mL = 7509874291) SV(sp4-el) (test code = 118.40 mL 0031205438) MV Peak E Ashish (test 142.1 cm/s code = 7074813366) E/A ratio (test code = 1.79 ratio 9628599560) Radiology Study observation (narrative) (test code = 74309-9) RAJESH (test code = RAJESH) ?Left?Ventricle: Left ventricle size is normal. Moderately increased wall thickness. Moderate basal septal thickening. There is moderate concentric hypertrophy. See diagram for wall motion findings (marked hypokinesis if the mid to apical, including apical cap, wall segments, suggesting stress-induced CMP vs. LAD/LCx territories). Clinical correlation is higly suggested. Mildly reduced systolic function with a visually estimated EF of 40 - 45%. There is grade 2 diastolic dysfunction. Elevated left ventricular filling pressure. E/A ratio is 1.79. ?Left?Atrium: Left atrium is moderately dilated. Left atrium volume index is 40.8 mL/m2. ?Aortic?Valve: Moderately thickened non-coronary cusp. Mild transvalvular regurgitation. Mild subvalvular stenosis due to severe basal septal thickening. AV mean gradient is 23.6 mmHg. AV peak velocity is 306.2 cm/s. AV area by continuity VTI is 2.5 cm2. ?Tricuspid?Valve: Trace transvalvular regurgitation. Insufficient tricuspid regurgitation jet to estimate RVSP . ?IVC/SVC: IVC diameter is less than or equal to 21 mm and decreases greater than 50% during inspiration; therefore the estimated right atrial pressure is normal (~0-5 mmHg). Jany Larsen MD Left VentricleLeft ventricle size is normal. Moderately increased wall thickness. Moderate basal septal thickening. There is moderate concentric hypertrophy. See diagram for wall motion findings (marked hypokinesis if the mid to apical, including apical cap, wall segments, suggesting stress-induced CMP vs. LAD/LCx territories). Clinical correlation is higly suggested. Mildly reduced systolic function with a visually estimated EF of 40 - 45%. There is grade 2 diastolic dysfunction. Elevated left ventricular filling pressure. E/A ratio is 1.79.Right VentricleRight ventricle size is normal. Normal wall thickness. Normal systolic function.Left AtriumLeft atrium is moderately dilated. Left atrium volume index is 40.8 mL/m2.Right AtriumRight atrium size is normal.IVC/SVCIVC diameter is less than or equal to 21 mm and decreases greater than 50% during inspiration; therefore the estimated right atrial pressure is normal (~0-5 mmHg).Mitral ValveMildly thickened leaflets. No FABIANO from plax view. Poor M mode data to assess FABIANO. Mild transvalvular regurgitation. No stenosis.Tricuspid ValveTricuspid valve structure is normal. Trace transvalvular regurgitation. Insufficient tricuspid regurgitation jet to estimate RVSP . No stenosis.Aortic ValveModerately thickened non-coronary cusp. Mild transvalvular regurgitation. Mild subvalvular stenosis due to severe basal septal thickening. AV mean gradient is 23.6 mmHg. AV peak velocity is 306.2 cm/s. AV area by continuity VTI is 2.5 cm2.Pulmonic ValveNot well visualized. No transvalvular regurgitation. No stenosis.Ascending AortaNormal sized aortic root.PericardiumThe pericardium is normal. No pericardial effusion.Study DetailsA complete echocardiogram was performed using 2D, color flow Doppler and spectral Doppler. 5 mL of Lumason ultrasound enhancing agent used.Wall Scoring BaselineScore Index: 1.41The following segments are akinetic: apex.The following segments are hypokinetic: mid anteroseptal, apical anterior, apical septal, apical inferior and apical lateral.All other segments are normal. Height (test code = 69 in 7376538945) Weight (test code = 116 lbs 3819371897) Systolic BP (test code 145 mmHg = 7052575929) Diastolic BP (test code 90 mmHg = 1604250768) Heart Rate (test code = 82 bpm 5538318589) BSA (test code = 1.64 m2 3289130635) LVOT diameter (test 2.11 cm code = 8179728282) LVOT area (test code = 3.50 cm2 6261574529) LA size (test code = 3.4 cm 3294803499) Ao root diam (test code 3.50 cm = 1411288376) Aortic root (test code 3.5 cm = 3577181870) Ao root annulus (test 3.5 cm code = 2091010539) MV Peak A Ashish (test 135.3 cm/s code = 4746178750) MR max PG (test code = 142.70 mm[Hg] 7725340438) MR max ashish (test code = 597.20 cm/s 9093257122) Mr max ashish (test code = 597.2 m/s 7145213546) LAV(MOD-sp4) (test code 65.50 mL = 8617337885) Ao peak ashish (test code 306.2 cm/s = 6722097827) Ao max PG (test code = 37.50 mm[Hg] 4331598489) AV peak gradient (test 37.5 mmHg code = 2061123520) Aortic valve mean 229.8 cm/s velocity (test code = 9720446254) Ao VTI (test code = 56.6 cm 2785250022) AV mean gradient (test 23.6 mmHg code = 9756115717) LVOT stroke volume 142.10 cm3 (test code = 4279423627) LVOT peak ashish (test 233.5 cm/s code = 5661480515) LVOT mn grad (test code 12.3 mmHg = 7286717321) AV LVOT peak gradient 21.8 mmHg (test code = 1523324363) LVOT peak VTI (test 40.7 cm code = 1635541129) AV area by cont VTI 2.5 cm2 (test code = 7600526897) AV area peak ashish (test 2.7 cm2 code = 8445274242) LV V1 mean (test code = 165.00 cm/s 5739081214) AV valve area (test 2.50 cm2 code = 9536044683) Tapse (test code = 2.04 cm 0886099214) LA Volume Index (BP) 40.8 mL/m2 (test code = 2435665619) LA volume (BP) (test 66.9 mL code = 5898349389) LAV(MOD-sp2) (test code 55.40 mL = 0288361427) LVIDS (test code = 2.08 cm 8870161898) Left Ventricular End 14.0 mL Systolic Volume by Teichholz Method (test code = 7207684) LVIDD (test code = 3.50 cm 2947683552) Left Ventricular End 50.3 mL Diastolic Volume by Teichholz Method (test code = 3840401) IVS (test code = 1.58 cm 2862055812) Interventricular Septum 1.58 cm Diastolic Thickness by 2D (test code = 4014334) LVPWD (test code = 1.46 cm 5016483966) PW (test code = 1.46 cm 0.6-1.7 2474938832) EF(Teich) (test code = 72.10 % 3205834390) FS (test code = 40 % 8527648361) EF - 2D (test code = 72.10 % 11066680) MV mean gradient (test 91.1 mmHg code = 7097032367) MV peak gradient (test 127.8 mmHg code = 6070729424) MV pk ashish (test code = 565.2 cm/s 7802252159) MV valve area by 1.59 cm2 continuity eq (test code = 9970103123) MV VTI (test code = 89.2 cm 0261898934) MV V2 mean (test code = 444.50 cm/s 2731978432) A4C EF (test code = 63.80 % 5312788268) EF(sp4-el) (test code = 65.20 % 9080629189) SV(MOD-sp4) (test code 113.90 mL = 5616762730) SV(sp4-el) (test code = 118.40 mL 9955841176) MV Peak E Ashish (test 142.1 cm/s code = 3012315982) E/A ratio (test code = 1.79 ratio 1320033067) RAJESH (test code = RAJESH) ?Left?Ventricle: Left ventricle size is normal. Moderately increased wall thickness. Moderate basal septal thickening. There is moderate concentric hypertrophy. See diagram for wall motion findings (marked hypokinesis if the mid to apical, including apical cap, wall segments, suggesting stress-induced CMP vs. LAD/LCx territories). Clinical correlation is higly suggested. Mildly reduced systolic function with a visually estimated EF of 40 - 45%. There is grade 2 diastolic dysfunction. Elevated left ventricular filling pressure. E/A ratio is 1.79. ?Left?Atrium: Left atrium is moderately dilated. Left atrium volume index is 40.8 mL/m2. ?Aortic?Valve: Moderately thickened non-coronary cusp. Mild transvalvular regurgitation. Mild subvalvular stenosis due to severe basal septal thickening. AV mean gradient is 23.6 mmHg. AV peak velocity is 306.2 cm/s. AV area by continuity VTI is 2.5 cm2. ?Tricuspid?Valve: Trace transvalvular regurgitation. Insufficient tricuspid regurgitation jet to estimate RVSP . ?IVC/SVC: IVC diameter is less than or equal to 21 mm and decreases greater than 50% during inspiration; therefore the estimated right atrial pressure is normal (~0-5 mmHg). Jany Larsen MD Left VentricleLeft ventricle size is normal. Moderately increased wall thickness. Moderate basal septal thickening. There is moderate concentric hypertrophy. See diagram for wall motion findings (marked hypokinesis if the mid to apical, including apical cap, wall segments, suggesting stress-induced CMP vs. LAD/LCx territories). Clinical correlation is higly suggested. Mildly reduced systolic function with a visually estimated EF of 40 - 45%. There is grade 2 diastolic dysfunction. Elevated left ventricular filling pressure. E/A ratio is 1.79.Right VentricleRight ventricle size is normal. Normal wall thickness. Normal systolic function.Left AtriumLeft atrium is moderately dilated. Left atrium volume index is 40.8 mL/m2.Right AtriumRight atrium size is normal.IVC/SVCIVC diameter is less than or equal to 21 mm and decreases greater than 50% during inspiration; therefore the estimated right atrial pressure is normal (~0-5 mmHg).Mitral ValveMildly thickened leaflets. No FABIANO from plax view. Poor M mode data to assess FABIANO. Mild transvalvular regurgitation. No stenosis.Tricuspid ValveTricuspid valve structure is normal. Trace transvalvular regurgitation. Insufficient tricuspid regurgitation jet to estimate RVSP . No stenosis.Aortic ValveModerately thickened non-coronary cusp. Mild transvalvular regurgitation. Mild subvalvular stenosis due to severe basal septal thickening. AV mean gradient is 23.6 mmHg. AV peak velocity is 306.2 cm/s. AV area by continuity VTI is 2.5 cm2.Pulmonic ValveNot well visualized. No transvalvular regurgitation. No stenosis.Ascending AortaNormal sized aortic root.PericardiumThe pericardium is normal. No pericardial effusion.Study DetailsA complete echocardiogram was performed using 2D, color flow Doppler and spectral Doppler. 5 mL of Lumason ultrasound enhancing agent used.Wall Scoring BaselineScore Index: 1.41The following segments are akinetic: apex.The following segments are hypokinetic: mid anteroseptal, apical anterior, apical septal, apical inferior and apical lateral.All other segments are normal. [facility]:27:03 Test Item Value Reference Range Interpretation Comments Height (test code = 69 in 4663730570) Weight (test code = 116 lbs 2779110548) Systolic BP (test code 145 mmHg = 2116223683) Diastolic BP (test code 90 mmHg = 4279277165) Heart Rate (test code = 82 bpm 9950273906) BSA (test code = 1.64 m2 2260587664) LVOT diameter (test 2.11 cm code = 8888103448) LVOT area (test code = 3.50 cm2 3344883201) LA size (test code = 3.4 cm 4923947054) Ao root diam (test code 3.50 cm = 9062311478) Aortic root (test code 3.5 cm = 1041997515) Ao root annulus (test 3.5 cm code = 4674473790) MV Peak A Ashish (test 135.3 cm/s code = 5775736138) MR max PG (test code = 142.70 mm[Hg] 2206855734) MR max ashish (test code = 597.20 cm/s 4668598618) Mr max ashish (test code = 597.2 m/s 6218176084) LAV(MOD-sp4) (test code 65.50 mL = 3911460411) Ao peak ashish (test code 306.2 cm/s = 0804443624) Ao max PG (test code = 37.50 mm[Hg] 0700507531) AV peak gradient (test 37.5 mmHg code = 5551481683) Aortic valve mean 229.8 cm/s velocity (test code = 4203038662) Ao VTI (test code = 56.6 cm 7103440041) AV mean gradient (test 23.6 mmHg code = 8567876641) LVOT stroke volume 142.10 cm3 (test code = 0306089628) LVOT peak ashish (test 233.5 cm/s code = 6615138431) LVOT mn grad (test code 12.3 mmHg = 4671035442) AV LVOT peak gradient 21.8 mmHg (test code = 0558851059) LVOT peak VTI (test 40.7 cm code = 2025672036) AV area by cont VTI 2.5 cm2 (test code = 1137664754) AV area peak ashish (test 2.7 cm2 code = 7773439991) LV V1 mean (test code = 165.00 cm/s 8755798513) AV valve area (test 2.50 cm2 code = 1890561617) Tapse (test code = 2.04 cm 5288580661) LA Volume Index (BP) 40.8 mL/m2 (test code = 4223012679) LA volume (BP) (test 66.9 mL code = 8712239864) LAV(MOD-sp2) (test code 55.40 mL = 2453393615) LVIDS (test code = 2.08 cm 9570795382) Left Ventricular End 14.0 mL Systolic Volume by Teichholz Method (test code = 6528023) LVIDD (test code = 3.50 cm 7898423380) Left Ventricular End 50.3 mL Diastolic Volume by Teichholz Method (test code = 3484404) IVS (test code = 1.58 cm 3199841564) Interventricular Septum 1.58 cm Diastolic Thickness by 2D (test code = 6037702) LVPWD (test code = 1.46 cm 8870071804) PW (test code = 1.46 cm 0.6-1.2 7898711267) EF(Teich) (test code = 72.10 % 4762858490) FS (test code = 40 % 2548039605) EF - 2D (test code = 72.10 % 22063553) MV mean gradient (test 91.1 mmHg code = 8715173267) MV peak gradient (test 127.8 mmHg code = 1978244957) MV pk ashish (test code = 565.2 cm/s 9239735320) MV valve area by 1.59 cm2 continuity eq (test code = 3279532838) MV VTI (test code = 89.2 cm 6163824941) MV V2 mean (test code = 444.50 cm/s 7076239812) A4C EF (test code = 63.80 % 2223069576) EF(sp4-el) (test code = 65.20 % 0883248583) SV(MOD-sp4) (test code 113.90 mL = 6894878304) SV(sp4-el) (test code = 118.40 mL 1824032417) MV Peak E Ashish (test 142.1 cm/s code = 1959286407) E/A ratio (test code = 1.79 ratio 9609340507) Radiology Study observation (narrative) (test code = 53177-7) RAJESH (test code = RAJESH) ?Left?Ventricle: Left ventricle size is normal. Moderately increased wall thickness. Moderate basal septal thickening. There is moderate concentric hypertrophy. See diagram for wall motion findings (marked hypokinesis if the mid to apical, including apical cap, wall segments, suggesting stress-induced CMP vs. LAD/LCx territories). Clinical correlation is higly suggested. Mildly reduced systolic function with a visually estimated EF of 40 - 45%. There is grade 2 diastolic dysfunction. Elevated left ventricular filling pressure. E/A ratio is 1.79. ?Left?Atrium: Left atrium is moderately dilated. Left atrium volume index is 40.8 mL/m2. ?Aortic?Valve: Moderately thickened non-coronary cusp. Mild transvalvular regurgitation. Mild subvalvular stenosis due to severe basal septal thickening. AV mean gradient is 23.6 mmHg. AV peak velocity is 306.2 cm/s. AV area by continuity VTI is 2.5 cm2. ?Tricuspid?Valve: Trace transvalvular regurgitation. Insufficient tricuspid regurgitation jet to estimate RVSP . ?IVC/SVC: IVC diameter is less than or equal to 21 mm and decreases greater than 50% during inspiration; therefore the estimated right atrial pressure is normal (~0-5 mmHg). Jany Larsen MD Left VentricleLeft ventricle size is normal. Moderately increased wall thickness. Moderate basal septal thickening. There is moderate concentric hypertrophy. See diagram for wall motion findings (marked hypokinesis if the mid to apical, including apical cap, wall segments, suggesting stress-induced CMP vs. LAD/LCx territories). Clinical correlation is higly suggested. Mildly reduced systolic function with a visually estimated EF of 40 - 45%. There is grade 2 diastolic dysfunction. Elevated left ventricular filling pressure. E/A ratio is 1.79.Right VentricleRight ventricle size is normal. Normal wall thickness. Normal systolic function.Left AtriumLeft atrium is moderately dilated. Left atrium volume index is 40.8 mL/m2.Right AtriumRight atrium size is normal.IVC/SVCIVC diameter is less than or equal to 21 mm and decreases greater than 50% during inspiration; therefore the estimated right atrial pressure is normal (~0-5 mmHg).Mitral ValveMildly thickened leaflets. No FABIANO from plax view. Poor M mode data to assess FABIANO. Mild transvalvular regurgitation. No stenosis.Tricuspid ValveTricuspid valve structure is normal. Trace transvalvular regurgitation. Insufficient tricuspid regurgitation jet to estimate RVSP . No stenosis.Aortic ValveModerately thickened non-coronary cusp. Mild transvalvular regurgitation. Mild subvalvular stenosis due to severe basal septal thickening. AV mean gradient is 23.6 mmHg. AV peak velocity is 306.2 cm/s. AV area by continuity VTI is 2.5 cm2.Pulmonic ValveNot well visualized. No transvalvular regurgitation. No stenosis.Ascending AortaNormal sized aortic root.PericardiumThe pericardium is normal. No pericardial effusion.Study DetailsA complete echocardiogram was performed using 2D, color flow Doppler and spectral Doppler. 5 mL of Lumason ultrasound enhancing agent used.Wall Scoring BaselineScore Index: 1.41The following segments are akinetic: apex.The following segments are hypokinetic: mid anteroseptal, apical anterior, apical septal, apical inferior and apical lateral.All other segments are normal. [facility] [id number] 17:09:15 Test Item Value Reference Range Interpretation Comments LACTIC ACID (test code = 2.99 mmol/L 0.50-2.20 H QUE S 4113133870) Lab Interpretation (test code = Abnormal 74772-9) [facility] Acid Whole [id number] 17:09:15 Test Item Value Reference Range Interpretation Comments LACTIC ACID (test code = 2.99 mmol/L 0.50-2.20 H QUE S 7492141796) Lab Interpretation (test code = Abnormal 31277-3) [id number] 11:39[facility]15 Test Item Value Reference Range Interpretation Comments TROPONIN I (test code = 0.369 ng/mL <=0.034 H 5408372419) RAJESH (test code = RAJESH) Reference (Normal) Range (defined by the 99th percentile reference limit): <= 0.034 ng/mL Note: Cardiac troponin begins to rise 3-4 hours after the onset of ischemia. Repeat in 4-6 hours if the sample was drawn within 3-4 hours of the onset of the symptom and found normal. Diagnosis of myocardial injury is made with acute changes in cTn concentrations with at least one serial sample above the 99th percentile upper reference limit (URL), taken together with the patient's clinical presentation. Biotin has been reported to cause a negative bias, interpret results relative to patient's use of biotin. Lab Interpretation Abnormal (test code = 15085-1) [facility] [id number] 11:39:15 Test Item Value Reference Range Interpretation Comments TROPONIN I (test code = 0.369 ng/mL <=0.034 H 4365034735) RAJESH (test code = RAJESH) Reference (Normal) Range (defined by the 99th percentile reference limit): <= 0.034 ng/mL Note: Cardiac troponin begins to rise 3-4 hours after the onset of ischemia. Repeat in 4-6 hours if the sample was drawn within 3-4 hours of the onset of the symptom and found normal. Diagnosis of myocardial injury is made with acute changes in cTn concentrations with at least one serial sample above the 99th percentile upper reference limit (URL), taken together with the patient's clinical presentation. Biotin has been reported to cause a negative bias, interpret results relative to patient's use of biotin. Lab Interpretation Abnormal (test code = 00905-9) [facility] 11:23:13 Test Item Value Reference Range Interpretation Comments MAGNESIUM (test code = 8415463663) 1.9 mg/dL 1.7-2.4 Lab Interpretation (test code = Normal 66677-6) [facility] (NA, K, CL, CO2, GLUCOSE, BUN, CREATININE, CA)2023-08-30 11:23:13 Test Item Value Reference Range Interpretation Comments NA (test code = 136 mmol/L 135-145 8680690053) K (test code = 3.8 mmol/L 3.5-5.0 9212473359) CL (test code = 107 mmol/L 98-108 5440275207) CO2 TOTAL (test code = 21 mmol/L 23-31 L 3289746979) AGAP (test code = 8 2-16 2010496177) BUN (test code = 13 mg/dL 7-23 1969444131) GLUCOSE (test code = 252 mg/dL 70-110 H 9324105056) CREATININE (test code = 0.53 mg/dL 0.60-1.25 L 3008385128) CALCIUM (test code = 8.0 mg/dL 8.6-10.6 L 1717344015) eGFR (test code = 150.8 mL/min/1.73m2 9142478644) RAJESH (test code = RAJESH) Association of Glomerular Filtration Rate (GFR) and Staging of Kidney Disease* + --+ --+ ------+| GFR (mL/min/1.73 m2) ?| With Kidney Damage ?| ?Without Kidney Damage+ --------+ --------+ +| ?>90 ?| ?Stage one ?| ? Normal ?+ ---+ ---+ -------+| ?60-89 ?| ?Stage two ?| ? Decreased GFR ? + --+ --+ ------+| ?30-59 ?| ?Stage three ?| ? Stage three ? + --+ --+ ------+| ?15-29 ?| ?Stage four ? | ? Stage four ?+ ---+ ---+ -------+| ?<15 (or dialysis) ? ?| ?Stage five ? | ? Stage five ?+ ---+ ---+ -------+ *Each stage assumes the associated GFR level has been in effect for at least three months. ?Stages 1 to 5, with or without kidney disease, indicate chronic kidney disease. Notes: Determination of stages one and two (with eGFR >59mL/min/1.73 m2) requires estimation of kidney damage for at least three months as defined by structural or functional abnormalities of the kidney, manifested by either:Pathological abnormalities or Markers of kidney damage (including abnormalities in the composition of the blood or urine or abnormalities in imaging tests). Lab Interpretation Abnormal (test code = 49376-1) [facility] 11:23:13 Test Item Value Reference Range Interpretation Comments MAGNESIUM (test code = 8748026152) 1.9 mg/dL 1.7-2.4 Lab Interpretation (test code = Normal 96243-5) [facility] (NA, K, CL, CO2, GLUCOSE, BUN, CREATININE, CA)2023-08-30 11:23:13 Test Item Value Reference Range Interpretation Comments NA (test code = 136 mmol/L 135-145 4247686315) K (test code = 3.8 mmol/L 3.5-5.0 1895115911) CL (test code = 107 mmol/L 98-108 2436887614) CO2 TOTAL (test code = 21 mmol/L 23-31 L 5056405616) AGAP (test code = 8 2-16 9940513422) BUN (test code = 13 mg/dL 7-23 5512352041) GLUCOSE (test code = 252 mg/dL 70-110 H 4316567590) CREATININE (test code = 0.53 mg/dL 0.60-1.25 L 8119037132) CALCIUM (test code = 8.0 mg/dL 8.6-10.6 L 2360146783) eGFR (test code = 150.8 mL/min/1.73m2 1298798665) RAJESH (test code = RAJESH) Association of Glomerular Filtration Rate (GFR) and Staging of Kidney Disease* + --+ --+ ------+| GFR (mL/min/1.73 m2) ?| With Kidney Damage ?| ?Without Kidney Damage+ --------+ --------+ +| ?>90 ?| ?Stage one ?| ? Normal ?+ ---+ ---+ -------+| ?60-89 ?| ?Stage two ?| ? Decreased GFR ? + --+ --+ ------+| ?30-59 ?| ?Stage three ?| ? Stage three ? + --+ --+ ------+| ?15-29 ?| ?Stage four ? | ? Stage four ?+ ---+ ---+ -------+| ?<15 (or dialysis) ? ?| ?Stage five ? | ? Stage five ?+ ---+ ---+ -------+ *Each stage assumes the associated GFR level has been in effect for at least three months. ?Stages 1 to 5, with or without kidney disease, indicate chronic kidney disease. Notes: Determination of stages one and two (with eGFR >59mL/min/1.73 m2) requires estimation of kidney damage for at least three months as defined by structural or functional abnormalities of the kidney, manifested by either:Pathological abnormalities or Markers of kidney damage (including abnormalities in the composition of the blood or urine or abnormalities in imaging tests). Lab Interpretation Abnormal (test code = 25730-0) [facility] WITH [id number] 11:20:31 Test Item Value Reference Range Interpretation Comments WBC (test code = 24.49 See_Comment H [Automated 6690-2) message] The system which generated this result transmit gonsalo reference range : 4.20 - 10.70 10*3/?L. The reference range was not used to interpret this result as normal/abnormal . RBC (test code = 3.14 See_Comment L [Automated 789-8) message] The system which generated this result transmit gonsalo reference range : 4.26 - 5.52 10*6/?L. The reference range was not used to interpret this result as normal/abnormal . HGB (test code = 9.1 g/dL 12.2-16.4 L 718-7) HCT (test code = 26.9 % 38.4-49.3 L 4544-3) MCV (test code = 85.7 fL 81.7-95.6 787-2) MCH (test code = 29.0 pg 26.1-32.7 785-6) MCHC (test code = 33.8 g/dL 31.2-35.0 786-4) RDW-SD (test code = 50.3 fL 38.5-51.6 53692-5) RDW-CV (test code = 16.4 % 12.1-15.4 H 788-0) PLT (test code = 331 See_Comment H [Automated 777-3) message] The system which generated this result transmit gonsalo reference range : 150 - 328 10*3/ ?L. The reference range was not u sed to interpret th is result as normal/abnormal . MPV (test code = 10.3 fL 9.8-13.0 38152-5) NRBC/100 WBC (test 0.0 See_Comment [Automat ed code = 1480721613) message] The system which generated this result transmit gonsalo reference range : 0.0 - 10.0 /100 WBCs. The reference range was not used to interpret this result as normal/abnormal . NRBC x10^3 (test code See_Comment [Auto mated = 2812366205) message] The system which generated this result transmit gonsalo reference range : 10*3/?L. The reference range was not used to interpret this result as normal/abnormal . GRAN MAT (NEUT) % 92.0 % (test code = 770-8) IMM GRAN % (test code 0.70 % = 1815683979) LYMPH % (test code = 3.0 % 736-9) MONO % (test code = 4.1 % 5905-5) EOS % (test code = 0.0 % 713-8) BASO % (test code = 0.2 % 706-2) GRAN MAT x10^3(ANC) 22.55 10*3/uL 1.99-6.95 H (test code = 8473966580) IMM GRAN x10^3 (test 0.16 10*3/uL 0.00-0.06 H code = 5702084669) LYMPH x10^3 (test code 0.73 10*3/uL 1.09-3.23 L = 731-0) MONO x10^3 (test code 1.01 10*3/uL 0.36-1.02 = 742-7) EOS x10^3 (test code = 0.06-0.53 L 711-2) BASO x10^3 (test code 0.04 10*3/uL 0.01-0.09 = 704-7) Lab Interpretation Abnormal (test code = 39258-8) [facility] WITH [id number] 11:20:31 Test Item Value Reference Range Interpretation Comments WBC (test code = 24.49 See_Comment H [Automated 6690-2) message] The system which generated this result transmit gonsalo reference range : 4.20 - 10.70 10*3/?L. The reference range was not used to interpret this result as normal/abnormal . RBC (test code = 3.14 See_Comment L [Automated 789-8) message] The system which generated this result transmit gonsalo reference range : 4.26 - 5.52 10*6/?L. The reference range was not used to interpret this result as normal/abnormal . HGB (test code = 9.1 g/dL 12.2-16.4 L 718-7) HCT (test code = 26.9 % 38.4-49.3 L 4544-3) MCV (test code = 85.7 fL 81.7-95.6 787-2) MCH (test code = 29.0 pg 26.1-32.7 785-6) MCHC (test code = 33.8 g/dL 31.2-35.0 786-4) RDW-SD (test code = 50.3 fL 38.5-51.6 74732-5) RDW-CV (test code = 16.4 % 12.1-15.4 H 788-0) PLT (test code = 331 See_Comment H [Automated 777-3) message] The system which generated this result transmit gonsalo reference range : 150 - 328 10*3/ ?L. The reference range was not u sed to interpret th is result as normal/abnormal . MPV (test code = 10.3 fL 9.8-13.0 79507-6) NRBC/100 WBC (test 0.0 See_Comment [Automat ed code = 8000237611) message] The system which generated this result transmit gonsalo reference range : 0.0 - 10.0 /100 WBCs. The reference range was not used to interpret this result as normal/abnormal . NRBC x10^3 (test code See_Comment [Auto mated = 5395319482) message] The system which generated this result transmit gonsalo reference range : 10*3/?L. The reference range was not used to interpret this result as normal/abnormal . GRAN MAT (NEUT) % 92.0 % (test code = 770-8) IMM GRAN % (test code 0.70 % = 0009769057) LYMPH % (test code = 3.0 % 736-9) MONO % (test code = 4.1 % 5905-5) EOS % (test code = 0.0 % 713-8) BASO % (test code = 0.2 % 706-2) GRAN MAT x10^3(ANC) 22.55 10*3/uL 1.99-6.95 H (test code = 8474139482) IMM GRAN x10^3 (test 0.16 10*3/uL 0.00-0.06 H code = 3579245815) LYMPH x10^3 (test code 0.73 10*3/uL 1.09-3.23 L = 731-0) MONO x10^3 (test code 1.01 10*3/uL 0.36-1.02 = 742-7) EOS x10^3 (test code = 0.06-0.53 L 711-2) BASO x10^3 (test code 0.04 10*3/uL 0.01-0.09 = 704-7) Lab Interpretation Abnormal (test code = 92117-6) [facility] [id number] 08:02:39 Test Item Value Reference Range Interpretation Comments TROPONIN I (test code = 0.383 ng/mL <=0.034 H 9359137049) RAJESH (test code = RAJESH) Reference (Normal) Range (defined by the 99th percentile reference limit): <= 0.034 ng/mL Note: Cardiac troponin begins to rise 3-4 hours after the onset of ischemia. Repeat in 4-6 hours if the sample was drawn within 3-4 hours of the onset of the symptom and found normal. Diagnosis of myocardial injury is made with acute changes in cTn concentrations with at least one serial sample above the 99th percentile upper reference limit (URL), taken together with the patient's clinical presentation. Biotin has been reported to cause a negative bias, interpret results relative to patient's use of biotin. Lab Interpretation Abnormal (test code = 53586-2) [facility] [id number] 08:02:39 Test Item Value Reference Range Interpretation Comments TROPONIN I (test code = 0.383 ng/mL <=0.034 H 2805696780) RAJESH (test code = RAJESH) Reference (Normal) Range (defined by the 99th percentile reference limit): <= 0.034 ng/mL Note: Cardiac troponin begins to rise 3-4 hours after the onset of ischemia. Repeat in 4-6 hours if the sample was drawn within 3-4 hours of the onset of the symptom and found normal. Diagnosis of myocardial injury is made with acute changes in cTn concentrations with at least one serial sample above the 99th percentile upper reference limit (URL), taken together with the patient's clinical presentation. Biotin has been reported to cause a negative bias, interpret results relative to patient's use of biotin. Lab Interpretation Abnormal (test code = 59864-3) [facility] [id number] 07:16:48 Test Item Value Reference Range Interpretation Comments LACTIC ACID (test code = 2.63 mmol/L 0.50-2.20 H 0043524289) Lab Interpretation (test code = Abnormal 97701-3) [facility] [id number] 07:16:48 Test Item Value Reference Range Interpretation Comments LACTIC ACID (test code = 2.63 mmol/L 0.50-2.20 H 2468793043) Lab Interpretation (test code = Abnormal 83686-1) [facility] (NA, K, CL, CO2, GLUCOSE, BUN, CREATININE, CA)2023-08-30 06:29:07 Test Item Value Reference Range Interpretation Comments NA (test code = 139 mmol/L 135-145 9203509156) K (test code = 3.6 mmol/L 3.5-5.0 0933506505) CL (test code = 108 mmol/L 98-108 2629689075) CO2 TOTAL (test code = 20 mmol/L 23-31 L 4354048040) AGAP (test code = 11 2-16 3408961614) BUN (test code = 15 mg/dL 7-23 1682527431) GLUCOSE (test code = 228 mg/dL 70-110 H 8876812855) CREATININE (test code = 0.54 mg/dL 0.60-1.25 L 1678721008) CALCIUM (test code = 8.0 mg/dL 8.6-10.6 L 0450912646) eGFR (test code = 147.5 mL/min/1.73m2 9863110213) RAJESH (test code = RAJESH) Association of Glomerular Filtration Rate (GFR) and Staging of Kidney Disease* + --+ --+ ------+| GFR (mL/min/1.73 m2) ?| With Kidney Damage ?| ?Without Kidney Damage+ --------+ --------+ +| ?>90 ?| ?Stage one ?| ? Normal ?+ ---+ ---+ -------+| ?60-89 ?| ?Stage two ?| ? Decreased GFR ? + --+ --+ ------+| ?30-59 ?| ?Stage three ?| ? Stage three ? + --+ --+ ------+| ?15-29 ?| ?Stage four ? | ? Stage four ?+ ---+ ---+ -------+| ?<15 (or dialysis) ? ?| ?Stage five ? | ? Stage five ?+ ---+ ---+ -------+ *Each stage assumes the associated GFR level has been in effect for at least three months. ?Stages 1 to 5, with or without kidney disease, indicate chronic kidney disease. Notes: Determination of stages one and two (with eGFR >59mL/min/1.73 m2) requires estimation of kidney damage for at least three months as defined by structural or functional abnormalities of the kidney, manifested by either:Pathological abnormalities or Markers of kidney damage (including abnormalities in the composition of the blood or urine or abnormalities in imaging tests). Lab Interpretation Abnormal (test code = 59009-5) [facility] (NA, K, CL, CO2, GLUCOSE, BUN, CREATININE, CA)2023-08-30 06:29:07 Test Item Value Reference Range Interpretation Comments NA (test code = 139 mmol/L 135-145 8039121932) K (test code = 3.6 mmol/L 3.5-5.0 8229366145) CL (test code = 108 mmol/L 98-108 4147120491) CO2 TOTAL (test code = 20 mmol/L 23-31 L 6072489773) AGAP (test code = 11 2-16 8644814004) BUN (test code = 15 mg/dL 7-23 6402036364) GLUCOSE (test code = 228 mg/dL 70-110 H 2483523847) CREATININE (test code = 0.54 mg/dL 0.60-1.25 L 5606993095) CALCIUM (test code = 8.0 mg/dL 8.6-10.6 L 2049132391) eGFR (test code = 147.5 mL/min/1.73m2 3273261420) RAJESH (test code = RAJESH) Association of Glomerular Filtration Rate (GFR) and Staging of Kidney Disease* + --+ --+ ------+| GFR (mL/min/1.73 m2) ?| With Kidney Damage ?| ?Without Kidney Damage+ --------+ --------+ +| ?>90 ?| ?Stage one ?| ? Normal ?+ ---+ ---+ -------+| ?60-89 ?| ?Stage two ?| ? Decreased GFR ? + --+ --+ ------+| ?30-59 ?| ?Stage three ?| ? Stage three ? + --+ --+ ------+| ?15-29 ?| ?Stage four ? | ? Stage four ?+ ---+ ---+ -------+| ?<15 (or dialysis) ? ?| ?Stage five ? | ? Stage five ?+ ---+ ---+ -------+ *Each stage assumes the associated GFR level has been in effect for at least three months. ?Stages 1 to 5, with or without kidney disease, indicate chronic kidney disease. Notes: Determination of stages one and two (with eGFR >59mL/min/1.73 m2) requires estimation of kidney damage for at least three months as defined by structural or functional abnormalities of the kidney, manifested by either:Pathological abnormalities or Markers of kidney damage (including abnormalities in the composition of the blood or urine or abnormalities in imaging tests). Lab Interpretation Abnormal (test code = 29555-0) [facility] [id number] 03:50:06 Test Item Value Reference Range Interpretation Comments TROPONIN I (test code = 0.259 ng/mL <=0.034 H 1910614647) RAJESH (test code = RAJESH) Reference (Normal) Range (defined by the 99th percentile reference limit): <= 0.034 ng/mL Note: Cardiac troponin begins to rise 3-4 hours after the onset of ischemia. Repeat in 4-6 hours if the sample was drawn within 3-4 hours of the onset of the symptom and found normal. Diagnosis of myocardial injury is made with acute changes in cTn concentrations with at least one serial sample above the 99th percentile upper reference limit (URL), taken together with the patient's clinical presentation. Biotin has been reported to cause a negative bias, interpret results relative to patient's use of biotin. Lab Interpretation Abnormal (test code = 02561-5) [facility] [id number] 03:50:06 Test Item Value Reference Range Interpretation Comments TROPONIN I (test code = 0.259 ng/mL <=0.034 H 5652847842) RAJESH (test code = RAJESH) Reference (Normal) Range (defined by the 99th percentile reference limit): <= 0.034 ng/mL Note: Cardiac troponin begins to rise 3-4 hours after the onset of ischemia. Repeat in 4-6 hours if the sample was drawn within 3-4 hours of the onset of the symptom and found normal. Diagnosis of myocardial injury is made with acute changes in cTn concentrations with at least one serial sample above the 99th percentile upper reference limit (URL), taken together with the patient's clinical presentation. Biotin has been reported to cause a negative bias, interpret results relative to patient's use of biotin. Lab Interpretation Abnormal (test code = 39038-4) [facility] [id number] 03:18:24 Test Item Value Reference Range Interpretation Comments LACTIC ACID (test code = 2.41 mmol/L 0.50-2.20 H 4706101683) Lab Interpretation (test code = Abnormal 47052-5) [facility] Acid Whole [id number] 03:18:24 Test Item Value Reference Range Interpretation Comments LACTIC ACID (test code = 2.41 mmol/L 0.50-2.20 H 6870589597) Lab Interpretation (test code = Abnormal 20900-2) [facility] WITH [id number] 23:58:37 Test Item Value Reference Range Interpretation Comments WBC (test code = 18.61 See_Comment H [Automated 6690-2) message] The system which generated this result transmit gonsalo reference range : 4.20 - 10.70 10*3/?L. The reference range was not used to interpret this result as normal/abnormal . RBC (test code = 3.06 See_Comment L [Automated 959-8) message] The system which generated this result transmit gonsalo reference range : 4.26 - 5.52 10*6/?L. The reference range was not used to interpret this result as normal/abnormal . HGB (test code = 8.8 g/dL 12.2-16.4 L 718-7) HCT (test code = 26.5 % 38.4-49.3 L 4544-3) MCV (test code = 86.6 fL 81.7-95.6 787-2) MCH (test code = 28.8 pg 26.1-32.7 785-6) MCHC (test code = 33.2 g/dL 31.2-35.0 786-4) RDW-SD (test code = 51.5 fL 38.5-51.6 17997-7) RDW-CV (test code = 16.5 % 12.1-15.4 H 788-0) PLT (test code = 342 See_Comment H [Automated 777-3) message] The system which generated this result transmit gonsalo reference range : 150 - 328 10*3/ ?L. The reference range was not u sed to interpret th is result as normal/abnormal . MPV (test code = 10.6 fL 9.8-13.0 91844-2) NRBC/100 WBC (test 0.0 See_Comment [Automat ed code = 7481969030) message] The system which generated this result transmit gonsalo reference range : 0.0 - 10.0 /100 WBCs. The reference range was not used to interpret this result as normal/abnormal . NRBC x10^3 (test code See_Comment [Auto mated = 3824212261) message] The system which generated this result transmit gonsalo reference range : 10*3/?L. The reference range was not used to interpret this result as normal/abnormal . GRAN MAT (NEUT) % 55.3 % (test code = 770-8) IMM GRAN % (test code 0.60 % = 0617746586) LYMPH % (test code = 31.5 % 736-9) MONO % (test code = 9.5 % 5905-5) EOS % (test code = 2.1 % 713-8) BASO % (test code = 1.0 % 706-2) GRAN MAT x10^3(ANC) 10.28 10*3/uL 1.99-6.95 H (test code = 5528481670) IMM GRAN x10^3 (test 0.12 10*3/uL 0.00-0.06 H code = 1657653422) LYMPH x10^3 (test code 5.87 10*3/uL 1.09-3.23 H = 731-0) MONO x10^3 (test code 1.76 10*3/uL 0.36-1.02 H = 742-7) EOS x10^3 (test code = 0.39 10*3/uL 0.06-0.53 711-2) BASO x10^3 (test code 0.19 10*3/uL 0.01-0.09 H = 704-7) NANCY CELLS (test code 2+ See_Comment A [Auto mated = 7790-9) message] The system which generated this result transmit gonsalo reference range : (none). The reference range was not used to interpret this result as normal/abnormal . Lab Interpretation Abnormal (test code = 88643-3) [facility] WITH [id number] 23:58:37 Test Item Value Reference Range Interpretation Comments WBC (test code = 18.61 See_Comment H [Automated 6690-2) message] The system which generated this result transmit gonsalo reference range : 4.20 - 10.70 10*3/?L. The reference range was not used to interpret this result as normal/abnormal . RBC (test code = 3.06 See_Comment L [Automated 789-8) message] The system which generated this result transmit gonsalo reference range : 4.26 - 5.52 10*6/?L. The reference range was not used to interpret this result as normal/abnormal . HGB (test code = 8.8 g/dL 12.2-16.4 L 718-7) HCT (test code = 26.5 % 38.4-49.3 L 4544-3) MCV (test code = 86.6 fL 81.7-95.6 787-2) MCH (test code = 28.8 pg 26.1-32.7 785-6) MCHC (test code = 33.2 g/dL 31.2-35.0 786-4) RDW-SD (test code = 51.5 fL 38.5-51.6 83122-1) RDW-CV (test code = 16.5 % 12.1-15.4 H 788-0) PLT (test code = 342 See_Comment H [Automated 777-3) message] The system which generated this result transmit gonsalo reference range : 150 - 328 10*3/ ?L. The reference range was not u sed to interpret th is result as normal/abnormal . MPV (test code = 10.6 fL 9.8-13.0 37916-3) NRBC/100 WBC (test 0.0 See_Comment [Automat ed code = 9546389231) message] The system which generated this result transmit gonsalo reference range : 0.0 - 10.0 /100 WBCs. The reference range was not used to interpret this result as normal/abnormal . NRBC x10^3 (test code See_Comment [Auto mated = 2519435294) message] The system which generated this result transmit gonsalo reference range : 10*3/?L. The reference range was not used to interpret this result as normal/abnormal . GRAN MAT (NEUT) % 55.3 % (test code = 770-8) IMM GRAN % (test code 0.60 % = 7964657944) LYMPH % (test code = 31.5 % 736-9) MONO % (test code = 9.5 % 5905-5) EOS % (test code = 2.1 % 713-8) BASO % (test code = 1.0 % 706-2) GRAN MAT x10^3(ANC) 10.28 10*3/uL 1.99-6.95 H (test code = 0173538232) IMM GRAN x10^3 (test 0.12 10*3/uL 0.00-0.06 H code = 2209646259) LYMPH x10^3 (test code 5.87 10*3/uL 1.09-3.23 H = 731-0) MONO x10^3 (test code 1.76 10*3/uL 0.36-1.02 H = 742-7) EOS x10^3 (test code = 0.39 10*3/uL 0.06-0.53 711-2) BASO x10^3 (test code 0.19 10*3/uL 0.01-0.09 H = 704-7) NANCY CELLS (test code 2+ See_Comment A [Auto mated = 3790-9) message] The system which generated this result transmit gonsalo reference range : (none). The reference range was not used to interpret this result as normal/abnormal . Lab Interpretation Abnormal (test code = 38111-1) [facility] [id number] 23:42:49 Test Item Value Reference Range Interpretation Comments APTT Patient (test code 24 See_Comment L [Au tomated message] = 2673-2) The system ic h generated this result transmitted ref erence range: 26 - 36 Seconds. The reference range was not used to int erpret this result as normal/abnormal . Lab Interpretation (test Abnormal code = 49203-5) [facility] / [id number] 23:42:49 Test Item Value Reference Range Interpretation Comments PROTIME PATIENT (test 13.1 See_Comment H [Auto mated message] code = 5964-2) The system [employer] generated this result transmitted ref erence range: 10.1 - 1 2.6 Seconds. The reference range was not used to int erpret this result as normal/abnormal . INR (test code = 6301-6) 1.1 Nor mal INR <1.1; Warfarin Therap eutic range 2.0 to 3. 0 or 2.5 to 3.5, dep ending upon the indica tions. Lab Interpretation (test Abnormal code = 33874-8) [facility] [id number] 23:42:49 Test Item Value Reference Range Interpretation Comments APTT Patient (test code 24 See_Comment L [Au tomated message] = 3173-2) The system [facility] [employer] generated this result transmitted ref erence range: 26 - 36 Seconds. The reference range was not used to int erpret this result as normal/abnormal . Lab Interpretation (test Abnormal code = 54371-5) [facility] / [id number] 23:42:49 Test Item Value Reference Range Interpretation Comments PROTIME PATIENT (test 13.1 See_Comment H [Auto mated message] code = 5964-2) The system [employer] generated this result transmitted ref erence range: 10.1 - 1 2.6 Seconds. The reference range was not used to int erpret this result as normal/abnormal . INR (test code = 6301-6) 1.1 Nor mal INR <1.1; Warfarin Therap eutic range 2.0 to 3. 0 or 2.5 to 3.5, dep ending upon the indica tions. Lab Interpretation (test Abnormal code = 03216-5) [facility] [id number] 23:38:08 Test Item Value Reference Range Interpretation Comments NT-proBNP (test code = 9580 pg/mL <=125 H 95203-7) RAJESH (test code = RAJESH) Positive: Heart Failure Likely Lab Interpretation (test Abnormal code = 77224-1) [facility] [id number] 23:38:08 Test Item Value Reference Range Interpretation Comments TROPONIN I (test code = 0.222 ng/mL <=0.034 H 8553776630) RAJESH (test code = RAJESH) Reference (Normal) Range (defined by the 99th percentile reference limit): <= 0.034 ng/mL Note: Cardiac troponin begins to rise 3-4 hours after the onset of ischemia. Repeat in 4-6 hours if the sample was drawn within 3-4 hours of the onset of the symptom and found normal. Diagnosis of myocardial injury is made with acute changes in cTn concentrations with at least one serial sample above the 99th percentile upper reference limit (URL), taken together with the patient's clinical presentation. Biotin has been reported to cause a negative bias, interpret results relative to patient's use of biotin. Lab Interpretation Abnormal (test code = 56011-1) [facility] [id number] 23:38:08 Test Item Value Reference Range Interpretation Comments NT-proBNP (test code = 9580 pg/mL <=125 H 64097-4) RAJESH (test code = RAJESH) Positive: Heart Failure Likely Lab Interpretation (test Abnormal code = 58812-3) [facility] [id number] 23:38:08 Test Item Value Reference Range Interpretation Comments TROPONIN I (test code = 0.222 ng/mL <=0.034 H 9002171573) RAJESH (test code = RAJESH) Reference (Normal) Range (defined by the 99th percentile reference limit): <= 0.034 ng/mL Note: Cardiac troponin begins to rise 3-4 hours after the onset of ischemia. Repeat in 4-6 hours if the sample was drawn within 3-4 hours of the onset of the symptom and found normal. Diagnosis of myocardial injury is made with acute changes in cTn concentrations with at least one serial sample above the 99th percentile upper reference limit (URL), taken together with the patient's clinical presentation. Biotin has been reported to cause a negative bias, interpret results relative to patient's use of biotin. Lab Interpretation Abnormal (test code = 84223-6) [facility] [id number] 23:38:08 Test Item Value Reference Range Interpretation Comments NT-proBNP (test code = 9580 pg/mL <=125 H 37953-6) RAJESH (test code = RAJESH) Positive: Heart Failure Likely Lab Interpretation (test Abnormal code = 67762-9) [facility] METABOLIC PANEL (NA, K, CL, CO2, GLUCOSE, BUN, CREATININE, CA)2023-08-29 23:32:10 Test Item Value Reference Range Interpretation Comments NA (test code = 138 mmol/L 135-145 8000375800) K (test code = 2.9 mmol/L 3.5-5.0 LL 8950482992) CL (test code = 108 mmol/L 98-108 1752210056) CO2 TOTAL (test code = 22 mmol/L 23-31 L 8302875834) AGAP (test code = 8 2-16 8441822414) BUN (test code = 17 mg/dL 7-23 5362232149) GLUCOSE (test code = 136 mg/dL 70-110 H 1222481554) CREATININE (test code = 0.55 mg/dL 0.60-1.25 L 9771213143) CALCIUM (test code = 7.8 mg/dL 8.6-10.6 L 6644234893) eGFR (test code = 144.4 mL/min/1.73m2 5610823807) RAJESH (test code = RAJESH) Association of Glomerular Filtration Rate (GFR) and Staging of Kidney Disease* + --+ --+ ------+| GFR (mL/min/1.73 m2) ?| With Kidney Damage ?| ?Without Kidney Damage+ --------+ --------+ +| ?>90 ?| ?Stage one ?| ? Normal ?+ ---+ ---+ -------+| ?60-89 ?| ?Stage two ?| ? Decreased GFR ? + --+ --+ ------+| ?30-59 ?| ?Stage three ?| ? Stage three ? + --+ --+ ------+| ?15-29 ?| ?Stage four ? | ? Stage four ?+ ---+ ---+ -------+| ?<15 (or dialysis) ? ?| ?Stage five ? | ? Stage five ?+ ---+ ---+ -------+ *Each stage assumes the associated GFR level has been in effect for at least three months. ?Stages 1 to 5, with or without kidney disease, indicate chronic kidney disease. Notes: Determination of stages one and two (with eGFR >59mL/min/1.73 m2) requires estimation of kidney damage for at least three months as defined by structural or functional abnormalities of the kidney, manifested by either:Pathological abnormalities or Markers of kidney damage (including abnormalities in the composition of the blood or urine or abnormalities in imaging tests). Lab Interpretation Abnormal (test code = 54218-5) [facility] (NA, K, CL, CO2, GLUCOSE, BUN, CREATININE, CA)2023-08-29 23:32:10 Test Item Value Reference Range Interpretation Comments NA (test code = 138 mmol/L 135-145 1138044793) K (test code = 2.9 mmol/L 3.5-5.0 LL 4517222341) CL (test code = 108 mmol/L 98-108 9662658866) CO2 TOTAL (test code = 22 mmol/L 23-31 L 3152999092) AGAP (test code = 8 2-16 1973157653) BUN (test code = 17 mg/dL 7-23 5423667946) GLUCOSE (test code = 136 mg/dL 70-110 H 3760798207) CREATININE (test code = 0.55 mg/dL 0.60-1.25 L 7046987193) CALCIUM (test code = 7.8 mg/dL 8.6-10.6 L 6508983264) eGFR (test code = 144.4 mL/min/1.73m2 3818549268) RAJESH (test code = RAJESH) Association of Glomerular Filtration Rate (GFR) and Staging of Kidney Disease* + --+ --+ ------+| GFR (mL/min/1.73 m2) ?| With Kidney Damage ?| ?Without Kidney Damage+ --------+ --------+ +| ?>90 ?| ?Stage one ?| ? Normal ?+ ---+ ---+ -------+| ?60-89 ?| ?Stage two ?| ? Decreased GFR ? + --+ --+ ------+| ?30-59 ?| ?Stage three ?| ? Stage three ? + --+ --+ ------+| ?15-29 ?| ?Stage four ? | ? Stage four ?+ ---+ ---+ -------+| ?<15 (or dialysis) ? ?| ?Stage five ? | ? Stage five ?+ ---+ ---+ -------+ *Each stage assumes the associated GFR level has been in effect for at least three months. ?Stages 1 to 5, with or without kidney disease, indicate chronic kidney disease. Notes: Determination of stages one and two (with eGFR >59mL/min/1.73 m2) requires estimation of kidney damage for at least three months as defined by structural or functional abnormalities of the kidney, manifested by either:Pathological abnormalities or Markers of kidney damage (including abnormalities in the composition of the blood or urine or abnormalities in imaging tests). Lab Interpretation Abnormal (test code = 89924-6) [facility] Test Item Value Reference Range Interpretation Comments MAGNESIUM (test code = 2005340948) 2.0 mg/dL 1.7-2.4 Lab Interpretation (test code = Normal 00991-5) [facility] 23:27[facility]45 Test Item Value Reference Range Interpretation Comments MAGNESIUM (test code = 8860443140) 2.0 mg/dL 1.7-2.4 Lab Interpretation (test code = Normal 33534-2) [facility] P[facility] RBC (in units), 2 Units 2023-08-29 20:06:18 Test Item Value Reference Range Interpretation Comments Cross Match Result Compatible (test code = 4409) ISBT Blood Type Code 5100 (test code = 098275) Unit Blood Type (test O Pos code = 4410) Unit Number (test [id number] code = 4411) Blood Expiration Date & Time (test code = 747820) Status Information Released (test code = 4412) Product Red Blood Cells Identification (test code = 4413) Product Code (test [id number] Performed at [facility] code = 4414) Laboratory Services - [facility] Blood [address] [place] [address]Maps Free: [phone] A No. [id number] [facility] Packed RBC (in units), 2 Units 2023-08-29 20:06:18 Test Item Value Reference Range Interpretation Comments Cross Match Result Compatible (test code = 4409) ISBT Blood Type Code 5100 (test code = 692331) Unit Blood Type (test O Pos code = 4410) Unit Number (test [id number] code = 4411) Blood Expiration Date & Time (test code = 665142) Status Information Released (test code = 4412) Product Red Blood Cells Identification (test code = 4413) Product Code (test [id number] Performed at [facility] code = 4414) Laboratory Services [facility] Blood [address] [address]Fpdl Free: [phone] A No. [id number] [facility] Packed RBC (in units), 2 Units 2023-08-29 20:06:18 Test Item Value Reference Range Interpretation Comments Cross Match Result Compatible (test code = 4409) ISBT Blood Type Code 5100 (test code = 039343) Unit Blood Type (test O Pos code = 4410) Unit Number (test [id number] code = 4411) Blood Expiration Date & Time (test code = 716592) Status Information Released (test code = 4412) Product Red Blood Cells Identification (test code = 4413) Product Code (test [id number] Performed at [facility] code = 4414) Laboratory Services [facility] Blood [address] [address]Mlxk Free: [phone] A No. [id number] [facility] Packed RBC (in units), 2 Units 2023-08-29 20:06:18 Test Item Value Reference Range Interpretation Comments Cross Match Result Compatible (test code = 4409) ISBT Blood Type Code 5100 (test code = 871317) Unit Blood Type (test O Pos code = 4410) Unit Number (test [id number] code = 4411) Blood Expiration Date & Time (test code = 011097) Status Information Released (test code = 4412) Product Red Blood Cells Identification (test code = 4413) Product Code (test W4744I80 Performed at [facility] code = 4414) Laboratory Services - [facility] [address] [address]Rhvo Free: [phone] A No. [id number] [facility] [id number] 11:38:02 Test Item Value Reference Range Interpretation Comments POC-GLUCOSE METER 166 mg/dL 70-110 H : TESTED A T [facility] 6720 (BEAKER) (test code = [facility], 1538) [address]: Draw Machine Operator/Techni krystal ID = [id number] for Frank Velarde POCT-GLUCOSE [id number] 07:51:21 Test Item Value Reference Range Interpretation Comments POC-GLUCOSE METER 115 mg/dL 70-110 H : TESTED A T [facility] 67[address] (BEAKER) (test code = [facility], 1538) 43683: Draw Machine Operator/Techni krystal ID = [id number] for Frank Velarde COMPREHENSIVE METABOLIC [id number] 05:34:48 Test Item Value Reference Range Interpretation [...] not appl icable for dialysis patien ts Draw Machine Operator ID - [id number] 05:34:48 Test Item Value Reference Range Interpretation Comments MAGNESIUM (BEAKER) (test code = 2.0 mg/dL 1.6-2.6 627) Draw Machine Operator ID - BSCBC W/PLT COUNT & AUTO [id number] 05:01:35 Test Item Value Reference Range Interpretation [...] PERCENT (BEAKER) (test code = 2801) BLOOD [id number] 02:00:48 Test Item Value Reference Range Interpretation Comments CULTURE (BEAKER) (test No growth in 5 days code = 1095) BLOOD [id number] 02:00:48 Test Item Value Reference Range Interpretation Comments CULTURE (BEAKER) (test No growth in 5 days code = 1095) POCT-GLUCOSE [id number] 20:35:03 Test Item Value Reference Range Interpretation Comments POC-GLUCOSE METER 182 mg/dL 70-110 H : TESTED A T [facility] 67[address] (BEAKER) (test code = [place] [place] [place], 1538) [address]: Draw Machine Operator/Techni krystal ID = [id number] for SAY LIN POCT-GLUCOSE [id number] 17:59:48 Test Item Value Reference Range Interpretation Comments POC-GLUCOSE METER 158 mg/dL 70-110 H : TESTED A T [facility] 67[address] (BEAKER) (test code = [facility] [place], 1538) 10176: Draw Machine Operator/Techni krystal ID = [id number] for Kraig Nicole BASIC METABOLIC [id number] 03:14:39 Test Item Value Reference Range Interpretation [...] not appl icable for dialysis patien ts Draw Machine Operator ID - [id number] 03:14:39 Test Item Value Reference Range Interpretation Comments MAGNESIUM (BEAKER) (test code = 2.0 mg/dL 1.6-2.6 627) Draw Machine Operator ID - [id number] 03:14:39 Test Item Value Reference Range Interpretation Comments PHOSPHORUS (BEAKER) (test code = 2.6 mg/dL 2.3-4.7 604) Draw Machine Operator ID - BSCBC W/PLT COUNT & AUTO [id number] 02:55:55 Test Item Value Reference Range Interpretation [...] PERCENT (BEAKER) (test code = 2801) POCT-GLUCOSE [id number] 22:43:31 Test Item Value Reference Range Interpretation Comments POC-GLUCOSE METER 149 mg/dL 70-110 H : TESTED A T [facility] 6720 (BEAKER) (test code = [facility], 153) 45548: Draw Machine Operator/Techni krystal ID = [id number] for Mi Moore HEMOGLOBIN AND [id number] 19:32:14 Test Item Value Reference Range Interpretation Comments HEMOGLOBIN (BEAKER) (test code = 9.0 GM/DL 13.7-17.5 L 410) HEMATOCRIT (BEAKER) (test code = 26.5 % 40.1-51.0 L 411) Draw Machine Operator ID - [id number] ID - [id number]-GLUCOSE [id number] 18:38:52 Test Item Value Reference Range Interpretation Comments POC-GLUCOSE METER 189 mg/dL 70-110 H : TESTED A T [facility] 6720 (BEAKER) (test code = [facility], 153) 13038: Draw Machine Operator/Techni krystal ID = [id number] for MA RIN, ANA POCT-GLUCOSE [id number] 17:55:02 Test Item Value Reference Range Interpretation Comments POC-GLUCOSE METER 199 mg/dL 70-110 H : TESTED A T [facility] 6720 (BEAKER) (test code = [facility], 153) 21765: Draw Machine Operator/Techni krystal ID = [id number] for MA RIN, ANA POCT-GLUCOSE [id number] 11:46:23 Test Item Value Reference Range Interpretation Comments POC-GLUCOSE METER 104 mg/dL 70-110 : TESTED A T [facility] 6720 (BEAKER) (test code = [facility], 153) 13625: Draw Machine Operator/Techni krystal ID = [id number] for MA RIN, ANA POCT-GLUCOSE [id number] 05:39:48 Test Item Value Reference Range Interpretation Comments POC-GLUCOSE METER 87 mg/dL 70-110 : TESTED A T [facility] 6720 (BEAKER) (test code = [facility], 1538) 64516: Draw Machine Operator/Techni krystal ID = [id number] for Brant perea (contract)July [id number] 05:39:22 Test Item Value Reference Range Interpretation Comments MAGNESIUM (BEAKER) (test code = 2.0 mg/dL 1.6-2.6 627) Draw Machine Operator ID - EMBASIC METABOLIC [id number] 05:39:21 Test Item Value Reference Range Interpretation [...] (test code = 697) EGFR (BEAKER) 99 Interpretati on of eGFR (test code = mL/min/1.73 values Stage De scription 1092) sq m Result G1 Haleigh l or high >=90 G2 Mildly decreased 60-89 G3a Mildl y to moderately 45-5 9 G3b Moderately to s everely 30-44 G4 Severl y decreased 15-29 G5 Kidney failure <15Reported eGF R is based on the CKD-EPI 1 equation that d oes not use a race coefficientEsti mated GFR is not as accur ate as Creatinine Cristina solorzano in predicting glom erular filtration rate . Estimated GFR is not appl icable for dialysis patien ts Draw Machine Operator ID - EMCBC W/PLT COUNT & AUTO [id number] 05:12:43 Test Item Value Reference Range Interpretation [...] PERCENT (BEAKER) (test code = 2801) POCT-GLUCOSE [id number] 23:44:58 Test Item Value Reference Range Interpretation Comments POC-GLUCOSE METER 90 mg/dL 70-110 : TESTED A T [facility] 6720 (BEAKER) (test code = [facility], 153) 05971: Draw Machine Operator/Techni krystal ID = [id number] for Brant ry (contract), July leal POCT-GLUCOSE [id number] 18:34:41 Test Item Value Reference Range Interpretation Comments POC-GLUCOSE METER 92 mg/dL 70-110 : TESTED A T [facility] 6720 (BEAKER) (test code = [facility], 1538) 56736: Draw Machine Operator/Techni krystal ID = [id number] for Albert s (contract), Gaf brock POCT-GLUCOSE [id number] 13:59:34 Test Item Value Reference Range Interpretation Comments POC-GLUCOSE METER 111 mg/dL 70-110 H : TESTED A T [facility] 6720 (BEAKER) (test code = [facility], 153) 58636: Draw Machine Operator/Techni krystal ID = [id number] for Bu ggs (contract), Gaf brock CBC W/PLT COUNT & AUTO [id number] 09:52:45 Test Item Value Reference Range Interpretation [...] 0.00-1.00 PERCENT (BEAKER) (test code = 2801) [id number] 09:04:51 Test Item Value Reference Range Interpretation Comments PHOSPHORUS (BEAKER) (test code = 2.3 mg/dL 2.3-4.7 604) Draw Machine Operator ID - EMCBC W/PLT COUNT & AUTO [id number] 06:45:07 Test Item Value Reference Range Interpretation [...] (BEAKER) (test code = 2801) BASIC METABOLIC [id number] 06:37:10 Test Item Value Reference Range Interpretation [...] not appl icable for dialysis patien ts Draw Machine Operator ID - [id number] 06:36:35 Test Item Value Reference Range Interpretation Comments MAGNESIUM (BEAKER) (test code = 1.8 mg/dL 1.6-2.6 627) Draw Machine Operator ID - MMPOCT-GLUCOSE [id number] 05:30:38 Test Item Value Reference Range Interpretation Comments POC-GLUCOSE METER 87 mg/dL 70-110 : TESTED A T [facility] 6720 (BEAKER) (test code = [facility], 153) 46066: Draw Machine Operator/Techni krystal ID = [id number] for NgSae amaro POCT-GLUCOSE [id number] 01:03:07 Test Item Value Reference Range Interpretation Comments POC-GLUCOSE METER 91 mg/dL 70-110 : TESTED A T [facility] 6720 (BEAKER) (test code = [facility], 1538) 61288: Draw Machine Operator/Techni krystal ID = [id number] for Nguy en, Vincent CBC W/PLT COUNT & AUTO [id number] 01:02:06 Test Item Value Reference Range Interpretation [...] code = 2801) XR ABDOMEN/KUB 1 VIEW [id number] 21:16:50 [facility] 1945 Sex: MEXAM/TECHNIQUE: XR ABDOMEN/KUB 1 VIEW PORTABLEINDICATION: Enteric tube placement verificationCOMPARISON: 08/12/2023.FINDINGS: Gastric tube and sidehole terminate in the expected location of thestomach. No dilatedloops of large small bowel. No acute osseousprocess. Lung bases are clear.IMPRESSION:Gastric tube and sidehole terminate in the expected location of thestomach.Electronically Signed By: Garrett Rodas08/13/2023 21:18 CDTWorkstation Name: [id number] METER 2023-08-13 19:17:39 Test Item Value Reference Range Interpretation Comments POC-GLUCOSE METER 100 mg/dL 70-110 : TESTED A T [facility] 6720 ([facility]) (test code = [facility] [place], 1538) 01915: Draw Machine Operator/Techni krystal ID = [id number] for Love Orellana CBC W/PLT COUNT & AUTO [id number] 18:06:06 Test Item Value Reference Range Interpretation [...] PERCENT (BEAKER) (test code = 2801) POCT-GLUCOSE [id number] 11:39:16 Test Item Value Reference Range Interpretation Comments POC-GLUCOSE METER 106 mg/dL 70-110 : TESTED A T [facility] 6720 (BEAKER) (test code = [facility] [place], 1538) 08219: Draw Machine Operator/Techni krystal ID = [id number] for Julia Murphy LACTIC ACID, [id number] 11:34:41 Test Item Value Reference Range Interpretation Comments LACTATE BLOOD VENOUS 1.10 mmol/L 0.50-2.00 Specime n slightly (2) (BEAKER) (test hemolyzed code = 2877) Draw Machine Operator ID - EMCBC W/PLT COUNT & AUTO [id number] 11:21:12 Test Item Value Reference Range Interpretation [...] PERCENT (BEAKER) (test code = 2801) POCT-GLUCOSE [id number] 09:07:18 Test Item Value Reference Range Interpretation Comments POC-GLUCOSE METER 96 mg/dL 70-110 : TESTED A T [facility] 6720 (BEAKER) (test code = [facility] [place], 1538) 76879: Draw Machine Operator/Techni krystal ID = [id number] for Judson Johnson (CELLAVISION MANUAL DIFF)2023-08-13 08:06:09 [...] CONCENTRATION Decreased (CELLAVISION)(BEAKER) (test code = 3438) Draw Machine Operator ID - DieterOperator ID - Hannah comments: Slide comments:CBC W/PLT COUNT & AUTO [id number] 08:05:55 Test Item Value Reference Range Interpretation [...] 413) XR CHEST 1 VIEW PORTABLE / [id number] 06:52:30 [facility] ART[facility] H : 1945 Sex: MEXAMINATION: XR CHEST 1 [...] Signed By: Ligia Cunningham08/13/2023 06:54 CDTWorkstation Name: [id number] METABOLIC PANEL 2023-08-13 06:24:55 Test Item Value [...] not appl icable for dialysis patien ts Draw Machine Operator ID - [id number] 06:18:15 Test Item Value Reference Range Interpretation Comments MAGNESIUM (BEAKER) (test code = 2.1 mg/dL 1.6-2.6 627) Draw Machine Operator ID - EMLACTIC ACID, [id number] 06:05:50 Test Item Value Reference Range Interpretation Comments LACTATE BLOOD VENOUS (2) (BEAKER) 0.99 mmol/L 0.50-2.00 (test code = 2872) Draw Machine Operator ID - [id number] 06:03:29 Test Item Value Reference Range Interpretation Comments PARTIAL THROMBOPLASTIN TIME 29.0 seconds 22.5-36.0 (BEAKER) (test code = 760) PROTHROMBIN TIME/[id number] 06:02:49 Test Item Value Reference Range Interpretation Comments PROTIME (BEAKER) 17.1 seconds 11.9-14.2 H (test code = 759) INR (BEAKER) (test 1.48 See_Comment [Automat ed message] code = 370) The system [employer] generated this result transmitted ref erence range: <=5.90. The reference range was not used to int erpret this result as normal/abnormal . RECOMMENDED COUMADIN/WARFARIN INR THERAPY RANGESSTANDARD DOSE: 2.0 - 3.0 Includes: PROPHYLAXIS for venous thrombosis, systemic embolization; TREATMENT for venous thrombosis and/or pulmonary embolus.HIGH RISK: Target INR is 2.5-3.5 for patients with mechanical heart valves.POCT-GLUCOSE [id number] 01:36:17 Test Item Value Reference Range Interpretation Comments POC-GLUCOSE METER 102 mg/dL 70-110 : TESTED A T [facility] 6720 (mphoria) (test code = [facility] [employer] [facility], 1538) 88286: Draw Machine Operator/Techni krystal ID = [id number] for PA MS, SENORA POCT-GLUCOSE [id number] 22:36:53 Test Item Value Reference Range Interpretation Comments POC-GLUCOSE METER 191 mg/dL 70-110 H : TESTED A T [facility] 6720 (mphoria) (test code = [facility] [employer] [facility], 1538) 46165: Draw Machine Operator/Techni krystal ID = [id number] for Br others, Love POCT-GLUCOSE [id number] 22:36:33 Test Item Value Reference Range Interpretation Comments POC-GLUCOSE METER 70 mg/dL 70-110 : TESTED A T [facility] 6720 (mphoria) (test code = [facility], 1538) 44717: Draw Machine Operator/Techni krystal ID = [id number] for Annabelle Ackerman CBC W/PLT COUNT & AUTO [id number] 18:35:18 Test Item Value Reference Range Interpretation [...] (BEAKER) (test code = 2801) LACTIC ACID, [id number] 18:19:48 Test Item Value Reference Range Interpretation Comments LACTATE BLOOD VENOUS (2) (BEAKER) 2.92 mmol/L 0.50-2.00 H (test code = 2872) Draw Machine Operator ID - MMCTA AAA AND [id number] 16:00:54 [facility] : 1945 Sex: MEXAM: CTAABDOMEN AND PELVIS WITH CONTRASTEXAM: CTA LOWER EXTREMITIES WITH CONTRASTDATE: 08/12/2023 11:40 AM INDICATION: 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 A xial,coronal and sagittal images, including MIPS, are provided.FINDINGS:Bleach Machine Operator: Noncontributory.VASCULAR:Aorta: No aneurysm, dissection, penetrating ulcer, or ruptureidentified. No evidence of aortoenteric fistula. Measurements are as follows:Descending aorta at the hiatus: 3.1 cmAbdominal aorta at thelevel of the renal arteries: 2.3 cmAbdominal aorta prior to the bifurcation: 2.2 cmAbdominal arterial anatomy:Celiac artery, SMA and SID: Patent.Hepatic arteries: Conventional.Renal arteries: PatentRight run-off:Common iliac artery: Interval resolution of previously noted aneurysm.The washoe right common iliac artery is completely excluded [...] Signed By: Selwyn Morelos08/12/2023 16:02 CDTWorkstation Name: [id number] ABDOMEN/KUB 1 VIEW [id number] 14:36:02 [facility] : 1945 Sex: MAbdomen x- [...] By: Paulino Peters MD08/12/2023 14:38 CDTWorkstation Name: [id number] 13:53:32 Test Item Value Reference Range Interpretation Comments FIBRINOGEN LEVEL (BEAKER) (test 183 mg/dl 225-434 L code = 658) POCT-GLUCOSE [id number] 13:02:50 Test Item Value Reference Range Interpretation Comments POC-GLUCOSE METER 124 mg/dL 70-110 H : TESTED A T [facility] 6720 (BEAKER) (test code = [facility] [place], 1538) 56582: Draw Machine Operator/Techni krystal ID = [id number] for Br others, Love URINALYSIS W/ REFLEX URINE [id number] 12:54:06 Test Item Value Reference Range Interpretation [...] code = 514) SOURCE(BEAKER) (test code = 6328) Draw Machine Operator ID - [auto]Draw Machine Operator ID - techLACTIC ACID, [id number] 09:47:00 Test Item Value Reference Range Interpretation Comments LACTATE BLOOD VENOUS 2.45 mmol/L 0.50-2.00 H Specime n moderately (2) (BEAKER) (test hemolyzed code = 5009) Draw Machine Operator ID - MARCOCBC W/PLT COUNT & AUTO [id number] 09:44:19 Test Item Value Reference Range Interpretation [...] (BEAKER) (test code = 2801) BLOOD GAS, [id number] 09:39:37 Test Item Value Reference Range Interpretation [...] (test code = 1819) 21.0 COMPREHENSIVE METABOLIC [id number] 02:11:51 Test Item Value Reference Range Interpretation [...] not appl icable for dialysis patien ts Draw Machine Operator ID - [id number] 02:09:33 Test Item Value Reference Range Interpretation Comments PARTIAL THROMBOPLASTIN TIME 30.9 seconds 22.5-36.0 (BEAKER) (test code = 760) PROTHROMBIN TIME/[id number] 02:08:48 Test Item Value Reference Range Interpretation Comments PROTIME (BEAKER) 16.5 seconds 11.9-14.2 H (test code = 759) INR (BEAKER) (test 1.42 See_Comment [Automat ed message] code = 370) The system [employer] generated this result transmitted ref erence range: <=5.90. The reference range was not used to int erpret this result as normal/abnormal . RECOMMENDED COUMADIN/WARFARIN INR THERAPY RANGESSTANDARD DOSE: 2.0 - 3.0 Includes: PROPHYLAXIS for venous thrombosis, systemic embolization; TREATMENT for venous thrombosis and/or pulmonary embolus.HIGH RISK: Target INR is 2.5-3.5 for patients with mechanical heart valves.LACTIC ACID, [id number] 02:07:31 Test Item Value Reference Range Interpretation Comments LACTATE BLOOD VENOUS (2) (BEAKER) 0.84 mmol/L 0.50-2.00 (test code = 2872) Draw Machine Operator ID - ADMINCBC W/PLT COUNT & AUTO [id number] 02:03:55 Test Item Value Reference Range Interpretation [...] PERCENT (BEAKER) (test code = 2801) POC-Glucose [id number] 13:13:05 Test Item Value Reference Range Interpretation Comments POC-Glucose Meter (test 127 mg/dL 70-110 H : TE STED AT [facility] code = 1538) [address] [place] [address], [facility] 30: Draw Machine Operator/Techni krystal ID = [id number] for NICKULUCIOOM A Lab Interpretation (test Abnormal code = 71453-7) [facility] [id number] 13:13:05 Test Item Value Reference Range Interpretation Comments POC-Glucose Meter (test 127 mg/dL 70-110 H : TE STED AT [facility] code = 1538) [address] [place] [address], [facility] 30: Draw Machine Operator/Techni krystal ID = [id number] for NWACHICHIAKU, CHIOM A Lab Interpretation (test Abnormal code = 50551-0) [facility] [id number] 13:13:05 Test Item Value Reference Range Interpretation Comments POC-Glucose Meter (test 127 mg/dL 70-110 H : TE STED AT [facility] code = 1538) [address] [place] [address], [facility] 30: Draw Machine Operator/Techni krystal ID = [id number] for NWACHICHIAKU, CHIOM A Lab Interpretation (test Abnormal code = 51376-1) [facility] [id number] 13:13:05 Test Item Value Reference Range Interpretation Comments POC-GLUCOSE METER 127 mg/dL 70-110 H : TESTED A T [facility] 6720 (BEAKER) (test code = [facility], 1538) 28598: Draw Machine Operator/Techni krystal ID = [id number] for NW AJIAKU, EVELIA POCT-GLUCOSE [id number] 08:33:19 Test Item Value Reference Range Interpretation Comments POC-GLUCOSE METER 134 mg/dL 70-110 H : TESTED A T [facility] 6720 (BEAKER) (test code = [facility], 1538) 13446: Draw Machine Operator/Techni krystal ID = [id number] for NW AJIAKU, EVELIA (CELLAVISION MANUAL DIFF)2023-07-23 07:06:44 Test Item [...] CONCENTRATION Adequate (CELLAVISION)(BEAKER) (test code = 3438) Draw Machine Operator ID - Christy Carrillo comments: Slide comments:CBC W/PLT COUNT & AUTO [id number] 07:06:43 Test Item Value Reference Range Interpretation [...] WBC 0-0 (BEAKER) (test code = 413) [id number] 06:14:48 Test Item Value Reference Range Interpretation Comments PHOSPHORUS (BEAKER) (test code = 2.9 mg/dL 2.3-4.7 604) Draw Machine Operator ID - ADMINBASIC METABOLIC [id number] 06:14:47 Test Item Value Reference Range Interpretation [...] not appl icable for dialysis patien ts Draw Machine Operator ID - [id number] 06:14:47 Test Item Value Reference Range Interpretation Comments MAGNESIUM (BEAKER) (test code = 2.0 mg/dL 1.6-2.6 627) Draw Machine Operator ID - ADMINPOCT-GLUCOSE [id number] 21:11:07 Test Item Value Reference Range Interpretation Comments POC-GLUCOSE METER 189 mg/dL 70-110 H : TESTED A T [facility] 6720 (BEAKER) (test code = [facility], 1538) 21309: Draw Machine Operator/Techni krystal ID = [id number] for MCKAYLA SANTOS POCT-GLUCOSE [id number] 16:53:06 Test Item Value Reference Range Interpretation Comments POC-GLUCOSE METER 133 mg/dL 70-110 H : [facility] A T [facility] 6720 [facility] (test code = [facility], 1538) 78263: Draw Machine Operator/Techni krystal ID = [id number] for [place] LLIAMS, TYNEKA POCT-GLUCOSE [id number] 13:01:10 Test Item Value Reference Range Interpretation Comments POC-GLUCOSE METER 138 mg/dL 70-110 H : TESTED A T [facility] 6720 (BEAKER) (test code = [facility], 1538) 81574: Draw Machine Operator/Techni krystal ID = [id number] for [place] LLIAMS, TYNEKA XR ABDOMEN/KUB 1 VIEW [id number] 10:03:55 [facility] : 1945 Sex: MEXAMINATION: XR [...] Signed By: Ligia Cunningham07/22/2023 10:05 CDTWorkstation Name: [id number] 07:26:43 Test Item Value Reference Range Interpretation Comments POC-GLUCOSE METER 124 mg/dL 70-110 H : TESTED A T [facility] 6720 (BEAKER) (test code = [facility] [place], 1538) 17827: Draw Machine Operator/Techni krystal ID = [id number] for DERRICK COFFMAN (CELLAVISION MANUAL DIFF)2023-07-22 05:58:39 [...] CONCENTRATION Adequate (CELLAVISION)(BEAKER) (test code = 3438) Draw Machine Operator ID - Devorah Rodriguez comments: Slide comments:CBC W/PLT COUNT & AUTO [id number] 05:58:38 Test Item Value Reference Range Interpretation [...] (BEAKER) (test code = 413) BASIC METABOLIC [id number] 05:38:58 Test Item Value Reference Range Interpretation [...] not appl icable for dialysis patien ts Draw Machine Operator ID - [id number] 05:38:58 Test Item Value Reference Range Interpretation Comments MAGNESIUM (BEAKER) (test code = 1.9 mg/dL 1.6-2.6 627) Draw Machine Operator ID - [id number] 05:38:58 Test Item Value Reference Range Interpretation Comments PHOSPHORUS (BEAKER) (test code = 3.0 mg/dL 2.3-4.7 604) Draw Machine Operator ID - ADMINPOCT-GLUCOSE [id number] 21:03:38 Test Item Value Reference Range Interpretation Comments POC-GLUCOSE METER 180 mg/dL 70-110 H : TESTED A T [facility] 6720 (BEAKER) (test code = [facility], 1538) 10968: Draw Machine Operator/Techni krystal ID = [id number] for Divina Martin POCT-GLUCOSE [id number] 17:11:12 Test Item Value Reference Range Interpretation Comments POC-GLUCOSE METER 154 mg/dL 70-110 H : TESTED A T [facility] 6720 (BEAKER) (test code = [facility], 1538) 25015: Draw Machine Operator/Techni krystal ID = [id number] for Kamla Manzano POCT-GLUCOSE [id number] 11:12:22 Test Item Value Reference Range Interpretation Comments POC-GLUCOSE METER 197 mg/dL 70-110 H : TESTED A T [facility] 6720 (BEAKER) (test code = [facility], 1538) 04770: Draw Machine Operator/Techni krystal ID = [id number] for Kamla Manzano POCT-GLUCOSE [id number] 09:06:28 Test Item Value Reference Range Interpretation Comments POC-GLUCOSE METER 128 mg/dL 70-110 H : TESTED A T [facility] 6720 (BEAKER) (test code = [facility], 1538) 11983: Draw Machine Operator/Techni krystal ID = [id number] for Kamla Manzano (CELLAVISION MANUAL DIFF)2023-07-21 05:40:55 [...] CONCENTRATION Adequate (CELLAVISION)(BEAKER) (test code = 3438) Draw Machine Operator ID - Devorah Rodriguez comments: Slide comments:CBC W/PLT COUNT & AUTO [id number] 05:40:54 Test Item Value Reference Range Interpretation [...] (BEAKER) (test code = 413) BASIC METABOLIC [id number] 05:39:10 Test Item Value Reference Range Interpretation [...] not appl icable for dialysis patien ts Draw Machine Operator ID - [id number] 05:39:10 Test Item Value Reference Range Interpretation Comments MAGNESIUM (BEAKER) (test code = 2.0 mg/dL 1.6-2.6 627) Draw Machine Operator ID - [id number] 05:39:10 Test Item Value Reference Range Interpretation Comments PHOSPHORUS (BEAKER) (test code = 3.0 mg/dL 2.3-4.7 604) Draw Machine Operator ID - LINDAOPOCT-GLUCOSE [id number] 21:52:31 Test Item Value Reference Range Interpretation Comments POC-GLUCOSE METER 159 mg/dL 70-110 H : TESTED A T [facility] 6720 (BEAKER) (test code = [facility], 1538) 58971: Draw Machine Operator/Techni krystal ID = [id number] for Divina Martin POCT-GLUCOSE [id number] 18:13:00 Test Item Value Reference Range Interpretation Comments POC-GLUCOSE METER 134 mg/dL 70-110 H : TESTED A T [facility] 6720 (BEAKER) (test code = [facility], 1538) 37888: Draw Machine Operator/Techni krystal ID = [id number] for Torri Mack HEMOGLOBIN [id number] 11:18:47 Test Item Value Reference Range Interpretation [...] 5.7- 6.4% indicates increased risk for diabetes (prediabetes)."Draw Machine Operator ID - ADM (CELLAVISION MANUAL DIFF)2023-07-20 06:20:08 [...] CONCENTRATION Adequate (CELLAVISION)(BEAKER) (test code = 3438) Draw Machine Operator ID - Hannah comments: Slide comments:CBC W/PLT COUNT & AUTO [id number] 06:20:07 Test Item Value Reference Range Interpretation [...] WBC 0-0 (BEAKER) (test code = 413) [id number] 05:57:30 Test Item Value Reference Range Interpretation Comments PHOSPHORUS (BEAKER) (test code = 2.7 mg/dL 2.3-4.7 604) Draw Machine Operator ID - ADMINBASIC METABOLIC [id number] 05:57:29 Test Item Value Reference Range Interpretation [...] not appl icable for dialysis patien ts Draw Machine Operator ID - [id number] 05:57:29 Test Item Value Reference Range Interpretation Comments MAGNESIUM (BEAKER) (test code = 2.0 mg/dL 1.6-2.6 627) Draw Machine Operator ID - ADMINHEMOGLOBIN AND [id number] 18:25:24 Test Item Value Reference Range Interpretation Comments HEMOGLOBIN (BEAKER) (test code = 8.9 GM/DL 13.7-17.5 L 410) HEMATOCRIT (BEAKER) (test code = 26.6 % 40.1-51.0 L 411) Draw Machine Operator ID - 6000POCT-GLUCOSE [id number] 16:50:31 Test Item Value Reference Range Interpretation Comments POC-GLUCOSE METER 160 mg/dL 70-110 H : TESTED A T [facility] 6720 (BEAKER) (test code = [facility] [place], 1538) 38581: Draw Machine Operator/Techni krystal ID = [id number] for NW EVELIA CRAWFORD (CELLAVISION MANUAL DIFF)2023 [...] CONCENTRATION Adequate (CELLAVISION)(BEAKER) (test code = 3438) Draw Machine Operator ID - Devorah Rodriguez comments: Slide comments:CBC W/PLT COUNT & AUTO [id number] 05:24:49 Test Item Value Reference Range Interpretation [...] 0-0 (BEAKER) (test code = 413) POCT-GLUCOSE [id number] 05:02:41 Test Item Value Reference Range Interpretation Comments POC-GLUCOSE METER 131 mg/dL 70-110 H : TESTED A T [facility] 6720 (BEAKER) (test code = [facility] [place], 1538) 77890: Draw Machine Operator/Techni krystal ID = [id number] for ROBERT DALAL [id number] 04:18:57 Test Item Value Reference Range Interpretation Comments MAGNESIUM (BEAKER) (test code = 2.1 mg/dL 1.6-2.6 627) Draw Machine Operator ID - [id number] 04:18:57 Test Item Value Reference Range Interpretation Comments PHOSPHORUS (BEAKER) (test code = 1.9 mg/dL 2.3-4.7 L 604) Draw Machine Operator ID - mmBASIC METABOLIC [id number] 04:18:56 Test Item Value Reference Range Interpretation [...] not appl icable for dialysis patien ts Draw Machine Operator ID - mmPOCT-GLUCOSE [id number] 21:21:42 Test Item Value Reference Range Interpretation Comments POC-GLUCOSE METER 183 mg/dL 70-110 H : [facility] (BEAKER) (test code = [facility] [place], 1538) [address]: Draw Machine Operator/Techni krystal ID = [id number] for DAE DAEGabriel BRICELUCIO POCT-GLUCOSE [id number] 16:53:13 Test Item Value Reference Range Interpretation Comments POC-GLUCOSE METER 134 mg/dL 70-110 H : [facility] 6720 (BEAKER) (test code = [facility], 153) 17015: Draw Machine Operator/Techni krystal ID = [id number] for Leila Gamboa POCT-GLUCOSE [id number] 11:18:08 Test Item Value Reference Range Interpretation Comments POC-GLUCOSE METER 175 mg/dL 70-110 H : TESTED A T [facility] 6720 (BEAKER) (test code = [facility], 1538) 74870: Draw Machine Operator/Techni krystal ID = [id number] for Bu iKeysha POCT-GLUCOSE [id number] 08:29:56 Test Item Value Reference Range Interpretation Comments POC-GLUCOSE METER 199 mg/dL 70-110 H : TESTED A T [facility] 6720 (BEAKER) (test code = [facility], 1538) 72407: Draw Machine Operator/Techni krystal ID = [id number] for Bu iNellieKeysha (CELLAVISION MANUAL DIFF)2023-07-18 05:04:38 [...] CONCENTRATION Adequate (CELLAVISION)(BEAKER) (test code = 3438) Draw Machine Operator ID - Hannah comments: Slide comments:CBC W/PLT COUNT & AUTO [id number] 05:04:37 Test Item Value Reference Range Interpretation [...] (BEAKER) (test code = 413) BASIC METABOLIC [id number] 03:15:19 Test Item Value Reference Range Interpretation [...] not appl icable for dialysis patien ts Draw Machine Operator ID - [id number] 03:15:19 Test Item Value Reference Range Interpretation Comments MAGNESIUM (BEAKER) (test code = 2.0 mg/dL 1.6-2.6 627) Draw Machine Operator ID - JBASLAKSQBOBCNQ2749-61-02 03:15:19 Test Item Value Reference Range Interpretation Comments PHOSPHORUS (BEAKER) (test code = 1.8 mg/dL 2.3-4.7 L 604) Draw Machine Operator ID - ADMINPOCT-GLUCOSE [id number] 21:10:21 Test Item Value Reference Range Interpretation Comments POC-GLUCOSE METER 122 mg/dL 70-110 H : TESTED A T [facility] 6720 (BEAKER) (test code = [facility] [place], 1538) [address]: Draw Machine Operator/Techni krystal ID = [id number] for Sp Giancarlo hankins [id number] 17:12:05 Test Item Value Reference Range Interpretation Comments PREALBUMIN (BEAKER) (test code = 20 mg/dL 14-45 586) Draw Machine Operator ID - BSPOCT-GLUCOSE [id number] 16:44:07 Test Item Value Reference Range Interpretation Comments POC-GLUCOSE METER 160 mg/dL 70-110 H : TESTED A T [facility] 6720 ([facility]) (test code = [facility], 1538) 36110: Draw Machine Operator/Techni krystal ID = [id number] for SUNNY SANCHEZ [id number] 13:39:33 Test Item Value Reference Range Interpretation Comments ALBUMIN (BEAKER) 3.3 g/dL 3.5-5.0 L Specimen mo derately (test code = 1145) hemolyzed Draw Machine Operator ID - EMPOCT-GLUCOSE [id number] 12:15:06 Test Item Value Reference Range Interpretation Comments POC-GLUCOSE METER 147 mg/dL 70-110 H : TESTED A T [facility] 6720 ([facility]) (test code = [facility], 1538) 22027: Draw Machine Operator/Techni krystal ID = [id number] for SUNNY SANCHEZ POC ACTIVATED CLOTTING [id number] 06:34:26 Test Item Value Reference Range Interpretation Comments Activated Clotting Time 131 sec : 74 -137 seconds, (test code = 3184-9) Baselin e: TESTED AT [address], 770 30: Draw Machine Operator/Techni krystal ID = [id number] for GA TOBY, KATINA [facility] ACTIVATED CLOTTING [id number] 06:34:26 Test Item Value Reference Range Interpretation Comments Activated Clotting Time 131 sec : 74 -137 seconds, (test code = 3184-9) Baselin e: TESTED AT [address], 770 30: Draw Machine Operator/Techni krystal ID = [id number] for GA TOBY, KATINA [facility] ACTIVATED CLOTTING [id number] 06:34:26 Test Item Value Reference Range Interpretation Comments Activated Clotting Time 131 sec : 74 -137 seconds, (test code = 3184-9) Baselin e: TESTED AT [address], 770 30: Draw Machine Operator/Techni krystal ID = [id number] for GA TOBY, KATINA [id number] 06:34:26 Test Item Value Reference Range Interpretation Comments ACTIVATED CLOTTING TIME 131 sec : 74 -137 seconds, (BEAKER) (test code = Baseli ne: TESTED AT 441) [address], [facility] 30: Draw Machine Operator/Techni krystal ID = [id number] for KATINA CELESTE [id number] 06:34:02 Test Item Value Reference Range Interpretation Comments ACTIVATED CLOTTING TIME 377 sec : 74 -137 seconds, (BEAKER) (test code = Baseli ne: TESTED AT 441) [address], [facility] 30: Draw Machine Operator/Techni krystal ID = [id number] for KATINA CELESTE [id number] 06:34:00 Test Item Value Reference Range Interpretation Comments ACTIVATED CLOTTING TIME 245 sec : 74 -137 seconds, (BEAKER) (test code = Baseli ne: TESTED AT 441) [address], [facility] 30: Draw Machine Operator/Techni krystal ID = [id number] for ANGELLA LUIS KATINA [id number] 06:34:00 Test Item Value Reference Range Interpretation Comments ACTIVATED CLOTTING TIME 269 sec : 74 -137 seconds, (BEAKER) (test code = Baseli ne: TESTED AT 441) [address], [facility] 30: Draw Machine Operator/Techni krystal ID = [id number] for Angella Laura dent (CELLAVISION MANUAL DIFF)2023-07-17 06:20:52 Test [...] K/ul 1.32-3.57 L (CELLAVISION)(BEAKER) (test code = 283) MONOCYTES - ABS 2.04 K/uL 0.30-0.82 H [...] CONCENTRATION Adequate (CELLAVISION)(BEAKER) (test code = 3438) Draw Machine Operator ID - Hannah comments: Slide comments:CBC W/PLT COUNT & AUTO [id number] 06:20:51 Test Item Value Reference Range Interpretation [...] WBC 0-0 (BEAKER) (test code = 413) [id number] 05:27:41 Test Item Value Reference Range Interpretation Comments MAGNESIUM (BEAKER) (test code = 2.0 mg/dL 1.6-2.6 627) Draw Machine Operator ID - [id number] 05:27:41 Test Item Value Reference Range Interpretation Comments PHOSPHORUS (BEAKER) (test code = 4.3 mg/dL 2.3-4.7 604) Draw Machine Operator ID - EMBASIC METABOLIC [id number] 05:27:40 Test Item Value Reference Range Interpretation [...] not appl icable for dialysis patien ts Draw Machine Operator ID - EM(CELLAVISION MANUAL DIFF)2023-07-17 01:11:07 Test [...] CONCENTRATION Adequate (CELLAVISION)(BEAKER) (test code = 3438) Draw Machine Operator ID - Nato Manzo comments: Slide comments:CBC W/PLT COUNT & AUTO [id number] 01:11:06 Test Item Value Reference Range Interpretation [...] 0-0 (BEAKER) (test code = 413) Prepare [id number] 00:43:00 Test Item Value Reference Range Interpretation Comments CROSSMATCH (test code = COMPATIBLE 2264) Unit ABO (test code = O Pos 6892375) UNIT NUMBER (test code = [id number] 934-0) Status (test code = RETURNED FROM ISSUE 1206726) Blood Bank Product (test RED BLOOD CELLS code = 2263) PRODUCT CODE (test code = [id number] 933-2) [facility] [id number] 00:43:00 Test Item Value Reference Range Interpretation Comments CROSSMATCH (test code = COMPATIBLE 4) Unit ABO (test code = O Pos 5805020) UNIT NUMBER (test code = [id number] 934-0) Status (test code = RETURNED FROM ISSUE 15110203) Blood Bank Product (test RED BLOOD CELLS code = 2263) PRODUCT CODE (test code = [id number] 933-2) [facility] [id number] 00:43:00 Test Item Value Reference Range Interpretation Comments CROSSMATCH (test code = COMPATIBLE 4) Unit ABO (test code = O Pos 3698105) UNIT NUMBER (test code = [id number] 934-0) Status (test code = RETURNED FROM ISSUE 3693429) Blood Bank Product (test RED BLOOD CELLS code = 2263) PRODUCT CODE (test code = [id number] 933-2) [facility] [id number] 00:32:53 Test Item Value Reference Range Interpretation [...] not appl icable for dialysis patien ts Draw Machine Operator ID - [id number] 00:29:21 Test Item Value Reference Range Interpretation Comments PHOSPHORUS (BEAKER) (test code = 4.4 mg/dL 2.3-4.7 604) Draw Machine Operator ID - [id number] 00:29:20 Test Item Value Reference Range Interpretation Comments MAGNESIUM (BEAKER) (test code = 2.0 mg/dL 1.6-2.6 627) Draw Machine Operator ID - ADMINPOCT-GLUCOSE [id number] 00:04:16 Test Item Value Reference Range Interpretation Comments POC-GLUCOSE METER 173 mg/dL 70-110 H : TESTED A T [facility] 6720 (BEAKER) (test code = [facility], 1538) 72067: Draw Machine Operator/Techni krystal ID = [id number] for NO NIKA DOWNS CALCIUM, [id number] 23:02:35 Test Item Value Reference Range Interpretation Comments CALCIUM IONIZED (BEAKER) (test 1.06 mmol/L 1.12-1.27 L code = 698) PH, BLOOD (BEAKER) (test code = 7.35 1810) CALCIUM, [id number] 19:18:38 Test Item Value Reference Range Interpretation Comments CALCIUM IONIZED (BEAKER) (test 0.94 mmol/L 1.12-1.27 L code = 698) PH, BLOOD (BEAKER) (test code = 7.38 1810) Blood gas, [id number] 19:18:37 Test Item Value Reference Range Interpretation Comments pH, Arterial (test code 7.40 7.35-7.45 = 2744-1) pCO2, Arterial (test 44 See_Comment [Autom ated message] code = 2019) The system [facility] generated this result transmit gonsalo reference range : 35 - 45 mm Hg. The reference range was not used to interpret this result as normal/abnormal . pO2, Arterial (test 229 See_Comment H [Automa gonsalo message] code = 2703-7) The system [facility] generated this result transmit gonsalo reference [...] 50.0 Lab Interpretation Abnormal (test code = 23194-0) [facility] [id number] 19:18:37 Test Item Value Reference Range Interpretation Comments Hemoglobin (test code = 10.5 See_Comment L [Au tomated message] 862-7) The system [facility] generated this result transmitted ref erence range: 13.0 - 1 6.8 GM/DL. The refe rence range was not u sed to interpret this result as normal/abnor mal. Hematocrit (test code = 31.0 % 40.0-50.0 L 4544-3) Lab Interpretation (test Abnormal code = 40743-4) [facility], [id number] 19:18:37 Test Item Value Reference Range Interpretation Comments pH, Arterial (test code 7.40 7.35-7.45 = 2744-1) pCO2, Arterial (test 44 See_Comment [Autom ated message] code = 2019-06) The system [facility] generated this result transmit gonsalo reference range : 35 - 45 mm Hg. The reference range was not used to interpret this result as normal/abnormal . pO2, Arterial (test 229 See_Comment H [Automa gonsalo message] code = 2703-7) The system [facility] generated this result transmit ognsalo reference range : 80 - 90 mm [...] 50.0 Lab Interpretation Abnormal (test code = 56179-5) [facility]Stat [id number] 19:18:37 Test Item Value Reference Range Interpretation Comments Hemoglobin (test code = 10.5 See_Comment L [Au tomated message] 718-7) The system [facility] generated this result transmitted ref erence range: 13.0 - 1 6.8 GM/DL. The refe rence range was not u sed to interpret this result as normal/abnor mal. Hematocrit (test code = 31.0 % 40.0-50.0 L 4544-3) Lab Interpretation (test Abnormal code = 21447-8) [facility], [id number] 19:18:37 Test Item Value Reference Range Interpretation Comments pH, Arterial (test code 7.40 7.35-7.45 = 2744-1) pCO2, Arterial (test 44 See_Comment [Autom ated message] code = 2019-8) The system [facility] generated this result transmit gonsalo reference range : 35 - 45 mm Hg. The reference range was not used to interpret this result as normal/abnormal . pO2, Arterial (test 229 See_Comment H [Automa gonsalo message] code = 2703-7) The system [facility] generated this result transmit gonsalo reference [...] 50.0 Lab Interpretation Abnormal (test code = 21067-3) [facility]Stat [id number] 19:18:37 Test Item Value Reference Range Interpretation Comments Hemoglobin (test code = 10.5 See_Comment L [Au tomated message] 718-7) The system [employer] generated this result transmitted ref erence range: 13.0 - 1 6.8 GM/DL. The refe rence range was not u sed to interpret this result as normal/abnor mal. Hematocrit (test code = 31.0 % 40.0-50.0 L 4544-3) Lab Interpretation (test Abnormal code = 99314-4) [facility], [id number] 19:18:37 Test Item Value Reference Range Interpretation [...] = 1819) 50.0 HGB/HCT (H&H) - STAT [id number] 19:18:37 Test Item Value Reference Range Interpretation Comments HEMOGLOBIN (BEAKER) (test code = 10.5 GM/DL 13.0-16.8 L 410) HEMATOCRIT (BEAKER) (test code = 31.0 % 40.0-50.0 L 411) Potassium-Stat [id number] 19:18:06 Test Item Value Reference Range Interpretation Comments Potassium (test code = 2823-3) 3.6 meq/L 3.6-5.5 Lab Interpretation (test code = Normal 41157-2) [facility] [id number] 19:18:06 Test Item Value Reference Range Interpretation Comments Potassium (test code = 2823-3) 3.6 meq/L 3.6-5.5 Lab Interpretation (test code = Normal 61477-2) [facility]Stat [id number] 19:18:06 Test Item Value Reference Range Interpretation Comments Potassium (test code = 2823-3) 3.6 meq/L 3.6-5.5 Lab Interpretation (test code = Normal 11174-9) [facility]OT[facility]UM-[facility] [id number] 19:18:06 Test Item Value Reference Range Interpretation Comments POTASSIUM (BEAKER) (test code = 3.6 meq/L 3.6-5.5 379) Glucose-Stat [id number] 19:18:05 Test Item Value Reference Range Interpretation Comments Glucose (test code = 2345-7) 133 mg/dL 70-110 H Lab Interpretation (test code = Abnormal 71670-5) [facility] [id number] 19:18:05 Test Item Value Reference Range Interpretation Comments Sodium (test code = 2951-2) 138 meq/L 136-145 Lab Interpretation (test code = Normal 84519-4) [facility] [id number] 19:18:05 Test Item Value Reference Range Interpretation Comments Glucose (test code = 2345-7) 133 mg/dL 70-110 H Lab Interpretation (test code = Abnormal 32937-9) [facility] [id number] 19:18:05 Test Item Value Reference Range Interpretation Comments Sodium (test code = 2951-2) 138 meq/L 136-145 Lab Interpretation (test code = Normal 57577-9) [facility] [id number] 19:18:05 Test Item Value Reference Range Interpretation Comments Glucose (test code = 2345-7) 133 mg/dL 70-110 H Lab Interpretation (test code = Abnormal 42825-0) [facility]Stat [id number] 19:18:05 Test Item Value Reference Range Interpretation Comments Sodium (test code = 2951-2) 138 meq/L 136-145 Lab Interpretation (test code = Normal 18951-4) [facility] [id number] 19:18:05 Test Item Value Reference Range Interpretation Comments GLUCOSE RANDOM (BEAKER) (test code 133 mg/dL 70-110 H = 652) SODIUM NA-STAT [id number] 19:18:05 Test Item Value Reference Range Interpretation Comments SODIUM (BEAKER) (test code = 381) 138 meq/L 136-145 CALCIUM, [id number] 18:22:48 Test Item Value Reference Range Interpretation Comments CALCIUM IONIZED (BEAKER) (test 0.97 mmol/L 1.12-1.27 L code = 698) PH, BLOOD (BEAKER) (test code = 7.28 1810) BLOOD GAS, [id number] 18:22:46 Test Item Value Reference Range Interpretation [...] = 1819) 50.0 HGB/HCT (H&H) - STAT [id number] 18:22:46 Test Item Value Reference Range Interpretation Comments HEMOGLOBIN (BEAKER) (test code = 11.7 GM/DL 13.0-16.8 L 410) HEMATOCRIT (BEAKER) (test code = 34.0 % 40.0-50.0 L 411) POTASSIUM-STAT [id number] 18:22:33 Test Item Value Reference Range Interpretation Comments POTASSIUM (BEAKER) (test code = 3.8 meq/L 3.6-5.5 379) GLUCOSE-STAT [id number] 18:22:32 Test Item Value Reference Range Interpretation Comments GLUCOSE RANDOM (BEAKER) (test code 126 mg/dL 70-110 H = 652) SODIUM NA-STAT [id number] 18:22:32 Test Item Value Reference Range Interpretation Comments SODIUM (BEAKER) (test code = 381) 135 meq/L 136-145 L BLOOD GAS, [id number] 17:09:48 Test Item Value Reference Range Interpretation [...] (BEAKER) (test code = 1819) 75.0 CALCIUM, [id number] 17:09:20 Test Item Value Reference Range Interpretation Comments CALCIUM IONIZED (BEAKER) (test 1.13 mmol/L 1.12-1.27 code = 698) PH, BLOOD (BEAKER) (test code = 7.36 1810) HGB/HCT (H&H) - STAT [id number] 17:09:03 Test Item Value Reference Range Interpretation Comments HEMOGLOBIN (BEAKER) (test code = 14.7 GM/DL 13.0-16.8 410) HEMATOCRIT (BEAKER) (test code = 43.0 % 40.0-50.0 411) GLUCOSE-STAT [id number] 17:09:02 Test Item Value Reference Range Interpretation Comments GLUCOSE RANDOM (BEAKER) (test code 108 mg/dL 70-110 = 652) SODIUM NA-STAT [id number] 17:09:01 Test Item Value Reference Range Interpretation Comments SODIUM (BEAKER) (test code = 381) 137 meq/L 136-145 POTASSIUM-STAT [id number] 17:09:01 Test Item Value Reference Range Interpretation Comments POTASSIUM (BEAKER) (test code = 3.8 meq/L 3.6-5.5 379) BASIC METABOLIC [id number] 05:29:58 Test Item Value Reference Range Interpretation [...] not appl icable for dialysis patien ts Draw Machine Operator ID - MARY WPROTHROMBIN TIME/[id number] 05:21:53 Test Item Value Reference Range Interpretation Comments PROTIME (BEAKER) 14.0 seconds 11.9-14.2 (test code = 759) INR (BEAKER) (test 1.10 See_Comment [Automat ed message] code = 370) The system [employer] generated this result transmitted ref erence range: [...] 0-0 (BEAKER) (test code = 413) BLOOD [id number] 10:00:34 Test Item Value Reference Range Interpretation Comments CULTURE (BEAKER) (test No growth in 5 days code = 1095) BLOOD [id number] 07:00:11 Test Item Value Reference Range Interpretation Comments CULTURE (BEAKER) (test No growth in 5 days code = 1095) BASIC METABOLIC [id number] 07:27:27 Test Item Value Reference Range Interpretation [...] not appl icable for dialysis patien ts Draw Machine Operator ID - MARY WCBC (HEMOGRAM ONLY)2023-07-13 06:54:37 [...] WBC 0-0 (BEAKER) (test code = 413) [id number] 06:52:14 Test Item Value Reference Range Interpretation Comments PROSTATE SPECIFIC ANTIGEN (BEAKER) 0.9 ng/mL 0.0-4.0 (test code = 844) Draw Machine Operator ID - ADMINBASIC METABOLIC [id number] 06:26:08 Test Item Value Reference Range Interpretation [...] not appl icable for dialysis patien ts Draw Machine Operator ID - MARCOCBC (HEMOGRAM ONLY)2023-07-12 06:03:59 Test [...] (BEAKER) (test code = 413) BASIC METABOLIC [id number] 06:17:28 Test Item Value Reference Range Interpretation [...] not appl icable for dialysis patien ts Draw Machine Operator ID - [id number] 06:17:28 Test Item Value Reference Range Interpretation Comments MAGNESIUM (BEAKER) (test code = 2.0 mg/dL 1.6-2.6 627) Draw Machine Operator ID - [id number] 06:17:28 Test Item Value Reference Range Interpretation Comments PHOSPHORUS (BEAKER) (test code = 2.1 mg/dL 2.3-4.7 L 604) Draw Machine Operator ID - ADMINCBC (HEMOGRAM ONLY)2023-07-11 05:59:41 Test [...] (test code = 413) CTA AAA AND [id number] 22:32:09 [facility] CENTERName: JAMEE MORRIS : 1945 Sex: MEXAM: [...] fills with contrast. 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 No occlusion orsignificant stenosis.Lung bases: Unremarkable. No mass. No consolidation.ABDOMEN:Liver: Unremarkable. No mass.Gallbladder and bile ducts: Unremarkable. No calcified stones. Noductal dilation.Pancreas: Unremarkable. No ductal dilation. No mass.Spleen: Unremarkable. No splenomegal y.Adrenals: Unremarkable. No mass.Kidneys and ureters: Unremarkable. No hydronephrosis. No solid mass.Stomach and bowel: There is diverticulosis of the left and sigmoidcolon without evidence of diverticulitis. 6.4 cm of stool in the rectumcould [...] Diffuse atherosclerotic disease with other areas of mpdr-nw-mozbhdqbrhfhiaeqt described above.Electronically Signed By: Luis Manuel Hernandez07/10/2023 22:34 CDTWorkstation Name: [id number]-KzE4/RT-PCR (Asymptomatic ONLY)2023-07-10 18:35:27 Test Item Value Reference Interpretation Comments Range SARS-COV2/RT-PCR Negative Negative The SARS-Co V-2 (test code = target nucleic 33542-1) acids are not detected in thi s [...] S ARS CoV-2 test is a rapid, real-marva e RT-PCR test intended for th e [...] revoked sooner. Fact Sheet for Healthcare Providers: https://www.[employer]/Documents/Xp ert%20Xpress%20SAR S%20CoV-2/Fact%20S heets/302-3802%20S ARS-COV-2%20HEALTH CARE%20PROVIDERS%2 0FACT%20SHEET.pdf Fact Sheet for Healthcare Patients: https://www.[employer]/Documents/Xp ert%20Xpress%20SAR S%20CoV-2/Fact%20S heets/302-3801%20S ARS-COV-2%20PATIEN T%20FACT%20SHEET.p df Lab Interpretation Normal (test code = 65476-1) [facility]2023-07-10 18:35:27 Test Item Value Reference Interpretation Comments Range SARS-COV2/RT-PCR Negative Negative The SARS-Co V-2 (test code = target nucleic 09524-5) acids are not detected in thi s [...] S ARS CoV-2 test is a rapid, real-marva e RT-PCR test intended for th e qualitative detection of nucleic acid fr om SARS-CoV-2 in a nasopharyngeal swab specimen [facility] from individual s suspected of COVID-19 by [...] revoked sooner. Fact Sheet for Healthcare Providers: https://www.[employer]/Documents/Xp ert%20Xpress%20SAR S%20CoV-2/Fact%20S heets/302-3802%20S ARS-COV-2%20HEALTH CARE%20PROVIDERS%2 0FACT%20SHEET.pdf Fact Sheet for Healthcare Patients: https://www.[employer]/Documents/Xp ert%20Xpress%20SAR S%20CoV-2/Fact%20S heets/302-3801%20S ARS-COV-2%20PATIEN T%20FACT%20SHEET.p df Lab Interpretation Normal (test code = 59289-1) [facility] (Asymptomatic ONLY)2023-07-10 18:35:27 Test Item Value Reference Interpretation Comments Range SARS-COV2/RT-PCR Negative Negative The SARS-Co V-2 (test code = target nucleic 74617-4) acids are not detected in thi s [...] S ARS CoV-2 test is a rapid, real-marva e RT-PCR test intended for th e [...] revoked sooner. Fact Sheet for Healthcare Providers: https://www.[employer]/Documents/Xp ert%20Xpress%20SAR S%20CoV-2/Fact%20S heets/302-3802%20S ARS-COV-2%20HEALTH CARE%20PROVIDERS%2 0FACT%20SHEET.pdf Fact Sheet for Healthcare Patients: https://www.[employer]/Documents/Xp ert%20Xpress%20SAR S%20CoV-2/Fact%20S heets/302-3801%20S ARS-COV-2%20PATIEN T%20FACT%20SHEET.p df Lab Interpretation Normal (test code = 29795-4) [facility] (As[facility]omatic ONLY)2023-07-10 18:35:27 Test Item Value Reference Interpretation Comments Range SARS-COV2/RT-PCR Negative Negative The SARS-Co V-2 (test code = target nucleic 33232-4) acids are not detected in thi s [...] S ARS CoV-2 test is a rapid, real-marva e RT-PCR test intended for th e [...] revoked sooner. Fact Sheet for Healthcare Providers: https://www.[employer]/Documents/Xp ert%20Xpress%20SAR S%20CoV-2/Fact%20S heets/302-3802%20S ARS-COV-2%20HEALTH CARE%20PROVIDERS%2 0FACT%20SHEET.pdf Fact Sheet for Healthcare Patients: https://wwwCallVU/Documents/Xp ert%20Xpress%20SAR S%20CoV-2/Fact%20S heets/302-3801%20S ARS-COV-2%20PATIEN T%20FACT%20SHEET.p df Lab Interpretation Normal (test code = 94586-9) [facility] ([facility])2023-07-10 18:35:27 Test Item Value Reference Range Interpretation Comments SARS-COV2/RT-PCR Negative Negative The SARS-Co V-2 target (test code = nucleic acids a re not 8144563) detected in thi s specimen. Negative result [...] revoked sooner. Fact Sheet for Healthcare Providers: https://www.[employer] m/Documents/Xpert%20Xpress%20SARS%20CoV-2/Fact%20Sheets/302-3802%59WMWQ-LCO-1%20 HEALTHCARE%20PROVIDERS%20FACT%20SHEET.pdf Fact Sheet for Healthcare Patients: https://www.[employer]View/Documents/Xpert%20Xp ress%20SARS%20CoV-2/Fact%20Sheets/3023801%31KKIG-OSM-4%20PATIENT%20FACT%20SHEET .pdfHIGH SENSITIVITY TROPONIN [id number] 13:56:59 Test Item Value Reference Range Interpretation Comments HIGH SENSITIVITY 8 pg/ml See_Comment [Automated message] TROPONIN I (test code = The system which 6060326) generated this result transmitted ref erence range: <=35. Th e reference range was not used to interpr et this result as normal/abnormal . Draw Machine Operator ID - esauThe DUST BOX TENDER STAT High Sensitivity Troponin-I results should be used in conjunction with other diagnostic information such as ECG, clinical observations and information, and patient symptoms to aid in the diagnosis of PA.BASIC METABOLIC [id number] 11:12:51 Test Item Value Reference Range Interpretation [...] not appl icable for dialysis patien ts Draw Machine Operator ID - esauOperator ID - esauUrinalysis w/Microscopic + Reflex to Culture 2023-07-10 09:23:59 Test Item Value Reference Range Interpretation Comments Color, UA (test code [place] = 5778-6) Clarity, UA (test Hazy code = 5767-9) Specific [place], UA 1.018 1.001-1.035 (test code = 5811-5) pH, UA (test code = 7.5 5.0-8.0 5803-2) Protein, UA (test 200 mg/dL Negative A code = 94705-2) Glucose, UA (test Negative Negative code = 365) Ketones, UA (test 100 mg/dL Negative A code = 2514-8) Bilirubin, UA (test Negative Negative code = 27632-8) Blood, UA (test code Large Negative A = 22690-2) Nitrite, UA (test Positive Negative A code = 5802-4) Leukocytes, UA (test Large Negative A code = 5799-2) Urobilinogen, UA 0.2 0.2-1.0 (test code = 69667-8) RBC, UA (test code = See_Comment [Autom ated 65743-2) message] The system which generated this result [...] = 2795) RAJESH (test code = RAJESH) Draw Machine Operator ID - [auto]Draw Machine Operator ID - tech Lab Interpretation Abnormal (test code = 58012-5) [facility] Culture 2023-07-10 09:23:59 Test Item Value Reference Range Interpretation Comments Color, UA (test code [place] = 5778-6) Clarity, UA (test Hazy code = 5767-9) Specific [place], UA 1.018 1.001-1.035 (test code = 5811-5) pH, UA (test code = 7.5 5.0-8.0 5803-2) Protein, UA (test 200 mg/dL Negative A code = 87606-1) Glucose, UA (test Negative Negative code = 365) Ketones, UA (test 100 mg/dL Negative A code = 2514-8) Bilirubin, UA (test Negative Negative code = 63829-3) Blood, UA (test code Large Negative A = 30708-1) Nitrite, UA (test Positive Negative A code = 5802-4) Leukocytes, UA (test Large Negative A code = 5799-2) Urobilinogen, UA 0.2 0.2-1.0 (test code = 82767-8) RBC, UA (test code = See_Comment [Autom ated 73796-3) message] The system which generated this result [...] = 2795) RAJESH (test code = RAJESH) Draw Machine Operator ID - [auto]Draw Machine Operator ID - tech Lab Interpretation Abnormal (test code = 00345-2) [facility]lex to Culture 2023-07-10 09:23:59 Test Item Value Reference Range Interpretation Comments Color, UA (test code [place] = 5778-6) Clarity, UA (test Hazy code = 5767-9) Specific [place], UA 1.018 1.001-1.035 (test code = 5811-5) pH, UA (test code = 7.5 5.0-8.0 5803-2) Protein, UA (test 200 mg/dL Negative A code = 44464-2) Glucose, UA (test Negative Negative code = 365) Ketones, UA (test 100 mg/dL Negative A code = 2514-8) Bilirubin, UA (test Negative Negative code = 80348-7) Blood, UA (test code Large Negative A = 77284-6) Nitrite, UA (test Positive Negative A code = 5802-4) Leukocytes, UA (test Large Negative A code = 5799-2) Urobilinogen, UA 0.2 0.2-1.0 (test code = 48303-0) RBC, UA (test code = See_Comment [Autom ated 83123-0) message] The system which generated this result [...] = 2795) RAJESH (test code = RAJESH) Draw Machine Operator ID - [auto]Draw Machine Operator ID - tech Lab Interpretation Abnormal (test code = 17816-6) [facility] Reflex to Culture 2023-07-10 09:23:59 Test Item Value Reference Range Interpretation Comments Color, UA (test code [place] = 5778-6) Clarity, UA (test Hazy code = 5767-9) Specific [place], UA 1.018 1.001-1.035 (test code = 5811-5) pH, UA (test code = 7.5 5.0-8.0 5803-2) Protein, UA (test 200 mg/dL Negative A code = 52635-8) Glucose, UA (test Negative Negative code = 365) Ketones, UA (test 100 mg/dL Negative A code = 2514-8) Bilirubin, UA (test Negative Negative code = 81015-8) Blood, UA (test code Large Negative A = 48436-9) Nitrite, UA (test Positive Negative A code = 5802-4) Leukocytes, UA (test Large Negative A code = 5799-2) Urobilinogen, UA 0.2 0.2-1.0 (test code = 19864-2) RBC, UA (test code = See_Comment [Autom ated 05489-5) message] The system which generated this result [...] = 2795) RAJESH (test code = RAJESH) Draw Machine Operator ID - [auto]Draw Machine Operator ID - tech Lab Interpretation Abnormal (test code = 67807-7) [facility] URINE [id number] 09:23:59 Test Item Value Reference Range Interpretation Comments COLOR (BEAKER) (test code = 470) [place] CLARITY (BEAKER) (test code = 469) Hazy [...] 25 /HPF SOURCE(BEAKER) (test code = 2795) Draw Machine Operator ID - [auto]Draw Machine Operator ID - [id number] 07:07:03 Test Item Value Reference Range Interpretation Comments MAGNESIUM (BEAKER) (test code = 2.0 mg/dL 1.6-2.6 627) Draw Machine Operator ID - [id number] 07:07:03 Test Item Value Reference Range Interpretation Comments PHOSPHORUS (BEAKER) (test code = 2.7 mg/dL 2.3-4.7 604) Draw Machine Operator ID - esauCBC W/PLT COUNT & AUTO [id number] 06:12:49 Test Item Value Reference Range Interpretation [...]
[2023-09-12 13:11] LABS: Absolute Lymphocytes (CBC) 1.9 K/uL (0.7-4.9); Lymphocytes % 15.1 % (15.3-44.8); MCV 84.8 fL (80-100); MPV 7.4 fL (7.6-11.3); Platelets 516 thou/uL (152-406); RBC Red Blood Cell Count 2.95 M/uL (4.33-5.43)
[2023-09-12 13:12] LABS: Protime INR 1.34
[2023-09-12 13:32] LABS: ALT/SGPT 16 U/L (16-61); AST/SGOT 14 U/L (15-37); Albumin 1.9 g/dL (3.4-5.0); Alkaline Phosphatase 75 U/L (45-117); BUN Blood Urea Nitrogen 13 mg/dL (7-18); Bicarbonate 29 mEq/L (21-32); Bilirubin Total 0.2 mg/dL (0.2-1.0); Glomerular Filtration Rate 106 ml/min (=/>90); Glucose Level 147 mg/dL (74-106); Magnesium 2.4 mg/dL (1.6-2.4); NT PRO-BNP 5857 pg/mL (<450); Potassium 3.8 mEq/L (3.5-5.1); Protein, Total 5.6 g/dL (6.4-8.2); Sodium Level 138 mEq/L (136-145); Troponin High Sensitivity 46.9 pg/mL (<58.9)
[2023-09-12 13:33] LABS: Bilirubin Direct < 0.1 mg/dL (0-0.2); Bilirubin Indirect, Calculated ND mg/dL (0.2-0.8)
[2023-09-12] MEDS ORDERED: NA CHLORIDE 0.9% 500 ML ONE (15:29)
--- NOTE | 2023-09-12 16:32 | EDPHYS ---
Physician Documentation [facility] Name: Miguel Baxter Age: 78 yrs Sex: Male : 1945 Arrival Date: 09/12/2023 Time: 12:06 Bed 8 Private MD: ED Physician Kulwant River HPI: 09/12 12:44 This 78 yrs old Male presents to ER via EMS with complaints of GI Bleeding. sp3 12:44 78-year-old male with a history of GI bleed with recent transfusion and transfer to [address], CHF, hypertension, hyperlipidemia now presents to the ED transferred from [facility] for appearing "pale". Patient has no complaints whatsoever and denies abdominal pain, dark stools, bloody stools, emesis, syncope, near syncope, or any other symptoms at this time. Restrictively transferred for pallor. ROS otherwise negative.. Historical: - Allergies: 12:25 PENICILLINS; me1 - PMHx: 12:25 CHF; tumor; Hypertension; High Cholesterol; CVA; Diabetes; me1 - PSHx: 12:25 Stented artery; me1 - Immunization history:: Adult Immunizations up to date. - Social history:: Smoking status: Patient reports the use of cigarette tobacco products, smokes one-half pack cigarettes per day. ROS: 12:45 Constitutional: Negative for fever, chills, and weight loss, Eyes: Negative for injury, sp3 pain, redness, and discharge, ENT: Negative for injury, pain, and discharge, Neck: Negative for injury, pain, and swelling, Cardiovascular: Negative for chest pain, palpitations, and edema, Respiratory: Negative for shortness of breath, cough, wheezing, and pleuritic chest pain, Back: Negative for injury and pain, MS/Extremity: Negative for injury and deformity, Neuro: Negative for headache, weakness, numbness, tingling, and seizure, Psych: Negative for depression, anxiety, suicide ideation, homicidal ideation, and hallucinations, Allergy/Immunology: Negative for hives, rash, and allergies, Endocrine: Negative for neck swelling, polydipsia, polyuria, polyphagia, and marked weight changes, Hematologic/Lymphatic: Negative for swollen nodes, abnormal bleeding, and unusual bruising, 12:45 All other systems are negative, Exam: 12:46 Constitutional: This is a well developed, well nourished patient who is awake, alert, sp3 and in no acute distress. Head/Face: Normocephalic, atraumatic. Eyes: Pupils equal round and reactive to light, extra-ocular motions intact. Lids and lashes normal. Conjunctiva and sclera are non-icteric and not injected. Cornea within normal limits. Periorbital areas with no swelling, redness, or edema. Neck: Trachea midline, no thyromegaly or masses palpated, and no cervical lymphadenopathy. Supple, full range of motion without nuchal rigidity, or vertebral point tenderness. No Meningismus. Chest/axilla: Normal chest wall appearance and motion. Nontender with no deformity. No lesions are appreciated. Cardiovascular: Regular rate and rhythm with a normal S1 and S2. No gallops, murmurs, or rubs. Normal PMI, no JVD. No pulse deficits. Respiratory: Lungs have equal breath sounds bilaterally, clear to auscultation and percussion. No rales, rhonchi or wheezes noted. No increased work of breathing, no retractions or nasal flaring. Abdomen/GI: Soft, non-tender, with normal bowel sounds. No distension or tympany. No guarding or rebound. No evidence of tenderness throughout. Back: No spinal tenderness. No costovertebral tenderness. Full range of motion. MS/ Extremity: Pulses equal, no cyanosis. Neurovascular intact. Full, normal range of motion. Neuro: Awake and alert, GCS 15, oriented to person, place, time, and situation. Cranial nerves II-XII grossly intact. Motor strength 5/5 in all extremities. Sensory grossly intact. Cerebellar exam normal. Normal gait. Psych: Awake, alert, with orientation to person, place and time. Behavior, mood, and affect are within normal limits. 12:46 Skin: Mild pallor noted.. 14:12 ECG was reviewed by the Attending Physician. EKG demonstrates normal sinus rhythm at 60 sp3 bpm with left axis deviation marked T wave inversions laterally which are different than his prior EKG from here dated August 27. However subsequent to then he was transferred to [facility] for GI bleed where he had an ischemic OK and has subsequently recovered. Baseline EKG subsequent to that event is not available. Vital Signs: 12:16 BP 149 / 75; Pulse 59; Resp 18; Temp 98.4(O); Pulse Ox 99% on R/A; Weight 63.5 kg; me1 Height 5 ft. 9 in. ; Pain 0/10; 12:45 BP 130 / 60; Pulse 60; Resp 18; Pulse Ox 99% ; db 13:45 BP 157 / 59; Pulse 56; Resp 18; Pulse Ox 98% ; db 14:00 BP 122 / 79; Pulse 56; Resp 16; Pulse Ox 98% on R/A; db 14:30 BP 130 / 69; Pulse 57; Resp 16; Pulse Ox 99% on R/A; db 15:18 BP 149 / 71; Pulse 57; Resp 16; Pulse Ox 98% on R/A; db 16:30 BP 159 / 70; Pulse 57; Resp 20; Temp 98.4(O); Pulse Ox 100% ; db 12:16 Body Mass Index 20.67 (63.50 kg, 175.26 cm) me1 12:16 Pain Scale: Adult me1 MDM: 12:16 Patient medically screened. 3 12:46 Data reviewed: vital signs, nurses notes, lab test result(s). ED course: 78-year-old 3 male with prior GI bleed and now pallor. Differential diagnosis is anemia versus natural skin color. I am not highly suspicious for acute bleed and patient's vital signs are all within normal limits. We will obtain laboratory values assessing for hemoglobin and if work-up is negative, will discharge back to the intermediate.. 14:13 ED course: Patient's hemoglobin today is 8.2 which is the last value that was at [place] [address] prior to his discharge home. Patient had received 1 unit of PRBC after that value several weeks ago. Patient is having no chest pain or any anginal equivalents and troponin is negative. I believe this EKG with T wave inversions this is new baseline. We will obtain 1 more EKG prior to discharge. We will also administer 1 unit of PRBC and discharge patient home with GI follow-up. Patient and family are okay with this. Patient remains in no acute distress resting comfortably conversing and no distress whatsoever.. 16:30 ED course: Second troponin and repeat EKG demonstrate no changes. We will discharge 3 patient home once blood is complete.. 09/12 12:16 Order name: Type And Screen sp3 09/12 12:16 Order name: Basic Metabolic Panel; Complete Time: 13:51 sp3 09/12 12:16 Order name: CBC with Diff; Complete Time: 13:51 sp3 09/12 12:16 Order name: LFT's; Complete Time: 13:51 sp3 09/12 12:16 Order name: Magnesium; Complete Time: 13:51 sp3 09/12 12:16 Order name: NT PRO-BNP; Complete Time: 13:51 sp3 09/12 12:16 Order name: PT-INR; Complete Time: 13:51 sp3 09/12 12:16 Order name: Troponin HS; Complete Time: 13:51 sp3 09/12 14:18 Order name: Troponin High Sensitivity: Prior to PRBC; Complete Time: 16:30 sp3 09/12 14:20 Order name: Bb Add On em1 09/12 14:49 Order name: Packed RBCs (Additional Unit) [facility] 09/12 12:16 Order name: EKG; Complete Time: 12:17 sp3 09/12 12:16 Order name: Cardiac monitoring; Complete Time: 13:03 sp3 09/12 12:16 Order name: EKG - Nurse/Tech; Complete Time: 13:00 sp3 09/12 12:16 Order name: IV Saline Lock; Complete Time: 13:03 sp3 09/12 12:16 Order name: Labs collected and sent; Complete Time: 13:03 sp3 09/12 12:16 Order name: O2 Sat Monitoring; Complete Time: 13:03 sp3 09/12 14:18 Order name: EKG - Nurse/Tech: Prior to PRBC; Complete Time: 15:05 sp3 Administered Medications: No medications were administered Disposition Summary: 09/12/23 16:31 Discharge Ordered Notes: Location: Home sp3 Condition: Stable sp3 Diagnosis - Slow GI bleed, anemia sp3 Followup: sp3 - With: Private Physician - When: Upon discharge from the Emergency Department - Reason: Recheck today's complaints Discharge Instructions: - Discharge Summary Sheet sp3 - Gastrointestinal Bleeding sp3 Forms: - Medication Reconciliation Form sp3 - Thank You Letter sp3 - Antibiotic Education sp3 - Prescription Opioid Use sp3 - Patient Portal Instructions sp3 - Leadership Thank You Letter sp3 Signatures: Dispatcher [employer] EDMS Kulwant River MD MD sp3 Aminta Silverio RN RN me1 Corrections: (The following items were deleted from the chart) 14:13 14:12 ECG was reviewed by the Attending Physician. EKG demonstrates normal sinus rhythm sp3 at 60 bpm with left axis deviation marked T wave inversions laterally which are different than his prior EKG from here dated August 27 sp3 14:48 14:15 PACKED RBC LEUKORED+BB.LAB.BRZ ordered. EDMS EDMS 14:48 14:17 ABO/RH typing ordered. EDMS EDMS 14:48 14:17 Antibody Screen ordered. EDMS EDMS
--- NOTE | 2023-09-12 16:32 | ER ---
Nurse's Notes [facility] Name: Miguel Baxter Age: 78 yrs Sex: Male : 1945 Arrival Date: 09/12/2023 Time: 12:06 Bed 8 Private MD: Diagnosis: Slow GI bleed, anemia Presentation: 09/12 12:16 Chief complaint: EMS states: sent by [facility] for concern for GI bleed. Patient is me1 pale. No bloody emesis or bloody stools. Recent hx of GI Bleed about 10 days ago requiring hospitalization and transfusion. Coronavirus screen: Vaccine status:. Coronavirus screen: Vaccine status: Patient reports being unvaccinated. Ebola Screen: No symptoms or risks identified at this time. Initial Sepsis Screen: Does the patient meet any 2 criteria? No. Patient's initial sepsis screen is negative. Does the patient have a suspected source of infection? No. Patient's initial sepsis screen is negative. Risk Assessment: Do you want to hurt yourself or someone else? Patient reports no desire to harm self or others. Onset of symptoms is unknown. 12:16 Method Of Arrival: EMS: [facility] 12:16 Acuity: JANAY 3 me1 Triage Assessment: 12:25 General: Appears comfortable, slender, well groomed, well developed, Behavior is calm, me1 cooperative, appropriate for age, Reports being sent by [facility] for suspected GI Bleed because he is pale. Denies any bloody emesis or stools. Reports recent GI bleed requiring hospitalization and transfusion. Pain: Denies pain. Neuro: Level of Consciousness is awake, alert, obeys commands, Oriented to person, place, time, situation, Appropriate for age. Cardiovascular: Capillary refill < 3 seconds Patient's skin is warm and dry. Respiratory: Airway is patent Respiratory effort is even, unlabored, Respiratory pattern is regular, symmetrical. GI: Patient currently denies bloody stool, nausea, vomiting. Historical: - Allergies: 12:25 PENICILLINS; me1 - PMHx: 12:25 CHF; tumor; Hypertension; High Cholesterol; CVA; Diabetes; me1 - PSHx: 12:25 Stented artery; me1 - Immunization history:: Adult Immunizations up to date. - Social history:: Smoking status: Patient reports the use of cigarette tobacco products, smokes one-half pack cigarettes per day. Screenin:28 [facility] ED Fall Risk Assessment (Adult) History of falling in the last 3 months, me1 including since admission No falls in past 3 months (0 pts) Confusion or Disorientation No (0 pts) Intoxicated or Sedated No (0 pts) Impaired Gait No (0 pts) Mobility Assist Device Used No (0 pt) Altered Elimination Yes (1 pt) Score/Fall Risk Level 0 - 2 = Low Risk. Abuse screen: Denies threats or abuse. Nutritional screening: No deficits noted. Tuberculosis screening: No symptoms or risk factors identified. Assessment: 12:28 General: See triage assessment. . me1 13:06 Reassessment: Patient appears in no apparent distress at this time. Patient and/or db family updated on plan of care and expected duration. Pain level reassessed. Patient is alert, oriented x 3, equal unlabored respirations, skin warm/dry/pink. feeling tired. worried about a bleed. 14:05 Reassessment: Patient appears in no apparent distress at this time. Patient and/or db family updated on plan of care and expected duration. Pain level reassessed. Patient is alert, oriented x 3, equal unlabored respirations, skin warm/dry/pink. FAMILY IS AT BEDSIDE. 14:43 Reassessment: PT CONSENTED FOR BLOOD. SIGNED AND ON CHART. db 15:00 Reassessment: Patient appears in no apparent distress at this time. Patient and/or db family updated on plan of care and expected duration. Pain level reassessed. Patient is alert, oriented x 3, equal unlabored respirations, skin warm/dry/pink. FAMILY IS AT BEDSIDE. 15:05 Reassessment: Patient appears in no apparent distress at this time. Patient and/or db family updated on plan of care and expected duration. Pain level reassessed. Patient is alert, oriented x 3, equal unlabored respirations, skin warm/dry/pink. Neuro: Level of Consciousness is awake, alert, obeys commands, Oriented to person, place, time, Appropriate for age. Respiratory: Airway is patent Respiratory effort is even, unlabored, Respiratory pattern is regular, symmetrical. GI: REPORTS BLOOD IN STOOL 3 DAYS AGO. 15:20 Reassessment: TRANSFUSION STARTED. SEE TRANSFUSION RECORD AND FLOWSHEET. db 16:30 Reassessment: BLOOD TRANSFUSION STOPPED. db Vital Signs: 12:16 BP 149 / 75; Pulse 59; Resp 18; Temp 98.4(O); Pulse Ox 99% on R/A; Weight 63.5 kg; me1 Height 5 ft. 9 in. ; Pain 0/10; 12:45 BP 130 / 60; Pulse 60; Resp 18; Pulse Ox 99% ; db 13:45 BP 157 / 59; Pulse 56; Resp 18; Pulse Ox 98% ; db 14:00 BP 122 / 79; Pulse 56; Resp 16; Pulse Ox 98% on R/A; db 14:30 BP 130 / 69; Pulse 57; Resp 16; Pulse Ox 99% on R/A; db 15:18 BP 149 / 71; Pulse 57; Resp 16; Pulse Ox 98% on R/A; db 16:30 BP 159 / 70; Pulse 57; Resp 20; Temp 98.4(O); Pulse Ox 100% ; db 12:16 Body Mass Index 20.67 (63.50 kg, 175.26 cm) me1 12:16 Pain Scale: Adult me1 ED Course: 12:11 Patient arrived in ED. em1 12:14 Kulwant River MD is Attending Physician. sp3 12:16 Aminta Silverio, KARLOS is Primary Nurse. me1 12:25 Triage completed. me1 12:27 Arm band placed on. iw 12:28 Patient has correct armband on for positive identification. Bed in low position. Call me1 light in reach. Side rails up X2. Provided Education on: POC. Verbalized understanding. . 12:28 No provider procedures requiring assistance completed. Maintain EMS IV. Dressing me1 intact. Good blood return noted. Site clean \T\ dry. Gauge \T\ site: 20 gauge RFA. 12:59 Initial lab(s) drawn, by me, sent to lab. db 15:06 Repeat lab(s) drawn. by me, sent to lab. db 16:58 IV discontinued, intact, bleeding controlled, No redness/swelling at site. db Administered Medications: No medications were administered Medication: 12:28 VIS not applicable for this client. me1 Outcome: 16:31 Discharge ordered by . sp3 16:58 Discharged to home via wheelchair, with family, db 16:58 Condition: stable 16:58 Discharge instructions given to patient, family, Instructed on discharge instructions, follow up and referral plans. 17:01 Patient left the ED. db Signatures: Shazia Beverly, RN RN iw Chandana Dominguez em1 Kulwant River MD MD sp3 Kerry Fishman RN RN db Aminta Silverio RN RN me1 Corrections: (The following items were deleted from the chart) 13:05 12:45 BP 130 / ???; Pulse 60bpm; Resp 18bpm; Pulse Ox 99%; db db
[2023-09-12 17:06] VITALS: TEMP 98.4
[2023-09-12 17:13] VITALS: BP 159/70; O2SAT 100
--- NOTE | 2023-09-13 14:43 | EKG ---
Test Date: 2023-09-12 Test Time: 14:55:59 Canceling And Cutting Control Clerk: FISH MEASUREMENT RESULTS: Intervals: Rate: 56 ND: 206 QRSD: 90 QT: 582 QTc: 561 [place]: P: 31 ND: 206 QRS: 121 T: 165 INTERPRETIVE STATEMENTS: Sinus bradycardia Left posterior fascicular block ST & Marked T wave abnormality, consider anterolateral ischemia Prolonged QT Abnormal ECG Compared to ECG 08/27/2023 21:40:50 Left posterior fascicular block now present T-wave abnormality now present Possible ischemia now present Sinus rhythm no longer present Left-axis deviation no longer present Myocardial infarct finding no longer present Electronically Signed On 09-13-23 14:40:06 CDT by Shawn Norton
== END 2023-09-12 17:01 | disposition home or self-care (01) ==
LOC: ER 12:06
PROC: 30233N1 Transfusion of Nonautologous Red Blood Cells into Peripheral Vein, Percutaneous Approach (ICD-10-PCS; principal; 2023-09-12)
DX: D64.9 Anemia, unspecified (principal); I10 Essential (primary) hypertension; I50.9 Heart failure, unspecified; F17.210 Nicotine dependence, cigarettes, uncomplicated; Z88.0 Allergy status to penicillin
CPT/HCPCS: 93005; 85025; 80048; 36415; 86900; 83735; 86850; 85610; 86901; 80076; 86920; 84484 ×2; 83880; 99284; 36430; P9016; J7040